=== PATIENT | female | born 1960 | race Caucasian/White ===

== ENCOUNTER 2022-09-14 10:24 | Outpatient (REF) | payer MEDICARE, SELFPAY ==
[2022-09-17 16:24] LABS: Acetylcholine Recept. Blocking <15 (<15)
[2022-09-18 18:18] LABS: Acetylcholine Receptor Binding <0.30 nmol/L
[2022-09-30 15:08] LABS: Acetylcholine Recep Modulating 15
== END 2022-09-14 10:25 | disposition home or self-care (01) ==
LOC: HO.LAB 10:24
PROVIDERS: Visit Provider Psychiatry & Neurology Neurology
DX: H02.409 Unspecified ptosis of unspecified eyelid (principal)
CPT/HCPCS: 36415; 83519

== ENCOUNTER 2022-10-15 11:57 | Outpatient (REF) | payer MEDICARE, SELFPAY ==
[2022-10-15 14:40] LABS: C Reactive Protein 0.25 mg/dL (< or = 0.50)
[2022-10-15 14:43] LABS: Erythrocyte Sedimentation Rate 5 MM/HR (0-20)
[2022-10-17 04:28] LABS: Lyme Abs Screen <0.90 index
== END 2022-10-15 11:58 | disposition home or self-care (01) ==
LOC: HO.LAB 11:57
PROVIDERS: Visit Provider Psychiatry & Neurology Neurology
DX: R51.9 Headache, unspecified (principal)
CPT/HCPCS: 36415; 85652; 86140; 86617; 86618

== ENCOUNTER 2022-12-09 10:04 | Outpatient (REF) | payer MEDICARE, SELFPAY ==
--- NOTE | ~2022-12-09 | XR_ITS ---
EXAMINATION: XR LUMBOSACRAL SPINE CLINICAL INFORMATION: Pain COMPARISON: None available. TECHNIQUE: 4 views of the lumbar spine inclusive of AP, lateral, flexion and extension views FINDINGS: Degenerative changes in the imaged lower thoracic spine. Slight rotatory dextroscoliosis of the lumbar spine. Facet arthritis from the mid to lower lumbar spine. Moderate multilevel lumbar spondylosis with multilevel loss of disc space height and hypertrophic change. Grade 1 anterolisthesis of L3 on L4 with flexion and extension. XR/XR lumbar spine 4V min IMPRESSION: Moderate multilevel degenerative changes in the lumbar spine with grade 1 anterolisthesis of L3 on L4.
== END 2022-12-09 10:05 | disposition home or self-care (01) ==
LOC: HO.HOSX 10:04
PROVIDERS: PCP Internal Medicine; Visit Provider Neurological Surgery
DX: M54.14 Radiculopathy, thoracic region (principal); M43.16 Spondylolisthesis, lumbar region
CPT/HCPCS: 72110; 99212

== ENCOUNTER 2022-12-09 10:04 | Outpatient (AMB) | payer MEDICARE, SELFPAY ==
--- NOTE | 2022-12-09 10:22 | HO.SPINEOV ---
Intake Intake Visit Reasons: Low back pain Intake Note: Mrs. Stapleton is here today c/o low back pain radiating upward into thoracic. MRI done @ [place]/brought disc. [employer] Required: No Assessment & Plan Assessment & Plan (1) Thoracic radiculopathy: Code(s): M54.14 - Radiculopathy, thoracic region (2) Spondylolisthesis, lumbar region: Code(s): M43.16 - Spondylolisthesis, lumbar region Plan Dear colleague Thank you for referring Claudette Stapleton to the office today with a chief complaint of severe low back pain and thoracic radiculopathy. HPI: This 62-year-old female developed low back pain after a fall 6 years ago . The pain is located in the lumbar region and radiates to the front of her thighs after 15 minutes of standing. Slight flexion at the point improves her symptoms. Changing positions from sitting to standing and vice versa are also painful. She states that she is unsteady on her legs due to polyneuropathy which gives her numbness under her feet. A 2nd complaint his a band like pain around the chest that prevents her from wearing bras. The following conservative treatment options were tried without success antiinflammatories, tylenol, physical therapy and cortisone shots PMH: Controlled diabetes, last A1c 7, hypertension, gastric sleeve Allergies: Ibuprofen Social history: . Nonsmoker Physical Exam: Pleasant female in obvious agony. This pain on palpation of the lower spine. Flexion-extension is limited and painful. Neurological exam reviews hyperesthesia bilateral involving the T10-T11 area. Normal reflexes. No motor deficits. Sensory exam is disturbed with reduced sensation on the bottom of her feet. With reduced sensation in the bottom of her feet Radiological Studies: MRI done at [facility] shows a grade 1-2 L3-4 spondylolisthesis. Dynamic x-rays of the lumbar spine review instability with flexion-extension. Impression/Plan: This 62-year-old female suffering from severe low back pain not responding to conservative treatments and a bilateral thoracic radiculopathy in a T10-T11 distribution. We briefly discussed minimally invasive correction of the L3-4 spondylolisthesis through an oblique lumbar interbody fusion but before we take that route, I would like to order an MRI of the thoracic spine to further investigate the reason for her thoracic radiculopathy. She will return to my office after the MRI of the thoracic spine is done. Thank you for allowing me to participate in your patients care. total time spent was 50 minutes in counseling ,coordination of plan, personal review of imaging, surgical decision making and subsequent plan Chris Cat MD, PhD Spine Fellowship Trained Neurosurgeon Director, [facility] Orders: Orders XR lumbar spine 4V min Today M43.16 - Spondylolisthesis, lumbar region MR thoracic spine wo con Today M54.14 - Radiculopathy, thoracic region Coding Level of Care Code Est Pt Level 4 (32478) Diagnoses Thoracic radiculopathy M54.14 Spondylolisthesis, lumbar region M43.16
== END 2022-12-09 11:30 | disposition home or self-care (01) ==
PROVIDERS: PCP Internal Medicine; Visit Provider Neurological Surgery
DX: M54.14 Radiculopathy, thoracic region (principal); M43.16 Spondylolisthesis, lumbar region
CPT/HCPCS: 99214

== ENCOUNTER 2023-02-18 10:26 | Outpatient (REF) | payer MEDICARE, SELFPAY ==
--- NOTE | ~2023-02-18 | MR_ITS ---
EXAMINATION: MR THORACIC SPINE WITHOUT CONTRAST CLINICAL INFORMATION: Radiculopathy, thoracic region. COMPARISON: None available. TECHNIQUE: MRI of the thoracic spine was obtained using routine sequences without contrast. FINDINGS: The thoracic vertebral bodies demonstrate normal heights and alignment. The disc heights are fairly well preserved. A few small Schmorl's nodes are noted. There is no bone marrow edema. The thoracic cord signal appears normal. There is a small central protrusion at T4-T5 and T5-T6. There is no significant narrowing of the spinal canal or neural foramina. The thoracic soft tissues are within normal limits allowing for fatty atrophy of the posterior paraspinal musculature. MR/MR thoracic spine wo con IMPRESSION: No significant narrowing of the spinal canal or neural foramina. Small central protrusion seen at T4-T5 and T5-T6.
== END 2023-02-18 10:27 | disposition home or self-care (01) ==
LOC: HO.MRI 10:26
PROVIDERS: PCP Internal Medicine; Visit Provider Neurological Surgery
DX: M54.14 Radiculopathy, thoracic region (principal)
CPT/HCPCS: 72146

== ENCOUNTER 2023-02-24 11:49 | Outpatient (AMB) | payer MEDICARE, SELFPAY ==
--- NOTE | 2023-02-24 11:56 | MHC.OFFVIS ---
Intake Intake Visit Reasons: MRI follow up [employer] Required: No Assessment & Plan Assessment & Plan (1) Spondylolisthesis, lumbar region: Code(s): M43.16 - Spondylolisthesis, lumbar region Plan Dear colleague, On 02/24/2023 I saw for follow-up Adelina Stapleton after obtaining an MRI of the thoracic spine. As you know, she suffering from back pain and neurogenic claudication due to a grade 2 L3-4 spondylolisthesis and associated spinal stenosis. In addition, she has thoracic radiculopathy but the MRI showed no abnormalities. She would like to go ahead and have her symptoms of neurogenic claudication treated. We discussed an oblique lumbar interbody fusion to minimally invasive correct her spondylolisthesis and indirectly decompress her nervous structures. She will need to stop her Eliquis and aspirin, which she is taken for a pulmonary embolism. She will obtain clearance from her primary care physician. This surgery scheduled is scheduled for 05/10/2023. I spent 25 minutes in his consult to discuss the MRI results and further plan of care, including surgery. Chris Cat MD, PhD Spine Fellowship Trained Neurosurgeon Director, [facility] Coding Level of Care Code Est Pt Level 3 (31485) Diagnoses Spondylolisthesis, lumbar region M43.16
== END 2023-02-24 12:19 | disposition home or self-care (01) ==
PROVIDERS: PCP Internal Medicine; Visit Provider Neurological Surgery
DX: M43.16 Spondylolisthesis, lumbar region (principal)
CPT/HCPCS: 99213

== ENCOUNTER → 2023-02-24 11:49 | Outpatient (BNVA) | payer MEDICARE, SELFPAY | PROVIDERS: PCP Internal Medicine; Visit Provider Neurological Surgery | DX: M43.16 Spondylolisthesis, lumbar region (principal) | CPT/HCPCS: 99212 ==

== ENCOUNTER → 2023-04-29 13:43 | Outpatient (BNV) | payer MEDICARE, SELFPAY | PROVIDERS: Admitting Provider Neurological Surgery; PCP Internal Medicine; Visit Provider Internal Medicine | DX: Z01.818 Encounter for other preprocedural examination (principal) | CPT/HCPCS: 93010 ==

== ENCOUNTER 2023-05-31 08:49 | Inpatient (IN) | payer OTHER, SELFPAY ==
--- NOTE | 2023-04-29 | ECG_ITS ---
Test Reason : pre op Blood Pressure : / mmHG Vent. Rate : 072 BPM Atrial Rate : 072 BPM P-R Int : 136 ms QRS Dur : 086 ms QT Int : 408 ms P-R-T Axes : 009 -15 013 degrees QTc Int : 446 ms Normal sinus rhythm Normal ECG No previous ECGs available Referred By: Lissette Roper Electronically Signed By:GEOFF ALVAREZ
[2023-04-29 12:41] VITALS: BP 136/63; PULSE 77; RESP 20; O2SAT 98; BMI 36.2
--- NOTE | 2023-04-29 12:52 | HO.ANESPROP2 ---
HPI - Anesthesia Eval Consult details Narrative: Resched d/t +COVID 62yo F for L3-4 Oblique Lumbar Interbody Fusion, 05/10/23 No recent illness. Right side CP pt relates to drinking water too fast and s/p gastric bypass RYAN. Does not jazlyn CPAP d/t claustrophobia Hx PE. No longer on Eliquis. Stopped by PCP 03/2023 DM. FBS ~ 100. Ozempic on GERD. Well controlled on ppi Asthma. Symbicort. Albuterol ~ 1 x weekly Bilat foot neuropathy. Anesthesia Pre-Procedure Meds Is the patient on any of the following meds?: Semaglutide (Ozempic) (Last dose planned 04/29/23) If Yes to any meds - educate patient: Pt education - increased risk of aspiration and Pt education - possibility of cancelled proc at provider's discretion PMFSH Active Problems Active Problems: All Active Problems (Updated 04/29/23 @ 12:31 by Armida Juarez RN) Thoracic radiculopathy (Acute) Spondylolisthesis, lumbar region (Acute) Past Medical History Medical History (Updated 04/29/23 @ 12:31 by Armida Juarez RN) Arthritis GERD (gastroesophageal reflux disease) Depression Polysubstance abuse Osteoarthritis Sleep apnea Elevated cholesterol Bipolar 1 disorder RLS (restless legs syndrome) Asthma HTN (hypertension) Pulmonary embolism Peripheral neuropathy Diabetes Family History Family history of problems with anesthesia: No Surgical History Surgical History (Updated 04/29/23 @ 12:33 by Armida Juarez RN) H/O colonoscopy History of total right knee replacement Hx of tonsillectomy Hx of tubal ligation Hx of hysterectomy History of sleeve gastrectomy History of Problems with Anesthesia: No Social History Social History Are you a primary healthcare account manager to a significant other at home: No Do you presently have visiting nurse or other home services: Yes ([facility]) Patient Tobacco Use Status: Never used Tobacco Use of substances other than those prescribed or required for medical reasons: Yes Substance Use Type Other:: cocaine-last used ~2003 Have you been hit, kicked, punched, or otherwise hurt by someone within the past year? If so, by whom?: No Are you DNR?: No Advance Directives Information Provided: Yes (as above noted) Advance Directives on File: No Recently lost weight without trying: No Eating poorly because of decreased appetite: No Nutrition Risks: No Nutritional Risk Poor oral hygiene: Yes (multiple missing teeth) Meds Allergies Allergy/AdvReac Type Severity Reaction Status Date / Time cephalexin [From Keflex] Allergy Intermediate Swelling Verified 04/28/23 11:05 glipizide Allergy Intermediate Rash Verified 04/28/23 11:05 metformin Allergy Intermediate Itching Verified 04/28/23 11:05 morphine Allergy Intermediate Nausea and Verified 04/29/23 12:35 Vomiting/ineffective ropinirole [From Requip] Allergy Intermediate Nausea and Verified 04/28/23 11:05 Vomiting CLARITZA Inhibitors AdvReac Intermediate Cough Verified 04/28/23 11:05 Home Medications Medication Instructions Recorded Confirmed Last Taken Type albuterol sulfate 90 mcg/actuation 2 puff inhalation Q6H PRN 04/28/23 04/29/23 Unknown History aerosol inhaler (Ventolin HFA) Shortness Of Breath aspirin 81 mg tablet,delayed 81 mg PO DAILY 04/28/23 04/28/23 Unknown History release budesonide-formoterol HFA 160 2 puff inhalation BID 04/28/23 04/29/23 Unknown History mcg-4.5 mcg/actuation aerosol inhaler (Symbicort) bupropion HCl 100 mg tablet,12 hr 100 mg PO QAM 04/28/23 04/28/23 Unknown History sustained-release yfamorbbuw-kjqmsgtsklczr-puxehxss 1 tab PO Q6H PRN pain 04/28/23 04/28/23 Unknown History 50 mg-325 mg-40 mg tablet clonazepam 1 mg tablet 1 mg PO TID 04/28/23 04/28/23 Unknown History furosemide 40 mg tablet 20 mg PO DAILY 04/28/23 04/28/23 Unknown History gabapentin 800 mg tablet 800 mg PO BID 04/28/23 04/28/23 Unknown History hydroxyzine HCl 10 mg tablet 10 mg PO TID PRN Anxiety 04/28/23 04/28/23 Unknown History insulin aspart U-100 100 unit/mL 4 - 30 unit subcut TID 04/28/23 04/28/23 Unknown History (3 mL) subcutaneous pen lorazepam 1 mg tablet 1 mg PO TID 04/28/23 04/28/23 Unknown History melatonin 10 mg-lemon balm leaf 1 tab PO BEDTIME 04/28/23 04/28/23 Unknown History extract 1 mg tablet metoprolol tartrate 25 mg tablet 25 mg PO DAILY 04/28/23 04/28/23 Unknown History potassium chloride 10 mEq 10 meq PO DAILY 04/28/23 04/28/23 Unknown History tablet,extended release pramipexole 0.25 mg tablet 0.25 mg PO DAILY 04/28/23 04/28/23 Unknown History pregabalin 150 mg capsule 150 mg PO BID 04/28/23 04/28/23 Unknown History semaglutide 0.25 mg or 0.5 mg (2 0.5 mg subcut QWEEK 04/28/23 04/28/23 Unknown History mg/3 mL) subcutaneous pen injector (Ozempic) topiramate 100 mg tablet 100 mg PO BID 04/28/23 04/28/23 Unknown History trazodone 100 mg tablet 300 mg PO BEDTIME 04/28/23 04/28/23 Unknown History vortioxetine 20 mg tablet 20 mg PO DAILY 04/28/23 04/28/23 Unknown History (Trintellix) lactulose 10 gram/15 mL oral 15 ml PO QAM 04/29/23 04/29/23 Unknown History solution pantoprazole 40 mg tablet,delayed 40 mg PO DAILY 04/29/23 04/29/23 Unknown History release polyethylene glycol 3350 17 gram 17 g PO DAILY PRN constipation 04/29/23 04/29/23 Unknown History oral powder packet sennosides 8.6 mg tablet (senna) 8.6 mg PO BEDTIME 04/29/23 04/29/23 Unknown History Exam Height,Weight and Vital Signs: Height 5 ft 4 in Weight 95.708 kg Last Vital Signs Pulse 77 04/29/23 12:41 Resp 20 04/29/23 12:41 BP 136/63 04/29/23 12:41 Pulse Ox 98 04/29/23 12:41 O2 Del Method Room Air 04/29/23 12:41 Pertinent Lab Results Pertinent Lab Results: Lab Results 04/29/23 04/29/23 Range/Units 13:20 13:22 WBC 16.1 H (4.8-10.8) X10*3/uL RBC 4.69 (4.20-5.50) X10*6/uL Hgb 14.2 (12.0-16.0) g/dl Hct 41.3 (37.0-47.0) % MCV 88.1 (80.0-98.0) fL MCH 30.3 (27.0-33.0) pg MCHC 34.4 (31.0-35.0) g/dl RDW 13.2 (11.0-16.0) % Plt Count 150 L (160-400) X10*3/uL MPV 12.4 H (9.4-12.3) fL Absolute Nucleated RBC 0.000 (0.0-0.012) X10*3/uL Nucleated RBC % (auto) 0.0 (0.0-0.2) /100WBC Sodium 140 (135-145) mmol/L Potassium 4.1 (3.3-5.1) mmol/L Chloride 105 (96-108) mmol/L Carbon Dioxide 23 (22-29) mmol/L Anion Gap 16 (12-20) BUN 16 (9-16) mg/dL Creatinine 0.94 (0.5-1.4) mg/dL Estim Creat Clear Calc 69.6 Estimated GFR > 60 Random Glucose 127 H (60-115) mg/dL Estimat Average Glucose 103 mg/dL Hemoglobin A1c % 5.2 (<6.0) % Calcium 9.3 (8.4-10.2) mg/dL Blood Type A Negative Antibody Screen NEGATIVE Narrative Narrative: EKG 04/2023 Vent. Rate : 072 BPM Atrial Rate : 072 BPM P-R Int : 136 ms QRS Dur : 086 ms QT Int : 408 ms P-R-T Axes : 009 -15 013 degrees QTc Int : 446 ms Normal sinus rhythm Normal ECG No previous ECGs available Airway Mallampati Class: III TM Dist: >3cm Neck ROM: Full Loose/Missing/Broken Teeth: Yes (All lower teeth missing, upper molars missing) Heart: RRR Lungs: CTAB Assessment and Plan Assessment Anesthesia Assessment: Anesthesia Plan Discussed and PAT Visit Final Anesthetic Review Family History of Problems with Anesthesia: No History of Problems with Anesthesia: No
[2023-04-29 13:52] LABS: Hematocrit 41.3 % (37.0-47.0); Hemoglobin 14.2 g/dl (12.0-16.0); Mean Corpuscular HGB Conc 34.4 g/dl (31.0-35.0); Mean Corpuscular Hemoglobin 30.3 pg (27.0-33.0); Mean Corpuscular Volume 88.1 fL (80.0-98.0); Mean Platelet Volume 12.4 fL (9.4-12.3); Platelet Count 150 X10*3/uL (160-400); Red Blood Count 4.69 X10*6/uL (4.20-5.50); Red Cell Distribution Width 13.2 % (11.0-16.0); White Blood Count 16.1 X10*3/uL (4.8-10.8)
[2023-04-29 14:08] LABS: Estimated Average Glucose 103 mg/dL; Hemoglobin A1c % 5.2 % (<6.0)
[2023-04-29 14:12] LABS: Anion Gap 16 (12-20); Blood Urea Nitrogen 16 mg/dL (9-16); Calcium 9.3 mg/dL (8.4-10.2); Carbon Dioxide 23 mmol/L (22-29); Chloride 105 mmol/L (96-108); Creatinine Clr Calc Pharmacy 69.6; Estimated Glomerular Filt Rate > 60; Glucose Random 127 mg/dL (60-115); Potassium 4.1 mmol/L (3.3-5.1); Sodium 140 mmol/L (135-145)
[2023-05-31] VITALS (9 sets, daily range): BP systolic 108–148; BP diastolic 58–79; PULSE 56–84; RESP 16–22; TEMP 36.4–36.8; O2SAT 93–98; BMI 34.7
--- NOTE | ~2023-05-31 | CT_ITS ---
EXAMINATION: CT ABDOMEN AND PELVIS WITHOUT CONTRAST CLINICAL INFORMATION: Abdominal pain. Concern for perforation. COMPARISON: Previous of the same day. TECHNIQUE: Multidetector volumetric imaging was performed from the superior aspect of the liver through the pubic symphysis. Sagittal and coronal reformatted images were obtained on the technologist's workstation. This CT examination was performed using dose optimization techniques as appropriate, variously including the following: *Automated exposure control *Adjustment of mA and/or kV according to patient size (this includes techniques or standardized protocols for targeted exams where dose is matched to indication/reason for exam; i.e. extremities or head) *Use of iterative reconstruction technique DLP: 1544 mGy-cm FINDINGS: LUNG BASES: There is bilateral lower lung field consolidation greater on the left associated with small bilateral pleural effusions. LIVER, GALLBLADDER, AND BILIARY TREE: The liver is normal in size, shape, and attenuation. No focal hepatic lesion or biliary ductal dilatation is present. The gallbladder is mildly distended. PANCREAS: Unremarkable. SPLEEN: Unremarkable. ADRENAL GLANDS: Unremarkable. KIDNEYS AND URETERS: The kidneys are normal in size, shape, and attenuation. No hydronephrosis, hydroureter, or calculi seen. No perinephric stranding. BLADDER: A Segovia catheter decompresses the urinary bladder. GASTROINTESTINAL TRACT: A gastric tube is noted in place. Gastric surgical clips are noted. Orally ingested contrast reaches mid small bowel loops. The appendix is not confidently seen as a separate structure. There is free intraperitoneal air which appears to be mildly increased compared to previous. There is also increasing mildly dense free fluid within the abdomen greater on the right. ABDOMINAL WALL: No significant hernia is appreciated. LYMPH NODES: Normal. VASCULAR: Unremarkable. PELVIC VISCERA: Unremarkable. OSSEOUS STRUCTURES: There is diffuse thoracolumbar disc degenerative change. CT/CT abdomen pelvis wo IV con IMPRESSION: 1. Free intraperitoneal air mildly increased compared with previous. Increasing mildly dense free fluid within the abdomen greater on the right. Gastrointestinal perforation suspected. The site of perforation is undetermined. 2. No bowel obstruction. 3. Bilateral lower lung field consolidation greater on the left with small bilateral pleural effusions. Suspect a combination of atelectasis and pneumonia. Fleischner guidelines were followed.
--- NOTE | ~2023-05-31 | XR_ITS ---
EXAMINATION: XR CHEST CLINICAL INFORMATION: Question pneumonia or pulmonary embolism. COMPARISON: None available. TECHNIQUE: Frontal view of the chest was obtained. FINDINGS: The lung volumes are low. The cardiac and mediastinal contours are normal. There are increased central bronchovascular markings and increased attenuation at the left lung base. It is uncertain whether this is artifactual due to low lung volumes and overlying soft tissues. It is difficult to exclude airways disease/a small pneumonia or mild pulmonary edema. No pleural effusion or pneumothorax. Degenerative changes of the spine. XR/XR chest 1V IMPRESSION: Low lung volumes. Increased central bronchovascular markings and increased attenuation at the left lung base. It is difficult to exclude airways disease/pneumonia or mild pulmonary edema.
--- NOTE | ~2023-05-31 | XR_ITS ---
EXAMINATION: XR CHEST CLINICAL INFORMATION: Hypoxia. COMPARISON: CT abdomen and pelvis of 06/07/2023 and 06/02/2023. Chest radiograph 06/02/2023 TECHNIQUE: Frontal view of the chest was obtained. FINDINGS: ET tube not visualized. Left IJ CVC tip projects at the cavoatrial junction. Enteric tip tube projects in the left upper quadrant of the abdomen. Stable cardiomediastinal silhouette. Low lung volumes. There is no gross pneumothorax. Increased bilateral, predominantly bibasilar zfcx-ywgbsmj-jznw-right opacities. Small left pleural effusion and trace right effusion. Diffusely prominent interstitial opacities. Previously identified pneumoperitoneum is less conspicuous. XR/XR chest 1V IMPRESSION: 1. Increased bilateral, predominantly bibasilar ltlr-jswbbca-qgmk-right opacities. Small left pleural effusion and trace right effusion. Diffusely prominent interstitial opacities. Differential considerations include infectious/inflammatory process, atelectasis and/or edema. 2. Previously identified pneumoperitoneum is less conspicuous. This study was presented today June 07, 2023 for interpretation. Stat results provided at this time as requested by referring provider.
--- NOTE | ~2023-05-31 | CT_ITS ---
EXAMINATION: CT ANGIOGRAM OF THE CHEST WITH AND WITHOUT CONTRAST (CT PULMONARY ANGIOGRAM FOR PE) CLINICAL INFORMATION: Reason for Exam Hypoxia, chest discomfort, elevated trop COMPARISON: Chest radiograph 06/07/2023 TECHNIQUE: Prior to contrast administration, noncontrast localization images were obtained. Subsequently, multidetector volumetric imaging was performed from the thoracic inlet to below the diaphragms following the administration of 80 mL Omnipaque 350 intravenous contrast. No contrast reaction reported Sagittal, coronal, and MIP oblique sagittal reformatted images were obtained on the CT workstation, uploaded to PACS, and reviewed. This CT examination was performed using dose optimization techniques as appropriate, variously including the following: *Automated exposure control *Adjustment of mA and/or kV according to patient size (this includes techniques or standardized protocols for targeted exams where dose is matched to indication/reason for exam; i.e. extremities or head) *Use of iterative reconstruction technique Total exam dose-length product 112 mGy-cm FINDINGS: QUALITY OF STUDY/CONTRAST BOLUS: Satisfactory. PULMONARY ARTERIES: No pulmonary emboli. THORACIC AORTA: No aneurysm. LUNG: Bibasilar infiltrates left greater than right could reflect pneumonia. Patchy alveolar infiltrates are seen extending into the right and left midlung and upper lungs possibly related to pneumonia. PLEURA: Moderate sized bilateral pleural effusions. MEDIASTINUM: Normal heart size. No pericardial effusion. No hilar or mediastinal lymphadenopathy. No evidence of septal bowing or right heart strain. CORONARY ARTERY CALCIFICATION: Minor CHEST WALL/AXILLA: No axillary or internal mammary lymphadenopathy. OSSEOUS STRUCTURES: No acute or suspicious osseous abnormality. UPPER ABDOMEN: Unremarkable. No reflux of contrast into the hepatic veins to suggest elevated right heart pressures. CT/CT angio chest PE protocol IMPRESSION: No evidence for acute PE. Bilateral pleural effusions and infiltrates. VTE: negative.
--- NOTE | ~2023-05-31 | XR_ITS ---
EXAMINATION: XR CHEST CLINICAL INFORMATION: Intubation and left CVC placement. COMPARISON: Chest radiograph 06/02/2023. CT abdomen/pelvis 06/02/2023. TECHNIQUE: Frontal view of the chest was obtained. FINDINGS: Endotracheal tube terminates at 3.5 cm above the pooja. Left IJ CVC tip projects at the level of the lower SVC. Enteric tube courses into the abdomen and terminates at the level of the stomach. Stable prominence of the cardiomediastinal silhouette. Low lung volumes with diffuse bronchovascular crowding. Increased asymmetric airspace opacities projecting over the retrocardiac left lower lobe. No significant pleural effusion or pneumothorax. No acute osseous findings. Redemonstration of pneumoperitoneum. XR/XR chest 1V IMPRESSION: 1. Endotracheal tube terminates at 3.5 cm above the pooja. 2. Left IJ CVC tip projects at the level of the lower SVC. 3. Increased focal airspace opacities in the retrocardiac left lower lobe, nonspecific to represent atelectasis, aspiration or infiltrates. Continued follow-up recommended. 4. Redemonstration of pneumoperitoneum.
--- NOTE | ~2023-05-31 | XR_ITS ---
EXAMINATION: XR CHEST CLINICAL INFORMATION: NG tube placement COMPARISON: Same day earlier TECHNIQUE: Frontal view of the chest was obtained. FINDINGS: Examination is limited due to low lung volume. Nasogastric tube is placed with the tip of coiled tube seen below the diaphragm most likely in the stomach. There is likely intraperitoneal free air seen below the diaphragm. Evaluation of lung taylor is limited due to low volume but there is likely left lower lobe airspace disease adjacent to the diaphragm. XR/XR chest 1V IMPRESSION: Well-positioned NG tube. Pneumoperitoneum
--- NOTE | ~2023-05-31 | FL_ITS ---
EXAMINATION: XR FLUOROSCOPY WITH IMAGES CLINICAL INFORMATION: Fluoroscopy in OR for L3-L4 interbody fusion. COMPARISON: Radiographs lumbar spine 12/09/2022. Thoracic spine 02/18/2023. TECHNIQUE: Fluoroscopy Supervised By: Dr. Cat. Fluoroscopy Time: 48.8 seconds. Cumulative Dose: 49.948 mGy. DAP: 130.688 Gycm2. Images: 1. FINDINGS: Fluoroscopic guidance was provided by the referring physician, Dr. Cat. Radiologist was not in attendance at the time of the exam. Images were later provided to the radiologists. Fluoroscopic images were obtained of intraoperative hardware. Single provided image demonstrates posterior fusion hardware with bilateral rods and screws as well as interdisc spacer at L3-L4. FL/FL guidance in OR IMPRESSION: Fluoroscopy provided for intraoperative guidance for L3-L4 interbody fusion. Please refer to operative report by the supervising physician for more detailed evaluation.
--- NOTE | ~2023-05-31 | CT_ITS ---
EXAMINATION: CT ABDOMEN AND PELVIS WITH CONTRAST CLINICAL INFORMATION: Perforated viscus, febrile, rule out abscess COMPARISON: CT abdomen and pelvis 06/02/2023 TECHNIQUE: Multidetector volumetric images were obtained from the superior aspect of the liver through the pubic symphysis following administration 85 mL of Omnipaque 350 intravenous contrast. Sagittal and coronal reformatted images were obtained on the technologist's workstation. Oral contrast: No This CT examination was performed using dose optimization techniques as appropriate, variously including the following: *Automated exposure control *Adjustment of mA and/or kV according to patient size (this includes techniques or standardized protocols for targeted exams where dose is matched to indication/reason for exam; i.e. extremities or head) *Use of iterative reconstruction technique DLP: 808 mGy-cm FINDINGS: LUNG BASES: Small bilateral pleural effusions, increased on the left compared to prior exam with bibasilar consolidation/atelectasis. LIVER, GALLBLADDER, AND BILIARY TREE: The liver is normal in size, shape, and attenuation. Focal area of hypoattenuation in the left hepatic lobe adjacent to the falciform ligament, which may be related to focal fat infiltration. Otherwise no focal hepatic lesion or biliary ductal dilatation is present. The gallbladder is unremarkable with no evidence of radiopaque gallstones, gallbladder wall thickening, or obvious pericholecystic inflammatory changes. Small amount of perihepatic ascites is noted. PANCREAS: Unremarkable. SPLEEN: Unremarkable. ADRENAL GLANDS: Unremarkable. KIDNEYS AND URETERS: Noted mild cortical thinning along the posterior upper pole of the right kidney. Subtle hypoattenuation along the posterior upper pole of the right kidney, series 5 image 67. The kidney is normal in size shape and attenuation. No hydronephrosis, hydroureter, or calculi seen. No perinephric stranding. BLADDER: The urinary bladder is decompressed with Segovia's catheter. GASTROINTESTINAL TRACT: Again noted enteric tube with its tip terminating in the body the stomach. Again noted surgical sutures along the stomach. The stomach is decompressed. No dilated small bowel loops. Again noted surgical anastomosis involving the small bowel loops in the left mid abdomen. The colon is mostly decompressed limiting evaluation. The appendix is unremarkable. Interval resolution of previously noted free intraperitoneal air. Small abdominopelvic ascites. Mild mesenteric fat stranding. No definite peripherally enhancing collections to suggest abscess. ABDOMINAL WALL: No significant hernia is appreciated. Diffuse anasarca. LYMPH NODES: No enlarged abdominopelvic lymph nodes. VASCULAR: The abdominal aorta is nonaneurysmal with mild atherosclerosis. PELVIC VISCERA: Unremarkable. OSSEOUS STRUCTURES: Stable postsurgical changes related to instrumented posterior spinal and interbody fusion at L3-L4. The surgical hardware is intact. Multilevel degenerative changes of the visualized spine. Multilevel degenerative changes of the visualized spine. CT/CT abdomen pelvis w IV con IMPRESSION: Interval resolution of previously noted free intraperitoneal air. Small abdominopelvic ascites. Mild mesenteric fat stranding. No definite peripherally enhancing collections to suggest evidence of abscess. No evidence of bowel obstruction. Diffuse anasarca. Small bilateral pleural effusions, increased on the left compared to prior exam bibasilar consolidation/atelectasis. Mild cortical thinning along the upper pole of the right kidney. Subtle hypoattenuation along the posterior upper pole of the right kidney which is incompletely evaluated may be related to cortical scarring. This can be correlated with retroperitoneal ultrasound as clinically indicated. Fleischner guidelines were followed.
--- NOTE | ~2023-05-31 | CT_ITS ---
EXAMINATION: CT ABDOMEN AND PELVIS WITHOUT CONTRAST CLINICAL INFORMATION: Concern for bowel injury. COMPARISON: None available. TECHNIQUE: Multidetector volumetric imaging was performed from the superior aspect of the liver through the pubic symphysis. Sagittal and coronal reformatted images were obtained on the technologist's workstation. This CT examination was performed using dose optimization techniques as appropriate, variously including the following: *Automated exposure control *Adjustment of mA and/or kV according to patient size (this includes techniques or standardized protocols for targeted exams where dose is matched to indication/reason for exam; i.e. extremities or head) *Use of iterative reconstruction technique DLP: 688 mGy-cm FINDINGS: LUNG BASES: Consolidation in the lower lobes may represent atelectatic change. Small hiatal hernia. LIVER, GALLBLADDER, AND BILIARY TREE: The noncontrast liver is normal in size and contour. No biliary ductal dilatation is present. The gallbladder is distended. PANCREAS: Unremarkable. SPLEEN: Unremarkable. ADRENAL GLANDS: Unremarkable. KIDNEYS AND URETERS: The kidneys are symmetric in size. No hydronephrosis. No perinephric stranding. BLADDER: Unremarkable. GASTROINTESTINAL TRACT: Status post gastric surgery. Surgical anastomosis in the left midabdomen. No focal bowel wall thickening. No small bowel obstruction. PERITONEUM: Small ascites in abdomen and pelvis. There is moderate pneumoperitoneum. LYMPH NODES: No bulky lymphadenopathy. VASCULAR: Normal caliber abdominal aorta. PELVIC VISCERA: Uterus is surgically absent. OSSEOUS STRUCTURES: Status post L3-L4 interbody fusion. CT/CT abdomen pelvis wo IV con IMPRESSION: Small ascites in the abdomen and pelvis. Moderate pneumoperitoneum. Evaluation of bowel perforation is limited by the lack of administration of enteric contrast to assess for contrast extravasation. Bilateral lower lobe consolidation. Atelectasis versus pneumonia including aspiration.
--- NOTE | ~2023-05-31 | US_ITS ---
EXAMINATION: US VENOUS ULTRASOUND WITH DOPPLER LOWER EXTREMITY, BILATERAL CLINICAL INFORMATION: Elevated d-dimer, swelling. COMPARISON: None available. TECHNIQUE: Ultrasound of the deep veins is performed from the hip to the calf with compression sonography and color and pulse Doppler assessment. Spectral analysis with color-flow imaging is performed. FINDINGS: RIGHT: There is normal venous compression and respiratory variation and augmented flow. The visualized common femoral vein, superficial femoral vein, profunda femoral vein, popliteal vein, and the trifurcation region shows no evidence of deep venous thrombosis. There is no significant popliteal fossa cyst. LEFT: There is normal venous compression and respiratory variation and augmented flow. The visualized common femoral vein, superficial femoral vein, profunda femoral vein, popliteal vein, and the trifurcation region shows no evidence of deep venous thrombosis. There is no significant popliteal fossa cyst. US/US venous duplex LE BI IMPRESSION: No DVT in the bilateral lower extremities with the caveat that the left peroneal veins were not well seen. If the patient's symptoms persist, followup ultrasound in 5 days 7 days might be of value to exclude proximal propagation from a non-visualized calf vein.
--- NOTE | 2023-05-31 07:05 | P.HPSUR_ITS ---
Pre-Procedural Eval Section A - 24 Hr Update-Section A only Date of Service: 05/31/23 The patient is an INPATIENT: No Changes since office visit: No Cold of Flu in the past 2 weeks, No New Medical Problems, No Changes in Medication and No Patient answered all questions Section B - Complete if H&P > 30 days Chief Complaint: Spondylolisthesis, lumbar region Allergies: Allergies Allergy/AdvReac Type Severity Reaction Status Date / Time cephalexin [From Keflex] Allergy Intermediate Swelling Verified 04/28/23 11:05 glipizide Allergy Intermediate Rash Verified 04/28/23 11:05 metformin Allergy Intermediate Itching Verified 04/28/23 11:05 morphine Allergy Intermediate Nausea and Verified 04/29/23 12:35 Vomiting/ineffective ropinirole [From Requip] Allergy Intermediate Nausea and Verified 04/28/23 11:05 Vomiting CLARITZA Inhibitors AdvReac Intermediate Cough Verified 04/28/23 11:05 Review of Systems Sugical H&P ROS: Negative: Constitution, Cardiovascular, Respiratory, Neurological, Psychiatric, Hem-Onc, Allergic/Immunologic, Gastrointestinal, Genitourinary, Musculoskeletal, Integumentary, Endocrine and Eyes/ Ears/Nose/Throat Exam Surgical H&P Exam: Not Evaluated: HEENT, Not Evaluated: Heart, Not Evaluated: Lungs, Not Evaluated: Extremities, Not Evaluated: Abdomen, Not Evaluated: Skin and Not Evaluated: Neurological Plan Diagnosis/Plan: Unchanged L3-4 Oblique lumbar interbody fusion Time Spent With Patient Time: Total time managing care of this patient today __5__ minutes.
--- NOTE | 2023-05-31 08:59 | HO.ANESPROP2 ---
[facility] Active Problems Active Problems: All Active Problems Thoracic radiculopathy (Acute) Spondylolisthesis, lumbar region (Acute) Past Medical History Medical History Arthritis GERD (gastroesophageal reflux disease) Depression Polysubstance abuse Osteoarthritis Sleep apnea Elevated cholesterol Bipolar 1 disorder RLS (restless legs syndrome) Asthma HTN (hypertension) Pulmonary embolism Peripheral neuropathy Diabetes Family History Family history of problems with anesthesia: No Surgical History Surgical History H/O colonoscopy History of total right knee replacement Hx of tonsillectomy Hx of tubal ligation Hx of hysterectomy History of sleeve gastrectomy History of Problems with Anesthesia: No Social History Social History Are you a primary resident care director to a significant other at home: No Do you presently have visiting nurse or other home services: Yes (VNA) Patient Tobacco Use Status: Never used Tobacco Use of substances other than those prescribed or required for medical reasons: Yes Substance Use Type Other:: cocaine-last used ~2003 Have you been hit, kicked, punched, or otherwise hurt by someone within the past year? If so, by whom?: No Are you DNR?: No Advance Directives Information Provided: Yes (as above noted) Advance Directives on File: No Recently lost weight without trying: No Eating poorly because of decreased appetite: No Nutrition Risks: No Nutritional Risk Poor oral hygiene: Yes (multiple missing teeth) Meds Allergies Allergy/AdvReac Type Severity Reaction Status Date / Time cephalexin [From Keflex] Allergy Intermediate Swelling Verified 04/28/23 11:05 glipizide Allergy Intermediate Rash Verified 04/28/23 11:05 metformin Allergy Intermediate Itching Verified 04/28/23 11:05 morphine Allergy Intermediate Nausea and Verified 04/29/23 12:35 Vomiting/ineffective ropinirole [From Requip] Allergy Intermediate Nausea and Verified 04/28/23 11:05 Vomiting doxycycline Allergy Hives Verified 05/31/23 09:14 CLARITZA Inhibitors AdvReac Intermediate Cough Verified 04/28/23 11:05 Active Medications: Current Medications Albuterol Sulfate (Albuterol Sulfate (0.083%) 2.5 Mg/3 Ml Vial.Neb) 2.5 mg INHALE ONCE PRN PRN Reason: Shortness of Breath/Wheezing Lactated Ringer's (Lr) 1,000 mls @ 100 mls/hr IVCONT .Q10H MIKE Vancomycin HCl 1,000 mg/ (Sodium Chloride) 270 mls @ 270 mls/hr IV PREOP ONE Stop: 05/31/23 09:46 Acetaminophen (Ofirmev) 1,000 mg in 100 mls @ 400 mls/hr IV PREOP ONE Stop: 05/31/23 09:01 Home Medications ?Medication ?Instructions ?Recorded ?Confirmed ?Last Taken ?Type albuterol sulfate 90 mcg/actuation 2 puff inhalation Q6H PRN 04/28/23 04/29/23 Unknown History aerosol inhaler (Ventolin HFA) Shortness Of Breath aspirin 81 mg tablet,delayed 81 mg PO DAILY 04/28/23 04/28/23 04/20/23 History release budesonide-formoterol HFA 160 2 puff inhalation BID 04/28/23 04/29/23 05/31/23 07:30 History mcg-4.5 mcg/actuation aerosol inhaler (Symbicort) bupropion HCl 100 mg tablet,12 hr 100 mg PO QAM 04/28/23 04/28/23 05/30/23 History sustained-release cgkjjzwcjy-rftxkkorksrux-hascsvur 1 tab PO Q6H PRN pain 04/28/23 04/28/23 Unknown History 50 mg-325 mg-40 mg tablet clonazepam 1 mg tablet 1 mg PO TID 04/28/23 04/28/23 05/30/23 History furosemide 40 mg tablet 20 mg PO DAILY 04/28/23 04/28/23 05/30/23 History gabapentin 800 mg tablet 800 mg PO BID 04/28/23 04/28/23 05/31/23 07:30 History hydroxyzine HCl 10 mg tablet 10 mg PO TID PRN Anxiety 04/28/23 04/28/23 Unknown History insulin aspart U-100 100 unit/mL 4 - 30 unit subcut TID 04/28/23 04/28/23 05/30/23 History (3 mL) subcutaneous pen lorazepam 1 mg tablet 1 mg PO TID 04/28/23 04/28/23 05/31/23 07:30 History melatonin 10 mg-lemon balm leaf 1 tab PO BEDTIME 04/28/23 04/28/23 Unknown History extract 1 mg tablet metoprolol tartrate 25 mg tablet 25 mg PO DAILY 04/28/23 04/28/23 05/31/23 07:30 History potassium chloride 10 mEq 10 meq PO DAILY 04/28/23 05/30/23 History tablet,extended release pramipexole 0.25 mg tablet 0.25 mg PO DAILY 04/28/23 04/28/23 05/30/23 History pregabalin 150 mg capsule 150 mg PO BID 04/28/23 04/28/23 Unknown History semaglutide 0.25 mg or 0.5 mg (2 0.5 mg subcut QWEEK 04/28/23 04/28/23 05/20/23 History mg/3 mL) subcutaneous pen injector (Ozempic) topiramate 100 mg tablet 100 mg PO BID 04/28/23 04/28/23 05/30/23 History trazodone 100 mg tablet 300 mg PO BEDTIME 04/28/23 04/28/23 05/30/23 History vortioxetine 20 mg tablet 20 mg PO DAILY 04/28/23 04/28/23 05/30/23 History (Trintellix) lactulose 10 gram/15 mL oral 15 ml PO QAM 04/29/23 04/29/23 05/30/23 History solution pantoprazole 40 mg tablet,delayed 40 mg PO DAILY 04/29/23 04/29/23 05/31/23 07:30 History release polyethylene glycol 3350 17 gram 17 g PO DAILY PRN constipation 04/29/23 04/29/23 Unknown History oral powder packet sennosides 8.6 mg tablet (senna) 8.6 mg PO BEDTIME 04/29/23 04/29/23 Unknown History Exam Height,Weight and Vital Signs: Height 5 ft 4 in Weight 91.626 kg Last Vital Signs Pulse 77 04/29/23 12:41 Resp 20 04/29/23 12:41 BP 136/63 04/29/23 12:41 Pulse Ox 98 04/29/23 12:41 O2 Del Method Room Air 04/29/23 12:41 Pertinent Lab Results Pertinent Lab Results: Laboratory Tests 04/29/23 04/29/23 13:20 13:22 WBC 16.1 H RBC 4.69 Hgb 14.2 Hct 41.3 MCV 88.1 MCH 30.3 MCHC 34.4 RDW 13.2 Plt Count 150 L MPV 12.4 H Absolute Nucleated RBC 0.000 Nucleated RBC % (auto) 0.0 Sodium 140 Potassium 4.1 Chloride 105 Carbon Dioxide 23 Anion Gap 16 BUN 16 Creatinine 0.94 Estim Creat Clear Calc 69.6 Estimated GFR > 60 Random Glucose 127 H Estimat Average Glucose 103 Hemoglobin A1c % 5.2 Calcium 9.3 Blood Type A Negative Antibody Screen NEGATIVE Airway Mallampati Class: III (globally poor dentition) TM Dist: >3cm Neck ROM: Full Loose/Missing/Broken Teeth: No Heart: RRR Lungs: CTA Assessment and Plan Assessment Anesthesia Assessment: Anesthesia Plan Discussed and Chart Reviewed Final Anesthetic Review Family History of Problems with Anesthesia: No History of Problems with Anesthesia: No NPO: Yes ASA Class: III Final Preanesthetic Review: Meds/Allgs Chart Reviewed, Consent Obtained/Reviewed and Anes Risks/Benef Reviewed Patient Risk: Intermediate Procedure Risk: Intermediate Anesthetic Plan Anesthetic Plan: GA Disposition: Standard PACU
[2023-05-31] MEDS: methocarbamoL 750 MG TABLET PO (09:23)
[2023-05-31] MEDS: vancomycin HCL 1,500 MG in 0.9 % Sodium Chloride 500 ML 333.33 MG IV (09:36)
[2023-05-31] MEDS: Lactated Ringers 1,000 ML 100 ML IVCONT (09:36)
[2023-05-31 09:43] LABS: Glucose, Whole Blood 117 mg/dL (60-115)
--- NOTE | 2023-05-31 14:18 | W.PM.OPN ---
Operative Note Operative Note Date of Service: 05/31/23 Narrative: Preop Diagnosis: 1.) L3-4 spondylolisthesis 2.) Back pain with neurogenic claudication Procedure: 1) L3-4 discectomy, arthrodesis and implantation cage through an anterolateral, retroperitoneal approach 2) L3-4 posterior instrumented fusion 3) allograft 4) injection of 10 cc of Exparel at the transverse process for a muscular erector spinae block and additional Exparel in paravertebral tissue for postop management Consent Informed Consent was obtained for this operation. I have explained the nature, purpose and benefits of the operation. I have discussed the risks and benefit of the operation including possible complications or adverse events with patient/family. Alternative(s) were discussed with the patient with their relative benefits and risks as well as the consequences of not accepting the operation were included in obtaining consent. Surgeon: JUSTICE GREENE MD, PHD Procedure Assisted By: Terrance schneider Description of Procedure This patient is suffering from back pain and neurogenic claudication. Imaging shows a L3-4 lumbar spondylolisthesis. The patient was offered an oblique lumbar interbody fusion L3-4. The procedure complications were explained. The patient was consented. The patient was brought to the operating room and endotracheally intubated. The patient was turned in a lateral position with the left side up. Prep and drape was done followed by timeout. A small incision was made in the left lower abdominal quadrant. The muscle fascia was opened after which the 3 muscle layer was split to enter the retroperitoneal space. Dilators were docked in the anterior one third of the L3-4 disc space followed by a retractor. The retractor was opened. The L3-4 disc space was exposed. An annulotomy was done after which an elevator Segundo was used to release the disc material from its endplates and to perforate the contralateral side. A partial discectomy was done. An 8 mm, 10 mm height trial implant were inserted. The discectomy was completed. The endplates were prepared. An 12 x 50 mm with 6 degree lordosis CTL Amdica cage filled with allograft was inserted into the disc space under fluoroscopic guidance. This resulted in reduction spondylolisthesis. The retractor was removed. Hemostasis was done. The incision was closed in 2 layers. Steri-Strips used to approximate incision. An OpSite with Tegaderm was used to cover the incision. This marked first part of the procedure. The patient was turned prone on the Hermes spine table. 2C arms were installed for fluoroscopy. Prep and drape was done followed by a second timeout. 2 paramedian incisions were made lateral from the L4 and L5 pedicles. The muscle fascia was opened after which the muscle layer was split bluntly to expose the posterolateral gutter. The following steps were taken. A pediguard tap was used to create a transpedicular trajectory into the vertebral body. A K wire was placed. A specially designed instrument was advanced over the K wire to decorticate the posterolateral gutter in preparation for the posterolateral fusion. A pedicle screw was advanced over the K wire and the K wire was removed. The steps were done for the bilateral L4 and L5 pedicles. A total of 4 CTL pedicle screws were placed with a diameter of 6.5 x 45 mm. Pedicle screws were connected with 45 mm edelmira bilaterally and locked down with locking caps. The extension towers were removed. The posterolateral gutter was filled with allograft to complete the posterolateral L4-5 fusion Hemostasis was done and the incision was closed in 2 layers. Steri-Strips were used to approximate the incision. An OpSite were taken and was used to cover the incision. All sponge and needle counts were correct. Patient was extubated and transferred in stable is to recovery room. Anesthesia: General Estimated Blood Loss (ml): 30 mL Duration of Surgery: 2 hours Complications: None Postoperative Plan: Admit to inpatient for observation
--- NOTE | 2023-05-31 16:21 | PHA.MEDREC ---
Pharmacy Consult ? Medication Reconciliation Pharmacy has completed the medication reconciliation. Reviewed med rec done by nursing
[2023-05-31 16:23] LABS: Glucose, Whole Blood 160 mg/dL (60-115)
[2023-05-31] MEDS: oxyCODONE HCl Immed Release 5 MG TABLET 10 MG PO ×2 (16:37→21:15)
[2023-05-31] MEDS: Insulin Lispro 100 UNIT/ML 3 ML VIAL SUBCUT (16:38)
[2023-05-31] MEDS: clonazePAM 1 MG TABLET PO ×2 (16:38→21:16)
[2023-05-31] MEDS: 0.9 % Sodium Chloride 1,000 ML 75 ML IVCONT (16:38)
[2023-05-31] MEDS: Acetaminophen 1,000 MG/100 ML PIGGYBACK 400 MG IV (17:38)
--- NOTE | 2023-05-31 18:07 | PC.NURSE ---
pt due to void by 1700, pt reports no urge to void. Bladder scanned for 318 ml. Pt up to bathroom to attempt to void with no effect. pt straight cathd at 1800 for 300ml per MD order. Next due to void 2200.
[2023-05-31] MEDS: Ketorolac Tromethamine 15 MG/ML VIAL IVPUSH (19:46)
[2023-05-31] MEDS: HYDROmorphone HCl 1 MG/ML SYRINGE IVPUSH (19:51)
[2023-05-31 20:36] LABS: Glucose, Whole Blood 146 mg/dL (60-115)
[2023-05-31] MEDS: Docusate Sodium 100 MG CAPSULE PO (21:15)
[2023-05-31] MEDS: Sennosides 8.6 MG TABLET PO (21:15)
[2023-05-31] MEDS: Pregabalin 150 MG CAPSULE PO (21:15)
[2023-05-31] MEDS: Gabapentin 400 MG CAPSULE 800 MG PO (21:16)
[2023-05-31] MEDS: traZODone HCL 100 MG TABLET 300 MG PO (21:16)
[2023-05-31] MEDS: Topiramate 100 MG TABLET PO (21:16)
[2023-05-31] MEDS: vancomycin HCL 1,000 MG in 0.9 % Sodium Chloride 250 ML 270 MG IV (23:55)
[2023-06-01] MEDS: HYDROmorphone HCl 1 MG/ML SYRINGE IVPUSH ×4 (00:01→20:53)
[2023-06-01] MEDS: Acetaminophen 1,000 MG/100 ML PIGGYBACK 400 MG IV ×4 (00:53→18:19)
[2023-06-01] MEDS: Ketorolac Tromethamine 15 MG/ML VIAL IVPUSH ×4 (02:16→20:53)
[2023-06-01 03:33] VITALS: BP 119/71; PULSE 66; RESP 16; TEMP 36.7; O2SAT 92
[2023-06-01] MEDS: oxyCODONE HCl Immed Release 5 MG TABLET 10 MG PO ×2 (04:06→17:35)
[2023-06-01] MEDS: 0.9 % Sodium Chloride 1,000 ML 75 ML IVCONT ×2 (04:10→17:35)
[2023-06-01] MEDS: Omeprazole 20 MG CAPSULE.DR PO (05:44)
[2023-06-01 06:46] VITALS: BP 109/59; PULSE 62; RESP 17; TEMP 35.5; O2SAT 94
[2023-06-01 07:01] LABS: Glucose, Whole Blood 89 mg/dL (60-115)
[2023-06-01] MEDS: Fluticasone/Vilanterol 200/25 BLST.W.DEV 1 PUFF INHALE (07:36)
[2023-06-01 07:38] VITALS: PULSE 67; RESP 16; O2SAT 98
--- NOTE | 2023-06-01 07:45 | HO.NEURO.PN ---
Neurosurgery Operative Note Date of Service: 06/01/23 Narrative: Postop day 1. L3-4 oblique lumbar interbody fusion Patient reports pain in her back and pain in her left lower quadrant near the interbody approach incision site. Denies any focal abdominal pain. Denies any nausea vomiting etc. patient denies any radiculopathy down the legs, tingling numbness etc.. She has been up to the bathroom, reports that she is voiding okay. She has eaten a little bit, but has not had a full meal yet. Afebrile, vital signs stable Physical exam patient is awake alert oriented, morbidly obese lying flat in bed, no acute distress, she is uncomfortable performing flexion of her hip secondary to pain near her incision site left lower quadrant. Otherwise she has full strength in bilateral lower extremities with normal sensation. Abdomen is obese nondistended nontender no rebound tenderness or guarding, left lower quadrant incision is clean and dry no signs of hematoma, back dressings are clean and dry no signs of hematoma. Impression: Postop day 1. L3-4 oblique lumbar interbody fusion, patient doing okay with the exception of feeling a lot of back discomfort and pain around her incision site and left lower quadrant when she is moving. Patient had been taking oxycodone prior to admission, so likely has a low pain tolerance, but high narcotic tolerance. We will continue with the Toradol, IV Tylenol, with oxycodone as needed. She tells us she has been eating, has not had a full meal yet. Seems to be holding down liquids okay. She is voiding okay. We will mobilize her with PT, see how she does later today and if she feels steady on her feet we could discharge her home. Patient seen at bedside with Dr. Cat.
[2023-06-01 08:00] VITALS: BP 109/59; PULSE 67
[2023-06-01] MEDS: Pregabalin 150 MG CAPSULE PO ×2 (08:00→20:53)
[2023-06-01] MEDS: Topiramate 100 MG TABLET PO ×2 (08:00→20:54)
[2023-06-01] MEDS: Pramipexole Di-HCL 0.25 MG TABLET PO (08:00)
[2023-06-01] MEDS: Gabapentin 400 MG CAPSULE 800 MG PO ×2 (08:00→20:53)
[2023-06-01] MEDS: Docusate Sodium 100 MG CAPSULE PO ×2 (08:00→20:54)
[2023-06-01] MEDS: Metoprolol Tartrate 25 MG TABLET PO (08:00)
[2023-06-01] MEDS: Lactulose 20 GM/30 ML SOLUTION 10 GM PO (08:00)
[2023-06-01] MEDS: Furosemide 20 MG TABLET PO (08:00)
[2023-06-01] MEDS: Vortioxetine Hydrobromide 20 MG TABLET PO (08:00)
[2023-06-01] MEDS: clonazePAM 1 MG TABLET PO ×3 (08:00→20:54)
--- NOTE | 2023-06-01 08:41 | HO.POSTANES ---
Post Anesthesia Evaluation Post Anesthesia Evaluation Date of Service: 06/01/23 Vital Signs: Vital Signs Temp Pulse Resp BP Pulse Ox O2 Del Method 06/01/23 08:00 109/59 L 06/01/23 08:00 67 109/59 L 06/01/23 07:38 67 16 06/01/23 06:46 96 F L 62 17 109/59 L 94 Room Air 06/01/23 03:33 98.1 F 66 16 119/71 92 Room Air Anesthesia: General Endotracheal-GETA Mental Status: Awake Pain Control: Satisfactory Nausea/Vomiting: None Hydration: Adequate Anesthesia-Related Issues: No Anes. Related Issues
--- NOTE | 2023-06-01 08:55 | MHC.CM.PN ---
IMM DELIVERED PT LIVES WITH [facility]. USES [facility] FOR MOBILITY. +HCP PCP DP: HOME NO SERVICES VS HOME WITH [facility]. PT FIRST CHOICE IS [facility]. [facility] WILL TRANSPORT. CM WILL CONTINUE TO FOLLOW FOR ANY CHANGE IN DC PLAN/NEEDS.
[2023-06-01 11:09] LABS: Glucose, Whole Blood 75 mg/dL (60-115)
--- NOTE | 2023-06-01 14:40 | MHC.CLN ---
CONSULT FOR WT LOSS CURRENT WT 91.6KG (05/31/23) PREVIOUS WT 95.7KG (04/29/23) PT WITH 4% NONSIGNIFICANT WT LOSS X 30 DAYS PT REMAINS OBESE FOR HT MONITOR PO INTAKE CONTINUE CURRENT CARE PLAN
[2023-06-01 15:10] VITALS: BP 123/60; PULSE 62; RESP 16; TEMP 36.3; O2SAT 93
[2023-06-01 16:31] LABS: Glucose, Whole Blood 104 mg/dL (60-115)
--- NOTE | 2023-06-01 16:36 | P.F2F_ITS ---
Service Date Service Date: 06/01/23 Encounter Date of encounter: 06/01/23 Reasons for Services Signs and symptoms assessed: Low back pain, postoperative L3-4 lumbar fusion Reason for custodial: neurological assessment, wound care and postoperative assessment and/or care Reason for physical therapy: home safety and mobility, therapeutic exercises, gait/transfer training and ADL training Homebound: Leaving the home is medically contraindicated at this time without the asist of a device and/or another person due th the listed conditions above and below. Reason homebound: unsteady gait / fall risk, pain with ambulation and pain with transfers Certification: Based on the above findings, I certify that this patient is confined to the home and needs intermittent custodial care, physical therapy and/or speech therapy, or continues to need occupational therapy. The patient is under my care, and I have initiated the establishment of the plan of care. The patient will be followed by a physician who will periodically review the plan of care. Time Spent With Patient Time: Total time managing care of this patient today __ 5 __ minutes.
[2023-06-01 20:00] VITALS: BP 144/76; PULSE 64; RESP 18; TEMP 36.6; O2SAT 95
[2023-06-01 20:39] LABS: Glucose, Whole Blood 93 mg/dL (60-115)
[2023-06-01] MEDS: traZODone HCL 100 MG TABLET 300 MG PO (20:53)
[2023-06-01] MEDS: Sennosides 8.6 MG TABLET PO (20:54)
[2023-06-02] VITALS (25 sets, daily range): BP systolic 72–132; BP diastolic 32–81; PULSE 72–102; RESP 13–84; TEMP 32–38.1; O2SAT 88–100
--- NOTE | 2023-06-02 | ECG_ITS ---
Test Reason : HYPOXIA Blood Pressure : / mmHG Vent. Rate : 081 BPM Atrial Rate : 081 BPM P-R Int : 138 ms QRS Dur : 080 ms QT Int : 368 ms P-R-T Axes : 002 -18 -04 degrees QTc Int : 427 ms Normal sinus rhythm Cannot rule out Anterior infarct , age undetermined Abnormal ECG When compared with ECG of 29-APR-2023 13:43, No significant change was found Referred By: Rachel Figueroa Electronically Signed By:TOM RYDER MD
[2023-06-02] MEDS: Acetaminophen 1,000 MG/100 ML PIGGYBACK 400 MG IV ×3 (01:56→12:56)
[2023-06-02] MEDS: Ketorolac Tromethamine 15 MG/ML VIAL IVPUSH ×3 (01:56→14:06)
[2023-06-02 05:40] LABS: Glucose, Whole Blood 143 mg/dL (60-115)
[2023-06-02] MEDS: 0.9 % Sodium Chloride 1,000 ML 75 ML IVCONT (06:03)
[2023-06-02] MEDS: Lactated Ringers 1,000 ML 999 ML IV ×2 (06:14→22:11)
[2023-06-02 07:11] LABS: Glucose, Whole Blood 136 mg/dL (60-115)
[2023-06-02] MEDS: Fluticasone/Vilanterol 200/25 BLST.W.DEV 1 PUFF INHALE (08:43)
--- NOTE | 2023-06-02 09:32 | HO.NEUROPN_ITS ---
Neurosurgery Operative Note Date of Service: 06/02/23 Narrative: POD: 2 Procedure: L3-4 oblique lumbar interbody fusion Adelina was seen this morning on [facility] sitting upright in bed. Overnight hospitalist reports she had an episode of hypotension and diaphoresis. No tachycardia or fever. Her oxygen saturation has remained around 94/95 on 2 L of oxygen. She is not on at-home oxygen or CPAP. She reports she is still experiencing quite a bit of back pain, and has difficulty articulating how she feels at this time. Her responses are somewhat restricted when answering. She had a consult from respiratory therapy this morning who administered a breathing treatment. 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 Afebrile, vital signs stable. Oxygen remains at 95% on 2L during this evaluation. No focal neurological deficits. No pronator drift on exam. Patient is A&Ox3 but does struggle to respond briskly. No calf tenderness or swelling. Some abdominal tenderness, but no bloating or distention. Back dressings have some staining without signs of hematoma. No active sanguineous drainage. Area is dry. Plan: An internal medicine consult has been placed for concern of PE / PNA, and the on-call hospitalist was notified via tiger text. I ordered 5000 units of heparin to be given stat for concern of possible PE given she has a history of pulmonary embolism in his having trouble maintaining her O2 saturation on 2 L of oxygen. CBC, troponin, BNP, and D-dimer were also ordered as part of a workup for pulmonary embolism. Thankfully she has not tachycardic, and her hypotension was resolved last night after administration of lactated Ringer's. She is also somewhat somnolent, but has no focal neurological deficits and is able to follow one-step commands, so there is low concern for TIA / Stroke. Additionally, I have ordered a chest x-ray to r/o atelectasis / PNA. This assessment and plan was discussed with the attending neurosurgeon Dr. Cat who also evaluated the patient. He recommended a CT abdomen pelvis was also ordered to rule out abdominal/vascular injury from surgery. Pravin Cat MD,PhD [facility]
[2023-06-02 09:34] LABS: D Dimer High Sensitivity 2351 NG/ML
[2023-06-02] MEDS: Heparin Sodium,Porcine 5,000 UNIT/ML VIAL 5000 UNIT SUBCUT (09:44)
[2023-06-02 09:45] LABS: Hematocrit 41.2 % (37.0-47.0); Hemoglobin 13.6 g/dl (12.0-16.0); Mean Corpuscular Hemoglobin 29.8 pg (27.0-33.0); Mean Corpuscular Volume 90.4 fL (80.0-98.0); Mean Platelet Volume 12.9 fL (9.4-12.3); Platelet Count 169 X10*3/uL (160-400); Red Blood Count 4.56 X10*6/uL (4.20-5.50); Red Cell Distribution Width 14.1 % (11.0-16.0); White Blood Count 7.6 X10*3/uL (4.8-10.8)
[2023-06-02 09:51] LABS: B Type Natriuretic Peptide 40 pg/mL (<100)
[2023-06-02 09:53] LABS: Troponin-I High Sensitivity 3.2 ng/L (<3.5-17.0)
[2023-06-02 11:03] LABS: Band Neutrophils Percent 13 % (3-5); Lymphocytes Absolute Manual 0.4 X10*3/uL (1.2-4.9); Lymphocytes Percent Manual 5 % (20-40); Metamyelocytes Absolute 0.2 X10*3/uL; Metamyelocytes Percent 2 %; Monocytes Absolute Manual 0.2 X10*3/uL (0.1-1.2); Monocytes Percent Manual 3 % (2-11); Neutrophils Absolute Manual 6.8 X10*3/uL (2.0-8.3); Neutrophils Percent Manual 77 % (45-73)
[2023-06-02] MEDS: Gabapentin 400 MG CAPSULE 800 MG PO (11:03)
[2023-06-02] MEDS: Lactulose 20 GM/30 ML SOLUTION 10 GM PO (11:04)
[2023-06-02] MEDS: Pramipexole Di-HCL 0.25 MG TABLET PO (11:04)
[2023-06-02] MEDS: Docusate Sodium 100 MG CAPSULE PO (11:04)
[2023-06-02] MEDS: clonazePAM 1 MG TABLET PO (11:04)
[2023-06-02] MEDS: Topiramate 100 MG TABLET PO (11:04)
[2023-06-02] MEDS: Pregabalin 150 MG CAPSULE PO (11:04)
[2023-06-02] MEDS: Vortioxetine Hydrobromide 20 MG TABLET PO (11:04)
[2023-06-02 11:05] LABS: Glucose, Whole Blood 148 mg/dL (60-115)
[2023-06-02 11:08] LABS: Toxic Vacuolation PRESENT
[2023-06-02 11:09] LABS: Platelet Estimate NORMAL (NORMAL); Platelet Morphology Comment NORMAL; RBC Morphology NORMAL
[2023-06-02] MEDS: 0.9 % Sodium Chloride 1,000 ML 999 ML IV ×2 (11:33→16:10)
[2023-06-02] MEDS: HYDROmorphone HCl 1 MG/ML SYRINGE IVPUSH (11:33)
--- NOTE | 2023-06-02 13:09 | MHC.CM.PN ---
EMR REVIEWED. PT IS NOT MEDICALLY CLEARED FOR DC . [facility] UPDATED AND CM WILL CONTINUE TO FOLLOW FOR ANY CHANGE IN DC PLAN/NEEDS.
[2023-06-02 14:00] LABS: Creatinine Clr Calc Pharmacy 24.8; Estimated Glomerular Filt Rate 19
[2023-06-02] MEDS: levoFLOXacin/D5W 750 MG/150 ML PIGGYBACK 100 MG IV (14:06)
--- NOTE | 2023-06-02 14:51 | PM.IMCN ---
History of Present Illness Data of Consult Service Date: 06/02/23 Primary Care Provider: Kat Nevarez MD HPI Reason for consult: Hypoxia A 62 years old lady with PMH of asthma, DMII, neuropathy among others who presented for elective L3-4 Discectomy by neurosurgery developed hypoxia this morning. The patient reports significant pain in her back. feels her breathing is altered but reported also having difficulties breathing for a long time now. denies any chest pain, palpitations, dyspnea on rest, sweating, leg pain or swelling. Noted this morning to drop her O2 requring 2 L of O2 to keep it in 90s. She had the surgery [address] abdomen showing evidence of atelactasis. D-Dimer elevated at 1999 Hospitalist team asked to evaluate. Review of Systems Review of Systems: No fever, chills but has generalized weakness No chest pain, palpitation reporting shortness of breath occasions No abdominal pain, nausea or vomiting No urinary symptoms No any rash or wounds PMFSH Medical History Arthritis GERD (gastroesophageal reflux disease) Depression Polysubstance abuse Osteoarthritis Sleep apnea Elevated cholesterol Bipolar 1 disorder RLS (restless legs syndrome) Asthma HTN (hypertension) Pulmonary embolism Peripheral neuropathy Diabetes Surgical History H/O colonoscopy History of total right knee replacement Hx of tonsillectomy Hx of tubal ligation Hx of hysterectomy History of sleeve gastrectomy Social History Household Members: Spouse Housing: House Are you a primary care services manager to a significant other at home: No Do you presently have visiting nurse or other home services: No Patient Tobacco Use Status: Never used Tobacco service: No Meds Allergies Allergy/AdvReac Type Severity Reaction Status Date / Time cephalexin [From Keflex] Allergy Intermediate Swelling Verified 04/28/23 11:05 glipizide Allergy Intermediate Rash Verified 04/28/23 11:05 metformin Allergy Intermediate Itching Verified 04/28/23 11:05 morphine Allergy Intermediate Nausea and Verified 04/29/23 12:35 Vomiting/ineffective ropinirole [From Requip] Allergy Intermediate Nausea and Verified 04/28/23 11:05 Vomiting doxycycline Allergy Hives Verified 05/31/23 09:14 CLARITZA Inhibitors AdvReac Intermediate Cough Verified 04/28/23 11:05 Active Medications: Current Medications Albuterol Sulfate (Albuterol Sulfate (0.083%) 2.5 Mg/3 Ml Vial.Neb) 2.5 mg INHALE ONCE PRN PRN Reason: Shortness of Breath/Wheezing Albuterol Sulfate (Albuterol Sulfate 90 Mcg 8 Gm Inhaler) 2 puff INHALE Q6H PRN PRN Reason: Shortness Of Breath Clonazepam (Clonazepam 1 Mg Tablet) 1 mg PO TID [facility] Last Admin: 06/02/23 14:06 Dose: Not Given Docusate Sodium (Docusate Sodium 100 Mg Capsule) 100 mg PO BID [facility] Last Admin: 06/02/23 11:04 Dose: 100 mg Fluticasone/Vilanterol (Fluticasone/Vilanterol 200/25 Blst.W.Dev) 1 puff INHALE RDAILY [facility] Last Admin: 06/02/23 08:43 Dose: 1 puff Furosemide (Furosemide 20 Mg Tablet) 20 mg PO DAILY [facility]; Protocol Last Admin: 06/02/23 11:05 Dose: Not Given Gabapentin (Gabapentin 400 Mg Capsule) 800 mg PO BID [facility] Last Admin: 06/02/23 11:03 Dose: 800 mg Glucose (Glucose Gel 15 Gm Gel..Gram.) 15 gm PO Q15M PRN; Protocol PRN Reason: per Hypoglycemia Standing Ord. Hydromorphone HCl (Hydromorphone Hcl 1 Mg/Ml Syringe) 1 mg IVPUSH Q3H PRN; Protocol PRN Reason: Pain, Severe (Pain Scale 7-10) Last Admin: 06/02/23 11:33 Dose: 1 mg Sodium Chloride (Ns) 1,000 mls @ 75 mls/hr IVCONT .[id number] [facility] Last Admin: 06/02/23 06:03 Dose: 75 mls/hr Acetaminophen (Ofirmev) 1,000 mg in 100 mls @ 400 mls/hr IV Q6H [facility] Last Infusion: 06/02/23 13:11 Dose: Infused Dextrose (D10) 250 mls @ 750 mls/hr IV Q15M PRN; Protocol PRN Reason: per Hypoglycemia Standing Ord. Levofloxacin (Levaquin) 750 mg in 150 mls @ 100 mls/hr IV Q24H [facility] Last Admin: 06/02/23 14:06 Dose: 100 mls/hr Insulin Human Lispro (Insulin Lispro 100 Unit/Ml 3 Ml Vial) 0 unit SUBCUT QIDACHS [facility]; Protocol Last Admin: 06/02/23 11:15 Dose: Not Given Ketorolac Tromethamine (Ketorolac Tromethamine 15 Mg/Ml Vial) 15 mg IVPUSH Q6H [facility] Last Admin: 06/02/23 14:06 Dose: 15 mg Lactulose (Lactulose 20 Gm/30 Ml Solution) 10 gm PO DAILY [facility] Last Admin: 06/02/23 11:04 Dose: 10 gm Metoprolol Tartrate (Metoprolol Tartrate 25 Mg Tablet) 25 mg PO DAILY [facility]; Protocol Last Admin: 06/02/23 11:05 Dose: Not Given Non-Formulary Medication (Bupropion Hcl) 100 mg PO QAM [facility] Omeprazole (Omeprazole 20 Mg Capsule.Dr) 20 mg PO DAILY@0630 [facility] Last Admin: 06/02/23 06:18 Dose: Not Given Ondansetron HCl (Ondansetron Hcl 4 Mg/2 Ml Vial) 4 mg IVPUSH Q6H PRN PRN Reason: Nausea and Vomiting Oxycodone HCl (Oxycodone Hcl Immed Release 5 Mg Tablet) 5 mg PO Q4H PRN PRN Reason: Pain, Moderate(Pain Scale 4-6) Oxycodone HCl (Oxycodone Hcl Immed Release 5 Mg Tablet) 10 mg PO Q4H PRN PRN Reason: Pain, Severe (Pain Scale 7-10) Last Admin: 06/01/23 17:35 Dose: 10 mg Pharmacy Consult (Consult Rx Vancomycin Dosing) 1 each MISCELLANE DAILY PRN PRN Reason: Consult order Polyethylene Glycol (Polyethylene Glycol 3350 17 Gm Powd.Pack) 17 gm PO DAILY PRN PRN Reason: constipation Pramipexole Dihydrochloride (Pramipexole Di-Hcl 0.25 Mg Tablet) 0.25 mg PO DAILY [facility] Last Admin: 06/02/23 11:04 Dose: 0.25 mg Pregabalin (Pregabalin 150 Mg Capsule) 150 mg PO BID [facility] Last Admin: 06/02/23 11:04 Dose: 150 mg Senna (Sennosides 8.6 Mg Tablet) 8.6 mg PO BEDTIME [facility] Last Admin: 06/01/23 20:54 Dose: 8.6 mg Topiramate (Topiramate 100 Mg Tablet) 100 mg PO BID [facility] Last Admin: 06/02/23 11:04 Dose: 100 mg Trazodone HCl (Trazodone Hcl 100 Mg Tablet) 300 mg PO BEDTIME [facility] Last Admin: 06/01/23 20:53 Dose: 300 mg Vortioxetine (Vortioxetine Hydrobromide 20 Mg Tablet) 20 mg PO DAILY [facility] Last Admin: 06/02/23 11:04 Dose: 20 mg Home Medications ?Medication ?Instructions ?Recorded ?Confirmed ?Last Taken ?Type albuterol sulfate 90 mcg/actuation 2 puff inhalation Q6H PRN 04/28/23 04/29/23 Unknown History aerosol inhaler (Ventolin HFA) Shortness Of Breath aspirin 81 mg tablet,delayed 81 mg PO DAILY 04/28/23 04/28/23 04/20/23 History release budesonide-formoterol HFA 160 2 puff inhalation BID 04/28/23 04/29/23 05/31/23 07:30 History mcg-4.5 mcg/actuation aerosol inhaler (Symbicort) bupropion HCl 100 mg tablet,12 hr 100 mg PO QAM 04/28/23 04/28/23 05/30/23 History sustained-release [id number] 1 tab PO Q6H PRN pain 04/28/23 04/28/23 Unknown History 50 mg-325 mg-40 mg tablet clonazepam 1 mg tablet 1 mg PO TID 04/28/23 04/28/23 05/30/23 History furosemide 40 mg tablet 20 mg PO DAILY 04/28/23 04/28/23 05/30/23 History gabapentin 800 mg tablet 800 mg PO BID 04/28/23 04/28/23 05/31/23 07:30 History hydroxyzine HCl 10 mg tablet 10 mg PO TID PRN Anxiety 04/28/23 04/28/23 Unknown History insulin aspart U-100 100 unit/mL 4 - 30 unit subcut TID 04/28/23 04/28/23 05/30/23 History (3 mL) subcutaneous pen lorazepam 1 mg tablet 1 mg PO TID 04/28/23 04/28/23 05/31/23 07:30 History melatonin 10 mg-lemon balm leaf 1 tab PO BEDTIME 04/28/23 04/28/23 Unknown History extract 1 mg tablet metoprolol tartrate 25 mg tablet 25 mg PO DAILY 04/28/23 04/28/23 05/31/23 07:30 History potassium chloride 10 mEq 10 meq PO DAILY 04/28/23 05/30/23 History tablet,extended release pramipexole 0.25 mg tablet 0.25 mg PO DAILY 04/28/23 04/28/23 05/30/23 History pregabalin 150 mg capsule 150 mg PO BID 04/28/23 04/28/23 Unknown History semaglutide 0.25 mg or 0.5 mg (2 0.5 mg subcut QWEEK 04/28/23 04/28/23 05/20/23 History mg/3 mL) subcutaneous pen injector (Ozempic) topiramate 100 mg tablet 100 mg PO BID 04/28/23 04/28/23 05/30/23 History trazodone 100 mg tablet 300 mg PO BEDTIME 04/28/23 04/28/23 05/30/23 History vortioxetine 20 mg tablet 20 mg PO DAILY 04/28/23 04/28/23 05/30/23 History (Trintellix) lactulose 10 gram/15 mL oral 15 ml PO QAM 04/29/23 04/29/23 05/30/23 History solution pantoprazole 40 mg tablet,delayed 40 mg PO DAILY 04/29/23 04/29/23 05/31/23 07:30 History release polyethylene glycol 3350 17 gram 17 g PO DAILY PRN constipation 04/29/23 04/29/23 Unknown History oral powder packet sennosides 8.6 mg tablet (senna) 8.6 mg PO BEDTIME 04/29/23 04/29/23 Unknown History Physical Exam Vital Signs and Narrative: Vital Signs: Last Vital Signs Temp 98 F 06/02/23 06:56 Pulse 82 06/02/23 12:42 Resp 18 06/02/23 08:47 BP 107/54 L 06/02/23 12:42 Pulse Ox 90 L 06/02/23 06:56 O2 Del Method Nasal Cannula 06/02/23 06:56 O2 Flow Rate 3 06/02/23 06:56 BMI result Body Mass Index 34.7 Const: Other: Constitutional : Awake, frail looking, not in distress Neck : Normal inspection, Supple Cardiovascular : RRR, no JVP, trace lower extremity edema Respiratory : good bilateral air entry, no crackles, expiratory wheezes Gastrointestinal: soft, lax, Normal bowel sounds, Non tender Skin : Warm, Dry Neurological : Alert & oriented x3, No focal deficit Results Labs 06/02/23 09:15 06/02/23 13:41 Labs: Laboratory Results - last 24 hr 06/01/23 06/01/23 06/02/23 16:18 20:35 05:34 MCV MCH MCHC RDW Plt Count MPV Immature Gran % (Auto) Neut % (Auto) Lymph % (Auto) [place] % (Auto) Eos % (Auto) Baso % (Auto) Lymph # (Auto) [place] # (Auto) Eos # (Auto) Baso # (Auto) Abs Immat Gran (auto) Absolute Neuts (auto) Absolute Nucleated RBC Nucleated RBC % (auto) Neutrophils % (Manual) Band Neutrophils % Lymphocytes % (Manual) Monocytes % (Manual) Metamyelocytes % Abs Neuts (Manual) Lymphocytes # (Manual) Monocytes # (Manual) Metamyelocytes # Toxic Vacuolation Platelet Estimate Plt Morphology Comment RBC Morphology D-Dimer High Sensitivty Estim Creat Clear Calc Estimated GFR POC Glucose 104 93 143 H Troponin I High Sens B-Natriuretic Peptide 06/02/23 06/02/23 06/02/23 07:00 09:15 10:54 MCV 90.4 MCH 29.8 MCHC 33.0 RDW 14.1 Plt Count 169 MPV 12.9 H Immature Gran % (Auto) Cancelled Neut % (Auto) Cancelled Lymph % (Auto) Cancelled [place] % (Auto) Cancelled Eos % (Auto) Cancelled Baso % (Auto) Cancelled Lymph # (Auto) Cancelled [place] # (Auto) Cancelled Eos # (Auto) Cancelled Baso # (Auto) Cancelled Abs Immat Gran (auto) Cancelled Absolute Neuts (auto) Cancelled Absolute Nucleated RBC 0.000 Nucleated RBC % (auto) 0.0 Neutrophils % (Manual) 77 H Band Neutrophils % 13 H Lymphocytes % (Manual) 5 L Monocytes % (Manual) 3 Metamyelocytes % 2 Abs Neuts (Manual) 6.8 Lymphocytes # (Manual) 0.4 L Monocytes # (Manual) 0.2 Metamyelocytes # 0.2 Toxic Vacuolation PRESENT Platelet Estimate NORMAL Plt Morphology Comment NORMAL RBC Morphology NORMAL D-Dimer High Sensitivty 2351 Estim Creat Clear Calc Estimated GFR POC Glucose 136 H 148 H Troponin I High Sens 3.2 B-Natriuretic Peptide 40 06/02/23 13:41 MCV MCH MCHC RDW Plt Count MPV Immature Gran % (Auto) Neut % (Auto) Lymph % (Auto) [place] % (Auto) Eos % (Auto) Baso % (Auto) Lymph # (Auto) [place] # (Auto) Eos # (Auto) Baso # (Auto) Abs Immat Gran (auto) Absolute Neuts (auto) Absolute Nucleated RBC Nucleated RBC % (auto) Neutrophils % (Manual) Band Neutrophils % Lymphocytes % (Manual) Monocytes % (Manual) Metamyelocytes % Abs Neuts (Manual) Lymphocytes # (Manual) Monocytes # (Manual) Metamyelocytes # Toxic Vacuolation Platelet Estimate Plt Morphology Comment RBC Morphology D-Dimer High Sensitivty Estim Creat Clear Calc 24.8 Estimated GFR 19 POC Glucose Troponin I High Sens B-Natriuretic Peptide Imaging Radiologist's Impressions: Impressions Chest X-Ray 06/02/23 09:30 IMPRESSION: Low lung volumes. Increased central bronchovascular markings and increased attenuation at the left lung base. It is difficult to exclude airways disease/pneumonia or mild pulmonary edema. Abdomen/Pelvis CT 06/02/23 10:28 IMPRESSION: Small ascites in the abdomen and pelvis. Moderate pneumoperitoneum. Evaluation of bowel perforation is limited by the lack of administration of enteric contrast to assess for contrast extravasation. Bilateral lower lobe consolidation. Atelectasis versus pneumonia including aspiration. Assessment and Plan (1) Hypoxia: Status: Acute (2) Hypotension: Status: Acute Plan A 62 years old lady with PMH of asthma, DMII, neuropathy among others who presented for elective L3-4 Discectomy by neurosurgery developed hypoxia this morning. Hypotension Likely 2/2 pain/HTN meds and decrease intake bolus of fluids hold BP meds monitor response Hypoxia Wells score of 1.5, less than 2% chance of PE inspite of elevated D-Dimer CT Abd showing bilateral infiltrates\atelactasis incentive spirometry chest physiotherapy cover with Levaquin wean O2 as toelrated Continue rest of home medications. hold Metoprolol and lasix for low BP Thank you for the consult, will continue to monitor with you
--- NOTE | 2023-06-02 15:30 | PC.NURSE ---
Pt BP post bolus @0700 132/64. Pt drowsy but arousable. O2 90% on 3L. Abdomen softly distended and reports abdominal pain. Speech slow and slow to respond and B/L weakness. Surgery in to see patient. Ordered troponin, D-Dimer, CXR, CT abdomen. Hospitalist consulted. Further labs and EKG ordered. Levaquin ordered. Pt more awake @ 1100 and requesting dilaudid. BP 92/51. Reported to Dr. Figueroa. 1L NS bolus ordered and given and ok'd to give dilaudid. BP post bolus 107/54. Pt becoming more difficult to arouse. Creatinine 2.57. Results of imaging and labs reported to Dr. Figueroa. Up to evauate patient. Pt no void 7-3 shift. Bladder scanned for 444cc. Straight cathed 475cc yellow urine.
--- NOTE | 2023-06-02 15:56 | ECG_ITS ---
Test Reason : cp Blood Pressure : / mmHG Vent. Rate : 087 BPM Atrial Rate : 087 BPM P-R Int : 126 ms QRS Dur : 082 ms QT Int : 360 ms P-R-T Axes : 009 -14 010 degrees QTc Int : 433 ms Normal sinus rhythm Low voltage QRS Cannot rule out Anterior infarct (cited on or before 02-JUN-2023) Abnormal ECG When compared with ECG of 02-JUN-2023 13:15, No significant change was found Referred By: Chris Cat Electronically Signed By:TOM RYDER MD
[2023-06-02 16:08] LABS: Glucose, Whole Blood 150 mg/dL (60-115)
[2023-06-02 16:17] LABS: Alanine Aminotransferase 23 U/L (0-31); Albumin Level 2.7 g/dL (3.5-5.0); Alkaline Phosphatase 46 U/L (39-117); Anion Gap 14 (12-20); Aspartate Amino Transferase 41 U/L (5-31); Blood Urea Nitrogen 19 mg/dL (9-16); Calcium 7.8 mg/dL (8.4-10.2); Carbon Dioxide 15 mmol/L (22-29); Chloride 113 mmol/L (96-108); Glucose Random 142 mg/dL (60-115); Potassium 3.6 mmol/L (3.3-5.1); Sodium 138 mmol/L (135-145); Total Protein 4.8 g/dL (6.5-8.0)
[2023-06-02] MEDS: Albumin Human 25 % 100 ML IV ×2 (16:30→18:31)
--- NOTE | 2023-06-02 16:43 | PC.NURSE ---
Found patient very weak ,tired,difficulty obtaining BP ,BP 88/58 pulse 87,sat 87% on 2l.Repositioned patient,oxygen increased to 4 liters sat up to 91%,rapid response was called,IV NS bolus infusing,Albumin administered as ordered,patient seen at present by ICU doctor
[2023-06-02 17:04] LABS: ABG Base Excess -10.7 mmol/L; ABG HCO3 14 mmol/L (22-26); ABG pCO2 28 mmHg (32-45); ABG pO2 59 mmHg (83-108)
--- NOTE | 2023-06-02 17:25 | P.CONCC_ITS ---
History of Present Illness Data of Consult Service Date: 06/02/23 Primary Care Provider: Kat Nevarez MD HPI Reason for consult: Hypotension and hypoxia History is limited as patient is sick and unable to talk. And there is no family members bedside. Claudette Stapleton is a 62-year-old lady with past medical history of hypertension, diabetes, neuropathy, history of pulmonary embolism in the past anticoagulation discontinued by PCP in March 2023, she had severe claudication of her lower extremities due to thoracic radiculopathy and spondylolisthesis of lumbar spine. She was admitted to the hospital for L3-L4 lumbar fusion which went uneventful on 05/31/2023. Patient did okay yesterday, complaining of severe abdominal pain since this morning, episodes of hypotension overnight that was treated with IV fluids. She also developed a new onset JOSE MANUEL with creatinine increasing up to 2.6, with metabolic acidosis bicarb down to 15. She was also hypoxic due to very poor respiratory efforts possibly due to severe abdominal pain. She underwent CT of the abdomen which showed pneumoperitoneum versus possibly secondary to surgery. Medical ICU is consulted for management of altered sensorium, JOSE MANUEL, metabolic acidosis, hypotension and hypoxia. Review of Systems 2 Review of Systems: Unable to obtain as patient is obtunded [facility] Past Medical History Medical History Arthritis GERD (gastroesophageal reflux disease) Depression Polysubstance abuse Osteoarthritis Sleep apnea Elevated cholesterol Bipolar 1 disorder RLS (restless legs syndrome) Asthma HTN (hypertension) Pulmonary embolism Peripheral neuropathy Diabetes Family History Pertinent family history: Unable to obtain as patient is obtunded Surgical History Surgical History H/O colonoscopy History of total right knee replacement Hx of tonsillectomy Hx of tubal ligation Hx of hysterectomy History of sleeve gastrectomy Social History Social History Household Members: Spouse Housing: House Are you a primary daycare director to a significant other at home: No Do you presently have visiting nurse or other home services: No Patient Tobacco Use Status: Never used Tobacco service: No Meds Allergies Allergy/AdvReac Type Severity Reaction Status Date / Time cephalexin [From Keflex] Allergy Intermediate Swelling Verified 04/28/23 11:05 glipizide Allergy Intermediate Rash Verified 04/28/23 11:05 metformin Allergy Intermediate Itching Verified 04/28/23 11:05 morphine Allergy Intermediate Nausea and Verified 04/29/23 12:35 Vomiting/ineffective ropinirole [From Requip] Allergy Intermediate Nausea and Verified 04/28/23 11:05 Vomiting doxycycline Allergy Hives Verified 05/31/23 09:14 CLARITZA Inhibitors AdvReac Intermediate Cough Verified 04/28/23 11:05 Active Medications: Current Medications Albuterol Sulfate (Albuterol Sulfate (0.083%) 2.5 Mg/3 Ml Vial.Neb) 2.5 mg INHALE ONCE PRN PRN Reason: Shortness of Breath/Wheezing Albuterol Sulfate (Albuterol Sulfate 90 Mcg 8 Gm Inhaler) 2 puff INHALE Q6H PRN PRN Reason: Shortness Of Breath Albuterol/Ipratropium (Albuterol/Iprat 2.5/0.5mg 3 Ml Ampul.Neb) 3 ml INHALE RQ4H WHILE AWAKE [facility] Last Admin: 06/02/23 16:11 Dose: Not Given Clonazepam (Clonazepam 1 Mg Tablet) 1 mg PO TID [facility] Last Admin: 06/02/23 14:06 Dose: Not Given Docusate Sodium (Docusate Sodium 100 Mg Capsule) 100 mg PO BID [facility] Last Admin: 06/02/23 11:04 Dose: 100 mg Fluticasone/Vilanterol (Fluticasone/Vilanterol 200/25 Blst.W.Dev) 1 puff INHALE RDAILY [facility] Last Admin: 06/02/23 08:43 Dose: 1 puff Furosemide (Furosemide 20 Mg Tablet) 20 mg PO DAILY [facility]; Protocol Last Admin: 06/02/23 11:05 Dose: Not Given Gabapentin (Gabapentin 400 Mg Capsule) 800 mg PO BID [facility] Last Admin: 06/02/23 11:03 Dose: 800 mg Glucose (Glucose Gel 15 Gm Gel..Gram.) 15 gm PO Q15M PRN; Protocol PRN Reason: per Hypoglycemia Standing Ord. Hydromorphone HCl (Hydromorphone Hcl 1 Mg/Ml Syringe) 1 mg IVPUSH Q3H PRN; Protocol PRN Reason: Pain, Severe (Pain Scale 7-10) Last Admin: 06/02/23 11:33 Dose: 1 mg Acetaminophen (Ofirmev) 1,000 mg in 100 mls @ 400 mls/hr IV Q6H [facility] Last Infusion: 06/02/23 13:11 Dose: Infused Dextrose (D10) 250 mls @ 750 mls/hr IV Q15M PRN; Protocol PRN Reason: per Hypoglycemia Standing Ord. Levofloxacin (Levaquin) 750 mg in 150 mls @ 100 mls/hr IV Q24H [facility] Last Infusion: 06/02/23 15:37 Dose: Infused Albumin Human (Kedbumin 25 %) 100 mls @ 100 mls/hr IV ONCE ONE Stop: 06/02/23 17:47 Insulin Human Lispro (Insulin Lispro 100 Unit/Ml 3 Ml Vial) 0 unit SUBCUT QIDACHS [facility]; Protocol Last Admin: 06/02/23 16:13 Dose: Not Given Lactulose (Lactulose 20 Gm/30 Ml Solution) 10 gm PO DAILY [facility] Last Admin: 06/02/23 11:04 Dose: 10 gm Metoprolol Tartrate (Metoprolol Tartrate 25 Mg Tablet) 25 mg PO DAILY [facility]; Protocol Last Admin: 06/02/23 11:05 Dose: Not Given Non-Formulary Medication (Bupropion Hcl) 100 mg PO QAM [facility] Omeprazole (Omeprazole 20 Mg Capsule.Dr) 20 mg PO DAILY@0630 [facility] Last Admin: 06/02/23 06:18 Dose: Not Given Ondansetron HCl (Ondansetron Hcl 4 Mg/2 Ml Vial) 4 mg IVPUSH Q6H PRN PRN Reason: Nausea and Vomiting Oxycodone HCl (Oxycodone Hcl Immed Release 5 Mg Tablet) 5 mg PO Q4H PRN PRN Reason: Pain, Moderate(Pain Scale 4-6) Oxycodone HCl (Oxycodone Hcl Immed Release 5 Mg Tablet) 10 mg PO Q4H PRN PRN Reason: Pain, Severe (Pain Scale 7-10) Last Admin: 06/01/23 17:35 Dose: 10 mg Pharmacy Consult (Consult Rx Vancomycin Dosing) 1 each MISCELLANE DAILY PRN PRN Reason: Consult order Polyethylene Glycol (Polyethylene Glycol 3350 17 Gm Powd.Pack) 17 gm PO DAILY PRN PRN Reason: constipation Pramipexole Dihydrochloride (Pramipexole Di-Hcl 0.25 Mg Tablet) 0.25 mg PO DAILY [facility] Last Admin: 06/02/23 11:04 Dose: 0.25 mg Pregabalin (Pregabalin 75 Mg Capsule) 75 mg PO BID [facility] Senna (Sennosides 8.6 Mg Tablet) 8.6 mg PO BEDTIME [facility] Last Admin: 06/01/23 20:54 Dose: 8.6 mg Topiramate (Topiramate 100 Mg Tablet) 100 mg PO BID [facility] Last Admin: 06/02/23 11:04 Dose: 100 mg Trazodone HCl (Trazodone Hcl 100 Mg Tablet) 100 mg PO BEDTIME [facility] Vortioxetine (Vortioxetine Hydrobromide 20 Mg Tablet) 20 mg PO DAILY [facility] Last Admin: 06/02/23 11:04 Dose: 20 mg Home Medications ?Medication ?Instructions ?Recorded ?Confirmed ?Last Taken ?Type albuterol sulfate 90 mcg/actuation 2 puff inhalation Q6H PRN 04/28/23 04/29/23 Unknown History aerosol inhaler (Ventolin HFA) Shortness Of Breath aspirin 81 mg tablet,delayed 81 mg PO DAILY 04/28/23 04/28/23 04/20/23 History release budesonide-formoterol HFA 160 2 puff inhalation BID 04/28/23 04/29/23 05/31/23 07:30 History mcg-4.5 mcg/actuation aerosol inhaler (Symbicort) bupropion HCl 100 mg tablet,12 hr 100 mg PO QAM 04/28/23 04/28/23 05/30/23 History sustained-release [id number] 1 tab PO Q6H PRN pain 04/28/23 04/28/23 Unknown History 50 mg-325 mg-40 mg tablet clonazepam 1 mg tablet 1 mg PO TID 04/28/23 04/28/23 05/30/23 History furosemide 40 mg tablet 20 mg PO DAILY 04/28/23 04/28/23 05/30/23 History gabapentin 800 mg tablet 800 mg PO BID 04/28/23 04/28/23 05/31/23 07:30 History hydroxyzine HCl 10 mg tablet 10 mg PO TID PRN Anxiety 04/28/23 04/28/23 Unknown History insulin aspart U-100 100 unit/mL 4 - 30 unit subcut TID 04/28/23 04/28/23 05/30/23 History (3 mL) subcutaneous pen lorazepam 1 mg tablet 1 mg PO TID 04/28/23 04/28/23 05/31/23 07:30 History melatonin 10 mg-lemon balm leaf 1 tab PO BEDTIME 04/28/23 04/28/23 Unknown History extract 1 mg tablet metoprolol tartrate 25 mg tablet 25 mg PO DAILY 04/28/23 04/28/23 05/31/23 07:30 History potassium chloride 10 mEq 10 meq PO DAILY 04/28/23 05/30/23 History tablet,extended release pramipexole 0.25 mg tablet 0.25 mg PO DAILY 04/28/23 04/28/23 05/30/23 History pregabalin 150 mg capsule 150 mg PO BID 04/28/23 04/28/23 Unknown History semaglutide 0.25 mg or 0.5 mg (2 0.5 mg subcut QWEEK 04/28/23 04/28/23 05/20/23 History mg/3 mL) subcutaneous pen injector (Ozempic) topiramate 100 mg tablet 100 mg PO BID 04/28/23 04/28/23 05/30/23 History trazodone 100 mg tablet 300 mg PO BEDTIME 04/28/23 04/28/23 05/30/23 History vortioxetine 20 mg tablet 20 mg PO DAILY 04/28/23 04/28/23 05/30/23 History (Trintellix) lactulose 10 gram/15 mL oral 15 ml PO QAM 04/29/23 04/29/23 05/30/23 History solution pantoprazole 40 mg tablet,delayed 40 mg PO DAILY 04/29/23 04/29/23 05/31/23 07:30 History release polyethylene glycol 3350 17 gram 17 g PO DAILY PRN constipation 04/29/23 04/29/23 Unknown History oral powder packet sennosides 8.6 mg tablet (senna) 8.6 mg PO BEDTIME 04/29/23 04/29/23 Unknown History Physical Exam 2 Vital Signs: Vital Signs: Last Vital Signs Temp 98 F 06/02/23 06:56 Pulse 86 06/02/23 17:04 Resp 28 H 06/02/23 16:11 BP 91/50 L 06/02/23 17:04 Pulse Ox 91 L 06/02/23 16:11 O2 Del Method Nasal Cannula 06/02/23 16:11 O2 Flow Rate 4 06/02/23 16:11 BMI result Body Mass Index 34.7 HEENT: Head: Yes normal to inspection and Yes normocephalic Eyes: General: appearance normal, both eyes and all related structures P eriorbital: periorbital findings normal Eyelids: Yes eyelids normal C onjunctivae: conjunctivae normal Resp: Other: Decreased breath sounds in bilateral lung bases, air entry equal on bilateral Cardio: Other: Normal S1-S2 heard, no murmur GI: Other: Abdominal distension pleasant, severe abdominal tenderness present mostly in the epigastrium but in all quadrants Skin: General skin exam: no rashes or lesions noted and turgor normal Neuro: Other: Patient is obtunded, follows some commands but not all, orientation questionable Results Labs 06/02/23 09:15 06/02/23 13:41 Labs: Short CBC 06/02/23 Range/Units 09:15 WBC 7.6 (4.8-10.8) X10*3/uL Hgb 13.6 (12.0-16.0) g/dl Hct 41.2 (37.0-47.0) % Plt Count 169 (160-400) X10*3/uL BMP 06/02/23 13:41 Sodium 138 Potassium 3.6 Chloride 113 H Carbon Dioxide 15 L BUN 19 H Creatinine 2.57 H Calcium 7.8 L D Liver Function 06/02/23 Range/Units 13:41 Total Bilirubin 1.0 (0.0-1.0) mg/dL AST 41 H (5-31) U/L ALT 23 (0-31) U/L Alkaline Phosphatase 46 (39-117) U/L Albumin 2.7 L (3.5-5.0) g/dL ECG Attestation: I personally reviewed and interpreted this ECG as follows: ECG interpretation date: 06/02/23 Assessment and Plan (1) Acute encephalopathy: Status: Acute (2) Acute kidney injury: Status: Acute (3) Shock: Status: Acute (4) Acute hypoxic respiratory failure: Status: Acute Plan Claudette Stapleton is a 62-year-old lady with past medical history of hypertension, diabetes, neuropathy, history of pulmonary embolism in the past anticoagulation discontinued by PCP in March 2023, she had severe claudication of her lower extremities due to thoracic radiculopathy and spondylolisthesis of lumbar spine. She was admitted to the hospital for L3-L4 lumbar fusion which went uneventful on 05/31/2023. Had episodes of hypotension overnight treated with IV fluids, new onset JOSE MANUEL with creatinine increasing up to 2.6, with metabolic acidosis bicarb down to 15. She was also hypoxic due to very poor respiratory efforts possibly due to severe abdominal pain. She underwent CT of the abdomen which showed pneumoperitoneum versus possibly secondary to surgery. Medical ICU is consulted for management of altered sensorium, JOSE MANUEL, metabolic acidosis, hypotension and hypoxia Neuro: Acute encephalopathy: Secondary to metabolic encephalopathy from ongoing multiorgan failure, however can not rule out gabapentin toxicity in the setting of JOSE MANUEL. Can do fentanyl pushes as needed for pain ICU delirium precautions Cardio: Shock: Multifactorial possibly from multiple pain medications, gabapentin and pregabalin in the setting of JOSE MANUEL, however can not rule out intra-abdominal source of infection Fluid boluses to keep the map above 65mmhg, if remains low we will start her on vasopressor support with Levophed Bedside echo showed normal LV function slightly dilated RV, IVC 1.8 cm noncollapsible. She may not respond for more volume resuscitation instead might become more hypoxic. If needed we will resuscitate with albumin. History of Pulmonary embolism: Has a history of pulmonary embolism, anticoagulation stopped By PCP in March 2023 Has elevated D-dimer, right heart dilation, dilated IVC. But bedside Doppler of the lower extremity did not show any occlusive clots Respiratory: Acute hypoxemic respiratory failure due to poor respiratory efforts from severe abdominal pain. Bedside ultrasound of the lungs showed barely moving base of lungs, atelectasis seen. No B-lines. We will up titrate oxygen to keep the sats above 90, high-risk for need for intubation. GI: Has pneumoperitoneum on the CT scan which can be secondary to recent surgery. But given her severe abdominal tenderness we will rule out perforation with oral contrast CT abdomen after placing an NG tube as she is high risk for aspiration. Will start on empiric Zosyn to cover for possible abdominal source of infection Acute kidney injury: Baseline creatinine around 0.8, increased to 2.6 today Possibly due to ATN as a component of multiorgan failure including multiple episodes of hypotension No indication for renal replacement therapy Closely monitor I's and O's Severe metabolic acidosis: Secondary to severe JOSE MANUEL We will start the patient on dextrose and 3 amps of sodium bicarbonate Infectious disease: We will send pancultures Empirically start Zosyn for possible intra-abdominal source of infection Endocrine: Blood sugars are under control Sliding scale insulin as needed Prophylaxis: Heparin, pantoprazole Bedside ultrasound heart: Normal LV systolic function, dilated RV, dilated IVC 1.8 cm noncollapsible Bedside ultrasound lungs: Very poor movement of the lung bases, atelectatic lung bases bilaterally. No B lines seen anteriorly Bedside Doppler of lower extremities: Did not see any occlusive venous clots in bilateral femoral and popliteal veins Total time managing care of this patient today: 60 minutes.
[2023-06-02] MEDS: Enoxaparin Sodium 100 MG/ML SYRINGE 90 MG SUBCUT (17:40)
[2023-06-02] MEDS: bisacodyL 10 MG SUPP.RECT PR (17:42)
--- NOTE | 2023-06-02 17:50 | PM.CCPN ---
Subjective Subjective Date of Service: 06/03/23 Critical Care Time (minutes): 60 Physical Exam Vital Signs: Vital Signs: Last Vital Signs Temp 98 F 06/02/23 06:56 Pulse 86 06/02/23 17:04 Resp 28 H 06/02/23 16:11 BP 91/50 L 06/02/23 17:04 Pulse Ox 91 L 06/02/23 16:11 O2 Del Method Nasal Cannula 06/02/23 16:11 O2 Flow Rate 4 06/02/23 16:11 BMI result Body Mass Index 34.7 Objective Data Labs 06/03/23 06:07 06/03/23 06:07 Labs: Laboratory Results - last 24 hr 06/01/23 06/02/23 06/02/23 20:35 05:34 07:00 WBC RBC Hgb Hct MCV MCH MCHC RDW Plt Count MPV Immature Gran % (Auto) Neut % (Auto) Lymph % (Auto) [place] % (Auto) Eos % (Auto) Baso % (Auto) Lymph # (Auto) [place] # (Auto) Eos # (Auto) Baso # (Auto) Abs Immat Gran (auto) Absolute Neuts (auto) Absolute Nucleated RBC Nucleated RBC % (auto) Neutrophils % (Manual) Band Neutrophils % Lymphocytes % (Manual) Monocytes % (Manual) Metamyelocytes % Abs Neuts (Manual) Lymphocytes # (Manual) Monocytes # (Manual) Metamyelocytes # Toxic Vacuolation Platelet Estimate Plt Morphology Comment RBC Morphology D-Dimer High Sensitivty O2 Saturation ABG pH at Pt Temp ABG pCO2 at Pt Temp ABG pO2 at Pt Temp ABG HCO3 ABG Base Excess (Actual) Sodium Potassium Chloride Carbon Dioxide Anion Gap BUN Creatinine Estim Creat Clear Calc Estimated GFR POC Glucose 93 143 H 136 H Random Glucose Calcium Total Bilirubin AST ALT Alkaline Phosphatase Troponin I High Sens B-Natriuretic Peptide Total Protein Albumin 06/02/23 06/02/23 06/02/23 09:15 10:54 13:41 WBC 7.6 RBC 4.56 Hgb 13.6 Hct 41.2 MCV 90.4 MCH 29.8 MCHC 33.0 RDW 14.1 Plt Count 169 MPV 12.9 H Immature Gran % (Auto) Cancelled Neut % (Auto) Cancelled Lymph % (Auto) Cancelled [place] % (Auto) Cancelled Eos % (Auto) Cancelled Baso % (Auto) Cancelled Lymph # (Auto) Cancelled [place] # (Auto) Cancelled Eos # (Auto) Cancelled Baso # (Auto) Cancelled Abs Immat Gran (auto) Cancelled Absolute Neuts (auto) Cancelled Absolute Nucleated RBC 0.000 Nucleated RBC % (auto) 0.0 Neutrophils % (Manual) 77 H Band Neutrophils % 13 H Lymphocytes % (Manual) 5 L Monocytes % (Manual) 3 Metamyelocytes % 2 Abs Neuts (Manual) 6.8 Lymphocytes # (Manual) 0.4 L Monocytes # (Manual) 0.2 Metamyelocytes # 0.2 Toxic Vacuolation PRESENT Platelet Estimate NORMAL Plt Morphology Comment NORMAL RBC Morphology NORMAL D-Dimer High Sensitivty 2351 O2 Saturation ABG pH at Pt Temp ABG pCO2 at Pt Temp ABG pO2 at Pt Temp ABG HCO3 ABG Base Excess (Actual) Sodium 138 Potassium 3.6 Chloride 113 H Carbon Dioxide 15 L Anion Gap 14 BUN 19 H Creatinine 2.57 H Estim Creat Clear Calc 24.8 Estimated GFR 19 POC Glucose 148 H Random Glucose 142 H Calcium 7.8 L D Total Bilirubin 1.0 AST 41 H ALT 23 Alkaline Phosphatase 46 Troponin I High Sens 3.2 B-Natriuretic Peptide 40 Total Protein 4.8 L Albumin 2.7 L 06/02/23 06/02/23 16:04 16:57 WBC RBC Hgb Hct MCV MCH MCHC RDW Plt Count MPV Immature Gran % (Auto) Neut % (Auto) Lymph % (Auto) [place] % (Auto) Eos % (Auto) Baso % (Auto) Lymph # (Auto) [place] # (Auto) Eos # (Auto) Baso # (Auto) Abs Immat Gran (auto) Absolute Neuts (auto) Absolute Nucleated RBC Nucleated RBC % (auto) Neutrophils % (Manual) Band Neutrophils % Lymphocytes % (Manual) Monocytes % (Manual) Metamyelocytes % Abs Neuts (Manual) Lymphocytes # (Manual) Monocytes # (Manual) Metamyelocytes # Toxic Vacuolation Platelet Estimate Plt Morphology Comment RBC Morphology D-Dimer High Sensitivty O2 Saturation 90.0 ABG pH at Pt Temp 7.30 L ABG pCO2 at Pt Temp 28 L ABG pO2 at Pt Temp 59 L ABG HCO3 14 L ABG Base Excess (Actual) -10.7 Sodium Potassium Chloride Carbon Dioxide Anion Gap BUN Creatinine Estim Creat Clear Calc Estimated GFR POC Glucose 150 H Random Glucose Calcium Total Bilirubin AST ALT Alkaline Phosphatase Troponin I High Sens B-Natriuretic Peptide Total Protein Albumin Quality Stroke Does the patient have a stroke diagnosis?: No VTE Prior VTE?: No VTE Risk Level:: Surgical - low VTE Device Contraindication: N/A - Device Ordered VTE Drug Contraindication: Treatment Not Indicated
--- NOTE | 2023-06-02 17:57 | PC.NURSE ---
Patient was transferred to [id number],report given to RN Marisol
[2023-06-02] MEDS: Pantoprazole Sodium 40 MG/10 ML VIAL IVPUSH (18:31)
[2023-06-02] MEDS: Piperacillin Sodium/Tazobactam 3.375 GM in 0.9 % Sodium Chloride 50 ML IV (18:31)
[2023-06-02 18:46] LABS: ABG Refer to POC result
--- NOTE | 2023-06-02 19:04 | PM.CNGS ---
History of Present Illness Consult details Consult date: 06/02/23 Narrative: 62-year-old female patient with multiple medical problems including asthma, type 2 diabetes, neuropathy status post L3-4 discectomy, arthrodesis and implantation cage through an anterolateral, retroperitoneal approach found to have hypoxia, abdominal distention and tenderness this morning. Patient reports increased difficulty breathing and subsequently underwent CT abdomen and pelvis this afternoon. This does reveal intraperitoneal air below the diaphragm. She has awaiting a CT abdomen and pelvis with oral contrast. Asked to evaluate the patient by the hospitalist team. Review of Systems Review of Systems: Yes Unobtainable due to mental condition PMFSH Past Medical History Medical History Arthritis GERD (gastroesophageal reflux disease) Depression Polysubstance abuse Osteoarthritis Sleep apnea Elevated cholesterol Bipolar 1 disorder RLS (restless legs syndrome) Asthma HTN (hypertension) Pulmonary embolism Peripheral neuropathy Diabetes Surgical History Surgical History H/O colonoscopy History of total right knee replacement Hx of tonsillectomy Hx of tubal ligation Hx of hysterectomy History of sleeve gastrectomy Social History Social History Household Members: Spouse Housing: House Are you a primary child care education coordinator to a significant other at home: No Do you presently have visiting nurse or other home services: No Patient Tobacco Use Status: Never used Tobacco service: No Meds Allergies Allergy/AdvReac Type Severity Reaction Status Date / Time cephalexin [From Keflex] Allergy Intermediate Swelling Verified 04/28/23 11:05 glipizide Allergy Intermediate Rash Verified 04/28/23 11:05 metformin Allergy Intermediate Itching Verified 04/28/23 11:05 morphine Allergy Intermediate Nausea and Verified 04/29/23 12:35 Vomiting/ineffective ropinirole [From Requip] Allergy Intermediate Nausea and Verified 04/28/23 11:05 Vomiting doxycycline Allergy Hives Verified 05/31/23 09:14 CLARITZA Inhibitors AdvReac Intermediate Cough Verified 04/28/23 11:05 Active Medications: Current Medications Albuterol Sulfate (Albuterol Sulfate (0.083%) 2.5 Mg/3 Ml Vial.Neb) 2.5 mg INHALE ONCE PRN PRN Reason: Shortness of Breath/Wheezing Albuterol Sulfate (Albuterol Sulfate 90 Mcg 8 Gm Inhaler) 2 puff INHALE Q6H PRN PRN Reason: Shortness Of Breath Albuterol/Ipratropium (Albuterol/Iprat 2.5/0.5mg 3 Ml Ampul.Neb) 3 ml INHALE RQ4H WHILE AWAKE COUNTS INCLUDE 234 BEDS AT THE [facility] Last Admin: 06/02/23 16:11 Dose: Not Given Clonazepam (Clonazepam 1 Mg Tablet) 1 mg PO TID COUNTS INCLUDE 234 BEDS AT THE [facility] Last Admin: 06/02/23 14:06 Dose: Not Given Docusate Sodium (Docusate Sodium 100 Mg Capsule) 100 mg PO BID COUNTS INCLUDE 234 BEDS AT THE [facility] Last Admin: 06/02/23 11:04 Dose: 100 mg Fluticasone/Vilanterol (Fluticasone/Vilanterol 200/25 Blst.W.Dev) 1 puff INHALE RDAILY COUNTS INCLUDE 234 BEDS AT THE [facility] Last Admin: 06/02/23 08:43 Dose: 1 puff Furosemide (Furosemide 20 Mg Tablet) 20 mg PO DAILY COUNTS INCLUDE 234 BEDS AT THE [facility]; Protocol Last Admin: 06/02/23 11:05 Dose: Not Given Gabapentin (Gabapentin 400 Mg Capsule) 800 mg PO BID COUNTS INCLUDE 234 BEDS AT THE [facility] Last Admin: 06/02/23 11:03 Dose: 800 mg Glucose (Glucose Gel 15 Gm Gel..Gram.) 15 gm PO Q15M PRN; Protocol PRN Reason: per Hypoglycemia Standing Ord. Heparin Sodium (Porcine) (Heparin Sodium,Porcine 5,000 Unit/Ml Vial) 5,000 unit SUBCUT Q8H COUNTS INCLUDE 234 BEDS AT THE [facility] Acetaminophen (Ofirmev) 1,000 mg in 100 mls @ 400 mls/hr IV Q6H COUNTS INCLUDE 234 BEDS AT THE [facility] Last Infusion: 06/02/23 13:11 Dose: Infused Dextrose (D10) 250 mls @ 750 mls/hr IV Q15M PRN; Protocol PRN Reason: per Hypoglycemia Standing Ord. Levofloxacin (Levaquin) 750 mg in 150 mls @ 100 mls/hr IV Q24H COUNTS INCLUDE 234 BEDS AT THE [facility] Last Infusion: 06/02/23 15:37 Dose: Infused Piperacillin Sod/Tazobactam (Sod 3.375 gm/ Sodium Chloride) 50 mls @ 100 mls/hr IV Q6H COUNTS INCLUDE 234 BEDS AT THE [facility] Last Admin: 06/02/23 18:31 Dose: 100 mls/hr Sodium Bicarbonate 150 meq/ (Dextrose) 1,000 mls @ 100 mls/hr IV .Q10H COUNTS INCLUDE 234 BEDS AT THE [facility] Insulin Human Lispro (Insulin Lispro 100 Unit/Ml 3 Ml Vial) 0 unit SUBCUT QIDACHS COUNTS INCLUDE 234 BEDS AT THE [facility]; Protocol Last Admin: 06/02/23 16:13 Dose: Not Given Lactulose (Lactulose 20 Gm/30 Ml Solution) 10 gm PO DAILY COUNTS INCLUDE 234 BEDS AT THE [facility] Last Admin: 06/02/23 11:04 Dose: 10 gm Non-Formulary Medication (Bupropion Hcl) 100 mg PO QAM COUNTS INCLUDE 234 BEDS AT THE [facility] Omeprazole (Omeprazole 20 Mg Capsule.Dr) 20 mg PO DAILY@0630 COUNTS INCLUDE 234 BEDS AT THE [facility] Last Admin: 06/02/23 06:18 Dose: Not Given Ondansetron HCl (Ondansetron Hcl 4 Mg/2 Ml Vial) 4 mg IVPUSH Q6H PRN PRN Reason: Nausea and Vomiting Pantoprazole Sodium (Pantoprazole Sodium 40 Mg/10 Ml Vial) 40 mg IVPUSH BID@0630,1630 COUNTS INCLUDE 234 BEDS AT THE [facility] Last Admin: 06/02/23 18:31 Dose: 40 mg Pharmacy Consult (Consult Rx Vancomycin Dosing) 1 each MISCELLANE DAILY PRN PRN Reason: Consult order Polyethylene Glycol (Polyethylene Glycol 3350 17 Gm Powd.Pack) 17 gm PO DAILY PRN PRN Reason: constipation Pramipexole Dihydrochloride (Pramipexole Di-Hcl 0.25 Mg Tablet) 0.25 mg PO DAILY COUNTS INCLUDE 234 BEDS AT THE [facility] Last Admin: 06/02/23 11:04 Dose: 0.25 mg Senna (Sennosides 8.6 Mg Tablet) 8.6 mg PO BEDTIME COUNTS INCLUDE 234 BEDS AT THE [facility] Last Admin: 06/01/23 20:54 Dose: 8.6 mg Topiramate (Topiramate 100 Mg Tablet) 100 mg PO BID COUNTS INCLUDE 234 BEDS AT THE [facility] Last Admin: 06/02/23 11:04 Dose: 100 mg Vortioxetine (Vortioxetine Hydrobromide 20 Mg Tablet) 20 mg PO DAILY COUNTS INCLUDE 234 BEDS AT THE [facility] Last Admin: 06/02/23 11:04 Dose: 20 mg Home Medications ?Medication ?Instructions ?Recorded ?Confirmed ?Last Taken ?Type albuterol sulfate 90 mcg/actuation 2 puff inhalation Q6H PRN 04/28/23 04/29/23 Unknown History aerosol inhaler (Ventolin HFA) Shortness Of Breath aspirin 81 mg tablet,delayed 81 mg PO DAILY 04/28/23 04/28/23 04/20/23 History release budesonide-formoterol HFA 160 2 puff inhalation BID 04/28/23 04/29/23 05/31/23 07:30 History mcg-4.5 mcg/actuation aerosol inhaler (Symbicort) bupropion HCl 100 mg tablet,12 hr 100 mg PO QAM 04/28/23 04/28/23 05/30/23 History sustained-release [id number] 1 tab PO Q6H PRN pain 04/28/23 04/28/23 Unknown History 50 mg-325 mg-40 mg tablet clonazepam 1 mg tablet 1 mg PO TID 04/28/23 04/28/23 05/30/23 History furosemide 40 mg tablet 20 mg PO DAILY 04/28/23 04/28/23 05/30/23 History gabapentin 800 mg tablet 800 mg PO BID 04/28/23 04/28/23 05/31/23 07:30 History hydroxyzine HCl 10 mg tablet 10 mg PO TID PRN Anxiety 04/28/23 04/28/23 Unknown History insulin aspart U-100 100 unit/mL 4 - 30 unit subcut TID 04/28/23 04/28/23 05/30/23 History (3 mL) subcutaneous pen lorazepam 1 mg tablet 1 mg PO TID 04/28/23 04/28/23 05/31/23 07:30 History melatonin 10 mg-lemon balm leaf 1 tab PO BEDTIME 04/28/23 04/28/23 Unknown History extract 1 mg tablet metoprolol tartrate 25 mg tablet 25 mg PO DAILY 04/28/23 04/28/23 05/31/23 07:30 History potassium chloride 10 mEq 10 meq PO DAILY 04/28/23 05/30/23 History tablet,extended release pramipexole 0.25 mg tablet 0.25 mg PO DAILY 04/28/23 04/28/23 05/30/23 History pregabalin 150 mg capsule 150 mg PO BID 04/28/23 04/28/23 Unknown History semaglutide 0.25 mg or 0.5 mg (2 0.5 mg subcut QWEEK 04/28/23 04/28/23 05/20/23 History mg/3 mL) subcutaneous pen injector (Ozempic) topiramate 100 mg tablet 100 mg PO BID 04/28/23 04/28/23 05/30/23 History trazodone 100 mg tablet 300 mg PO BEDTIME 04/28/23 04/28/23 05/30/23 History vortioxetine 20 mg tablet 20 mg PO DAILY 04/28/23 04/28/23 05/30/23 History (Trintellix) lactulose 10 gram/15 mL oral 15 ml PO QAM 04/29/23 04/29/23 05/30/23 History solution pantoprazole 40 mg tablet,delayed 40 mg PO DAILY 04/29/23 04/29/23 05/31/23 07:30 History release polyethylene glycol 3350 17 gram 17 g PO DAILY PRN constipation 04/29/23 04/29/23 Unknown History oral powder packet sennosides 8.6 mg tablet (senna) 8.6 mg PO BEDTIME 04/29/23 04/29/23 Unknown History Physical Exam Vital Signs: Vital Signs: Last Vital Signs Temp 97.5 F 06/02/23 16:00 Pulse 86 06/02/23 17:04 Resp 28 H 06/02/23 16:11 BP 91/50 L 06/02/23 17:04 Pulse Ox 91 L 06/02/23 16:11 O2 Del Method Nasal Cannula 06/02/23 16:11 O2 Flow Rate 4 06/02/23 16:11 BMI result Body Mass Index 34.7 Const: General: acute distress, ill appearing and lethargic Nutritional Appearance: overweight Orientation/consciousness: lethargic HEENT: Other: NG tube in place Head: Yes normocephalic and Yes atraumatic Resp: Other: Shallow respirations, tachypneic GI: Inspection: Yes distended and Yes incision (Left flank, clean and intact without subcu emphysema) Palpation (GI): Tenderness to palpation present (GI) in the LLQ, in the RLQ, in the LUQ, in the RUQ and with rebound tenderness Percussion: Yes normal to percussion Auscultation: Absent bowel sounds Rectal Exam - Female: deferred Skin: General skin exam: no rashes or lesions noted Results Labs 06/02/23 09:15 06/02/23 13:41 Labs: Abnormal lab results 06/02/23 06/02/23 06/02/23 Range/Units 05:34 07:00 09:15 MPV 12.9 H (9.4-12.3) fL Neutrophils % (Manual) 77 H (45-73) % Band Neutrophils % 13 H (3-5) % Lymphocytes % (Manual) 5 L (20-40) % Lymphocytes # (Manual) 0.4 L (1.2-4.9) X10*3/uL ABG pH at Pt Temp (7.35-7.45) ABG pCO2 at Pt Temp (32-45) mmHg ABG pO2 at Pt Temp (83-108) mmHg ABG HCO3 (22-26) mmol/L Chloride (96-108) mmol/L Carbon Dioxide (22-29) mmol/L BUN (9-16) mg/dL Creatinine (0.5-1.4) mg/dL POC Glucose 143 H 136 H (60-115) mg/dL Random Glucose (60-115) mg/dL Calcium (8.4-10.2) mg/dL AST (5-31) U/L Total Protein (6.5-8.0) g/dL Albumin (3.5-5.0) g/dL 06/02/23 06/02/23 06/02/23 Range/Units 10:54 13:41 16:04 MPV (9.4-12.3) fL Neutrophils % (Manual) (45-73) % Band Neutrophils % (3-5) % Lymphocytes % (Manual) (20-40) % Lymphocytes # (Manual) (1.2-4.9) X10*3/uL ABG pH at Pt Temp (7.35-7.45) ABG pCO2 at Pt Temp (32-45) mmHg ABG pO2 at Pt Temp (83-108) mmHg ABG HCO3 (22-26) mmol/L Chloride 113 H (96-108) mmol/L Carbon Dioxide 15 L (22-29) mmol/L BUN 19 H (9-16) mg/dL Creatinine 2.57 H (0.5-1.4) mg/dL POC Glucose 148 H 150 H (60-115) mg/dL Random Glucose 142 H (60-115) mg/dL Calcium 7.8 L D (8.4-10.2) mg/dL AST 41 H (5-31) U/L Total Protein 4.8 L (6.5-8.0) g/dL Albumin 2.7 L (3.5-5.0) g/dL 06/02/23 Range/Units 16:57 MPV (9.4-12.3) fL Neutrophils % (Manual) (45-73) % Band Neutrophils % (3-5) % Lymphocytes % (Manual) (20-40) % Lymphocytes # (Manual) (1.2-4.9) X10*3/uL ABG pH at Pt Temp 7.30 L (7.35-7.45) ABG pCO2 at Pt Temp 28 L (32-45) mmHg ABG pO2 at Pt Temp 59 L (83-108) mmHg ABG HCO3 14 L (22-26) mmol/L Chloride (96-108) mmol/L Carbon Dioxide (22-29) mmol/L BUN (9-16) mg/dL Creatinine (0.5-1.4) mg/dL POC Glucose (60-115) mg/dL Random Glucose (60-115) mg/dL Calcium (8.4-10.2) mg/dL AST (5-31) U/L Total Protein (6.5-8.0) g/dL Albumin (3.5-5.0) g/dL Short CBC 06/02/23 Range/Units 09:15 WBC 7.6 (4.8-10.8) X10*3/uL Hgb 13.6 (12.0-16.0) g/dl Hct 41.2 (37.0-47.0) % Plt Count 169 (160-400) X10*3/uL BMP 06/02/23 13:41 Sodium 138 Potassium 3.6 Chloride 113 H Carbon Dioxide 15 L BUN 19 H Creatinine 2.57 H Calcium 7.8 L D Liver Function 06/02/23 Range/Units 13:41 Total Bilirubin 1.0 (0.0-1.0) mg/dL AST 41 H (5-31) U/L ALT 23 (0-31) U/L Alkaline Phosphatase 46 (39-117) U/L Albumin 2.7 L (3.5-5.0) g/dL All other labs normal. Imaging Abdomen CT scan report/results: report reviewed and image reviewed CT scan - pelvis: report reviewed and image reviewed Assessment and Plan (1) Free intraperitoneal air: Status: Acute Plan 62-year-old female patient presenting status post L3-4 discectomy, arthrodesis and implantation cage through an anterolateral, retroperitoneal approach, presenting with increased respiratory distress, hypoxia, abdominal distention abdominal pain found on CT abdomen and pelvis to have evidence of pneumoperitoneum. Discussed with Dr. Cat who feels this is probably results of the retroperitoneal approach. He has requested a CT abdomen and pelvis with oral contrast to evaluate for extravasation. Nasogastric tube has been placed as well. Will await these results. Procedures Date of Service Date of Service: 06/02/23
[2023-06-02] MEDS: Sodium Bicarbonate 8.4% 150 MEQ in Dextrose 5 % 850 ML 100 MEQ IV (19:14)
[2023-06-02 19:47] LABS: Hematocrit 39.3 % (37.0-47.0); Hemoglobin 12.8 g/dl (12.0-16.0); Mean Corpuscular HGB Conc 32.6 g/dl (31.0-35.0); Mean Corpuscular Hemoglobin 29.9 pg (27.0-33.0); Mean Corpuscular Volume 91.8 fL (80.0-98.0); Mean Platelet Volume 12.7 fL (9.4-12.3); PLT CLUMP 1; Red Blood Count 4.28 X10*6/uL (4.20-5.50); Red Cell Distribution Width 14.5 % (11.0-16.0)
[2023-06-02 19:52] LABS: Glucose, Whole Blood 116 mg/dL (60-115)
[2023-06-02 19:58] LABS: PLT ABN DIST 1; WBC ABN SCTR FOR CBC 1
[2023-06-02] MEDS: Sodium Bicarbonate 8.4% 50 MEQ/50 ML SYRINGE IVPUSH ×2 (20:06→20:08)
[2023-06-02 20:07] LABS: Lactic Acid 3.9 mmol/L (0.5-2.0)
[2023-06-02 20:08] LABS: Alanine Aminotransferase 23 U/L (0-31); Albumin Level 3.5 g/dL (3.5-5.0); Alkaline Phosphatase 42 U/L (39-117); Anion Gap 17 (12-20); Aspartate Amino Transferase 45 U/L (5-31); Bilirubin Total 1.4 mg/dL (0.0-1.0); Blood Urea Nitrogen 23 mg/dL (9-16); C Reactive Protein 32.42 mg/dL (< or = 0.50); Calcium 7.9 mg/dL (8.4-10.2); Carbon Dioxide 13 mmol/L (22-29); Chloride 112 mmol/L (96-108); Creatinine Clr Calc Pharmacy 22.4; Estimated Glomerular Filt Rate 17; Glucose Random 132 mg/dL (60-115); Magnesium 1.4 mg/dL (1.6-2.6); Phosphorus 3.1 mg/dL (2.7-4.5); Potassium 3.7 mmol/L (3.3-5.1); Sodium 138 mmol/L (135-145); Total Protein 5.5 g/dL (6.5-8.0)
--- NOTE | 2023-06-02 20:18 | P.PNCC_ITS ---
Critical Care Event Note Summary Date of Service: 06/02/23 <DEBI Phillip - Last Filed: 06/03/23 19:54> Code activated: No <Nabil Dolan MD - Last Filed: 06/03/23 10:51> Narrative: This case had a high probability of a clinically significant, sudden, or life threatening deterioration of this patient's condition which required my full and direct attention, intervention and personal management. <DEBI Phillip - Last Filed: 06/03/23 19:54> Critical Care Time (minutes): 90 <DEBI Phillip - Last Filed: 06/03/23 19:54> Comment: Patient is postop day 2. Status post L3-for oblique lumbar interbody fusion which had been successful and without immediate postop complications.? Patient was seen by internal medicine team as well as ICU team this afternoon for she had episodes of low blood pressure treated with IV fluids, some hypoxia requiring nasal cannula oxygenation.? Patient also has had some altered mental status, all of which resulted in a evaluation of her abdomen which has been distended, tender, a CT of the abdomen pelvis without contrast was done showing pneumoperitoneum, however this could be sequela of the above-mentioned surgical procedure versus a new bowel perforation, however the only way to assess this would be to repeat a CT of the abdomen pelvis with oral contrast.? Patient has been seen by general surgeon Dr. Hernandez and patient awaiting further evaluation on the floor. Patient was seen by me at 19:05, it was clear that the patient appeared to be in significant distress, hypotensive with blood pressure of 90/40, somnolent and not oriented, able to follow some basic commands but unable to answer complex questions, pale, diaphoretic. ?Her abdomen appears to be distended, no bowel sounds, there is clear tenderness to percussion with minor guarding. ?Patient appears to be having Kussmaul respirations.? I am concerned that this patient is having a rapid decline.? I think the patient is better off being in the ICU than on the floor therefore I will arrange for a stat transfer. An NG tube had been attempted by nursing personnel but this was not in the right position and there was no aspiration of any contents, also confirmation by pushing air into the tube did not reveal any air bubbles during my evaluation therefore I replaced this obtaining small amount of food like contents upon expiration with good air bubbles noted, further confirmation will be done was the patient is in the ICU via chest x-ray or KUB. The patient will need intubation; will repeat a full set of labs including lactic acid, repeat blood gas.? I will reach out to the patient's next of kin for consent.? Patient appears to be quite acidotic and bicarb is low, will give her bicarb pushes prior to intubation, she will also likely need a central l ine.? Once all the above is performed, we then can administer all contrast via the NG tube for a final definition of the suspected bowel perforation versus postop normal sequela of her prior lumbar surgery (less likely given the acuity of her abd pain and sig pain out of proportion with guarding and rigidity). Sepsis exam 1905 pm 90/40; 100; 36;96 4 LNC The dressing on her back is clean, dry and intact, no evidence of hematoma or cellulitis noted; fingers and toes cap refill ,3 sec bilat; 2+ pulses upper and lower ext bilat. Heart Reg no m/r /g lungs CTA Abd distended, tense, tender to percussion all over, no BS Ext minor edema bilat no asymmetry no pitting. Altered mentation Patient is on Zosyn, she has received a total of 3 L of IV fluids since the morning. ?I did review her laboratories and it also seems that she has acute kidney injury likely due to ATN and hypoperfusion.? I do not hear any abnormal lung sounds, she is afebrile and does not have a white count, the chances of this being related to a pneumonia slowing my differential, I do not think the patient has a PE at this point as her oxygen saturation did improve with nasal cannula supplementation.? The patient had received 90mg of Lovenox on the floor at 1630 pm. Revised Assessment: 1. Septic Shock in the setting of suspected bowel Perforation. 2. Metabolic and toxic Encephalopathy 3. JOSE MANUEL likely ATN in the setting of Hypoperfussion 4. Suspected bowel perforation 5. Met and lactic Acidosis 6. Acute Hypomagnesemia 7. Pseudo Hypocalcemia with corrected Ca level of 8.44 Plan as above; await CT with oral contrast, cont pressors, vent support, Zosyn may need further renal adjustment. Patient already received 3 L of IVF on the floor and is at risk of Fluid overload CHF if more are given, will use Albumin instead to help support her BP Intubation and Central line placement. (see separate notes); pressor support and other standart ICU care. Felicitas suggested as she had recent hardware implantation, now intubated and has a Bilateral Pna but not needed at this time per Dr Dolan, 06/03/23 0200 Clinical update and f/up sepsis focus eval No changes on exam exept for increased abd distention Meassured Intra abdominal pressure to r/o compartment syndrome of the abdomen and it was 13 received Final reading from [place] concerning for Increase Free Air (bowel perf) final report as joanna Called and discussed case with Dr Alex, who is coming in and take the patient to the OR I made him aware of Lovenox administration on the floor; it has been > 8 h so will give 0.5mg of Protamine Sulfate per mg of lovenox IV x 1= 45mg; check if Type and X is good or repeat [address] Alex at bed side, talked to her and will take her to the OR ALLISON 0545am patient back from the OR, surgeon Dr. Hernandez reports that the patient must had had a gastric bypass at some point for he found the source of the pe rforation was at the anastomotic site with lots of peritoneal fluid surrounding, no complications, EBL 20 cc, full surgical note to follow. Patient otherwise remains hemodynamically stable. Labs to be obtained. Total time spent with the patient for initial re-evaluation, transfer, coordination of care, workup, discussion with family members among others is 90 minutes.This case had a high probability of a clinically significant, sudden, or life threatening deterioration of this patient's condition which required my full and direct attention, intervention and personal management. Case was discussed with Dr. Dolan who is aware and in agreement. <DEBI Phillip - Last Filed: 06/03/23 19:54>
--- NOTE | 2023-06-02 20:18 | W.PM.CCHP ---
Procedures Date of Service Date of Service: 06/02/23 Central Line Placement Left IJ: Central Line Comments: A quick time-out was made for clarification and proper patient identification, patient was positioned, landmarks were identified, US used to locate a large compressible IJ. The left neck was widely prepped and draped in a full sterile fashion. Ultrasound was used to locate again the left IJ, the vein was cannulated on the 1st pass with an 18 gauge thin needle, dark nonpulsatile blood return was obtained. The wire was threaded, a small incision was made at its base and dilator inserted. A 16 cm triple-lumen central venous catheter was advanced into the vein up to the hub without problems, wired was removed. Ports had good blood return and flushed x3. The catheter was secured with 3 sutures at 3 sites, a Biopatch and dry sterile dressing were applied. Post procedure chest x-ray showed the line to be in good position without pneumothorax. No bleeding or complications noted. known air under the diaphragm; ETT tip at 3.5 cm from pooja. NG tube in place past the stomach. Intubation Mg given: 50
[2023-06-02] MEDS: Norepinephrine Bitartrate/D5W 8 MG/250 ML PLAST..BAG 8.59 MG IV (20:20)
--- NOTE | 2023-06-02 20:21 | W.PM.CCHP ---
Procedures Date of Service Date of Service: 06/02/23 Central Line Placement Left IJ: Consent for Procedure: Elective - informed consent obtained (from pt's Geovanny ) Time out performed: Yes Sterile Technique Used: Yes Patient placed on monitor/pulse ox: Yes prep: mask, gown, gloves and other Central line prep: Chlorhexidine scrub and sterile drapes applied Ultrasound used for placement: Yes Central line lumen inserted: triple Post procedure: sutured in place, good blood return, all ports aspirated, flushed, capped and sterile dressing applied Post procedure x-ray: tip of catheter in good position, no pneumothorax seen and other (known air under the diaphragm; ETT tip at 3.5 cm from the pooja post pulling back 3 cm as tip was initially at the entrance of R main bronchus ) Patient tolerated procedure: well and no complications Complications: none
[2023-06-02 20:24] LABS: White Blood Count 5.7 X10*3/uL (4.8-10.8)
[2023-06-02 20:38] LABS: ABG Base Excess 2.6 mmol/L; ABG HCO3 26 mmol/L (22-26); ABG pCO2 37 mmHg (32-45); ABG pH 7.45 (7.35-7.45); ABG pO2 61 mmHg (83-108)
[2023-06-02 20:39] LABS: Band Neutrophils Percent 32 % (3-5); Lymphocytes Absolute Manual 0.3 X10*3/uL (1.2-4.9); Lymphocytes Percent Manual 6 % (20-40); Metamyelocytes Absolute 0.6 X10*3/uL; Metamyelocytes Percent 10 %; Monocytes Absolute Manual 0.2 X10*3/uL (0.1-1.2); Monocytes Percent Manual 3 % (2-11); Myelocytes Absolute 0.2 X10*/uL; Myelocytes Percent 3 %; Neutrophils Absolute Manual 4.4 X10*3/uL (2.0-8.3); Neutrophils Percent Manual 46 % (45-73)
[2023-06-02 20:42] LABS: Burr Cells 1+ (0-2) /OIF; Ovalocytes 1+ (5-14) /OIF; Platelet Estimate NORMAL (NORMAL); Platelet Morphology Comment NORMAL; Polychromasia 1+ (0-2) /OIF; RBC Morphology NOTED
[2023-06-02] MEDS: propofoL 200 MG/20 ML VIAL 50 MG IVPUSH (20:42)
[2023-06-02 20:43] LABS: Dohle Bodies PRESENT; Toxic Granulation PRESENT
[2023-06-02] MEDS: Rocuronium Bromide 50 MG/5 ML VIAL 30 MG IVPUSH (20:43)
[2023-06-02] MEDS: propofoL 1,000 MG/100 ML VIAL 16.49 MG IVCONT (20:45)
--- NOTE | 2023-06-02 21:18 | HO.HCP_ITS ---
Health Care Proxy Invocation Health Care Proxy Declaration: I, Eris Hamilton PAC , on the date cited below, have determined that, Claudette Stapleton, lacks the capacity to make or communicate, informed health care decision. This determination is made in accordance with accepted standards of medical judgment and pursuant to [place] 201[place], the [place] Health Care Proxy Law. The cause, nature, extent and probable duration of the patient's inapacity are described below: Cause: Metabolic Encephalopathy Nature: Current illness Extent: unable to answer complex questions or make rational desicions Probable Duration of Patient's Incapacity: Undetermined but may improved once she recovers clinically Health Care Proxy Directions: I reached out to her Geovanny via phone to inform of her rapid decline and need of Intubation, central line placement need; he was informed about the procedures, risk vs benefits and He agreed and gave his consent, also related his decision with the pt's RN Hodan.
[2023-06-02 21:31] LABS: Platelet Count 137 X10*3/uL (160-400)
[2023-06-02 21:41] LABS: Reflex Lactate? Lactic Acid Added
[2023-06-02] MEDS: Sodium Bicarbonate 8.4% 50 MEQ/50 ML VIAL 100 MEQ IVPUSH (21:56)
[2023-06-02] MEDS: Magnesium Sulfate/H2O 2 GM/50 ML PIGGYBACK IV (22:11)
[2023-06-02 22:16] LABS: ~Lactic Acid-LAB USE ONLY 3.2 mmol/L (0.5-2.0)
[2023-06-02 22:42] LABS: Erythrocyte Sedimentation Rate 12 MM/HR (0-20)
[2023-06-02 23:30] LABS: Appearance Urine Turbid; Color Urine Dark Yellow; Glucose Urine UA Negative (Negative); Leukocyte Esterase Urine Negative (Negative); Nitrite Urine Negative (Negative); Specific Gravity - Urine 1.025 (1.005-1.025); UMIC TRIGGER UA YES; Urine Blood Moderate (2+) (Negative); Urine Ketones Negative (Negative); Urine Protein 30 (1+) mg/dL (Neg-Trace)
[2023-06-02 23:43] LABS: Bacteria Urine Trace (None Seen); Granular Casts Urine Present; RBC Urine 0-2 /HPF (0-2); WBC Urine 0-5 /HPF (0-5)
[2023-06-02] MEDS: Diatrizoate Meglumine, Sodium 30 ML SOLUTION 20 ML PO (23:46)
[2023-06-02 23:54] LABS: ABG Refer to POC result
[2023-06-02 23:55] LABS: Reflex Lactate? 2 Y
[2023-06-03] VITALS (39 sets, daily range): BP systolic 88–129; BP diastolic 50–70; PULSE 71–109; RESP 12–27; TEMP 34.9–38.4; O2SAT 91–98; BMI 35.9
[2023-06-03] MEDS: propofoL 1,000 MG/100 ML VIAL 21.99 MG IVCONT ×6 (00:32→23:02)
[2023-06-03 00:49] LABS: Alanine Aminotransferase 25 U/L (0-31); Albumin Level 3.2 g/dL (3.5-5.0); Alkaline Phosphatase 43 U/L (39-117); Anion Gap 17 (12-20); Aspartate Amino Transferase 56 U/L (5-31); Bilirubin Total 1.5 mg/dL (0.0-1.0); Blood Urea Nitrogen 27 mg/dL (9-16); Calcium 7.8 mg/dL (8.4-10.2); Carbon Dioxide 20 mmol/L (22-29); Chloride 107 mmol/L (96-108); Creatinine Clr Calc Pharmacy 22.4; Estimated Glomerular Filt Rate 17; Glucose Random 164 mg/dL (60-115); Potassium 3.4 mmol/L (3.3-5.1); Sodium 141 mmol/L (135-145)
[2023-06-03] MEDS: fentaNYL citrate/NS 1,000 MCG/100 ML PLAST..BAG 2.5 MCG IVCONT (00:55)
[2023-06-03] MEDS: Acetaminophen 1,000 MG/100 ML PIGGYBACK 400 MG IV ×4 (01:08→17:31)
[2023-06-03] MEDS: Piperacillin Sodium/Tazobactam 3.375 GM in 0.9 % Sodium Chloride 50 ML IV ×5 (01:42→23:12)
[2023-06-03] MEDS: Albumin Human 25 % 100 ML IV ×3 (01:58→03:37)
--- NOTE | 2023-06-03 02:17 | PC.NURSE ---
Intraabdominal pressure was done at approximatelly 0130, pressure was 12-13.
[2023-06-03] MEDS: Protamine Sulfate 50 MG/5 ML VIAL 45 MG IV (02:45)
--- NOTE | 2023-06-03 04:31 | P.CONAN_ITS ---
[facility] Active Problems Active Problems: All Active Problems Free intraperitoneal air (Acute) Acute hypoxic respiratory failure (Acute) Shock (Acute) Acute kidney injury (Acute) Acute encephalopathy (Acute) Hypotension (Acute) Hypoxia (Acute) Thoracic radiculopathy (Acute) Spondylolisthesis, lumbar region (Acute) Past Medical History Medical History Arthritis GERD (gastroesophageal reflux disease) Depression Polysubstance abuse Osteoarthritis Sleep apnea Elevated cholesterol Bipolar 1 disorder RLS (restless legs syndrome) Asthma HTN (hypertension) Pulmonary embolism Peripheral neuropathy Diabetes Family History Family history of problems with anesthesia: No Surgical History Surgical History H/O colonoscopy History of total right knee replacement Hx of tonsillectomy Hx of tubal ligation Hx of hysterectomy History of sleeve gastrectomy History of Problems with Anesthesia: No Social History Social History Household Members: Spouse Housing: House Are you a primary caregiver services home to a significant other at home: No Do you presently have visiting nurse or other home services: No Patient Tobacco Use Status: Never used Tobacco service: No Meds Allergies Allergy/AdvReac Type Severity Reaction Status Date / Time cephalexin [From Keflex] Allergy Intermediate Swelling Verified 04/28/23 11:05 glipizide Allergy Intermediate Rash Verified 04/28/23 11:05 metformin Allergy Intermediate Itching Verified 04/28/23 11:05 morphine Allergy Intermediate Nausea and Verified 04/29/23 12:35 Vomiting/ineffective ropinirole [From Requip] Allergy Intermediate Nausea and Verified 04/28/23 11:05 Vomiting doxycycline Allergy Hives Verified 05/31/23 09:14 CLARITZA Inhibitors AdvReac Intermediate Cough Verified 04/28/23 11:05 Active Medications: Current Medications Albuterol Sulfate (Albuterol Sulfate (0.083%) 2.5 Mg/3 Ml Vial.Neb) 2.5 mg INHALE ONCE PRN PRN Reason: Shortness of Breath/Wheezing Albuterol Sulfate (Albuterol Sulfate 90 Mcg 8 Gm Inhaler) 2 puff INHALE Q6H PRN PRN Reason: Shortness Of Breath Albuterol/Ipratropium (Albuterol/Iprat 2.5/0.5mg 3 Ml Ampul.Neb) 3 ml INHALE RQ4H WHILE AWAKE [facility] Last Admin: 06/02/23 21:04 Dose: Not Given Clonazepam (Clonazepam 1 Mg Tablet) 1 mg PO TID [facility] Last Admin: 06/02/23 14:06 Dose: Not Given Fluticasone/Vilanterol (Fluticasone/Vilanterol 200/25 Blst.W.Dev) 1 puff INHALE RDAILY [facility] Last Admin: 06/02/23 08:43 Dose: 1 puff Furosemide (Furosemide 20 Mg Tablet) 20 mg PO DAILY [facility]; Protocol Last Admin: 06/02/23 11:05 Dose: Not Given Gabapentin (Gabapentin 400 Mg Capsule) 800 mg PO BID [facility] Last Admin: 06/02/23 11:03 Dose: 800 mg Glucose (Glucose Gel 15 Gm Gel..Gram.) 15 gm PO Q15M PRN; Protocol PRN Reason: per Hypoglycemia Standing Ord. Acetaminophen (Ofirmev) 1,000 mg in 100 mls @ 400 mls/hr IV Q6H [facility] Last Infusion: 06/03/23 01:30 Dose: Infused Dextrose (D10) 250 mls @ 750 mls/hr IV Q15M PRN; Protocol PRN Reason: per Hypoglycemia Standing Ord. Piperacillin Sod/Tazobactam (Sod 3.375 gm/ Sodium Chloride) 50 mls @ 100 mls/hr IV Q6H [facility] Last Infusion: 06/03/23 02:19 Dose: Infused Sodium Bicarbonate 150 meq/ (Dextrose) 1,000 mls @ 100 mls/hr IV .Q10H [facility] Last Admin: 06/03/23 03:53 Dose: Not Given Propofol (Diprivan) 1,000 mg in 100 mls @ 0 mls/hr IVCONT .Q0M [facility]; Protocol Last Titration: 06/03/23 02:21 Dose: 40 mcg/kg/min, 21.99 mls/hr Norepinephrine Bitartrate (Levophed) 8 mg in 250 mls @ 0 mls/hr IV .Q0M [facility]; Protocol Last Titration: 06/03/23 02:20 Dose: 0.22 mcg/kg/min, 37.8 mls/hr Fentanyl (Sublimaze/Ns) 1,000 mcg in 100 mls @ 0 mls/hr IVCONT .Q0M [facility]; Protocol Last Titration: 06/03/23 01:10 Dose: 100 mcg/hr, 10 mls/hr Insulin Human Lispro (Insulin Lispro 100 Unit/Ml 3 Ml Vial) 0 unit SUBCUT QIDACHS [facility]; Protocol Last Admin: 06/02/23 21:58 Dose: Not Given Lactulose (Lactulose 20 Gm/30 Ml Solution) 10 gm PO DAILY [facility] Last Admin: 06/02/23 11:04 Dose: 10 gm Naloxone HCl (Naloxone Hcl 0.4 Mg/Ml Vial) 0.2 mg IVPUSH Q2M PRN PRN Reason: Excessive sedation or RR < 8 Non-Formulary Medication (Bupropion Hcl) 100 mg PO QAM [facility] Omeprazole (Omeprazole 20 Mg Capsule.Dr) 20 mg PO DAILY@0630 [facility] Last Admin: 06/02/23 06:18 Dose: Not Given Ondansetron HCl (Ondansetron Hcl 4 Mg/2 Ml Vial) 4 mg IVPUSH Q6H PRN PRN Reason: Nausea and Vomiting Pantoprazole Sodium (Pantoprazole Sodium 40 Mg/10 Ml Vial) 40 mg IVPUSH BID@0630,1630 [facility] Last Admin: 06/02/23 18:31 Dose: 40 mg Pharmacy Consult (Consult Rx Vancomycin Dosing) 1 each MISCELLANE DAILY PRN PRN Reason: Consult order Polyethylene Glycol (Polyethylene Glycol 3350 17 Gm Powd.Pack) 17 gm PO DAILY PRN PRN Reason: constipation Pramipexole Dihydrochloride (Pramipexole Di-Hcl 0.25 Mg Tablet) 0.25 mg PO DAILY [facility] Last Admin: 06/02/23 11:04 Dose: 0.25 mg Senna (Sennosides 8.6 Mg Tablet) 8.6 mg PO BEDTIME [facility] Last Admin: 06/02/23 22:20 Dose: Not Given Topiramate (Topiramate 100 Mg Tablet) 100 mg PO BID [facility] Last Admin: 06/02/23 22:20 Dose: Not Given Vortioxetine (Vortioxetine Hydrobromide 20 Mg Tablet) 20 mg PO DAILY [facility] Last Admin: 06/02/23 11:04 Dose: 20 mg Home Medications ?Medication ?Instructions ?Recorded ?Confirmed ?Last Taken ?Type albuterol sulfate 90 mcg/actuation 2 puff inhalation Q6H PRN 04/28/23 04/29/23 Unknown History aerosol inhaler (Ventolin HFA) Shortness Of Breath aspirin 81 mg tablet,delayed 81 mg PO DAILY 04/28/23 04/28/23 04/20/23 History release budesonide-formoterol HFA 160 2 puff inhalation BID 04/28/23 04/29/23 05/31/23 07:30 History mcg-4.5 mcg/actuation aerosol inhaler (Symbicort) bupropion HCl 100 mg tablet,12 hr 100 mg PO QAM 04/28/23 04/28/23 05/30/23 History sustained-release mouypvvlpu-bejnvlspawnvi-srcamwye 1 tab PO Q6H PRN pain 04/28/23 04/28/23 Unk nown History 50 mg-325 mg-40 mg tablet clonazepam 1 mg tablet 1 mg PO TID 04/28/23 04/28/23 05/30/23 History furosemide 40 mg tablet 20 mg PO DAILY 04/28/23 04/28/23 05/30/23 History gabapentin 800 mg tablet 800 mg PO BID 04/28/23 04/28/23 05/31/23 07:30 History hydroxyzine HCl 10 mg tablet 10 mg PO TID PRN Anxiety 04/28/23 04/28/23 Unknown History insulin aspart U-100 100 unit/mL 4 - 30 unit subcut TID 04/28/23 04/28/23 05/30/23 History (3 mL) subcutaneous pen lorazepam 1 mg tablet 1 mg PO TID 04/28/23 04/28/23 05/31/23 07:30 History melatonin 10 mg-lemon balm leaf 1 tab PO BEDTIME 04/28/23 04/28/23 Unknown History extract 1 mg tablet metoprolol tartrate 25 mg tablet 25 mg PO DAILY 04/28/23 04/28/23 05/31/23 07:30 History potassium chloride 10 mEq 10 meq PO DAILY 04/28/23 05/30/23 History tablet,extended release pramipexole 0.25 mg tablet 0.25 mg PO DAILY 04/28/23 04/28/23 05/30/23 History pregabalin 150 mg capsule 150 mg PO BID 04/28/23 04/28/23 Unknown History semaglutide 0.25 mg or 0.5 mg (2 0.5 mg subcut QWEEK 04/28/23 04/28/23 05/20/23 History mg/3 mL) subcutaneous pen injector (Ozempic) topiramate 100 mg tablet 100 mg PO BID 04/28/23 04/28/23 05/30/23 History trazodone 100 mg tablet 300 mg PO BEDTIME 04/28/23 04/28/23 05/30/23 History vortioxetine 20 mg tablet 20 mg PO DAILY 04/28/23 04/28/23 05/30/23 History (Trintellix) lactulose 10 gram/15 mL oral 15 ml PO QAM 04/29/23 04/29/23 05/30/23 History solution pantoprazole 40 mg tablet,delayed 40 mg PO DAILY 04/29/23 04/29/23 05/31/23 07:3 0 History release polyethylene glycol 3350 17 gram 17 g PO DAILY PRN constipation 04/29/23 04/29/23 Unknown History oral powder packet sennosides 8.6 mg tablet (senna) 8.6 mg PO BEDTIME 04/29/23 04/29/23 Unknown History Exam Height,Weight and Vital Signs: Height 5 ft 4 in Weight 91.626 kg Last Vital Signs Temp 100.8 F H 06/03/23 03:00 Pulse 101 H 06/03/23 03:00 Resp 23 H 06/03/23 03:00 BP 106/67 06/03/23 03:00 Pulse Ox 93 06/03/23 03:00 O2 Del Method Mechanical Ventilation 06/03/23 03:00 O2 Flow Rate 5 06/02/23 19:58 FiO2 25 06/03/23 03:00 Pertinent Lab Results Pertinent Lab Results: Laboratory Tests 04/29/23 04/29/23 05/31/23 13:20 13:22 09:13 WBC 16.1 H RBC 4.69 Hgb 14.2 Hct 41.3 MCV 88.1 MCH 30.3 MCHC 34.4 RDW 13.2 Plt Count 150 L MPV 12.4 H Immature Gran % (Auto) Neut % (Auto) Lymph % (Auto) [place] % (Auto) Eos % (Auto) Baso % (Auto) Lymph # (Auto) [place] # (Auto) Eos # (Auto) Baso # (Auto) Abs Immat Gran (auto) Absolute Neuts (auto) Absolute Nucleated RBC 0.000 Nucleated RBC % (auto) 0.0 Neutrophils % (Manual) Band Neutrophils % Lymphocytes % (Manual) Monocytes % (Manual) Metamyelocytes % Myelocytes % Abs Neuts (Manual) Lymphocytes # (Manual) Monocytes # (Manual) Metamyelocytes # Myelocytes # Toxic Granulation Toxic Vacuolation Dohle Bodies Platelet Estimate Plt Morphology Comment RBC Morphology Polychromasia Ovalocytes [place] Cells ESR D-Dimer High Sensitivty O2 Saturation ABG pH at Pt Temp ABG pCO2 at Pt Temp ABG pO2 at Pt Temp ABG HCO3 ABG Base Excess (Actual) Sodium 140 Potassium 4.1 Chloride 105 Carbon Dioxide 23 Anion Gap 16 BUN 16 Creatinine 0.94 Estim Creat Clear Calc 69.6 Estimated GFR > 60 POC Glucose Random Glucose 127 H Estimat Average Glucose 103 Hemoglobin A1c % 5.2 Lactic Acid Lactic Acid F/U @ 2Hr Lactic Acid F/U @ 4Hr Calcium 9.3 Phosphorus Magnesium Total Bilirubin AST ALT Alkaline Phosphatase Troponin I High Sens C-Reactive Protein B-Natriuretic Peptide Total Protein Albumin Urine Color Urine Appearance Urine pH Ur Specific [place] Urine Protein Urine Glucose (UA) Urine Ketones Urine Blood Urine Nitrite Ur Leukocyte Esterase Urine RBC Urine WBC Ur Squamous Epith Cells Urine Bacteria Hyaline Casts Granular Casts Blood Type A Negative A Negative Antibody Screen NEGATIVE NEGATIVE 05/31/23 05/31/23 05/31/23 09:40 16:16 20:22 WBC RBC Hgb Hct MCV MCH MCHC RDW Plt Count MPV Immature Gran % (Auto) Neut % (Auto) Lymph % (Auto) [place] % (Auto) Eos % (Auto) Baso % (Auto) Lymph # (Auto) [place] # (Auto) Eos # (Auto) Baso # (Auto) Abs Immat Gran (auto) Absolute Neuts (auto) Absolute Nucleated RBC Nucleated RBC % (auto) Neutrophils % (Manual) Band Neutrophils % Lymphocytes % (Manual) Monocytes % (Manual) Metamyelocytes % Myelocytes % Abs Neuts (Manual) Lymphocytes # (Manual) Monocytes # (Manual) Metamyelocytes # Myelocytes # Toxic Granulation Toxic Vacuolation Dohle Bodies Platelet Estimate Plt Morphology Comment RBC Morphology Polychromasia Ovalocytes [place] Cells ESR D-Dimer High Sensitivty O2 Saturation ABG pH at Pt Temp ABG pCO2 at Pt Temp ABG pO2 at Pt Temp ABG HCO3 ABG Base Excess (Actual) Sodium Potassium Chloride Carbon Dioxide Anion Gap BUN Creatinine Estim Creat Clear Calc Estimated GFR POC Glucose 117 H 160 H 146 H Random Glucose Estimat Average Glucose Hemoglobin A1c % Lactic Acid Lactic Acid F/U @ 2Hr Lactic Acid F/U @ 4Hr Calcium Phosphorus Magnesium Total Bilirubin AST ALT Alkaline Phosphatase Troponin I High Sens C-Reactive Protein B-Natriuretic Peptide Total Protein Albumin Urine Color Urine Appearance Urine pH Ur Specific [place] Urine Protein Urine Glucose (UA) Urine Ketones Urine Blood Urine Nitrite Ur Leukocyte Esterase Urine RBC Urine WBC Ur Squamous Epith Cells Urine Bacteria Hyaline Casts Granular Casts Blood Type Antibody Screen 06/01/23 06/01/23 06/01/23 06:45 11:02 16:18 WBC RBC Hgb Hct MCV MCH MCHC RDW Plt Count MPV Immature Gran % (Auto) Neut % (Auto) Lymph % (Auto) [place] % (Auto) Eos % (Auto) Baso % (Auto) Lymph # (Auto) [place] # (Auto) Eos # (Auto) Baso # (Auto) Abs Immat Gran (auto) Absolute Neuts (auto) Absolute Nucleated RBC Nucleated RBC % (auto) Neutrophils % (Manual) Band Neutrophils % Lymphocytes % (Manual) Monocytes % (Manual) Metamyelocytes % Myelocytes % Abs Neuts (Manual) Lymphocytes # (Manual) Monocytes # (Manual) Metamyelocytes # Myelocytes # Toxic Granulation Toxic Vacuolation Dohle Bodies Platelet Estimate Plt Morphology Comment RBC Morphology Polychromasia Ovalocytes [place] Cells ESR D-Dimer High Sensitivty O2 Saturation ABG pH at Pt Temp ABG pCO2 at Pt Temp ABG pO2 at Pt Temp ABG HCO3 ABG Base Excess (Actual) Sodium Potassium Chloride Carbon Dioxide Anion Gap BUN Creatinine Estim Creat Clear Calc Estimated GFR POC Glucose 89 75 104 Random Glucose Estimat Average Glucose Hemoglobin A1c % Lactic Acid Lactic Acid F/U @ 2Hr Lactic Acid F/U @ 4Hr Calcium Phosphorus Magnesium Total Bilirubin AST ALT Alkaline Phosphatase Troponin I High Sens C-Reactive Protein B-Natriuretic Peptide Total Protein Albumin Urine Color Urine Appearance Urine pH Ur Specific [place] Urine Protein Urine Glucose (UA) Urine Ketones Urine Blood Urine Nitrite Ur Leukocyte Esterase Urine RBC Urine WBC Ur Squamous Epith Cells Urine Bacteria Hyaline Casts Granular Casts Blood Type Antibody Screen 06/01/23 06/02/23 06/02/23 20:35 05:34 07:00 WBC RBC Hgb Hct MCV MCH MCHC RDW Plt Count MPV Immature Gran % (Auto) Neut % (Auto) Lymph % (Auto) [place] % (Auto) Eos % (Auto) Baso % (Auto) Lymph # (Auto) [place] # (Auto) Eos # (Auto) Baso # (Auto) Abs Immat Gran (auto) Absolute Neuts (auto) Absolute Nucleated RBC Nucleated RBC % (auto) Neutrophils % (Manual) Band Neutrophils % Lymphocytes % (Manual) Monocytes % (Manual) Metamyelocytes % Myelocytes % Abs Neuts (Manual) Lymphocytes # (Manual) Monocytes # (Manual) Metamyelocytes # Myelocytes # Toxic Granulation Toxic Vacuolation Dohle Bodies Platelet Estimate Plt Morphology Comment RBC Morphology Polychromasia Ovalocytes [place] Cells ESR D-Dimer High Sensitivty O2 Saturation ABG pH at Pt Temp ABG pCO2 at Pt Temp ABG pO2 at Pt Temp ABG HCO3 ABG Base Excess (Actual) Sodium Potassium Chloride Carbon Dioxide Anion Gap BUN Creatinine Estim Creat Clear Calc Estimated GFR POC Glucose 93 143 H 136 H Random Glucose Estimat Average Glucose Hemoglobin A1c % Lactic Acid Lactic Acid F/U @ 2Hr Lactic Acid F/U @ 4Hr Calcium Phosphorus Magnesium Total Bilirubin AST ALT Alkaline Phosphatase Troponin I High Sens C-Reactive Protein B-Natriuretic Peptide Total Protein Albumin Urine Color Urine Appearance Urine pH Ur Specific [place] Urine Protein Urine Glucose (UA) Urine Ketones Urine Blood Urine Nitrite Ur Leukocyte Esterase Urine RBC Urine WBC Ur Squamous Epith Cells Urine Bacteria Hyaline Casts Granular Casts Blood Type Antibody Screen 06/02/23 06/02/23 06/02/23 09:15 10:54 13:41 WBC 7.6 RBC 4.56 Hgb 13.6 Hct 41.2 MCV 90.4 MCH 29.8 MCHC 33.0 RDW 14.1 Plt Count 169 MPV 12.9 H Immature Gran % (Auto) Cancelled Neut % (Auto) Cancelled Lymph % (Auto) Cancelled [place] % (Auto) Cancelled Eos % (Auto) Cancelled Baso % (Auto) Cancelled Lymph # (Auto) Cancelled [place] # (Auto) Cancelled Eos # (Auto) Cancelled Baso # (Auto) Cancelled Abs Immat Gran (auto) Cancelled Absolute Neuts (auto) Cancelled Absolute Nucleated RBC 0.000 Nucleated RBC % (auto) 0.0 Neutrophils % (Manual) 77 H Band Neutrophils % 13 H Lymphocytes % (Manual) 5 L Monocytes % (Manual) 3 Metamyelocytes % 2 Myelocytes % Abs Neuts (Manual) 6.8 Lymphocytes # (Manual) 0.4 L Monocytes # (Manual) 0.2 Metamyelocytes # 0.2 Myelocytes # Toxic Granulation Toxic Vacuolation PRESENT Dohle Bodies Platelet Estimate NORMAL Plt Morphology Comment NORMAL RBC Morphology NORMAL Polychromasia Ovalocytes [place] Cells ESR D-Dimer High Sensitivty 2351 O2 Saturation ABG pH at Pt Temp ABG pCO2 at Pt Temp ABG pO2 at Pt Temp ABG HCO3 ABG Base Excess (Actual) Sodium 138 Potassium 3.6 Chloride 113 H Carbon Dioxide 15 L Anion Gap 14 BUN 19 H Creatinine 2.57 H Estim Creat Clear Calc 24.8 Estimated GFR 19 POC Glucose 148 H Random Glucose 142 H Estimat Average Glucose Hemoglobin A1c % Lactic Acid Lactic Acid F/U @ 2Hr Lactic Acid F/U @ 4Hr Calcium 7.8 L D Phosphorus Magnesium Total Bilirubin 1.0 AST 41 H ALT 23 Alkaline Phosphatase 46 Troponin I High Sens 3.2 C-Reactive Protein B-Natriuretic Peptide 40 Total Protein 4.8 L Albumin 2.7 L Urine Color Urine Appearance Urine pH Ur Specific [place] Urine Protein Urine Glucose (UA) Urine Ketones Urine Blood Urine Nitrite Ur Leukocyte Esterase Urine RBC Urine WBC Ur Squamous Epith Cells Urine Bacteria Hyaline Casts Granular Casts Blood Type Antibody Screen 06/02/23 06/02/23 06/02/23 16:04 16:57 19:33 WBC RBC Hgb Hct MCV MCH MCHC RDW Plt Count MPV Immature Gran % (Auto) Neut % (Auto) Lymph % (Auto) [place] % (Auto) Eos % (Auto) Baso % (Auto) Lymph # (Auto) [place] # (Auto) Eos # (Auto) Baso # (Auto) Abs Immat Gran (auto) Absolute Neuts (auto) Absolute Nucleated RBC Nucleated RBC % (auto) Neutrophils % (Manual) Band Neutrophils % Lymphocytes % (Manual) Monocytes % (Manual) Metamyelocytes % Myelocytes % Abs Neuts (Manual) Lymphocytes # (Manual) Monocytes # (Manual) Metamyelocytes # Myelocytes # Toxic Granulation Toxic Vacuolation Dohle Bodies Platelet Estimate Plt Morphology Comment RBC Morphology Polychromasia Ovalocytes [place] Cells ESR D-Dimer High Sensitivty O2 Saturation 90.0 ABG pH at Pt Temp 7.30 L ABG pCO2 at Pt Temp 28 L ABG pO2 at Pt Temp 59 L ABG HCO3 14 L ABG Base Excess (Actual) -10.7 Sodium Potassium Chloride Carbon Dioxide Anion Gap BUN Creatinine Estim Creat Clear Calc Estimated GFR POC Glucose 150 H Random Glucose Estimat Average Glucose Hemoglobin A1c % Lactic Acid 3.9 H* Lactic Acid F/U @ 2Hr Lactic Acid F/U @ 4Hr Calcium Phosphorus Magnesium Total Bilirubin AST ALT Alkaline Phosphatase Troponin I High Sens C-Reactive Protein B-Natriuretic Peptide Total Protein Albumin Urine Color Urine Appearance Urine pH Ur Specific [place] Urine Protein Urine Glucose (UA) Urine Ketones Urine Blood Urine Nitrite Ur Leukocyte Esterase Urine RBC Urine WBC Ur Squamous Epith Cells Urine Bacteria Hyaline Casts Granular Casts Blood Type Antibody Screen 06/02/23 06/02/23 06/02/23 19:34 19:49 20:31 WBC 5.7 RBC 4.28 Hgb 12.8 Hct 39.3 MCV 91.8 MCH 29.9 MCHC 32.6 RDW 14.5 Plt Count 137 L MPV 12.7 H Immature Gran % (Auto) Cancelled Neut % (Auto) Cancelled Lymph % (Auto) Cancelled [place] % (Auto) Cancelled Eos % (Auto) Cancelled Baso % (Auto) Cancelled Lymph # (Auto) Cancelled [place] # (Auto) Cancelled Eos # (Auto) Cancelled Baso # (Auto) Cancelled Abs Immat Gran (auto) Cancelled Absolute Neuts (auto) Cancelled Absolute Nucleated RBC 0.000 Nucleated RBC % (auto) 0.0 Neutrophils % (Manual) 46 Band Neutrophils % 32 H Lymphocytes % (Manual) 6 L Monocytes % (Manual) 3 Metamyelocytes % 10 Myelocytes % 3 Abs Neuts (Manual) 4.4 Lymphocytes # (Manual) 0.3 L Monocytes # (Manual) 0.2 Metamyelocytes # 0.6 Myelocytes # 0.2 Toxic Granulation PRESENT Toxic Vacuolation Dohle Bodies PRESENT Platelet Estimate NORMAL Plt Morphology Comment NORMAL RBC Morphology NOTED Polychromasia 1+ (0-2) Ovalocytes 1+ (5-14) [place] Cells 1+ (0-2) ESR D-Dimer High Sensitivty O2 Saturation 94.0 ABG pH at Pt Temp 7.45 ABG pCO2 at Pt Temp 37 ABG pO2 at Pt Temp 61 L ABG HCO3 26 ABG Base Excess (Actual) 2.6 Sodium 138 Potassium 3.7 Chloride 112 H Carbon Dioxide 13 L Anion Gap 17 BUN 23 H Creatinine 2.84 H Estim Creat Clear Calc 22.4 Estimated GFR 17 POC Glucose 116 H Random Glucose 132 H Estimat Average Glucose Hemoglobin A1c % Lactic Acid Lactic Acid F/U @ 2Hr Lactic Acid F/U @ 4Hr Calcium 7.9 L Phosphorus 3.1 Magnesium 1.4 L* Total Bilirubin 1.4 H AST 45 H ALT 23 Alkaline Phosphatase 42 Troponin I High Sens C-Reactive Protein 32.42 H B-Natriuretic Peptide Total Protein 5.5 L Albumin 3.5 Urine Color Urine Appearance Urine pH Ur Specific [place] Urine Protein Urine Glucose (UA) Urine Ketones Urine Blood Urine Nitrite Ur Leukocyte Esterase Urine RBC Urine WBC Ur Squamous Epith Cells Urine Bacteria Hyaline Casts Granular Casts Blood Type Antibody Screen 06/02/23 06/02/23 06/03/23 21:52 23:22 00:21 WBC RBC Hgb Hct MCV MCH MCHC RDW Plt Count MPV Immature Gran % (Auto) Neut % (Auto) Lymph % (Auto) [place] % (Auto) Eos % (Auto) Baso % (Auto) Lymph # (Auto) [place] # (Auto) Eos # (Auto) Baso # (Auto) Abs Immat Gran (auto) Absolute Neuts (auto) Absolute Nucleated RBC Nucleated RBC % (auto) Neutrophils % (Manual) Band Neutrophils % Lymphocytes % (Manual) Monocytes % (Manual) Metamyelocytes % Myelocytes % Abs Neuts (Manual) Lymphocytes # (Manual) Monocytes # (Manual) Metamyelocytes # Myelocytes # Toxic Granulation Toxic Vacuolation Dohle Bodies Platelet Estimate Plt Morphology Comment RBC Morphology Polychromasia Ovalocytes [place] Cells ESR 12 D-Dimer High Sensitivty O2 Saturation ABG pH at Pt Temp ABG pCO2 at Pt Temp ABG pO2 at Pt Temp ABG HCO3 ABG Base Excess (Actual) Sodium 141 Potassium 3.4 Chloride 107 Carbon Dioxide 20 L Anion Gap 17 BUN 27 H Creatinine 2.85 H Estim Creat Clear Calc 22.4 Estimated GFR 17 POC Glucose Random Glucose 164 H Estimat Average Glucose Hemoglobin A1c % Lactic Acid Lactic Acid F/U @ 2Hr 3.2 H* Lactic Acid F/U @ 4Hr 4.0 H* Calcium 7.8 L Phosphorus Magnesium Total Bilirubin 1.5 H AST 56 H ALT 25 Alkaline Phosphatase 43 Troponin I High Sens C-Reactive Protein B-Natriuretic Peptide Total Protein 5.0 L Albumin 3.2 L Urine Color Dark Yellow Urine Appearance Turbid Urine pH 5.0 Ur Specific [place] 1.025 Urine Protein 30 (1+) H Urine Glucose (UA) Negative Urine Ketones Negative Urine Blood Moderate (2+) H Urine Nitrite Negative Ur Leukocyte Esterase Negative Urine RBC 0-2 Urine WBC 0-5 Ur Squamous Epith Cells 3-5 Urine Bacteria Trace Hyaline Casts 11-20 Granular Casts Present Blood Type Antibody Screen Airway Other: Pt is intubated in ICU, on Norepinephrine for pressure suppo Assessment and Plan Assessment Anesthesia Assessment: Anesthesia Plan Discussed and Chart Reviewed Final Anesthetic Review Family History of Problems with Anesthesia: No History of Problems with Anesthesia: No NPO: Yes ASA Class: IV and Emergency Final Preanesthetic Review: No Changes in Pt Med Stat, Meds/Allgs Chart Reviewed, Consent Obtained/Reviewed and Anes Risks/Benef Reviewed Patient Risk: High Procedure Risk: High Anesthetic Plan Anesthetic Plan: GA Disposition: Inp. Admit - ICU
--- NOTE | 2023-06-03 05:28 | W.PM.OPN ---
Operative Note Operative Note Date of Service: 06/03/23 Narrative: Preoperative diagnosis: Perforated viscus Postoperative diagnosis: Perforated ulcer at Pamela-en-Y anastomosis Procedure: Exploratory laparotomy, plication of ulcer at Pamela-en-Y anastomosis. 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 Repeat CT with contrast did not demonstrate a leak however increased intraperitoneal air and fluid was identified suggestive of perforated viscus of unknown site. Operative findings: Exploratory laparotomy revealed a large amount of intraperitoneal succus entericus. Examination of the sigmoid colon and descending colon revealed no evidence of perforation. Further exploration however did reveal perforation in the left upper quadrant and an apparent Pamela Y limb anastomosis possibly a perforated ulcer with copious amount of leaking fluid. No other site of perforation could be identified. No gastric ulcer was identified. Specimen: Wound culture of peritoneal fluid Estimated blood loss: 20 mL Complications: None Procedure details: Patient was brought to the OR and placed in a supine position. After administering general anesthesia the patient's abdomen was prepped with ChloraPrep and draped in a sterile fashion. A surgical time-out was called the consent confirmed. Patient received preoperative antibiotics prior to entering the OR. Venodyne boots were in place as well. Local anesthesia was then infiltrated in the midline incision. A midline incision was then created with a scalpel. This was carried out through linea alba into the abdominal cavity. A large amount of gas and fluid was evacuated. A Bookwalter retractor was then placed. Dense adhesions were noted to the anterior abdominal wall in the lower abdomen. These were taken down using electrocautery. Complete exploration revealed a perforation at an apparent Pamela limb anastomosis in the jejunum. There was evidence of a Tycron suture at the area of the perforation. The ulceration margins appeared clean with no evidence of necrosis. No mass was appreciated the wall. The ulcer was plicated using interrupted Lembert 3-0 Surgilon sutures. Omentum was also secured over the anastomosis. The abdomen was then thoroughly irrigated and explored. No evidence of colon perforation was identified. No other source of leakage could be identified. The abdomen was also irrigated using IrriSept followed by another L of saline solution. Fascia was then closed in the midline using a running 0 PDS looped suture. Two sutures were used from the top and bottom and tied in the center. Subcutaneous tissue was then reapproximated as well as dermis using 3-0 Polysorb suture. Skin was closed using skin enio. Sterile dressings were then applied. The patient remains in critical condition. The patient was transferred back to ICU. Sponge, instrument, and needle counts reported as correct.
[2023-06-03] MEDS: Norepinephrine Bitartrate/D5W 8 MG/250 ML PLAST..BAG 34.36 MG IV (05:54)
[2023-06-03] MEDS: Pantoprazole Sodium 40 MG/10 ML VIAL IVPUSH ×2 (06:04→15:39)
[2023-06-03 06:15] LABS: VBG HCO3 21 mmol/L (22-26); VBG pCO2 43 mmHg; VBG pH 7.29 (7.32-7.43); VBG pO2 56 mmHg
[2023-06-03 06:17] LABS: Venous Blood Gas Refer to POC result
[2023-06-03] MEDS: Fluconazole in NaCl,Iso-Osm 200 MG/100 ML PIGGYBACK 100 MG IV (06:25)
[2023-06-03 06:40] LABS: Hematocrit 34.8 % (37.0-47.0); Hemoglobin 11.5 g/dl (12.0-16.0); Mean Corpuscular Hemoglobin 29.6 pg (27.0-33.0); Mean Corpuscular Volume 89.7 fL (80.0-98.0); Mean Platelet Volume 13.2 fL (9.4-12.3); Platelet Count 113 X10*3/uL (160-400); Red Blood Count 3.88 X10*6/uL (4.20-5.50); Red Cell Distribution Width 14.5 % (11.0-16.0); White Blood Count 3.8 X10*3/uL (4.8-10.8)
[2023-06-03 06:52] LABS: Alanine Aminotransferase 20 U/L (0-31); Albumin Level 3.4 g/dL (3.5-5.0); Alkaline Phosphatase 35 U/L (39-117); Anion Gap 16 (12-20); Aspartate Amino Transferase 46 U/L (5-31); Bilirubin Total 1.5 mg/dL (0.0-1.0); Blood Urea Nitrogen 29 mg/dL (9-16); Calcium 7.4 mg/dL (8.4-10.2); Carbon Dioxide 22 mmol/L (22-29); Chloride 106 mmol/L (96-108); Creatinine Clr Calc Pharmacy 21.2; Estimated Glomerular Filt Rate 15; Glucose Fasting 155 mg/dL (60-99); Magnesium 1.5 mg/dL (1.6-2.6); Phosphorus 3.7 mg/dL (2.7-4.5); Potassium 3.3 mmol/L (3.3-5.1); Sodium 141 mmol/L (135-145); Total Protein 4.9 g/dL (6.5-8.0)
[2023-06-03 07:45] LABS: Glucose, Whole Blood 155 mg/dL (60-115)
[2023-06-03] MEDS: Insulin Lispro 100 UNIT/ML 3 ML VIAL SUBCUT ×3 (07:45→17:19)
--- NOTE | 2023-06-03 08:28 | PM.PNGS ---
Subjective Subjective Date of Service: 06/03/23 <Osiris Koroma PA-C - Last Filed: 06/03/23 08:33> 06/03/23 <Bon Hanks MD - Last Filed: 06/03/23 08:52> Interval history: Had exploratory laparotomy, plication of ulcer at Pamela-en-Y anastomosis early this morning. Remains on intuabted, on pressors in ICU. <Osiris Koroma PA-C - Last Filed: 06/03/23 08:33> Physical Exam Vital Signs: Vital Signs: Last Vital Signs Temp 99.7 F 06/03/23 08:00 Pulse 102 H 06/03/23 08:16 Resp 21 H 06/03/23 08:00 BP 105/63 06/03/23 08:16 Pulse Ox 94 06/03/23 08:00 O2 Del Method Mechanical Ventil ation 06/03/23 08:00 O2 Flow Rate 5 06/02/23 19:58 FiO2 40 06/03/23 08:00 BMI result Body Mass Index 35.9 <Osiris Koroma PA-C - Last Filed: 06/03/23 08:33> Resp: Other: on vent <Osiris Koroma PA-C - Last Filed: 06/03/23 08:33> GI: Inspection: No distended and Yes incision (dressing c/d/i) <Osiris Koroma PA-C - Last Filed: 06/03/23 08:33> Palpation (GI): Soft to palpation <Osiris Koroma PA-C - Last Filed: 06/03/23 08:33> Percussion: Yes normal to percussion <Osiris Koroma PA-C - Last Filed: 06/03/23 08:33> Skin: General skin exam: no rashes or lesions noted <JAIME Griffin Last Filed: 06/03/23 08:33> Objective Data Active Medications Albuterol Sulfate (Albuterol Sulfate (0.083%) 2.5 Mg/3 Ml Vial.Neb) 2.5 mg INHALE ONCE PRN PRN Reason: Shortness of Breath/Wheezing Albuterol Sulfate (Albuterol Sulfate 90 Mcg 8 Gm Inhaler) 2 puff INHALE Q6H PRN PRN Reason: Shortness Of Breath Albuterol/Ipratropium (Albuterol/Iprat 2.5/0.5mg 3 Ml Ampul.Neb) 3 ml INHALE RQ4H WHILE AWAKE FORMERLY [facility], 1928[facility]1983 Last Admin: 06/02/23 21:04 Dose: Not Given Documented By: BISI Non-Admin Reason: See Note Clonazepam (Clonazepam 1 Mg Tablet) 1 mg PO TID [facility], [facility]1983 Last Admin: 06/02/23 14:06 Dose: Not Given Documented By: RAVEN Non-Admin Reason: pt lethargic Fluticasone/Vilanterol (Fluticasone/Vilanterol 200/25 Blst.W.Dev) 1 puff INHALE RDAILY [facility], [facility]–1983 Last Admin: 06/02/23 08:43 Dose: 1 puff Documented By: DONNA Furosemide (Furosemide 20 Mg Tablet) 20 mg PO DAILY [facility], [facility]; Protocol Last Admin: 06/02/23 11:05 Dose: Not Given Documented By: RAVEN Non-Admin Reason: Decreased Blood Pressure Gabapentin (Gabapentin 400 Mg Capsule) 800 mg PO BID [facility], [facility]1983 Last Admin: 06/02/23 11:03 Dose: 800 mg Documented By: RAVEN Glucose (Glucose Gel 15 Gm Gel..Gram.) 15 gm PO Q15M PRN; Protocol PRN Reason: per Hypoglycemia Standing Ord. Acetaminophen (Ofirmev) 1,000 mg in 100 mls @ 400 mls/hr IV Q6H [facility], [facility]1983 Last Infusion: 06/03/23 07:51 Dose: Infused Documented By: ELIJAH Dextrose (D10) 250 mls @ 750 mls/hr IV Q15M PRN; Protocol PRN Reason: per Hypoglycemia Standing Ord. Piperacillin Sod/Tazobactam (Sod 3.375 gm/ Sodium Chloride) 50 mls @ 100 mls/hr IV Q6H [facility], [facility] Last Infusion: 06/03/23 06:31 Dose: Infused Documented By: SAMUEL Sodium Bicarbonate 150 meq/ (Dextrose) 1,000 mls @ 100 mls/hr IV .Q10H [facility], [facility]–1983 Last Admin: 06/03/23 03:53 Dose: Not Given Documented By: KERMIT Non-Admin Reason: IV paused/pt to OR Propofol (Diprivan) 1,000 mg in 100 mls @ 0 mls/hr IVCONT .Q0M [facility], [facility]; Protocol Last Titration: 06/03/23 08:15 Dose: 30 mcg/kg/min, 16.49 mls/hr Documented By: ELIJAH Norepinephrine Bitartrate (Levophed) 8 mg in 250 mls @ 0 mls/hr IV .Q0M [facility], [facility]; Protocol Last Titration: 06/03/23 08:16 Dose: 0.18 mcg/kg/min, 30.92 mls/hr Documented By: ELIJAH Fentanyl (Sublimaze/Ns) 1,000 mcg in 100 mls @ 0 mls/hr IVCONT .Q0M [facility], [facility]–1983; Protocol Last Titration: 06/03/23 05:45 Dose: 50 mcg/hr, 5 mls/hr Documented By: SAMUEL Insulin Human Lispro (Insulin Lispro 100 Unit/Ml 3 Ml Vial) 0 unit SUBCUT QIDACHS [facility], [facility]; Protocol Last Admin: 06/03/23 07:45 Dose: 2 unit Documented By: ELIJAH Lactulose (Lactulose 20 Gm/30 Ml Solution) 10 gm PO DAILY [facility], [facility]1983 Last Admin: 06/02/23 11:04 Dose: 10 gm Documented By: RAVEN Naloxone HCl (Naloxone Hcl 0.4 Mg/Ml Vial) 0.2 mg IVPUSH Q2M PRN PRN Reason: Excessive sedation or RR < 8 Non-Formulary Medication (Bupropion Hcl) 100 mg PO QAM [facility], [facility] Ondansetron HCl (Ondansetron Hcl 4 Mg/2 Ml Vial) 4 mg IVPUSH Q6H PRN PRN Reason: Nausea and Vomiting Pantoprazole Sodium (Pantoprazole Sodium 40 Mg/10 Ml Vial) 40 mg IVPUSH BID@0630,1630 [facility], [facility] Last Admin: 06/03/23 06:04 Dose: 40 mg Documented By: SAMUEL Pantoprazole Sodium (Pantoprazole Sodium 40 Mg/10 Ml Vial) 40 mg IVPUSH DAILY@0630 [facility], [facility]1983 Pharmacy Consult (Consult Rx Vancomycin Dosing) 1 each MISCELLANE DAILY PRN PRN Reason: Consult order Polyethylene Glycol (Polyethylene Glycol 3350 17 Gm Powd.Pack) 17 gm PO DAILY PRN PRN Reason: constipation Pramipexole Dihydrochloride (Pramipexole Di-Hcl 0.25 Mg Tablet) 0.25 mg PO DAILY [facility] Last Admin: 06/02/23 11:04 Dose: 0.25 mg Documented By: RAVEN Senna (Sennosides 8.6 Mg Tablet) 8.6 mg PO BEDTIME [facility], [facility] Last Admin: 06/02/23 22:20 Dose: Not Given Documented By: CHESTER Non-Admin Reason: NPO Topiramate (Topiramate 100 Mg Tablet) 100 mg PO BID [facility] Last Admin: 06/02/23 22:20 Dose: Not Given Documented By: CHESTER Non-Admin Reason: NPO Vortioxetine (Vortioxetine Hydrobromide 20 Mg Tablet) 20 mg PO DAILY [facility] Last Admin: 06/02/23 11:04 Dose: 20 mg Documented By: RAVEN <Osiris Koroma PA-C - Last Filed: 06/03/23 08:33> Labs CBC & Chem 7: 06/03/23 06:07 06/03/23 06:07 <Osiris Koroma PA-C - Last Filed: 06/03/23 08:33> Labs: Laboratory Results - last 24 hr 06/02/23 06/02/23 06/02/23 09:15 10:54 13:41 MCV 90.4 MCH 29.8 MCHC 33.0 RDW 14.1 Plt Count 169 MPV 12.9 H Immature Gran % (Auto) Cancelled Neut % (Auto) Cancelled Lymph % (Auto) Cancelled [place] % (Auto) Cancelled Eos % (Auto) Cancelled Baso % (Auto) Cancelled Lymph # (Auto) Cancelled [place] # (Auto) Cancelled Eos # (Auto) Cancelled Baso # (Auto) Cancelled Abs Immat Gran (auto) Cancelled Absolute Neuts (auto) Cancelled Absolute Nucleated RBC 0.000 Nucleated RBC % (auto) 0.0 Neutrophils % (Manual) 77 H Band Neutrophils % 13 H Lymphocytes % (Manual) 5 L Monocytes % (Manual) 3 Metamyelocytes % 2 Myelocytes % Abs Neuts (Manual) 6.8 Lymphocytes # (Manual) 0.4 L Monocytes # (Manual) 0.2 Metamyelocytes # 0.2 Myelocytes # Toxic Granulation Toxic Vacuolation PRESENT Dohle Bodies Platelet Estimate NORMAL Plt Morphology Comment NORMAL RBC Morphology NORMAL Polychromasia Ovalocytes [place] Cells ESR D-Dimer High Sensitivty 2351 O2 Saturation ABG pH at Pt Temp ABG pCO2 at Pt Temp ABG pO2 at Pt Temp ABG HCO3 ABG Base Excess (Actual) VBG pH VBG pCO2 VBG pO2 VBG HCO3 VBG O2 Saturation VBG Base Excess Anion Gap 14 Estim Creat Clear Calc 24.8 Estimated GFR 19 POC Glucose 148 H Random Glucose 142 H Fasting Glucose Lactic Acid Lactic Acid F/U @ 2Hr Lactic Acid F/U @ 4Hr Calcium 7.8 L D Phosphorus Magnesium Total Bilirubin 1.0 AST 41 H ALT 23 Alkaline Phosphatase 46 Troponin I High Sens 3.2 C-Reactive Protein B-Natriuretic Peptide 40 Total Protein 4.8 L Albumin 2.7 L Urine Color Urine Appearance Urine pH Ur Specific Downs Urine Protein Urine Glucose (UA) Urine Ketones Urine Blood Urine Nitrite Ur Leukocyte Esterase Urine RBC Urine WBC Ur Squamous Epith Cells Urine Bacteria Hyaline Casts Granular Casts 06/02/23 06/02/23 06/02/23 16:04 16:57 19:33 MCV MCH MCHC RDW Plt Count MPV Immature Gran % (Auto) Neut % (Auto) Lymph % (Auto) [place] % (Auto) Eos % (Auto) Baso % (Auto) Lymph # (Auto) [place] # (Auto) Eos # (Auto) Baso # (Auto) Abs Immat Gran (auto) Absolute Neuts (auto) Absolute Nucleated RBC Nucleated RBC % (auto) Neutrophils % (Manual) Band Neutrophils % Lymphocytes % (Manual) Monocytes % (Manual) Metamyelocytes % Myelocytes % Abs Neuts (Manual) Lymphocytes # (Manual) Monocytes # (Manual) Metamyelocytes # Myelocytes # Toxic Granulation Toxic Vacuolation Dohle Bodies Platelet Estimate Plt Morphology Comment RBC Morphology Polychromasia Ovalocytes [place] Cells ESR D-Dimer High Sensitivty O2 Saturation 90.0 ABG pH at Pt Temp 7.30 L ABG pCO2 at Pt Temp 28 L ABG pO2 at Pt Temp 59 L ABG HCO3 14 L ABG Base Excess (Actual) -10.7 VBG pH VBG pCO2 VBG pO2 VBG HCO3 VBG O2 Saturation VBG Base Excess Anion Gap Estim Creat Clear Calc Estimated GFR POC Glucose 150 H Random Glucose Fasting Glucose Lactic Acid 3.9 H* Lactic Acid F/U @ 2Hr Lactic Acid F/U @ 4Hr Calcium Phosphorus Magnesium Total Bilirubin AST ALT Alkaline Phosphatase Troponin I High Sens C-Reactive Protein B-Natriuretic Peptide Total Protein Albumin Urine Color Urine Appearance Urine pH Ur Specific Downs Urine Protein Urine Glucose (UA) Urine Ketones Urine Blood Urine Nitrite Ur Leukocyte Esterase Urine RBC Urine WBC Ur Squamous Epith Cells Urine Bacteria Hyaline Casts Granular Casts 06/02/23 06/02/23 06/02/23 19:34 19:49 20:31 MCV 91.8 MCH 29.9 MCHC 32.6 RDW 14.5 Plt Count 137 L MPV 12.7 H Immature Gran % (Auto) Cancelled Neut % (Auto) Cancelled Lymph % (Auto) Cancelled [place] % (Auto) Cancelled Eos % (Auto) Cancelled Baso % (Auto) Cancelled Lymph # (Auto) Cancelled [place] # (Auto) Cancelled Eos # (Auto) Cancelled Baso # (Auto) Cancelled Abs Immat Gran (auto) Cancelled Absolute Neuts (auto) Cancelled Absolute Nucleated RBC 0.000 Nucleated RBC % (auto) 0.0 Neutrophils % (Manual) 46 Band Neutrophils % 32 H Lymphocytes % (Manual) 6 L Monocytes % (Manual) 3 Metamyelocytes % 10 Myelocytes % 3 Abs Neuts (Manual) 4.4 Lymphocytes # (Manual) 0.3 L Monocytes # (Manual) 0.2 Metamyelocytes # 0.6 Myelocytes # 0.2 Toxic Granulation PRESENT Toxic Vacuolation Dohle Bodies PRESENT Platelet Estimate NORMAL Plt Morphology Comment NORMAL RBC Morphology NOTED Polychromasia 1+ (0-2) Ovalocytes 1+ (5-14) [place] Cells 1+ (0-2) ESR D-Dimer High Sensitivty O2 Saturation 94.0 ABG pH at Pt Temp 7.45 ABG pCO2 at Pt Temp 37 ABG pO2 at Pt Temp 61 L ABG HCO3 26 ABG Base Excess (Actual) 2.6 VBG pH VBG pCO2 VBG pO2 VBG HCO3 VBG O2 Saturation VBG Base Excess Anion Gap 17 Estim Creat Clear Calc 22.4 Estimated GFR 17 POC Glucose 116 H Random Glucose 132 H Fasting Glucose Lactic Acid Lactic Acid F/U @ 2Hr Lactic Acid F/U @ 4Hr Calcium 7.9 L Phosphorus 3.1 Magnesium 1.4 L* Total Bilirubin 1.4 H AST 45 H ALT 23 Alkaline Phosphatase 42 Troponin I High Sens C-Reactive Protein 32.42 H B-Natriuretic Peptide Total Protein 5.5 L Albumin 3.5 Urine Color Urine Appearance Urine pH Ur Specific Downs Urine Protein Urine Glucose (UA) Urine Ketones Urine Blood Urine Nitrite Ur Leukocyte Esterase Urine RBC Urine WBC Ur Squamous Epith Cells Urine Bacteria Hyaline Casts Granular Casts 06/02/23 06/02/23 06/03/23 21:52 23:22 00:21 MCV MCH MCHC RDW Plt Count MPV Immature Gran % (Auto) Neut % (Auto) Lymph % (Auto) [place] % (Auto) Eos % (Auto) Baso % (Auto) Lymph # (Auto) [place] # (Auto) Eos # (Auto) Baso # (Auto) Abs Immat Gran (auto) Absolute Neuts (auto) Absolute Nucleated RBC Nucleated RBC % (auto) Neutrophils % (Manual) Band Neutrophils % Lymphocytes % (Manual) Monocytes % (Manual) Metamyelocytes % Myelocytes % Abs Neuts (Manual) Lymphocytes # (Manual) Monocytes # (Manual) Metamyelocytes # Myelocytes # Toxic Granulation Toxic Vacuolation Dohle Bodies Platelet Estimate Plt Morphology Comment RBC Morphology Polychromasia Ovalocytes [place] Cells ESR 12 D-Dimer High Sensitivty O2 Saturation ABG pH at Pt Temp ABG pCO2 at Pt Temp ABG pO2 at Pt Temp ABG HCO3 ABG Base Excess (Actual) VBG pH VBG pCO2 VBG pO2 VBG HCO3 VBG O2 Saturation VBG Base Excess Anion Gap 17 Estim Creat Clear Calc 22.4 Estimated GFR 17 POC Glucose Random Glucose 164 H Fasting Glucose Lactic Acid Lactic Acid F/U @ 2Hr 3.2 H* Lactic Acid F/U @ 4Hr 4.0 H* Calcium 7.8 L Phosphorus Magnesium Total Bilirubin 1.5 H AST 56 H ALT 25 Alkaline Phosphatase 43 Troponin I High Sens C-Reactive Protein B-Natriuretic Peptide Total Protein 5.0 L Albumin 3.2 L Urine Color Dark Yellow Urine Appearance Turbid Urine pH 5.0 Ur Specific Downs 1.025 Urine Protein 30 (1+) H Urine Glucose (UA) Negative Urine Ketones Negative Urine Blood Moderate (2+) H Urine Nitrite Negative Ur Leukocyte Esterase Negative Urine RBC 0-2 Urine WBC 0-5 Ur Squamous Epith Cells 3-5 Urine Bacteria Trace Hyaline Casts 11-20 Granular Casts Present 06/03/23 06/03/23 06/03/23 06:06 06:07 07:42 MCV 89.7 MCH 29.6 MCHC 33.0 RDW 14.5 Plt Count 113 L MPV 13.2 H Immature Gran % (Auto) Neut % (Auto) Lymph % (Auto) [place] % (Auto) Eos % (Auto) Baso % (Auto) Lymph # (Auto) [place] # (Auto) Eos # (Auto) Baso # (Auto) Abs Immat Gran (auto) Absolute Neuts (auto) Absolute Nucleated RBC 0.000 Nucleated RBC % (auto) 0.0 Neutrophils % (Manual) Band Neutrophils % Lymphocytes % (Manual) Monocytes % (Manual) Metamyelocytes % Myelocytes % Abs Neuts (Manual) Lymphocytes # (Manual) Monocytes # (Manual) Metamyelocytes # Myelocytes # Toxic Granulation Toxic Vacuolation Dohle Bodies Platelet Estimate Plt Morphology Comment RBC Morphology Polychromasia Ovalocytes [place] Cells ESR D-Dimer High Sensitivty O2 Saturation ABG pH at Pt Temp ABG pCO2 at Pt Temp ABG pO2 at Pt Temp ABG HCO3 ABG Base Excess (Actual) VBG pH 7.29 L VBG pCO2 43 VBG pO2 56 VBG HCO3 21 L VBG O2 Saturation 87.0 VBG Base Excess -5.0 Anion Gap 16 Estim Creat Clear Calc 21.2 Estimated GFR 15 POC Glucose 155 H Random Glucose Fasting Glucose 155 H Lactic Acid Lactic Acid F/U @ 2Hr Lactic Acid F/U @ 4Hr Calcium 7.4 L Phosphorus 3.7 Magnesium 1.5 L Total Bilirubin 1.5 H AST 46 H ALT 20 Alkaline Phosphatase 35 L Troponin I High Sens C-Reactive Protein B-Natriuretic Peptide Total Protein 4.9 L Albumin 3.4 L Urine Color Urine Appearance Urine pH Ur Specific Downs Urine Protein Urine Glucose (UA) Urine Ketones Urine Blood Urine Nitrite Ur Leukocyte Esterase Urine RBC Urine WBC Ur Squamous Epith Cells Urine Bacteria Hyaline Casts Granular Casts <JAIME Griffin Last Filed: 06/03/23 08:33> Microbiology Microbiology Results: Microbiology 06/03/23 04:15 Gram Stain - Final Abdominal Fluid Routine Culture - Preliminary <JAIME Griffin Last Filed: 06/03/23 08:33> Procedures Date of Service Date of Service: 06/03/23 <JAIME Griffin Last Filed: 06/03/23 08:33> 06/03/23 <Bon Hanks MD - Last Filed: 06/03/23 08:52> Progress Note: A&P Assessment and plan (1) Perforated ulcer: Status: Acute <Osiris Koroma PA-C - Last Filed: 06/03/23 08:33> Assessment and Plan: history reviewed pt remains on pressors on vent abd soft care as per ICU team for now seen and examined independently <Bon Hanks MD - Last Filed: 06/03/23 08:52> Assessment and Plan: S/p exploratory laparotomy, plication of ulcer at Pamela-en-Y anastomosis for perforated ulcer at Pamela-en-Y anastomosis this morning. Remains on vent, pressors. Cont IV PPI, IV abx. Cont restorative measures, remainder of care per ICU team. <Osiris Koroma PA-C - Last Filed: 06/03/23 08:33> Time Spent With Patient Time: Total time managing care of this patient today ____ minutes. <Osiris Koroma PA-C - Last Filed: 06/03/23 08:33> Quality Stroke Does the patient have a stroke diagnosis?: No <Osiris Koroma PA-C - Last Filed: 06/03/23 08:33> VTE Prior VTE?: No <Osiris Koroma PA-C - Last Filed: 06/03/23 08:33> VTE Risk Level:: Surgical - low <Osiris Koroma PA-C - Last Filed: 06/03/23 08:33> VTE Device Contraindication: N/A - Device Ordered <Osiris Koroma PA-C - Last Filed: 06/03/23 08:33> VTE Drug Contraindication: Treatment Not Indicated <Osiris Koroma PA-C - Last Filed: 06/03/23 08:33>
--- NOTE | 2023-06-03 08:44 | PM.CCPN ---
Subjective Subjective Date of Service: 06/03/23 Critical Care Time (minutes): 65 Comment: Had uneventful overnight stay. Patient rapidly decompensated, needing intubation, central line placement and vasopressor support CT abdomen with oral contrast showed leakage of the contrast concerning for gut perforation, while stick and for emergent laparotomy and the perforation is seen now Continues to be critically ill on ventilator support and vasopressor support Physical Exam Vital Signs: Vital Signs: Last Vital Signs Temp 99.7 F 06/03/23 08:00 Pulse 102 H 06/03/23 08:16 Resp 21 H 06/03/23 08:00 BP 105/63 06/03/23 08:16 Pulse Ox 94 06/03/23 08:00 O2 Del Method Mechanical Ventil ation 06/03/23 08:00 O2 Flow Rate 5 06/02/23 19:58 FiO2 40 06/03/23 08:32 BMI result Body Mass Index 35.9 Const: General: acute distress, confusion and intoxicated appearing Orientation/consciousness: confusion HEENT: Head: Yes normal to inspection and Yes normocephalic Resp: Other: Decreased air entry in the lung bases, bilateral air entry equal, occasional crackles heard in bilateral lung bases Cardio: Other: Normal S1-S2 heard, no murmur GI: Other: Laparotomy site looks okay, slight tenderness present, slight distention does not Inspection: Yes normal to inspection : Other: Normal on inspection, has Segovia catheter Neuro: Other: Sedated with propofol, no focal deficits General: confusion Objective Data Labs 06/03/23 06:07 06/03/23 06:07 Labs: Laboratory Results - last 24 hr 06/02/23 06/02/23 06/02/23 09:15 10:54 13:41 WBC 7.6 RBC 4.56 Hgb 13.6 Hct 41.2 MCV 90.4 MCH 29.8 MCHC 33.0 RDW 14.1 Plt Count 169 MPV 12.9 H Immature Gran % (Auto) Cancelled Neut % (Auto) Cancelled Lymph % (Auto) Cancelled [place] % (Auto) Cancelled Eos % (Auto) Cancelled Baso % (Auto) Cancelled Lymph # (Auto) Cancelled [place] # (Auto) Cancelled Eos # (Auto) Cancelled Baso # (Auto) Cancelled Abs Immat Gran (auto) Cancelled Absolute Neuts (auto) Cancelled Absolute Nucleated RBC 0.000 Nucleated RBC % (auto) 0.0 Neutrophils % (Manual) 77 H Band Neutrophils % 13 H Lymphocytes % (Manual) 5 L Monocytes % (Manual) 3 Metamyelocytes % 2 Myelocytes % Abs Neuts (Manual) 6.8 Lymphocytes # (Manual) 0.4 L Monocytes # (Manual) 0.2 Metamyelocytes # 0.2 Myelocytes # Toxic Granulation Toxic Vacuolation PRESENT Dohle Bodies Platelet Estimate NORMAL Plt Morphology Comment NORMAL RBC Morphology NORMAL Polychromasia Ovalocytes [place] Cells ESR D-Dimer High Sensitivty 2351 O2 Saturation ABG pH at Pt Temp ABG pCO2 at Pt Temp ABG pO2 at Pt Temp ABG HCO3 ABG Base Excess (Actual) VBG pH VBG pCO2 VBG pO2 VBG HCO3 VBG O2 Saturation VBG Base Excess Sodium 138 Potassium 3.6 Chloride 113 H Carbon Dioxide 15 L Anion Gap 14 BUN 19 H Creatinine 2.57 H Estim Creat Clear Calc 24.8 Estimated GFR 19 POC Glucose 148 H Random Glucose 142 H Fasting Glucose Lactic Acid Lactic Acid F/U @ 2Hr Lactic Acid F/U @ 4Hr Calcium 7.8 L D Phosphorus Magnesium Total Bilirubin 1.0 AST 41 H ALT 23 Alkaline Phosphatase 46 Troponin I High Sens 3.2 C-Reactive Protein B-Natriuretic Peptide 40 Total Protein 4.8 L Albumin 2.7 L Urine Color Urine Appearance Urine pH Ur Specific [place] Urine Protein Urine Glucose (UA) Urine Ketones Urine Blood Urine Nitrite Ur Leukocyte Esterase Urine RBC Urine WBC Ur Squamous Epith Cells Urine Bacteria Hyaline Casts Granular Casts 06/02/23 06/02/23 06/02/23 16:04 16:57 19:33 WBC RBC Hgb Hct MCV MCH MCHC RDW Plt Count MPV Immature Gran % (Auto) Neut % (Auto) Lymph % (Auto) [place] % (Auto) Eos % (Auto) Baso % (Auto) Lymph # (Auto) [place] # (Auto) Eos # (Auto) Baso # (Auto) Abs Immat Gran (auto) Absolute Neuts (auto) Absolute Nucleated RBC Nucleated RBC % (auto) Neutrophils % (Manual) Band Neutrophils % Lymphocytes % (Manual) Monocytes % (Manual) Metamyelocytes % Myelocytes % Abs Neuts (Manual) Lymphocytes # (Manual) Monocytes # (Manual) Metamyelocytes # Myelocytes # Toxic Granulation Toxic Vacuolation Dohle Bodies Platelet Estimate Plt Morphology Comment RBC Morphology Polychromasia Ovalocytes [place] Cells ESR D-Dimer High Sensitivty O2 Saturation 90.0 ABG pH at Pt Temp 7.30 L ABG pCO2 at Pt Temp 28 L ABG pO2 at Pt Temp 59 L ABG HCO3 14 L ABG Base Excess (Actual) -10.7 VBG pH VBG pCO2 VBG pO2 VBG HCO3 VBG O2 Saturation VBG Base Excess Sodium Potassium Chloride Carbon Dioxide Anion Gap BUN Creatinine Estim Creat Clear Calc Estimated GFR POC Glucose 150 H Random Glucose Fasting Glucose Lactic Acid 3.9 H* Lactic Acid F/U @ 2Hr Lactic Acid F/U @ 4Hr Calcium Phosphorus Magnesium Total Bilirubin AST ALT Alkaline Phosphatase Troponin I High Sens C-Reactive Protein B-Natriuretic Peptide Total Protein Albumin Urine Color Urine Appearance Urine pH Ur Specific [place] Urine Protein Urine Glucose (UA) Urine Ketones Urine Blood Urine Nitrite Ur Leukocyte Esterase Urine RBC Urine WBC Ur Squamous Epith Cells Urine Bacteria Hyaline Casts Granular Casts 06/02/23 06/02/23 06/02/23 19:34 19:49 20:31 WBC 5.7 RBC 4.28 Hgb 12.8 Hct 39.3 MCV 91.8 MCH 29.9 MCHC 32.6 RDW 14.5 Plt Count 137 L MPV 12.7 H Immature Gran % (Auto) Cancelled Neut % (Auto) Cancelled Lymph % (Auto) Cancelled [place] % (Auto) Cancelled Eos % (Auto) Cancelled Baso % (Auto) Cancelled Lymph # (Auto) Cancelled [place] # (Auto) Cancelled Eos # (Auto) Cancelled Baso # (Auto) Cancelled Abs Immat Gran (auto) Cancelled Absolute Neuts (auto) Cancelled Absolute Nucleated RBC 0.000 Nucleated RBC % (auto) 0.0 Neutrophils % (Manual) 46 Band Neutrophils % 32 H Lymphocytes % (Manual) 6 L Monocytes % (Manual) 3 Metamyelocytes % 10 Myelocytes % 3 Abs Neuts (Manual) 4.4 Lymphocytes # (Manual) 0.3 L Monocytes # (Manual) 0.2 Metamyelocytes # 0.6 Myelocytes # 0.2 Toxic Granulation PRESENT Toxic Vacuolation Dohle Bodies PRESENT Platelet Estimate NORMAL Plt Morphology Comment NORMAL RBC Morphology NOTED Polychromasia 1+ (0-2) Ovalocytes 1+ (5-14) [place] Cells 1+ (0-2) ESR D-Dimer High Sensitivty O2 Saturation 94.0 ABG pH at Pt Temp 7.45 ABG pCO2 at Pt Temp 37 ABG pO2 at Pt Temp 61 L ABG HCO3 26 ABG Base Excess (Actual) 2.6 VBG pH VBG pCO2 VBG pO2 VBG HCO3 VBG O2 Saturation VBG Base Excess Sodium 138 Potassium 3.7 Chloride 112 H Carbon Dioxide 13 L Anion Gap 17 BUN 23 H Creatinine 2.84 H Estim Creat Clear Calc 22.4 Estimated GFR 17 POC Glucose 116 H Random Glucose 132 H Fasting Glucose Lactic Acid Lactic Acid F/U @ 2Hr Lactic Acid F/U @ 4Hr Calcium 7.9 L Phosphorus 3.1 Magnesium 1.4 L* Total Bilirubin 1.4 H AST 45 H ALT 23 Alkaline Phosphatase 42 Troponin I High Sens C-Reactive Protein 32.42 H B-Natriuretic Peptide Total Protein 5.5 L Albumin 3.5 Urine Color Urine Appearance Urine pH Ur Specific [place] Urine Protein Urine Glucose (UA) Urine Ketones Urine Blood Urine Nitrite Ur Leukocyte Esterase Urine RBC Urine WBC Ur Squamous Epith Cells Urine Bacteria Hyaline Casts Granular Casts 06/02/23 06/02/23 06/03/23 21:52 23:22 00:21 WBC RBC Hgb Hct MCV MCH MCHC RDW Plt Count MPV Immature Gran % (Auto) Neut % (Auto) Lymph % (Auto) [place] % (Auto) Eos % (Auto) Baso % (Auto) Lymph # (Auto) [place] # (Auto) Eos # (Auto) Baso # (Auto) Abs Immat Gran (auto) Absolute Neuts (auto) Absolute Nucleated RBC Nucleated RBC % (auto) Neutrophils % (Manual) Band Neutrophils % Lymphocytes % (Manual) Monocytes % (Manual) Metamyelocytes % Myelocytes % Abs Neuts (Manual) Lymphocytes # (Manual) Monocytes # (Manual) Metamyelocytes # Myelocytes # Toxic Granulation Toxic Vacuolation Dohle Bodies Platelet Estimate Plt Morphology Comment RBC Morphology Polychromasia Ovalocytes [place] Cells ESR 12 D-Dimer High Sensitivty O2 Saturation ABG pH at Pt Temp ABG pCO2 at Pt Temp ABG pO2 at Pt Temp ABG HCO3 ABG Base Excess (Actual) VBG pH VBG pCO2 VBG pO2 VBG HCO3 VBG O2 Saturation VBG Base Excess Sodium 141 Potassium 3.4 Chloride 107 Carbon Dioxide 20 L Anion Gap 17 BUN 27 H Creatinine 2.85 H Estim Creat Clear Calc 22.4 Estimated GFR 17 POC Glucose Random Glucose 164 H Fasting Glucose Lactic Acid Lactic Acid F/U @ 2Hr 3.2 H* Lactic Acid F/U @ 4Hr 4.0 H* Calcium 7.8 L Phosphorus Magnesium Total Bilirubin 1.5 H AST 56 H ALT 25 Alkaline Phosphatase 43 Troponin I High Sens C-Reactive Protein B-Natriuretic Peptide Total Protein 5.0 L Albumin 3.2 L Urine Color Dark Yellow Urine Appearance Turbid Urine pH 5.0 Ur Specific [place] 1.025 Urine Protein 30 (1+) H Urine Glucose (UA) Negative Urine Ketones Negative Urine Blood Moderate (2+) H Urine Nitrite Negative Ur Leukocyte Esterase Negative Urine RBC 0-2 Urine WBC 0-5 Ur Squamous Epith Cells 3-5 Urine Bacteria Trace Hyaline Casts 11-20 Granular Casts Present 06/03/23 06/03/23 06/03/23 06:06 06:07 07:42 WBC 3.8 L RBC 3.88 L Hgb 11.5 L Hct 34.8 L MCV 89.7 MCH 29.6 MCHC 33.0 RDW 14.5 Plt Count 113 L MPV 13.2 H Immature Gran % (Auto) Neut % (Auto) Lymph % (Auto) [place] % (Auto) Eos % (Auto) Baso % (Auto) Lymph # (Auto) [place] # (Auto) Eos # (Auto) Baso # (Auto) Abs Immat Gran (auto) Absolute Neuts (auto) Absolute Nucleated RBC 0.000 Nucleated RBC % (auto) 0.0 Neutrophils % (Manual) Band Neutrophils % Lymphocytes % (Manual) Monocytes % (Manual) Metamyelocytes % Myelocytes % Abs Neuts (Manual) Lymphocytes # (Manual) Monocytes # (Manual) Metamyelocytes # Myelocytes # Toxic Granulation Toxic Vacuolation Dohle Bodies Platelet Estimate Plt Morphology Comment RBC Morphology Polychromasia Ovalocytes [place] Cells ESR D-Dimer High Sensitivty O2 Saturation ABG pH at Pt Temp ABG pCO2 at Pt Temp ABG pO2 at Pt Temp ABG HCO3 ABG Base Excess (Actual) VBG pH 7.29 L VBG pCO2 43 VBG pO2 56 VBG HCO3 21 L VBG O2 Saturation 87.0 VBG Base Excess -5.0 Sodium 141 Potassium 3.3 Chloride 106 Carbon Dioxide 22 Anion Gap 16 BUN 29 H Creatinine 3.08 H Estim Creat Clear Calc 21.2 Estimated GFR 15 POC Glucose 155 H Random Glucose Fasting Glucose 155 H Lactic Acid Lactic Acid F/U @ 2Hr Lactic Acid F/U @ 4Hr Calcium 7.4 L Phosphorus 3.7 Magnesium 1.5 L Total Bilirubin 1.5 H AST 46 H ALT 20 Alkaline Phosphatase 35 L Troponin I High Sens C-Reactive Protein B-Natriuretic Peptide Total Protein 4.9 L Albumin 3.4 L Urine Color Urine Appearance Urine pH Ur Specific [place] Urine Protein Urine Glucose (UA) Urine Ketones Urine Blood Urine Nitrite Ur Leukocyte Esterase Urine RBC Urine WBC Ur Squamous Epith Cells Urine Bacteria Hyaline Casts Granular Casts Microbiology Microbiology Results: Microbiology 06/03/23 04:15 Abdominal Fluid Gram Stain - Final 06/03/23 04:15 Abdominal Fluid Routine Culture - Preliminary Progress Note: A&P Assessment and plan (1) Acute hypoxic respiratory failure: Status: Acute (2) Shock: Status: Acute (3) Acute kidney injury: Status: Acute (4) Acute encephalopathy: Status: Acute (5) Bowel perforation: Status: Acute Plan Claudette Stapleton is a 62-year-old lady with past medical history of hypertension, diabetes, neuropathy, history of pulmonary embolism in the past anticoagulation discontinued by PCP in March 2023, she had severe claudication of her lower extremities due to thoracic radiculopathy and spondylolisthesis of lumbar spine. She was admitted to the hospital for L3-L4 lumbar fusion which went uneventful on 05/31/2023. Had episodes of hypotension overnight treated with IV fluids, new onset JOSE MANUEL with creatinine increasing up to 2.6, with metabolic acidosis bicarb down to 15. She was also hypoxic due to very poor respiratory efforts possibly due to severe abdominal pain. She underwent CT of the abdomen which showed pneumoperitoneum versus possibly secondary to surgery. Medical ICU is consulted for management of altered sensorium, JOSE MANUEL, metabolic acidosis, hypotension and hypoxia Neuro: Acute encephalopathy: Secondary to metabolic encephalopathy from ongoing multiorgan failure, however can not rule out gabapentin toxicity in the setting of JOSE MANUEL. Clonazepam, gabapentin, pregabalin has been discontinued. Currently on fentanyl drip for analgesia and propofol for sedation, RASS -4. ICU delirium precautions Cardio: Septic shock: From perforated bowel, currently on Levophed support titrate to keep the map of 65 mm Hg. Bedside echo showed normal LV function slightly dilated RV, IVC 1.8 cm noncollapsible. Continue LR at 150 cc/hour given her bowel perf she needs aggressive volume resuscitation History of Pulmonary embolism: Has a history of pulmonary embolism, anticoagulation stopped By PCP in March 2023 Has elevated D-dimer, right heart dilation, dilated IVC. But bedside Doppler of the lower extremity did not show any occlusive clots Respiratory: Acute hypoxemic respiratory failure due to poor respiratory efforts from severe abdominal pain. Currently intubated and on ventilator support, PRVC mode FiO2 50%, peep 5, tidal volume 330, respiratory rate 14; peak inspiratory pressures and plateau pressures under the curve. Maintaining saturations well, pCO2 normal, pH okay. We will continue her on the same ventilator mode with no plans for extubation today GI: CT with oral contrast showed extravasation of the concerning for perforation was emergently taken to the operating room overnight for laprotomy.. Apparently the perforation was around the site of previous surgery On Zosyn for antibiotic coverage, will add micafungin Acute kidney injury: Baseline creatinine around 0.8, increased to 3.08 Possibly due to ATN as a component of multiorgan failure including multiple episodes of hypotension No indication for renal replacement therapy Closely monitor I's and O's Severe metabolic acidosis: Secondary to severe JOSE MANUEL Improved with bicarbonate pushes and drip, we will start patient on LR drip at 150 cc an hour Infectious disease: pancultures pending on Zosyn for bowel perforation, we will add micafungin We will get MRSA is positive we will add MRSA coverage Endocrine: Blood sugars are under control Sliding scale insulin as needed Lines: right IJ TLC placed on 06/03/2023 Seg[place]ia catheter Prophylaxis: Heparin, pantoprazole Bedside ultrasound heart: Normal LV systolic function, dilated RV, dilated IVC 1.8 cm noncollapsible Bedside ultrasound lungs: Very poor movement of the lung bases, atelectatic lung bases bilaterally. No B lines seen anteriorly Bedside Doppler of lower extremities: Did not see any occlusive venous clots in bilateral femoral and popliteal veins Quality Stroke Does the patient have a stroke diagnosis?: No VTE Prior VTE?: No VTE Risk Level:: Surgical - low VTE Device Contraindication: N/A - Device Ordered VTE Drug Contraindication: Treatment Not Indicated
--- NOTE | 2023-06-03 09:00 | PM.CNNEP ---
History of Present Illness Reason for Consult Consult date: 06/04/23 Chief Complaint Chief complaint: d/p l3-4 oblique lumbar interbody fusion History of Present Illness Narrative: 62 years old lady with asthma, DMII, neuropathy among others who presented for elective L3-4 Discectomy by neurosurgery developed hypoxia this morning. The patient reports significant pain in her back. feels her breathing is altered but reported also having difficulties breathing for a long time now. denies any chest pain, palpitations, dyspnea on rest, sweating, leg pain or swelling. Noted this morning to drop her O2 requiring 2 L of O2 to keep it in 90s. She had the surgery [address] abdomen showing evidence of atelactasis. D-Dimer elevated at 2000 on 06/02/23 - developed acute abdomen and found to have a perforated viscus. Underwent explorative laporotomy Now in ICU requiring pressors Baseline creatinine was < 1 and now at >3 and hence the consultation Review of Systems Review of Systems Yes unobtainable due to endotracheal tube PMFSH Past Medical History Medical History Arthritis GERD (gastroesophageal reflux disease) Depression Polysubstance abuse Osteoarthritis Sleep apnea Elevated cholesterol Bipolar 1 disorder RLS (restless legs syndrome) Asthma HTN (hypertension) Pulmonary embolism Peripheral neuropathy Diabetes Surgical History Surgical History H/O colonoscopy History of total right knee replacement Hx of tonsillectomy Hx of tubal ligation Hx of hysterectomy History of sleeve gastrectomy Social History Social History Household Members: Spouse Housing: House Are you a primary animal care provider to a significant other at home: No Do you presently have visiting nurse or other home services: No Patient Tobacco Use Status: Never used Tobacco service: No Meds Allergies Allergy/AdvReac Type Severity Reaction Status Date / Time cephalexin [From Keflex] Allergy Intermediate Swelling Verified 04/28/23 11:05 glipizide Allergy Intermediate Rash Verified 04/28/23 11:05 metformin Allergy Intermediate Itching Verified 04/28/23 11:05 morphine Allergy Intermediate Nausea and Verified 04/29/23 12:35 Vomiting/ineffective ropinirole [From Requip] Allergy Intermediate Nausea and Verified 04/28/23 11:05 Vomiting doxycycline Allergy Hives Verified 05/31/23 09:14 CLARITZA Inhibitors AdvReac Intermediate Cough Verified 04/28/23 11:05 Active Medications: Current Medications Albuterol Sulfate (Albuterol Sulfate (0.083%) 2.5 Mg/3 Ml Vial.Neb) 2.5 mg INHALE ONCE PRN PRN Reason: Shortness of Breath/Wheezing Albuterol Sulfate (Albuterol Sulfate 90 Mcg 8 Gm Inhaler) 2 puff INHALE Q6H PRN PRN Reason: Shortness Of Breath Albuterol/Ipratropium (Albuterol/Iprat 2.5/0.5mg 3 Ml Ampul.Neb) 3 ml INHALE RQ4H WHILE AWAKE [facility] Last Admin: 06/02/23 21:04 Dose: Not Given Clonazepam (Clonazepam 1 Mg Tablet) 1 mg PO TID [facility] Last Admin: 06/02/23 14:06 Dose: Not Given Fluticasone/Vilanterol (Fluticasone/Vilanterol 200/25 Blst.W.Dev) 1 puff INHALE RDAILY [facility] Last Admin: 06/02/23 08:43 Dose: 1 puff Furosemide (Furosemide 20 Mg Tablet) 20 mg PO DAILY [facility]; Protocol Last Admin: 06/02/23 11:05 Dose: Not Given Gabapentin (Gabapentin 400 Mg Capsule) 800 mg PO BID [facility] Last Admin: 06/02/23 11:03 Dose: 800 mg Glucose (Glucose Gel 15 Gm Gel..Gram.) 15 gm PO Q15M PRN; Protocol PRN Reason: per Hypoglycemia Standing Ord. Acetaminophen (Ofirmev) 1,000 mg in 100 mls @ 400 mls/hr IV Q6H [facility] Last Infusion: 06/03/23 07:51 Dose: Infused Dextrose (D10) 250 mls @ 750 mls/hr IV Q15M PRN; Protocol PRN Reason: per Hypoglycemia Standing Ord. Piperacillin Sod/Tazobactam (Sod 3.375 gm/ Sodium Chloride) 50 mls @ 100 mls/hr IV Q6H [facility] Last Infusion: 06/03/23 06:31 Dose: Infused Sodium Bicarbonate 150 meq/ (Dextrose) 1,000 mls @ 100 mls/hr IV .Q10H [facility] Last Admin: 06/03/23 03:53 Dose: Not Given Propofol (Diprivan) 1,000 mg in 100 mls @ 0 mls/hr IVCONT .Q0M [facility]; Protocol Last Titration: 06/03/23 08:15 Dose: 30 mcg/kg/min, 16.49 mls/hr Norepinephrine Bitartrate (Levophed) 8 mg in 250 mls @ 0 mls/hr IV .Q0M [facility]; Protocol Last Titration: 06/03/23 08:16 Dose: 0.18 mcg/kg/min, 30.92 mls/hr Fentanyl (Sublimaze/Ns) 1,000 mcg in 100 mls @ 0 mls/hr IVCONT .Q0M [facility]; Protocol Last Titration: 06/03/23 05:45 Dose: 50 mcg/hr, 5 mls/hr Insulin Human Lispro (Insulin Lispro 100 Unit/Ml 3 Ml Vial) 0 unit SUBCUT QIDACHS [facility]; Protocol Last Admin: 06/03/23 07:45 Dose: 2 unit Lactulose (Lactulose 20 Gm/30 Ml Solution) 10 gm PO DAILY [facility] Last Admin: 06/02/23 11:04 Dose: 10 gm Naloxone HCl (Naloxone Hcl 0.4 Mg/Ml Vial) 0.2 mg IVPUSH Q2M PRN PRN Reason: Excessive sedation or RR < 8 Non-Formulary Medication (Bupropion Hcl) 100 mg PO QAM [facility] Ondansetron HCl (Ondansetron Hcl 4 Mg/2 Ml Vial) 4 mg IVPUSH Q6H PRN PRN Reason: Nausea and Vomiting Pantoprazole Sodium (Pantoprazole Sodium 40 Mg/10 Ml Vial) 40 mg IVPUSH BID@0630,1630 [facility] Last Admin: 06/03/23 06:04 Dose: 40 mg Pantoprazole Sodium (Pantoprazole Sodium 40 Mg/10 Ml Vial) 40 mg IVPUSH DAILY@0630 [facility] Pharmacy Consult (Consult Rx Vancomycin Dosing) 1 each MISCELLANE DAILY PRN PRN Reason: Consult order Polyethylene Glycol (Polyethylene Glycol 3350 17 Gm Powd.Pack) 17 gm PO DAILY PRN PRN Reason: constipation Pramipexole Dihydrochloride (Pramipexole Di-Hcl 0.25 Mg Tablet) 0.25 mg PO DAILY [facility] Last Admin: 06/02/23 11:04 Dose: 0.25 mg Senna (Sennosides 8.6 Mg Tablet) 8.6 mg PO BEDTIME [facility] Last Admin: 06/02/23 22:20 Dose: Not Given Topiramate (Topiramate 100 Mg Tablet) 100 mg PO BID [facility] Last Admin: 06/02/23 22:20 Dose: Not Given Vortioxetine (Vortioxetine Hydrobromide 20 Mg Tablet) 20 mg PO DAILY [facility] Last Admin: 06/02/23 11:04 Dose: 20 mg Home Medications ?Medication ?Instructions ?Recorded ?Confirmed ?Last Taken ?Type albuterol sulfate 90 mcg/actuation 2 puff inhalation Q6H PRN 04/28/23 04/29/23 Unknown History aerosol inhaler (Ventolin HFA) Shortness Of Breath aspirin 81 mg tablet,delayed 81 mg PO DAILY 04/28/23 04/28/23 04/20/23 History release budesonide-formoterol HFA 160 2 puff inhalation BID 04/28/23 04/29/23 05/31/23 07:30 History mcg-4.5 mcg/actuation aerosol inhaler (Symbicort) bupropion HCl 100 mg tablet,12 hr 100 mg PO QAM 04/28/23 04/28/23 05/30/23 History sustained-release [id number] 1 tab PO Q6H PRN pain 04/28/23 04/28/23 Unknown History 50 mg-325 mg-40 mg tablet clonazepam 1 mg tablet 1 mg PO TID 04/28/23 04/28/23 05/30/23 History furosemide 40 mg tablet 20 mg PO DAILY 04/28/23 04/28/23 05/30/23 History gabapentin 800 mg tablet 800 mg PO BID 04/28/23 04/28/23 05/31/23 07:30 History hydroxyzine HCl 10 mg tablet 10 mg PO TID PRN Anxiety 04/28/23 04/28/23 Unknown History insulin aspart U-100 100 unit/mL 4 - 30 unit subcut TID 04/28/23 04/28/23 05/30/23 History (3 mL) subcutaneous pen lorazepam 1 mg tablet 1 mg PO TID 04/28/23 04/28/23 05/31/23 07:30 History melatonin 10 mg-lemon balm leaf 1 tab PO BEDTIME 04/28/23 04/28/23 Unknown History extract 1 mg tablet metoprolol tartrate 25 mg tablet 25 mg PO DAILY 04/28/23 04/28/23 05/31/23 07:30 History potassium chloride 10 mEq 10 meq PO DAILY 04/28/23 05/30/23 History tablet,extended release pramipexole 0.25 mg tablet 0.25 mg PO DAILY 04/28/23 04/28/23 05/30/23 History pregabalin 150 mg capsule 150 mg PO BID 04/28/23 04/28/23 Unknown History semaglutide 0.25 mg or 0.5 mg (2 0.5 mg subcut QWEEK 04/28/23 04/28/23 05/20/23 History mg/3 mL) subcutaneous pen injector (Ozempic) topiramate 100 mg tablet 100 mg PO BID 04/28/23 04/28/23 05/30/23 History trazodone 100 mg tablet 300 mg PO BEDTIME 04/28/23 04/28/23 05/30/23 History vortioxetine 20 mg tablet 20 mg PO DAILY 04/28/23 04/28/23 05/30/23 History (Trintellix) lactulose 10 gram/15 mL oral 15 ml PO QAM 04/29/23 04/29/23 05/30/23 History solution pantoprazole 40 mg tablet,delayed 40 mg PO DAILY 04/29/23 04/29/23 05/31/23 07:30 History release polyethylene glycol 3350 17 gram 17 g PO DAILY PRN constipation 04/29/23 04/29/23 Unknown History oral powder packet sennosides 8.6 mg tablet (senna) 8.6 mg PO BEDTIME 04/29/23 04/29/23 Unknown History Physical Exam Vital Signs: Last Vital Signs Temp 99.7 F 06/03/23 08:00 Pulse 102 H 06/03/23 08:16 Resp 21 H 06/03/23 08:00 BP 105/63 06/03/23 08:16 Pulse Ox 94 06/03/23 08:00 O2 Del Method Mechanical Ventilation 06/03/23 08:00 O2 Flow Rate 5 06/02/23 19:58 FiO2 40 06/03/23 08:32 BMI result Body Mass Index 35.9 Const General: in distress and ill appearing Neck Neck: Yes supple Resp Auscultation: clear to auscultation bilaterally Cardio Palpation: no palpable S3 Heart sounds: no rubs GI Palpation (GI): Soft to palpation Auscultation: normal bowel sounds Neuro Motor exam (neuro): no asterixis Results Lab Results 06/04/23 04:48 06/04/23 04:48 Lab results: Chemistry 06/02/23 06/02/23 06/03/23 13:41 19:34 00:21 Sodium 138 138 141 Potassium 3.6 3.7 3.4 Carbon Dioxide 15 L 13 L 20 L BUN 19 H 23 H 27 H Creatinine 2.57 H 2.84 H 2.85 H Calcium 7.8 L D 7.9 L 7.8 L Phosphorus 3.1 06/03/23 06:07 Sodium 141 Potassium 3.3 Carbon Dioxide 22 BUN 29 H Creatinine 3.08 H Calcium 7.4 L Phosphorus 3.7 Hematology 06/02/23 06/02/23 06/03/23 09:15 19:34 06:07 WBC 7.6 5.7 3.8 L Hgb 13.6 12.8 11.5 L Plt Count 169 137 L 113 L Urinalysis 06/02/23 23:22 Urine Color Dark Yellow Urine Appearance Turbid Urine pH 5.0 Ur Specific [place] 1.025 Urine Protein 30 (1+) H Urine Glucose (UA) Negative Urine Ketones Negative Urine Blood Moderate (2+) H Urine Nitrite Negative Ur Leukocyte Esterase Negative Urine RBC 0-2 Urine WBC 0-5 Ur Squamous Epith Cells 3-5 Hyaline Casts 11-20 Assessment and Plan (1) Acute kidney injury: Status: Acute Plan 62 yr old woman with JOSE MANUEL JOSE MANUEL most likely from ischemic ATN No evidence of obstructive uropathy AGN/AIN seem unlikely Recommend: Optimize BP and maintain hemodynamic stability;Avoid hypotension Keep I > O Watch urine output Watch creatinine NO absolute indication for dialysis today Watch Potassium and tCO2 Concur with current management Procedures Date of Service Date of Service: 06/04/23
[2023-06-03] MEDS: Albuterol/Iprat 2.5/0.5MG 3 ML AMPUL.NEB INHALE ×4 (09:08→19:57)
[2023-06-03] MEDS: Pramipexole Di-HCL 0.25 MG TABLET PO (09:14)
[2023-06-03] MEDS: Topiramate 100 MG TABLET PO ×2 (09:14→20:26)
[2023-06-03] MEDS: Vortioxetine Hydrobromide 20 MG TABLET PO (09:14)
[2023-06-03] MEDS: Lactated Ringers 1,000 ML 150 ML IVCONT ×3 (10:24→23:15)
[2023-06-03] MEDS: Potassium Phosphate/NS 15 MMOL/250 ML PLAST..BAG 62.5 MMOL IV (10:31)
[2023-06-03] MEDS: fentaNYL citrate/NS 1,000 MCG/100 ML PLAST..BAG 5 MCG IVCONT (10:31)
[2023-06-03 11:22] LABS: Glucose, Whole Blood 174 mg/dL (60-115)
[2023-06-03] MEDS: Caspofungin Acetate 70 MG in 0.9 % Sodium Chloride 250 ML 250 MG IV (11:25)
--- NOTE | 2023-06-03 12:57 | HO.NEURO.PN ---
Neurosurgery Operative Note Date of Service: 06/03/23 Narrative: Post op day 3, L3-4 Oblique Lumbar Interbody Fusion Pt taken to OR overnight for abdominal exploration, found to have perforation/ulceration at the area of previous Pamela en Y gastric bypass. Area repaired, but apparently abd cavity contained food contents and liquids. She remains intubated, on abx and pressors, hopefully to extubate soon when appropriate. Dr Cat and I came by to see patient. She is intubated and sedated at this time, no exam possible. Pt too unstable to try to roll to look at back wounds. Can try tommorrow if appropriate. Dr Cat spoke with ICU team regadring patient status. Situation is guarded but optimistic she can recover. Neurosurgery will cont to follow.
[2023-06-03 13:07] LABS: MRSA Nasal PCR NEGATIVE (Negative); SA Nasal PCR NEGATIVE (Negative)
--- NOTE | 2023-06-03 13:19 | MHC.CM.PN ---
Pt remains in ICU on vent support without plans to extubate today. CM to follow for changes in d/c planning: pt initially from home w/spouse: may require services or STR placement.
[2023-06-03] MEDS: Norepinephrine Bitartrate/D5W 8 MG/250 ML PLAST..BAG 30.92 MG IV ×2 (13:32→21:21)
--- NOTE | 2023-06-03 16:22 | PM.EVENT ---
Event Note Date of Service: 06/04/23 Event Note: seen on afternoon rounds remains on vent on low dose pressors UO adequate abd soft continue current ICU care keep NGT to low intermittent suction Time Spent With Patient Time: Total time managing care of this patient today ____ minutes.
[2023-06-03 17:22] LABS: Glucose, Whole Blood 189 mg/dL (60-115)
[2023-06-03] MEDS: Sennosides 8.6 MG TABLET PO (20:26)
[2023-06-04] VITALS (41 sets, daily range): BP systolic 98–144; BP diastolic 52–79; PULSE 73–101; RESP 11–18; TEMP 34.3–38.4; O2SAT 92–98; BMI 39.7
[2023-06-04 00:10] LABS: Glucose, Whole Blood 190 mg/dL (60-115)
[2023-06-04] MEDS: Insulin Lispro 100 UNIT/ML 3 ML VIAL SUBCUT ×2 (00:20→06:06)
[2023-06-04] MEDS: propofoL 1,000 MG/100 ML VIAL 21.99 MG IVCONT ×2 (03:07→07:34)
[2023-06-04 05:06] LABS: VBG HCO3 20 mmol/L (22-26); VBG pCO2 33 mmHg; VBG pH 7.38 (7.32-7.43); VBG pO2 87 mmHg
[2023-06-04 05:08] LABS: Mean Platelet Volume 13.4 fL (9.4-12.3); Red Cell Distribution Width 14.3 % (11.0-16.0)
[2023-06-04 05:09] LABS: Hematocrit 31.1 % (37.0-47.0); Hemoglobin 10.3 g/dl (12.0-16.0); Mean Corpuscular HGB Conc 33.1 g/dl (31.0-35.0); Mean Corpuscular Hemoglobin 29.6 pg (27.0-33.0); Mean Corpuscular Volume 89.4 fL (80.0-98.0); Red Blood Count 3.48 X10*6/uL (4.20-5.50)
[2023-06-04 05:19] LABS: PLT ABN DIST 1; Platelet Count 82 X10*3/uL (160-400); WBC ABN SCTR FOR CBC 1; White Blood Count 7.4 X10*3/uL (4.8-10.8)
[2023-06-04 05:23] LABS: Alanine Aminotransferase 21 U/L (0-31); Albumin Level 2.8 g/dL (3.5-5.0); Alkaline Phosphatase 53 U/L (39-117); Anion Gap 18 (12-20); Aspartate Amino Transferase 37 U/L (5-31); Bilirubin Total 1.4 mg/dL (0.0-1.0); Blood Urea Nitrogen 35 mg/dL (9-16); Calcium 7.9 mg/dL (8.4-10.2); Carbon Dioxide 21 mmol/L (22-29); Chloride 107 mmol/L (96-108); Creatinine Clr Calc Pharmacy 24.7; Estimated Glomerular Filt Rate 18; Glucose Random 162 mg/dL (60-115); Magnesium 1.6 mg/dL (1.6-2.6); Phosphorus 4.5 mg/dL (2.7-4.5); Potassium 3.6 mmol/L (3.3-5.1); Sodium 142 mmol/L (135-145); Total Protein 4.6 g/dL (6.5-8.0)
[2023-06-04] MEDS: Norepinephrine Bitartrate/D5W 8 MG/250 ML PLAST..BAG 30.92 MG IV (05:34)
[2023-06-04] MEDS: Sodium Bicarbonate 8.4% 50 MEQ/50 ML VIAL 100 MEQ IVPUSH (05:37)
[2023-06-04] MEDS: Pantoprazole Sodium 40 MG/10 ML VIAL IVPUSH ×2 (05:38→16:29)
[2023-06-04 05:41] LABS: Venous Blood Gas Refer to POC result
[2023-06-04] MEDS: Metoprolol Tartrate 5 MG/5 ML VIAL IVPUSH (05:51)
[2023-06-04 05:52] LABS: Band Neutrophils Percent 34 % (3-5); Lymphocytes Absolute Manual 0.7 X10*3/uL (1.2-4.9); Lymphocytes Percent Manual 9 % (20-40); Metamyelocytes Absolute 0.1 X10*3/uL; Metamyelocytes Percent 1 %; Monocytes Absolute Manual 0.4 X10*3/uL (0.1-1.2); Monocytes Percent Manual 5 % (2-11); Neutrophils Absolute Manual 6.3 X10*3/uL (2.0-8.3); Neutrophils Percent Manual 51 % (45-73)
[2023-06-04] MEDS: Piperacillin Sodium/Tazobactam 3.375 GM in 0.9 % Sodium Chloride 50 ML IV ×4 (05:52→23:56)
[2023-06-04] MEDS: Lactated Ringers 1,000 ML 150 ML IVCONT ×3 (05:53→18:36)
[2023-06-04 05:54] LABS: Basophilic Stippling 1+ (0-2) /OIF; Burr Cells 2+ (3-5) /OIF; Dohle Bodies PRESENT; Large Platelet PRESENT; Ovalocytes 1+ (5-14) /OIF; Platelet Estimate DECREASED (NORMAL); Platelet Morphology Comment NOTED; RBC Morphology NOTED; Toxic Granulation PRESENT; Toxic Vacuolation PRESENT
[2023-06-04 05:55] LABS: Polychromasia 1+ (0-2) /OIF
--- NOTE | 2023-06-04 07:29 | PC.NURSE ---
0540 patient with heart rate in the 140-150s. DEBI Kennedy notified. Lopressor 5 mg ordered and administered with good effect.
[2023-06-04] MEDS: Albuterol/Iprat 2.5/0.5MG 3 ML AMPUL.NEB INHALE ×4 (07:31→19:09)
--- NOTE | 2023-06-04 07:37 | PM.PNGS ---
Subjective Subjective Date of Service: 06/04/23 Interval history: SVT overnight. Remains on intubated, on pressors. NGT with scanty bilious output. good UOP. Physical Exam Vital Signs: Vital Signs: Last Vital Signs Temp 100.2 F 06/04/23 07:00 Pulse 80 06/04/23 07:31 Resp 14 06/04/23 07:31 BP 99/60 06/04/23 07:00 Pulse Ox 98 06/04/23 07:00 O2 Del Method Mechanical Ventil ation 06/04/23 07:00 O2 Flow Rate 40 06/03/23 11:00 FiO2 40 06/04/23 07:00 BMI result Body Mass Index 39.7 Resp: Other: on vent GI: Inspection: No distended and Yes incision (clean ) Palpation (GI): Soft to palpation and no guarding Percussion: Yes normal to percussion Skin: General skin exam: no rashes or lesions noted Objective Data Active Medications Albuterol Sulfate (Albuterol Sulfate (0.083%) 2.5 Mg/3 Ml Vial.Neb) 2.5 mg INHALE ONCE PRN PRN Reason: Shortness of Breath/Wheezing Albuterol Sulfate (Albuterol Sulfate 90 Mcg 8 Gm Inhaler) 2 puff INHALE Q6H PRN PRN Reason: Shortness Of Breath Albuterol/Ipratropium (Albuterol/Iprat 2.5/0.5mg 3 Ml Ampul.Neb) 3 ml INHALE RQ4H WHILE AWAKE [facility] Last Admin: 06/04/23 07:31 Dose: 3 ml Documented By: DONNA Clonazepam (Clonazepam 1 Mg Tablet) 1 mg PO TID [facility] Last Admin: 06/02/23 14:06 Dose: Not Given Documented By: RAVEN Non-Admin Reason: pt lethargic Fluticasone/Vilanterol (Fluticasone/Vilanterol 200/25 Blst.W.Dev) 1 puff INHALE RDAILY [facility] Last Admin: 06/02/23 08:43 Dose: 1 puff Documented By: DONNA Furosemide (Furosemide 20 Mg Tablet) 20 mg PO DAILY [facility]; Protocol Last Admin: 06/02/23 11:05 Dose: Not Given Documented By: RAVEN Non-Admin Reason: Decreased Blood Pressure Gabapentin (Gabapentin 400 Mg Capsule) 800 mg PO BID [facility] Last Admin: 06/02/23 11:03 Dose: 800 mg Documented By: RAVEN Glucose (Glucose Gel 15 Gm Gel..Gram.) 15 gm PO Q15M PRN; Protocol PRN Reason: per Hypoglycemia Standing Ord. Dextrose (D10) 250 mls @ 750 mls/hr IV Q15M PRN; Protocol PRN Reason: per Hypoglycemia Standing Ord. Piperacillin Sod/Tazobactam (Sod 3.375 gm/ Sodium Chloride) 50 mls @ 100 mls/hr IV Q6H [facility] Last Infusion: 06/04/23 06:24 Dose: Infused Documented By: KERMIT Propofol (Diprivan) 1,000 mg in 100 mls @ 0 mls/hr IVCONT .Q0M [facility]; Protocol Last Admin: 06/04/23 07:34 Dose: 40 mcg/kg/min, 21.99 mls/hr Documented By: REYNALDO Norepinephrine Bitartrate (Levophed) 8 mg in 250 mls @ 0 mls/hr IV .Q0M [facility]; Protocol Last Admin: 06/04/23 05:34 Dose: 0.18 mcg/kg/min, 30.92 mls/hr Documented By: KERMIT Fentanyl (Sublimaze/Ns) 1,000 mcg in 100 mls @ 0 mls/hr IVCONT .Q0M [facility]; Protocol Last Titration: 06/04/23 06:02 Dose: 0 mcg/hr, 0 mls/hr Documented By: KERMIT Lactated Ringer's (Lr) 1,000 mls @ 150 mls/hr IVCONT .Q6H40M [facility] Last Admin: 06/04/23 05:53 Dose: 150 mls/hr Documented By: KERMIT Caspofungin 50 mg/ Sodium (Chloride) 250 mls @ 250 mls/hr IV Q24H [facility] Magnesium Sulfate (Magnesium Sulfate/H2o) 2 gm in 50 mls @ 25 mls/hr IV ONCE ONE Stop: 06/04/23 09:59 Insulin Human Lispro (Insulin Lispro 100 Unit/Ml 3 Ml Vial) 0 unit SUBCUT Q6H [facility]; Protocol Last Admin: 06/04/23 06:06 Dose: 2 unit Documented By: KERMIT Lactulose (Lactulose 20 Gm/30 Ml Solution) 10 gm PO DAILY [facility] Last Admin: 06/02/23 11:04 Dose: 10 gm Documented By: RAVEN Naloxone HCl (Naloxone Hcl 0.4 Mg/Ml Vial) 0.2 mg IVPUSH Q2M PRN PRN Reason: Excessive sedation or RR < 8 Non-Formulary Medication (Bupropion Hcl) 100 mg PO QAM [facility] Ondansetron HCl (Ondansetron Hcl 4 Mg/2 Ml Vial) 4 mg IVPUSH Q6H PRN PRN Reason: Nausea and Vomiting Pantoprazole Sodium (Pantoprazole Sodium 40 Mg/10 Ml Vial) 40 mg IVPUSH BID@0630,1630 [facility] Last Admin: 06/04/23 05:38 Dose: 40 mg Documented By: KERMIT Pantoprazole Sodium (Pantoprazole Sodium 40 Mg/10 Ml Vial) 40 mg IVPUSH DAILY@0630 [facility] Last Admin: 06/04/23 06:01 Dose: Not Given Documented By: KERMIT Non-Admin Reason: Duplicate Order Pharmacy Consult (Consult Rx Vancomycin Dosing) 1 each MISCELLANE DAILY PRN PRN Reason: Consult order Polyethylene Glycol (Polyethylene Glycol 3350 17 Gm Powd.Pack) 17 gm PO DAILY PRN PRN Reason: constipation Pramipexole Dihydrochloride (Pramipexole Di-Hcl 0.25 Mg Tablet) 0.25 mg PO DAILY [facility] Last Admin: 06/03/23 09:14 Dose: 0.25 mg Documented By: ELIJAH Senna (Sennosides 8.6 Mg Tablet) 8.6 mg PO BEDTIME [facility] Last Admin: 06/03/23 20:26 Dose: 8.6 mg Documented By: KERMIT Topiramate (Topiramate 100 Mg Tablet) 100 mg PO BID [facility] Last Admin: 06/03/23 20:26 Dose: 100 mg Documented By: KERMIT Vortioxetine (Vortioxetine Hydrobromide 20 Mg Tablet) 20 mg PO DAILY [facility] Last Admin: 06/03/23 09:14 Dose: 20 mg Documented By: ELIJAH Labs 06/04/23 04:48 06/04/23 04:48 Labs: Laboratory Results - last 24 hr 06/03/23 06/03/2324 07:42 10:20 11:18 MCV MCH MCHC RDW Plt Count MPV Immature Gran % (Auto) Neut % (Auto) Lymph % (Auto) [place] % (Auto) Eos % (Auto) Baso % (Auto) Lymph # (Auto) [place] # (Auto) Eos # (Auto) Baso # (Auto) Abs Immat Gran (auto) Absolute Neuts (auto) Absolute Nucleated RBC Nucleated RBC % (auto) Neutrophils % (Manual) Band Neutrophils % Lymphocytes % (Manual) Monocytes % (Manual) Metamyelocytes % Abs Neuts (Manual) Lymphocytes # (Manual) Monocytes # (Manual) Metamyelocytes # Toxic Granulation Toxic Vacuolation Dohle Bodies Platelet Estimate Large Platelets Plt Morphology Comment RBC Morphology Polychromasia Basophilic Stippling Ovalocytes [place] Cells VBG pH VBG pCO2 VBG pO2 VBG HCO3 VBG O2 Saturation VBG Base Excess Anion Gap Estim Creat Clear Calc Estimated GFR POC Glucose 155 H 174 H Random Glucose Calcium Phosphorus Magnesium Total Bilirubin AST ALT Alkaline Phosphatase Total Protein Albumin Nasal Screen MRSA (PCR) NEGATIVE Nasal S. aureus Screen NEGATIVE Nasal MRSA/S.aureus Interp SEE NOTE 06/03/23 06/04/23 06/04/23 17:17 00:02 04:48 MCV 89.4 MCH 29.6 MCHC 33.1 RDW 14.3 Plt Count 82 L D MPV 13.4 H Immature Gran % (Auto) Cancelled Neut % (Auto) Cancelled Lymph % (Auto) Cancelled [place] % (Auto) Cancelled Eos % (Auto) Cancelled Baso % (Auto) Cancelled Lymph # (Auto) Cancelled [place] # (Auto) Cancelled Eos # (Auto) Cancelled Baso # (Auto) Cancelled Abs Immat Gran (auto) Cancelled Absolute Neuts (auto) Cancelled Absolute Nucleated RBC 0.000 Nucleated RBC % (auto) 0.0 Neutrophils % (Manual) 51 Band Neutrophils % 34 H Lymphocytes % (Manual) 9 L Monocytes % (Manual) 5 Metamyelocytes % 1 Abs Neuts (Manual) 6.3 Lymphocytes # (Manual) 0.7 L Monocytes # (Manual) 0.4 Metamyelocytes # 0.1 Toxic Granulation PRESENT Toxic Vacuolation PRESENT Dohle Bodies PRESENT Platelet Estimate DECREASED Large Platelets PRESENT Plt Morphology Comment NOTED RBC Morphology NOTED Polychromasia 1+ (0-2) Basophilic Stippling 1+ (0-2) Ovalocytes 1+ (5-14) [place] Cells 2+ (3-5) VBG pH VBG pCO2 VBG pO2 VBG HCO3 VBG O2 Saturation VBG Base Excess Anion Gap 18 Estim Creat Clear Calc 24.7 Estimated GFR 18 POC Glucose 189 H 190 H Random Glucose 162 H Calcium 7.9 L D Phosphorus 4.5 Magnesium 1.6 Total Bilirubin 1.4 H AST 37 H ALT 21 Alkaline Phosphatase 53 Total Protein 4.6 L Albumin 2.8 L Nasal Screen MRSA (PCR) Nasal S. aureus Screen Nasal MRSA/S.aureus Interp 06/04/23 04:57 MCV MCH MCHC RDW Plt Count MPV Immature Gran % (Auto) Neut % (Auto) Lymph % (Auto) [place] % (Auto) Eos % (Auto) Baso % (Auto) Lymph # (Auto) [place] # (Auto) Eos # (Auto) Baso # (Auto) Abs Immat Gran (auto) Absolute Neuts (auto) Absolute Nucleated RBC Nucleated RBC % (auto) Neutrophils % (Manual) Band Neutrophils % Lymphocytes % (Manual) Monocytes % (Manual) Metamyelocytes % Abs Neuts (Manual) Lymphocytes # (Manual) Monocytes # (Manual) Metamyelocytes # Toxic Granulation Toxic Vacuolation Dohle Bodies Platelet Estimate Large Platelets Plt Morphology Comment RBC Morphology Polychromasia Basophilic Stippling Ovalocytes [place] Cells VBG pH 7.38 VBG pCO2 33 VBG pO2 87 VBG HCO3 20 L VBG O2 Saturation 98.0 VBG Base Excess -4.0 Anion Gap Estim Creat Clear Calc Estimated GFR POC Glucose Random Glucose Calcium Phosphorus Magnesium Total Bilirubin AST ALT Alkaline Phosphatase Total Protein Albumin Nasal Screen MRSA (PCR) Nasal S. aureus Screen Nasal MRSA/S.aureus Interp Microbiology Microbiology Results: Microbiology 06/02/23 19:33 Blood Culture - Preliminary Blood - Venous No growth after 24 hours. 06/02/23 19:33 Blood Culture - Preliminary Blood - Venous No growth after 24 hours. 06/03/23 04:15 Gram Stain - Final Abdominal Fluid Routine Culture - Preliminary Procedures Date of Service Date of Service: 06/04/23 Progress Note: A&P Assessment and plan (1) Perforated ulcer: Status: Acute (2) Bowel perforation: Status: Acute Plan POD #1 s/p exploratory laparotomy, plication of ulcer at Pamela-en-Y anastomosis for perforated ulcer at Pamela-en-Y anastomosis. Remains on vent, pressors. NGT output scant. Incision clean, abd soft. Good UOP. Cont IV PPI, IV abx and antifungal. Keep NGT in place to low intermittent suction. Cont restorative measures, remainder of care per ICU team. Time Spent With Patient Time: Total time managing care of this patient today ____ minutes. Quality Stroke Does the patient have a stroke diagnosis?: No VTE Prior VTE?: No VTE Risk Level:: Surgical - low VTE Device Contraindication: N/A - Device Ordered VTE Drug Contraindication: Treatment Not Indicated
[2023-06-04] MEDS: Magnesium Sulfate/H2O 2 GM/50 ML PIGGYBACK IV (07:41)
--- NOTE | 2023-06-04 08:47 | P.PNCC_ITS ---
Subjective Subjective Date of Service: 06/04/23 Interval History: Remained stable on the ventilator support Sedated with propofol fentanyl Remains on Levophed for vasopressor support, decreasing doses Renal functions improving Abdomen soft Critical Care Time (minutes): 50 Physical Exam 2 Vital Signs: Vital Signs: Last Vital Signs Temp 100.4 F 06/04/23 08:00 Pulse 82 06/04/23 08:00 Resp 15 06/04/23 08:00 BP 119/70 06/04/23 08:00 Pulse Ox 97 06/04/23 08:00 O2 Del Method Mechanical Ventil ation 06/04/23 08:00 O2 Flow Rate 40 06/03/23 11:00 FiO2 40 06/04/23 08:00 BMI result Body Mass Index 39.7 Const: General: in distress, ill appearing, intoxicated appearing, lethargic, patient obtunded and tired appearing Orientation/consciousness: patient obtunded and lethargic HEENT: Head: Yes No palpable skull fracture present, Yes normocephalic and Yes atraumatic Eyes: General: appearance normal, both eyes and all related structures A lignment and Position: alignment normal and position normal Resp: Other: Bilateral air entry coarse, crackles heard in lung bases bilaterally Cardio: Other: Normal S1-S2 heard no murmur GI: Other: Soft, mild tenderness, abdominal incision sites look okay Skin: Other: No skin breakdown Neuro: Other: No focal deficit, sedated with propofol General: patient obtunded Objective Data Labs 06/04/23 04:48 06/04/23 04:48 Labs: Laboratory Results - last 24 hr 06/03/23 06/03/23 06/03/23 10:20 11:18 17:17 WBC RBC Hgb Hct MCV MCH MCHC RDW Plt Count MPV Immature Gran % (Auto) Neut % (Auto) Lymph % (Auto) [place] % (Auto) Eos % (Auto) Baso % (Auto) Lymph # (Auto) [place] # (Auto) Eos # (Auto) Baso # (Auto) Abs Immat Gran (auto) Absolute Neuts (auto) Absolute Nucleated RBC Nucleated RBC % (auto) Neutrophils % (Manual) Band Neutrophils % Lymphocytes % (Manual) Monocytes % (Manual) Metamyelocytes % Abs Neuts (Manual) Lymphocytes # (Manual) Monocytes # (Manual) Metamyelocytes # Toxic Granulation Toxic Vacuolation Dohle Bodies Platelet Estimate Large Platelets Plt Morphology Comment RBC Morphology Polychromasia Basophilic Stippling Ovalocytes [place] Cells VBG pH VBG pCO2 VBG pO2 VBG HCO3 VBG O2 Saturation VBG Base Excess Sodium Potassium Chloride Carbon Dioxide Anion Gap BUN Creatinine Estim Creat Clear Calc Estimated GFR POC Glucose 174 H 189 H Random Glucose Calcium Phosphorus Magnesium Total Bilirubin AST ALT Alkaline Phosphatase Total Protein Albumin Nasal Screen MRSA (PCR) NEGATIVE Nasal S. aureus Screen NEGATIVE Nasal MRSA/S.aureus Interp SEE NOTE 06/04/23 06/04/23 06/04/23 00:02 04:48 04:57 WBC 7.4 RBC 3.48 L Hgb 10.3 L Hct 31.1 L MCV 89.4 MCH 29.6 MCHC 33.1 RDW 14.3 Plt Count 82 L D MPV 13.4 H Immature Gran % (Auto) Cancelled Neut % (Auto) Cancelled Lymph % (Auto) Cancelled [place] % (Auto) Cancelled Eos % (Auto) Cancelled Baso % (Auto) Cancelled Lymph # (Auto) Cancelled [place] # (Auto) Cancelled Eos # (Auto) Cancelled Baso # (Auto) Cancelled Abs Immat Gran (auto) Cancelled Absolute Neuts (auto) Cancelled Absolute Nucleated RBC 0.000 Nucleated RBC % (auto) 0.0 Neutrophils % (Manual) 51 Band Neutrophils % 34 H Lymphocytes % (Manual) 9 L Monocytes % (Manual) 5 Metamyelocytes % 1 Abs Neuts (Manual) 6.3 Lymphocytes # (Manual) 0.7 L Monocytes # (Manual) 0.4 Metamyelocytes # 0.1 Toxic Granulation PRESENT Toxic Vacuolation PRESENT Dohle Bodies PRESENT Platelet Estimate DECREASED Large Platelets PRESENT Plt Morphology Comment NOTED RBC Morphology NOTED Polychromasia 1+ (0-2) Basophilic Stippling 1+ (0-2) Ovalocytes 1+ (5-14) [place] Cells 2+ (3-5) VBG pH 7.38 VBG pCO2 33 VBG pO2 87 VBG HCO3 20 L VBG O2 Saturation 98.0 VBG Base Excess -4.0 Sodium 142 Potassium 3.6 Chloride 107 Carbon Dioxide 21 L Anion Gap 18 BUN 35 H Creatinine 2.64 H Estim Creat Clear Calc 24.7 Estimated GFR 18 POC Glucose 190 H Random Glucose 162 H Calcium 7.9 L D Phosphorus 4.5 Magnesium 1.6 Total Bilirubin 1.4 H AST 37 H ALT 21 Alkaline Phosphatase 53 Total Protein 4.6 L Albumin 2.8 L Nasal Screen MRSA (PCR) Nasal S. aureus Screen Nasal MRSA/S.aureus Interp Microbiology Microbiology Results: Microbiology 06/02/23 19:33 Blood - Venous Blood Culture - Preliminary No growth after 24 hours. 06/02/23 19:33 Blood - Venous Blood Culture - Preliminary No growth after 24 hours. 06/03/23 04:15 Abdominal Fluid Gram Stain - Final 06/03/23 04:15 Abdominal Fluid Routine Culture - Preliminary Progress Note: A&P Assessment and plan (1) Bowel perforation: Status: Acute (2) Perforated ulcer: Status: Acute (3) Acute hypoxic respiratory failure: Status: Acute (4) Shock: Status: Acute (5) Acute kidney injury: Status: Acute (6) Acute encephalopathy: Status: Acute Plan Claudette Stapleton is a 62-year-old lady with past medical history of hypertension, diabetes, neuropathy, history of pulmonary embolism in the past anticoagulation discontinued by PCP in March 2023, she had severe claudication of her lower extremities due to thoracic radiculopathy and spondylolisthesis of lumbar spine. She was admitted to the hospital for L3-L4 lumbar fusion which went uneventful on 05/31/2023. Patient remained stable hospital stay on 06/01/2023, on 06/02/2023 the patient developed hypotension, JOSE MANUEL and encephalopathy. CT of the abdomen shortness positive for colonic perforation, emergently taken to the room for a laparotomy and perforation was closed. Remains critically ill on ventilator support and vasopressor support Neuro: Acute encephalopathy: Secondary to metabolic encephalopathy from ongoing multiorgan failure, however can not rule out gabapentin toxicity in the setting of JOSE MANUEL. Clonazepam, gabapentin, pregabalin has been discontinued. Currently on fentanyl drip for analgesia and propofol for sedation. We will decrease the dose of propofol to target for a RASS of -1 ICU delirium precautions Cardio: Septic shock: From perforated bowel, currently on Levophed support titrate to keep the map of 65 mm Hg, doses of Levophed decreasing. Bedside echo showed normal LV function slightly dilated RV, IVC 1.8 cm noncollapsible. Continue LR at 150 cc/hour given her bowel perf she needs aggressive volume resuscitation History of Pulmonary embolism: Has a history of pulmonary embolism, anticoagulation stopped By PCP in March 2023 Has elevated D-dimer, right heart dilation, dilated IVC. But bedside Doppler of the lower extremity did not show any occlusive clots Respiratory: Acute hypoxemic respiratory failure due to poor respiratory efforts from severe abdominal pain. Currently intubated and on ventilator support, PRVC mode FiO2 50%, peep 5, tidal volume 330, respiratory rate 14; peak inspiratory pressures and plateau pressures under the curve. Maintaining saturations well, pCO2 normal, pH okay. We will continue her on the same ventilator mode, we will taper sedation and if she does well we will give her some time on pressor support. GI: CT with oral contrast showed extravasation of the concerning for perforation was emergently taken to the operating room overnight for laprotomy.. Apparently the perforation was around the site of previous gastric bypass surgery On Zosyn for antibiotic coverage, capsular 100 for antifungal coverage Acute kidney injury: Baseline creatinine around 0.8, increased to 3.08 yesterday but trending down today to 2.64 Possibly due to ATN as a component of multiorgan failure including multiple episodes of hypotension. Improving with improvement in disease process No indication for renal replacement therapy Closely monitor I's and O's Severe metabolic acidosis: Secondary to severe JOSE MANUEL Continue LR drip at 150 cc an hour Infectious disease: pancultures pending on Zosyn for bowel perforation, capsofungin for antifungal coverage Endocrine: Blood sugars are under control Sliding scale insulin as needed Lines: right IJ TLC placed on 06/03/2023 [place] catheter Prophylaxis: Heparin, pantoprazole Quality Stroke Does the patient have a stroke diagnosis?: No VTE Prior VTE?: No VTE Risk Level:: Surgical - low VTE Device Contraindication: N/A - Device Ordered VTE Drug Contraindication: Treatment Not Indicated
--- NOTE | 2023-06-04 10:15 | MHC.CLN ---
F/U PT IS INTUBATED AND SEDATED DISCUSSED AT ROUNDS WITH MD PLAN TO POSSIBLY START TRICKLE FEED TODAY IF TRICKLE FEED TO START; RECOMMEND PROMOTE AT 10ML/HR CONTINUOUS IF FULL STRENGTH TF NEEDED; RECOMMEND PROMOTE AT MAX GOAL RATE 45ML/HR CONTINUOUS WITH 240ML FREE WATER FLUSHES Q 6 HRS TO PROVIDE 1080KCALS (1515KCALS WITH SEDATION; 23KCALS/KG BASED ON CMW), 67.5G PROTEIN (1.0G/KG), 1866ML TOTAL FREE WATER FROM FORMULA AND FLUSHES (28ML/KG) MONITOR TOLERANCE, RESIDUALS AND LYTES FOLLOWING WITH TEAM
[2023-06-04] MEDS: Caspofungin Acetate 50 MG in 0.9 % Sodium Chloride 250 ML 250 MG IV (10:17)
[2023-06-04] MEDS: fentaNYL citrate/NS 1,000 MCG/100 ML PLAST..BAG 2.5 MCG IVCONT (11:10)
[2023-06-04 11:23] LABS: Glucose, Whole Blood 131 mg/dL (60-115)
--- NOTE | 2023-06-04 11:52 | P.PNNP_ITS ---
Subjective Subjective Date of Service: 06/04/23 Interval history: Events noted Still on pressors UO has increased! Physical Exam 2 Vital Signs: Vital Signs: Last Vital Signs Temp 100.2 F 06/04/23 11:00 Pulse 83 06/04/23 11:24 Resp 15 06/04/23 11:24 BP 107/60 06/04/23 11:00 Pulse Ox 96 06/04/23 11:00 O2 Del Method Mechanical Ventil ation 06/04/23 11:00 O2 Flow Rate 40 06/03/23 11:00 FiO2 21 06/04/23 11:25 BMI result Body Mass Index 39.7 Const: General: in distress and ill appearing Neck: Neck: Yes supple Resp: Auscultation: clear to auscultation bilaterally Cardio: Palpation: no palpable S3 Heart sounds: no rubs GI: Palpation (GI): Soft to palpation Auscultation: normal bowel sounds Neuro: Motor exam (neuro): no asterixis Objective Data Labs 06/04/23 04:48 06/04/23 04:48 Labs: Laboratory Results - last 24 hr 06/03/23 06/03/23 06/04/23 10:20 17:17 00:02 WBC RBC Hgb Hct MCV MCH MCHC RDW Plt Count MPV Immature Gran % (Auto) Neut % (Auto) Lymph % (Auto) [place] % (Auto) Eos % (Auto) Baso % (Auto) Lymph # (Auto) [place] # (Auto) Eos # (Auto) Baso # (Auto) Abs Immat Gran (auto) Absolute Neuts (auto) Absolute Nucleated RBC Nucleated RBC % (auto) Neutrophils % (Manual) Band Neutrophils % Lymphocytes % (Manual) Monocytes % (Manual) Metamyelocytes % Abs Neuts (Manual) Lymphocytes # (Manual) Monocytes # (Manual) Metamyelocytes # Toxic Granulation Toxic Vacuolation Dohle Bodies Platelet Estimate Large Platelets Plt Morphology Comment RBC Morphology Polychromasia Basophilic Stippling Ovalocytes [place] Cells VBG pH VBG pCO2 VBG pO2 VBG HCO3 VBG O2 Saturation VBG Base Excess Sodium Potassium Chloride Carbon Dioxide Anion Gap BUN Creatinine Estim Creat Clear Calc Estimated GFR POC Glucose 189 H 190 H Random Glucose Calcium Phosphorus Magnesium Total Bilirubin AST ALT Alkaline Phosphatase Total Protein Albumin Nasal Screen MRSA (PCR) NEGATIVE Nasal S. aureus Screen NEGATIVE Nasal MRSA/S.aureus Interp SEE NOTE 06/04/23 06/04/23 06/04/23 04:48 04:57 11:19 WBC 7.4 RBC 3.48 L Hgb 10.3 L Hct 31.1 L MCV 89.4 MCH 29.6 MCHC 33.1 RDW 14.3 Plt Count 82 L D MPV 13.4 H Immature Gran % (Auto) Cancelled Neut % (Auto) Cancelled Lymph % (Auto) Cancelled [place] % (Auto) Cancelled Eos % (Auto) Cancelled Baso % (Auto) Cancelled Lymph # (Auto) Cancelled [place] # (Auto) Cancelled Eos # (Auto) Cancelled Baso # (Auto) Cancelled Abs Immat Gran (auto) Cancelled Absolute Neuts (auto) Cancelled Absolute Nucleated RBC 0.000 Nucleated RBC % (auto) 0.0 Neutrophils % (Manual) 51 Band Neutrophils % 34 H Lymphocytes % (Manual) 9 L Monocytes % (Manual) 5 Metamyelocytes % 1 Abs Neuts (Manual) 6.3 Lymphocytes # (Manual) 0.7 L Monocytes # (Manual) 0.4 Metamyelocytes # 0.1 Toxic Granulation PRESENT Toxic Vacuolation PRESENT Dohle Bodies PRESENT Platelet Estimate DECREASED Large Platelets PRESENT Plt Morphology Comment NOTED RBC Morphology NOTED Polychromasia 1+ (0-2) Basophilic Stippling 1+ (0-2) Ovalocytes 1+ (5-14) [place] Cells 2+ (3-5) VBG pH 7.38 VBG pCO2 33 VBG pO2 87 VBG HCO3 20 L VBG O2 Saturation 98.0 VBG Base Excess -4.0 Sodium 142 Potassium 3.6 Chloride 107 Carbon Dioxide 21 L Anion Gap 18 BUN 35 H Creatinine 2.64 H Estim Creat Clear Calc 24.7 Estimated GFR 18 POC Glucose 131 H Random Glucose 162 H Calcium 7.9 L D Phosphorus 4.5 Magnesium 1.6 Total Bilirubin 1.4 H AST 37 H ALT 21 Alkaline Phosphatase 53 Total Protein 4.6 L Albumin 2.8 L Nasal Screen MRSA (PCR) Nasal S. aureus Screen Nasal MRSA/S.aureus Interp Microbiology Microbiology Results: Microbiology 06/03/23 04:15 Abdominal Fluid Gram Stain - Final 06/03/23 04:15 Abdominal Fluid Routine Culture - Preliminary Culture in progress. 06/03/23 04:15 Abdominal Fluid Anaerobic Culture - Preliminary Culture in progress. 06/02/23 19:33 Blood - Venous Blood Culture - Preliminary No growth after 24 hours. 06/02/23 19:33 Blood - Venous Blood Culture - Preliminary No growth after 24 hours. Procedures Date of Service Date of Service: 06/04/23 Assessment & Plan Assessment and plan (1) Acute kidney injury: Status: Acute Plan 62 yr old woman with JOSE MANUEL JOSE MANUEL most likely from ischemic ATN No evidence of obstructive uropathy AGN/AIN seem unlikely Creatinine is trending down K is ok Recommend: Optimize BP and maintain hemodynamic stability;Avoid hypotension Keep I > O Watch urine output Watch creatinine NO absolute indication for dialysis today Watch Potassium and tCO2 Concur with current management Time Spent With Patient Time: Total time managing care of this patient today ____ minutes. Progress Note: Quality Stroke Does the patient have a stroke diagnosis?: No
--- NOTE | 2023-06-04 12:09 | HO.NEUROPN_ITS ---
Neurosurgery Operative Note Date of Service: 06/04/23 Narrative: Procedure: L3-4 Oblique Lumbar Interbody Fusion POD: 4 The patient was seen this morning in the ICU. She remains intubated, sedated, and on vasopressors and Zosyn. We discussed her current case with the flight crew scheduler Kelsi who reports she seems to be doing well and had no acute overnight events. Due to her current status an exam was not feasible. The ICU nurse taking care of her during day shift was able to send us a picture of her incision site when rolling the patient. It appears her wounds are closed, and well healing with minimal serosanguineous staining. No gross edema or erythema noted. The attending neurosurgeon Dr. Cat was updated on her current status. We are hopeful she will make a full recovery. I will be in late tomorrow afternoon to round on the patient and evaluate for any updates. Pravin Cat MD,PhD [facility]
[2023-06-04] MEDS: Norepinephrine Bitartrate/D5W 8 MG/250 ML PLAST..BAG 27.49 MG IV (14:13)
--- NOTE | 2023-06-04 15:09 | MHC.CM.PN ---
Pt remains in ICU on ventilatory support following a return to the OR for repair of a bowel perforation after lumbar interbody fusion surgery. Plans are to reduce pressors and sedation to assess for return of neuro function necessary for vent wean. CM to follow for finalization of d/c needs
[2023-06-04 17:48] LABS: Glucose, Whole Blood 129 mg/dL (60-115)
[2023-06-04] MEDS: Chlorhexidine Gluc Oral Rinse 15 ML MOUTHWASH BUCCAL (21:36)
[2023-06-04 23:45] LABS: Glucose, Whole Blood 123 mg/dL (60-115)
[2023-06-05] VITALS (38 sets, daily range): BP systolic 104–141; BP diastolic 52–74; PULSE 70–95; RESP 11–24; TEMP 34.6–38.5; O2SAT 90–98; BMI 41.4
[2023-06-05] MEDS: Lactated Ringers 1,000 ML 150 ML IVCONT ×2 (01:13→07:28)
[2023-06-05] MEDS: Norepinephrine Bitartrate/D5W 8 MG/250 ML PLAST..BAG 17.18 MG IV (01:17)
[2023-06-05 04:54] LABS: VBG HCO3 27 mmol/L (22-26); VBG pCO2 39 mmHg; VBG pH 7.45 (7.32-7.43); VBG pO2 55 mmHg
[2023-06-05 04:56] LABS: Red Cell Distribution Width 14.3 % (11.0-16.0)
[2023-06-05 04:58] LABS: Hematocrit 27.8 % (37.0-47.0); Hemoglobin 9.3 g/dl (12.0-16.0); Mean Corpuscular HGB Conc 33.5 g/dl (31.0-35.0); Mean Corpuscular Hemoglobin 29.4 pg (27.0-33.0); Red Blood Count 3.16 X10*6/uL (4.20-5.50)
[2023-06-05 05:02] LABS: Venous Blood Gas Refer to POC result
[2023-06-05 05:04] LABS: PLT ABN DIST 1; WBC ABN SCTR FOR CBC 1; White Blood Count 9.4 X10*3/uL (4.8-10.8)
[2023-06-05 05:15] LABS: Alanine Aminotransferase 21 U/L (0-31); Albumin Level 2.5 g/dL (3.5-5.0); Alkaline Phosphatase 77 U/L (39-117); Anion Gap 13 (12-20); Aspartate Amino Transferase 30 U/L (5-31); Bilirubin Total 1.4 mg/dL (0.0-1.0); Blood Urea Nitrogen 31 mg/dL (9-16); Calcium 8.2 mg/dL (8.4-10.2); Carbon Dioxide 26 mmol/L (22-29); Chloride 108 mmol/L (96-108); Creatinine Clr Calc Pharmacy 37.6; Estimated Glomerular Filt Rate 28; Glucose Random 142 mg/dL (60-115); Potassium 3.4 mmol/L (3.3-5.1); Sodium 144 mmol/L (135-145); Total Protein 4.5 g/dL (6.5-8.0)
[2023-06-05 05:16] LABS: Band Neutrophils Percent 8 % (3-5); Eosinophils Absolute Manual 0.1 X10*3/uL (0.0-0.4); Eosinophils Percent Manual 1 % (0-4); Lymphocytes Absolute Manual 0.6 X10*3/uL (1.2-4.9); Lymphocytes Percent Manual 6 % (20-40); Monocytes Absolute Manual 0.1 X10*3/uL (0.1-1.2); Monocytes Percent Manual 1 % (2-11); Neutrophils Absolute Manual 8.6 X10*3/uL (2.0-8.3); Neutrophils Percent Manual 84 % (45-73)
[2023-06-05 05:18] LABS: Large Platelet PRESENT; Ovalocytes 1+ (5-14) /OIF; Platelet Estimate DECREASED (NORMAL); Platelet Morphology Comment NOTED; RBC Morphology NOTED
[2023-06-05 05:20] LABS: Dohle Bodies PRESENT; Toxic Granulation PRESENT; Toxic Vacuolation PRESENT
[2023-06-05 05:22] LABS: Mean Platelet Volume 13.3 fL (9.4-12.3); Platelet Count 58 X10*3/uL (160-400)
[2023-06-05] MEDS: Piperacillin Sodium/Tazobactam 3.375 GM in 0.9 % Sodium Chloride 50 ML IV ×4 (05:46→23:24)
[2023-06-05] MEDS: Pantoprazole Sodium 40 MG/10 ML VIAL IVPUSH ×2 (05:46→15:28)
[2023-06-05] MEDS: Albumin Human 25 % 100 ML IV ×4 (07:31→20:22)
[2023-06-05] MEDS: Chlorhexidine Gluc Oral Rinse 15 ML MOUTHWASH BUCCAL ×3 (07:33→20:23)
[2023-06-05] MEDS: Albuterol/Iprat 2.5/0.5MG 3 ML AMPUL.NEB INHALE ×4 (07:40→18:48)
--- NOTE | 2023-06-05 09:15 | P.PNGS_ITS ---
Subjective Subjective Date of Service: 06/05/23 Interval history: Patient remains intubated and sedated. Weaning down from levo. No BM noted. Physical Exam 2 Vital Signs: Vital Signs: Last Vital Signs Temp 100.4 F 06/05/23 08:53 Pulse 83 06/05/23 09:12 Resp 13 06/05/23 08:53 BP 128/65 06/05/23 09:12 Pulse Ox 93 06/05/23 08:53 O2 Del Method Mechanical Ventil ation 06/05/23 08:53 O2 Flow Rate 40 06/03/23 11:00 FiO2 30 06/05/23 08:53 BMI result Body Mass Index 41.4 Const: Other: Does not respond to voice Resp: Other: Intubated GI: Other: Softly distended, non tympanitic, midline incision clean, dry, without erythema. Skin: Other: Warm and dry Objective Data Active Medications Albuterol Sulfate (Albuterol Sulfate (0.083%) 2.5 Mg/3 Ml Vial.Neb) 2.5 mg INHALE ONCE PRN PRN Reason: Shortness of Breath/Wheezing Albuterol Sulfate (Albuterol Sulfate 90 Mcg 8 Gm Inhaler) 2 puff INHALE Q6H PRN PRN Reason: Shortness Of Breath Albuterol/Ipratropium (Albuterol/Iprat 2.5/0.5mg 3 Ml Ampul.Neb) 3 ml INHALE RQ4H WHILE AWAKE [facility] Last Admin: 06/05/23 07:40 Dose: 3 ml Documented By: CHELO Chlorhexidine Gluconate (Chlorhexidine Gluc Oral Rinse 15 Ml Mouthwash) 15 ml BUCCAL TID [facility] Last Admin: 06/05/23 07:33 Dose: 15 ml Documented By: REYNALDO Clonazepam (Clonazepam 1 Mg Tablet) 1 mg PO TID [facility] Last Admin: 06/02/23 14:06 Dose: Not Given Documented By: RAVEN Non-Admin Reason: pt lethargic Fluticasone/Vilanterol (Fluticasone/Vilanterol 200/25 Blst.W.Dev) 1 puff INHALE RDAILY [facility] Last Admin: 06/02/23 08:43 Dose: 1 puff Documented By: DONNA Furosemide (Furosemide 20 Mg Tablet) 20 mg PO DAILY [facility]; Protocol Last Admin: 06/02/23 11:05 Dose: Not Given Documented By: RAVEN Non-Admin Reason: Decreased Blood Pressure Gabapentin (Gabapentin 400 Mg Capsule) 800 mg PO BID [facility] Last Admin: 06/02/23 11:03 Dose: 800 mg Documented By: RAVEN Glucose (Glucose Gel 15 Gm Gel..Gram.) 15 gm PO Q15M PRN; Protocol PRN Reason: per Hypoglycemia Standing Ord. Dextrose (D10) 250 mls @ 750 mls/hr IV Q15M PRN; Protocol PRN Reason: per Hypoglycemia Standing Ord. Piperacillin Sod/Tazobactam (Sod 3.375 gm/ Sodium Chloride) 50 mls @ 100 mls/hr IV Q6H [facility] Last Infusion: 06/05/23 06:17 Dose: Infused Documented By: DIANNE Propofol (Diprivan) 1,000 mg in 100 mls @ 0 mls/hr IVCONT .Q0M MIKE; Protocol Last Titration: 06/04/23 12:20 Dose: Infused Documented By: REYNALDO Norepinephrine Bitartrate (Levophed) 8 mg in 250 mls @ 0 mls/hr IV .Q0M MIKE; Protocol Last Titration: 06/05/23 09:12 Dose: 0 mcg/kg/min, 0 mls/hr Documented By: REYNALDO Fentanyl (Sublimaze/Ns) 1,000 mcg in 100 mls @ 0 mls/hr IVCONT .Q0M MIKE; Protocol Last Admin: 06/04/23 11:10 Dose: 25 mcg/hr, 2.5 mls/hr Documented By: REYNALDO Lactated Ringer's (Lr) 1,000 mls @ 150 mls/hr IVCONT .Q6H40M MIKE Last Admin: 06/05/23 07:28 Dose: 150 mls/hr Documented By: REYNALDO Caspofungin 50 mg/ Sodium (Chloride) 250 mls @ 250 mls/hr IV Q24H [facility] Last Infusion: 06/04/23 11:38 Dose: Infused Documented By: REYNALDO Albumin Human (Kedbumin 25 %) 100 mls @ 100 mls/hr IV Q4H [facility] Stop: 06/05/23 20:59 Last Infusion: 06/05/23 08:32 Dose: Infused Documented By: REYNALDO Insulin Human Lispro (Insulin Lispro 100 Unit/Ml 3 Ml Vial) 0 unit SUBCUT Q6H [facility]; Protocol Last Admin: 06/05/23 05:20 Dose: Not Given Documented By: DIANNE Non-Admin Reason: No Insulin Coverage Lactulose (Lactulose 20 Gm/30 Ml Solution) 10 gm PO DAILY [facility] Last Admin: 06/02/23 11:04 Dose: 10 gm Documented By: RAVEN Naloxone HCl (Naloxone Hcl 0.4 Mg/Ml Vial) 0.2 mg IVPUSH Q2M PRN PRN Reason: Excessive sedation or RR < 8 Non-Formulary Medication (Bupropion Hcl) 100 mg PO QAM [facility] Ondansetron HCl (Ondansetron Hcl 4 Mg/2 Ml Vial) 4 mg IVPUSH Q6H PRN PRN Reason: Nausea and Vomiting Pantoprazole Sodium (Pantoprazole Sodium 40 Mg/10 Ml Vial) 40 mg IVPUSH BID@0630,1630 [facility] Last Admin: 06/05/23 05:46 Dose: 40 mg Documented By: DIANNE Pantoprazole Sodium (Pantoprazole Sodium 40 Mg/10 Ml Vial) 40 mg IVPUSH DAILY@0630 [facility] Last Admin: 06/05/23 05:00 Dose: Not Given Documented By: DIANNE Non-Admin Reason: Duplicate Order Pharmacy Consult (Consult Rx Vancomycin Dosing) 1 each MISCELLANE DAILY PRN PRN Reason: Consult order Polyethylene Glycol (Polyethylene Glycol 3350 17 Gm Powd.Pack) 17 gm PO DAILY PRN PRN Reason: constipation Pramipexole Dihydrochloride (Pramipexole Di-Hcl 0.25 Mg Tablet) 0.25 mg PO DAILY [facility] Last Admin: 06/04/23 11:38 Dose: Not Given Documented By: REYNALDO Non-Admin Reason: NPO Senna (Sennosides 8.6 Mg Tablet) 8.6 mg PO BEDTIME [facility] Last Admin: 06/04/23 20:50 Dose: Not Given Documented By: DIANNE Non-Admin Reason: Held per PA Topiramate (Topiramate 100 Mg Tablet) 100 mg PO BID [facility] Last Admin: 06/04/23 20:50 Dose: Not Given Documented By: DIANNE Non-Admin Reason: Held per PA Vortioxetine (Vortioxetine Hydrobromide 20 Mg Tablet) 20 mg PO DAILY MIKE Last Admin: 06/04/23 11:42 Dose: Not Given Documented By: REYNALDO Non-Admin Reason: NPO Labs 06/05/23 04:42 06/05/23 04:42 Labs: Laboratory Results - last 24 hr 06/04/23 06/04/23 06/04/23 11:19 17:41 23:38 MCV MCH MCHC RDW Plt Count MPV Immature Gran % (Auto) Neut % (Auto) Lymph % (Auto) [place] % (Auto) Eos % (Auto) Baso % (Auto) Lymph # (Auto) [place] # (Auto) Eos # (Auto) Baso # (Auto) Abs Immat Gran (auto) Absolute Neuts (auto) Absolute Nucleated RBC Nucleated RBC % (auto) Neutrophils % (Manual) Band Neutrophils % Lymphocytes % (Manual) Monocytes % (Manual) Eosinophils % (Manual) Abs Neuts (Manual) Lymphocytes # (Manual) Monocytes # (Manual) Eosinophils # (Manual) Toxic Granulation Toxic Vacuolation Dohle Bodies Platelet Estimate Large Platelets Plt Morphology Comment RBC Morphology Ovalocytes VBG pH VBG pCO2 VBG pO2 VBG HCO3 VBG O2 Saturation VBG Base Excess Anion Gap Estim Creat Clear Calc Estimated GFR POC Glucose 131 H 129 H 123 H Random Glucose Calcium Phosphorus Magnesium Total Bilirubin AST ALT Alkaline Phosphatase Total Protein Albumin 06/05/23 06/05/23 04:42 04:47 MCV 88.0 MCH 29.4 MCHC 33.5 RDW 14.3 Plt Count 58 L D MPV 13.3 H Immature Gran % (Auto) Cancelled Neut % (Auto) Cancelled Lymph % (Auto) Cancelled [place] % (Auto) Cancelled Eos % (Auto) Cancelled Baso % (Auto) Cancelled Lymph # (Auto) Cancelled [place] # (Auto) Cancelled Eos # (Auto) Cancelled Baso # (Auto) Cancelled Abs Immat Gran (auto) Cancelled Absolute Neuts (auto) Cancelled Absolute Nucleated RBC 0.000 Nucleated RBC % (auto) 0.0 Neutrophils % (Manual) 84 H Band Neutrophils % 8 H Lymphocytes % (Manual) 6 L Monocytes % (Manual) 1 L Eosinophils % (Manual) 1 Abs Neuts (Manual) 8.6 H Lymphocytes # (Manual) 0.6 L Monocytes # (Manual) 0.1 Eosinophils # (Manual) 0.1 Toxic Granulation PRESENT Toxic Vacuolation PRESENT Dohle Bodies PRESENT Platelet Estimate DECREASED Large Platelets PRESENT Plt Morphology Comment NOTED RBC Morphology NOTED Ovalocytes 1+ (5-14) VBG pH 7.45 H VBG pCO2 39 VBG pO2 55 VBG HCO3 27 H VBG O2 Saturation 88.0 VBG Base Excess 4.0 Anion Gap 13 Estim Creat Clear Calc 37.6 Estimated GFR 28 POC Glucose Random Glucose 142 H Calcium 8.2 L Phosphorus 3.0 Magnesium 2.0 Total Bilirubin 1.4 H AST 30 ALT 21 Alkaline Phosphatase 77 Total Protein 4.5 L Albumin 2.5 L Microbiology Microbiology Results: Microbiology 06/02/23 19:33 Blood Culture - Preliminary Blood - Venous No growth after 48 hours. 06/02/23 19:33 Blood Culture - Preliminary Blood - Venous No growth after 48 hours. 06/02/23 23:22 Urine Culture - Final Urine Catheterized - [place] Catheter No growth. 06/03/23 04:15 Gram Stain - Final Abdominal Fluid Routine Culture - Preliminary Culture in progress. Anaerobic Culture - Preliminary Culture in progress. Procedures Date of Service Date of Service: 06/05/23 Progress Note: A&P Assessment and plan (1) Perforated ulcer: Status: Acute (2) Bowel perforation: Status: Acute Plan POD #2 s/p exploratory laparotomy, plication of ulcer at Pamela-en-Y anastomosis for perforated ulcer at Pamela-en-Y anastomosis. Remains on vent, pressors. NGT output scant. Incision clean, abd soft. Good UOP. Cont IV PPI, IV abx and antifungal. Awaiting return of bowel function. Keep NGT in place to low intermittent suction. Cont restorative measures, remainder of care per ICU team. Time Spent With Patient Time: Total time managing care of this patient today ____ minutes. Quality Stroke Does the patient have a stroke diagnosis?: No VTE Prior VTE?: No VTE Risk Level:: Surgical - low VTE Device Contraindication: N/A - Device Ordered VTE Drug Contraindication: Treatment Not Indicated
[2023-06-05] MEDS: Caspofungin Acetate 50 MG in 0.9 % Sodium Chloride 250 ML 250 MG IV (10:18)
--- NOTE | 2023-06-05 10:27 | P.PNCC_ITS ---
Subjective Subjective Date of Service: 06/05/23 Interval History: Remains on ventilator support this morning Off propofol since yesterday, mental status improving following some commands this morning. Still remains on fentanyl drip for pain control On Levophed for vasopressor support Renal function improving, creatinine down to 1.8 urine output about 1.9litres Critical Care Time (minutes): 50 Physical Exam 2 Vital Signs: Vital Signs: Last Vital Signs Temp 100.4 F 06/05/23 10:00 Pulse 79 06/05/23 10:00 Resp 20 06/05/23 10:00 BP 115/61 06/05/23 10:00 Pulse Ox 90 L 06/05/23 10:00 O2 Del Method Mechanical Ventil ation 06/05/23 10:00 O2 Flow Rate 40 06/03/23 11:00 FiO2 30 06/05/23 10:00 BMI result Body Mass Index 41.4 Const: General: in distress, lethargic and patient obtunded O rientation/consciousness: patient obtunded and lethargic Eyes: General: appearance normal, both eyes and all related structures A lignment and Position: alignment normal Chest: Other: Bilateral air entry equal, crackles heard in bilateral lung bases Resp: Other: ET tube in place Cardio: Other: Normal S1-S2 heard, no murmur GI: Other: Soft, nontender, no organomegaly. Incision site looks okay Skin: Other: No rashes, no skin lesions Neuro: Other: On propofol for sedation, no focal deficits General: patient obtunded Objective Data Labs 06/05/23 04:42 06/05/23 04:42 Labs: Laboratory Results - last 24 hr 06/04/23 06/04/23 06/04/23 11:19 17:41 23:38 WBC RBC Hgb Hct MCV MCH MCHC RDW Plt Count MPV Immature Gran % (Auto) Neut % (Auto) Lymph % (Auto) [place] % (Auto) Eos % (Auto) Baso % (Auto) Lymph # (Auto) [place] # (Auto) Eos # (Auto) Baso # (Auto) Abs Immat Gran (auto) Absolute Neuts (auto) Absolute Nucleated RBC Nucleated RBC % (auto) Neutrophils % (Manual) Band Neutrophils % Lymphocytes % (Manual) Monocytes % (Manual) Eosinophils % (Manual) Abs Neuts (Manual) Lymphocytes # (Manual) Monocytes # (Manual) Eosinophils # (Manual) Toxic Granulation Toxic Vacuolation Dohle Bodies Platelet Estimate Large Platelets Plt Morphology Comment RBC Morphology Ovalocytes VBG pH VBG pCO2 VBG pO2 VBG HCO3 VBG O2 Saturation VBG Base Excess Sodium Potassium Chloride Carbon Dioxide Anion Gap BUN Creatinine Estim Creat Clear Calc Estimated GFR POC Glucose 131 H 129 H 123 H Random Glucose Calcium Phosphorus Magnesium Total Bilirubin AST ALT Alkaline Phosphatase Total Protein Albumin 06/05/23 06/05/23 04:42 04:47 WBC 9.4 RBC 3.16 L Hgb 9.3 L Hct 27.8 L MCV 88.0 MCH 29.4 MCHC 33.5 RDW 14.3 Plt Count 58 L D MPV 13.3 H Immature Gran % (Auto) Cancelled Neut % (Auto) Cancelled Lymph % (Auto) Cancelled [place] % (Auto) Cancelled Eos % (Auto) Cancelled Baso % (Auto) Cancelled Lymph # (Auto) Cancelled [place] # (Auto) Cancelled Eos # (Auto) Cancelled Baso # (Auto) Cancelled Abs Immat Gran (auto) Cancelled Absolute Neuts (auto) Cancelled Absolute Nucleated RBC 0.000 Nucleated RBC % (auto) 0.0 Neutrophils % (Manual) 84 H Band Neutrophils % 8 H Lymphocytes % (Manual) 6 L Monocytes % (Manual) 1 L Eosinophils % (Manual) 1 Abs Neuts (Manual) 8.6 H Lymphocytes # (Manual) 0.6 L Monocytes # (Manual) 0.1 Eosinophils # (Manual) 0.1 Toxic Granulation PRESENT Toxic Vacuolation PRESENT Dohle Bodies PRESENT Platelet Estimate DECREASED Large Platelets PRESENT Plt Morphology Comment NOTED RBC Morphology NOTED Ovalocytes 1+ (5-14) VBG pH 7.45 H VBG pCO2 39 VBG pO2 55 VBG HCO3 27 H VBG O2 Saturation 88.0 VBG Base Excess 4.0 Sodium 144 Potassium 3.4 Chloride 108 Carbon Dioxide 26 Anion Gap 13 BUN 31 H Creatinine 1.83 H Estim Creat Clear Calc 37.6 Estimated GFR 28 POC Glucose Random Glucose 142 H Calcium 8.2 L Phosphorus 3.0 Magnesium 2.0 Total Bilirubin 1.4 H AST 30 ALT 21 Alkaline Phosphatase 77 Total Protein 4.5 L Albumin 2.5 L Microbiology Microbiology Results: Microbiology 06/02/23 19:33 Blood - Venous Blood Culture - Preliminary No growth after 48 hours. 06/02/23 19:33 Blood - Venous Blood Culture - Preliminary No growth after 48 hours. 06/02/23 23:22 Urine Catheterized - [place] Catheter Urine Culture - Final No growth. 06/03/23 04:15 Abdominal Fluid Gram Stain - Final 06/03/23 04:15 Abdominal Fluid Routine Culture - Preliminary Culture in progress. 06/03/23 04:15 Abdominal Fluid Anaerobic Culture - Preliminary Culture in progress. Progress Note: A&P Assessment and plan (1) Bowel perforation: Status: Acute (2) Acute hypoxic respiratory failure: Status: Acute (3) Acute kidney injury: Status: Acute (4) Acute encephalopathy: Status: Acute (5) Septic shock: Status: Acute (6) Thrombocytopenia: Status: Acute Plan Claudette Stapleton is a 62-year-old lady with past medical history of hypertension, diabetes, neuropathy, history of pulmonary embolism in the past anticoagulation discontinued by PCP in March 2023, she had severe claudication of her lower extremities due to thoracic radiculopathy and spondylolisthesis of lumbar spine. She was admitted to the hospital for L3-L4 lumbar fusion which went uneventful on 05/31/2023. Patient remained stable hospital stay on 06/01/2023, on 06/02/2023 the patient developed hypotension, JOSE MANUEL and encephalopathy. CT of the abdomen shortness positive for bowel perforation, emergently taken to the room for a laparotomy and perforation was closed. Remains critically ill on ventilator support and vasopressor support has multiorgan failure. Neuro: Acute encephalopathy: Secondary to metabolic encephalopathy from ongoing multiorgan failure, however can not rule out gabapentin toxicity in the setting of JOSE MANUEL. Clonazepam, gabapentin, pregabalin has been discontinued. Currently on fentanyl drip for analgesia. Propofol stopped yesterday, we will discontinue fentanyl drip and we will change to as-needed fentanyl pushes. ICU delirium precautions Cardio: Septic shock: From perforated bowel, currently on Levophed support titrate to keep the map of 65 mm Hg, doses of Levophed decreasing. Bedside echo showed normal LV function slightly dilated RV, IVC 1.8 cm noncollapsible. Continue LR at 150 cc/hour given her bowel perf she needs aggressive volume resuscitation History of Pulmonary embolism: Has a history of pulmonary embolism, anticoagulation stopped By PCP in March 2023 Has elevated D-dimer, right heart dilation, dilated IVC. But bedside Doppler of the lower extremity did not show any occlusive clots Respiratory: Acute hypoxemic respiratory failure due to poor respiratory efforts from severe abdominal pain. Currently intubated and on ventilator support, PRVC mode FiO2 50%, peep 5, tidal volume 330, respiratory rate 14; peak inspiratory pressures and plateau pressures under the curve. We will try the patient on pressure support trials today and if she does very well we will extubate the patient Maintaining saturations well, pCO2 normal, pH okay. GI: CT with oral contrast showed extravasation of the concerning for perforation was emergently taken to the operating room overnight for laprotomy.. Apparently the perforation was around the site of previous gastric bypass surgery On Zosyn for antibiotic coverage, capsofungin for antifungal coverage Acute kidney injury: Baseline creatinine around 0.8, increased to peak of 3.08, currently is trending down, down to 1.83 this morning. Good urine output about 1900 cc. Possibly due to ATN as a component of multiorgan failure including multiple episodes of hypotension. Improving with improvement in disease process No indication for renal replacement therapy Closely monitor I's and O's Severe metabolic acidosis: Secondary to severe JOSE MANUEL Continue LR drip at 150 cc an hour Infectious disease: pancultures negative so far; on Zosyn for bowel perforation, capsofungin for antifungal coverage Thrombocytopenia: Possibly secondary to septic shock and medications We will continue to closely monitor If the platelet count drops below 50,000 tomorrow we will withhold the prophylactic heparin. Endocrine: Blood sugars are under control Sliding scale insulin as needed Lines: right IJ TLC placed on 06/03/2023 [place] catheter Prophylaxis: Heparin, pantoprazole Quality Stroke Does the patient have a stroke diagnosis?: No VTE Prior VTE?: No VTE Risk Level:: Surgical - low VTE Device Contraindication: N/A - Device Ordered VTE Drug Contraindication: Treatment Not Indicated
[2023-06-05 11:56] LABS: Glucose, Whole Blood 116 mg/dL (60-115)
--- NOTE | 2023-06-05 17:23 | HO.NEURO.PN ---
Neurosurgery Operative Note Date of Service: 06/05/23 Narrative: Procedure: L3-4 Oblique Lumbar Interbody Fusion POD: 5 Mrs. Stapleton was seen this morning in 255 in the ICU. She remains intubated and on vasopressors Zosyn, and caspofungin. Peep @ 5.4. Her propofol has been discontinued, and her fentanyl was discontinued a few hours ago. She is still relatively sedated. She does seem to be doing better, and is opening her eyes, localizing stimuli, and following some one-step commands (such as hand supervisor opening and picking and wiggling her toes). GCS 9 (on vent, no verbal response testable). I spoke with the attending [employer] who reports she is likely going to be extubated tomorrow if her condition continues to improve. When they rolled her earlier today the incision sites appeared clean, dry, without erythema or signs of infection. She is afebrile, and the rest of her vitals appear stable. Her creatinine has decreased to 1.8, which is reassuring for kidney function & resolution of her JOSE MANUEL. A full neurological exam was not possible due to her current condition, but she appears to be markedly improving. We will continue to follow her for updates and will provide recs as needed. Pravin Cat MD,PhD [facility]
[2023-06-05 17:42] LABS: Glucose, Whole Blood 113 mg/dL (60-115)
[2023-06-05] MEDS: fentaNYL citrate/PF 100 MCG/2 ML VIAL 25 MCG IVPUSH (20:20)
[2023-06-05] MEDS: Acetaminophen 1,000 MG/100 ML PIGGYBACK 400 MG IV (23:22)
[2023-06-05 23:48] LABS: Glucose, Whole Blood 103 mg/dL (60-115)
[2023-06-06] VITALS (30 sets, daily range): BP systolic 114–155; BP diastolic 56–88; PULSE 74–115; RESP 17–37; TEMP 34.6–38.8; O2SAT 89–97; BMI 40.6
[2023-06-06] MEDS: fentaNYL citrate/PF 100 MCG/2 ML VIAL 25 MCG IVPUSH ×3 (02:07→16:42)
[2023-06-06 04:58] LABS: VBG Base Excess 4.9 mmol/L; VBG HCO3 27 mmol/L (22-26); VBG pCO2 33 mmHg; VBG pH 7.52 (7.32-7.43); VBG pO2 66 mmHg
[2023-06-06 05:00] LABS: Eosinophils Absolute Auto 0.2 X10*3/uL (0.0-0.4); Imm Gran Abs Auto 0.11 X10*3/uL (0.00-0.03); Lymphocytes Percent Auto 6.5 % (20-40); Mean Corpuscular Volume 88.5 fL (80.0-98.0); Mean Platelet Volume 13.4 fL (9.4-12.3); PLT ABN DIST 1; SCAN SMEAR FLAG 1
[2023-06-06 05:00] LABS: Venous Blood Gas Refer to POC result
[2023-06-06 05:02] LABS: Basophils Percent Auto 0.4 % (0-2); Eosinophils Percent Auto 2.5 % (0-4); Hematocrit 25.3 % (37.0-47.0); Hemoglobin 8.4 g/dl (12.0-16.0); Imm Gran Pct Auto 1.4 % (0.0-0.4); Lymphocytes Absolute Auto 0.5 X10*3/uL (1.2-4.9); Mean Corpuscular HGB Conc 33.2 g/dl (31.0-35.0); Mean Corpuscular Hemoglobin 29.4 pg (27.0-33.0); Monocytes Absolute Auto 0.4 X10*3/uL (0.1-1.2); Monocytes Percent Auto 4.8 % (2-11); NRBC Pct Auto 0.3 /100WBC (0.0-0.2); Neutrophils Absolute Auto 6.7 x10*3/uL (2.0-8.3); Neutrophils Percent Auto 84.4 % (45-73); Platelet Count 40 X10*3/uL (160-400); Red Blood Count 2.86 X10*6/uL (4.20-5.50); Red Cell Distribution Width 14.5 % (11.0-16.0); White Blood Count 7.9 X10*3/uL (4.8-10.8)
[2023-06-06 05:03] LABS: MANUAL DIFF FLAG NO
[2023-06-06] MEDS: Piperacillin Sodium/Tazobactam 3.375 GM in 0.9 % Sodium Chloride 50 ML IV ×3 (05:08→17:18)
[2023-06-06] MEDS: Pantoprazole Sodium 40 MG/10 ML VIAL IVPUSH (05:10)
[2023-06-06 05:16] LABS: Alanine Aminotransferase 20 U/L (0-31); Albumin Level 3.1 g/dL (3.5-5.0); Alkaline Phosphatase 87 U/L (39-117); Anion Gap 14 (12-20); Aspartate Amino Transferase 23 U/L (5-31); Bilirubin Total 2.1 mg/dL (0.0-1.0); Blood Urea Nitrogen 28 mg/dL (9-16); Calcium 8.4 mg/dL (8.4-10.2); Carbon Dioxide 24 mmol/L (22-29); Chloride 111 mmol/L (96-108); Creatinine Clr Calc Pharmacy 52.8; Estimated Glomerular Filt Rate 41; Glucose Random 100 mg/dL (60-115); Sodium 146 mmol/L (135-145); Total Protein 4.9 g/dL (6.5-8.0)
[2023-06-06] MEDS: Potassium Chloride/H20 40 MEQ/100 ML PIGGYBACK 50 MEQ IV (05:59)
[2023-06-06] MEDS: Chlorhexidine Gluc Oral Rinse 15 ML MOUTHWASH BUCCAL ×3 (07:37→21:50)
[2023-06-06] MEDS: Albuterol/Iprat 2.5/0.5MG 3 ML AMPUL.NEB INHALE ×4 (07:40→19:20)
--- NOTE | 2023-06-06 08:38 | PM.PNGS ---
Subjective Subjective Date of Service: 06/06/23 Interval history: Patient remains intubated, off sedation. She seems to be responding more today. Physical Exam Vital Signs: Vital Signs: Last Vital Signs Temp 101.7 F H 06/06/23 08:00 Pulse 95 06/06/23 08:00 Resp 22 H 06/06/23 08:00 BP 139/67 06/06/23 08:00 Pulse Ox 91 L 06/06/23 08:00 O2 Del Method Mechanical Ventil ation 06/06/23 08:00 O2 Flow Rate 40 06/03/23 11:00 FiO2 30 06/06/23 08:00 BMI result Body Mass Index 40.6 Const: Other: Responding to voice General: ill appearing Nutritional Appearance: obese Resp: Other: Intubated GI: Other: Softly distended, non tympanitic, midline incision clean, dry, without erythema. Skin: Other: Warm and dry Objective Data Active Medications Albuterol Sulfate (Albuterol Sulfate (0.083%) 2.5 Mg/3 Ml Vial.Neb) 2.5 mg INHALE ONCE PRN PRN Reason: Shortness of Breath/Wheezing Albuterol Sulfate (Albuterol Sulfate 90 Mcg 8 Gm Inhaler) 2 puff INHALE Q6H PRN PRN Reason: Shortness Of Breath Albuterol/Ipratropium (Albuterol/Iprat 2.5/0.5mg 3 Ml Ampul.Neb) 3 ml INHALE RQ4H WHILE AWAKE [facility] Last Admin: 06/06/23 07:40 Dose: 3 ml Documented By: CHELO Chlorhexidine Gluconate (Chlorhexidine Gluc Oral Rinse 15 Ml Mouthwash) 15 ml BUCCAL TID [facility] Last Admin: 06/06/23 07:37 Dose: 15 ml Documented By: MOSHE Clonazepam (Clonazepam 1 Mg Tablet) 1 mg PO TID [facility] Last Admin: 06/02/23 14:06 Dose: Not Given Documented By: RAVEN Non-Admin Reason: pt lethargic Fentanyl (Fentanyl Citrate/Pf 100 Mcg/2 Ml Vial) 25 mcg IVPUSH Q2H PRN; Protocol PRN Reason: Pain, Moderate(Pain Scale 4-6) Last Admin: 06/06/23 07:36 Dose: 25 mcg Documented By: MOSHE Fluticasone/Vilanterol (Fluticasone/Vilanterol 200/25 Blst.W.Dev) 1 puff INHALE RDAILY [facility] Last Admin: 06/02/23 08:43 Dose: 1 puff Documented By: DONNA Furosemide (Furosemide 20 Mg Tablet) 20 mg PO DAILY [facility]; Protocol Last Admin: 06/02/23 11:05 Dose: Not Given Documented By: RAVEN Non-Admin Reason: Decreased Blood Pressure Gabapentin (Gabapentin 400 Mg Capsule) 800 mg PO BID [facility] Last Admin: 06/02/23 11:03 Dose: 800 mg Documented By: RAVEN Glucose (Glucose Gel 15 Gm Gel..Gram.) 15 gm PO Q15M PRN; Protocol PRN Reason: per Hypoglycemia Standing Ord. Dextrose (D10) 250 mls @ 750 mls/hr IV Q15M PRN; Protocol PRN Reason: per Hypoglycemia Standing Ord. Piperacillin Sod/Tazobactam (Sod 3.375 gm/ Sodium Chloride) 50 mls @ 100 mls/hr IV Q6H [facility] Last Infusion: 06/06/23 05:45 Dose: Infused Documented By: DIANNE Propofol (Diprivan) 1,000 mg in 100 mls @ 0 mls/hr IVCONT .Q0M MIKE; Protocol Last Titration: 06/04/23 12:20 Dose: Infused Documented By: REYNALDO Norepinephrine Bitartrate (Levophed) 8 mg in 250 mls @ 0 mls/hr IV .Q0M MIKE; Protocol Last Titration: 06/05/23 14:02 Dose: Infused Documented By: REYNALDO Fentanyl (Sublimaze/Ns) 1,000 mcg in 100 mls @ 0 mls/hr IVCONT .Q0M MIKE; Protocol Last Titration: 06/05/23 14:02 Dose: Infused Documented By: REYNALDO Caspofungin 50 mg/ Sodium (Chloride) 250 mls @ 250 mls/hr IV Q24H [facility] Last Infusion: 06/05/23 11:26 Dose: Infused Documented By: REYNALDO Insulin Human Lispro (Insulin Lispro 100 Unit/Ml 3 Ml Vial) 0 unit SUBCUT Q6H [facility]; Protocol Last Admin: 06/06/23 05:30 Dose: Not Given Documented By: DIANNE Non-Admin Reason: No Insulin Coverage Lactulose (Lactulose 20 Gm/30 Ml Solution) 10 gm PO DAILY [facility] Last Admin: 06/02/23 11:04 Dose: 10 gm Documented By: RAVEN Naloxone HCl (Naloxone Hcl 0.4 Mg/Ml Vial) 0.2 mg IVPUSH Q2M PRN PRN Reason: Excessive sedation or RR < 8 Non-Formulary Medication (Bupropion Hcl) 100 mg PO QAM [facility] Ondansetron HCl (Ondansetron Hcl 4 Mg/2 Ml Vial) 4 mg IVPUSH Q6H PRN PRN Reason: Nausea and Vomiting Pantoprazole Sodium (Pantoprazole Sodium 40 Mg/10 Ml Vial) 40 mg IVPUSH DAILY@0630 [facility] Last Admin: 06/06/23 05:10 Dose: 40 mg Documented By: DIANNE Pharmacy Consult (Consult Rx Vancomycin Dosing) 1 each MISCELLANE DAILY PRN PRN Reason: Consult order Polyethylene Glycol (Polyethylene Glycol 3350 17 Gm Powd.Pack) 17 gm PO DAILY PRN PRN Reason: constipation Pramipexole Dihydrochloride (Pramipexole Di-Hcl 0.25 Mg Tablet) 0.25 mg PO DAILY [facility] Last Admin: 06/06/23 08:15 Dose: Not Given Documented By: MOSHE Non-Admin Reason: NPO Senna (Sennosides 8.6 Mg Tablet) 8.6 mg PO BEDTIME [facility] Last Admin: 06/05/23 20:51 Dose: Not Given Documented By: DIANNE Non-Admin Reason: Held per PA Topiramate (Topiramate 100 Mg Tablet) 100 mg PO BID [facility] Last Admin: 06/06/23 08:15 Dose: Not Given Documented By: MOSHE Non-Admin Reason: NPO Vortioxetine (Vortioxetine Hydrobromide 20 Mg Tablet) 20 mg PO DAILY [facility] Last Admin: 06/06/23 08:15 Dose: Not Given Documented By: MOSHE Non-Admin Reason: NPO Labs 06/06/23 04:53 06/06/23 04:53 Labs: Laboratory Results - last 24 hr 06/05/23 06/05/23 06/05/23 11:53 17:39 23:40 MCV MCH MCHC RDW Plt Count MPV Immature Gran % (Auto) Neut % (Auto) Lymph % (Auto) [place] % (Auto) Eos % (Auto) Baso % (Auto) Lymph # (Auto) [place] # (Auto) Eos # (Auto) Baso # (Auto) Abs Immat Gran (auto) Absolute Neuts (auto) Absolute Nucleated RBC Nucleated RBC % (auto) VBG pH VBG pCO2 VBG pO2 VBG HCO3 VBG O2 Saturation VBG Base Excess Anion Gap Estim Creat Clear Calc Estimated GFR POC Glucose 116 H 113 103 Random Glucose Calcium Total Bilirubin AST ALT Alkaline Phosphatase Total Protein Albumin 06/06/23 06/06/23 04:49 04:53 MCV 88.5 MCH 29.4 MCHC 33.2 RDW 14.5 Plt Count 40 L D MPV 13.4 H Immature Gran % (Auto) 1.4 H Neut % (Auto) 84.4 H Lymph % (Auto) 6.5 L [place] % (Auto) 4.8 Eos % (Auto) 2.5 Baso % (Auto) 0.4 Lymph # (Auto) 0.5 L [place] # (Auto) 0.4 Eos # (Auto) 0.2 Baso # (Auto) 0.0 Abs Immat Gran (auto) 0.11 H Absolute Neuts (auto) 6.7 Absolute Nucleated RBC 0.020 H Nucleated RBC % (auto) 0.3 H VBG pH 7.52 H VBG pCO2 33 VBG pO2 66 VBG HCO3 27 H VBG O2 Saturation 95.0 VBG Base Excess 4.9 Anion Gap 14 Estim Creat Clear Calc 52.8 Estimated GFR 41 POC Glucose Random Glucose 100 Calcium 8.4 Total Bilirubin 2.1 H AST 23 ALT 20 Alkaline Phosphatase 87 Total Protein 4.9 L Albumin 3.1 L Microbiology Microbiology Results: Microbiology 06/03/23 04:15 Gram Stain - Final Abdominal Fluid Routine Culture - Final Anaerobic Culture - Preliminary Culture in progress. Procedures Date of Service Date of Service: 06/06/23 Progress Note: A&P Assessment and plan (1) Bowel perforation: Status: Acute (2) Perforated ulcer: Status: Acute Plan 62-year-old female patient status post recent back surgery now with perforated ulcer at Pamela-en-Y anastomosis. Patient status post exploratory laparotomy with plication of ulcer. Patient febrile this morning but does seem more awake now off sedation. Appreciate ICU management. Continue IV antibiotic and antifungal management. Time Spent With Patient Time: Total time managing care of this patient today ____ minutes. Quality Stroke Does the patient have a stroke diagnosis?: No VTE Prior VTE?: No VTE Risk Level:: Surgical - low VTE Device Contraindication: N/A - Device Ordered VTE Drug Contraindication: Treatment Not Indicated
[2023-06-06] MEDS: Caspofungin Acetate 50 MG in 0.9 % Sodium Chloride 250 ML 250 MG IV (11:11)
[2023-06-06 11:23] LABS: Glucose, Whole Blood 107 mg/dL (60-115)
--- NOTE | 2023-06-06 13:18 | PM.CCPN ---
Subjective Subjective Date of Service: 06/06/23 Interval History: Continues to be on ventilator support this morning. Unstable doses of vasopressor support Off sedation Labs improving Critical Care Time (minutes): 50 Physical Exam Vital Signs: Vital Signs: Last Vital Signs Temp 101.5 F H 06/06/23 12:00 Pulse 85 06/06/23 13:00 Resp 27 H 06/06/23 13:00 BP 128/66 06/06/23 13:00 Pulse Ox 92 06/06/23 13:00 O2 Del Method Mechanical Ventil ation 06/06/23 13:00 O2 Flow Rate 40 06/03/23 11:00 FiO2 40 06/06/23 13:00 BMI result Body Mass Index 40.6 Const: General: awake, acute distress and tired appearing HEENT: Head: Yes normal to inspection, Yes No palpable skull fracture present and Yes normocephalic Chest: Other: Bilateral air entry equal, crackles heard in lung bases Cardio: Other: S1-S2 normal, no murmur heard GI: Other: Incision site looks okay, soft, distended : General: Yes bladder normal to inspection and Yes bladder normal to palpation Bimanual exam- vagina & uterus: bladder normal to palpation Neuro: Other: No focal deficits, drowsy, following some commands Objective Data Labs 06/06/23 04:53 06/06/23 04:53 Labs: Laboratory Results - last 24 hr 06/05/23 06/05/23 06/06/23 17:39 23:40 04:49 WBC RBC Hgb Hct MCV MCH MCHC RDW Plt Count MPV Immature Gran % (Auto) Neut % (Auto) Lymph % (Auto) [place] % (Auto) Eos % (Auto) Baso % (Auto) Lymph # (Auto) [place] # (Auto) Eos # (Auto) Baso # (Auto) Abs Immat Gran (auto) Absolute Neuts (auto) Absolute Nucleated RBC Nucleated RBC % (auto) VBG pH 7.52 H VBG pCO2 33 VBG pO2 66 VBG HCO3 27 H VBG O2 Saturation 95.0 VBG Base Excess 4.9 Sodium Potassium Chloride Carbon Dioxide Anion Gap BUN Creatinine Estim Creat Clear Calc Estimated GFR POC Glucose 113 103 Random Glucose Calcium Total Bilirubin AST ALT Alkaline Phosphatase Total Protein Albumin 06/06/23 06/06/23 04:53 11:16 WBC 7.9 RBC 2.86 L Hgb 8.4 L Hct 25.3 L MCV 88.5 MCH 29.4 MCHC 33.2 RDW 14.5 Plt Count 40 L D MPV 13.4 H Immature Gran % (Auto) 1.4 H Neut % (Auto) 84.4 H Lymph % (Auto) 6.5 L [place] % (Auto) 4.8 Eos % (Auto) 2.5 Baso % (Auto) 0.4 Lymph # (Auto) 0.5 L [place] # (Auto) 0.4 Eos # (Auto) 0.2 Baso # (Auto) 0.0 Abs Immat Gran (auto) 0.11 H Absolute Neuts (auto) 6.7 Absolute Nucleated RBC 0.020 H Nucleated RBC % (auto) 0.3 H VBG pH VBG pCO2 VBG pO2 VBG HCO3 VBG O2 Saturation VBG Base Excess Sodium 146 H Potassium 3.0 L Chloride 111 H Carbon Dioxide 24 Anion Gap 14 BUN 28 H Creatinine 1.32 Estim Creat Clear Calc 52.8 Estimated GFR 41 POC Glucose 107 Random Glucose 100 Calcium 8.4 Total Bilirubin 2.1 H AST 23 ALT 20 Alkaline Phosphatase 87 Total Protein 4.9 L Albumin 3.1 L Microbiology Microbiology Results: Microbiology 06/03/23 04:15 Abdominal Fluid Gram Stain - Final 06/03/23 04:15 Abdominal Fluid Routine Culture - Final 06/03/23 04:15 Abdominal Fluid Anaerobic Culture - Preliminary Culture in progress. 06/02/23 19:33 Blood - Venous Blood Culture - Preliminary No growth after 48 hours. 06/02/23 19:33 Blood - Venous Blood Culture - Preliminary No growth after 48 hours. 06/02/23 23:22 Urine Catheterized - [place] Catheter Urine Culture - Final No growth. Progress Note: A&P Assessment and plan (1) Acute hypoxic respiratory failure: Status: Acute (2) Septic shock: Status: Acute (3) Bowel perforation: Status: Acute (4) Perforated ulcer: Status: Acute (5) Acute kidney injury: Status: Acute Assessment and Plan: Claudette Stapleton is a 62-year-old lady with past medical history of hypertension, diabetes, neuropathy, history of pulmonary embolism in the past anticoagulation discontinued by PCP in March 2023, she had severe claudication of her lower extremities due to thoracic radiculopathy and spondylolisthesis of lumbar spine. She was admitted to the hospital for L3-L4 lumbar fusion which went uneventful on 05/31/2023. Patient remained stable hospital stay on 06/01/2023, on 06/02/2023 the patient developed hypotension, JOSE MANUEL and encephalopathy. CT of the abdomen shortness positive for bowel perforation, emergently taken to the room for a laparotomy and perforation was closed. Remains critically ill on ventilator support and vasopressor support has multiorgan failure including acute respiratory failure on ventilator, JOSE MANUEL that is improving, septic shock on stable doses of vasopressor support. Neuro: Acute encephalopathy: Secondary to metabolic encephalopathy from ongoing multiorgan failure, however can not rule out gabapentin toxicity in the setting of JOSE MANUEL. Clonazepam, gabapentin, pregabalin has been discontinued. Currently on as needed pushes of fentanyl for analgesia ICU delirium precautions Cardio: Septic shock: From perforated bowel, currently on Levophed support titrate to keep the map of 65 mm Hg, doses of Levophed decreasing. Bedside echo showed normal LV function slightly dilated RV, IVC 1.8 cm noncollapsible. LR at 150 cc/hour given her bowel perf she needs aggressive volume resuscitation, has good urine output, we will decrease the fluids to 75 cc/hour History of Pulmonary embolism: Has a history of pulmonary embolism, anticoagulation stopped By PCP in March 2023 Has elevated D-dimer, right heart dilation, dilated IVC. But bedside Doppler of the lower extremity did not show any occlusive clots Respiratory: Acute hypoxemic respiratory failure due to poor respiratory efforts from severe abdominal pain. On pressor support since yesterday, doing well pulling volumes around 300-400 rates and 20s. Possibly we will extubate the patient today. Maintaining saturations well, pCO2 normal, pH okay. GI: CT with oral contrast showed extravasation of the concerning for perforation was emergently taken to the operating room overnight for laprotomy.. Apparently the perforation was around the site of previous gastric bypass surgery. On Zosyn for antibiotic coverage, capsofungin for antifungal coverage Acute kidney injury: Improving Baseline creatinine around 0.8, increased to peak of 3.08, currently is trending down, down to 1.32. Good urine output about 1900 cc. Possibly due to ATN as a component of multiorgan failure and episodes of hypotension No indication for renal replacement therapy Closely monitor I's and O's Severe metabolic acidosis: Resolved Infectious disease: pancultures negative so far; on Zosyn for bowel perforation, capsofungin for antifungal coverage Thrombocytopenia: Possibly secondary to septic shock and medications We will continue to closely monitor Concerning for worsening sepsis, patient is already on Zosyn and caspofungin. MRSA nares negative Endocrine: Blood sugars are under control Sliding scale insulin as needed Lines: right IJ TLC placed on 06/03/2023 [place] catheter Prophylaxis: We will stop heparin due to thrombocytopenia SCD, pantoprazole Quality Stroke Does the patient have a stroke diagnosis?: No VTE Prior VTE?: No VTE Risk Level:: Surgical - low VTE Device Contraindication: N/A - Device Ordered VTE Drug Contraindication: Treatment Not Indicated
[2023-06-06 17:26] LABS: Glucose, Whole Blood 112 mg/dL (60-115)
[2023-06-06] MEDS: Albuterol Sulfate (0.083%) 2.5 MG/3 ML VIAL.NEB INHALE (23:50)
[2023-06-07] VITALS (37 sets, daily range): BP systolic 108–182; BP diastolic 60–111; PULSE 73–118; RESP 21–44; TEMP 37.8–38.7; O2SAT 85–99; BMI 41.0
--- NOTE | 2023-06-07 | ECG_ITS ---
Test Reason : chest pain Blood Pressure : / mmHG Vent. Rate : 120 BPM Atrial Rate : 120 BPM P-R Int : 118 ms QRS Dur : 086 ms QT Int : 296 ms P-R-T Axes : 022 -04 017 degrees QTc Int : 418 ms Artifact in tracing Sinus tachycardia Cannot rule out Anterior infarct , age undetermined Abnormal ECG No previous ECGs available Referred By: Margarita Brown Electronically Signed By:GEOFF ALVAREZ
[2023-06-07 00:01] LABS: VBG Base Excess -2.5 mmol/L; VBG HCO3 22 mmol/L (22-26); VBG pCO2 39 mmHg; VBG pH 7.36 (7.32-7.43); VBG pO2 55 mmHg
[2023-06-07 00:17] LABS: Glucose, Whole Blood 126 mg/dL (60-115)
[2023-06-07 00:23] LABS: Alanine Aminotransferase 25 U/L (0-31); Albumin Level 3.5 g/dL (3.5-5.0); Alkaline Phosphatase 123 U/L (39-117); Anion Gap 18 (12-20); Aspartate Amino Transferase 24 U/L (5-31); Bilirubin Total 1.8 mg/dL (0.0-1.0); Blood Urea Nitrogen 28 mg/dL (9-16); Carbon Dioxide 21 mmol/L (22-29); Chloride 112 mmol/L (96-108); Creatinine Clr Calc Pharmacy 62.2; Estimated Glomerular Filt Rate 49; Glucose Random 128 mg/dL (60-115); Potassium 3.3 mmol/L (3.3-5.1); Sodium 148 mmol/L (135-145)
[2023-06-07 00:33] LABS: Venous Blood Gas Refer to POC result
[2023-06-07] MEDS: Piperacillin Sodium/Tazobactam 3.375 GM in 0.9 % Sodium Chloride 50 ML IV ×4 (00:37→17:39)
[2023-06-07] MEDS: Acetaminophen Oral Liquid 650 MG/20.3 ML SOLUTION PO (00:42)
[2023-06-07] MEDS: fentaNYL citrate/PF 100 MCG/2 ML VIAL 25 MCG IVPUSH (01:26)
[2023-06-07 05:17] LABS: VBG Base Excess -2.2 mmol/L; VBG HCO3 20 mmol/L (22-26); VBG pCO2 26 mmHg; VBG pH 7.48 (7.32-7.43); VBG pO2 65 mmHg
[2023-06-07 05:18] LABS: Venous Blood Gas Refer to POC result
[2023-06-07 05:50] LABS: Basophils Absolute Auto 0.1 X10*3/uL (0.0-0.2); Basophils Percent Auto 0.6 % (0-2); Hemoglobin 9.1 g/dl (12.0-16.0); Mean Corpuscular Volume 90.3 fL (80.0-98.0); PLT ABN DIST 1; SCAN SMEAR FLAG 1
[2023-06-07 05:53] LABS: Eosinophils Percent Auto 0.1 % (0-4); Hematocrit 27.9 % (37.0-47.0); Imm Gran Abs Auto 0.23 X10*3/uL (0.00-0.03); Imm Gran Pct Auto 2.2 % (0.0-0.4); Lymphocytes Absolute Auto 0.6 X10*3/uL (1.2-4.9); Lymphocytes Percent Auto 5.7 % (20-40); MANUAL DIFF FLAG NO; Mean Corpuscular HGB Conc 32.6 g/dl (31.0-35.0); Mean Corpuscular Hemoglobin 29.4 pg (27.0-33.0); Monocytes Absolute Auto 0.9 X10*3/uL (0.1-1.2); Monocytes Percent Auto 8.2 % (2-11); Neutrophils Absolute Auto 8.8 x10*3/uL (2.0-8.3); Neutrophils Percent Auto 83.2 % (45-73); Platelet Count 63 X10*3/uL (160-400); Red Blood Count 3.09 X10*6/uL (4.20-5.50); Red Cell Distribution Width 14.7 % (11.0-16.0); White Blood Count 10.6 X10*3/uL (4.8-10.8)
[2023-06-07] MEDS: Pantoprazole Sodium 40 MG/10 ML VIAL IVPUSH (05:58)
[2023-06-07 06:06] LABS: Alanine Aminotransferase 22 U/L (0-31); Alkaline Phosphatase 102 U/L (39-117); Anion Gap 17 (12-20); Aspartate Amino Transferase 19 U/L (5-31); Bilirubin Total 1.5 mg/dL (0.0-1.0); Blood Urea Nitrogen 29 mg/dL (9-16); Calcium 8.7 mg/dL (8.4-10.2); Carbon Dioxide 21 mmol/L (22-29); Chloride 114 mmol/L (96-108); Creatinine Clr Calc Pharmacy 72.3; Estimated Glomerular Filt Rate 58; Glucose Random 166 mg/dL (60-115); Magnesium 1.9 mg/dL (1.6-2.6); Phosphorus 2.5 mg/dL (2.7-4.5); Potassium 3.1 mmol/L (3.3-5.1); Sodium 149 mmol/L (135-145); Total Protein 5.4 g/dL (6.5-8.0)
--- NOTE | 2023-06-07 06:44 | PC.NURSE ---
Assumed care of patient at 23:15. Pt is A&Ox3. Forgetful and anxious, frequently calling out of room with many different requests without using call liu despite frequent education and redirecting. Pt febrile, tachycardic 110's, desatting with activity. 1x liquid tylenol ordered and given for fever which pt tolerated without issue. Sepsis workup discussed though deferred by PA. Nursing bedside swallow attempted per PA though pt failed (see nursing bedside swallow task for full details); discussed with PA Eris Hamilton and RN requested ST eval. NPO maintained. On q6h POCs with ISS held while NPO. Pt had increasing WOB early this morning and was placed on bipap by respiratory therapy and given prn fentanyl per PA request/orders. +Effect with improvements in RR and WOB; Bipap settings able to be adjusted this morning by respiratory and pt has been tolerating without issues. Breathing has been even and unlabored without distress. NGT remains to LWS in left nare with scant brown output noted in tubing/none in canister. Surgical incisions are c/d/i without redness or drainage. Initially sinus tach 110's when febrile, improved to NSR 80's. Denies chest pain. [place] patent of odorless cyu in adequate amounts. Minnie-care provided per protocol. Please see shift assessments, vitals, tasks, and EMAR for full details. Handoff report given to oncoming RN at 06:50.
[2023-06-07] MEDS: Albuterol/Iprat 2.5/0.5MG 3 ML AMPUL.NEB INHALE ×4 (07:23→18:52)
[2023-06-07] MEDS: Potassium Phosphate/NS 15 MMOL/250 ML PLAST..BAG 62.5 MMOL IV ×2 (08:39→12:29)
--- NOTE | 2023-06-07 08:43 | PC.NURSE ---
Addendum entered by Ritesh Amaro RN 06/08/23 08:13: NGT d/c'ed per OR PA. Addendum entered by Ritesh Amaro RN 06/07/23 18:10: pt RR increased, c/o chest pressure and began to desat despite increasing hi-flow O2. RT and MD informed. ECG obtained. meds administered as ordered. pt's at bedside and pt placed back on bipap. Addendum entered by Ritesh Amaro RN 06/07/23 16:23: pt is now strict npo d/t having an episode of coughing after having ice chips Addendum entered by Ritesh Amaro RN 06/07/23 16:17: per ok to perform bedside swallow eval and give pt ice chips . pt passed bedside swallow eval Addendum entered by Ritesh Amaro RN 06/07/23 15:46: pt repositioning herself in bed. refused to be repo'ed by staff at times. mouth care provided throughout the shift. speech therapy to evaluate pt tomorrow d/t pt being on biapap today Original Note: pt tachypneic RR 40, tachy HR 130s and SBP 160-180s while on oxymask. MD informed. per md place pt back on bipap. RT informed.
--- NOTE | 2023-06-07 08:46 | P.PNGS_ITS ---
Subjective Subjective Date of Service: 06/07/23 Interval history: Extubated, was on bipap this morning now on oxymask. Asking for water. Physical Exam 2 Vital Signs: Vital Signs: Last Vital Signs Temp 100.9 F H 06/07/23 08:00 Pulse 112 H 06/07/23 08:00 Resp 40 H 06/07/23 08:00 BP 182/107 H 06/07/23 08:00 Pulse Ox 90 L 06/07/23 08:00 O2 Del Method Oxymask 06/07/23 08:00 O2 Flow Rate 10 06/07/23 08:00 FiO2 24 06/07/23 07:00 BMI result Body Mass Index 41.0 Const: General: alert Resp: Effort & Inspection: tachypneic GI: Inspection: Yes distended (mildly ) and Yes incision (clean) Palpation (GI): Soft to palpation, Tenderness to palpation present (GI) and no guarding : Other: cordero in place Skin: General skin exam: no rashes or lesions noted Objective Data Active Medications Albuterol Sulfate (Albuterol Sulfate (0.083%) 2.5 Mg/3 Ml Vial.Neb) 2.5 mg INHALE ONCE PRN PRN Reason: Shortness of Breath/Wheezing Last Admin: 06/06/23 23:50 Dose: 2.5 mg Documented By: ISMAEL Albuterol Sulfate (Albuterol Sulfate 90 Mcg 8 Gm Inhaler) 2 puff INHALE Q6H PRN PRN Reason: Shortness Of Breath Albuterol/Ipratropium (Albuterol/Iprat 2.5/0.5mg 3 Ml Ampul.Neb) 3 ml INHALE RQ4H WHILE AWAKE [facility] Last Admin: 06/07/23 07:23 Dose: 3 ml Documented By: DONNA Chlorhexidine Gluconate (Chlorhexidine Gluc Oral Rinse 15 Ml Mouthwash) 15 ml BUCCAL TID [facility] Last Admin: 06/07/23 07:43 Dose: Not Given Documented By: LAMAR Non-Admin Reason: pt on bipap Clonazepam (Clonazepam 1 Mg Tablet) 1 mg PO TID [facility] Last Admin: 06/02/23 14:06 Dose: Not Given Documented By: RAVEN Non-Admin Reason: pt lethargic Fentanyl (Fentanyl Citrate/Pf 100 Mcg/2 Ml Vial) 25 mcg IVPUSH Q2H PRN; Protocol PRN Reason: pain and distress Last Admin: 06/07/23 01:26 Dose: 25 mcg Documented By: DELFIN Fluticasone/Vilanterol (Fluticasone/Vilanterol 200/25 Blst.W.Dev) 1 puff INHALE RDAILY [facility] Last Admin: 06/02/23 08:43 Dose: 1 puff Documented By: DONNA Furosemide (Furosemide 20 Mg Tablet) 20 mg PO DAILY [facility]; Protocol Last Admin: 06/02/23 11:05 Dose: Not Given Documented By: RAVEN Non-Admin Reason: Decreased Blood Pressure Gabapentin (Gabapentin 400 Mg Capsule) 800 mg PO BID [facility] Last Admin: 06/02/23 11:03 Dose: 800 mg Documented By: RAVEN Glucose (Glucose Gel 15 Gm Gel..Gram.) 15 gm PO Q15M PRN; Protocol PRN Reason: per Hypoglycemia Standing Ord. Dextrose (D10) 250 mls @ 750 mls/hr IV Q15M PRN; Protocol PRN Reason: per Hypoglycemia Standing Ord. Piperacillin Sod/Tazobactam (Sod 3.375 gm/ Sodium Chloride) 50 mls @ 100 mls/hr IV Q6H [facility] Last Infusion: 06/07/23 06:29 Dose: Infused Documented By: DELFIN Propofol (Diprivan) 1,000 mg in 100 mls @ 0 mls/hr IVCONT .Q0M MIKE; Protocol Last Titration: 06/04/23 12:20 Dose: Infused Documented By: REYNALDO Norepinephrine Bitartrate (Levophed) 8 mg in 250 mls @ 0 mls/hr IV .Q0M MIKE; Protocol Last Titration: 06/05/23 14:02 Dose: Infused Documented By: REYNALDO Fentanyl (Sublimaze/Ns) 1,000 mcg in 100 mls @ 0 mls/hr IVCONT .Q0M MIKE; Protocol Last Titration: 06/05/23 14:02 Dose: Infused Documented By: REYNALDO Caspofungin 50 mg/ Sodium (Chloride) 250 mls @ 250 mls/hr IV Q24H [facility] Last Infusion: 06/06/23 12:16 Dose: Infused Documented By: MOSHE Potassium Phosphate (Kphos) 15 mmol in 250 mls @ 62.5 mls/hr IV Q4H [facility] Stop: 06/07/23 15:59 Last Admin: 06/07/23 08:39 Dose: 62.5 mls/hr Documented By: LAMAR Insulin Human Lispro (Insulin Lispro 100 Unit/Ml 3 Ml Vial) 0 unit SUBCUT Q6H [facility]; Protocol Last Admin: 06/07/23 06:22 Dose: Not Given Documented By: DELFIN Non-Admin Reason: NPO Comments: not on IV fluids or nutrition Lactulose (Lactulose 20 Gm/30 Ml Solution) 10 gm PO DAILY [facility] Last Admin: 06/02/23 11:04 Dose: 10 gm Documented By: RAVEN Naloxone HCl (Naloxone Hcl 0.4 Mg/Ml Vial) 0.2 mg IVPUSH Q2M PRN PRN Reason: Excessive sedation or RR < 8 Non-Formulary Medication (Bupropion Hcl) 100 mg PO QAM [facility] Ondansetron HCl (Ondansetron Hcl 4 Mg/2 Ml Vial) 4 mg IVPUSH Q6H PRN PRN Reason: Nausea and Vomiting Pharmacy Consult (Consult Rx Vancomycin Dosing) 1 each MISCELLANE DAILY PRN PRN Reason: Consult order Polyethylene Glycol (Polyethylene Glycol 3350 17 Gm Powd.Pack) 17 gm PO DAILY PRN PRN Reason: constipation Pramipexole Dihydrochloride (Pramipexole Di-Hcl 0.25 Mg Tablet) 0.25 mg PO DAILY [facility] Last Admin: 06/07/23 07:43 Dose: Not Given Documented By: LAMAR Non-Admin Reason: NPO Senna (Sennosides 8.6 Mg Tablet) 8.6 mg PO BEDTIME [facility] Last Admin: 06/06/23 21:18 Dose: Not Given Documented By: SAMUEL Non-Admin Reason: NPO Topiramate (Topiramate 100 Mg Tablet) 100 mg PO BID [facility] Last Admin: 06/07/23 07:44 Dose: Not Given Documented By: LAMAR Non-Admin Reason: NPO Vortioxetine (Vortioxetine Hydrobromide 20 Mg Tablet) 20 mg PO DAILY [facility] Last Admin: 06/07/23 07:44 Dose: Not Given Documented By: LAMAR Non-Admin Reason: NPO Labs 06/07/23 05:13 06/07/23 05:13 Labs: Laboratory Results - last 24 hr 06/06/23 06/06/23 06/06/23 11:16 17:19 23:39 MCV MCH MCHC RDW Plt Count MPV Immature Gran % (Auto) Neut % (Auto) Lymph % (Auto) [place] % (Auto) Eos % (Auto) Baso % (Auto) Lymph # (Auto) [place] # (Auto) Eos # (Auto) Baso # (Auto) Abs Immat Gran (auto) Absolute Neuts (auto) Absolute Nucleated RBC Nucleated RBC % (auto) VBG pH VBG pCO2 VBG pO2 VBG HCO3 VBG O2 Saturation VBG Base Excess Anion Gap 18 Estim Creat Clear Calc 62.2 Estimated GFR 49 POC Glucose 107 112 Random Glucose 128 H Calcium 9.0 D Phosphorus Magnesium Total Bilirubin 1.8 H AST 24 ALT 25 Alkaline Phosphatase 123 H Total Protein 6.0 L Albumin 3.5 06/06/23 06/07/23 06/07/23 23:53 00:07 05:09 MCV MCH MCHC RDW Plt Count MPV Immature Gran % (Auto) Neut % (Auto) Lymph % (Auto) [place] % (Auto) Eos % (Auto) Baso % (Auto) Lymph # (Auto) [place] # (Auto) Eos # (Auto) Baso # (Auto) Abs Immat Gran (auto) Absolute Neuts (auto) Absolute Nucleated RBC Nucleated RBC % (auto) VBG pH 7.36 7.48 H VBG pCO2 39 26 VBG pO2 55 65 VBG HCO3 22 20 L VBG O2 Saturation 83.0 94.0 VBG Base Excess -2.5 -2.2 Anion Gap Estim Creat Clear Calc Estimated GFR POC Glucose 126 H Random Glucose Calcium Phosphorus Magnesium Total Bilirubin AST ALT Alkaline Phosphatase Total Protein Albumin 06/07/23 05:13 MCV 90.3 MCH 29.4 MCHC 32.6 RDW 14.7 Plt Count 63 L D MPV 14.0 H Immature Gran % (Auto) 2.2 H Neut % (Auto) 83.2 H Lymph % (Auto) 5.7 L [place] % (Auto) 8.2 Eos % (Auto) 0.1 Baso % (Auto) 0.6 Lymph # (Auto) 0.6 L [place] # (Auto) 0.9 Eos # (Auto) 0.0 Baso # (Auto) 0.1 Abs Immat Gran (auto) 0.23 H Absolute Neuts (auto) 8.8 H Absolute Nucleated RBC 0.000 Nucleated RBC % (auto) 0.0 VBG pH VBG pCO2 VBG pO2 VBG HCO3 VBG O2 Saturation VBG Base Excess Anion Gap 17 Estim Creat Clear Calc 72.3 Estimated GFR 58 POC Glucose Random Glucose 166 H Calcium 8.7 Phosphorus 2.5 L Magnesium 1.9 Total Bilirubin 1.5 H AST 19 ALT 22 Alkaline Phosphatase 102 Total Protein 5.4 L Albumin 3.0 L Microbiology Microbiology Results: Microbiology 06/03/23 04:15 Gram Stain - Final Abdominal Fluid Routine Culture - Final Anaerobic Culture - Preliminary Culture in progress. Procedures Date of Service Date of Service: 06/07/23 Progress Note: A&P Assessment and plan (1) Perforated ulcer: Status: Acute (2) Bowel perforation: Status: Acute (3) Septic shock: Status: Acute Plan Extubated, was doing fairly well on BiPap now tachycardic, tachypneic and O2 sat low 90s on oxymask. Remains febrile on IV zosyn, capsofungin. WBC trending up. Will order CT scan abd/pelvis given persistent fevers to eval for abscess. If she is able to tolerate being off bipap, can begin sips if CT scan ok, passes swallow eval. Time Spent With Patient Time: Total time managing care of this patient today ____ minutes. Quality Stroke Does the patient have a stroke diagnosis?: No VTE Prior VTE?: No VTE Risk Level:: Surgical - low VTE Device Contraindication: N/A - Device Ordered VTE Drug Contraindication: Treatment Not Indicated
--- NOTE | 2023-06-07 08:50 | PM.CCPN ---
Subjective Subjective Date of Service: 06/07/23 Critical Care Time (minutes): 90 Physical Exam Vital Signs: Vital Signs: Last Vital Signs Temp 100.9 F H 06/07/23 08:00 Pulse 112 H 06/07/23 08:00 Resp 40 H 06/07/23 08:00 BP 182/107 H 06/07/23 08:00 Pulse Ox 90 L 06/07/23 08:00 O2 Del Method Oxymask 06/07/23 08:00 O2 Flow Rate 10 06/07/23 08:00 FiO2 24 06/07/23 07:00 BMI result Body Mass Index 41.0 Const: General: healthy appearing, comfortable, no acute distress, well developed, alert, awake and Physically active Orientation/consciousness: patient oriented x3 HEENT: Head: Yes normal to inspection, Yes normocephalic and Yes atraumatic Eyes: General: appearance normal, both eyes and all related structures Neck: Neck: Yes normal visual inspection, Yes full ROM, Yes no meningeal signs and Yes supple Chest: Chest palpation & inspection: normal inspection of the chest Resp: Other: no appreciable rales, rhonchi, wheezing Cardio: Rate: regular rate Rhythm: regular rhythm GI: Other: appreciable midline incision, clean, dry, intact Inspection: No Abdominal wall edema and No distended Palpation (GI): Soft to palpation, not firm, nontender, no guarding and not rigid Skin: General skin exam: no rashes or lesions noted Neuro: General: patient oriented x3, tone normal, moves all extremities, no meningeal signs and no focal motor deficits Extrem: Other: 1+ pitting edema to bialteral knees General: Yes normal to inspection, Yes full ROM and Yes capillary refill normal Psych: Appearance: grossly normal Objective Data Labs 06/07/23 05:13 06/07/23 05:13 Labs: Laboratory Results - last 24 hr 06/06/23 06/06/23 06/06/23 11:16 17:19 23:39 WBC RBC Hgb Hct MCV MCH MCHC RDW Plt Count MPV Immature Gran % (Auto) Neut % (Auto) Lymph % (Auto) [place] % (Auto) Eos % (Auto) Baso % (Auto) Lymph # (Auto) [place] # (Auto) Eos # (Auto) Baso # (Auto) Abs Immat Gran (auto) Absolute Neuts (auto) Absolute Nucleated RBC Nucleated RBC % (auto) VBG pH VBG pCO2 VBG pO2 VBG HCO3 VBG O2 Saturation VBG Base Excess Sodium 148 H Potassium 3.3 Chloride 112 H Carbon Dioxide 21 L Anion Gap 18 BUN 28 H Creatinine 1.12 Estim Creat Clear Calc 62.2 Estimated GFR 49 POC Glucose 107 112 Random Glucose 128 H Calcium 9.0 D Phosphorus Magnesium Total Bilirubin 1.8 H AST 24 ALT 25 Alkaline Phosphatase 123 H Total Protein 6.0 L Albumin 3.5 06/06/23 06/07/23 06/07/23 23:53 00:07 05:09 WBC RBC Hgb Hct MCV MCH MCHC RDW Plt Count MPV Immature Gran % (Auto) Neut % (Auto) Lymph % (Auto) [place] % (Auto) Eos % (Auto) Baso % (Auto) Lymph # (Auto) [place] # (Auto) Eos # (Auto) Baso # (Auto) Abs Immat Gran (auto) Absolute Neuts (auto) Absolute Nucleated RBC Nucleated RBC % (auto) VBG pH 7.36 7.48 H VBG pCO2 39 26 VBG pO2 55 65 VBG HCO3 22 20 L VBG O2 Saturation 83.0 94.0 VBG Base Excess -2.5 -2.2 Sodium Potassium Chloride Carbon Dioxide Anion Gap BUN Creatinine Estim Creat Clear Calc Estimated GFR POC Glucose 126 H Random Glucose Calcium Phosphorus Magnesium Total Bilirubin AST ALT Alkaline Phosphatase Total Protein Albumin 06/07/23 05:13 WBC 10.6 RBC 3.09 L Hgb 9.1 L Hct 27.9 L MCV 90.3 MCH 29.4 MCHC 32.6 RDW 14.7 Plt Count 63 L D MPV 14.0 H Immature Gran % (Auto) 2.2 H Neut % (Auto) 83.2 H Lymph % (Auto) 5.7 L [place] % (Auto) 8.2 Eos % (Auto) 0.1 Baso % (Auto) 0.6 Lymph # (Auto) 0.6 L [place] # (Auto) 0.9 Eos # (Auto) 0.0 Baso # (Auto) 0.1 Abs Immat Gran (auto) 0.23 H Absolute Neuts (auto) 8.8 H Absolute Nucleated RBC 0.000 Nucleated RBC % (auto) 0.0 VBG pH VBG pCO2 VBG pO2 VBG HCO3 VBG O2 Saturation VBG Base Excess Sodium 149 H Potassium 3.1 L Chloride 114 H Carbon Dioxide 21 L Anion Gap 17 BUN 29 H Creatinine 0.97 Estim Creat Clear Calc 72.3 Estimated GFR 58 POC Glucose Random Glucose 166 H Calcium 8.7 Phosphorus 2.5 L Magnesium 1.9 Total Bilirubin 1.5 H AST 19 ALT 22 Alkaline Phosphatase 102 Total Protein 5.4 L Albumin 3.0 L Microbiology Microbiology Results: Microbiology 06/03/23 04:15 Abdominal Fluid Gram Stain - Final 06/03/23 04:15 Abdominal Fluid Routine Culture - Final 06/03/23 04:15 Abdominal Fluid Anaerobic Culture - Preliminary Culture in progress. 06/02/23 19:33 Blood - Venous Blood Culture - Preliminary No growth after 48 hours. 06/02/23 19:33 Blood - Venous Blood Culture - Preliminary No growth after 48 hours. 06/02/23 23:22 Urine Catheterized - [place] Catheter Urine Culture - Final No growth. Progress Note: A&P Assessment and plan (1) Acute hypoxic respiratory failure: Status: Acute (2) Perforated ulcer: Status: Acute (3) Spondylolisthesis, lumbar region: Status: Acute Plan Patient is a 62 Y F with metabolic syndrome, prior pulmonary embolism, prior gastric bypass, initially presented for L3-L4 fusion on 05/30; hospital course c/b perforated gastric ulcer, s/p exploratory laparotomy, c/b septic shock and multi-system organ failure N: no acute issues CV: septic shock, improved R: acute hypoxic respiratory failure, on/off BiPAP, wean BiPAP as tolerated GI: perforated gastric ulcer, empiric zosyn, caspofungin; NPO, TPN, okay for sips per surgery; PPI : acute renal insufficiency, improving H: prior pulmonary embolism; thrombocytopenia; to continue to avoid chemical DVT prophylaxis ID: bowel perforation, empiric zosyn, caspofungin MSK: s/p L3-L4 fusion E: no acute issues P: no acute issues Quality Stroke Does the patient have a stroke diagnosis?: No VTE Prior VTE?: No VTE Risk Level:: Surgical - low VTE Device Contraindication: N/A - Device Ordered VTE Drug Contraindication: Treatment Not Tolerated
[2023-06-07] MEDS: iohexoL 350 MG/ML 75 ML INFUS..BTL 85 ML IV (10:01)
[2023-06-07 10:19] LABS: Venous Blood Gas Refer to POC result
[2023-06-07 10:19] LABS: VBG Base Excess -2.8 mmol/L; VBG HCO3 17 mmol/L (22-26); VBG pCO2 17 mmHg; VBG pH 7.59 (7.32-7.43); VBG pO2 210 mmHg
--- NOTE | 2023-06-07 10:21 | MHC.CLN ---
F/U PT EXTUBATED ON BIPAP DAY 6 NPO DISCUSSED WITH MD AT ROUNDS POSSIBLE SPEECH EVAL TODAY TO DETERMINE APPROPRIATE DIET CONSISTENCY IF DIET TO ADVANCE RECOMMEND 1800DM ALONG WITH IN SERVICE EDUCATION TEACHER RECOMMENDATION IF PT TO CONTINUE NPO; CONSULT RD FOR PPN
[2023-06-07] MEDS: Furosemide 20 MG/2 ML VIAL IVPUSH ×2 (10:41→17:39)
[2023-06-07] MEDS: Caspofungin Acetate 50 MG in 0.9 % Sodium Chloride 250 ML 250 MG IV (11:49)
[2023-06-07 12:05] LABS: Glucose, Whole Blood 186 mg/dL (60-115)
[2023-06-07] MEDS: Insulin Lispro 100 UNIT/ML 3 ML VIAL SUBCUT ×2 (12:28→18:14)
--- NOTE | 2023-06-07 14:29 | MHC.CM.PN ---
Pt continues on BiPAP following surgical intervention for post op interbody fusion complications: no pressors given since 06/04: diet advanced to allow sips of water. Pt from home w/spouse - new referral for HVNA placed however, pt may require STR for continued medical support. CM to follow.
--- NOTE | 2023-06-07 15:19 | MHC.SLORD ---
Speech Language Pathology Order Status: Patient is s/p extubation, on BiPAP. SWIMMING POOL INSTALLER AND SERVICER attempted to see patient for bedside swallow exam this morning and again later this afternoon. Per RN, patient is not appropriate for PO trials, eval to be deferred for tomorrow a.m.
[2023-06-07] MEDS: Acetaminophen 1,000 MG/100 ML PIGGYBACK 400 MG IV (18:00)
[2023-06-07] MEDS: Metoprolol Tartrate 5 MG/5 ML VIAL IVPUSH (18:01)
[2023-06-07 18:14] LABS: Glucose, Whole Blood 182 mg/dL (60-115)
[2023-06-07 19:59] LABS: Troponin-I High Sensitivity 543.6 ng/L (<3.5-17.0)
[2023-06-08] VITALS (32 sets, daily range): BP systolic 114–169; BP diastolic 58–101; PULSE 70–88; RESP 18–34; TEMP 36.2–38; O2SAT 93–100; BMI 40.3
[2023-06-08 00:16] LABS: Glucose, Whole Blood 179 mg/dL (60-115)
[2023-06-08] MEDS: Piperacillin Sodium/Tazobactam 3.375 GM in 0.9 % Sodium Chloride 50 ML IV ×4 (00:22→18:10)
[2023-06-08] MEDS: Insulin Lispro 100 UNIT/ML 3 ML VIAL SUBCUT ×5 (00:22→21:19)
--- NOTE | 2023-06-08 01:00 | ECG_ITS ---
Test Reason : elevated trop Blood Pressure : / mmHG Vent. Rate : 085 BPM Atrial Rate : 085 BPM P-R Int : 136 ms QRS Dur : 090 ms QT Int : 436 ms P-R-T Axes : 007 -01 -09 degrees QTc Int : 518 ms Normal sinus rhythm Cannot rule out Anterior infarct (cited on or before 02-JUN-2023) Abnormal ECG When compared with ECG of 02-JUN-2023 15:56, Nonspecific T wave abnormality, worse in Anterolateral leads QT has lengthened Referred By: Margarita Brown Electronically Signed By:GEOFF ALVAREZ
[2023-06-08 01:20] LABS: VBG Base Excess 0.7 mmol/L; VBG HCO3 23 mmol/L (22-26); VBG pCO2 32 mmHg; VBG pH 7.47 (7.32-7.43); VBG pO2 66 mmHg
[2023-06-08 01:22] LABS: Venous Blood Gas Refer to POC result
[2023-06-08 01:36] LABS: Troponin-I High Sensitivity 521.6 ng/L (<3.5-17.0)
[2023-06-08 05:30] LABS: VBG Base Excess -0.1 mmol/L; VBG HCO3 22 mmol/L (22-26); VBG pCO2 30 mmHg; VBG pH 7.47 (7.32-7.43); VBG pO2 33 mmHg
[2023-06-08 06:09] LABS: MANUAL DIFF FLAG NO
[2023-06-08 06:30] LABS: Basophils Absolute Auto 0.1 X10*3/uL (0.0-0.2); Basophils Percent Auto 0.4 % (0-2); Eosinophils Percent Auto 0.1 % (0-4); Hematocrit 29.8 % (37.0-47.0); Hemoglobin 10.3 g/dl (12.0-16.0); Imm Gran Abs Auto 0.39 X10*3/uL (0.00-0.03); Imm Gran Pct Auto 2.4 % (0.0-0.4); Lymphocytes Absolute Auto 0.8 X10*3/uL (1.2-4.9); Lymphocytes Percent Auto 5.1 % (20-40); Mean Corpuscular HGB Conc 34.6 g/dl (31.0-35.0); Mean Corpuscular Hemoglobin 30.5 pg (27.0-33.0); Mean Corpuscular Volume 88.2 fL (80.0-98.0); Mean Platelet Volume 13.7 fL (9.4-12.3); Monocytes Absolute Auto 1.3 X10*3/uL (0.1-1.2); Monocytes Percent Auto 7.8 % (2-11); NRBC Pct Auto 0.1 /100WBC (0.0-0.2); Neutrophils Absolute Auto 13.6 x10*3/uL (2.0-8.3); Neutrophils Percent Auto 84.2 % (45-73); Platelet Count 105 X10*3/uL (160-400); Red Blood Count 3.38 X10*6/uL (4.20-5.50); Red Cell Distribution Width 14.8 % (11.0-16.0); White Blood Count 16.1 X10*3/uL (4.8-10.8)
[2023-06-08 06:32] LABS: B Type Natriuretic Peptide 3728 pg/mL (<100)
[2023-06-08 06:34] LABS: Albumin Level 3.2 g/dL (3.5-5.0); Anion Gap 20 (12-20); Blood Urea Nitrogen 29 mg/dL (9-16); Carbon Dioxide 20 mmol/L (22-29); Chloride 114 mmol/L (96-108); Creatinine Clr Calc Pharmacy 80.6; Estimated Glomerular Filt Rate > 60; Glucose Random 216 mg/dL (60-115); Magnesium 1.8 mg/dL (1.6-2.6); Phosphorus 3.1 mg/dL (2.7-4.5); Potassium 3.1 mmol/L (3.3-5.1); Sodium 151 mmol/L (135-145)
[2023-06-08 06:39] LABS: Glucose, Whole Blood 195 mg/dL (60-115)
[2023-06-08] MEDS: Pantoprazole Sodium 40 MG/10 ML VIAL IVPUSH (06:45)
--- NOTE | 2023-06-08 07:38 | PM.PNGS ---
Subjective Subjective Date of Service: 06/08/23 <Osiris Koroma PA-C - Last Filed: 06/08/23 08:18> 06/08/23 <Danny Hernandez MD - Last Filed: 06/08/23 07:49> Interval history: On bipap, asking for water as she is thirsty. Denies abd pain. Passing flatus. <Osiris Koroma PA-C - Last Filed: 06/08/23 08:18> Physical Exam Vital Signs: Vital Signs: Last Vital Signs Temp 99.3 F 06/08/23 07:00 Pulse 78 06/08/23 07:00 Resp 26 H 06/08/23 07:00 BP 154/80 H 06/08/23 07:00 Pulse Ox 93 06/08/23 07:00 O2 Del Method BiPAP 06/08/23 07:00 O2 Flow Rate 55 06/07/23 17:00 FiO2 60 06/08/23 07:00 BMI result Body Mass Index 40.3 <Osiris Koroma PA-C - Last Filed: 06/08/23 08:18> Const: General: comfortable, no acute distress and alert <Osiris Koroma PA-C - Last Filed: 06/08/23 08:18> Resp: Effort & Inspection: normal respiratory effort <Osiris Koroma PA-C - Last Filed: 06/08/23 08:18> GI: Inspection: Yes distended (softly) and Yes incision (clean) <Osiris Koroma PA-C - Last Filed: 06/08/23 08:18> Palpation (GI): Soft to palpation, nontender and no guarding <Osiris Koroma PA-C - Last Filed: 06/08/23 08:18> Extrem: Other: anasarca <JAIME Griffin Last Filed: 06/08/23 08:18> Objective Data Active Medications Albuterol Sulfate (Albuterol Sulfate 90 Mcg 8 Gm Inhaler) 2 puff INHALE Q6H PRN PRN Reason: Shortness Of Breath Albuterol/Ipratropium (Albuterol/Iprat 2.5/0.5mg 3 Ml Ampul.Neb) 3 ml INHALE RQ4H WHILE AWAKE [facility] Last Admin: 06/07/23 18:52 Dose: 3 ml Documented By: ISMAEL Chlorhexidine Gluconate (Chlorhexidine Gluc Oral Rinse 15 Ml Mouthwash) 15 ml BUCCAL TID [facility] Last Admin: 06/08/23 07:06 Dose: Not Given Documented By: LAMAR Non-Admin Reason: NPO Clonazepam (Clonazepam 1 Mg Tablet) 1 mg PO TID [facility] Last Admin: 06/02/23 14:06 Dose: Not Given Documented By: RAVEN Non-Admin Reason: pt lethargic Fentanyl (Fentanyl Citrate/Pf 100 Mcg/2 Ml Vial) 25 mcg IVPUSH Q2H PRN; Protocol PRN Reason: pain and distress Last Admin: 06/07/23 01:26 Dose: 25 mcg Documented By: DELFIN Fluticasone/Vilanterol (Fluticasone/Vilanterol 200/25 Blst.W.Dev) 1 puff INHALE RDAILY [facility] Last Admin: 06/02/23 08:43 Dose: 1 puff Documented By: DONNA Furosemide (Furosemide 20 Mg/2 Ml Vial) 20 mg IVPUSH BID@0900,1800 [facility]; Protocol Last Admin: 06/07/23 17:39 Dose: 20 mg Documented By: LAMAR Gabapentin (Gabapentin 400 Mg Capsule) 800 mg PO BID [facility] Last Admin: 06/02/23 11:03 Dose: 800 mg Documented By: RAVEN Glucose (Glucose Gel 15 Gm Gel..Gram.) 15 gm PO Q15M PRN; Protocol PRN Reason: per Hypoglycemia Standing Ord. Dextrose (D10) 250 mls @ 750 mls/hr IV Q15M PRN; Protocol PRN Reason: per Hypoglycemia Standing Ord. Piperacillin Sod/Tazobactam (Sod 3.375 gm/ Sodium Chloride) 50 mls @ 100 mls/hr IV Q6H [facility] Last Infusion: 06/08/23 07:18 Dose: Infused Documented By: LAMAR Caspofungin 50 mg/ Sodium (Chloride) 250 mls @ 250 mls/hr IV Q24H [facility] Last Infusion: 06/07/23 13:27 Dose: Infused Documented By: LAMAR Acetaminophen (Ofirmev) 1,000 mg in 100 mls @ 400 mls/hr IV Q6H PRN PRN Reason: Fever >100.4 Last Infusion: 06/07/23 19:00 Dose: Infused Documented By: LAMAR Insulin Human Lispro (Insulin Lispro 100 Unit/Ml 3 Ml Vial) 0 unit SUBCUT Q6H [facility]; Protocol Last Admin: 06/08/23 06:45 Dose: 2 unit Documented By: YAMIL Lactulose (Lactulose 20 Gm/30 Ml Solution) 10 gm PO DAILY [facility] Last Admin: 06/02/23 11:04 Dose: 10 gm Documented By: RAVEN Naloxone HCl (Naloxone Hcl 0.4 Mg/Ml Vial) 0.2 mg IVPUSH Q2M PRN PRN Reason: Excessive sedation or RR < 8 Ondansetron HCl (Ondansetron Hcl 4 Mg/2 Ml Vial) 4 mg IVPUSH Q6H PRN PRN Reason: Nausea and Vomiting Pantoprazole Sodium (Pantoprazole Sodium 40 Mg/10 Ml Vial) 40 mg IVPUSH DAILY@0630 [facility] Last Admin: 06/08/23 06:45 Dose: 40 mg Documented By: YAMIL Polyethylene Glycol (Polyethylene Glycol 3350 17 Gm Powd.Pack) 17 gm PO DAILY PRN PRN Reason: constipation Pramipexole Dihydrochloride (Pramipexole Di-Hcl 0.25 Mg Tablet) 0.25 mg PO DAILY [facility] Last Admin: 06/07/23 07:43 Dose: Not Given Documented By: LAMAR Non-Admin Reason: NPO Senna (Sennosides 8.6 Mg Tablet) 8.6 mg PO BEDTIME [facility] Last Admin: 06/06/23 21:18 Dose: Not Given Documented By: SAMUEL Non-Admin Reason: NPO Topiramate (Topiramate 100 Mg Tablet) 100 mg PO BID [facility] Last Admin: 06/07/23 07:44 Dose: Not Given Documented By: LAMAR Non-Admin Reason: NPO Vortioxetine (Vortioxetine Hydrobromide 20 Mg Tablet) 20 mg PO DAILY [facility] Last Admin: 06/07/23 07:44 Dose: Not Given Documented By: LAMAR Non-Admin Reason: NPO Kaitlin Koroma PA-C - Last Filed: 06/08/23 08:18> Labs CBC & Chem 7: 06/08/23 05:17 06/08/23 05:17 <Osiris Koroma PA-C - Last Filed: 06/08/23 08:18> Labs: Laboratory Results - last 24 hr 06/07/23 06/07/23 06/07/23 10:05 12:02 18:06 MCV MCH MCHC RDW Plt Count MPV Immature Gran % (Auto) Neut % (Auto) Lymph % (Auto) [place] % (Auto) Eos % (Auto) Baso % (Auto) Lymph # (Auto) [place] # (Auto) Eos # (Auto) Baso # (Auto) Abs Immat Gran (auto) Absolute Neuts (auto) Absolute Nucleated RBC Nucleated RBC % (auto) VBG pH 7.59 H VBG pCO2 17 VBG pO2 210 VBG HCO3 17 L VBG O2 Saturation 99.0 VBG Base Excess -2.8 Anion Gap Estim Creat Clear Calc Estimated GFR POC Glucose 186 H 182 H Random Glucose Calcium Phosphorus Magnesium Troponin I High Sens B-Natriuretic Peptide Albumin 06/07/23 06/08/23 06/08/23 19:14 00:12 01:07 MCV MCH MCHC RDW Plt Count MPV Immature Gran % (Auto) Neut % (Auto) Lymph % (Auto) [place] % (Auto) Eos % (Auto) Baso % (Auto) Lymph # (Auto) [place] # (Auto) Eos # (Auto) Baso # (Auto) Abs Immat Gran (auto) Absolute Neuts (auto) Absolute Nucleated RBC Nucleated RBC % (auto) VBG pH VBG pCO2 VBG pO2 VBG HCO3 VBG O2 Saturation VBG Base Excess Anion Gap Estim Creat Clear Calc Estimated GFR POC Glucose 179 H Random Glucose Calcium Phosphorus Magnesium Troponin I High Sens 543.6 H* D 521.6 H* B-Natriuretic Peptide Albumin 06/08/23 06/08/23 06/08/23 01:08 05:17 05:22 MCV 88.2 MCH 30.5 MCHC 34.6 RDW 14.8 Plt Count 105 L D MPV 13.7 H Immature Gran % (Auto) 2.4 H Neut % (Auto) 84.2 H Lymph % (Auto) 5.1 L [place] % (Auto) 7.8 Eos % (Auto) 0.1 Baso % (Auto) 0.4 Lymph # (Auto) 0.8 L [place] # (Auto) 1.3 H Eos # (Auto) 0.0 Baso # (Auto) 0.1 Abs Immat Gran (auto) 0.39 H Absolute Neuts (auto) 13.6 H Absolute Nucleated RBC 0.020 H Nucleated RBC % (auto) 0.1 VBG pH 7.47 H 7.47 H VBG pCO2 32 30 VBG pO2 66 33 VBG HCO3 23 22 VBG O2 Saturation 94.0 52.0 VBG Base Excess 0.7 -0.1 Anion Gap 20 Estim Creat Clear Calc 80.6 Estimated GFR > 60 POC Glucose Random Glucose 216 H Calcium 9.0 Phosphorus 3.1 Magnesium 1.8 Troponin I High Sens B-Natriuretic Peptide 3728 H Albumin 3.2 L 06/08/23 06:36 MCV MCH MCHC RDW Plt Count MPV Immature Gran % (Auto) Neut % (Auto) Lymph % (Auto) [place] % (Auto) Eos % (Auto) Baso % (Auto) Lymph # (Auto) [place] # (Auto) Eos # (Auto) Baso # (Auto) Abs Immat Gran (auto) Absolute Neuts (auto) Absolute Nucleated RBC Nucleated RBC % (auto) VBG pH VBG pCO2 VBG pO2 VBG HCO3 VBG O2 Saturation VBG Base Excess Anion Gap Estim Creat Clear Calc Estimated GFR POC Glucose 195 H Random Glucose Calcium Phosphorus Magnesium Troponin I High Sens B-Natriuretic Peptide Albumin <Osiris Koroma PA-C - Last Filed: 06/08/23 08:18> Microbiology Microbiology Results: Microbiology 06/02/23 19:33 Blood Culture - Final Blood - Venous No growth after 5 days. 06/02/23 19:33 Blood Culture - Final Blood - Venous No growth after 5 days. 06/03/23 04:15 Gram Stain - Final Abdominal Fluid Routine Culture - Final Anaerobic Culture - Final Veillonella species <Osiris Koroma PA-C - Last Filed: 06/08/23 08:18> Procedures Date of Service Date of Service: 06/08/23 <Osiris Koroma PA-C - Last Filed: 06/08/23 08:18> 06/08/23 <Danny Hernandez MD - Last Filed: 06/08/23 07:49> Progress Note: A&P Assessment and plan (1) Bowel perforation: Status: Acute <Osiris Koroma PA-C - Last Filed: 06/08/23 08:18> (2) Perforated ulcer: Status: Acute <Osiris Koroma PA-C - Last Filed: 06/08/23 08:18> (3) Free intraperitoneal air: Status: Acute <Osiris Koroma PA-C - Last Filed: 06/08/23 08:18> Assessment and Plan: Remains extubated on BiPAP. CT scan yesterday showed diffuse anasarca however no fluid collections suggestive of abscess but WBC continues to trend up. Incision clean and abd very benign. ?CTA for PE today. Cont IV zosyn, capsofungin. Can dc NGT at this point as output is minimal. If she is able to tolerate being off bipap, can begin sips if passes swallow eval. <Osiris Koroma PA-C - Last Filed: 06/08/23 08:18> Time Spent With Patient Time: Total time managing care of this patient today ____ minutes. <Osiris Koroma PA-C - Last Filed: 06/08/23 08:18> Quality Stroke Does the patient have a stroke diagnosis?: No <Osiris Koroma PA-C - Last Filed: 06/08/23 08:18> VTE Prior VTE?: No <Osiris Koorma PA-C - Last Filed: 06/08/23 08:18> VTE Risk Level:: Surgical - low <Osiris Koroma PA-C - Last Filed: 06/08/23 08:18> VTE Device Contraindication: N/A - Device Ordered <Osiris Koroma PA-C - Last Filed: 06/08/23 08:18> VTE Drug Contraindication: Treatment Not Tolerated <Osiris Koroma PA-C - Last Filed: 06/08/23 08:18>
[2023-06-08] MEDS: Albuterol/Iprat 2.5/0.5MG 3 ML AMPUL.NEB INHALE ×4 (07:49→19:51)
[2023-06-08] MEDS: Furosemide 20 MG/2 ML VIAL IVPUSH (08:04)
--- NOTE | 2023-06-08 08:52 | PM.CCPN ---
Subjective Subjective Date of Service: 06/08/23 Interval History: no significant overnight events Critical Care Time (minutes): 90 Physical Exam Vital Signs: Vital Signs: Last Vital Signs Temp 99.3 F 06/08/23 08:00 Pulse 75 06/08/23 08:00 Resp 26 H 06/08/23 08:00 BP 157/73 H 06/08/23 08:00 Pulse Ox 94 06/08/23 08:00 O2 Del Method BiPAP 06/08/23 08:00 O2 Flow Rate 55 06/07/23 17:00 FiO2 30 06/08/23 08:00 BMI result Body Mass Index 40.3 Const: General: cooperative, healthy appearing, comfortable, no acute distress, well developed, alert, awake and Physically active Orientation/consciousness: patient oriented x3 HEENT: Head: Yes normal to inspection, Yes normocephalic and Yes atraumatic Eyes: General: appearance normal, both eyes and all related structures Neck: Neck: Yes normal visual inspection, Yes full ROM, Yes no meningeal signs and Yes supple Chest: Chest palpation & inspection: normal inspection of the chest Resp: Other: diminished breath sounds throughout; no overt rales, rhonchi, wheezing Effort & Inspection: able to speak in complete sentences Cardio: Rate: regular rate Rhythm: regular rhythm GI: Inspection: Yes normal to inspection, No Abdominal wall edema and No distended Palpation (GI): Soft to palpation, not firm, nontender, no guarding and not rigid Skin: General skin exam: no rashes or lesions noted Neuro: General: patient oriented x3, tone normal, moves all extremities, no meningeal signs and no focal motor deficits Extrem: Other: appreciable anasarca General: Yes normal to inspection, Yes full ROM and Yes capillary refill normal Psych: Appearance: grossly normal Objective Data Labs 06/08/23 05:17 06/08/23 05:17 Labs: Laboratory Results - last 24 hr 06/07/23 06/07/23 06/07/23 10:05 12:02 18:06 WBC RBC Hgb Hct MCV MCH MCHC RDW Plt Count MPV Immature Gran % (Auto) Neut % (Auto) Lymph % (Auto) [place] % (Auto) Eos % (Auto) Baso % (Auto) Lymph # (Auto) [place] # (Auto) Eos # (Auto) Baso # (Auto) Abs Immat Gran (auto) Absolute Neuts (auto) Absolute Nucleated RBC Nucleated RBC % (auto) VBG pH 7.59 H VBG pCO2 17 VBG pO2 210 VBG HCO3 17 L VBG O2 Saturation 99.0 VBG Base Excess -2.8 Sodium Potassium Chloride Carbon Dioxide Anion Gap BUN Creatinine Estim Creat Clear Calc Estimated GFR POC Glucose 186 H 182 H Random Glucose Calcium Phosphorus Magnesium Troponin I High Sens B-Natriuretic Peptide Albumin 06/07/23 06/08/23 06/08/23 19:14 00:12 01:07 WBC RBC Hgb Hct MCV MCH MCHC RDW Plt Count MPV Immature Gran % (Auto) Neut % (Auto) Lymph % (Auto) [place] % (Auto) Eos % (Auto) Baso % (Auto) Lymph # (Auto) [place] # (Auto) Eos # (Auto) Baso # (Auto) Abs Immat Gran (auto) Absolute Neuts (auto) Absolute Nucleated RBC Nucleated RBC % (auto) VBG pH VBG pCO2 VBG pO2 VBG HCO3 VBG O2 Saturation VBG Base Excess Sodium Potassium Chloride Carbon Dioxide Anion Gap BUN Creatinine Estim Creat Clear Calc Estimated GFR POC Glucose 179 H Random Glucose Calcium Phosphorus Magnesium Troponin I High Sens 543.6 H* D 521.6 H* B-Natriuretic Peptide Albumin 06/08/23 06/08/23 06/08/23 01:08 05:17 05:22 WBC 16.1 H RBC 3.38 L Hgb 10.3 L Hct 29.8 L MCV 88.2 MCH 30.5 MCHC 34.6 RDW 14.8 Plt Count 105 L D MPV 13.7 H Immature Gran % (Auto) 2.4 H Neut % (Auto) 84.2 H Lymph % (Auto) 5.1 L [place] % (Auto) 7.8 Eos % (Auto) 0.1 Baso % (Auto) 0.4 Lymph # (Auto) 0.8 L [place] # (Auto) 1.3 H Eos # (Auto) 0.0 Baso # (Auto) 0.1 Abs Immat Gran (auto) 0.39 H Absolute Neuts (auto) 13.6 H Absolute Nucleated RBC 0.020 H Nucleated RBC % (auto) 0.1 VBG pH 7.47 H 7.47 H VBG pCO2 32 30 VBG pO2 66 33 VBG HCO3 23 22 VBG O2 Saturation 94.0 52.0 VBG Base Excess 0.7 -0.1 Sodium 151 H Potassium 3.1 L Chloride 114 H Carbon Dioxide 20 L Anion Gap 20 BUN 29 H Creatinine 0.87 Estim Creat Clear Calc 80.6 Estimated GFR > 60 POC Glucose Random Glucose 216 H Calcium 9.0 Phosphorus 3.1 Magnesium 1.8 Troponin I High Sens B-Natriuretic Peptide 3728 H Albumin 3.2 L 06/08/23 06:36 WBC RBC Hgb Hct MCV MCH MCHC RDW Plt Count MPV Immature Gran % (Auto) Neut % (Auto) Lymph % (Auto) [place] % (Auto) Eos % (Auto) Baso % (Auto) Lymph # (Auto) [place] # (Auto) Eos # (Auto) Baso # (Auto) Abs Immat Gran (auto) Absolute Neuts (auto) Absolute Nucleated RBC Nucleated RBC % (auto) VBG pH VBG pCO2 VBG pO2 VBG HCO3 VBG O2 Saturation VBG Base Excess Sodium Potassium Chloride Carbon Dioxide Anion Gap BUN Creatinine Estim Creat Clear Calc Estimated GFR POC Glucose 195 H Random Glucose Calcium Phosphorus Magnesium Troponin I High Sens B-Natriuretic Peptide Albumin Microbiology Microbiology Results: Microbiology 06/02/23 19:33 Blood - Venous Blood Culture - Final No growth after 5 days. 06/02/23 19:33 Blood - Venous Blood Culture - Final No growth after 5 days. 06/03/23 04:15 Abdominal Fluid Gram Stain - Final 06/03/23 04:15 Abdominal Fluid Routine Culture - Final 06/03/23 04:15 Abdominal Fluid Anaerobic Culture - Final Veillonella species 06/02/23 23:22 Urine Catheterized - [place] Catheter Urine Culture - Final No growth. Progress Note: A&P Assessment and plan (1) Acute hypoxic respiratory failure: Status: Acute (2) Perforated ulcer: Status: Acute Plan Patient is a 62 Y F with metabolic syndrome, prior pulmonary embolism, prior gastric bypass, initially presented for L3-L4 fusion on 05/30; hospital course c/b perforated gastric ulcer, s/p exploratory laparotomy, c/b septic shock and multi-system organ failure N: no acute issues CV: septic shock, improved R: acute hypoxic respiratory failure, on/off BiPAP, wean BiPAP as tolerated GI: perforated gastric ulcer, empiric zosyn, caspofungin; NPO, TPN, okay for sips per surgery; PPI : acute renal insufficiency, improving; volume overload, to continue furosemide 20 mg BID H: prior pulmonary embolism; thrombocytopenia; to continue to avoid chemical DVT prophylaxis ID: bowel perforation, empiric zosyn, caspofungin MSK: s/p L3-L4 fusion; OOB as tolerated E: no acute issues P: no acute issues Quality Stroke Does the patient have a stroke diagnosis?: No VTE Prior VTE?: Yes VTE Risk Level:: Surgical - low VTE Device Contraindication: N/A - Device Ordered VTE Drug Contraindication: Treatment Not Tolerated
[2023-06-08] MEDS: iohexoL 350 MG/ML 100 ML INFUS..BTL IV (09:40)
[2023-06-08] MEDS: Potassium Chloride/H20 40 MEQ/100 ML PIGGYBACK 100 MEQ IV (10:02)
[2023-06-08] MEDS: Caspofungin Acetate 50 MG in 0.9 % Sodium Chloride 250 ML 250 MG IV (10:06)
[2023-06-08 11:54] LABS: Glucose, Whole Blood 204 mg/dL (60-115)
--- NOTE | 2023-06-08 14:23 | HO.WOUND ---
Wound Consult: Initial 62yr old F? admitted to [facility] on 05/31/23 08:49 - See progress notes and H&P for detailed history.? Wound consult placed for Bridge of nose by Respiratory Therapist.? Patient agreeable to assessment and photo documentation.? Patient currently on high flow Nasal Cannula - no pressure on bridge of nose at this time. Mepilex lite in place - peel back and skin assessed slight pink noted - intact and remains blanchable throughout. No pressure injury noted at this time. Should pressure need to be reapplied to bridge of nose continue with Mepilex Lite foam dressing to aid in off loading pressure and protection from friction. Recommendations: 1. Bridge of nose - Should respiratory device be used that applys pressure to bridge of nose be sure to apply mepilex lite foam dressing, peel back and assess Q shift and change every 3 days and PRN. Re-consult wound care Nurse for wound deterioration or wound changes.
--- NOTE | 2023-06-08 14:38 | P.PNNP_ITS ---
Subjective Subjective Date of Service: 06/08/23 Interval history: Events noted. More awake Nonoliguric Physical Exam 2 Vital Signs: Vital Signs: Last Vital Signs Temp 97.7 F 06/08/23 11:00 Pulse 75 06/08/23 14:00 Resp 22 H 06/08/23 14:00 BP 124/70 06/08/23 14:00 Pulse Ox 98 06/08/23 14:00 O2 Del Method High Flow Nasal C annula 06/08/23 14:00 O2 Flow Rate 35 06/08/23 14:00 FiO2 30 06/08/23 14:00 BMI result Body Mass Index 40.3 Awake. Comfortable. Neck is supple. Mucosa moist. Lungs bilateral scattered rhonchi. Heart S1-S2 heard no gallop. Abdomen soft. Extremities with edema. No involuntary movements. No myoclonus. Objective Data Labs 06/08/23 05:17 06/08/23 05:17 Labs: Laboratory Results - last 24 hr 06/07/23 06/07/23 06/08/23 18:06 19:14 00:12 WBC RBC Hgb Hct MCV MCH MCHC RDW Plt Count MPV Immature Gran % (Auto) Neut % (Auto) Lymph % (Auto) [place] % (Auto) Eos % (Auto) Baso % (Auto) Lymph # (Auto) [place] # (Auto) Eos # (Auto) Baso # (Auto) Abs Immat Gran (auto) Absolute Neuts (auto) Absolute Nucleated RBC Nucleated RBC % (auto) VBG pH VBG pCO2 VBG pO2 VBG HCO3 VBG O2 Saturation VBG Base Excess Sodium Potassium Chloride Carbon Dioxide Anion Gap BUN Creatinine Estim Creat Clear Calc Estimated GFR POC Glucose 182 H 179 H Random Glucose Calcium Phosphorus Magnesium Troponin I High Sens 543.6 H* D B-Natriuretic Peptide Albumin 06/08/23 06/08/23 06/08/23 01:07 01:08 05:17 WBC 16.1 H RBC 3.38 L Hgb 10.3 L Hct 29.8 L MCV 88.2 MCH 30.5 MCHC 34.6 RDW 14.8 Plt Count 105 L D MPV 13.7 H Immature Gran % (Auto) 2.4 H Neut % (Auto) 84.2 H Lymph % (Auto) 5.1 L [place] % (Auto) 7.8 Eos % (Auto) 0.1 Baso % (Auto) 0.4 Lymph # (Auto) 0.8 L [place] # (Auto) 1.3 H Eos # (Auto) 0.0 Baso # (Auto) 0.1 Abs Immat Gran (auto) 0.39 H Absolute Neuts (auto) 13.6 H Absolute Nucleated RBC 0.020 H Nucleated RBC % (auto) 0.1 VBG pH 7.47 H VBG pCO2 32 VBG pO2 66 VBG HCO3 23 VBG O2 Saturation 94.0 VBG Base Excess 0.7 Sodium 151 H Potassium 3.1 L Chloride 114 H Carbon Dioxide 20 L Anion Gap 20 BUN 29 H Creatinine 0.87 Estim Creat Clear Calc 80.6 Estimated GFR > 60 POC Glucose Random Glucose 216 H Calcium 9.0 Phosphorus 3.1 Magnesium 1.8 Troponin I High Sens 521.6 H* B-Natriuretic Peptide 3728 H Albumin 3.2 L 06/08/23 06/08/23 06/08/23 05:22 06:36 11:36 WBC RBC Hgb Hct MCV MCH MCHC RDW Plt Count MPV Immature Gran % (Auto) Neut % (Auto) Lymph % (Auto) [place] % (Auto) Eos % (Auto) Baso % (Auto) Lymph # (Auto) [place] # (Auto) Eos # (Auto) Baso # (Auto) Abs Immat Gran (auto) Absolute Neuts (auto) Absolute Nucleated RBC Nucleated RBC % (auto) VBG pH 7.47 H VBG pCO2 30 VBG pO2 33 VBG HCO3 22 VBG O2 Saturation 52.0 VBG Base Excess -0.1 Sodium Potassium Chloride Carbon Dioxide Anion Gap BUN Creatinine Estim Creat Clear Calc Estimated GFR POC Glucose 195 H 204 H Random Glucose Calcium Phosphorus Magnesium Troponin I High Sens B-Natriuretic Peptide Albumin Microbiology Microbiology Results: Microbiology 06/02/23 19:33 Blood - Venous Blood Culture - Final No growth after 5 days. 06/02/23 19:33 Blood - Venous Blood Culture - Final No growth after 5 days. 06/03/23 04:15 Abdominal Fluid Gram Stain - Final 06/03/23 04:15 Abdominal Fluid Routine Culture - Final 06/03/23 04:15 Abdominal Fluid Anaerobic Culture - Final Veillonella species 06/02/23 23:22 Urine Catheterized - [place] Catheter Urine Culture - Final No growth. Procedures Date of Service Date of Service: 06/08/23 Assessment & Plan Assessment and plan (1) Acute kidney injury: Status: Acute Plan 62 yr old woman with JOSE MANUEL JOSE MANUEL most likely from ischemic ATN No evidence of obstructive uropathy AGN/AIN seem unlikely Creatinine is back to baseline Mild hypernatremia Can switch loop diuretic to a thiazide like Diuril and keep O > I Time Spent With Patient Time: Total time managing care of this patient today ____ minutes. Progress Note: Quality Stroke Does the patient have a stroke diagnosis?: No
--- NOTE | 2023-06-08 16:15 | HO.PICC ---
[facility] Diagnosis: PERFORTATED ULCER/ACUTE RESP FAILURE Indication: ANTIBX AND QUESTION OF TPN Pertinent Labs: REVIEWED Technique: Following informed consent including risks, benefits and alternatives and using sterile technique including cap and mask, sterile gown, glove and drape, the LEFT arm was prepped and draped in the usual sterile fashion of full barrier technique with CHG. Following completion of [place] Protocol the skin and soft tissues were anesthetized with 1% Lidocaine plain. Using ultrasound guidance, LEFT BRACHIAL vein access was obtained. Over an 0.018 wire through peel-away sheath, a 5FR DOUBLE PASV POWERPICC line was positioned. Catheter length is 39CM internal length, 0CM external length, for a total trimmed length of 39CM. The procedure was performed in RM 255. Tip verification was performed by Olivia Ely with Sherlock 3CG. Tip located in SVC. Ultrasound was used to document vein patency and for needle entry. A formal ultrasound picture and cardiac rhythm strip was recorded. Vascular Watch And Clock Repair Clerk has released the line for use and it is currently dressed with a StatLock, Tegaderm, and CHG disc. Verification has been performed for blood return and line patency. Arm Circumference: 37.5CM Equipment: POWERPICC SOLO CATHETER WITH SHERLOCK 3CG Catheter Type: 5FR DOUBLE PASV POWERPICC line Lot #: [id number]
[2023-06-08 17:47] LABS: Glucose, Whole Blood 226 mg/dL (60-115)
[2023-06-08] MEDS: Heparin Sodium,Porcine Flush 50 UNITS, 0.9 % Sodium Chloride Flush 5 ML IVFLUSH ×2 (18:09→21:26)
[2023-06-08 21:05] LABS: Glucose, Whole Blood 161 mg/dL (60-115)
[2023-06-08] MEDS: fentaNYL citrate/PF 100 MCG/2 ML VIAL 25 MCG IVPUSH (21:18)
[2023-06-09] VITALS (31 sets, daily range): BP systolic 116–152; BP diastolic 60–75; PULSE 65–96; RESP 15–30; TEMP 36.2–36.9; O2SAT 94–100; BMI 39.0
[2023-06-09] MEDS: Piperacillin Sodium/Tazobactam 3.375 GM in 0.9 % Sodium Chloride 50 ML IV ×5 (00:02→23:34)
[2023-06-09 05:59] LABS: VBG Base Excess 3.2 mmol/L; VBG HCO3 24 mmol/L (22-26); VBG pCO2 28 mmHg; VBG pH 7.55 (7.32-7.43); VBG pO2 48 mmHg
[2023-06-09 06:33] LABS: Monocytes Percent Auto 4.1 % (2-11); Red Cell Distribution Width 14.6 % (11.0-16.0)
[2023-06-09 06:35] LABS: Basophils Absolute Auto 0.1 X10*3/uL (0.0-0.2); Basophils Percent Auto 0.4 % (0-2); Eosinophils Absolute Auto 0.1 X10*3/uL (0.0-0.4); Eosinophils Percent Auto 0.6 % (0-4); Hematocrit 30.2 % (37.0-47.0); Hemoglobin 10.3 g/dl (12.0-16.0); Imm Gran Abs Auto 0.53 X10*3/uL (0.00-0.03); Imm Gran Pct Auto 2.5 % (0.0-0.4); Lymphocytes Absolute Auto 0.9 X10*3/uL (1.2-4.9); Lymphocytes Percent Auto 4.1 % (20-40); Mean Corpuscular HGB Conc 34.1 g/dl (31.0-35.0); Mean Corpuscular Hemoglobin 29.7 pg (27.0-33.0); Monocytes Absolute Auto 0.9 X10*3/uL (0.1-1.2); Neutrophils Absolute Auto 19.1 x10*3/uL (2.0-8.3); Neutrophils Percent Auto 88.3 % (45-73); Red Blood Count 3.47 X10*6/uL (4.20-5.50)
[2023-06-09 06:40] LABS: Platelet Count 142 X10*3/uL (160-400); White Blood Count 21.6 X10*3/uL (4.8-10.8)
[2023-06-09 06:41] LABS: Anion Gap 14 (12-20); Blood Urea Nitrogen 23 mg/dL (9-16); Calcium 8.1 mg/dL (8.4-10.2); Carbon Dioxide 24 mmol/L (22-29); Chloride 109 mmol/L (96-108); Creatinine Clr Calc Pharmacy 102.1; Estimated Glomerular Filt Rate > 60; Glucose Random 180 mg/dL (60-115); Magnesium 1.4 mg/dL (1.6-2.6); Phosphorus 2.2 mg/dL (2.7-4.5); Potassium 2.5 mmol/L (3.3-5.1); Sodium 144 mmol/L (135-145)
[2023-06-09] MEDS: Pantoprazole Sodium 40 MG/10 ML VIAL IVPUSH (06:51)
--- NOTE | 2023-06-09 06:55 | PC.NURSE ---
Assumed care of patient at 19:15 (06/07). Pt has double lumen PICC to LUE on assuming care. Both lumens flush though no blood able to be aspirated on intial assessment, nor with further attempts. Nursing supervisor fireworks assembly also attempted and was unable to aspirate blood from either lumen. Covering METHODOLOGIST Francheska Nuñez made aware. As such, labs were drawn peripherally by phlebotomy. Patient with critical potassium and magnesium levels this morning; METHODOLOGIST notified and repletions ordered though meds not yet verified by pharmacy prior to shift change. Oncoming RN made aware during handoff report this morning. Please see shift assessments, tasks, and MAR for full details.
[2023-06-09] MEDS: Albuterol/Iprat 2.5/0.5MG 3 ML AMPUL.NEB INHALE ×3 (07:31→15:14)
[2023-06-09] MEDS: Magnesium Sulfate/H2O 2 GM/50 ML PIGGYBACK IV (07:45)
[2023-06-09] MEDS: Potassium Chloride Packet 20 MEQ PACKET 40 MEQ PO (07:46)
[2023-06-09 07:47] LABS: Glucose, Whole Blood 182 mg/dL (60-115)
[2023-06-09] MEDS: Potassium Chloride/H20 10 MEQ/100 ML PIGGYBACK 100 MEQ IV ×5 (07:49→23:33)
[2023-06-09] MEDS: Potassium Phosphate/NS 15 MMOL/250 ML PLAST..BAG 62.5 MMOL IV ×2 (07:52→12:04)
--- NOTE | 2023-06-09 08:16 | P.PNGS_ITS ---
Subjective Subjective Date of Service: 06/09/23 Interval history: Feels better. Denies abd pain. Had BM this morning. Tolerated liquids yesterday. Has solid breakfast at bedside. Physical Exam 2 Vital Signs: Vital Signs: Last Vital Signs Temp 97.1 F 06/09/23 02:00 Pulse 70 06/09/23 07:31 Resp 27 H 06/09/23 07:31 BP 148/73 H 06/09/23 07:00 Pulse Ox 97 06/09/23 07:00 O2 Del Method High Flow Nasal C annula 06/09/23 07:00 O2 Flow Rate 35 06/09/23 07:00 FiO2 30 06/09/23 07:00 BMI result Body Mass Index 39.0 Const: General: comfortable, no acute distress and alert Resp: Other: on high flow NC Effort & Inspection: able to speak in complete sentences and no respiratory distress GI: Inspection: No distended and Yes incision (clean) Palpation (GI): Soft to palpation, nontender and no guarding Neuro: General: moves all extremities Objective Data Active Medications Albuterol Sulfate (Albuterol Sulfate 90 Mcg 8 Gm Inhaler) 2 puff INHALE Q6H PRN PRN Reason: Shortness Of Breath Albuterol/Ipratropium (Albuterol/Iprat 2.5/0.5mg 3 Ml Ampul.Neb) 3 ml INHALE RQ4H WHILE AWAKE [facility] Last Admin: 06/09/23 07:31 Dose: 3 ml Documented By: DONNA Chlorothiazide Sodium (Chlorothiazide Sodium 500 Mg Vial) 500 mg IVPUSH DAILY [facility]; Protocol Clonazepam (Clonazepam 1 Mg Tablet) 1 mg PO TID [facility] Last Admin: 06/02/23 14:06 Dose: Not Given Documented By: RAVEN Non-Admin Reason: pt lethargic Heparin Sodium (Porcine) 50 (units/ Sodium Chloride 5 ml) 0 units IVFLUSH TID [facility] Last Admin: 06/08/23 21:26 Dose: 50 unit Documented By: DELFIN Fentanyl (Fentanyl Citrate/Pf 100 Mcg/2 Ml Vial) 25 mcg IVPUSH Q2H PRN; Protocol PRN Reason: pain and distress Last Admin: 06/08/23 21:18 Dose: 25 mcg Documented By: DELFIN Fluticasone/Vilanterol (Fluticasone/Vilanterol 200/25 Blst.W.Dev) 1 puff INHALE RDAILY [facility] Last Admin: 06/02/23 08:43 Dose: 1 puff Documented By: DONNA Gabapentin (Gabapentin 400 Mg Capsule) 800 mg PO BID [facility] Last Admin: 06/02/23 11:03 Dose: 800 mg Documented By: RAVEN Glucose (Glucose Gel 15 Gm Gel..Gram.) 15 gm PO Q15M PRN; Protocol PRN Reason: per Hypoglycemia Standing Ord. Dextrose (D10) 250 mls @ 750 mls/hr IV Q15M PRN; Protocol PRN Reason: per Hypoglycemia Standing Ord. Piperacillin Sod/Tazobactam (Sod 3.375 gm/ Sodium Chloride) 50 mls @ 100 mls/hr IV Q6H [facility] Last Infusion: 06/09/23 07:25 Dose: Infused Documented By: IMER Caspofungin 50 mg/ Sodium (Chloride) 250 mls @ 250 mls/hr IV Q24H [facility] Last Infusion: 06/08/23 11:06 Dose: Infused Documented By: LAMAR Acetaminophen (Ofirmev) 1,000 mg in 100 mls @ 400 mls/hr IV Q6H PRN PRN Reason: Fever >100.4 Last Infusion: 06/07/23 19:00 Dose: Infused Documented By: LAMAR Potassium Chloride (Potassium Chloride/H20) 10 meq in 100 mls @ 100 mls/hr IV Q1H [facility] Stop: 06/09/23 08:44 Last Admin: 06/09/23 07:49 Dose: 100 mls/hr Documented By: IMER Magnesium Sulfate (Magnesium Sulfate/H2o) 2 gm in 50 mls @ 25 mls/hr IV ONCE ONE Stop: 06/09/23 08:42 Last Admin: 06/09/23 07:45 Dose: 25 mls/hr Documented By: IMER Potassium Phosphate (Kphos) 15 mmol in 250 mls @ 62.5 mls/hr IV Q4H [facility] Stop: 06/09/23 14:44 Last Admin: 06/09/23 07:52 Dose: 62.5 mls/hr Documented By: IMER Insulin Human Lispro (Insulin Lispro 100 Unit/Ml 3 Ml Vial) 0 unit SUBCUT QIDACHS [facility]; Protocol Last Admin: 06/08/23 21:19 Dose: 2 unit Documented By: DELFIN Lactulose (Lactulose 20 Gm/30 Ml Solution) 10 gm PO DAILY [facility] Last Admin: 06/02/23 11:04 Dose: 10 gm Documented By: RAVEN Naloxone HCl (Naloxone Hcl 0.4 Mg/Ml Vial) 0.2 mg IVPUSH Q2M PRN PRN Reason: Excessive sedation or RR < 8 Ondansetron HCl (Ondansetron Hcl 4 Mg/2 Ml Vial) 4 mg IVPUSH Q6H PRN PRN Reason: Nausea and Vomiting Pantoprazole Sodium (Pantoprazole Sodium 40 Mg/10 Ml Vial) 40 mg IVPUSH DAILY@0630 [facility] Last Admin: 06/09/23 06:51 Dose: 40 mg Documented By: DELFIN Polyethylene Glycol (Polyethylene Glycol 3350 17 Gm Powd.Pack) 17 gm PO DAILY PRN PRN Reason: constipation Pramipexole Dihydrochloride (Pramipexole Di-Hcl 0.25 Mg Tablet) 0.25 mg PO DAILY [facility] Last Admin: 06/07/23 07:43 Dose: Not Given Documented By: LAMAR Non-Admin Reason: NPO Senna (Sennosides 8.6 Mg Tablet) 8.6 mg PO BEDTIME [facility] Last Admin: 06/06/23 21:18 Dose: Not Given Documented By: SAMUEL Non-Admin Reason: NPO Topiramate (Topiramate 100 Mg Tablet) 100 mg PO BID [facility] Last Admin: 06/07/23 07:44 Dose: Not Given Documented By: LAMAR Non-Admin Reason: NPO Vortioxetine (Vortioxetine Hydrobromide 20 Mg Tablet) 20 mg PO DAILY [facility] Last Admin: 06/07/23 07:44 Dose: Not Given Documented By: LAMAR Non-Ebony Reason: NPO Labs 06/09/23 05:52 06/09/23 05:52 Labs: Laboratory Results - last 24 hr 06/08/23 06/08/23 06/08/23 11:36 17:43 20:59 MCV MCH MCHC RDW Plt Count MPV Immature Gran % (Auto) Neut % (Auto) Lymph % (Auto) [place] % (Auto) Eos % (Auto) Baso % (Auto) Lymph # (Auto) [place] # (Auto) Eos # (Auto) Baso # (Auto) Abs Immat Gran (auto) Absolute Neuts (auto) Absolute Nucleated RBC Nucleated RBC % (auto) VBG pH VBG pCO2 VBG pO2 VBG HCO3 VBG O2 Saturation VBG Base Excess Anion Gap Estim Creat Clear Calc Estimated GFR POC Glucose 204 H 226 H 161 H Random Glucose Calcium Phosphorus Magnesium 06/09/23 06/09/23 06/09/23 05:50 05:52 07:42 MCV 87.0 MCH 29.7 MCHC 34.1 RDW 14.6 Plt Count 142 L D MPV Not Reportable Immature Gran % (Auto) 2.5 H Neut % (Auto) 88.3 H Lymph % (Auto) 4.1 L [place] % (Auto) 4.1 Eos % (Auto) 0.6 Baso % (Auto) 0.4 Lymph # (Auto) 0.9 L [place] # (Auto) 0.9 Eos # (Auto) 0.1 Baso # (Auto) 0.1 Abs Immat Gran (auto) 0.53 H Absolute Neuts (auto) 19.1 H Absolute Nucleated RBC 0.000 Nucleated RBC % (auto) 0.0 VBG pH 7.55 H VBG pCO2 28 VBG pO2 48 VBG HCO3 24 VBG O2 Saturation 83.0 VBG Base Excess 3.2 Anion Gap 14 Estim Creat Clear Calc 102.1 Estimated GFR > 60 POC Glucose 182 H Random Glucose 180 H Calcium 8.1 L D Phosphorus 2.2 L Magnesium 1.4 L* Procedures Date of Service Date of Service: 06/09/23 Progress Note: A&P Assessment and plan (1) Perforated ulcer: Status: Acute Plan On high flow NC this morning, more alert and conversing. Mechanical diet as tolerated. Incision clean and abd very benign. WBC however continues to trend up, no intraabdominal abscess on CT scan 06/06, no PE on chest CTA 06/07. Cont IV zosyn, capsofungin. Encourage OOB as tolerated, incentive spirometer use. Eventual PT consult. Time Spent With Patient Time: Total time managing care of this patient today ____ minutes. Quality Stroke Does the patient have a stroke diagnosis?: No VTE Prior VTE?: Yes VTE Risk Level:: Surgical - low VTE Device Contraindication: N/A - Device Ordered VTE Drug Contraindication: Treatment Not Tolerated
[2023-06-09] MEDS: Insulin Lispro 100 UNIT/ML 3 ML VIAL SUBCUT ×4 (08:21→20:48)
--- NOTE | 2023-06-09 09:45 | MHC.CLN ---
F/U PO INTAKE 25% X 1 MEAL DIET ADVANCED TO [facility] DISCUSSED WITH MD AT ROUNDS PT WITH INCREASED NUTRITION RISK R/T PROLONGED NPO STATUS (NOTED HX GASTRIC BYPASS SX) RECOMMEND ADDING ENSURE MAX BID TO INCREASE PO PROTEIN SUPPLEMENT TO PROVIDE 300KCALS, 60G PROTEIN MONITOR PO INTAKE CLOSELY AND ENCOURAGE SUPPLEMENT
--- NOTE | 2023-06-09 10:42 | P.PNCC_ITS ---
Subjective Subjective Date of Service: 06/09/23 Interval History: no significant overnight events Critical Care Time (minutes): 60 Physical Exam 2 Vital Signs: Vital Signs: Last Vital Signs Temp 97.4 F 06/09/23 08:00 Pulse 74 06/09/23 10:00 Resp 28 H 06/09/23 10:00 BP 123/66 06/09/23 10:00 Pulse Ox 98 06/09/23 10:00 O2 Del Method High Flow Nasal C annula 06/09/23 10:00 O2 Flow Rate 35 06/09/23 10:00 FiO2 30 06/09/23 10:00 BMI result Body Mass Index 39.0 Const: General: cooperative, healthy appearing, comfortable, no acute distress, well developed, alert, awake and Physically active O rientation/consciousness: patient oriented x3 HEENT: Head: Yes normal to inspection, Yes normocephalic and Yes atraumatic Eyes: General: appearance normal, both eyes and all related structures Neck: Neck: Yes normal visual inspection, Yes full ROM and Yes supple Chest: Chest palpation & inspection: normal inspection of the chest Resp: Other: some appreciable rales L anterior lung taylor; no appreciable rhonchi, wheezing Effort & Inspection: normal respiratory effort Cardio: Rate: regular rate Rhythm: regular rhythm GI: Other: appreciable midline incision, clean, dry, intact Inspection: Yes normal to inspection, No Abdominal wall edema and No distended Palpation (GI): Soft to palpation, not firm, nontender, no guarding and not rigid Skin: General skin exam: no rashes or lesions noted Neuro: General: patient oriented x3, tone normal, moves all extremities and no focal motor deficits Extrem: Other: appreciable anasarca General: Yes normal to inspection and Yes capillary refill normal Psych: Appearance: grossly normal Objective Data Labs 06/09/23 05:52 06/09/23 05:52 Labs: Laboratory Results - last 24 hr 06/08/23 06/08/23 06/08/23 11:36 17:43 20:59 WBC RBC Hgb Hct MCV MCH MCHC RDW Plt Count MPV Immature Gran % (Auto) Neut % (Auto) Lymph % (Auto) [place] % (Auto) Eos % (Auto) Baso % (Auto) Lymph # (Auto) [place] # (Auto) Eos # (Auto) Baso # (Auto) Abs Immat Gran (auto) Absolute Neuts (auto) Absolute Nucleated RBC Nucleated RBC % (auto) VBG pH VBG pCO2 VBG pO2 VBG HCO3 VBG O2 Saturation VBG Base Excess Sodium Potassium Chloride Carbon Dioxide Anion Gap BUN Creatinine Estim Creat Clear Calc Estimated GFR POC Glucose 204 H 226 H 161 H Random Glucose Calcium Phosphorus Magnesium 06/09/23 06/09/23 06/09/23 05:50 05:52 07:42 WBC 21.6 H RBC 3.47 L Hgb 10.3 L Hct 30.2 L MCV 87.0 MCH 29.7 MCHC 34.1 RDW 14.6 Plt Count 142 L D MPV Not Reportable Immature Gran % (Auto) 2.5 H Neut % (Auto) 88.3 H Lymph % (Auto) 4.1 L [place] % (Auto) 4.1 Eos % (Auto) 0.6 Baso % (Auto) 0.4 Lymph # (Auto) 0.9 L [place] # (Auto) 0.9 Eos # (Auto) 0.1 Baso # (Auto) 0.1 Abs Immat Gran (auto) 0.53 H Absolute Neuts (auto) 19.1 H Absolute Nucleated RBC 0.000 Nucleated RBC % (auto) 0.0 VBG pH 7.55 H VBG pCO2 28 VBG pO2 48 VBG HCO3 24 VBG O2 Saturation 83.0 VBG Base Excess 3.2 Sodium 144 Potassium 2.5 L* Chloride 109 H Carbon Dioxide 24 Anion Gap 14 BUN 23 H Creatinine 0.68 Estim Creat Clear Calc 102.1 Estimated GFR > 60 POC Glucose 182 H Random Glucose 180 H Calcium 8.1 L D Phosphorus 2.2 L Magnesium 1.4 L* Microbiology Microbiology Results: Microbiology 06/02/23 19:33 Blood - Venous Blood Culture - Final No growth after 5 days. 06/02/23 19:33 Blood - Venous Blood Culture - Final No growth after 5 days. 06/03/23 04:15 Abdominal Fluid Gram Stain - Final 06/03/23 04:15 Abdominal Fluid Routine Culture - Final 06/03/23 04:15 Abdominal Fluid Anaerobic Culture - Final Veillonella species 06/02/23 23:22 Urine Catheterized - [place] Catheter Urine Culture - Final No growth. Progress Note: A&P Assessment and plan (1) Acute hypoxic respiratory failure: Status: Acute (2) Perforated ulcer: Status: Acute (3) Spondylolisthesis, lumbar region: Status: Acute Plan Patient is a 62 Y F with metabolic syndrome, prior pulmonary embolism, prior gastric bypass, initially presented for L3-L4 fusion on 05/30; hospital course c/b perforated gastric ulcer, s/p exploratory laparotomy, c/b septic shock and multi-system organ failure N: no acute issues CV: septic shock, resolved R: acute hypoxic respiratory failure, improving; on HFNC, wean as tolerated GI: perforated gastric ulcer, empiric zosyn, caspofungin; PPI; PO : acute renal insufficiency, improving; volume overload, to continue hydrochlorothiazide; close monitoring of electrolytes H: chemical DVT prophylaxis w/ enoxaparin; prior pulmonary embolism ID: bowel perforation, empiric zosyn, caspofungin MSK: s/p L3-L4 fusion; OOB as tolerated E: no acute issues P: no acute issues Quality Stroke Does the patient have a stroke diagnosis?: No VTE Prior VTE?: Yes VTE Risk Level:: Surgical - low VTE Device Contraindication: N/A - Device Ordered VTE Drug Contraindication: Treatment Not Tolerated
[2023-06-09] MEDS: Caspofungin Acetate 50 MG in 0.9 % Sodium Chloride 250 ML 250 MG IV (10:58)
[2023-06-09] MEDS: Enoxaparin Sodium 40 MG/0.4 ML SYRINGE SUBCUT (10:58)
--- NOTE | 2023-06-09 13:10 | HO.NEUROPN_ITS ---
Neurosurgery Operative Note Date of Service: 06/09/23 Narrative: Procedure: L3-4 Oblique Lumbar Interbody Fusion POD: 9 Mrs. Stapleton was seen this morning in 255 in the ICU. She has been extubated. She is off intubation on HFNC. She is on empiric zosyn & caspofungin for infection ppx and lovenox for DVT ppx. Creatinine is down to 0.68 today, and BUN at 23. Her white count has elevated but to 21, but we spoke with general surgery today who expected this to trend upward after her exploratory laparotomy surgery. She is doing much better, is conversant, alert, awake and oriented. We discussed her complicated postoperative course with her, which primarily was a result of her gastric ulcer perforation. She states that overall she is feeling well, and was inquiring about when she will be able to leave the hospital. She reports no low back pain and no lower extremity / radicular symptoms. Patient was A&OX4 on exam. GCS 15, CN II-XII grossly intact. No focal neurological deficits. She follows multi step commands without issue. She is full strength of her bilateral lower extremities. She was able to roll over on her own and shows her posterior incision sites. There was still a dressing over these, but it was dry and showed no signs of staining. No surrounding erythema or edema. Overall, we are very happy to see that Claudette is doing so well. We anticipate she will be cleared to discharge home soon. She will need to call the office upon discharge and schedule her first post-operative appointment. We can / will manage her lumbar fusion related pain control if needed when she discharges home. She was seen and evaluated alongside the attending neurosurgeon Dr. Payton el. Pravin Cat MD,PhD [facility]
--- NOTE | 2023-06-09 14:08 | MHC.SL.SWA ---
Risk of Aspiration Due to: Medically Fragile Hx of Recent Extubation Dysphasia Diet Status: Recommend patient continue with GROUND/MECH ALTERED solids (NDD2), THIN liquids, and pills WHOLE w/ PUREE. Patient requests 1-1 ASSIST d/t HFNC and difficulty finding mouth. FROG CATCHER to continue to follow. Liquid Consistency and Strategies for Safe Swallow: Liquid Intake Recommendation: Thin Liquid Intake Strategies: Small Sips Solid Food Consistency: Dietary Recommendations: Grnd/Mech Altered (NDD2) Oral Medication Intake: Whole with Puree Please contact the pharmacy regarding appropriate crushable or liquid drug formulations that are available whenever modified delivery is recommended. Compensatory Strategies and Precautions to be Taken for Safe Swallow: Sitting Upright (90 deg) Liquids from Straw Alternate Liquids/Solids Rate of Ingestion Change Avoid Specific Foods Supervision While Eating and Drinking for Safe Swallow: Total Assistance (1:1) Foods to Avoid: Mixed consistencies. Swallowing Recommended Treatments: Compens. Strategy Educat. Recommendation for Speech: Inpatient Speech Therapy Rfp Writer Clinican/Clinical Fellow: No Supervisory Statement: I have reviewed and agree with the student/clinical fellow's documentation: N/A Speech Language Pathologist: Maggie Galdamez M.A., CCC-FROG CATCHER
[2023-06-09] MEDS: Chlorothiazide Sodium 500 MG VIAL 250 MG IVPUSH (15:39)
--- NOTE | 2023-06-09 15:57 | MHC.CM.PN ---
PT REMAINS IN ICU ON HF02. CM WILL CONTINUE TO FOLLOW FOR DC PLAN/NEEDS.
[2023-06-09] MEDS: Heparin Sodium,Porcine Flush 50 UNITS, 0.9 % Sodium Chloride Flush 5 ML IVFLUSH ×2 (16:14→20:49)
[2023-06-09 16:39] LABS: Glucose, Whole Blood 196 mg/dL (60-115)
[2023-06-09 20:19] LABS: VBG Base Excess 2.9 mmol/L; VBG HCO3 25 mmol/L (22-26); VBG pCO2 30 mmHg; VBG pH 7.52 (7.32-7.43); VBG pO2 41 mmHg
[2023-06-09 20:45] LABS: Venous Blood Gas Refer to POC result
[2023-06-09 20:45] LABS: Glucose, Whole Blood 209 mg/dL (60-115)
[2023-06-09] MEDS: Topiramate 100 MG TABLET PO (20:48)
[2023-06-09 20:51] LABS: Anion Gap 14 (12-20); Blood Urea Nitrogen 20 mg/dL (9-16); Calcium 7.5 mg/dL (8.4-10.2); Carbon Dioxide 22 mmol/L (22-29); Chloride 107 mmol/L (96-108); Creatinine Clr Calc Pharmacy 82.2; Estimated Glomerular Filt Rate > 60; Glucose Random 229 mg/dL (60-115); Magnesium 1.6 mg/dL (1.6-2.6); Phosphorus 2.7 mg/dL (2.7-4.5); Potassium 2.6 mmol/L (3.3-5.1); Sodium 140 mmol/L (135-145)
[2023-06-09] MEDS: Potassium Chloride ER 20 MEQ TAB.ER.PRT 40 MEQ PO (21:28)
[2023-06-10] VITALS (13 sets, daily range): BP systolic 126–176; BP diastolic 56–80; PULSE 71–82; RESP 18–32; TEMP 36.5–37; O2SAT 91–98
[2023-06-10] MEDS: Potassium Chloride/H20 10 MEQ/100 ML PIGGYBACK 100 MEQ IV ×3 (00:35→09:20)
--- NOTE | 2023-06-10 00:46 | PM.EVENT ---
Documented by User: Francheska Nuñez NP 06/10/23 01:03 Event Note Date of Service: 06/10/23 Event Note: 62 Y F with metabolic syndrome, prior pulmonary embolism, prior gastric bypass, s/p L3-L4 fusion on 05/30; hospital course c/b perforated gastric ulcer, s/p exploratory laparotomy, c/b septic shock and multi-system organ failure requiring transfer to ICU. Septic shock now resolved. Acute hypoxic respiratory failure, improving; on HFNC. Perforated gastric ulcer treated with empiric zosyn, caspofungin, PPI. Now taking full PO diet. Acute renal insufficiency, improving. Diuretics for volume overload, electrolytes repleted PRN. Pt no longer requires ICU level of care. Transfer to [facility] floor. Pt signed out to hospitalist.? Time Spent With Patient Time: Total time managing care of this patient today ____ minutes. Documented by User: Margarita Brown MD 06/10/23 08:00 Event Note Date of Service: 06/10/23
[2023-06-10 00:53] LABS: Venous Blood Gas Refer to POC result
--- NOTE | 2023-06-10 04:02 | PC.NURSE ---
Patient downgraded from ICU to S4 this morning, arrived to med-tele s4 at approximately 01:45. Patient was transferred on an oxymask instead of HFNC and on arrival pt refused to further wear HFNC that had been in place prior to transfer; continues on 3L oxymask since arrival with spo2 maintaining >90% per oxygen protocol. Mild LOFTON noted when assisted OOB to bedside commode, otherwise no sob. Breathing is even and unlabored without distress. Pt denies chest pain. SR 70's on tele. Continues with edema to hands and BLE. +pp/cms. Continues on 1:1 feed ground mechanical diet with thin liquids and pills in puree per ST consult recommendations on 06/08. Aspiration precautions in place. BM this morning, mushy brown. Denies n/v. Denies pain. Surgical incisions to abdomen and back with ABDs changed earlier his evening remain c/d/i. DL PICC to LUE remains patent to flushing though still neither lumen aspirates blood return. High falls measures and in-room camera in place. Plan of care continues.
[2023-06-10] MEDS: Piperacillin Sodium/Tazobactam 3.375 GM in 0.9 % Sodium Chloride 50 ML IV ×4 (06:20→23:48)
[2023-06-10] MEDS: Pantoprazole Sodium 40 MG/10 ML VIAL IVPUSH (06:21)
[2023-06-10 07:00] LABS: Basophils Absolute Auto 0.1 X10*3/uL (0.0-0.2); Basophils Percent Auto 0.4 % (0-2); Eosinophils Absolute Auto 0.2 X10*3/uL (0.0-0.4); Eosinophils Percent Auto 0.8 % (0-4); Hematocrit 29.9 % (37.0-47.0); Hemoglobin 10.2 g/dl (12.0-16.0); Imm Gran Abs Auto 0.41 X10*3/uL (0.00-0.03); Imm Gran Pct Auto 1.8 % (0.0-0.4); Lymphocytes Percent Auto 4.1 % (20-40); MANUAL DIFF FLAG SCAN; Mean Corpuscular HGB Conc 34.1 g/dl (31.0-35.0); Mean Corpuscular Hemoglobin 29.8 pg (27.0-33.0); Mean Corpuscular Volume 87.4 fL (80.0-98.0); Monocytes Absolute Auto 0.8 X10*3/uL (0.1-1.2); Monocytes Percent Auto 3.4 % (2-11); Neutrophils Absolute Auto 20.9 x10*3/uL (2.0-8.3); Neutrophils Percent Auto 89.5 % (45-73); PLT CLUMP 1; Red Blood Count 3.42 X10*6/uL (4.20-5.50); Red Cell Distribution Width 14.7 % (11.0-16.0); SCAN SMEAR FLAG 1
[2023-06-10 07:29] LABS: Anion Gap 14 (12-20); Blood Urea Nitrogen 17 mg/dL (9-16); Carbon Dioxide 19 mmol/L (22-29); Chloride 108 mmol/L (96-108); Creatinine Clr Calc Pharmacy 92.1; Estimated Glomerular Filt Rate > 60; Glucose Random 182 mg/dL (60-115); Magnesium 1.7 mg/dL (1.6-2.6); Phosphorus 2.6 mg/dL (2.7-4.5); Sodium 138 mmol/L (135-145)
[2023-06-10 07:33] LABS: Potassium 2.8 mmol/L (3.3-5.1)
[2023-06-10 07:35] LABS: Glucose, Whole Blood 178 mg/dL (60-115)
[2023-06-10 07:37] LABS: Platelet Count 155 X10*3/uL (160-400); White Blood Count 23.3 X10*3/uL (4.8-10.8)
[2023-06-10] MEDS: Potassium Chloride Packet 20 MEQ PACKET 40 MEQ PO ×2 (08:09→16:10)
[2023-06-10] MEDS: Insulin Lispro 100 UNIT/ML 3 ML VIAL SUBCUT ×4 (08:10→20:28)
[2023-06-10 08:30] LABS: SLIDE REVIEW VERIFIED
[2023-06-10] MEDS: Heparin Sodium,Porcine Flush 50 UNITS, 0.9 % Sodium Chloride Flush 5 ML IVFLUSH ×3 (09:20→20:28)
[2023-06-10] MEDS: Chlorothiazide Sodium 500 MG VIAL 250 MG IVPUSH (09:21)
[2023-06-10] MEDS: Vortioxetine Hydrobromide 20 MG TABLET PO (09:21)
[2023-06-10] MEDS: Topiramate 100 MG TABLET PO ×2 (09:21→20:28)
[2023-06-10] MEDS: Furosemide 20 MG/2 ML VIAL IVPUSH (09:21)
[2023-06-10 11:11] LABS: Glucose, Whole Blood 177 mg/dL (60-115)
[2023-06-10] MEDS: Enoxaparin Sodium 40 MG/0.4 ML SYRINGE SUBCUT (11:31)
--- NOTE | 2023-06-10 11:42 | P.PNIM_ITS ---
Subjective Subjective Date of Service: 06/10/23 Interval History: Seen and evaluated this morning Alert and interactvie tolerating diet having bowel movements Kumar on O2 supplement no reported overnight events Review of Systems Review of Systems: Yes all other systems are reviewed and are negative Physical Exam 2 Vital Signs: Vital Signs: Last Vital Signs Temp 97.9 F 06/10/23 11:12 Pulse 80 06/10/23 11:23 Resp 18 06/10/23 11:12 BP 138/65 06/10/23 11:12 Pulse Ox 92 06/10/23 11:23 O2 Del Method Oxymask 06/10/23 11:12 O2 Flow Rate 3 06/10/23 11:12 FiO2 30 06/10/23 01:00 BMI result Body Mass Index 39.0 Const: Other: Constitutional : Awake, frail looking, not in distress Neck : Normal inspection, Supple Cardiovascular : RRR, no JVP, trace lower extremity edema Respiratory : good bilateral air entry, no crackles, expiratory wheezes, On O2 supplement Gastrointestinal: soft, lax, Normal bowel sounds, Non tender Skin : Warm, Dry Neurological : Alert & oriented x3, No focal deficit Objective Data Active Medications Albuterol Sulfate (Albuterol Sulfate 90 Mcg 8 Gm Inhaler) 2 puff INHALE Q6H PRN PRN Reason: Shortness Of Breath Chlorothiazide Sodium (Chlorothiazide Sodium 500 Mg Vial) 250 mg IVPUSH DAILY [facility]; Protocol Last Admin: 06/10/23 09:21 Dose: 250 mg Documented By: ELIJAH Clonazepam (Clonazepam 1 Mg Tablet) 1 mg PO TID [facility] Last Admin: 06/02/23 14:06 Dose: Not Given Documented By: RAVEN Non-Admin Reason: pt lethargic Heparin Sodium (Porcine) 50 (units/ Sodium Chloride 5 ml) 0 units IVFLUSH TID [facility] Last Admin: 06/10/23 09:20 Dose: 50 unit Documented By: ELIJAH Enoxaparin Sodium (Enoxaparin Sodium 40 Mg/0.4 Ml Syringe) 40 mg SUBCUT Q24H [facility] Last Admin: 06/10/23 11:31 Dose: 40 mg Documented By: CHESTER Fluticasone/Vilanterol (Fluticasone/Vilanterol 200/25 Blst.W.Dev) 1 puff INHALE RDAILY [facility] Last Admin: 06/02/23 08:43 Dose: 1 puff Documented By: DONNA Furosemide (Furosemide 20 Mg/2 Ml Vial) 20 mg IVPUSH DAILY [facility]; Protocol Last Admin: 06/10/23 09:21 Dose: 20 mg Documented By: ELIJAH Gabapentin (Gabapentin 400 Mg Capsule) 800 mg PO BID [facility] Last Admin: 06/02/23 11:03 Dose: 800 mg Documented By: RAVEN Glucose (Glucose Gel 15 Gm Gel..Gram.) 15 gm PO Q15M PRN; Protocol PRN Reason: per Hypoglycemia Standing Ord. Hydroxyzine HCl (Hydroxyzine Hcl 10 Mg Tablet) 10 mg PO Q8H PRN PRN Reason: Anxiety Dextrose (D10) 250 mls @ 750 mls/hr IV Q15M PRN; Protocol PRN Reason: per Hypoglycemia Standing Ord. Piperacillin Sod/Tazobactam (Sod 3.375 gm/ Sodium Chloride) 50 mls @ 100 mls/hr IV Q6H [facility] Last Admin: 06/10/23 11:31 Dose: 100 mls/hr Documented By: CHESTER Caspofungin 50 mg/ Sodium (Chloride) 250 mls @ 250 mls/hr IV Q24H [facility] Last Infusion: 06/09/23 12:01 Dose: Infused Documented By: IMER Insulin Human Lispro (Insulin Lispro 100 Unit/Ml 3 Ml Vial) 0 unit SUBCUT QIDACHS [facility]; Protocol Last Admin: 06/10/23 11:29 Dose: 2 unit Documented By: CHESTER Lactulose (Lactulose 20 Gm/30 Ml Solution) 10 gm PO DAILY [facility] Last Admin: 06/02/23 11:04 Dose: 10 gm Documented By: RAVEN Naloxone HCl (Naloxone Hcl 0.4 Mg/Ml Vial) 0.2 mg IVPUSH Q2M PRN PRN Reason: Excessive sedation or RR < 8 Ondansetron HCl (Ondansetron Hcl 4 Mg/2 Ml Vial) 4 mg IVPUSH Q6H PRN PRN Reason: Nausea and Vomiting Pantoprazole Sodium (Pantoprazole Sodium 40 Mg/10 Ml Vial) 40 mg IVPUSH DAILY@0630 [facility] Last Admin: 06/10/23 06:21 Dose: 40 mg Documented By: DELFIN Polyethylene Glycol (Polyethylene Glycol 3350 17 Gm Powd.Pack) 17 gm PO DAILY PRN PRN Reason: constipation Pramipexole Dihydrochloride (Pramipexole Di-Hcl 0.25 Mg Tablet) 0.25 mg PO DAILY [facility] Last Admin: 06/07/23 07:43 Dose: Not Given Documented By: LAMAR Non-Admin Reason: NPO Senna (Sennosides 8.6 Mg Tablet) 8.6 mg PO BEDTIME [facility] Last Admin: 06/06/23 21:18 Dose: Not Given Documented By: SAMUEL Non-Admin Reason: NPO Topiramate (Topiramate 100 Mg Tablet) 100 mg PO BID [facility] Last Admin: 06/10/23 09:21 Dose: 100 mg Documented By: ELIJAH Vortioxetine (Vortioxetine Hydrobromide 20 Mg Tablet) 20 mg PO DAILY [facility] Last Admin: 06/10/23 09:21 Dose: 20 mg Documented By: ELIJAH Labs 06/10/23 06:31 06/10/23 06:31 Labs: Laboratory Results - last 24 hr 06/09/23 06/09/23 06/09/23 16:36 19:53 19:58 MCV MCH MCHC RDW Plt Count MPV Immature Gran % (Auto) Neut % (Auto) Lymph % (Auto) [place] % (Auto) Eos % (Auto) Baso % (Auto) Lymph # (Auto) [place] # (Auto) Eos # (Auto) Baso # (Auto) Abs Immat Gran (auto) Absolute Neuts (auto) Absolute Nucleated RBC Nucleated RBC % (auto) Smear Tech's Comments VBG pH 7.52 H VBG pCO2 30 VBG pO2 41 VBG HCO3 25 VBG O2 Saturation 74.0 VBG Base Excess 2.9 Anion Gap 14 Estim Creat Clear Calc 82.2 Estimated GFR > 60 POC Glucose 196 H Random Glucose 229 H Calcium 7.5 L D Phosphorus 2.7 Magnesium 1.6 06/09/23 06/10/23 06/10/23 20:42 06:31 07:27 MCV 87.4 MCH 29.8 MCHC 34.1 RDW 14.7 Plt Count 155 L MPV Not Reportable Immature Gran % (Auto) 1.8 H Neut % (Auto) 89.5 H Lymph % (Auto) 4.1 L [place] % (Auto) 3.4 Eos % (Auto) 0.8 Baso % (Auto) 0.4 Lymph # (Auto) 1.0 L [place] # (Auto) 0.8 Eos # (Auto) 0.2 Baso # (Auto) 0.1 Abs Immat Gran (auto) 0.41 H Absolute Neuts (auto) 20.9 H Absolute Nucleated RBC 0.000 Nucleated RBC % (auto) 0.0 Smear Tech's Comments VERIFIED VBG pH VBG pCO2 VBG pO2 VBG HCO3 VBG O2 Saturation VBG Base Excess Anion Gap 14 Estim Creat Clear Calc 92.1 Estimated GFR > 60 POC Glucose 209 H 178 H Random Glucose 182 H Calcium 8.0 L D Phosphorus 2.6 L Magnesium 1.7 06/10/23 11:05 MCV MCH MCHC RDW Plt Count MPV Immature Gran % (Auto) Neut % (Auto) Lymph % (Auto) [place] % (Auto) Eos % (Auto) Baso % (Auto) Lymph # (Auto) [place] # (Auto) Eos # (Auto) Baso # (Auto) Abs Immat Gran (auto) Absolute Neuts (auto) Absolute Nucleated RBC Nucleated RBC % (auto) Smear Tech's Comments VBG pH VBG pCO2 VBG pO2 VBG HCO3 VBG O2 Saturation VBG Base Excess Anion Gap Estim Creat Clear Calc Estimated GFR POC Glucose 177 H Random Glucose Calcium Phosphorus Magnesium Assessment and Plan (1) Septic shock: Status: Acute (2) Bowel perforation: Status: Acute (3) Perforated ulcer: Status: Acute (4) Acute hypoxic respiratory failure: Status: Acute (5) Acute kidney injury: Status: Acute Plan A 62 years old lady with PMH of asthma, DMII, neuropathy among others who presented for elective L3-4 Discectomy by neurosurgery developed hypoxia this morning. Perforated gastric ulcer s\p lapratomy surgery following advance diet as tolerated IV Pantoprazole Septic shock 2/2 intraabdominal infx resolved continue Zosyn and Caspofungin Cx negative Acute hypoxic resp failure 2/[address] showed bilateral effusion and infiltrates wean down O2 on Abx JOSE MANUEL resolved Acute hypokalemia K 2.8, give PO and IV replacement follow BMP The patient will need overnight stay for treatment of above pending clinical improvement and safe discharge plan Quality Stroke Does the patient have a stroke diagnosis?: No VTE Prior VTE?: Yes VTE Risk Level:: Surgical - low VTE Device Contraindication: N/A - Device Ordered VTE Drug Contraindication: Treatment Not Tolerated
--- NOTE | 2023-06-10 12:16 | MHC.CM.PN ---
PT is recommending STR; CM will follow.
[2023-06-10] MEDS: Caspofungin Acetate 50 MG in 0.9 % Sodium Chloride 250 ML 250 MG IV (12:21)
--- NOTE | 2023-06-10 12:30 | MHC.CM.PN ---
CM met with Patient to discuss PT's recommendation for STR; Patient states she wants to go home. Patient has a SNF bed offer @ [facility] if she changes her mind.
--- NOTE | 2023-06-10 13:09 | MHC.SL.SWA ---
Risk of Aspiration Due to: Medically Fragile Hx of Recent Extubation Dysphasia Diet Status: Recommend patient continue with GROUND/MECH ALTERED solids (NDD2), THIN liquids, and pills WHOLE w/ PUREE. Patient may need assistance with tray set up. Encourage self-feed. Liquid Consistency and Strategies for Safe Swallow: Liquid Intake Recommendation: Thin Liquid Intake Strategies: Small Sips Solid Food Consistency: Dietary Recommendations: Grnd/Mech Altered (NDD2) Oral Medication Intake: Whole with Puree Please contact the pharmacy regarding appropriate crushable or liquid drug formulations that are available whenever modified delivery is recommended. Compensatory Strategies and Precautions to be Taken for Safe Swallow: Sitting Upright (90 deg) Liquids from Straw Alternate Liquids/Solids Rate of Ingestion Change Avoid Specific Foods Supervision While Eating and Drinking for Safe Swallow: Total Assistance (1:1) Foods to Avoid: Mixed consistencies. Swallowing Recommended Treatments: Compens. Strategy Educat. Recommendation for Speech: Inpatient Speech Therapy Cabin Equipment Supervisor Clinican/Clinical Fellow: No Supervisory Statement: I have reviewed and agree with the student/clinical fellow's documentation: N/A Speech Language Pathologist: Maggie Galdamez M.A., CCC-ANIMAL MAINTENANCE SUPERVISOR
--- NOTE | 2023-06-10 13:16 | MHC.CLN ---
RE: CONSULT PT PREFERS TO NOT EAT MEAT OF ANY KIND PT REPORTS SHE IS NOT VEGETARIAN JUST DOES NOT LIKE MEAT PT USES ENSURE MAX MAIN PROTEIN SOURCE NOTED HX GASTRIC BYPASS WILL INCREASE ENSURE MAX TO TID
--- NOTE | 2023-06-10 13:18 | P.PNNP_ITS ---
Subjective Subjective Date of Service: 06/10/23 Interval history: events noted Physical Exam 2 Vital Signs: Vital Signs: Last Vital Signs Temp 97.9 F 06/10/23 11:12 Pulse 80 06/10/23 11:23 Resp 18 06/10/23 11:12 BP 138/65 06/10/23 11:12 Pulse Ox 92 06/10/23 11:23 O2 Del Method Oxymask 06/10/23 11:12 O2 Flow Rate 3 06/10/23 11:12 FiO2 30 06/10/23 01:00 BMI result Body Mass Index 39.0 Neck: Neck: Yes supple Resp: Auscultation: clear to auscultation bilaterally Cardio: Palpation: no palpable S3 Heart sounds: no rubs GI: Palpation (GI): Soft to palpation Auscultation: normal bowel sounds Neuro: Motor exam (neuro): no asterixis Objective Data Labs 06/10/23 06:31 06/10/23 06:31 Labs: Laboratory Results - last 24 hr 06/09/23 06/09/23 06/09/23 16:36 19:53 19:58 WBC RBC Hgb Hct MCV MCH MCHC RDW Plt Count MPV Immature Gran % (Auto) Neut % (Auto) Lymph % (Auto) [place] % (Auto) Eos % (Auto) Baso % (Auto) Lymph # (Auto) [place] # (Auto) Eos # (Auto) Baso # (Auto) Abs Immat Gran (auto) Absolute Neuts (auto) Absolute Nucleated RBC Nucleated RBC % (auto) Smear Tech's Comments VBG pH 7.52 H VBG pCO2 30 VBG pO2 41 VBG HCO3 25 VBG O2 Saturation 74.0 VBG Base Excess 2.9 Sodium 140 Potassium 2.6 L* Chloride 107 Carbon Dioxide 22 Anion Gap 14 BUN 20 H Creatinine 0.83 Estim Creat Clear Calc 82.2 Estimated GFR > 60 POC Glucose 196 H Random Glucose 229 H Calcium 7.5 L D Phosphorus 2.7 Magnesium 1.6 06/09/23 06/10/23 06/10/23 20:42 06:31 07:27 WBC 23.3 H RBC 3.42 L Hgb 10.2 L Hct 29.9 L MCV 87.4 MCH 29.8 MCHC 34.1 RDW 14.7 Plt Count 155 L MPV Not Reportable Immature Gran % (Auto) 1.8 H Neut % (Auto) 89.5 H Lymph % (Auto) 4.1 L [place] % (Auto) 3.4 Eos % (Auto) 0.8 Baso % (Auto) 0.4 Lymph # (Auto) 1.0 L [place] # (Auto) 0.8 Eos # (Auto) 0.2 Baso # (Auto) 0.1 Abs Immat Gran (auto) 0.41 H Absolute Neuts (auto) 20.9 H Absolute Nucleated RBC 0.000 Nucleated RBC % (auto) 0.0 Smear Tech's Comments VERIFIED VBG pH VBG pCO2 VBG pO2 VBG HCO3 VBG O2 Saturation VBG Base Excess Sodium 138 Potassium 2.8 L* Chloride 108 Carbon Dioxide 19 L Anion Gap 14 BUN 17 H Creatinine 0.74 Estim Creat Clear Calc 92.1 Estimated GFR > 60 POC Glucose 209 H 178 H Random Glucose 182 H Calcium 8.0 L D Phosphorus 2.6 L Magnesium 1.7 06/10/23 11:05 WBC RBC Hgb Hct MCV MCH MCHC RDW Plt Count MPV Immature Gran % (Auto) Neut % (Auto) Lymph % (Auto) [place] % (Auto) Eos % (Auto) Baso % (Auto) Lymph # (Auto) [place] # (Auto) Eos # (Auto) Baso # (Auto) Abs Immat Gran (auto) Absolute Neuts (auto) Absolute Nucleated RBC Nucleated RBC % (auto) Smear Tech's Comments VBG pH VBG pCO2 VBG pO2 VBG HCO3 VBG O2 Saturation VBG Base Excess Sodium Potassium Chloride Carbon Dioxide Anion Gap BUN Creatinine Estim Creat Clear Calc Estimated GFR POC Glucose 177 H Random Glucose Calcium Phosphorus Magnesium Microbiology Microbiology Results: Microbiology 06/02/23 19:33 Blood - Venous Blood Culture - Final No growth after 5 days. 06/02/23 19:33 Blood - Venous Blood Culture - Final No growth after 5 days. 06/03/23 04:15 Abdominal Fluid Gram Stain - Final 06/03/23 04:15 Abdominal Fluid Routine Culture - Final 06/03/23 04:15 Abdominal Fluid Anaerobic Culture - Final Veillonella species 06/02/23 23:22 Urine Catheterized - [place] Catheter Urine Culture - Final No growth. Procedures Date of Service Date of Service: 06/10/23 Assessment & Plan Assessment and plan (1) Acute kidney injury: Status: Acute Plan 62 yr old woman with JOSE MANUEL JOSE MANUEL most likely from ischemic ATN No evidence of obstructive uropathy AGN/AIN seem unlikely Hypokalemia Creatinine is back to baseline Mild hypernatremia Avoid loop diuretic Can use thiazides PRN to keep O > I Replace K Time Spent With Patient Time: Total time managing care of this patient today ____ minutes. Progress Note: Quality Stroke Does the patient have a stroke diagnosis?: No
--- NOTE | 2023-06-10 16:24 | PM.PNGS ---
Subjective Subjective Date of Service: 06/10/23 Patient reports: no new complaints and tolerating a regular diet Physical Exam Vital Signs: Vital Signs: Last Vital Signs Temp 97.8 F 06/10/23 15:22 Pulse 71 06/10/23 15:22 Resp 18 06/10/23 15:22 BP 138/67 06/10/23 15:22 Pulse Ox 96 06/10/23 15:22 O2 Del Method Nasal Cannula 06/10/23 15:22 O2 Flow Rate 3 06/10/23 15:22 FiO2 30 06/10/23 01:00 BMI result Body Mass Index 39.0 Const: General: no acute distress Nutritional Appearance: well nourished Resp: Effort & Inspection: no audible wheezes and no cough GI: Other: Incision clean and intact Palpation (GI): Soft to palpation, nontender, no guarding and not rigid Objective Data Active Medications Albuterol Sulfate (Albuterol Sulfate 90 Mcg 8 Gm Inhaler) 2 puff INHALE Q6H PRN PRN Reason: Shortness Of Breath Chlorothiazide Sodium (Chlorothiazide Sodium 500 Mg Vial) 250 mg IVPUSH DAILY [facility]; Protocol Last Admin: 06/10/23 09:21 Dose: 250 mg Documented By: ELIJAH Clonazepam (Clonazepam 1 Mg Tablet) 1 mg PO TID [facility] Last Admin: 06/02/23 14:06 Dose: Not Given Documented By: RAVEN Non-Admin Reason: pt lethargic Heparin Sodium (Porcine) 50 (units/ Sodium Chloride 5 ml) 0 units IVFLUSH TID [facility] Last Admin: 06/10/23 16:08 Dose: 50 unit Documented By: CHESTER Enoxaparin Sodium (Enoxaparin Sodium 40 Mg/0.4 Ml Syringe) 40 mg SUBCUT Q24H [facility] Last Admin: 06/10/23 11:31 Dose: 40 mg Documented By: CHESTER Fluticasone/Vilanterol (Fluticasone/Vilanterol 200/25 Blst.W.Dev) 1 puff INHALE RDAILY [facility] Last Admin: 06/02/23 08:43 Dose: 1 puff Documented By: DONNA Furosemide (Furosemide 20 Mg/2 Ml Vial) 20 mg IVPUSH DAILY [facility]; Protocol Last Admin: 06/10/23 09:21 Dose: 20 mg Documented By: ELIJAH Gabapentin (Gabapentin 400 Mg Capsule) 800 mg PO BID [facility] Last Admin: 06/02/23 11:03 Dose: 800 mg Documented By: RAVEN Glucose (Glucose Gel 15 Gm Gel..Gram.) 15 gm PO Q15M PRN; Protocol PRN Reason: per Hypoglycemia Standing Ord. Hydroxyzine HCl (Hydroxyzine Hcl 10 Mg Tablet) 10 mg PO Q8H PRN PRN Reason: Anxiety Dextrose (D10) 250 mls @ 750 mls/hr IV Q15M PRN; Protocol PRN Reason: per Hypoglycemia Standing Ord. Piperacillin Sod/Tazobactam (Sod 3.375 gm/ Sodium Chloride) 50 mls @ 100 mls/hr IV Q6H [facility] Last Infusion: 06/10/23 12:39 Dose: Infused Documented By: CHESTER Caspofungin 50 mg/ Sodium (Chloride) 250 mls @ 250 mls/hr IV Q24H [facility] Last Infusion: 06/10/23 14:55 Dose: Infused Documented By: CHESTER Insulin Human Lispro (Insulin Lispro 100 Unit/Ml 3 Ml Vial) 0 unit SUBCUT QIDACHS [facility]; Protocol Last Admin: 06/10/23 11:29 Dose: 2 unit Documented By: CHESTER Lactulose (Lactulose 20 Gm/30 Ml Solution) 10 gm PO DAILY [facility] Last Admin: 06/02/23 11:04 Dose: 10 gm Documented By: RAVEN Naloxone HCl (Naloxone Hcl 0.4 Mg/Ml Vial) 0.2 mg IVPUSH Q2M PRN PRN Reason: Excessive sedation or RR < 8 Ondansetron HCl (Ondansetron Hcl 4 Mg/2 Ml Vial) 4 mg IVPUSH Q6H PRN PRN Reason: Nausea and Vomiting Pantoprazole Sodium (Pantoprazole Sodium 40 Mg/10 Ml Vial) 40 mg IVPUSH DAILY@0630 [facility] Last Admin: 06/10/23 06:21 Dose: 40 mg Documented By: DELFIN Polyethylene Glycol (Polyethylene Glycol 3350 17 Gm Powd.Pack) 17 gm PO DAILY PRN PRN Reason: constipation Pramipexole Dihydrochloride (Pramipexole Di-Hcl 0.25 Mg Tablet) 0.25 mg PO DAILY [facility] Last Admin: 06/07/23 07:43 Dose: Not Given Documented By: LAMAR Non-Admin Reason: NPO Senna (Sennosides 8.6 Mg Tablet) 8.6 mg PO BEDTIME [facility] Last Admin: 06/06/23 21:18 Dose: Not Given Documented By: SAMUEL Non-Admin Reason: NPO Topiramate (Topiramate 100 Mg Tablet) 100 mg PO BID [facility] Last Admin: 06/10/23 09:21 Dose: 100 mg Documented By: ELIJAH Vortioxetine (Vortioxetine Hydrobromide 20 Mg Tablet) 20 mg PO DAILY [facility] Last Admin: 06/10/23 09:21 Dose: 20 mg Documented By: ELIJAH Labs 06/10/23 06:31 06/10/23 06:31 Labs: Laboratory Results - last 24 hr 06/09/23 06/09/23 06/09/23 16:36 19:53 19:58 MCV MCH MCHC RDW Plt Count MPV Immature Gran % (Auto) Neut % (Auto) Lymph % (Auto) [place] % (Auto) Eos % (Auto) Baso % (Auto) Lymph # (Auto) [place] # (Auto) Eos # (Auto) Baso # (Auto) Abs Immat Gran (auto) Absolute Neuts (auto) Absolute Nucleated RBC Nucleated RBC % (auto) Smear Tech's Comments VBG pH 7.52 H VBG pCO2 30 VBG pO2 41 VBG HCO3 25 VBG O2 Saturation 74.0 VBG Base Excess 2.9 Anion Gap 14 Estim Creat Clear Calc 82.2 Estimated GFR > 60 POC Glucose 196 H Random Glucose 229 H Calcium 7.5 L D Phosphorus 2.7 Magnesium 1.6 06/09/23 06/10/23 06/10/23 20:42 06:31 07:27 MCV 87.4 MCH 29.8 MCHC 34.1 RDW 14.7 Plt Count 155 L MPV Not Reportable Immature Gran % (Auto) 1.8 H Neut % (Auto) 89.5 H Lymph % (Auto) 4.1 L [place] % (Auto) 3.4 Eos % (Auto) 0.8 Baso % (Auto) 0.4 Lymph # (Auto) 1.0 L [place] # (Auto) 0.8 Eos # (Auto) 0.2 Baso # (Auto) 0.1 Abs Immat Gran (auto) 0.41 H Absolute Neuts (auto) 20.9 H Absolute Nucleated RBC 0.000 Nucleated RBC % (auto) 0.0 Smear Tech's Comments VERIFIED VBG pH VBG pCO2 VBG pO2 VBG HCO3 VBG O2 Saturation VBG Base Excess Anion Gap 14 Estim Creat Clear Calc 92.1 Estimated GFR > 60 POC Glucose 209 H 178 H Random Glucose 182 H Calcium 8.0 L D Phosphorus 2.6 L Magnesium 1.7 06/10/23 11:05 MCV MCH MCHC RDW Plt Count MPV Immature Gran % (Auto) Neut % (Auto) Lymph % (Auto) [place] % (Auto) Eos % (Auto) Baso % (Auto) Lymph # (Auto) [place] # (Auto) Eos # (Auto) Baso # (Auto) Abs Immat Gran (auto) Absolute Neuts (auto) Absolute Nucleated RBC Nucleated RBC % (auto) Smear Tech's Comments VBG pH VBG pCO2 VBG pO2 VBG HCO3 VBG O2 Saturation VBG Base Excess Anion Gap Estim Creat Clear Calc Estimated GFR POC Glucose 177 H Random Glucose Calcium Phosphorus Magnesium Procedures Date of Service Date of Service: 06/10/23 Progress Note: A&P Assessment and plan (1) Bowel perforation: Status: Acute (2) Perforated ulcer: Status: Acute Plan Pod 7 following exploratory laparotomy and repair of perforated ulcer at Pamela-en-Y anastomosis. Patient is much improved tolerating diet and passing bowels. WBC remains elevated. Patient now in [employer]. Time Spent With Patient Time: Total time managing care of this patient today ____ minutes. Quality Stroke Does the patient have a stroke diagnosis?: No VTE Prior VTE?: Yes VTE Risk Level:: Surgical - low VTE Device Contraindication: N/A - Device Ordered VTE Drug Contraindication: Treatment Not Tolerated
[2023-06-10 16:56] LABS: Glucose, Whole Blood 157 mg/dL (60-115)
[2023-06-10 20:20] LABS: Glucose, Whole Blood 161 mg/dL (60-115)
[2023-06-11 03:20] VITALS: BP 141/63; PULSE 80; RESP 18; TEMP 36.8; O2SAT 96
[2023-06-11] MEDS: Piperacillin Sodium/Tazobactam 3.375 GM in 0.9 % Sodium Chloride 50 ML IV (05:21)
[2023-06-11] MEDS: Pantoprazole Sodium 40 MG/10 ML VIAL IVPUSH (05:21)
[2023-06-11 07:24] LABS: Glucose, Whole Blood 138 mg/dL (60-115)
--- NOTE | 2023-06-11 07:47 | P.PNGS_ITS ---
Subjective Subjective Date of Service: 06/11/23 Interval history: Patient awake and alert, now on 3 L nasal cannula. Reports mild abdominal pain, tolerating p.o. without nausea. Physical Exam 2 Vital Signs: Vital Signs: Last Vital Signs Temp 98.3 F 06/11/23 03:20 Pulse 80 06/11/23 03:20 Resp 18 06/11/23 03:20 BP 141/63 H 06/11/23 03:20 Pulse Ox 96 06/11/23 03:20 O2 Del Method Nasal Cannula 06/11/23 03:20 O2 Flow Rate 3 06/11/23 03:20 FiO2 30 06/10/23 01:00 BMI result Body Mass Index 39.0 Const: General: comfortable Nutritional Appearance: obese Resp: Effort & Inspection: normal respiratory effort and no audible wheezes GI: Other: Softly distended, midline incision with some bloody discharge. No guarding, rebound. Skin: Other: Warm and dry, Extrem: Other: No edema Objective Data Active Medications Albuterol Sulfate (Albuterol Sulfate 90 Mcg 8 Gm Inhaler) 2 puff INHALE Q6H PRN PRN Reason: Shortness Of Breath Chlorothiazide Sodium (Chlorothiazide Sodium 500 Mg Vial) 250 mg IVPUSH DAILY [facility]; Protocol Last Admin: 06/10/23 09:21 Dose: 250 mg Documented By: ELIJAH Clonazepam (Clonazepam 1 Mg Tablet) 1 mg PO TID [facility] Last Admin: 06/02/23 14:06 Dose: Not Given Documented By: RAVEN Non-Admin Reason: pt lethargic Heparin Sodium (Porcine) 50 (units/ Sodium Chloride 5 ml) 0 units IVFLUSH TID [facility] Last Admin: 06/10/23 20:28 Dose: 50 unit Documented By: ALYSSA Enoxaparin Sodium (Enoxaparin Sodium 40 Mg/0.4 Ml Syringe) 40 mg SUBCUT Q24H [facility] Last Admin: 06/10/23 11:31 Dose: 40 mg Documented By: CHESTER Fluticasone/Vilanterol (Fluticasone/Vilanterol 200/25 Blst.W.Dev) 1 puff INHALE RDAILY [facility] Last Admin: 06/02/23 08:43 Dose: 1 puff Documented By: DONNA Furosemide (Furosemide 20 Mg/2 Ml Vial) 20 mg IVPUSH DAILY [facility]; Protocol Last Admin: 06/10/23 09:21 Dose: 20 mg Documented By: ELIJAH Gabapentin (Gabapentin 400 Mg Capsule) 800 mg PO BID [facility] Last Admin: 06/02/23 11:03 Dose: 800 mg Documented By: RAVEN Glucose (Glucose Gel 15 Gm Gel..Gram.) 15 gm PO Q15M PRN; Protocol PRN Reason: per Hypoglycemia Standing Ord. Hydroxyzine HCl (Hydroxyzine Hcl 10 Mg Tablet) 10 mg PO Q8H PRN PRN Reason: Anxiety Dextrose (D10) 250 mls @ 750 mls/hr IV Q15M PRN; Protocol PRN Reason: per Hypoglycemia Standing Ord. Piperacillin Sod/Tazobactam (Sod 3.375 gm/ Sodium Chloride) 50 mls @ 100 mls/hr IV Q6H [facility] Last Infusion: 06/11/23 06:04 Dose: Infused Documented By: ALYSSA Caspofungin 50 mg/ Sodium (Chloride) 250 mls @ 250 mls/hr IV Q24H [facility] Last Infusion: 06/10/23 14:55 Dose: Infused Documented By: CHESTER Insulin Human Lispro (Insulin Lispro 100 Unit/Ml 3 Ml Vial) 0 unit SUBCUT QIDACHS [facility]; Protocol Last Admin: 06/11/23 07:33 Dose: Not Given Documented By: DANNY Non-Admin Reason: No Insulin Coverage Lactulose (Lactulose 20 Gm/30 Ml Solution) 10 gm PO DAILY [facility] Last Admin: 06/02/23 11:04 Dose: 10 gm Documented By: RAVEN Naloxone HCl (Naloxone Hcl 0.4 Mg/Ml Vial) 0.2 mg IVPUSH Q2M PRN PRN Reason: Excessive sedation or RR < 8 Ondansetron HCl (Ondansetron Hcl 4 Mg/2 Ml Vial) 4 mg IVPUSH Q6H PRN PRN Reason: Nausea and Vomiting Pantoprazole Sodium (Pantoprazole Sodium 40 Mg/10 Ml Vial) 40 mg IVPUSH DAILY@0630 [facility] Last Admin: 06/11/23 05:21 Dose: 40 mg Documented By: ALYSSA Polyethylene Glycol (Polyethylene Glycol 3350 17 Gm Powd.Pack) 17 gm PO DAILY PRN PRN Reason: constipation Pramipexole Dihydrochloride (Pramipexole Di-Hcl 0.25 Mg Tablet) 0.25 mg PO DAILY [facility] Last Admin: 06/07/23 07:43 Dose: Not Given Documented By: LAMAR Non-Admin Reason: NPO Senna (Sennosides 8.6 Mg Tablet) 8.6 mg PO BEDTIME [facility] Last Admin: 06/06/23 21:18 Dose: Not Given Documented By: SAMUEL Non-Admin Reason: NPO Topiramate (Topiramate 100 Mg Tablet) 100 mg PO BID [facility] Last Admin: 06/10/23 20:28 Dose: 100 mg Documented By: BELANGDebra Vortioxetine (Vortioxetine Hydrobromide 20 Mg Tablet) 20 mg PO DAILY [facility] Last Admin: 06/10/23 09:21 Dose: 20 mg Documented By: KRISAA Labs 06/10/23 06:31 06/10/23 06:31 Labs: Laboratory Results - last 24 hr 06/10/23 06/10/23 06/10/23 06:31 11:05 16:43 Smear Tech's Comments VERIFIED POC Glucose 177 H 157 H 06/10/23 06/11/23 20:17 07:17 Smear Tech's Comments POC Glucose 161 H 138 H Procedures Date of Service Date of Service: 06/11/23 Progress Note: A&P Assessment and plan (1) Bowel perforation: Status: Acute (2) Perforated ulcer: Status: Acute Plan Patient continues to make improvement, decreased 3rd spacing. Tolerating p.o. and moving bowels. Further management per hospitalist team. Time Spent With Patient Time: Total time managing care of this patient today ____ minutes. Quality Stroke Does the patient have a stroke diagnosis?: No VTE Prior VTE?: Yes VTE Risk Level:: Surgical - low VTE Device Contraindication: N/A - Device Ordered VTE Drug Contraindication: Treatment Not Tolerated
[2023-06-11 08:00] VITALS: BP 136/79; PULSE 75; RESP 24; TEMP 36.1; O2SAT 93
[2023-06-11 08:57] VITALS: BP 136/79
[2023-06-11] MEDS: Vortioxetine Hydrobromide 20 MG TABLET PO (08:57)
[2023-06-11] MEDS: Topiramate 100 MG TABLET PO (08:57)
[2023-06-11] MEDS: Chlorothiazide Sodium 500 MG VIAL 250 MG IVPUSH (08:57)
[2023-06-11] MEDS: Furosemide 20 MG/2 ML VIAL IVPUSH (08:57)
[2023-06-11] MEDS: Heparin Sodium,Porcine Flush 50 UNITS, 0.9 % Sodium Chloride Flush 5 ML IVFLUSH (08:58)
--- NOTE | 2023-06-11 10:31 | MHC.SL.SWA ---
Speech Pathologist Impression: Risk of aspiration, mild oral phase dysphagia Risk of Aspiration Due to: Medically Fragile Hx of Recent Extubation Dysphasia Diet Status: Recommend patient continue with GROUND/MECH ALTERED solids (NDD2), THIN liquids, and pills WHOLE w/ PUREE. Patient may need assistance with tray set up. Encourage self-feed. Liquid Consistency and Strategies for Safe Swallow: Liquid Intake Recommendation: Thin Liquid Intake Strategies: Small Sips Solid Food Consistency: Dietary Recommendations: Grnd/Mech Altered (NDD2) Oral Medication Intake: Whole with Puree Please contact the pharmacy regarding appropriate crushable or liquid drug formulations that are available whenever modified delivery is recommended. Compensatory Strategies and Precautions to be Taken for Safe Swallow: Sitting Upright (90 deg) Small Bites and Sips Alternate Liquids/Solids Rate of Ingestion Change Avoid Specific Foods Supervision While Eating and Drinking for Safe Swallow: Total Supervision (1:1) Foods to Avoid: Mixed consistencies. Swallowing Recommended Treatments: Compens. Strategy Educat. Recommendation for Speech: Inpatient Speech Therapy Date Range for Service Req: Timeline to reassess: PRN Senior Peoplesoft Developer Clinican/Clinical Fellow: Yes: Dominique Owens Supervisory Statement: I have reviewed and agree with the student/clinical fellow's documentation: Yes Speech Language Pathologist: Lucía Bravo M.A., CCC-VAMP CREASER
--- NOTE | 2023-06-11 11:25 | MHC.CLN ---
F/U PO INTAKE 25-50% DIET RX: GRD M/S-APPROPRIATE PT PREFERS TO NOT EAT MEAT OF ANY KIND PT REPORTS SHE IS NOT VEGETARIAN JUST DOES NOT LIKE MEAT PT USES ENSURE MAX MAIN PROTEIN SOURCE; NOTED HX GASTRIC BYPASS ENSURE MAX TID PROVIDES 450KCALS, 90G PROTEIN CONTINUE TO MONITOR PO INTAKE AND ENCOURAGE SUPPLEMENTS
[2023-06-11 11:42] LABS: Glucose, Whole Blood 167 mg/dL (60-115)
[2023-06-11 11:58] VITALS: BP 147/65; PULSE 76; RESP 20; TEMP 36.2; O2SAT 94
--- NOTE | 2023-06-11 12:21 | MHC.CM.PN ---
Patient has been medically cleared for dc to home today, with services. [facility] has been notified of today's dc. IMM addressed with Patient at bedside; original was given to her and a copy placed on the chart. will transport.
--- NOTE | 2023-06-11 12:25 | PM.DS ---
DS: Providers Provider Date of Service: 06/11/23 Date of admission: 05/31/23 08:49 Primary care physician: Kat Nevarez MD Consults: 06/02/23 17:08 Consult to General Surgery Routine Consulting Provider: [facility] Reason for consultation: abdominal distension and pain, r\o perforation 06/02/23 17:10 Consult to Nephrology Routine Consulting Provider: [facility] Reason for consultation: Acute kidney injury DS: Diagnosis Discharge Diagnosis (1) Bowel perforation: Status: Acute (2) Perforated ulcer: Status: Acute (3) Physical deconditioning: Status: Acute (4) Thrombocytopenia: Status: Acute (5) Septic shock: Status: Acute (6) Free intraperitoneal air: Status: Acute (7) Acute hypoxic respiratory failure: Status: Acute (8) Shock: Status: Acute (9) Acute kidney injury: Status: Acute (10) Acute encephalopathy: Status: Acute (11) Hypotension: Status: Acute (12) Hypoxia: Status: Acute DS: Summary Hospital Course Hospital Course: Medical consult note post Op A 62 years old lady with PMH of asthma, DMII, neuropathy among others who presented for elective L3-4 Discectomy by neurosurgery developed hypoxia this morning. The patient reports significant pain in her back. feels her breathing is altered but reported also having difficulties breathing for a long time now. denies any chest pain, palpitations, dyspnea on rest, sweating, leg pain or swelling. Noted this morning to drop her O2 requring 2 L of O2 to keep it in 90s. She had the surgery [address] abdomen showing evidence of atelactasis and air in abdomen. D-Dimer elevated at 2000. Hospitalist team asked to evaluate. Hospital course # Perforated gastric ulcer s\p lapratomy CT scan showed pneumoperitonium that was evaluated by surgery team who did an urgent lapratomy finding perforated ulcer that was controlled. advance diet as tolerated to regular. Placed on IV Pantoprazole and will be discharged on PO Omeprazole. To follow up with surgery as outpatient. # Septic shock secondary to intraabdominal infx resolved as the patient was admitted to ICU post lapratomy. treated with Zosyn and Caspofungin as blood cultures remained negative. To be discharged on Augmentin. # Acute hypoxic resp failure secondary to septic shock and aspiration PNA Admitted to ICU post op as CT showed bilateral effusion and infiltrates. extubated and weaned off Oxygen. was able to participate with PT who recommended STR but she prefers to go home with [facility] and home PT. To finish Augmentin therapy at home. # JOSE MANUEL and hypokalemia. Developed as a result of septic shock and perforated viscous. resolved with usage of IV fluids. Potassium replacement given. patient refused repeat labs on day of discharge. Discharge Plan Continue antibiotic as prescribed Zofran for nausea Omeprazole for stomach protection Follow with dr Hernandez as outpatient in 2 weeks Time Attestation Discharge Coordination Time (in mins): 34 Quality: Safe Use of Opioids Does Pt have an Active Cancer Diagnosis on the Problem List?: No Quality: Stroke Does the patient have a stroke diagnosis?: No Physical Exam Vital Signs: Vital Signs: Last Vital Signs Temp 97.2 F 06/11/23 11:58 Pulse 76 06/11/23 11:58 Resp 20 06/11/23 11:58 BP 147/65 H 06/11/23 11:58 Pulse Ox 94 06/11/23 11:58 O2 Del Method Room Air 06/11/23 11:58 O2 Flow Rate 3 06/11/23 08:00 FiO2 30 06/10/23 01:00 BMI result Body Mass Index 39.0 Const: Other: Constitutional : Awake, frail looking, not in distress Neck : Normal inspection, Supple Cardiovascular : RRR, no JVP, trace lower extremity edema Respiratory : good bilateral air entry, no crackles, no wheezes, Gastrointestinal: soft, lax, Normal bowel sounds, Non tender, midline surgical wound covered with dressing. Skin : Warm, Dry Neurological : Alert & oriented x3, No focal deficit DS: Data Data Completed and Pending Labs on day of discharge: Laboratory Results - last 24 hr 06/10/23 06/10/23 06/11/23 16:43 20:17 07:17 POC Glucose 157 H 161 H 138 H 06/11/23 11:34 POC Glucose [address] scan - abdomen: Radiologist's impression: ITS Impressions Guidance Fluoroscopy 05/31/23 15:10 IMPRESSION: Fluoroscopy provided for intraoperative guidance for L3-L4 interbody fusion. Please refer to operative report by the supervising physician for more detailed evaluation. Chest X-Ray 06/02/23 09:30 IMPRESSION: Low lung volumes. Increased central bronchovascular markings and increased attenuation at the left lung base. It is difficult to exclude airways disease/pneumonia or mild pulmonary edema. Abdomen/Pelvis CT 06/02/23 10:28 IMPRESSION: Small ascites in the abdomen and pelvis. Moderate pneumoperitoneum. Evaluation of bowel perforation is limited by the lack of administration of enteric contrast to assess for contrast extravasation. Bilateral lower lobe consolidation. Atelectasis versus pneumonia including aspiration. Venous Duplex 06/02/23 18:30 IMPRESSION: No DVT in the bilateral lower extremities with the caveat that the left peroneal veins were not well seen. If the patient's symptoms persist, followup ultrasound in 5 days 7 days might be of value to exclude proximal propagation from a non-visualized calf vein. Chest X-Ray 06/02/23 19:45 IMPRESSION: Well-positioned NG tube. Pneumoperitoneum Chest X-Ray 06/02/23 21:30 IMPRESSION: 1. Endotracheal tube terminates at 3.5 cm above the pooja. 2. Left IJ CVC tip projects at the level of the lower SVC. 3. Increased focal airspace opacities in the retrocardiac left lower lobe, nonspecific to represent atelectasis, aspiration or infiltrates. Continued follow-up recommended. 4. Redemonstration of pneumoperitoneum. Abdomen/Pelvis CT 06/02/23 23:50 IMPRESSION: 1. Free intraperitoneal air mildly increased compared with previous. Increasing mildly dense free fluid within the abdomen greater on the right. Gastrointestinal perforation suspected. The site of perforation is undetermined. 2. No bowel obstruction. 3. Bilateral lower lung field consolidation greater on the left with small bilateral pleural effusions. Suspect a combination of atelectasis and pneumonia. Fleischner guidelines were followed. Abdomen/Pelvis CT 06/07/23 10:02 IMPRESSION: Interval resolution of previously noted free intraperitoneal air. Small abdominopelvic ascites. Mild mesenteric fat stranding. No definite peripherally enhancing collections to suggest evidence of abscess. No evidence of bowel obstruction. Diffuse anasarca. Small bilateral pleural effusions, increased on the left compared to prior exam bibasilar consolidation/atelectasis. Mild cortical thinning along the upper pole of the right kidney. Subtle hypoattenuation along the posterior upper pole of the right kidney which is incompletely evaluated may be related to cortical scarring. This can be correlated with retroperitoneal ultrasound as clinically indicated. Fleischner guidelines were followed. Chest X-Ray 06/07/23 10:23 IMPRESSION: 1. Increased bilateral, predominantly bibasilar haxz-[id number]-[id number]-right opacities. Small left pleural effusion and trace right effusion. Diffusely prominent interstitial opacities. Differential considerations include infectious/inflammatory process, atelectasis and/or edema. 2. Previously identified pneumoperitoneum is less conspicuous. This study was presented today June 07, 2023 for interpretation. Stat results provided at this time as requested by referring provider. Chest CTA 06/08/23 09:38 IMPRESSION: No evidence for acute PE. Bilateral pleural effusions and infiltrates. VTE: negative. Discharge Plan Discharge Anticipated Discharge Date/Time: 06/11/23 11:03 Patient Disposition: Home Health Service Discharge Diagnosis: Perforate ulcer Respiratory failure Kidney injury Referrals: [facility] [Outside] - 1 Week Kat Nevarez MD [Primary Care Provider] - 1 Week Danny Hernandez MD [Physician] - 1 Week Discharge Medications: New omeprazole 20 mg capsule,delayed release(DR/EC) 20 mg PO DAILY Qty: 30 0RF ondansetron 4 mg tablet,disintegrating 4 mg PO Q8H PRN (Reason: nausea and vomiting) Qty: 20 0RF amoxicillin-pot clavulanate 875-125 mg tablet 1 tab PO BID Qty: 14 0RF (DME) Ultra-Light Rollator Misc See Rx Instructions .Route Qty: 1 0RF Rx Instructions: As directed Continued furosemide 40 mg tablet 20 mg PO DAILY clonazepam 1 mg tablet 1 mg PO TID potassium chloride 10 mEq tablet extended release 10 meq PO DAILY aspirin 81 mg tablet,delayed release (DR/EC) 81 mg PO DAILY bupropion HCl 100 mg tablet sustained-release 12 hr 100 mg PO QAM qpkbdfwjcd-ncjqdhkzhpzbh-dmnh 50-325-40 mg tablet 1 tab PO Q6H PRN (Reason: pain) gabapentin 800 mg tablet 800 mg PO BID trazodone 100 mg tablet 300 mg PO BEDTIME pramipexole 0.25 mg tablet 0.25 mg PO DAILY lorazepam 1 mg tablet 1 mg PO TID albuterol sulfate [Ventolin HFA] 90 mcg/actuation Hfa Aerosol Inhaler 2 puff INHALATION Q6H PRN (Reason: Shortness Of Breath) hydroxyzine HCl 10 mg tablet 10 mg PO TID PRN (Reason: Anxiety) topiramate 100 mg tablet 100 mg PO BID metoprolol tartrate 25 mg Tablet 25 mg PO DAILY pregabalin 150 mg capsule 150 mg PO BID budesonide-formoterol [Symbicort] 160-4.5 mcg/actuation HFA aerosol inhaler 2 puff inhalation BID Trintellix 20 mg tablet 20 mg PO DAILY melatonin-lemon balm leaf extr 10-1 mg tablet 1 tab PO BEDTIME Ozempic 0.25 mg or 0.5 mg (2 mg/3 mL) Pen Injector 0.5 mg SUBCUT QWEEK insulin aspart U-100 100 unit/mL (3 mL) Insulin Pen 4 - 30 unit SUBCUT TID sennosides [senna] 8.6 mg tablet 8.6 mg PO BEDTIME polyethylene glycol 3350 17 gram powder in packet 17 g PO DAILY PRN (Reason: constipation) lactulose 10 gram/15 mL solution 15 ml PO QAM pantoprazole 40 mg tablet,delayed release (DR/EC) 40 mg PO DAILY Discharge Orders: Discharge Order (Routine); Ordered 06/11/23 Ordered By: Rachel Figueroa Diet: Advance to usual diet Activity on Discharge: As tolerated Stand Alone Forms: Patient Portal Discharge page Print Language: Spanish Care Plan Goals: Read below Health Concerns: Read below Plan of Treatment: Read below Assessment: You were admitted to the hospital for neurosurgical surgery complicated by perforate ulcer and respiratory failure requiring ICU admission and surgical intervention. You also developed sepsis and kidney injury which both resolved with IV fluids and antibiotics. Continue antibiotic as prescribed Zofran for nausea Omeprazole for stomach protection Follow with dr Hernandez as outpatient in 2 weeks Discharge Date/Time: 06/11/23 17:20
--- NOTE | 2023-06-11 13:02 | HO.REMOVAL ---
Removal of PICC/Midline Removal of PICC/Midline: Removal of PICC: 1. Date: 06/11/2023 2. Reason removed: order, no longer needed 3. Inserted length: 39 cm 4. Removed length: 39 cm 5. PICC line removed slowly. Pressure held for bleeding for 15 min. Hemostasis obtained. No edema or bleeding at the site. A dressing and 2 4x4 and tegaderm dressing was placed over the site upon achieving homeostasis. Assessed after 5 minutes and the dressing was D&I. Asked primary RN Nilda to assess in 5 minutes and she stated she would.
[2023-06-11 15:47] VITALS: BP 136/64; PULSE 78; RESP 17; TEMP 36; O2SAT 93
--- NOTE | 2023-07-02 10:47 | P.CDIM_ITS ---
PROVIDER RESPONSE TEXT: To clarify, the appropriate diagnosis supported by the clinical indicators: Localized infection (peritonitis) due to/related to perforated anastomotic ulcer from previous Gastri c Surgery: peritonitis due to perforated ulcer at Pamela-en Y anastomosis from prior gastric bypass surgery. Not related to pr evious spinal surgery. QUERY TEXT: PHYSICIAN'S DOCUMENTATION REQUEST Date of Query: 06/24/2023 09:05 AM EDT Patient Name: Claudette Stapleton Admit Date: 05/31/2023 Dear Danny Hernandez, RETROSPECTIVE QUERY A review of the medical record indicates additional documentation may be needed. Please review below and update the documentation accordingly. Clinical Indicators: Surgery consult note dated 06/01 abdominal pain, distention, lethargic, ill appearing, tachypneic, S/ P Discectomy on 05/31/23 PMH: Pamela-en-Y gastric surgery ICU progress note dated 06/01 - Septic shock in the setting of suspected bowel perforation. Surgery returned from OR reports that the pt must have had a gastric bypass at some point for he foun d the source of the perforation was at the anastomotic site with lots of peritoneal fluid. Op Note dated 06/02 - Perforated ulcer at Pamela-en-Y anastomosis. 62 year old female presenting with in creased abdominal pain, respiratory distress and sepsis found by CT to have intraperitoneal air. Operative findings of Exploratory laparotomy: Perforation in the left upper quad and an apparent Pamela Y limb anastomosis possibly a perforated ulcer with copious amount of leaking fluid. Plan: Discussed with Dr Cat who feels this is probably results of the retroperitoneal approach. WBC 16.1 LA 3.9 TEMP 101.1/100.6 HR 102 Zosyn, IVF, pressor support and other standard ICU care. Please clarify the following: Localized infection (peritonitis) due to/related to perforated anastomotic ulcer from previous Gastri c Surgery possible, suspected, probable Peritonitis Generalized (acute) , Septic, spontaneous bacterial, pelvis or other Localized infection (peritonitis) due to spinal surgery possible, suspected, probable, not related etc. Other (explain) Clinically unable to determine (explain) Thank you, Nery Adam, CCS, CDIS Use of terms such as suspected, likely, concern for, or probable (associated with a specific diagnosi s that is being evaluated, monitored, or treated as if it exists) are acceptable and can be coded in the inpatient se tting, when documented at the time of discharge. Please use your independent medical judgment in providing your response. THIS QUERY IS PART OF THE PERMANENT MEDICAL RECORD
== END 2023-06-11 17:20 | disposition home health service (06) | DRG 459 ==
LOC: HO.SSSA 12:08 → HO.S3 14:52 → HO.IMC 06-02 17:18 → HO.ICU 06-02 19:47 → HO.IMC 06-10 01:26
PROVIDERS: Internal Medicine Critical Care Medicine; Nurse Practitioner; Nurse Practitioner Family; Physician Assistant; Physician Assistant Medical; Surgery; Admitting Provider Neurological Surgery; PCP Internal Medicine; Visit Provider Student in an Organized Health Care Education/Training Program
PROC: 0SG00A0 Fusion of Lumbar Vertebral Joint with Interbody Fusion Device, Anterior Approach, Anterior Column, Open Approach (ICD-10-PCS; principal; 2023-05-31 11:20)
PROC: 0DQA0ZZ Repair Jejunum, Open Approach (ICD-10-PCS; CPT 49000; principal; 2023-06-03 03:00)
DX: M43.16 Spondylolisthesis, lumbar region (principal); A41.9 Sepsis, unspecified organism; G92.8 Other toxic encephalopathy; J96.01 Acute respiratory failure with hypoxia; N17.0 Acute kidney failure with tubular necrosis; K28.5 Chronic or unspecified gastrojejunal ulcer with perforation; R65.21 Severe sepsis with septic shock; K65.8 Other peritonitis; J98.11 Atelectasis; K95.89 Other complications of other bariatric procedure; E87.20 Acidosis, unspecified; E87.0 Hyperosmolality and hypernatremia; E88.810 Metabolic syndrome; D69.59 Other secondary thrombocytopenia; M48.062 Spinal stenosis, lumbar region with neurogenic claudication; E11.42 Type 2 diabetes mellitus with diabetic polyneuropathy; E66.01 Morbid (severe) obesity due to excess calories; Z68.39 Body mass index [BMI] 39.0-39.9, adult; G47.33 Obstructive sleep apnea (adult) (pediatric); Z86.711 Personal history of pulmonary embolism; Z98.84 Bariatric surgery status; Z79.82 Long term (current) use of aspirin; Z79.899 Other long term (current) drug therapy
CPT/HCPCS: 36415; 36573; 36600; 71045; 71275; 74176; 74177; 80048; 80053; 81001; 82040; 82565; 82803; 82947; 83036; 83605; 83735; 83880; 84100; 84484; 85007; 85025; 85027; 85379; 85652; 86140; 86850; 86900; 86901; 87040; 87070; 87073; 87076; 87086; 87185; 87205; 87640; 87641; 92526; 92610; 93005; 93970; 94002; 94003; 94640; 94660; 94799; 97162; C1713; C1751; C1758; C1889; C9113; C9290; J0131; J0637; J0665; J1100; J1170; J1205; J1450; J1642; J1644; J1650; J1885; J1940; J1956; J2250; J2310; J2405; J2543; J2704; J2720; J3010; J3370; J3371; J3475; J3480; J7120; L8699; P9047; Q9967

== ENCOUNTER 2023-05-31 08:49 | Outpatient (BNV) | payer OTHER, SELFPAY | END 2023-06-02 13:15 | PROVIDERS: Admitting Provider Neurological Surgery; PCP Internal Medicine; Visit Provider Internal Medicine Cardiovascular Disease | DX: R94.31 Abnormal electrocardiogram [ECG] [EKG] (principal) | CPT/HCPCS: 93010 ==

== ENCOUNTER 2023-05-31 08:49 | Outpatient (BNV) | payer OTHER, SELFPAY | END 2023-06-07 17:52 | PROVIDERS: Admitting Provider Neurological Surgery; PCP Internal Medicine; Visit Provider Internal Medicine | DX: R00.0 Tachycardia, unspecified (principal) | CPT/HCPCS: 93010 ==

== ENCOUNTER 2023-05-31 08:49 | Outpatient (BNV) | payer OTHER, SELFPAY | END 2023-06-08 01:00 | PROVIDERS: Admitting Provider Neurological Surgery; PCP Internal Medicine; Visit Provider Internal Medicine | DX: R94.31 Abnormal electrocardiogram [ECG] [EKG] (principal) | CPT/HCPCS: 93010 ==

== ENCOUNTER → 2023-05-31 08:49 | Outpatient (BNV) | payer OTHER, SELFPAY | PROVIDERS: Admitting Provider Neurological Surgery; PCP Internal Medicine; Visit Provider Internal Medicine Critical Care Medicine | DX: G93.40 Encephalopathy, unspecified (principal); N17.9 Acute kidney failure, unspecified; R57.9 Shock, unspecified; J96.01 Acute respiratory failure with hypoxia | CPT/HCPCS: 36556; 99291; 99292; 99499 ==

== ENCOUNTER → 2023-05-31 08:49 | Outpatient (BNV) | payer OTHER, SELFPAY | PROVIDERS: Admitting Provider Neurological Surgery; PCP Internal Medicine; Visit Provider Internal Medicine Hypertension Specialist | DX: N17.9 Acute kidney failure, unspecified (principal); R53.81 Other malaise; E87.6 Hypokalemia | CPT/HCPCS: 99223; 99232 ==

== ENCOUNTER → 2023-05-31 08:49 | Outpatient (BNV) | payer OTHER, SELFPAY | PROVIDERS: Admitting Provider Neurological Surgery; PCP Internal Medicine; Visit Provider Student in an Organized Health Care Education/Training Program | DX: A41.9 Sepsis, unspecified organism (principal); R65.21 Severe sepsis with septic shock; K27.5 Chronic or unspecified peptic ulcer, site unspecified, with perforation; J96.01 Acute respiratory failure with hypoxia; N17.9 Acute kidney failure, unspecified; R53.81 Other malaise; D69.6 Thrombocytopenia, unspecified; K66.8 Other specified disorders of peritoneum; G93.40 Encephalopathy, unspecified; I95.9 Hypotension, unspecified | CPT/HCPCS: 99222; 99233; 99239 ==

== ENCOUNTER → 2023-05-31 08:49 | Outpatient (BNV) | payer OTHER, SELFPAY | PROVIDERS: Admitting Provider Neurological Surgery; PCP Internal Medicine; Visit Provider Neurological Surgery | DX: Z48.89 Encounter for other specified surgical aftercare (principal) | CPT/HCPCS: 20930; 22558; 22612; 22840; 22853; 99024; G0180 ==

== ENCOUNTER → 2023-05-31 08:49 | Outpatient (BNV) | payer OTHER, SELFPAY | PROVIDERS: Admitting Provider Neurological Surgery; PCP Internal Medicine; Visit Provider Surgery | DX: K27.5 Chronic or unspecified peptic ulcer, site unspecified, with perforation (principal) | CPT/HCPCS: 43840; 99024; 99222; 99499 ==

== ENCOUNTER 2023-06-24 10:36 | Outpatient (AMB) | payer OTHER, SELFPAY ==
--- NOTE | 2023-06-24 10:43 | HO.SPINEOV ---
Intake Visit Reasons: 1st post op Intake Note: Ms. Stapleton is here today for 1st post-op appointment. Cell Lead Required: No Allergies cephalexin [From Keflex] Allergy (Intermediate, Verified 06/24/23 10:55) Swelling glipizide Allergy (Intermediate, Verified 06/24/23 10:55) Rash metformin Allergy (Intermediate, Verified 06/24/23 10:55) Itching morphine Allergy (Intermediate, Verified 06/24/23 10:55) Nausea and Vomiting/ineffective ropinirole [From Requip] Allergy (Intermediate, Verified 06/24/23 10:55) Nausea and Vomiting doxycycline Allergy (Verified 06/24/23 10:55) Hives CLARITZA Inhibitors Adverse Reaction (Intermediate, Verified 06/24/23 10:55) Cough Assessment & Plan Assessment & Plan (1) S/P lumbar fusion: Code(s): Z98.1 - Arthrodesis status Category: Surgical Plan Procedure: L3-4 OLIF Adelina comes in today for her 1st postoperative visit. To recap she had a very complicated postoperative course. After surgery, when admitted to the hospital for short-term recovery, she was found to have a perforated gastric ulcer as a likely secondary result of her previous gastric surgery. This was repaired by our general surgery team. She is admitted to the ICU for several days, and thankfully recovered well. Today she reports she is continued to heal well since her surgery. She is ambulating around her home well and completing stairs without issue. She is very little back pain and no shooting pains down her legs. We are very glad to see that she is doing so well. No new neurological deficits. Patient is able to ambulate well with the assistance of a cane, rises from a seated position without difficulty. Harshal-lateral and posterior incision sites are closed, well healing, with no signs of drainage. Of note, her exploratory laparotomy incision still has overlying enio. I reached out to the general surgery team and informed them that the patient is doing very well. She was provided with the phone number to schedule follow-up appointment to have her enio removed. We will follow-up with the patient in 6 weeks for their 2nd postoperative visit. At that time we will get x-rays to review with the patient. Pravin Cat MD,PhD [facility] Coding Level of Care Code Global (12130) Diagnoses S/P lumbar fusion Z98.1
== END 2023-06-24 11:27 | disposition home or self-care (01) ==
PROVIDERS: PCP Internal Medicine; Visit Provider Physician Assistant
DX: Z98.1 Arthrodesis status (principal)
CPT/HCPCS: 99024

== ENCOUNTER → 2023-06-24 10:36 | Outpatient (BNVA) | payer OTHER, SELFPAY | PROVIDERS: PCP Internal Medicine; Visit Provider Physician Assistant | DX: Z48.89 Encounter for other specified surgical aftercare (principal); Z98.1 Arthrodesis status | CPT/HCPCS: 99212 ==

== ENCOUNTER 2023-06-25 11:16 | Outpatient (AMB) | payer OTHER, SELFPAY ==
--- NOTE | 2023-06-25 11:17 | MHC.OFFVIS ---
Vital Signs 06/25/23 11:24 BP 131/64 Blood Pressure Location Rt brachial Position Sitting Pulse 80 Intake Visit Reasons: stitches removal Intake Note: This patient presents for a follow-up assessment for staple removal. Patient c/o; reports pain. Acoustical Engineer Required: No Accompanied by: Other Relationship Allergies cephalexin [From Keflex] Allergy (Intermediate, Verified 06/25/23 11:18) Swelling glipizide Allergy (Intermediate, Verified 06/25/23 11:18) Rash metformin Allergy (Intermediate, Verified 06/25/23 11:18) Itching morphine Allergy (Intermediate, Verified 06/25/23 11:18) Nausea and Vomiting/ineffective ropinirole [From Requip] Allergy (Intermediate, Verified 06/25/23 11:18) Nausea and Vomiting doxycycline Allergy (Verified 06/25/23 11:18) Hives CLARITZA Inhibitors Adverse Reaction (Intermediate, Verified 06/25/23 11:18) Cough Medication List - Last Reconciled 06/25/23 by Danny Hernandez MD albuterol sulfate 90 mcg/actuation (Ventolin HFA) 2 puffs inhalation Q6H PRN amoxicillin-pot clavulanate 875-125 mg 1 tab PO BID aspirin 81 mg PO DAILY budesonide-formoterol 160-4.5 mcg/actuation (Symbicort) 2 puffs inhalation BID bupropion HCl SR 100 mg PO QAM bwdqgdmybs-jtqxtzsptwhhk-wzla 50-325-40 mg 1 tab PO Q6H PRN clonazepam 1 mg PO TID furosemide 20 mg PO DAILY gabapentin 800 mg PO BID hydroxyzine HCl 10 mg PO TID PRN insulin aspart U-100 4 - 30 units subcut TID lactulose 15 mL PO QAM lorazepam 1 mg PO TID melatonin-lemon balm leaf extr 10-1 mg 1 tab PO BEDTIME metoprolol tartrate 25 mg PO DAILY omeprazole 20 mg PO DAILY ondansetron 4 mg PO Q8H PRN pantoprazole 40 mg PO DAILY polyethylene glycol 3350 17 grams PO DAILY PRN potassium chloride ER 10 mEq PO DAILY pramipexole 0.25 mg PO DAILY pregabalin 150 mg PO BID semaglutide (Ozempic) 0.5 mg subcut QWEEK sennosides (senna) 8.6 mg PO BEDTIME topiramate 100 mg PO BID trazodone 300 mg PO BEDTIME vortioxetine (Trintellix) 20 mg PO DAILY walker (Ultra-Light Rollator mis) As directed HPI Comments Details: 62-year-old female status post exploratory laparotomy with repair of ulceration at Pamela-en-Y jejunojejunostomy following gastric bypass surgery. This occurred in the postoperative. Following lumbar spine surgery. Patient reports some incisional pain but denies nausea, vomiting or problems with her bowels. She continues with the omeprazole for ulcer prophylaxis. She was seen by Neurosurgery earlier in the week and presents today for staple removal. [facility] Medical History Physical deconditioning Spondylolisthesis, lumbar region Arthritis GERD (gastroesophageal reflux disease) Depression Polysubstance abuse Osteoarthritis Sleep apnea Elevated cholesterol Bipolar 1 disorder RLS (restless legs syndrome) Asthma HTN (hypertension) Pulmonary embolism Peripheral neuropathy Diabetes Surgical History H/O colonoscopy History of total right knee replacement Hx of tonsillectomy Hx of tubal ligation Hx of hysterectomy History of sleeve gastrectomy Social History Household Members: Spouse Housing: House Are you a primary career coach to a significant other at home: No Do you presently have visiting nurse or other home services: No Patient Tobacco Use Status: Never used Tobacco service: No Physical Exam Vital Signs: Last Vital Signs Pulse 80 06/25/23 11:24 BP 131/64 06/25/23 11:24 Const General: no acute distress Limitations: ambulation with cane and wheelchair Resp Effort & Inspection: normal respiratory effort GI Other: Midline incision is clean and dry, intact, with intact lola. No hernias palpable with Valsalva maneuvers. Abdomen is otherwise soft and nondistended. Skin Other: Warm, dry, no rash Extrem Other: No edema Assessment & Plan Assessment & Plan (1) Bowel perforation: Code(s): K63.1 - Perforation of intestine (nontraumatic) Category: Medical Plan 62-year-old female patient developed a perforation at a Pamela-en-Y anastomosis suggestive of a marginal ulcer. She underwent repair and washout and returns today for wound check. Her abdomen is soft and nondistended without evidence of infection or hernia formation. Lola were removed and wounds found to be well healed. She should return in 1 month for follow-up examination. She should continue take omeprazole for ulcer prophylaxis. Coding Level of Care Code Global (05265) Diagnoses Bowel perforation K63.1
[2023-06-25 11:24] VITALS: BP 131/64; PULSE 80
== END 2023-06-25 11:43 | disposition home or self-care (01) ==
PROVIDERS: PCP Internal Medicine; Visit Provider Surgery
DX: K63.1 Perforation of intestine (nontraumatic) (principal)
CPT/HCPCS: 99024

== ENCOUNTER → 2023-06-25 11:16 | Outpatient (BNVA) | payer OTHER, SELFPAY | PROVIDERS: PCP Internal Medicine; Visit Provider Surgery | DX: K63.1 Perforation of intestine (nontraumatic) (principal) | CPT/HCPCS: 99212 ==

== ENCOUNTER 2023-07-19 13:37 | Emergency (ER) | payer OTHER, SELFPAY ==
[2023-07-19 13:43] VITALS: BP 117/60
[2023-07-19 14:38] VITALS: BP 105/63; PULSE 79; RESP 20; TEMP 36.4; O2SAT 96; BMI 30.9
--- NOTE | 2023-07-19 14:41 | ED_ITS ---
HPI - General Adult General Chief complaint: Skin/Abscess/Foreign Body Stated complaint: BLEEDING FROM BELLY BUTTOB,HERNIA SURG LAST MONTH Time Seen by Provider: 07/19/23 16:42 History of Present Illness HPI narrative: Patient is status post laparotomy for perforated ulcer at round and Pamela-en-Y anastomosis on 06/03/2023 with good healing comes here as she noticed some serous discharge and the side of the surgery no significant abdominal pain patient takes furosemide 20 mg daily for leg edema noted to have potassium 2.6 with history of same in the past Related Data Home Medications ?Medication ?Instructions ?Recorded ?Confirmed albuterol sulfate 90 mcg/actuation 2 puff inhalation Q6H PRN 04/28/23 06/25/23 aerosol inhaler (Ventolin HFA) Shortness Of Breath aspirin 81 mg tablet,delayed 81 mg PO DAILY 04/28/23 06/25/23 release budesonide-formoterol HFA 160 2 puff inhalation BID 04/28/23 06/25/23 mcg-4.5 mcg/actuation aerosol inhaler (Symbicort) bupropion HCl 100 mg tablet,12 hr 100 mg PO QAM 04/28/23 06/25/23 sustained-release bekcfokboc-uoxnmxpslnnyf-dtrgysaw 1 tab PO Q6H PRN pain 04/28/23 06/25/23 50 mg-325 mg-40 mg tablet clonazepam 1 mg tablet 1 mg PO TID 04/28/23 06/25/23 furosemide 40 mg tablet 20 mg PO DAILY 04/28/23 06/25/23 gabapentin 800 mg tablet 800 mg PO BID 04/28/23 06/25/23 hydroxyzine HCl 10 mg tablet 10 mg PO TID PRN Anxiety 04/28/23 06/25/23 insulin aspart U-100 100 unit/mL 4 - 30 unit subcut TID 04/28/23 06/25/23 (3 mL) subcutaneous pen lorazepam 1 mg tablet 1 mg PO TID 04/28/23 06/25/23 melatonin 10 mg-lemon balm leaf 1 tab PO BEDTIME 04/28/23 06/25/23 extract 1 mg tablet metoprolol tartrate 25 mg tablet 25 mg PO DAILY 04/28/23 06/25/23 potassium chloride 10 mEq 10 meq PO DAILY 04/28/23 06/25/23 tablet,extended release pramipexole 0.25 mg tablet 0.25 mg PO DAILY 04/28/23 06/25/23 pregabalin 150 mg capsule 150 mg PO BID 04/28/23 06/25/23 semaglutide 0.25 mg or 0.5 mg (2 0.5 mg subcut QWEEK 04/28/23 06/25/23 mg/3 mL) subcutaneous pen injector (Ozempic) topiramate 100 mg tablet 100 mg PO BID 04/28/23 06/25/23 trazodone 100 mg tablet 300 mg PO BEDTIME 04/28/23 06/25/23 vortioxetine 20 mg tablet 20 mg PO DAILY 04/28/23 06/25/23 (Trintellix) lactulose 10 gram/15 mL oral 15 ml PO QAM 04/29/23 06/25/23 solution pantoprazole 40 mg tablet,delayed 40 mg PO DAILY 04/29/23 06/25/23 release polyethylene glycol 3350 17 gram 17 g PO DAILY PRN constipation 04/29/23 06/25/23 oral powder packet sennosides 8.6 mg tablet (senna) 8.6 mg PO BEDTIME 04/29/23 06/25/23 Previous Rx's ?Medication ?Instructions ?Recorded amoxicillin 875 mg-potassium 1 tab PO BID #14 tabs 06/11/23 clavulanate 125 mg tablet omeprazole 20 mg capsule,delayed 20 mg PO DAILY #30 caps 06/11/23 release ondansetron 4 mg disintegrating 4 mg PO Q8H PRN nausea and 06/11/23 tablet vomiting #20 tabs walker (Ultra-Light Rollator [facility]) #1 ea 06/11/23 Allergies Allergy/AdvReac Type Severity Reaction Status Date / Time cephalexin [From Keflex] Allergy Intermediate Swelling Verified 07/19/23 14:40 glipizide Allergy Intermediate Rash Verified 07/19/23 14:40 metformin Allergy Intermediate Itching Verified 07/19/23 14:40 morphine Allergy Intermediate Nausea and Verified 07/19/23 14:40 Vomiting/ineffective ropinirole [From Requip] Allergy Intermediate Nausea and Verified 07/19/23 14:40 Vomiting doxycycline Allergy Hives Verified 07/19/23 14:40 CLARITZA Inhibitors AdvReac Intermediate Cough Verified 07/19/23 14:40 [facility] Past Medical History Medical History Physical deconditioning Spondylolisthesis, lumbar region Arthritis GERD (gastroesophageal reflux disease) Depression Polysubstance abuse Osteoarthritis Sleep apnea Elevated cholesterol Bipolar 1 disorder RLS (restless legs syndrome) Asthma HTN (hypertension) Pulmonary embolism Peripheral neuropathy Diabetes Surgical History H/O colonoscopy History of total right knee replacement Hx of tonsillectomy Hx of tubal ligation Hx of hysterectomy History of sleeve gastrectomy Social History Social History Household Members: Spouse Housing: House Are you a primary administrator health care facility to a significant other at home: No Do you presently have visiting nurse or other home services: No Patient Tobacco Use Status: Never used Tobacco service: No Physical Exam ED Vital Signs: Vital Signs - 24 hr 07/19/23 14:38 07/19/23 16:53 Temperature 97.6 F 98.4 F Pulse Rate 79 75 Respiratory Rate 20 18 Blood Pressure 105/63 118/63 Pulse Oximetry 96 97 Oxygen Delivery Method Room Air Room Air BMI result Body Mass Index 30.9 Course Course Course Narrative: RME performed by Deandra Murdock PA-C. Patient is a 62 year old assigned female at presenting to the emergency department with oozing from her belly button. Patient states she had a surgery here but is unsure what it was for or why. Patient states that her belly button has been oozing things. Detailed physical exam and review of systems are deferred to the home therapy clinician. Labs ordered. Patient placed back in the waiting room pending room availability and results. Medications Administered Discontinued Medications Generic Name Dose Route Start Last Admin Trade Name Freq PRN Reason Stop Dose Admin Potassium Chloride 10 meq in 100 mls @ 100 mls/hr 07/19/23 16:48 07/19/23 17:00 Potassium Chloride/H20 IV 07/19/23 17:47 100 mls/hr ONCE ONE Administration Potassium Bicarbonate 50 meq 07/19/23 16:43 07/19/23 17:00 Potassium Bicarbonate/Cit Ac 25 Meq Tablet.Eff PO 07/19/23 16:44 50 meq ONCE ONE Administration Medical Decision Making Lab Data 07/19/23 14:52 07/19/23 14:52 Labs: Lab Results 07/19/23 Range/Units 14:52 WBC 14.5 H (4.8-10.8) X10*3/uL RBC 3.02 L (4.20-5.50) X10*6/uL Hgb 8.4 L (12.0-16.0) g/dl Hct 26.0 L (37.0-47.0) % MCV 86.1 (80.0-98.0) fL MCH 27.8 (27.0-33.0) pg MCHC 32.3 (31.0-35.0) g/dl RDW 15.4 (11.0-16.0) % Plt Count 344 D (160-400) X10*3/uL MPV 11.8 (9.4-12.3) fL Immature Gran % (Auto) 0.5 H (0.0-0.4) % Neut % (Auto) 78.3 H (45-73) % Lymph % (Auto) 14.5 L (20-40) % [place] % (Auto) 5.5 (2-11) % Eos % (Auto) 0.6 (0-4) % Baso % (Auto) 0.6 (0-2) % Lymph # (Auto) 2.1 (1.2-4.9) X10*3/uL [place] # (Auto) 0.8 (0.1-1.2) X10*3/uL Eos # (Auto) 0.1 (0.0-0.4) X10*3/uL Baso # (Auto) 0.1 (0.0-0.2) X10*3/uL Abs Immat Gran (auto) 0.07 H (0.00-0.03) X10*3/uL Absolute Neuts (auto) 11.4 H (2.0-8.3) x10*3/uL Absolute Nucleated RBC 0.000 (0.0-0.012) X10*3/uL Nucleated RBC % (auto) 0.0 (0.0-0.2) /100WBC Sodium 139 (135-145) mmol/L Potassium 2.6 L* (3.3-5.1) mmol/L Chloride 109 H (96-108) mmol/L Carbon Dioxide 24 (22-29) mmol/L Anion Gap 9 L (12-20) BUN 8 L (9-16) mg/dL Creatinine 0.69 (0.5-1.4) mg/dL Estim Creat Clear Calc 87.4 Estimated GFR > 60 Random Glucose 151 H (60-115) mg/dL Calcium 8.0 L (8.4-10.2) mg/dL Magnesium 1.6 (1.6-2.6) mg/dL Total Bilirubin 0.6 (0.0-1.0) mg/dL AST 13 (5-31) U/L ALT 7 (0-31) U/L Alkaline Phosphatase 111 (39-117) U/L Total Protein 6.2 L (6.5-8.0) g/dL Albumin 2.5 L (3.5-5.0) g/dL Discharge Plan Discharge Clinical Impression: Abdominal wall seroma Patient Disposition: Home, Self-Care Instructions: Seroma (DC) Additional Instructions: Leakage from the postop wound is normal , is not infected Local care as advised Follow with your surgeon if any concerns Leakage will stop in next few days Prescriptions: No Action furosemide 40 mg tablet 20 mg PO DAILY clonazepam 1 mg tablet 1 mg PO TID potassium chloride 10 mEq tablet extended release 10 meq PO DAILY aspirin 81 mg tablet,delayed release (DR/EC) 81 mg PO DAILY bupropion HCl 100 mg tablet sustained-release 12 hr 100 mg PO QAM yzotjmxrmf-pasihcnlikjwd-nhwb 50-325-40 mg tablet 1 tab PO Q6H PRN (Reason: pain) gabapentin 800 mg tablet 800 mg PO BID trazodone 100 mg tablet 300 mg PO BEDTIME pramipexole 0.25 mg tablet 0.25 mg PO DAILY lorazepam 1 mg tablet 1 mg PO TID albuterol sulfate [Ventolin HFA] 90 mcg/actuation Hfa Aerosol Inhaler 2 puff INHALATION Q6H PRN (Reason: Shortness Of Breath) hydroxyzine HCl 10 mg tablet 10 mg PO TID PRN (Reason: Anxiety) topiramate 100 mg tablet 100 mg PO BID metoprolol tartrate 25 mg Tablet 25 mg PO DAILY pregabalin 150 mg capsule 150 mg PO BID budesonide-formoterol [Symbicort] 160-4.5 mcg/actuation HFA aerosol inhaler 2 puff inhalation BID Trintellix 20 mg tablet 20 mg PO DAILY melatonin-lemon balm leaf extr 10-1 mg tablet 1 tab PO BEDTIME Ozempic 0.25 mg or 0.5 mg (2 mg/3 mL) Pen Injector 0.5 mg SUBCUT QWEEK insulin aspart U-100 100 unit/mL (3 mL) Insulin Pen 4 - 30 unit SUBCUT TID sennosides [senna] 8.6 mg tablet 8.6 mg PO BEDTIME polyethylene glycol 3350 17 gram powder in packet 17 g PO DAILY PRN (Reason: constipation) lactulose 10 gram/15 mL solution 15 ml PO QAM pantoprazole 40 mg tablet,delayed release (DR/EC) 40 mg PO DAILY omeprazole 20 mg capsule,delayed release(DR/EC) 20 mg PO DAILY Qty: 30 0RF ondansetron 4 mg tablet,disintegrating 4 mg PO Q8H PRN (Reason: nausea and vomiting) Qty: 20 0RF amoxicillin-pot clavulanate 875-125 mg tablet 1 tab PO BID Qty: 14 0RF (DME) Ultra-Light Rollator Misc See Rx Instructions .Route Qty: 1 0RF Rx Instructions: As directed Print Language: Setswana
[2023-07-19 15:02] LABS: MANUAL DIFF FLAG NO
[2023-07-19 15:03] LABS: Hemoglobin 8.4 g/dl (12.0-16.0); Mean Corpuscular HGB Conc 32.3 g/dl (31.0-35.0); Mean Corpuscular Hemoglobin 27.8 pg (27.0-33.0); Mean Corpuscular Volume 86.1 fL (80.0-98.0); Monocytes Percent Auto 5.5 % (2-11); Red Blood Count 3.02 X10*6/uL (4.20-5.50)
[2023-07-19 15:14] LABS: Basophils Absolute Auto 0.1 X10*3/uL (0.0-0.2); Basophils Percent Auto 0.6 % (0-2); Eosinophils Absolute Auto 0.1 X10*3/uL (0.0-0.4); Eosinophils Percent Auto 0.6 % (0-4); Imm Gran Abs Auto 0.07 X10*3/uL (0.00-0.03); Imm Gran Pct Auto 0.5 % (0.0-0.4); Lymphocytes Absolute Auto 2.1 X10*3/uL (1.2-4.9); Lymphocytes Percent Auto 14.5 % (20-40); Mean Platelet Volume 11.8 fL (9.4-12.3); Monocytes Absolute Auto 0.8 X10*3/uL (0.1-1.2); Neutrophils Absolute Auto 11.4 x10*3/uL (2.0-8.3); Neutrophils Percent Auto 78.3 % (45-73); Platelet Count 344 X10*3/uL (160-400); Red Cell Distribution Width 15.4 % (11.0-16.0); White Blood Count 14.5 X10*3/uL (4.8-10.8)
[2023-07-19 15:34] LABS: Alanine Aminotransferase 7 U/L (0-31); Albumin Level 2.5 g/dL (3.5-5.0); Alkaline Phosphatase 111 U/L (39-117); Anion Gap 9 (12-20); Aspartate Amino Transferase 13 U/L (5-31); Bilirubin Total 0.6 mg/dL (0.0-1.0); Blood Urea Nitrogen 8 mg/dL (9-16); Carbon Dioxide 24 mmol/L (22-29); Chloride 109 mmol/L (96-108); Creatinine Clr Calc Pharmacy 87.4; Estimated Glomerular Filt Rate > 60; Glucose Random 151 mg/dL (60-115); Magnesium 1.6 mg/dL (1.6-2.6); Potassium 2.6 mmol/L (3.3-5.1); Sodium 139 mmol/L (135-145); Total Protein 6.2 g/dL (6.5-8.0)
--- NOTE | 2023-07-19 16:45 | ECG_ITS ---
Test Reason : HYPOKALEMIA Blood Pressure : / mmHG Vent. Rate : 076 BPM Atrial Rate : 076 BPM P-R Int : 120 ms QRS Dur : 088 ms QT Int : 426 ms P-R-T Axes : 005 005 031 degrees QTc Int : 479 ms Normal sinus rhythm Normal ECG When compared with ECG of 08-JUN-2023 00:22, Nonspecific T wave abnormality no longer evident in Anterolateral leads Referred By: Norris Alba Electronically Signed By:GEOFF ALVAREZ
[2023-07-19 16:53] VITALS: BP 118/63; PULSE 75; RESP 18; TEMP 36.9; O2SAT 97
[2023-07-19] MEDS: Potassium Chloride/H20 10 MEQ/100 ML PIGGYBACK 100 MEQ IV (17:00)
[2023-07-19] MEDS: Potassium Bicarbonate/Cit AC 25 MEQ TABLET.EFF 50 MEQ PO (17:00)
[2023-07-19] MEDS: Potassium Chloride ER 20 MEQ TAB.ER.PRT 40 MEQ PO (19:24)
[2023-07-19 19:49] VITALS: BP 122/65; PULSE 69; RESP 16; TEMP 36.1; O2SAT 98
== END 2023-07-19 19:50 | disposition home or self-care (01) ==
PROVIDERS: Physician Assistant Medical; Emergency Provider Internal Medicine
DX: L76.34 Postprocedural seroma of skin and subcutaneous tissue following other procedure (principal); Y83.2 Surgical operation with anastomosis, bypass or graft as the cause of abnormal reaction of the patient, or of later complication, without mention of misadventure at the time of the procedure; Y92.9 Unspecified place or not applicable; I10 Essential (primary) hypertension; E11.9 Type 2 diabetes mellitus without complications
CPT/HCPCS: 36415; 80053; 83735; 85025; 93005; 96365; 96366; 99284; 99285; J3480

== ENCOUNTER → 2023-07-19 16:45 | Outpatient (BNV) | payer OTHER, SELFPAY | PROVIDERS: Emergency Provider Internal Medicine; Visit Provider Internal Medicine | DX: E87.6 Hypokalemia (principal) | CPT/HCPCS: 93010 ==

== ENCOUNTER 2023-07-22 10:06 | Outpatient (AMB) | payer OTHER, SELFPAY ==
--- NOTE | 2023-07-22 10:10 | A.OFFVIS_ITS ---
Intake Visit Reasons: stick removal site draining Intake Note: Patient is seen in office for post op assessment post exploratory laparotomy. Pt c/o: admits to changing dressing every 4 hrs, painful to the touch, foul odor, does not have nurse coming in to help with dressing, would like to have one Manager Medicaid Required: No Accompanied by: Family/Other Allergies cephalexin [From Keflex] Allergy (Intermediate, Verified 07/22/23 10:21) Swelling glipizide Allergy (Intermediate, Verified 07/22/23 10:21) Rash metformin Allergy (Intermediate, Verified 07/22/23 10:21) Itching morphine Allergy (Intermediate, Verified 07/22/23 10:21) Nausea and Vomiting/ineffective ropinirole [From Requip] Allergy (Intermediate, Verified 07/22/23 10:21) Nausea and Vomiting doxycycline Allergy (Verified 07/22/23 10:21) Hives CLARITZA Inhibitors Adverse Reaction (Intermediate, Verified 07/22/23 10:21) Cough HPI Comments Details: Patient returns for wound check following repair of a perforated ulcer at Pamela-en-Y anastomosis performed on 06/03/2023. She returns with a persistent drainage from the umbilicus. Her is changing the dressings almost 4 times daily. She reports pain associated with the incision. She is due to see Jamshid Patel at [facility]. [facility] Medical History Physical deconditioning Spondylolisthesis, lumbar region Arthritis GERD (gastroesophageal reflux disease) Depression Polysubstance abuse Osteoarthritis Sleep apnea Elevated cholesterol Bipolar 1 disorder RLS (restless legs syndrome) Asthma HTN (hypertension) Pulmonary embolism Peripheral neuropathy Diabetes Surgical History Hx of exploratory laparotomy (06/03/23) H/O colonoscopy History of total right knee replacement Hx of tonsillectomy Hx of tubal ligation Hx of hysterectomy History of sleeve gastrectomy Social History Household Members: Spouse Housing: House Are you a primary career services representative to a significant other at home: No Do you presently have visiting nurse or other home services: No Patient Tobacco Use Status: Never used Tobacco service: No Physical Exam Const General: no acute distress Nutritional Appearance: well nourished Limitations: ambulation with cane Resp Other: Short of breath with ambulation GI Other: Open wound in midline incision around the umbilicus. Gentle probing reveals a pocket extending up into the right measuring approximately 2 cm in diameter. This was packed with quarter-inch Nu Gauze and covered with dry sterile dressings. Extrem Other: No edema Assessment & Plan Assessment & Plan (1) Bowel perforation: Code(s): K63.1 - Perforation of intestine (nontraumatic) Category: Medical Plan Patient returns for wound check with an open wound. Wound was packed with Nu Gauze and covered with dry sterile dressings. I recommended VNA for dressing changes and wound packing daily. He will return in 1-2 weeks for wound check. Coding Level of Care Code Global (82706) Diagnoses Bowel perforation K63.1
== END 2023-07-22 10:34 | disposition home or self-care (01) ==
PROVIDERS: Visit Provider Surgery
DX: K63.1 Perforation of intestine (nontraumatic) (principal)
CPT/HCPCS: 99024

== ENCOUNTER → 2023-07-22 10:06 | Outpatient (BNVA) | payer OTHER, SELFPAY | PROVIDERS: Visit Provider Surgery | DX: K63.1 Perforation of intestine (nontraumatic) (principal); Z90.3 Acquired absence of stomach [part of] | CPT/HCPCS: 99212 ==

== ENCOUNTER 2023-07-29 14:27 | Outpatient (AMB) | payer OTHER, SELFPAY ==
--- NOTE | 2023-07-29 14:28 | A.OFFVIS_ITS ---
Vital Signs 07/29/23 14:38 Height 5 ft 4 in Weight 175 lb 4 oz BMI 30.1 BP 129/62 Blood Pressure Location Lt brachial Position Sitting Pulse 92 Intake Visit Reasons: 1 wk follow up stitch removal site draining Intake Note: Patient is seen in office for one week follow up wound check/site draining, post op assessment post exploratory laparotomy. Pt c/o: area is draining through the belly button and another site, yellowish, painfuk, changing dressing 3 times a day, has VNA coming in 2/3 times a week Graduate Engineer Required: No Accompanied by: Family/Other Allergies cephalexin [From Keflex] Allergy (Intermediate, Verified 07/29/23 14:38) Swelling glipizide Allergy (Intermediate, Verified 07/29/23 14:38) Rash metformin Allergy (Intermediate, Verified 07/29/23 14:38) Itching morphine Allergy (Intermediate, Verified 07/29/23 14:38) Nausea and Vomiting/ineffective ropinirole [From Requip] Allergy (Intermediate, Verified 07/29/23 14:38) Nausea and Vomiting doxycycline Allergy (Verified 07/29/23 14:38) Hives CLARITZA Inhibitors Adverse Reaction (Intermediate, Verified 07/29/23 14:38) Cough HPI Comments Details: 62-year-old female patient returning for wound check following repair of a perforated ulcer at Pamela-en-Y anastomosis performed on 06/03/2023. She was seen last week and an opening in the umbilicus identified with tunneling below the skin a proximally 3 cm. This was packed with Nu Gauze and arrangements made for VNA for dressing changes. She continues with the daily dressing changes with the assistance of her and visiting nurses have come several times to the home. She is due to see Jamshid Patel at [facility]. [facility] Medical History Physical deconditioning Spondylolisthesis, lumbar region Arthritis GERD (gastroesophageal reflux disease) Depression Polysubstance abuse Osteoarthritis Sleep apnea Elevated cholesterol Bipolar 1 disorder RLS (restless legs syndrome) Asthma HTN (hypertension) Pulmonary embolism Peripheral neuropathy Diabetes Surgical History Hx of exploratory laparotomy (06/03/23) H/O colonoscopy History of total right knee replacement Hx of tonsillectomy Hx of tubal ligation Hx of hysterectomy History of sleeve gastrectomy Social History Household Members: Spouse Housing: House Are you a primary home care administrator to a significant other at home: No Do you presently have visiting nurse or other home services: No Patient Tobacco Use Status: Never used Tobacco service: No Physical Exam Vital Signs: Last Vital Signs Pulse 92 07/29/23 14:38 BP 129/62 07/29/23 14:38 BMI result Body Mass Index 30.1 Const General: no acute distress Nutritional Appearance: well nourished Limitations: ambulation with cane Resp Other: Short of breath with ambulation GI Other: Open wound in midline incision around the umbilicus. Gentle probing reveals a pocket extending up into the right measuring approximately 1.5 cm in diameter. This was covered with dry sterile dressings and paper tape. Extrem Other: No edema Assessment & Plan Assessment & Plan (1) Bowel perforation: Code(s): K63.1 - Perforation of intestine (nontraumatic) Category: Medical Plan Continue local wound care with dry sterile dressings to the incision. She should follow up in approximately 2 weeks for wound check. Follow-up with Gastroenterology for perforated ulcer. Continue the omeprazole. Coding Level of Care Code Global (10808) Diagnoses Bowel perforation K63.1
[2023-07-29 14:38] VITALS: BP 129/62; PULSE 92; BMI 30.1
== END 2023-07-29 14:52 | disposition home or self-care (01) ==
PROVIDERS: Visit Provider Surgery
DX: K63.1 Perforation of intestine (nontraumatic) (principal)
CPT/HCPCS: 99024

== ENCOUNTER → 2023-07-29 14:27 | Outpatient (BNVA) | payer OTHER, SELFPAY | PROVIDERS: Visit Provider Surgery | DX: Z48.01 Encounter for change or removal of surgical wound dressing (principal); K63.1 Perforation of intestine (nontraumatic) | CPT/HCPCS: 99212 ==

== ENCOUNTER 2023-08-10 09:27 | Outpatient (AMB) | payer OTHER, SELFPAY ==
[2023-08-10 09:36] VITALS: BP 120/65; PULSE 78; BMI 29.2
--- NOTE | 2023-08-10 09:36 | MHC.OFFVIS ---
Vital Signs 08/10/23 09:36 Height 5 ft 4 in Weight 170 lb BMI 29.2 BP 120/65 Blood Pressure Location Rt brachial Position Sitting Pulse 78 Intake Visit Reasons: wound check Intake Note: This patient presents for an assessment for wound check. Patient c/o; reports oozing from incision. Job Analysis Manager Required: No Accompanied by: Other Relationship Allergies cephalexin [From Keflex] Allergy (Intermediate, Verified 08/10/23 09:44) Swelling glipizide Allergy (Intermediate, Verified 08/10/23 09:44) Rash metformin Allergy (Intermediate, Verified 08/10/23 09:44) Itching morphine Allergy (Intermediate, Verified 08/10/23 09:44) Nausea and Vomiting/ineffective ropinirole [From Requip] Allergy (Intermediate, Verified 08/10/23 09:44) Nausea and Vomiting doxycycline Allergy (Verified 08/10/23 09:44) Hives CLARITZA Inhibitors Adverse Reaction (Intermediate, Verified 08/10/23 09:44) Cough Medication List - Last Reconciled 08/10/23 by Danny Hernandez MD [1/4 inch plain packing As directed] [2 inch cloth tape As directed] [4x4 sterile gauze As directed] albuterol sulfate 90 mcg/actuation (Ventolin HFA) 2 puffs inhalation Q6H PRN amoxicillin-pot clavulanate 875-125 mg 1 tab PO BID apixaban (Eliquis) 5 mg PO BID aspirin 81 mg PO DAILY atorvastatin 40 mg PO DAILY budesonide-formoterol 160-4.5 mcg/actuation (Symbicort) 2 puffs inhalation BID bupropion HCl SR 100 mg PO QAM fvzddysehb-injrspvewgcer-ygcd 50-325-40 mg 1 tab PO Q6H PRN clonazepam 1 mg PO TID furosemide 20 mg PO DAILY gabapentin 800 mg PO BID hydroxyzine HCl 10 mg PO TID PRN insulin aspart U-100 4 - 30 units subcut TID lactulose 15 mL PO QAM lorazepam 1 mg PO TID melatonin-lemon balm leaf extr 10-1 mg 1 tab PO BEDTIME metoprolol tartrate 25 mg PO DAILY non-adherent bandage (Curity Abdominal Pad) As directed omeprazole 20 mg PO DAILY ondansetron 4 mg PO Q8H PRN oxycodone-acetaminophen 5-325 mg 1 tab PO QID PRN pantoprazole 40 mg PO DAILY polyethylene glycol 3350 17 grams PO DAILY PRN potassium chloride ER 20 mEq PO DAILY potassium chloride ER 10 mEq PO DAILY pramipexole 0.25 mg PO DAILY pregabalin 150 mg PO BID semaglutide (Ozempic) 0.5 mg subcut QWEEK sennosides (senna) 8.6 mg PO BEDTIME topiramate 100 mg PO BID trazodone 300 mg PO BEDTIME vortioxetine (Trintellix) 20 mg PO DAILY walker (Ultra-Light Rollator mis) As directed HPI Comments Details: 62-year-old female patient returning for wound check following repair of a perforated ulcer at Pamela-en-Y anastomosis performed on 06/03/2023. She was seen last week and an opening in the umbilicus identified with tunneling below the skin a proximally 3 cm. This was packed with Nu Gauze and arrangements made for VNA for dressing changes. She continues with the daily dressing changes with the assistance of her and visiting nurses have come several times to the home. She continues to have a white cloudy discharge and requires dressing changes several times daily. [facility] Medical History Physical deconditioning Spondylolisthesis, lumbar region Arthritis GERD (gastroesophageal reflux disease) Depression Polysubstance abuse Osteoarthritis Sleep apnea Elevated cholesterol Bipolar 1 disorder RLS (restless legs syndrome) Asthma HTN (hypertension) Pulmonary embolism Peripheral neuropathy Diabetes Surgical History Hx of exploratory laparotomy (06/03/23) H/O colonoscopy History of total right knee replacement Hx of tonsillectomy Hx of tubal ligation Hx of hysterectomy History of sleeve gastrectomy Social History Household Members: Spouse Housing: House Are you a primary in home caregiver to a significant other at home: No Do you presently have visiting nurse or other home services: No Patient Tobacco Use Status: Never used Tobacco service: No Review of Systems Const All systems reviewed & are unremarkable except as noted in HPI and below Physical Exam Vital Signs: Last Vital Signs Pulse 78 08/10/23 09:36 BP 120/65 08/10/23 09:36 BMI result Body Mass Index 29.2 Const General: no acute distress Nutritional Appearance: well nourished Limitations: ambulation with cane Resp Other: Short of breath with ambulation GI Other: Open wound in midline incision around the umbilicus. Gentle probing reveals a pocket extending up into the right measuring approximately 1.5 cm in diameter. This was covered with dry sterile dressings and paper tape. Extrem Other: No edema Assessment & Plan Assessment & Plan (1) Bowel perforation: Code(s): K63.1 - Perforation of intestine (nontraumatic) Category: Medical Plan Continue local wound care with dry sterile dressings to the incision. I recommended abdominal wound exploration with washout and possible removal of foreign body (suture). After discussion of the procedure, risks, and alternatives, she consents to an abdominal wound exploration. Coding Level of Care Code Est Pt Level 3 (22983) Diagnoses Bowel perforation K63.1
== END 2023-08-10 09:58 | disposition home or self-care (01) ==
PROVIDERS: Visit Provider Surgery
DX: K63.1 Perforation of intestine (nontraumatic) (principal)
CPT/HCPCS: 99024

== ENCOUNTER → 2023-08-10 09:27 | Outpatient (BNVA) | payer OTHER, SELFPAY | PROVIDERS: Visit Provider Surgery | DX: K63.1 Perforation of intestine (nontraumatic) (principal) | CPT/HCPCS: 99212 ==

== ENCOUNTER → 2023-08-19 14:28 | Outpatient (BNVA) | payer OTHER, SELFPAY | PROVIDERS: PCP Internal Medicine; Visit Provider Surgery | DX: M54.14 Radiculopathy, thoracic region (principal); Z98.1 Arthrodesis status | CPT/HCPCS: 99211 ==

== ENCOUNTER 2023-08-23 11:10 | Day surgery (SDC) | payer OTHER, SELFPAY ==
[2023-08-19 13:20] VITALS: BP 111/65; PULSE 66; RESP 16; TEMP 36.7; O2SAT 98; BMI 30.6
--- NOTE | 2023-08-19 13:42 | HO.ANESPROP2 ---
Documented by User: Lissette Roper NP 08/20/23 08:47 HPI - Anesthesia Eval Consult details Narrative: 62yo F for Debridement Soft Tissue (Abdominal Wound Exploration) [facility] [place] (days post spine OLIF procedure and s/p gastric bypass 03/2023) Hospital course # Perforated gastric ulcer s\p lapratomy CT scan showed pneumoperitonium that was evaluated by surgery team who did an urgent lapratomy finding perforated ulcer that was controlled. advance diet as tolerated to regular. Placed on IV Pantoprazole and will be discharged on PO Omeprazole. To follow up with surgery as outpatient. # Septic shock secondary to intraabdominal infx resolved as the patient was admitted to ICU post lapratomy. treated with Zosyn and Caspofungin as blood cultures remained negative. To be discharged on Augmentin. # Acute hypoxic resp failure secondary to septic shock and aspiration PNA Admitted to ICU post op as CT showed bilateral effusion and infiltrates. extubated and weaned off Oxygen. was able to participate with PT who recommended STR but she prefers to go home with VNA and home PT. To finish Augmentin therapy at home. # JOSE MANUEL and hypokalemia. Developed as a result of septic shock and perforated viscous. resolved with usage of IV fluids. Potassium replacement given. patient refused repeat labs on day of discharge. PE: Eliquis on hold Asthma: Stable with symbicort BID. No albuterol needed GERD: ppi covers DM: FBS ~ 96. No rx at this. Critically low K since June 2023: Pt states that she has not been taking K supplement because rx'd by ER doc and no refills. Notifieid Gen Surg nurse Mukesh. Will await repeat labs 08/19/23. Repeat K WNL. PMFSH Active Problems Active Problems: All Active Problems S/P lumbar fusion (Acute) Thoracic radiculopathy (Acute) Past Medical History Medical History (Updated 08/23/23 @ 12:33 by Kat Mary MD) Physical deconditioning Arthritis GERD (gastroesophageal reflux disease) Depression Polysubstance abuse Osteoarthritis Sleep apnea Elevated cholesterol Bipolar 1 disorder RLS (restless legs syndrome) Asthma HTN (hypertension) Pulmonary embolism Peripheral neuropathy Diabetes Spondylolisthesis, lumbar region Family History Family history of problems with anesthesia: No Surgical History Surgical History History of spinal surgery (05/31/23) History of Pamela-en-Y gastric bypass (~03/2023) Hx of exploratory laparotomy (06/03/23) H/O colonoscopy History of total right knee replacement Hx of tonsillectomy Hx of tubal ligation Hx of hysterectomy History of sleeve gastrectomy History of Problems with Anesthesia: No Social History Social History Household Members: Spouse Housing: Apartment Are you a primary home visit field care manager to a significant other at home: No Do you presently have visiting nurse or other home services: Yes (VNA 3 x week dressing changes) Comment: aware of trip hazard Patient Tobacco Use Status: Never used Tobacco Use of substances other than those prescribed or required for medical reasons: No Have you been hit, kicked, punched, or otherwise hurt by someone within the past year? If so, by whom?: No Are you DNR?: No Advance Directives: No Advance Directives Information Provided: Yes Advance Directives on File: No Recently lost weight without trying: No Poor oral hygiene: Yes (none on bottom, a few on the top) service: No Meds Allergies Allergy/AdvReac Type Severity Reaction Status Date / Time cephalexin [From Keflex] Allergy Intermediate Swelling Verified 08/23/23 11:24 glipizide Allergy Intermediate Rash Verified 08/23/23 11:24 metformin Allergy Intermediate Itching Verified 08/23/23 11:24 morphine Allergy Intermediate Nausea and Verified 08/23/23 11:24 Vomiting/ineffective ropinirole [From Requip] Allergy Intermediate Nausea and Verified 08/23/23 11:24 Vomiting doxycycline Allergy Hives Verified 08/23/23 11:24 CLARITZA Inhibitors AdvReac Intermediate Cough Verified 08/10/23 09:44 Home Medications ?Medication ?Instructions ?Recorded ?Confirmed ?Last Taken ?Type albuterol sulfate 90 mcg/actuation 2 puff inhalation Q6H PRN 04/28/23 08/19/23 Unknown History aerosol inhaler (Ventolin HFA) Shortness Of Breath budesonide-formoterol HFA 160 2 puff inhalation BID 04/28/23 08/19/23 05/31/23 07:30 History mcg-4.5 mcg/actuation aerosol inhaler (Symbicort) bupropion HCl 100 mg tablet,12 hr 100 mg PO QAM 04/28/23 08/19/23 08/23/23 History sustained-release bctmbxbjql-rmlopvgodnbps-yfqxmbdv 1 tab PO Q6H PRN pain 04/28/23 08/19/23 Unknown History 50 mg-325 mg-40 mg tablet clonazepam 1 mg tablet 1 mg PO TID 04/28/23 08/19/23 08/23/23 History furosemide 40 mg tablet 20 mg PO DAILY 04/28/23 08/19/23 05/30/23 History gabapentin 800 mg tablet 800 mg PO BID 04/28/23 08/19/23 08/23/23 History hydroxyzine HCl 10 mg tablet 10 mg PO TID PRN Anxiety 04/28/23 08/19/23 08/23/23 History lorazepam 1 mg tablet 1 mg PO TID 04/28/23 08/19/23 08/23/23 History melatonin 10 mg-lemon balm leaf 1 tab PO BEDTIME 04/28/23 08/19/23 Unknown History extract 1 mg tablet metoprolol tartrate 25 mg tablet 25 mg PO DAILY 04/28/23 08/19/23 08/23/23 History pramipexole 0.25 mg tablet 0.25 mg PO DAILY 04/28/23 08/19/23 05/30/23 History pregabalin 150 mg capsule 150 mg PO BID 04/28/23 08/19/23 Unknown History topiramate 100 mg tablet 100 mg PO BID 04/28/23 08/19/23 05/30/23 History trazodone 100 mg tablet 300 mg PO BEDTIME 04/28/23 08/19/23 05/30/23 History vortioxetine 20 mg tablet 20 mg PO DAILY 04/28/23 08/19/23 05/30/23 History (Trintellix) lactulose 10 gram/15 mL oral 15 ml PO QAM 04/29/23 08/19/23 05/30/23 History solution pantoprazole 40 mg tablet,delayed 40 mg PO DAILY 04/29/23 08/19/23 08/23/23 History release apixaban 5 mg tablet (Eliquis) 5 mg PO BID 07/22/23 08/19/23 08/17/23 History atorvastatin 40 mg tablet 40 mg PO DAILY 07/22/23 08/19/23 Unknown History Exam Height,Weight and Vital Signs: Height 5 ft 4 in Weight 81 kg Last Vital Signs Temp 98.1 F 08/19/23 13:20 Pulse 66 08/19/23 13:20 Resp 16 08/19/23 13:20 BP 111/65 08/19/23 13:20 Pulse Ox 98 08/19/23 13:20 O2 Del Method Room Air 08/19/23 13:20 Pertinent Lab Results Pertinent Lab Results: Lab Results 08/19/23 08/19/23 Range/Units 14:07 14:22 WBC 8.9 (4.8-10.8) X10*3/uL RBC 3.59 L (4.20-5.50) X10*6/uL Hgb 10.4 L D (12.0-16.0) g/dl Hct 32.9 L D (37.0-47.0) % MCV 91.6 (80.0-98.0) fL MCH 29.0 (27.0-33.0) pg MCHC 31.6 (31.0-35.0) g/dl RDW 17.1 H (11.0-16.0) % Plt Count 255 D (160-400) X10*3/uL MPV 12.0 (9.4-12.3) fL Absolute Nucleated RBC 0.000 (0.0-0.012) X10*3/uL Nucleated RBC % (auto) 0.0 (0.0-0.2) /100WBC Sodium 144 (135-145) mmol/L Potassium 3.7 D (3.3-5.1) mmol/L Chloride 112 H (96-108) mmol/L Carbon Dioxide 26 (22-29) mmol/L Anion Gap 10 L (12-20) BUN 9 (9-16) mg/dL Creatinine 0.74 (0.5-1.4) mg/dL Estim Creat Clear Calc 81.1 Estimated GFR > 60 Random Glucose 89 (60-115) mg/dL Calcium 8.8 D (8.4-10.2) mg/dL Blood Type A Negative Antibody Screen NEGATIVE Narrative Narrative: EKG 07/2023 Vent. Rate : 076 BPM Atrial Rate : 076 BPM P-R Int : 120 ms QRS Dur : 088 ms QT Int : 426 ms P-R-T Axes : 005 005 031 degrees QTc Int : 479 ms Normal sinus rhythm Normal ECG When compared with ECG of 08-JUN-2023 00:22, Nonspecific T wave abnormality no longer evident in Anterolateral leads Assessment and Plan Assessment Anesthesia Assessment: Anesthesia Plan Discussed and PAT Visit Final Anesthetic Review Family History of Problems with Anesthesia: No History of Problems with Anesthesia: No Documented by User: Kat Mary MD 08/23/23 12:35 HPI - Anesthesia Eval Consult details Narrative: 62yo F for Debridement Soft Tissue (Abdominal Wound Exploration) [facility] [place] (days post spine OLIF procedure and s/p gastric bypass 03/2023) Hospital course # Perforated gastric ulcer s\p lapratomy CT scan showed pneumoperitonium that was evaluated by surgery team who did an urgent lapratomy finding perforated ulcer that was controlled. advance diet as tolerated to regular. Placed on IV Pantoprazole and will be discharged on PO Omeprazole. To follow up with surgery as outpatient. # Septic shock secondary to intraabdominal infx resolved as the patient was admitted to ICU post lapratomy. treated with Zosyn and Caspofungin as blood cultures remained negative. To be discharged on Augmentin. # Acute hypoxic resp failure secondary to septic shock and aspiration PNA Admitted to ICU post op as CT showed bilateral effusion and infiltrates. extubated and weaned off Oxygen. was able to participate with PT who recommended STR but she prefers to go home with VNA and home PT. To finish Augmentin therapy at home. # JOSE MANUEL and hypokalemia. Developed as a result of septic shock and perforated viscous. resolved with usage of IV fluids. Potassium replacement given. patient refused repeat labs on day of discharge. PE: Eliquis on hold Asthma: Stable with symbicort BID. No albuterol needed GERD: ppi covers DM: FBS ~ 96. No rx at this. Critically low K since June 2023: Pt states that she has not been taking K supplement because rx'd by ER doc and no refills. Notified Gen Surg nurse Mukesh. Will await repeat labs 08/19/23. Repeat K WNL. [facility] Past Medical History Medical History (Updated 08/23/23 @ 12:33 by Kat Mary MD) Physical deconditioning Arthritis GERD (gastroesophageal reflux disease) Depression Polysubstance abuse Osteoarthritis Sleep apnea Elevated cholesterol Bipolar 1 disorder RLS (restless legs syndrome) Asthma HTN (hypertension) Pulmonary embolism Peripheral neuropathy Diabetes Spondylolisthesis, lumbar region Family History Family history of problems with anesthesia: No Surgical History Surgical History History of spinal surgery (05/31/23) History of Pamela-en-Y gastric bypass (~03/2023) Hx of exploratory laparotomy (06/03/23) H/O colonoscopy History of total right knee replacement Hx of tonsillectomy Hx of tubal ligation Hx of hysterectomy History of sleeve gastrectomy History of Problems with Anesthesia: No Social History Social History Household Members: Spouse Housing: Apartment Are you a primary home visit field care manager to a significant other at home: No Do you presently have visiting nurse or other home services: Yes (VNA 3 x week dressing changes) Comment: aware of trip hazard Patient Tobacco Use Status: Never used Tobacco Use of substances other than those prescribed or required for medical reasons: No Have you been hit, kicked, punched, or otherwise hurt by someone within the past year? If so, by whom?: No Are you DNR?: No Advance Directives: No Advance Directives Information Provided: Yes Advance Directives on File: No Recently lost weight without trying: No Poor oral hygiene: Yes (none on bottom, a few on the top) service: No Meds Allergies Allergy/AdvReac Type Severity Reaction Status Date / Time cephalexin [From Keflex] Allergy Intermediate Swelling Verified 08/23/23 11:24 glipizide Allergy Intermediate Rash Verified 08/23/23 11:24 metformin Allergy Intermediate Itching Verified 08/23/23 11:24 morphine Allergy Intermediate Nausea and Verified 08/23/23 11:24 Vomiting/ineffective ropinirole [From Requip] Allergy Intermediate Nausea and Verified 08/23/23 11:24 Vomiting doxycycline Allergy Hives Verified 08/23/23 11:24 CLARITZA Inhibitors AdvReac Intermediate Cough Verified 08/10/23 09:44 Home Medications ?Medication ?Instructions ?Recorded ?Confirmed ?Last Taken ?Type albuterol sulfate 90 mcg/actuation 2 puff inhalation Q6H PRN 04/28/23 08/19/23 Unknown History aerosol inhaler (Ventolin HFA) Shortness Of Breath budesonide-formoterol HFA 160 2 puff inhalation BID 04/28/23 08/19/23 05/31/23 07:30 History mcg-4.5 mcg/actuation aerosol inhaler (Symbicort) bupropion HCl 100 mg tablet,12 hr 100 mg PO QAM 04/28/23 08/19/23 08/23/23 History sustained-release vdyrpfehah-uoxewiziultls-hiohzchg 1 tab PO Q6H PRN pain 04/28/23 08/19/23 Unknown History 50 mg-325 mg-40 mg tablet clonazepam 1 mg tablet 1 mg PO TID 04/28/23 08/19/23 08/23/23 History furosemide 40 mg tablet 20 mg PO DAILY 04/28/23 08/19/23 05/30/23 History gabapentin 800 mg tablet 800 mg PO BID 04/28/23 08/19/23 08/23/23 History hydroxyzine HCl 10 mg tablet 10 mg PO TID PRN Anxiety 04/28/23 08/19/23 08/23/23 History lorazepam 1 mg tablet 1 mg PO TID 04/28/23 08/19/23 08/23/23 History melatonin 10 mg-lemon balm leaf 1 tab PO BEDTIME 04/28/23 08/19/23 Unknown History extract 1 mg tablet metoprolol tartrate 25 mg tablet 25 mg PO DAILY 04/28/23 08/19/23 08/23/23 History pramipexole 0.25 mg tablet 0.25 mg PO DAILY 04/28/23 08/19/23 05/30/23 History pregabalin 150 mg capsule 150 mg PO BID 04/28/23 08/19/23 Unknown History topiramate 100 mg tablet 100 mg PO BID 04/28/23 08/19/23 05/30/23 History trazodone 100 mg tablet 300 mg PO BEDTIME 04/28/23 08/19/23 05/30/23 History vortioxetine 20 mg tablet 20 mg PO DAILY 04/28/23 08/19/23 05/30/23 History (Trintellix) lactulose 10 gram/15 mL oral 15 ml PO QAM 04/29/23 08/19/23 05/30/23 History solution pantoprazole 40 mg tablet,delayed 40 mg PO DAILY 04/29/23 08/19/23 08/23/23 History release apixaban 5 mg tablet (Eliquis) 5 mg PO BID 07/22/23 08/19/23 08/17/23 History atorvastatin 40 mg tablet 40 mg PO DAILY 07/22/23 08/19/23 Unknown History Exam Height,Weight and Vital Signs: Height 5 ft 4 in Weight 81 kg Last Vital Signs Temp 98.1 F 08/19/23 13:20 Pulse 66 08/19/23 13:20 Resp 16 08/19/23 13:20 BP 111/65 08/19/23 13:20 Pulse Ox 98 08/19/23 13:20 O2 Del Method Room Air 08/19/23 13:20 Lab Results 08/19/23 08/19/23 08/23/23 Range/Units 14:07 14:22 12:02 WBC 8.9 (4.8-10.8) X10*3/uL RBC 3.59 L (4.20-5.50) X10*6/uL Hgb 10.4 L D (12.0-16.0) g/dl Hct 32.9 L D (37.0-47.0) % MCV 91.6 (80.0-98.0) fL MCH 29.0 (27.0-33.0) pg MCHC 31.6 (31.0-35.0) g/dl RDW 17.1 H (11.0-16.0) % Plt Count 255 D (160-400) X10*3/uL MPV 12.0 (9.4-12.3) fL Absolute Nucleated RBC 0.000 (0.0-0.012) X10*3/uL Nucleated RBC % (auto) 0.0 (0.0-0.2) /100WBC Sodium 144 (135-145) mmol/L Potassium 3.7 D (3.3-5.1) mmol/L Chloride 112 H (96-108) mmol/L Carbon Dioxide 26 (22-29) mmol/L Anion Gap 10 L (12-20) BUN 9 (9-16) mg/dL Creatinine 0.74 (0.5-1.4) mg/dL Estim Creat Clear Calc 81.1 Estimated GFR > 60 POC Glucose 85 (60-115) mg/dL Random Glucose 89 (60-115) mg/dL Calcium 8.8 D (8.4-10.2) mg/dL Blood Type A Negative Antibody Screen NEGATIVE Airway Mallampati Class: III TM Dist: >3cm Neck ROM: Full Loose/Missing/Broken Teeth: Yes (Poor dentition. Only a few teeth bottom. Denies loose) Heart: RRR Lungs: CTAB Assessment and Plan Assessment Anesthesia Assessment: Anesthesia Plan Discussed, PAT Visit and Chart Reviewed Final Anesthetic Review Family History of Problems with Anesthesia: No History of Problems with Anesthesia: No NPO: Yes ASA Class: III Final Preanesthetic Review: No Changes in Pt Med Stat, Meds/Allgs Chart Reviewed, Consent Obtained/Reviewed and Anes Risks/Benef Reviewed Patient Risk: Intermediate Procedure Risk: Low Assessment/Block/Sedation in SS: Assess/Block/Sedation-SS Anesthetic Plan Anesthetic Plan: GA Disposition: Standard PACU
[2023-08-19 15:13] LABS: Hematocrit 32.9 % (37.0-47.0); Hemoglobin 10.4 g/dl (12.0-16.0); Mean Corpuscular HGB Conc 31.6 g/dl (31.0-35.0); Mean Corpuscular Volume 91.6 fL (80.0-98.0); Platelet Count 255 X10*3/uL (160-400); Red Blood Count 3.59 X10*6/uL (4.20-5.50); Red Cell Distribution Width 17.1 % (11.0-16.0); White Blood Count 8.9 X10*3/uL (4.8-10.8)
[2023-08-19 15:40] LABS: Anion Gap 10 (12-20); Blood Urea Nitrogen 9 mg/dL (9-16); Calcium 8.8 mg/dL (8.4-10.2); Carbon Dioxide 26 mmol/L (22-29); Chloride 112 mmol/L (96-108); Creatinine Clr Calc Pharmacy 81.1; Estimated Glomerular Filt Rate > 60; Glucose Random 89 mg/dL (60-115); Potassium 3.7 mmol/L (3.3-5.1); Sodium 144 mmol/L (135-145)
[2023-08-23] VITALS (12 sets, daily range): BP systolic 114–141; BP diastolic 46–89; PULSE 67–86; RESP 14–22; TEMP 36.4–36.9; O2SAT 95–98; BMI 30.9
--- NOTE | 2023-08-23 11:44 | MHC.SHP ---
Pre-Procedural Eval Section A - 24 Hr Update-Section A only Date of Service: 08/23/23 The patient is an INPATIENT: No Changes since office visit: Yes Patient answered all questions; No Cold of Flu in the past 2 weeks, No New Medical Problems and No Changes in Medication The patient has been examined within 24 hours of the surgical procedure. The History & Physical has been completed within 30 days and I have reviewed it.: Yes Section B - Complete if H&P > 30 days Chief Complaint: Perforation of intestine (nontraumatic) Allergies: Allergies Allergy/AdvReac Type Severity Reaction Status Date / Time cephalexin [From Keflex] Allergy Intermediate Swelling Verified 08/23/23 11:24 glipizide Allergy Intermediate Rash Verified 08/23/23 11:24 metformin Allergy Intermediate Itching Verified 08/23/23 11:24 morphine Allergy Intermediate Nausea and Verified 08/23/23 11:24 Vomiting/ineffective ropinirole [From Requip] Allergy Intermediate Nausea and Verified 08/23/23 11:24 Vomiting doxycycline Allergy Hives Verified 08/23/23 11:24 CLARITZA Inhibitors AdvReac Intermediate Cough Verified 08/10/23 09:44 Plan Diagnosis/Plan: Unchanged I have reviewed the history and physical and performed a pertinent physical examination on my patient. No changes have occurred unless specified. Time Spent With Patient Time: Total time managing care of this patient today ____ minutes.
[2023-08-23] MEDS: vancomycin HCL 1,500 MG in 0.9 % Sodium Chloride 500 ML 333.33 MG IV (11:55)
[2023-08-23] MEDS: Lactated Ringers 1,000 ML 100 ML IVCONT (11:55)
[2023-08-23 12:05] LABS: Glucose, Whole Blood 85 mg/dL (60-115)
[2023-08-23] MEDS: fentaNYL citrate/PF 100 MCG/2 ML VIAL 25 MCG IVPUSH ×4 (13:55→14:10)
--- NOTE | 2023-08-23 13:56 | P.OP_ITS ---
Operative Note Operative Note Date of Service: 08/23/23 Narrative: Preoperative diagnosis:Foreign body reaction abdominal wall Postoperative diagnosis:same, abscess left upper quadrant abdomen Procedure: Wound exploration, abdominal wall, debridement of granulation tissue; incision and drainage of abdominal wall abscess, LUQ. Surgeon: Danny Hernandez MD Offset Machine Operator: Osiris Koroma PA-C Anesthesia: General LMA Indications for procedure:62 year old female with prior history of Pamela-en-Y gastric bypass with subsequent perforated ulcer at Pamela limb, s/p exploratory laparotomy and closure of ulcer, now presenting with a persistent drainage from the abdomen at the midline incision. She also was noted to have an abscess at the previous laparoscopic incision in the left upper quadrant. Operative findings:Granulation tissue involving the abdominal wall with possible stitch granuloma, foreign body reaction. Also abscess in the left lower quadrant. Specimen:abdominal wall granulation tissue, wound culture, LUQ Estimated blood loss: 5 mls Complications: none Procedure details: Patient was brought to the OR and placed in a supine position. After administering general anesthesia the patient's abdomen was prepped with Betadine and draped in a sterile fashion. A surgical time-out was called the consent confirmed. Patient received preoperative antibiotics and Venodyne boots were in place. Local anesthesia was infiltrated along the midline incision adjacent to the draining wound. A midline incision around the umbilicus was then created measuring approximately 10 cm. This was carried out through subcutaneous tissue and down to the fascia. A portion of the skin around the draining wound was excised and sent to pathology for further examination. This was done using electrocautery. Dissection was then continued below fascia were a collection of granulation tissue was identified. No purulence discharge or enteric contents could be identified. Wounds were thoroughly irrigated with saline solution as well as with Betadine solution. Additional granulation tissue was excised along with fascial edges. Several PDS suture fragments were identified within this granulation tissue suggestive of a stitch granuloma. Fascia was closed using [id number] 0 Polysorb sutures. Skin was then closed with skin enio. Attention was then directed to the left upper quadrant abscess collection. Additional local was infiltrated below this collection. Incision was then made with a 15 blade into the abscess cavity. A moderate size abscess cavity was entered and drained. Wound cultures were obtained. Wounds were then irrigated with saline solution and suctioned dry. Wounds were then packed with half-inch iodoform gauze packing. Sterile dressings consisting of 4 x 4 gauze and ABD pads were then applied. The patient tolerated the procedure well. Sponge, instrument, and needle counts reported as correct. The patient was transferred to PACU in stable condition.
[2023-08-23] MEDS: oxyCODONE HCl Immed Release 5 MG TABLET PO (14:22)
== END 2023-08-23 15:14 | disposition home or self-care (01) ==
PROVIDERS: Nurse Practitioner; PCP Internal Medicine; Visit Provider Surgery
PROC: (CPT 11043; principal; 2023-08-23 13:00)
DX: T81.42XA Infection following a procedure, deep incisional surgical site, initial encounter (principal); L92.3 Foreign body granuloma of the skin and subcutaneous tissue; L02.211 Cutaneous abscess of abdominal wall; Z98.84 Bariatric surgery status; B95.4 Other streptococcus as the cause of diseases classified elsewhere; B96.1 Klebsiella pneumoniae [K. pneumoniae] as the cause of diseases classified elsewhere
CPT/HCPCS: 11043; 10060; 36415; 80048; 82947; 85027; 86850; 86900; 86901; 87070; 87073; 87076; 87077; 87186; 87205; 88304; J1100; J2250; J2371; J2405; J2704; J3010; J3371

== ENCOUNTER → 2023-08-23 11:10 | Outpatient (BNV) | payer OTHER, SELFPAY | PROVIDERS: PCP Internal Medicine; Visit Provider Surgery | DX: T81.42XA Infection following a procedure, deep incisional surgical site, initial encounter (principal); K68.11 Postprocedural retroperitoneal abscess | CPT/HCPCS: 10060; 11043 ==

== ENCOUNTER 2023-08-29 23:23 | Inpatient (IN) | payer OTHER, SELFPAY ==
--- NOTE | ~2023-08-29 | XR_ITS ---
EXAMINATION: XR CHEST CLINICAL INFORMATION: Cough. COMPARISON: 06/07/2023 TECHNIQUE: Frontal view of the chest was obtained. FINDINGS: The cardiomediastinal silhouette is within normal limits. There is no focal lung consolidation or pleural effusions. The bony structures and soft tissues are unremarkable XR/XR chest 1V IMPRESSION: No acute cardiopulmonary process.
--- NOTE | ~2023-08-29 | CT_ITS ---
EXAMINATION: CT HEAD WITHOUT CONTRAST CLINICAL INFORMATION: Fall. Headache. COMPARISON: None available. TECHNIQUE: Contiguous axial imaging was performed from the skull base to vertex without intravenous administration of contrast. This CT examination was performed using dose optimization techniques as appropriate, variously including the following: *Automated exposure control *Adjustment of mA and/or kV according to patient size (this includes techniques or standardized protocols for targeted exams where dose is matched to indication/reason for exam; i.e. extremities or head) *Use of iterative reconstruction technique DLP: 574.50 mGy-cm FINDINGS: The lateral, third and fourth ventricles are normally outlined. The cortical sulci and basal cisterns are normally outlined as well. There is no acute territorial defect, hemorrhage or midline shift. The extra-axial spaces are unremarkable. Calvarium/scalp: Intact. Maxillofacial sinuses and mastoids: Clear as visualized. CT/CT head/brain wo IV con IMPRESSION: No acute intracranial pathology.
--- NOTE | ~2023-08-29 | XR_ITS ---
EXAMINATION: XR HAND, LEFT CLINICAL INFORMATION: Pain COMPARISON: None available. TECHNIQUE: PA, lateral, and oblique views of the left hand. FINDINGS: Visualized portion of the distal radius and ulna demonstrate no fracture. Carpal rows are maintained. There are moderate degenerative changes of the first carpal metacarpal joint. No carpal, metacarpal or phalangeal fracture. Mild to moderate degenerative changes of scattered IP joints. No localized soft tissue swelling. XR/XR hand LT min 3V IMPRESSION: Mild to moderate degenerative changes of the left hand. No fracture.
--- NOTE | ~2023-08-29 | CT_ITS ---
EXAMINATION: CT ABDOMEN AND PELVIS WITH CONTRAST CLINICAL INFORMATION: Perforated ulcer, abdominal drainage COMPARISON: CT abdomen and pelvis 08/30/2023 TECHNIQUE: Multidetector volumetric images were obtained from the superior aspect of the liver through the pubic symphysis following administration 85 mL of Omnipaque 350 intravenous contrast. Sagittal and coronal reformatted images were obtained on the technologist's workstation. Oral contrast: Yes This CT examination was performed using dose optimization techniques as appropriate, variously including the following: *Automated exposure control *Adjustment of mA and/or kV according to patient size (this includes techniques or standardized protocols for targeted exams where dose is matched to indication/reason for exam; i.e. extremities or head) *Use of iterative reconstruction technique DLP: 653 mGy-cm FINDINGS: LUNG BASES: Increased trace left knee trace right pleural effusions. Coronary artery calcification is present. ABDOMINAL AND PELVIC WALL: Midline ventral surgical scarring. Again noted is a complex rim-enhancing fluid collection with foci of gas in the region of the umbilicus measuring at least 6 cm increased from prior previously 4 cm, suspicious for abscess, with surrounding soft tissue thickening. This is contiguous with what was previously described as a bowel like structure tracking intraperitoneally along the left ventral abdominal wall which is favored to reflect a rim-enhancing thick-walled collection containing gas, feculent material and trace fluid. The collection tracks along the left lower quadrant ventral abdominal wall communicating with the skin surface and intraperitoneal component of the collection is inseparable from a loop of small bowel and sigmoid colon, with several additional smaller tracts between loops of small bowel in the collection and given the feculent material within the collection findings are suspicious for a complex enterocutaneous fistula. There is no definite enteric contrast within the collection. Moderate diffuse subcutaneous edema. LIVER AND BILIARY TREE: Focal fat along the falciform ligament. Few subcentimeter hepatic hypodensities too small to characterize. GALLBLADDER: Unremarkable. PANCREAS: Unremarkable. SPLEEN: Unremarkable. ADRENAL GLANDS: Unremarkable. KIDNEYS AND URETERS: Unremarkable. GASTROINTESTINAL TRACT: Findings regarding the enterocutaneous fistula are as detailed above. Postsurgical changes of Pamela-en-Y gastric bypass. Colonic diverticulosis without evidence of diverticulitis. Small bowel surgical anastomosis in the left hemiabdomen. No findings to suggest appendicitis. No extraluminal air. VASCULAR: Unremarkable. LYMPH NODES/PERITONEUM: No lymphadenopathy. FREE FLUID: None. BLADDER: Unremarkable. PELVIC VISCERA: Uterus is atrophic or partially surgically absent. OSSEOUS STRUCTURES: Status post L3-L4 posterior spinal fusion. CT/CT abdomen pelvis w IV con IMPRESSION: 1. Again noted is a complex rim-enhancing fluid collection with foci of gas in the region of the umbilicus measuring at least 6 cm increased from prior, suspicious for abscess, with surrounding soft tissue thickening. This is contiguous with what was previously described as a bowel like structure tracking intraperitoneally along the left ventral abdominal wall which is favored to reflect a rim-enhancing thick-walled collection containing gas, feculent material and trace fluid, suggesting an additional abscess. 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 2. Increased trace left knee trace right pleural effusions. 3. Moderate diffuse subcutaneous edema. This exam was submitted to the interpreting radiologist for interpretation on 09/04/2023 10:10 AM.
--- NOTE | ~2023-08-29 | CT_ITS ---
EXAMINATION: CT ABDOMEN AND PELVIS WITH CONTRAST CLINICAL INFORMATION: Pain and tenderness. Postop. COMPARISON: 06/07/2023 TECHNIQUE: Multidetector volumetric images were obtained from the superior aspect of the liver through the pubic symphysis following administration 85 mL of Omnipaque 350 intravenous contrast. Sagittal and coronal reformatted images were obtained on the technologist's workstation. Oral contrast: No This CT examination was performed using dose optimization techniques as appropriate, variously including the following: *Automated exposure control *Adjustment of mA and/or kV according to patient size (this includes techniques or standardized protocols for targeted exams where dose is matched to indication/reason for exam; i.e. extremities or head) *Use of iterative reconstruction technique DLP: 1249 mGy-cm FINDINGS: LUNG BASES: The visualized lung bases are unremarkable. LIVER, GALLBLADDER, AND BILIARY TREE: The liver is normal in size, shape, and attenuation. No focal hepatic lesion or biliary ductal dilatation is present. The gallbladder is unremarkable with no evidence of radiopaque gallstones, gallbladder wall thickening, or obvious pericholecystic inflammatory changes. PANCREAS: Unremarkable. SPLEEN: Unremarkable. ADRENAL GLANDS: Unremarkable. KIDNEYS AND URETERS: The kidneys are normal in size, shape, and attenuation. No hydronephrosis, hydroureter, or calculi seen. No perinephric stranding. BLADDER: Unremarkable. GASTROINTESTINAL TRACT: There is retained stool. The appendix is visualized and is within normal limits. Gastric surgical clips are noted. There is no evidence for bowel obstruction. ABDOMINAL WALL: Umbilical surgical clips are noted. There is an umbilical region collection associated with the abdominal wall musculature measuring 3.2 cm x 2.2 x 6 cm associated with some air lucencies. There is a bowel-like structure along the left mid abdominal wall at the level of the umbilicus extending towards the abdominal cavity. LYMPH NODES: Normal. VASCULAR: Unremarkable. PELVIC VISCERA: Unremarkable. OSSEOUS STRUCTURES: Unremarkable. CT/CT abdomen pelvis w IV con IMPRESSION: 1. There is an umbilical region collection associated with the abdominal wall musculature measuring 3.2 cm x 2.2 x 6 cm associated with some air lucencies. This possibly a postoperative collection. An abscess could have this appearance. Correlation is needed. 2. There is a bowel-like structure along the left mid abdominal wall at the level of the umbilicus extending towards the abdominal cavity. This may be related to an ostomy. Developing fistula is considered if there is no ostomy in this region. 3. There is L3-L4 posterior fusion. There is diffuse thoracolumbar degenerative change. Fleischner guidelines were followed.
[2023-08-29 23:29] VITALS: BP 102/66; PULSE 72; O2SAT 98; BMI 30.8
--- NOTE | 2023-08-29 23:32 | ED.GENADULT ---
HPI - General Adult General Chief complaint: Abdominal Pain Stated complaint: abd pain and fall History of Present Illness ED Provider: Jose FLORES narrative: The patient is a 62-year-old woman who comes to the hospital for abdominal pain. The patient has a history of pulmonary emboli and is on anticoagulation with apixaban. She has a history of a remote sleeve gastrectomy and hysterectomy. Patient has had a number of medical issues recently. On May 30 she had spine surgery with Dr. Cat. She had an L3-L4 diskectomy, arthrodesis and implantation cage and L3 for posterior fusion. Postoperatively she developed abdominal pain and was found to have a perforated ulcer at a Pamela-en-Y anastomosis. She went to the operating room with Dr. Hernandez. She was briefly in the intensive care unit postoperatively. She was discharged on June 10. More recently the patient was found to have an abdominal wall abscess and 6 days ago had outpatient surgery for drainage of an abdominal wall abscess. She says that she was prescribed an antibiotic that she has been taking 2 times a day since the surgery. She does not know the name of the antibiotic. Yesterday the patient felt unwell. She felt dizzy and nauseated and vomited. Last night (or possibly very early this morning) she had a syncopal episode in her kitchen and fell to the ground. Her was able to help her up and she went to bed. During the day on Wednesday she had abdominal pain that she hoped would go away but ultimately this evening she called an ambulance and was brought to the hospital. No definite fever. The patient says that she lost consciousness when she had her syncopal episode last night or early this morning. She does not know if she hit her head. She has no neck pain or pain with moving her neck. She does have a headache. Patient says she is developed some urinary discomfort over the last couple of days. Patient takes chronic narcotics. She receives 112 tablets of oxycodone/acetaminophen 5/325 (Percocet) every 28 days (4 tablets per day). Related Data Home Medications ?Medication ?Instructions ?Recorded ?Confirmed albuterol sulfate 90 mcg/actuation 2 puff inhalation Q6H PRN 04/28/23 08/19/23 aerosol inhaler (Ventolin HFA) Shortness Of Breath budesonide-formoterol HFA 160 2 puff inhalation BID 04/28/23 08/19/23 mcg-4.5 mcg/actuation aerosol inhaler (Symbicort) bupropion HCl 100 mg tablet,12 hr 100 mg PO QAM 04/28/23 08/19/23 sustained-release cbyqbfomsw-qusampqngmaro-eycigxay 1 tab PO Q6H PRN pain 04/28/23 08/19/23 50 mg-325 mg-40 mg tablet clonazepam 1 mg tablet 1 mg PO TID 04/28/23 08/19/23 furosemide 40 mg tablet 20 mg PO DAILY 04/28/23 08/19/23 gabapentin 800 mg tablet 800 mg PO BID 04/28/23 08/19/23 hydroxyzine HCl 10 mg tablet 10 mg PO TID PRN Anxiety 04/28/23 08/19/23 lorazepam 1 mg tablet 1 mg PO TID 04/28/23 08/19/23 melatonin 10 mg-lemon balm leaf 1 tab PO BEDTIME 04/28/23 08/19/23 extract 1 mg tablet metoprolol tartrate 25 mg tablet 25 mg PO DAILY 04/28/23 08/19/23 pramipexole 0.25 mg tablet 0.25 mg PO DAILY 04/28/23 08/19/23 pregabalin 150 mg capsule 150 mg PO BID 04/28/23 08/19/23 topiramate 100 mg tablet 100 mg PO BID 04/28/23 08/19/23 trazodone 100 mg tablet 300 mg PO BEDTIME 04/28/23 08/19/23 vortioxetine 20 mg tablet 20 mg PO DAILY 04/28/23 08/19/23 (Trintellix) lactulose 10 gram/15 mL oral 15 ml PO QAM 04/29/23 08/19/23 solution pantoprazole 40 mg tablet,delayed 40 mg PO DAILY 04/29/23 08/19/23 release apixaban 5 mg tablet (Eliquis) 5 mg PO BID 07/22/23 08/19/23 atorvastatin 40 mg tablet 40 mg PO DAILY 07/22/23 08/19/23 Previous Rx's ?Medication ?Instructions ?Recorded omeprazole 20 mg capsule,delayed 20 mg PO DAILY #30 caps 06/11/23 release walker (Ultra-Light Rollator misc) #1 ea 06/11/23 1/4 inch plain packing #1 ea 07/23/23 2 inch cloth tape #1 07/23/23 4x4 sterile gauze #1 07/23/23 non-adherent bandage 5 X 9 #30 07/23/23 (Curity Abdominal Pad) cane #1 08/19/23 levofloxacin 500 mg tablet 500 mg PO DAILY 10 days #10 tabs 08/23/23 oxycodone 5 mg tablet 5 mg PO Q6H PRN pain (scale score 08/23/23 7-10) #15 tabs Allergies Allergy/AdvReac Type Severity Reaction Status Date / Time cephalexin [From Keflex] Allergy Intermediate Swelling Verified 08/29/23 23:35 doxycycline Allergy Intermediate Hives Verified 08/29/23 23:35 glipizide Allergy Intermediate Rash Verified 08/29/23 23:35 metformin Allergy Intermediate Itching Verified 08/29/23 23:35 morphine Allergy Intermediate Nausea and Verified 08/29/23 23:35 Vomiting/ineffective ropinirole [From Requip] Allergy Intermediate Nausea and Verified 08/29/23 23:35 Vomiting CLARITZA Inhibitors AdvReac Intermediate Cough Verified 08/29/23 23:35 Review of Systems Review of Systems: Yes all other systems are reviewed and are negative [facility] Past Medical History Medical History (Updated 08/30/23 @ 02:21 by Jonathan Garcia MD) Physical deconditioning Arthritis GERD (gastroesophageal reflux disease) Depression Polysubstance abuse Osteoarthritis Sleep apnea Elevated cholesterol Bipolar 1 disorder RLS (restless legs syndrome) Asthma HTN (hypertension) Pulmonary embolism Peripheral neuropathy Diabetes Spondylolisthesis, lumbar region Surgical History History of spinal surgery (05/31/23) History of Pamela-en-Y gastric bypass (~03/2023) Hx of exploratory laparotomy (06/03/23) H/O colonoscopy History of total right knee replacement Hx of tonsillectomy Hx of tubal ligation Hx of hysterectomy History of sleeve gastrectomy Social History Social History Household Members: Spouse Housing: Apartment Are you a primary career development coordinator/teacher to a significant other at home: No Do you presently have visiting nurse or other home services: Yes ([facility] 3 x week dressing changes) Comment: aware of trip hazard Patient Tobacco Use Status: Never used Tobacco Advance Directives: No Advance Directives Information Provided: Yes Patient : No service: No Physical Exam ED Vital Signs: Vital Signs - 24 hr 08/29/23 23:37 Temperature 98.1 F Pulse Rate 69 Respiratory Rate 16 Blood Pressure 106/58 L Pulse Oximetry 97 Oxygen Delivery Method Room Air BMI result Body Mass Index 30.8 Const Other: The patient is a chronically ill-appearing 62-year-old. She is awake and alert with a normal mental status. She looks mildly ill. HENMT Other: Face is symmetrical. Mucous membranes are moist. Eyes Other: Pupils are round equal, extraocular movements are intact, no scleral icterus Neck Other: No JVD, neck is supple. No posterior midline C-spine tenderness. No pain with range of motion of the neck. The neck is clinically clear. Resp Effort & Inspection: normal respiratory effort Auscultation: clear to auscultation bilaterally Cardio Rate: regular rate Rhythm: regular rhythm Heart sounds: S1 normal heart sound present and S2 normal heart sound present GI Other: The patient had a large dressing on her midabdomen. This was taken down. She has a midline surgical scar closed with enio. In the center of the scar near the umbilicus there was some slight dehiscence with purulent drainage. The patient's abdomen is quite diffusely tender. Skin Other: Skin is dry and unremarkable. Neuro Other: The patient is awake, alert, oriented, appropriate. Cranial nerves 2-12 are grossly intact. She moves her extremities symmetrically. She seems generally deconditioned but has no focal finding. Extrem Other: No peripheral edema. No calf swelling or tenderness. Medications Administered Discontinued Medications Generic Name Dose Route Start Last Admin Trade Name Freq PRN Reason Stop Dose Admin Sodium Chloride 1,000 mls @ 999 mls/hr 08/29/23 23:45 08/30/23 00:10 Ns IV 08/30/23 00:45 999 mls/hr .Q1H1M MIKE Administration Magnesium Sulfate 2 gm in 50 mls @ 150 mls/hr 08/30/23 00:52 08/30/23 01:42 Magnesium Sulfate/H2o IV 08/30/23 01:11 150 mls/hr ONCE ONE Administration Iohexol 85 ml 08/30/23 01:16 08/30/23 01:16 Iohexol 350 Mg/Ml 100 Ml Infus..Btl IV 08/30/23 01:17 85 ml ONCE ONE Administration Morphine Sulfate 4 mg 08/29/23 23:58 08/30/23 00:10 Morphine Sulfate 4 Mg/Ml Cartridge IVPUSH 08/29/23 23:59 4 mg ONCE ONE Administration Protocol Morphine Sulfate 4 mg 08/30/23 01:05 08/30/23 01:42 Morphine Sulfate 4 Mg/Ml Cartridge IVPUSH 08/30/23 01:06 4 mg ONCE ONE Administration Protocol Medical Decision Making Medical Decision Making [facility] Narrative: The patient is a 62-year-old female who was on anticoagulation who has had recent spine surgery followed by emergency abdominal surgery for a perforated ulcer. One week ago she had another surgery as an outpatient because of an abdominal wall abscess that was apparent a couple of months after her emergency surgery. She believes she has been on an antibiotic for the last week since her most recent surgery. She has been feeling worse than usual over the last 2 days. She has had more pain in the region of her abdominal wound. She has also developed some urinary discomfort. Here her rectal temperature is normal, her white count is normal, CRP not markedly abnormal. There is some minimal dehiscence in the center of her midline abdominal wound. There is some purulent drainage. A CT scan has been done an reading is pending. The patient also has some white cells in her urine and she reports some urinary discomfort that developed over the last couple of days. At the end of my shift I am signing out the patient to the oncoming emergency physician pending the results of the CT scan. I have reviewed the image and suspect there is probably still some residual degree of abdominal wound fluid collection which may be an abscess. However the patient does not seem septic. She is not febrile. She does not have an elevated white count and her CRP is only minimally elevated. Lab Data 08/30/23 00:02 08/30/23 00:02 Labs: Lab Results 08/30/23 08/30/23 08/30/23 Range/Units 00:00 00:02 00:20 WBC 6.2 (4.8-10.8) X10*3/uL RBC 3.28 L (4.20-5.50) X10*6/uL Hgb 9.5 L (12.0-16.0) g/dl Hct 29.7 L (37.0-47.0) % MCV 90.5 (80.0-98.0) fL MCH 29.0 (27.0-33.0) pg MCHC 32.0 (31.0-35.0) g/dl RDW 17.0 H (11.0-16.0) % Plt Count 210 (160-400) X10*3/uL MPV 12.0 (9.4-12.3) fL Immature Gran % (Auto) 0.3 (0.0-0.4) % Neut % (Auto) 57.2 (45-73) % Lymph % (Auto) 31.4 (20-40) % [place] % (Auto) 6.6 (2-11) % Eos % (Auto) 4.2 H (0-4) % Baso % (Auto) 0.3 (0-2) % Lymph # (Auto) 2.0 (1.2-4.9) X10*3/uL [place] # (Auto) 0.4 (0.1-1.2) X10*3/uL Eos # (Auto) 0.3 (0.0-0.4) X10*3/uL Baso # (Auto) 0.0 (0.0-0.2) X10*3/uL Abs Immat Gran (auto) 0.02 (0.00-0.03) X10*3/uL Absolute Neuts (auto) 3.6 (2.0-8.3) x10*3/uL Absolute Nucleated RBC 0.000 (0.0-0.012) X10*3/uL Nucleated RBC % (auto) 0.0 (0.0-0.2) /100WBC Hold Blue Top SEE NOTE Sodium 149 H (135-145) mmol/L Potassium 3.1 L (3.3-5.1) mmol/L Chloride 115 H (96-108) mmol/L Carbon Dioxide 22 (22-29) mmol/L Anion Gap 15 (12-20) BUN 7 L (9-16) mg/dL Creatinine 0.84 (0.5-1.4) mg/dL Estim Creat Clear Calc 74.2 Estimated GFR > 60 Random Glucose 138 H (60-115) mg/dL Lactic Acid 1.2 (0.5-2.0) mmol/L Calcium 8.0 L D (8.4-10.2) mg/dL Magnesium 1.4 L* (1.6-2.6) mg/dL Total Bilirubin 0.3 (0.0-1.0) mg/dL Direct Bilirubin 0.1 (0.0-0.5) mg/dL AST 9 (5-31) U/L ALT 7 (0-31) U/L Alkaline Phosphatase 52 (39-117) U/L Troponin I High Sens < 2.7 D (<3.5-17.0) ng/L C-Reactive Protein 0.91 H (< or = 0.50) mg/dL B-Natriuretic Peptide 79 (<100) pg/mL Total Protein 5.2 L (6.5-8.0) g/dL Albumin 2.8 L (3.5-5.0) g/dL Lipase 15 (8-78) U/L Urine Color Urine Appearance Urine pH (5.0-9.0) Ur Specific [place] (1.005-1.025) Urine Protein (Neg-Trace) mg/dL Urine Glucose (UA) (Negative) mg/dL Urine Ketones (Negative) mg/dL Urine Blood (Negative) Urine Nitrite (Negative) Ur Leukocyte Esterase (Negative) Urine RBC (0-2) /HPF Urine WBC (0-5) /HPF Ur Squamous Epith Cells (0-2) /HPF Urine Bacteria (None Seen) Hyaline Casts (0-2) /LPF Influenza Type A (PCR) NEGATIVE (Negative) Influenza Type B (PCR) NEGATIVE (Negative) RSV RNA Qual (PCR) NEGATIVE (Negative) SARS-CoV-2 RNA (RT-PCR) NEGATIVE (Negative) 08/30/23 Range/Units 01:40 WBC (4.8-10.8) X10*3/uL RBC (4.20-5.50) X10*6/uL Hgb (12.0-16.0) g/dl Hct (37.0-47.0) % MCV (80.0-98.0) fL MCH (27.0-33.0) pg MCHC (31.0-35.0) g/dl RDW (11.0-16.0) % Plt Count (160-400) X10*3/uL MPV (9.4-12.3) fL Immature Gran % (Auto) (0.0-0.4) % Neut % (Auto) (45-73) % Lymph % (Auto) (20-40) % [place] % (Auto) (2-11) % Eos % (Auto) (0-4) % Baso % (Auto) (0-2) % Lymph # (Auto) (1.2-4.9) X10*3/uL [place] # (Auto) (0.1-1.2) X10*3/uL Eos # (Auto) (0.0-0.4) X10*3/uL Baso # (Auto) (0.0-0.2) X10*3/uL Abs Immat Gran (auto) (0.00-0.03) X10*3/uL Absolute Neuts (auto) (2.0-8.3) x10*3/uL Absolute Nucleated RBC (0.0-0.012) X10*3/uL Nucleated RBC % (auto) (0.0-0.2) /100WBC Hold Blue Top Sodium (135-145) mmol/L Potassium (3.3-5.1) mmol/L Chloride (96-108) mmol/L Carbon Dioxide (22-29) mmol/L Anion Gap (12-20) BUN (9-16) mg/dL Creatinine (0.5-1.4) mg/dL Estim Creat Clear Calc Estimated GFR Random Glucose (60-115) mg/dL Lactic Acid (0.5-2.0) mmol/L Calcium (8.4-10.2) mg/dL Magnesium (1.6-2.6) mg/dL Total Bilirubin (0.0-1.0) mg/dL Direct Bilirubin (0.0-0.5) mg/dL AST (5-31) U/L ALT (0-31) U/L Alkaline Phosphatase (39-117) U/L Troponin I High Sens (<3.5-17.0) ng/L C-Reactive Protein (< or = 0.50) mg/dL B-Natriuretic Peptide (<100) pg/mL Total Protein (6.5-8.0) g/dL Albumin (3.5-5.0) g/dL Lipase (8-78) U/L Urine Color Yellow Urine Appearance Clear Urine pH 5.5 (5.0-9.0) Ur Specific [place] 1.025 (1.005-1.025) Urine Protein Negative (Neg-Trace) mg/dL Urine Glucose (UA) Negative (Negative) mg/dL Urine Ketones Negative (Negative) mg/dL Urine Blood Negative (Negative) Urine Nitrite Negative (Negative) Ur Leukocyte Esterase Moderate (2+) H (Negative) Urine RBC 0-2 (0-2) /HPF Urine WBC 21-50 H (0-5) /HPF Ur Squamous Epith Cells 0-2 (0-2) /HPF Urine Bacteria None Seen (None Seen) Hyaline Casts 0-2 (0-2) /LPF Influenza Type A (PCR) (Negative) Influenza Type B (PCR) (Negative) RSV RNA Qual (PCR) (Negative) SARS-CoV-2 RNA (RT-PCR) (Negative) Independent Interpretation I performed an independent interpretation of an: EKG Interpretation: EKG at 02/08/1999 shows normal sinus rhythm at 64 beats per minute. No definite acute ischemic changes. Discharge Plan Discharge Clinical Impression: Abdominal pain Patient Disposition: Still a Patient Prescriptions: No Action (DME) 1/4 inch plain packing 1 bottle See Rx Instructions .Route .MEDSUPPLY Qty: 1 0RF Rx Instructions: As directed (DME) 4x4 sterile gauze 1 sleeve See Rx Instructions .Route .MEDSUPPLY Qty: 1 0RF Rx Instructions: As directed (DME) Curity Abdominal Pad 5 X 9 bandage See Rx Instructions .ROUTE .MEDSUPPLY Qty: 30 0RF Rx Instructions: As directed (DME) 2 inch cloth tape 1 roll See Rx Instructions .Route .MEDSUPPLY Qty: 1 0RF Rx Instructions: As directed furosemide 40 mg tablet 20 mg PO DAILY clonazepam 1 mg tablet 1 mg PO TID bupropion HCl 100 mg tablet sustained-release 12 hr 100 mg PO QAM tctzneqzyx-sycpjubwxoqkf-imbx 50-325-40 mg tablet 1 tab PO Q6H PRN (Reason: pain) gabapentin 800 mg tablet 800 mg PO BID trazodone 100 mg tablet 300 mg PO BEDTIME pramipexole 0.25 mg tablet 0.25 mg PO DAILY lorazepam 1 mg tablet 1 mg PO TID albuterol sulfate [Ventolin HFA] 90 mcg/actuation Hfa Aerosol Inhaler 2 puff INHALATION Q6H PRN (Reason: Shortness Of Breath) hydroxyzine HCl 10 mg tablet 10 mg PO TID PRN (Reason: Anxiety) topiramate 100 mg tablet 100 mg PO BID metoprolol tartrate 25 mg Tablet 25 mg PO DAILY pregabalin 150 mg capsule 150 mg PO BID budesonide-formoterol [Symbicort] 160-4.5 mcg/actuation HFA aerosol inhaler 2 puff inhalation BID Trintellix 20 mg tablet 20 mg PO DAILY melatonin-lemon balm leaf extr 10-1 mg tablet 1 tab PO BEDTIME lactulose 10 gram/15 mL solution 15 ml PO QAM pantoprazole 40 mg tablet,delayed release (DR/EC) 40 mg PO DAILY omeprazole 20 mg capsule,delayed release(DR/EC) 20 mg PO DAILY Qty: 30 0RF (DME) Ultra-Light Rollator Misc See Rx Instructions .Route Qty: 1 0RF Rx Instructions: As directed oxycodone 5 mg tablet 5 mg PO Q6H PRN (Reason: pain (scale score 7-10)) Qty: 15 0RF Rx Instructions: Partial Fill upon patient request. levofloxacin 500 mg tablet 500 mg PO DAILY 10 Days Qty: 10 0RF atorvastatin 40 mg tablet 40 mg PO DAILY Eliquis 5 mg tablet 5 mg PO BID (DME) cane to fit See Rx Instructions .Route .MEDSUPPLY Qty: 1 0RF Rx Instructions: As directed Print Language: Japanese
[2023-08-29 23:37] VITALS: BP 106/58; PULSE 69; RESP 16; TEMP 36.7; O2SAT 97
--- NOTE | 2023-08-29 23:45 | ECG_ITS ---
Test Reason : ABD PAIN Blood Pressure : / mmHG Vent. Rate : 064 BPM Atrial Rate : 064 BPM P-R Int : 134 ms QRS Dur : 080 ms QT Int : 460 ms P-R-T Axes : 051 -08 020 degrees QTc Int : 474 ms Normal sinus rhythm Cannot rule out Anterior infarct , age undetermined Abnormal ECG When compared with ECG of 19-JUL-2023 16:50, No significant change was found Referred By: Jonathan Garcia Electronically Signed By:GEOFF ALVAREZ
[2023-08-30] VITALS (10 sets, daily range): BP systolic 99–126; BP diastolic 54–76; PULSE 52–62; RESP 14–18; TEMP 36–36.7; O2SAT 96–99; BMI 31.3
[2023-08-30] MEDS: Morphine Sulfate 4 MG/ML CARTRIDGE IVPUSH ×4 (00:10→03:53)
[2023-08-30] MEDS: 0.9 % Sodium Chloride 1,000 ML 999 ML IV (00:10)
[2023-08-30 00:19] LABS: MANUAL DIFF FLAG NO
[2023-08-30 00:22] LABS: Basophils Percent Auto 0.3 % (0-2); Eosinophils Absolute Auto 0.3 X10*3/uL (0.0-0.4); Eosinophils Percent Auto 4.2 % (0-4); Hematocrit 29.7 % (37.0-47.0); Hemoglobin 9.5 g/dl (12.0-16.0); Imm Gran Abs Auto 0.02 X10*3/uL (0.00-0.03); Imm Gran Pct Auto 0.3 % (0.0-0.4); Lymphocytes Percent Auto 31.4 % (20-40); Mean Corpuscular Volume 90.5 fL (80.0-98.0); Monocytes Absolute Auto 0.4 X10*3/uL (0.1-1.2); Monocytes Percent Auto 6.6 % (2-11); Neutrophils Absolute Auto 3.6 x10*3/uL (2.0-8.3); Neutrophils Percent Auto 57.2 % (45-73); Platelet Count 210 X10*3/uL (160-400); Red Blood Count 3.28 X10*6/uL (4.20-5.50); White Blood Count 6.2 X10*3/uL (4.8-10.8)
[2023-08-30 00:30] LABS: Lactic Acid 1.2 mmol/L (0.5-2.0)
[2023-08-30 00:39] LABS: Alanine Aminotransferase 7 U/L (0-31); Albumin Level 2.8 g/dL (3.5-5.0); Alkaline Phosphatase 52 U/L (39-117); Anion Gap 15 (12-20); Aspartate Amino Transferase 9 U/L (5-31); Bilirubin Direct 0.1 mg/dL (0.0-0.5); Bilirubin Total 0.3 mg/dL (0.0-1.0); Blood Urea Nitrogen 7 mg/dL (9-16); C Reactive Protein 0.91 mg/dL (< or = 0.50); Carbon Dioxide 22 mmol/L (22-29); Chloride 115 mmol/L (96-108); Creatinine Clr Calc Pharmacy 74.2; Estimated Glomerular Filt Rate > 60; Glucose Random 138 mg/dL (60-115); Lipase 15 U/L (8-78); Magnesium 1.4 mg/dL (1.6-2.6); Potassium 3.1 mmol/L (3.3-5.1); Sodium 149 mmol/L (135-145); Total Protein 5.2 g/dL (6.5-8.0)
[2023-08-30 00:44] LABS: B Type Natriuretic Peptide 79 pg/mL (<100)
[2023-08-30 00:45] LABS: Troponin-I High Sensitivity < 2.7 ng/L (<3.5-17.0)
[2023-08-30 01:04] LABS: Influenza A PCR NEGATIVE (Negative); Influenza B PCR NEGATIVE (Negative); Resp Syncy Virus RNA Qual PCR NEGATIVE (Negative); SARS COV2 PCR INHOUSE NEGATIVE (Negative)
[2023-08-30] MEDS: iohexoL 350 MG/ML 100 ML INFUS..BTL 85 ML IV (01:16)
[2023-08-30] MEDS: Magnesium Sulfate/H2O 2 GM/50 ML PIGGYBACK IV (01:42)
[2023-08-30 01:47] LABS: Appearance Urine Clear; Color Urine Yellow; Glucose Urine UA Negative (Negative); Leukocyte Esterase Urine Moderate (2+) (Negative); Nitrite Urine Negative (Negative); PH 5.5 (5.0-9.0); Specific Gravity - Urine 1.025 (1.005-1.025); UMIC TRIGGER UACC YES; Urine Blood Negative (Negative); Urine Ketones Negative (Negative); Urine Protein Negative (Neg-Trace)
[2023-08-30 01:49] LABS: Bacteria Urine None Seen (None Seen); Hyaline Casts Urine 0-2 /LPF (0-2); RBC Urine 0-2 /HPF (0-2); Squamous Epithelial Cell Urine 0-2 /HPF (0-2); UACC Culture Trigger YES; WBC Urine 21-50 /HPF (0-5)
[2023-08-30] MEDS: Potassium Chloride/H20 10 MEQ/100 ML PIGGYBACK 100 MEQ IV ×2 (02:38→08:34)
[2023-08-30] MEDS: levoFLOXacin/D5W 500 MG/100 ML PIGGYBACK 100 MG IV (03:55)
[2023-08-30] MEDS: HYDROmorphone HCl 0.5 MG/0.5 ML SYRINGE IVPUSH ×5 (04:52→20:11)
[2023-08-30] MEDS: vancomycin/NS 2,000 MG/500 ML PLAST..BAG 250 MG IV (04:52)
[2023-08-30 05:16] LABS: Alanine Aminotransferase 7 U/L (0-31); Albumin Level 2.5 g/dL (3.5-5.0); Alkaline Phosphatase 48 U/L (39-117); Anion Gap 11 (12-20); Aspartate Amino Transferase 10 U/L (5-31); Bilirubin Total 0.3 mg/dL (0.0-1.0); Blood Urea Nitrogen 6 mg/dL (9-16); Calcium 7.9 mg/dL (8.4-10.2); Carbon Dioxide 23 mmol/L (22-29); Chloride 116 mmol/L (96-108); Creatinine Clr Calc Pharmacy 85.4; Estimated Glomerular Filt Rate > 60; Glucose Random 107 mg/dL (60-115); Potassium 3.3 mmol/L (3.3-5.1); Sodium 147 mmol/L (135-145); Total Protein 4.8 g/dL (6.5-8.0)
--- NOTE | 2023-08-30 08:56 | P.HPGS_ITS ---
History of Present Illness History of Present Illness Date of Service: 08/30/23 <Osiris Koroma PA-C - Last Filed: 08/30/23 10:58> 08/30/23 <Danny Hernandez MD - Last Filed: 08/30/23 12:27> Chief complaint: Abdominal wall infection <Osiris Koroma PA-C - Last Filed: 08/30/23 10:58> Narrative: Claudette Stapleton is a 62 year old female with PMH significant for pulmonary emboli on apixaban, hx of lumbar fusion, hx of perforated marginal ulcer s/p ansley patch who presented to the ED for evaluation of severe abdominal pain. Following the exploratory laparotomy, ansley patch she has had a nonhealing wound of the abdominal wall secondary to foreign body reaction and underwent wound exploration, abdominal wall, debridement of granulation tissue and incision and drainage of abdominal wall abscess in the LUQ 5 days ago. She was prescribed post operative antibiotics which she has been taking. She reports on Wednesday, she felt unwell, dizzy and developed nausea with one episode of vomiting. She then had a syncopal episode in her kitchen and fell to the ground and hit her hip. Unclear if she hit her head. Later in the day Wednesday, she developed severe abdominal pain at the incision site and her abdomen felt tight and felt like something was wrong. She denied further nausea or vomiting. She therefore presented to the ED for evaluation. Work up included CBC, BMP, LFTs and was significant for no leukocytosis and hypokalemia/hypomagnesemia of 3.1 and 1.4. Normal lactic acid. CT abd/pelvis was obtained which showed an abdominal wall collection at the umbilicus with some air lucencies and bowel-like structure along the left mid abdominal wall extending towards the abdominal cavity, concerning for developing fistula. This morning, her pain is slightly improved. She reports normal PO intake following the surgery. She reports diarrhea. She denies fever, chills, dysuria, sick contacts. She has been passing flatus. <Osiris Koroma PA-C - Last Filed: 08/30/23 10:58> Review of Systems Constitutional: Constitutional: Denies chills and Denies fever(s) <Osiris Koroma PA-C - Last Filed: 08/30/23 10:58> Cardiovascular: Cardiovascular: Denies chest pain and Denies dyspnea <Osiris Koroma PA-C - Last Filed: 08/30/23 10:58> Respiratory: Respiratory: Denies dyspnea <Osiris Koroma PA-C - Last Filed: 08/30/23 10:58> Gastrointestinal: Gastrointestinal: Reports as per HPI, Denies hematochezia, Denies nausea and Denies hematemesis <Osiris Koroma PA-C - Last Filed: 08/30/23 10:58> [facility] Past Medical History Medical History: Medical History (Updated 08/30/23 @ 03:13 by Kristel Chu DO) Physical deconditioning Arthritis GERD (gastroesophageal reflux disease) Depression Polysubstance abuse Osteoarthritis Sleep apnea Elevated cholesterol Bipolar 1 disorder RLS (restless legs syndrome) Asthma HTN (hypertension) Pulmonary embolism Peripheral neuropathy Diabetes Spondylolisthesis, lumbar region <Osiris Koroma PA-C - Last Filed: 08/30/23 10:58> Surgical History Surgical History: Surgical History History of spinal surgery (05/31/23) History of Pamela-en-Y gastric bypass (~03/2023) Hx of exploratory laparotomy (06/03/23) H/O colonoscopy History of total right knee replacement Hx of tonsillectomy Hx of tubal ligation Hx of hysterectomy History of sleeve gastrectomy <JAIME Griffin Last Filed: 08/30/23 10:58> Social History Social History: Social History Household Members: Spouse Housing: Apartment Are you a primary child care education coordinator to a significant other at home: No Do you presently have visiting nurse or other home services: Yes Comment: aware of trip hazard Patient Tobacco Use Status: Never used Tobacco Smoked in Last 30 Days: No Patient Interested in Nicotine Replacement: No Patient Given Instructions on How to Stop Smoking: No Second Hand Smoke Exposure: No Use of substances other than those prescribed or required for medical reasons: No Currently Displaying Signs/Symptoms of Drug Intoxication Withdrawal: No Any prior treatment program specific to substance use: No Have you been hit, kicked, punched, or otherwise hurt by someone within the past year? If so, by whom?: No Do you feel safe in your current relationship?: Yes Is there a partner from a previous relationship who is making you feel unsafe now?: No Are you made to feel afraid or neglected: No Advance Directives: No Advance Directives Information Provided: Yes Advance Directives on File: No Do you have a plan to hurt others: No Plan Recently lost weight without trying: No Eating poorly because of decreased appetite: No Patient : No : No Poor oral hygiene: No service: No <Osiris Koroma PA-C - Last Filed: 08/30/23 10:58> Meds Allergies/Adverse reactions: Allergies Allergy/AdvReac Type Severity Reaction Status Date / Time cephalexin [From Keflex] Allergy Intermediate Swelling Verified 08/29/23 23:35 doxycycline Allergy Intermediate Hives Verified 08/29/23 23:35 glipizide Allergy Intermediate Rash Verified 08/29/23 23:35 metformin Allergy Intermediate Itching Verified 08/29/23 23:35 morphine Allergy Intermediate Nausea and Verified 08/29/23 23:35 Vomiting/ineffective ropinirole [From Requip] Allergy Intermediate Nausea and Verified 08/29/23 23:35 Vomiting CLARITZA Inhibitors AdvReac Intermediate Cough Verified 08/29/23 23:35 <Osiris Koroma PA-C - Last Filed: 08/30/23 10:58> Active Medications: Current Medications Acetaminophen (Acetaminophen 325 Mg Tablet) 650 mg PO Q6H PRN PRN Reason: Pain, Mild (Pain Scale 1-3), fever or headache Calcium Carbonate (Calcium Carbonate 750 Mg Tab.Chew) 750 mg PO Q4H PRN PRN Reason: Heartburn Hydromorphone HCl (Hydromorphone Hcl 0.5 Mg/0.5 Ml Syringe) 0.5 mg IVPUSH Q4H PRN; Protocol PRN Reason: Pain, Severe (Pain Scale 7-10) Last Admin: 08/30/23 08:11 Dose: 0.5 mg Levofloxacin (Levaquin) 500 mg in 100 mls @ 100 mls/hr IV Q24H MIKE Lactated Ringer's (Lr) 1,000 mls @ 100 mls/hr IVCONT .Q10H MIKE Potassium Chloride (Potassium Chloride/H20) 10 meq in 100 mls @ 100 mls/hr IV Q1H [facility] Stop: 08/30/23 09:29 Last Admin: 08/30/23 08:34 Dose: 100 mls/hr Magnesium Hydroxide (Milk Of Magnesia 30 Ml Oral.Susp) 30 ml PO DAILY PRN PRN Reason: Constipation Melatonin (Melatonin 3 Mg Tablet) 6 mg PO BEDTIME PRN PRN Reason: Insomnia Ondansetron HCl (Ondansetron Hcl 4 Mg/2 Ml Vial) 4 mg IVPUSH QID PRN PRN Reason: Nausea Oxycodone HCl (Oxycodone Hcl Immed Release 5 Mg Tablet) 5 mg PO Q6H PRN PRN Reason: Pain, Moderate(Pain Scale 4-6) Sodium Chloride (0.9 % Sodium Chloride Flush 3 Ml Syringe) 3 ml IVFLUSH QSHIFT [facility] <Osiris Koroma PA-C - Last Filed: 08/30/23 10:58> Home medications: Home Medications ?Medication ?Instructions ?Recorded ?Confirmed ?Last Taken ?Type albuterol sulfate 90 mcg/actuation 2 puff inhalation Q6H PRN 04/28/23 08/30/23 Unknown History aerosol inhaler (Ventolin HFA) Shortness Of Breath budesonide-formoterol HFA 160 2 puff inhalation BID 04/28/23 08/30/23 08/29/23 History mcg-4.5 mcg/actuation aerosol inhaler (Symbicort) bupropion HCl 100 mg tablet,12 hr 100 mg PO QAM 04/28/23 08/30/23 08/29/23 History sustained-release wsynnyieeg-ckqdhutzecsey-kirbjbrz 1 tab PO Q6H PRN pain 04/28/23 08/30/23 Unknown History 50 mg-325 mg-40 mg tablet clonazepam 1 mg tablet 1 mg PO DAILY 04/28/23 08/30/23 08/29/23 History furosemide 40 mg tablet 20 mg PO DAILY 04/28/23 08/30/23 08/29/23 History gabapentin 800 mg tablet 800 mg PO BID 04/28/23 08/30/23 08/29/23 History hydroxyzine HCl 10 mg tablet 10 mg PO DAILY PRN Anxiety 04/28/23 08/30/23 08/23/23 History lorazepam 1 mg tablet 1 mg PO BID 04/28/23 08/30/23 08/29/23 History metoprolol tartrate 25 mg tablet 25 mg PO DAILY 04/28/23 08/30/23 08/29/23 History pramipexole 0.25 mg tablet 0.25 mg PO DAILY 04/28/23 08/30/23 08/29/23 History trazodone 100 mg tablet 300 mg PO BEDTIME 04/28/23 08/30/23 08/29/23 History vortioxetine 20 mg tablet 20 mg PO DAILY 04/28/23 08/30/23 08/29/23 History (Trintellix) apixaban 5 mg tablet (Eliquis) 5 mg PO BID 07/22/23 08/30/23 08/29/23 History atorvastatin 40 mg tablet 40 mg PO DAILY 07/22/23 08/30/23 08/29/23 History amlodipine 5 mg tablet 5 mg PO DAILY 08/30/23 08/30/23 08/29/23 History cholecalciferol (vitamin D3) 50 50 mcg PO DAILY 08/30/23 08/30/23 08/29/23 History mcg (2,000 unit) capsule clonazepam 1 mg tablet 2 mg PO DAILY@1800 08/30/23 08/30/23 08/29/23 History lurasidone 120 mg tablet 120 mg PO DAILY 08/30/23 08/30/23 08/29/23 History melatonin 10 mg tablet 20 mg PO BEDTIME 08/30/23 08/30/23 08/29/23 History oxycodone-acetaminophen 5 mg-325 1 tab PO QID 08/30/23 08/30/23 08/29/23 History mg tablet pregabalin 200 mg capsule 200 mg PO BID 08/30/23 08/30/23 08/29/23 History <Osiris Koroma PA-C - Last Filed: 08/30/23 10:58> Physical Exam Vital Signs: Vital Signs: Last Vital Signs Temp 98.1 F 08/30/23 08:38 Pulse 54 08/30/23 08:38 Resp 14 08/30/23 08:38 BP 111/62 08/30/23 08:38 Pulse Ox 99 08/30/23 08:38 O2 Del Method Room Air 08/30/23 08:38 BMI result Body Mass Index 30.8 <JAIME Griffin Last Filed: 08/30/23 10:58> Const: General: comfortable, no acute distress and alert <JAIME Griffin Last Filed: 08/30/23 10:58> Orientation/consciousness: patient oriented x3 <JAIME Griffin Last Filed: 08/30/23 10:58> Resp: Effort & Inspection: normal respiratory effort <JAIME Griffin Last Filed: 08/30/23 10:58> Cardio: Rate: regular rate <JAIME Griffin Last Filed: 08/30/23 10:58> GI: Other: midline incision with intact enio, some serous drainage, no surrounding erythema, mild tenderness LUQ I&D site with some scant purulent drainage, no surrounding erythema or edema <Osiris Koroma JAIME Mccullough Last Filed: 08/30/23 10:58> Inspection: No distended <JAIME Griffin Last Filed: 08/30/23 10:58> Palpation (GI): Soft to palpation, Tenderness to palpation present (GI) and no guarding <JAIME Griffin Last Filed: 08/30/23 10:58> Percussion: Yes normal to percussion <Osiris Koroma JAIME Mccullough Last Filed: 08/30/23 10:58> Skin: General skin exam: no rashes or lesions noted <Osiris Koroma JAIME Mccullough Last Filed: 08/30/23 10:58> Neuro: General: patient oriented x3 and moves all extremities <Osiris Koroma JAIME Mccullough Last Filed: 08/30/23 10:58> Results Results Labs: Short CBC 08/30/23 Range/Units 00:02 WBC 6.2 (4.8-10.8) X10*3/uL Hgb 9.5 L (12.0-16.0) g/dl Hct 29.7 L (37.0-47.0) % Plt Count 210 (160-400) X10*3/uL BMP 08/30/23 08/30/23 00:02 04:34 Sodium 149 H 147 H Potassium 3.1 L 3.3 Chloride 115 H 116 H Carbon Dioxide 22 23 BUN 7 L 6 L Creatinine 0.84 0.73 Calcium 8.0 L D 7.9 L Liver Function 08/30/23 08/30/23 Range/Units 00:02 04:34 Total Bilirubin 0.3 0.3 (0.0-1.0) mg/dL Direct Bilirubin 0.1 (0.0-0.5) mg/dL AST 9 10 (5-31) U/L ALT 7 7 (0-31) U/L Alkaline Phosphatase 52 48 (39-117) U/L Albumin 2.8 L 2.5 L (3.5-5.0) g/dL Urine 08/30/23 Range/Units 01:40 Urine Color Yellow Urine Appearance Clear Urine pH 5.5 (5.0-9.0) Ur Specific [place] 1.025 (1.005-1.025) Urine Protein Negative (Neg-Trace) mg/dL Urine Glucose (UA) Negative (Negative) mg/dL <Osiris Koroma PA-C - Last Filed: 08/30/23 10:58> Abdomen CT scan report/results: report reviewed and image reviewed <Osiris Koroma PA-C - Last Filed: 08/30/23 10:58> Assessment and Plan (1) Abdominal pain: Qualifiers: Abdominal location: lower abdomen, unspecified Qualified Code(s): R10.30 - Lower abdominal pain, unspecified <Osiris Koroma PA-C - Last Filed: 08/30/23 10:58> Status: Acute <Osiris Koroma PA-C - Last Filed: 08/30/23 10:58> Claudette Stapleton is a 62 year old female with multiple medical comorbidities who is 5 days s/p wound exploration, abdominal wall, debridement of granulation tissue and incision and drainage of abdominal wall abscess in the LUQ for foreign body reaction of the abdominal wall following hx of perforated marginal ulcer s/p ansley patch now presenting with severe abdominal pain, syncopal episode. The patient was admitted to the surgical service for further treatment. The patient is overall clinically appearing well and the sharp abdominal pain may be related to the fall itself. CT scan reviewed- ?of developing fistula however I feel this coordinates with the LUQ I&D site which has nonenteric output. Will continue to monitor. Wound culture growing Streptococcus viridans, Klebsiella pneumoniae, Bacteroi caccae and she has been started on IV levaquin. The midline incision is clean appearing and has no overlying skin changes with mild drainage. Hospitalists service has been consulted for the syncopal episode. She has been started on IVF as her BP has been soft since arrival. ?Orthostatic hypotension. She reports normal PO intake but has had some diarrhea. Will therefore obtain C diff PCR. GI consult has also been requested for her hx of perforated ulcer as she has never had outpatient follow up. <Osiris Koroma PA-C - Last Filed: 08/30/23 10:58> Quality Stroke Does the patient have a stroke diagnosis?: No <Osiris Koroma PA-C - Last Filed: 08/30/23 10:58> VTE Prior VTE?: No <Osiris Koroma PA-C - Last Filed: 08/30/23 10:58> VTE Risk Level:: Surgical - moderate <Osiris Koroma PA-C - Last Filed: 08/30/23 10:58> VTE Device Contraindication: N/A - Device Ordered <Osiris Koroma PA-C - Last Filed: 08/30/23 10:58> VTE Drug Contraindication: N/A - Med Ordered <Osiris Koroma PA-C - Last Filed: 08/30/23 10:58> Procedures Date of Service Date of Service: 08/30/23 <Osiris Koroma PA-C - Last Filed: 08/30/23 10:58> 08/30/23 <Danny Hernandez MD - Last Filed: 08/30/23 12:27>
--- NOTE | 2023-08-30 09:15 | PHA.MEDREC ---
Pharmacy Consult ? Medication Reconciliation Pharmacy has completed the medication reconciliation. Spoke to patient and confirmed medication list. Confirmed with patient multiple times that she is still taking bupropion 100 mg daily, hydroxyzine 10 mg qam prn, metoprolol 25 mg daily and Trintellix 20 mg daily. She said she takes clonazepam 1 mg qam and 2 mg qpm AND lorazepam 1 mg bid, and melatonin 20 mg at bedtime. Patient said she has trouble sleeping (sometimes doesn't sleep for days) so she takes a lot of sleep medications. Patient said she does not take Ozempic, topiramate, pantoprazole nor lactulose. She still has 2 days left of levofloxacin to take.
[2023-08-30] MEDS: Lactated Ringers 1,000 ML 100 ML IVCONT ×2 (09:32→17:39)
--- NOTE | 2023-08-30 09:51 | MHC.CM.PN ---
IMM delivered. Patient lives in a home w/ spouse. Ambulates w/ a cane. Has grab bars, toilet riser, shower chair. Active w/ [facility] for SN. Return referral sent. PCP Kat Nevarez MD HCP on file and verified. DP: Goal is home resume services. Spouse to transport. CM will continue to follow.
--- NOTE | 2023-08-30 10:16 | MHC.CLN ---
NUTRITION PATIENT WITH HX OF GASTRIC SLEEVE AND GASTRIC BYPASS SURGERIES. ADDING ENSURE MAX PROTEIN TID. PROVIDES 450 KCALS, 90 G PROTEIN.
--- NOTE | 2023-08-30 11:34 | P.CONHOSP_ITS ---
History of Present Illness Data of Consult Service Date: 08/30/23 Requesting physician: Osiris Koroma Primary Care Provider: Kat Nevarez MD HPI Reason for consult: syncope 62-year-old female with history of moderate persistent asthma, hypertension, history of pulmonary embolism on Eliquis, [id number] type 2 diabetes, rubs/leg syndrome, bipolar disorder, peripheral neuropathy, lumbar spondylolisthesis, GERD, history of polysubstance abuse in remission admitted to general surgery for evaluation abdominal pain in a patient who is 5 days s/p wound exploration with abdominal wall debridement of granulation tissue and incision and drainage of the abdominal wall abscess in the left upper quadrant for foreign body reaction of the abdominal wall following history of perforated marginal ulcer s/p Ruben patch. Consult was placed to hospitalist service due to syncopal episode which patient reports occurred 2 days ago. The patient reports that she continues experiencing lightheadedness with ambulation. She states she was standing at her counter on Wednesday, felt lightheaded, and syncopized for an unclear period of time. The fall was unwitnessed and she is on blood thinners. Unclear if there was head strike. Denies any palpitations, visual changes, headache, shortness of breath, chest pain. Reviewing chart, patient is on multiple sedating medications including gabapentin 800 mg twice daily, Lyrica 200 mg twice daily, clonazepam 1 mg every morning and 2 mg in the evening along with lorazepam 1 mg twice daily. She is taking oxycodone 5mg QID. She is also taking 300 mg of trazodone at bedtime in addition to Latuda. Has had multiple falls recently but denies any syncopal episodes prior to Wednesday. She has had soft blood pressures since arrival, but no hypotension and antihypertensives are on hold. Orthostatic VS are negative. Review of Systems 2 Review of Systems: Yes all other systems are reviewed and are negative [facility] Medical History Physical deconditioning Arthritis GERD (gastroesophageal reflux disease) Depression Polysubstance abuse Osteoarthritis Sleep apnea Elevated cholesterol Bipolar 1 disorder RLS (restless legs syndrome) Asthma HTN (hypertension) Pulmonary embolism Peripheral neuropathy Diabetes Spondylolisthesis, lumbar region Surgical History History of spinal surgery (05/31/23) History of Pamela-en-Y gastric bypass (~03/2023) Hx of exploratory laparotomy (06/03/23) H/O colonoscopy History of total right knee replacement Hx of tonsillectomy Hx of tubal ligation Hx of hysterectomy History of sleeve gastrectomy Social History Household Members: Spouse Housing: Apartment Are you a primary companion caregiver to a significant other at home: No Do you presently have visiting nurse or other home services: Yes Comment: aware of trip hazard Patient Tobacco Use Status: Never used Tobacco Smoked in Last 30 Days: No Patient Interested in Nicotine Replacement: No Patient Given Instructions on How to Stop Smoking: No Second Hand Smoke Exposure: No Use of substances other than those prescribed or required for medical reasons: No Currently Displaying Signs/Symptoms of Drug Intoxication Withdrawal: No Any prior treatment program specific to substance use: No Have you been hit, kicked, punched, or otherwise hurt by someone within the past year? If so, by whom?: No Do you feel safe in your current relationship?: Yes Is there a partner from a previous relationship who is making you feel unsafe now?: No Are you made to feel afraid or neglected: No Advance Directives: No Advance Directives Information Provided: Yes Advance Directives on File: No Do you have a plan to hurt others: No Plan Recently lost weight without trying: No Eating poorly because of decreased appetite: No Patient : No : No Poor oral hygiene: No service: No Meds Allergies Allergy/AdvReac Type Severity Reaction Status Date / Time cephalexin [From Keflex] Allergy Intermediate Swelling Verified 08/29/23 23:35 doxycycline Allergy Intermediate Hives Verified 08/29/23 23:35 glipizide Allergy Intermediate Rash Verified 08/29/23 23:35 metformin Allergy Intermediate Itching Verified 08/29/23 23:35 morphine Allergy Intermediate Nausea and Verified 08/29/23 23:35 Vomiting/ineffective ropinirole [From Requip] Allergy Intermediate Nausea and Verified 08/29/23 23:35 Vomiting CLARITZA Inhibitors AdvReac Intermediate Cough Verified 08/29/23 23:35 Active Medications: Current Medications Acetaminophen (Acetaminophen 325 Mg Tablet) 650 mg PO Q6H PRN PRN Reason: Pain, Mild (Pain Scale 1-3), fever or headache Calcium Carbonate (Calcium Carbonate 750 Mg Tab.Chew) 750 mg PO Q4H PRN PRN Reason: Heartburn Fluconazole (Fluconazole 100 Mg Tablet) 100 mg PO DAILY [facility] Hydromorphone HCl (Hydromorphone Hcl 0.5 Mg/0.5 Ml Syringe) 0.5 mg IVPUSH Q4H PRN; Protocol PRN Reason: Pain, Severe (Pain Scale 7-10) Last Admin: 08/30/23 08:11 Dose: 0.5 mg Levofloxacin (Levaquin) 500 mg in 100 mls @ 100 mls/hr IV Q24H MIKE Lactated Ringer's (Lr) 1,000 mls @ 100 mls/hr IVCONT .Q10H [facility] Last Admin: 08/30/23 09:32 Dose: 100 mls/hr Magnesium Hydroxide (Milk Of Magnesia 30 Ml Oral.Susp) 30 ml PO DAILY PRN PRN Reason: Constipation Melatonin (Melatonin 3 Mg Tablet) 6 mg PO BEDTIME PRN PRN Reason: Insomnia Ondansetron HCl (Ondansetron Hcl 4 Mg/2 Ml Vial) 4 mg IVPUSH QID PRN PRN Reason: Nausea Oxycodone HCl (Oxycodone Hcl Immed Release 5 Mg Tablet) 5 mg PO Q6H PRN PRN Reason: Pain, Moderate(Pain Scale 4-6) Sodium Chloride (0.9 % Sodium Chloride Flush 3 Ml Syringe) 3 ml IVFLUSH QSHIFT [facility] Last Admin: 08/30/23 09:02 Dose: Not Given Home Medications ?Medication ?Instructions ?Recorded ?Confirmed ?Last Taken ?Type albuterol sulfate 90 mcg/actuation 2 puff inhalation Q6H PRN 04/28/23 08/30/23 Unknown History aerosol inhaler (Ventolin HFA) Shortness Of Breath budesonide-formoterol HFA 160 2 puff inhalation BID 04/28/23 08/30/23 08/29/23 History mcg-4.5 mcg/actuation aerosol inhaler (Symbicort) bupropion HCl 100 mg tablet,12 hr 100 mg PO QAM 04/28/23 08/30/23 08/29/23 History sustained-release acwwzkknpr-ahulyizgpgkhf-qdvtgsvw 1 tab PO Q6H PRN pain 04/28/23 08/30/23 Unknown History 50 mg-325 mg-40 mg tablet clonazepam 1 mg tablet 1 mg PO DAILY 04/28/23 08/30/23 08/29/23 History furosemide 40 mg tablet 20 mg PO DAILY 04/28/23 08/30/23 08/29/23 History gabapentin 800 mg tablet 800 mg PO BID 04/28/23 08/30/23 08/29/23 History hydroxyzine HCl 10 mg tablet 10 mg PO DAILY PRN Anxiety 04/28/23 08/30/23 08/23/23 History lorazepam 1 mg tablet 1 mg PO BID 04/28/23 08/30/23 08/29/23 History metoprolol tartrate 25 mg tablet 25 mg PO DAILY 04/28/23 08/30/23 08/29/23 History pramipexole 0.25 mg tablet 0.25 mg PO DAILY 04/28/23 08/30/23 08/29/23 History trazodone 100 mg tablet 300 mg PO BEDTIME 04/28/23 08/30/23 08/29/23 History vortioxetine 20 mg tablet 20 mg PO DAILY 04/28/23 08/30/23 08/29/23 History (Trintellix) apixaban 5 mg tablet (Eliquis) 5 mg PO BID 07/22/23 08/30/23 08/29/23 History atorvastatin 40 mg tablet 40 mg PO DAILY 07/22/23 08/30/23 08/29/23 History amlodipine 5 mg tablet 5 mg PO DAILY 08/30/23 08/30/23 08/29/23 History cholecalciferol (vitamin D3) 50 50 mcg PO DAILY 08/30/23 08/30/23 08/29/23 History mcg (2,000 unit) capsule clonazepam 1 mg tablet 2 mg PO DAILY@1800 08/30/23 08/30/23 08/29/23 History lurasidone 120 mg tablet 120 mg PO DAILY 08/30/23 08/30/23 08/29/23 History melatonin 10 mg tablet 20 mg PO BEDTIME 08/30/23 08/30/23 08/29/23 History oxycodone-acetaminophen 5 mg-325 1 tab PO QID 08/30/23 08/30/23 08/29/23 History mg tablet pregabalin 200 mg capsule 200 mg PO BID 08/30/23 08/30/23 08/29/23 History Physical Exam 2 Vital Signs and Narrative: Vital Signs: Last Vital Signs Temp 96.8 F 08/30/23 09:25 Pulse 54 08/30/23 09:25 Resp 16 08/30/23 09:25 BP 110/64 08/30/23 09:25 Pulse Ox 98 08/30/23 09:25 O2 Del Method Room Air 08/30/23 09:25 BMI result Body Mass Index 31.3 Constitutional - Awake and Alert, No apparent distress Eyes - PERRLA, EOMI Cardiovascular - S1S2, RRR, III/ systolic murmur, No edema Respiratory - Normal lung expansion, Normal respiratory effort, No respiratory distress, CTA bilaterally Extremities - no calf tenderness bilaterally, no swelling Skin - Warm/Dry Neurological - Alert & oriented x3, CN II-XII in tact, 5/5 strength BUE and BLE Psychological - Appropriate affect Results Labs 08/30/23 00:02 08/30/23 04:34 Labs: Laboratory Results - last 24 hr 08/30/23 08/30/23 08/30/23 00:00 00:02 00:20 MCV 90.5 MCH 29.0 MCHC 32.0 RDW 17.0 H Plt Count 210 MPV 12.0 Immature Gran % (Auto) 0.3 Neut % (Auto) 57.2 Lymph % (Auto) 31.4 [place] % (Auto) 6.6 Eos % (Auto) 4.2 H Baso % (Auto) 0.3 Lymph # (Auto) 2.0 [place] # (Auto) 0.4 Eos # (Auto) 0.3 Baso # (Auto) 0.0 Abs Immat Gran (auto) 0.02 Absolute Neuts (auto) 3.6 Absolute Nucleated RBC 0.000 Nucleated RBC % (auto) 0.0 Hold Blue Top SEE NOTE Anion Gap 15 Estim Creat Clear Calc 74.2 Estimated GFR > 60 Random Glucose 138 H Lactic Acid 1.2 Calcium 8.0 L D Magnesium 1.4 L* Total Bilirubin 0.3 Direct Bilirubin 0.1 AST 9 ALT 7 Alkaline Phosphatase 52 Troponin I High Sens < 2.7 D C-Reactive Protein 0.91 H B-Natriuretic Peptide 79 Total Protein 5.2 L Albumin 2.8 L Lipase 15 Urine Color Urine Appearance Urine pH Ur Specific [place] Urine Protein Urine Glucose (UA) Urine Ketones Urine Blood Urine Nitrite Ur Leukocyte Esterase Urine RBC Urine WBC Ur Squamous Epith Cells Urine Bacteria Hyaline Casts Influenza Type A (PCR) NEGATIVE Influenza Type B (PCR) NEGATIVE RSV RNA Qual (PCR) NEGATIVE SARS-CoV-2 RNA (RT-PCR) NEGATIVE 08/30/23 08/30/23 01:40 04:34 MCV MCH MCHC RDW Plt Count MPV Immature Gran % (Auto) Neut % (Auto) Lymph % (Auto) [place] % (Auto) Eos % (Auto) Baso % (Auto) Lymph # (Auto) [place] # (Auto) Eos # (Auto) Baso # (Auto) Abs Immat Gran (auto) Absolute Neuts (auto) Absolute Nucleated RBC Nucleated RBC % (auto) Hold Blue Top Anion Gap 11 L Estim Creat Clear Calc 85.4 Estimated GFR > 60 Random Glucose 107 Lactic Acid Calcium 7.9 L Magnesium Total Bilirubin 0.3 Direct Bilirubin AST 10 ALT 7 Alkaline Phosphatase 48 Troponin I High Sens C-Reactive Protein B-Natriuretic Peptide Total Protein 4.8 L Albumin 2.5 L Lipase Urine Color Yellow Urine Appearance Clear Urine pH 5.5 Ur Specific [place] 1.025 Urine Protein Negative Urine Glucose (UA) Negative Urine Ketones Negative Urine Blood Negative Urine Nitrite Negative Ur Leukocyte Esterase Moderate (2+) H Urine RBC 0-2 Urine WBC 21-50 H Ur Squamous Epith Cells 0-2 Urine Bacteria None Seen Hyaline Casts 0-2 Influenza Type A (PCR) Influenza Type B (PCR) RSV RNA Qual (PCR) SARS-CoV-2 RNA (RT-PCR) Imaging Radiologist's Impressions: Impressions Chest X-Ray 08/30/23 00:25 IMPRESSION: No acute cardiopulmonary process. Abdomen/Pelvis CT 08/30/23 00:55 IMPRESSION: 1. There is an umbilical region collection associated with the abdominal wall musculature measuring 3.2 cm x 2.2 x 6 cm associated with some air lucencies. This possibly a postoperative collection. An abscess could have this appearance. Correlation is needed. 2. There is a bowel-like structure along the left mid abdominal wall at the level of the umbilicus extending towards the abdominal cavity. This may be related to an ostomy. Developing fistula is considered if there is no ostomy in this region. 3. There is L3-L4 posterior fusion. There is diffuse thoracolumbar degenerative change. Fleischner guidelines were followed. Head CT 08/30/23 00:55 IMPRESSION: No acute intracranial pathology. Assessment and Plan (1) Abdominal wall fluid collections: Status: Acute (2) Polypharmacy: Status: Acute Plan 62-year-old female with history of moderate persistent asthma, hypertension, history of pulmonary embolism on Eliquis, [id number] type 2 diabetes, rubs/leg syndrome, bipolar disorder, peripheral neuropathy, lumbar spondylolisthesis, GERD, history of polysubstance abuse in remission admitted to general surgery for evaluation abdominal pain in a patient who is 5 days s/p wound exploration with abdominal wall debridement of granulation tissue and incision and drainage of the abdominal wall abscess in the left upper quadrant for foreign body reaction of the abdominal wall following history of perforated marginal ulcer s/p Ruben patch. Consult was placed to hospitalist service due to syncopal episode which patient reports occurred 2 days ago #Syncope -suspect due to polypharmacy: multiple sedating medications including gabapentin 800 mg twice daily, Lyrica 200 mg twice daily, clonazepam 1 mg every morning and 2 mg in the evening along with lorazepam 1 mg twice daily. She is taking oxycodone 5mg QID. She is also taking 300 mg of trazodone at bedtime in addition to Latuda. -call placed to patient's pcp to confirm if she should be taking gabapenting or lyrica- both noted to have been picked up on 08/08 and 08/09 on [employer], gabpentin most recently prescribed -for now hold lyrica. Decrease gabapentin to 300mg TID -Stop lorazepam. Continue clonazepam 1mg daily and decrease evening dose to 1mg -pain management per general surgery. Change oxycodone to prn, not scheduled -Pt does have slight systolic murmur, will check echo but less suspicious of severe valvular abnormality to be causing symptoms -Head Ct negative for acute intracranial abnormality. No focal neuro deficits -orthostatic vital signs negative -monitor on tele # hypertension -blood pressure is soft. Continue holding amlodipine, Lasix, metoprolol. Resume as blood pressure improves as appropriate # type 2 diabetes-diet controlled -change to diabetic diet -POC glucose, Admelog sliding scale # bipolar disorder -continue Latuda, trazodone. Continue/hold medications as above # GERD -PPI Thank you for this consult. We will continue following
[2023-08-30] MEDS: Fluconazole 100 MG TABLET PO (12:05)
[2023-08-30] MEDS: oxyCODONE HCl Immed Release 5 MG TABLET PO ×2 (13:51→18:56)
--- NOTE | 2023-08-30 15:50 | PC.NURSE ---
Pt medicated for pain with dilaudid 0.5mg and oxycodone with little effect. Dr Alex made aware. Iv tylenol ordered
[2023-08-30] MEDS: Acetaminophen 1,000 MG/100 ML PIGGYBACK 400 MG IV ×2 (16:08→21:13)
[2023-08-30] MEDS: 0.9 % Sodium Chloride Flush 3 ML SYRINGE IVFLUSH (16:11)
[2023-08-30 16:14] LABS: Glucose, Whole Blood 84 mg/dL (60-115)
[2023-08-30 19:47] LABS: Glucose, Whole Blood 93 mg/dL (60-115)
[2023-08-30] MEDS: Melatonin 3 MG TABLET 18 MG PO (21:07)
[2023-08-30] MEDS: traZODone HCL 100 MG TABLET 300 MG PO (21:10)
[2023-08-30] MEDS: Gabapentin 300 MG CAPSULE PO (21:10)
[2023-08-30] MEDS: clonazePAM 1 MG TABLET PO (21:11)
[2023-08-31] MEDS: Lactated Ringers 1,000 ML 100 ML IVCONT (03:18)
[2023-08-31 03:19] VITALS: BP 135/63; PULSE 58; RESP 14; TEMP 36.5; O2SAT 96
[2023-08-31] MEDS: Acetaminophen 1,000 MG/100 ML PIGGYBACK 400 MG IV ×4 (03:19→21:10)
[2023-08-31] MEDS: HYDROmorphone HCl 0.5 MG/0.5 ML SYRINGE IVPUSH ×5 (03:20→21:11)
[2023-08-31] MEDS: levoFLOXacin/D5W 500 MG/100 ML PIGGYBACK 100 MG IV (06:29)
--- NOTE | 2023-08-31 07:00 | CA_ITS ---
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 The calculated ejection fraction is 59% by biplane method. - No obvious valvular pathology seen on this study. Findings Procedure Information Contrast agent, definity, is being given per protocol without apparent complications. Left Ventricle Normal left ventricular cavity size. There is normal left ventricular wall thickness. The left ventricular systolic function is normal. The calculated ejection fraction is 59% by biplane method. There is no evidence of regional wall motion abnormalities. Diastolic function is normal for age. Right Ventricle Normal right ventricular cavity size and systolic function. Atria Both atria are normal in size. Aortic Valve There is a normal trileaflet aortic valve. There is no aortic valve stenosis. There is no aortic valve regurgitation. Mitral Valve The mitral valve appears normal. There is no mitral valve regurgitation. There is no mitral valve stenosis. Pulmonic Valve The pulmonic valve is likely normal. Tricuspid Valve Normal tricuspid valve structure. There is mild tricuspid valve regurgitation. There is no evidence of pulmonary hypertension. Great Vessels The aortic annulus, sinuses of valsalva, and asc aorta are normal in size. Venous The inferior vena cava is normal in size and collapses greater than 50% with inspiration. Pericardium/Pleural There is no evidence of pericardial effusion. Prior Study Comparison No prior study available for comparison. Recommendations, Care & Conclusions No obvious valvular pathology seen on this study. Measurements 2D Linear Measurements IVSd: 0.96 0.6-0.9/0.6-1.0 cm LVIDd: 5.15 3.9-5.3/4.2-5.9 cm LVIDd Index: 2.68 2.4-3.2/2.2-3.1 cm/m2 LVIDs: 2.85 2.0-3.6 cm LVPWd: 0.96 0.7-1.1 cm LA Diam: 3.70 2.7-3.8/3.0-4.0 cm LAIDs Index: 1.93 1.5-2.3 cm/m2 LV Mass: 226.25 67-162/88-224 g LV Mass Index: 117.84 43-95/49-115 g/m2 LVOT Diam: 2.00 3.0+(-)1.3 cm 2D Systolic Function EF 4C: 61.60 >55% EF 2C: 58.60 >55% EF BiP: 58.50 >55% Mitral Valve MV Pk E: 1.13 MV PK A: 0.48 MV Decel Time: 219.00 E/A: 2.30 E'Lateral: 9.68 E'Medial: 9.14 E/E' Med: 12.40 E/E' Lat: 11.70 PHT: 64.00 MVA PHT: 3.44 Decel [place]: 5.18 Aortic Valve AoV Pk [place]: 1.57 AoV Pk Grad: 10.00 JOHNNY: 2.51 LVOT LVOT Pk [place]: 1.25 LVOT Mn [place]: 0.89 LVOT VTI: 0.31 LVOT Pk Grad: 6.00 LVOT Mn Grad: 4.00 LVOT Diam: 2.00 LVOT Area: 3.14 Diastolic Function MV Pk E: 1.13 MV Pk A: 0.48 E/A: 2.30 E'Medial: 9.14 E/E' Med: 12.40 E' Laterial: 9.68 E/E' Lat: 11.70 Right Ventricle TAPSE (mm): 26.90 TVS' [place]: 14.90 Tricuspid Valve TR Pk [place]: 2.84 TR Pk Grad: 32.00 RA Press: 3.00 RVSP: 35.00 Great Vessels Aorta Sinus of Valsalva: 2.90 2.0-3.5 cm Ao Asc: 2.80 2.1-3.4 cm Pulmonary Veins Pulm Vein S/D 1.30 Pulmonary Valve PV Pk [place]: 1.06 Peak PV Grad: 4.00 Updated in Other Vendor System with Status of Final Kirk Good MD electronically signed on 08/31/2023 11:44:06 AM with status of Final
--- NOTE | 2023-08-31 07:41 | P.PNGS_ITS ---
Subjective Subjective Date of Service: 08/31/23 <Osiris Koroma PA-C - Last Filed: 08/31/23 07:46> 09/03/23 <Danny Hernandez MD - Last Filed: 09/03/23 08:49> Interval history: Still c/o pain, points to incision when asked where it is the worst. Continues to c/o dizziness with ambulation. Passing flatus. No further diarrhea. <Osiris Koroma PA-C - Last Filed: 08/31/23 07:46> Physical Exam 2 Vital Signs: Vital Signs: Last Vital Signs Temp 97.7 F 08/31/23 03:19 Pulse 58 08/31/23 03:19 Resp 14 08/31/23 03:19 BP 135/63 08/31/23 03:19 Pulse Ox 96 08/31/23 03:19 O2 Del Method Room Air 08/31/23 03:19 BMI result Body Mass Index 31.3 <Osiris Koroma PA-C - Last Filed: 08/31/23 07:46> Const: General: comfortable, no acute distress and alert <Osiris Koroma PA-C - Last Filed: 08/31/23 07:46> Orientation/consciousness: patient oriented x3 <JAIME Griffin Last Filed: 08/31/23 07:46> Resp: Effort & Inspection: normal respiratory effort <Osiris Koroma PA-C - Last Filed: 08/31/23 07:46> GI: Other: midline incision clean appearing, incision probed centrally with qtip with evacuation of large amount of serous fluid LUQ incision with scant purulent drainage, probed with qtip without drainage, no surrounding erythema <Osiris Koroma PA-C - Last Filed: 08/31/23 07:46> Inspection: No distended <JAIME Griffin Last Filed: 08/31/23 07:46> Palpation (GI): Soft to palpation, Tenderness to palpation present (GI) (mild incisional) and no guarding <JAIME Griffin Last Filed: 08/31/23 07:46> Skin: General skin exam: no rashes or lesions noted <Osiris Koroma PA-C - Last Filed: 08/31/23 07:46> Neuro: General: patient oriented x3 and moves all extremities <Osiris Koroma PA-C - Last Filed: 08/31/23 07:46> Objective Data Active Medications Acetaminophen/Butalbital/Caffeine (Butalb/Acetamin/Caff 50/325/40 Tablet) 1 tab PO Q6H PRN PRN Reason: Migraine Headache Albuterol Sulfate (Albuterol Sulfate 90 Mcg 8 Gm Inhaler) 2 puff INHALE Q6H PRN PRN Reason: Shortness Of Breath Calcium Carbonate (Calcium Carbonate 750 Mg Tab.Chew) 750 mg PO Q4H PRN PRN Reason: Heartburn Clonazepam (Clonazepam 1 Mg Tablet) 1 mg PO DAILY [facility] Clonazepam (Clonazepam 1 Mg Tablet) 1 mg PO DAILY@2200 [facility] Last Admin: 08/30/23 21:11 Dose: 1 mg Documented By: JUANY Fluconazole (Fluconazole 100 Mg Tablet) 100 mg PO DAILY [facility] Last Admin: 08/30/23 12:05 Dose: 100 mg Documented By: LUIS FERNANDO Fluticasone/Vilanterol (Fluticasone/Vilanterol 200/25 Blst.W.Dev) 1 puff INHALE RDAILY [facility] Gabapentin (Gabapentin 300 Mg Capsule) 300 mg PO TID [facility] Last Admin: 08/30/23 21:10 Dose: 300 mg Documented By: JUANY Glucose (Glucose Gel 15 Gm Gel..Gram.) 15 gm PO Q15M PRN; Protocol PRN Reason: per Hypoglycemia Standing Ord. Hydromorphone HCl (Hydromorphone Hcl 0.5 Mg/0.5 Ml Syringe) 0.5 mg IVPUSH Q4H PRN; Protocol PRN Reason: Pain, Severe (Pain Scale 7-10) Last Admin: 08/31/23 07:29 Dose: 0.5 mg Documented By: RUPERTO Levofloxacin (Levaquin) 500 mg in 100 mls @ 100 mls/hr IV Q24H [facility] Last Admin: 08/31/23 06:29 Dose: 100 mls/hr Documented By: JUANY Lactated Ringer's (Lr) 1,000 mls @ 100 mls/hr IVCONT .Q10H [facility] Last Admin: 08/31/23 03:18 Dose: 100 mls/hr Documented By: JUANY Acetaminophen (Ofirmev) 1,000 mg in 100 mls @ 400 mls/hr IV Q6H [facility] Last Infusion: 08/31/23 03:35 Dose: Infused Documented By: JUANY Dextrose (D10) 250 mls @ 750 mls/hr IV Q15M PRN; Protocol PRN Reason: per Hypoglycemia Standing Ord. Insulin Human Lispro (Insulin Lispro 100 Unit/Ml 3 Ml Vial) 0 unit SUBCUT QIDACHS [facility]; Protocol Last Admin: 08/30/23 21:31 Dose: Not Given Documented By: JUANY Non-Admin Reason: No Insulin Coverage Lurasidone HCl (Lurasidone Hcl 40 Mg Tablet) 120 mg PO DAILY [facility] Magnesium Hydroxide (Milk Of Magnesia 30 Ml Oral.Susp) 30 ml PO DAILY PRN PRN Reason: Constipation Melatonin (Melatonin 3 Mg Tablet) 6 mg PO BEDTIME PRN PRN Reason: Insomnia Melatonin (Melatonin 3 Mg Tablet) 18 mg PO BEDTIME [facility] Last Admin: 08/30/23 21:07 Dose: 18 mg Documented By: JUANY Non-Formulary Medication (Bupropion Hcl) 100 mg PO DAILY [facility] Omeprazole (Omeprazole 20 Mg Capsule.Dr) 20 mg PO DAILY [facility] Ondansetron HCl (Ondansetron Hcl 4 Mg/2 Ml Vial) 4 mg IVPUSH QID PRN PRN Reason: Nausea Oxycodone HCl (Oxycodone Hcl Immed Release 5 Mg Tablet) 5 mg PO Q6H PRN PRN Reason: Pain, Moderate(Pain Scale 4-6) Last Admin: 08/30/23 18:56 Dose: 5 mg Documented By: GERALD Pramipexole Dihydrochloride (Pramipexole Di-Hcl 0.25 Mg Tablet) 0.25 mg PO DAILY [facility] Sodium Chloride (0.9 % Sodium Chloride Flush 3 Ml Syringe) 3 ml IVFLUSH QSHIFT [facility] Last Admin: 08/31/23 06:57 Dose: Not Given Documented By: RUPERTO Non-Admin Reason: IV Running Trazodone HCl (Trazodone Hcl 100 Mg Tablet) 300 mg PO BEDTIME [facility] Last Admin: 08/30/23 21:10 Dose: 300 mg Documented By: JUANY Vitamin D (Cholecalciferol (Vitamin D3) 25 Mcg Tablet) 50 mcg PO DAILY [facility] Vortioxetine (Vortioxetine Hydrobromide 20 Mg Tablet) 20 mg PO DAILY [facility] <Osiris Koroma PA-C - Last Filed: 08/31/23 07:46> Labs CBC & Chem 7: 08/30/23 00:02 09/03/23 05:50 <Osiris Koroma PA-C - Last Filed: 08/31/23 07:46> Labs: Laboratory Results - last 24 hr 08/30/23 08/30/23 16:07 19:43 POC Glucose 84 93 <Osiris Koroma PA-C - Last Filed: 08/31/23 07:46> Microbiology Microbiology Results: Microbiology 08/30/23 00:21 Blood Culture - Preliminary Blood - Venous No growth after 24 hours. 08/30/23 00:21 Blood Culture - Preliminary Blood - Venous No growth after 24 hours. <Osiris Koroma PA-C - Last Filed: 08/31/23 07:46> Procedures Date of Service Date of Service: 08/31/23 <Osirsi Koroma PA-C - Last Filed: 08/31/23 07:46> 09/03/23 <Danny Hernandez MD - Last Filed: 09/03/23 08:49> Progress Note: A&P Assessment and plan (1) Abdominal pain: Status: Acute <Osiris Koroma PA-C - Last Filed: 08/31/23 07:46> (2) Abdominal wall fluid collections: Status: Acute <Osiris Koroma PA-C - Last Filed: 08/31/23 07:46> (3) Polypharmacy: Status: Acute <Osiris Koroma PA-C - Last Filed: 08/31/23 07:46> Assessment and Plan: Evacuation of midline seroma this morning, although doubt causing her pain. Likely post operative pain exacerbated by fall. She is clinically appearing well and abdomen is overall very benign. Hospitalists following for syncopal episode. Diet as tolerated. GI consult pending. Cont levaquin. < Osiris Koroma PA-C - Last Filed: 08/31/23 07:46> Evacuation of midline seroma this morning, although doubt causing her pain. Likely post operative pain exacerbated by fall. She is clinically appearing well and abdomen is overall very benign. Hospitalists following for syncopal episode. Diet as tolerated. GI consult pending. Cont levaquin. Overall patient feels much improved. Discussed with Dr. Mosqueda. Will stop vancomycin. Abdominal wound packed with quarter-inch Nu Gauze. Patient tolerated well . Await final reading on CT abdomen and pelvis <Danny Hernandez MD - Last Filed: 09/03/23 08:49> Time Spent With Patient Time: Total time managing care of this patient today ____ minutes. <Osiris Koroma PA-C - Last Filed: 08/31/23 07:46> Quality Stroke Does the patient have a stroke diagnosis?: No <Osiris Koroma PA-C - Last Filed: 08/31/23 07:46> VTE Prior VTE?: No <Osiris Koroma PA-C - Last Filed: 08/31/23 07:46> VTE Risk Level:: Surgical - moderate <Osiris Koroma PA-C - Last Filed: 08/31/23 07:46> VTE Device Contraindication: N/A - Device Ordered <Osiris Koroma PA-C - Last Filed: 08/31/23 07:46> VTE Drug Contraindication: N/A - Med Ordered <Osiris Koroma PA-C - Last Filed: 08/31/23 07:46>
[2023-08-31 07:46] VITALS: BP 114/56; PULSE 51; RESP 18; TEMP 36.3; O2SAT 96
[2023-08-31 07:52] LABS: Glucose, Whole Blood 86 mg/dL (60-115)
[2023-08-31] MEDS: Lurasidone HCl 40 MG TABLET 120 MG PO (08:02)
[2023-08-31] MEDS: Cholecalciferol (Vitamin D3) 25 MCG TABLET 50 MCG PO (08:02)
[2023-08-31] MEDS: Gabapentin 300 MG CAPSULE PO ×3 (08:02→21:12)
[2023-08-31] MEDS: Pramipexole Di-HCL 0.25 MG TABLET PO (08:03)
[2023-08-31] MEDS: Omeprazole 20 MG CAPSULE.DR PO (08:03)
[2023-08-31] MEDS: clonazePAM 1 MG TABLET PO ×2 (08:03→21:13)
[2023-08-31] MEDS: Fluconazole 100 MG TABLET PO (08:03)
[2023-08-31] MEDS: Vortioxetine Hydrobromide 20 MG TABLET PO (08:03)
--- NOTE | 2023-08-31 08:52 | PHA.PROG ---
Admission Date/Time: August 30, 2023 03:14 Indication: Skin Weight in k.2 kg Adjusted body weight in K.28 kg Serum Creatinine - Last 168 Hours 08/30/23 08/30/23 00:02 04:34 Creatinine 0.84 0.73 Estimated CrCl and GFR - Last 168 Hours 08/30/23 08/30/23 00:02 04:34 Estim Creat Clear Calc 74.2 85.4 Estimated GFR > 60 > 60 Vancomycin Loading Dose: 2,000 mg Current Vancomycin Dosing Regimen: 1,000 m q 12h Vancomycin Monitoring using AUC goal of 400 - 600 range with trough as surrogate marker: 480, predicted trough 15.2mg/L Date and Time for next Vancomycin Level to be drawn: 08/31 @ 1500 Pharmacist Comments on Vancomycin Plan: Vancomycin dosing will take advantage of [employer] as a clinical decision support tool that uses Bayesian modeling to calculate individual patient's pharmacokinetic parameters and forecast the patient's drug concentration time course with the target goal AUC 24 range of 400 - 600 mg/L/hr.
[2023-08-31] MEDS: KCl 20 mEq in 0.45% Sod 20 MEQ/1,000 ML IV.SOLN 100 MEQ IVCONT ×2 (09:02→19:19)
[2023-08-31 09:34] LABS: Creatinine Clr Calc Pharmacy 92.4; Estimated Glomerular Filt Rate > 60
--- NOTE | 2023-08-31 10:36 | CONS_ITS ---
DATE OF SERVICE: 08/30/2023 REFERRING PHYSICIAN: Osiris Koroma PA-C REASON FOR CONSULTATION: History of ulcer. HISTORY OF PRESENT ILLNESS: The patient is a pleasant 62-year-old woman, who was admitted to the hospital after presenting to the emergency room yesterday with complaints of abdominal pain. She has a history of undergoing a surgical repair with a Ruben patch of a perforated marginal ulcer earlier in the year. This was complicated by a foreign body reaction to the abdominal wall that required wound exploration, debridement and incision and drainage of an abdominal wall abscess in the left upper quadrant on August 22. She was readmitted today after presenting to the emergency room with recurrent abdominal pain. CT imaging at that time was consistent with surgical changes after she had a syncopal episode at home, there was a question of a possible fistula, which has not been clinically apparent. The patient has not undergone previous endoscopy. She has had laparoscopic Pamela-en-Y gastric bypass surgery and does recall undergoing colonoscopy at least 10 years ago. She has no lower GI symptoms. There has been no hematemesis or melena. PAST MEDICAL HISTORY: 1. Gastric bypass surgery as above. 2. Asthma. 3. Hypertension. 4. Pulmonary embolism, on Eliquis. 5. Diabetes mellitus type 2. 6. Bipolar disorder. 7. Peripheral neuropathy. 8. Lumbar spondylolisthesis. 9. Gastroesophageal reflux disease. 10. History of substance abuse. 11. Sleep apnea. 12. Restless legs syndrome. CURRENT MEDICATIONS: List is reviewed in the chart. ALLERGIES: MULTIPLE ALLERGIES ARE REVIEWED. FAMILY HISTORY: Reviewed with the patient and is negative for GI malignancy in primary relatives regarding the upper GI tract. SOCIAL HISTORY: There is no current tobacco, alcohol, or substance abuse. REVIEW OF SYSTEMS: SKIN: No pruritus. HEENT: Negative. CARDIOPULMONARY: No shortness of breath or chest pain. GASTROINTESTINAL: As above. GENITOURINARY: Negative NEUROPSYCHIATRIC: Negative. PHYSICAL EXAMINATION: GENERAL: Shows a pleasant female, sitting comfortably in bed. VITAL SIGNS: Reviewed in electronic medical record and are stable. SKIN: Anicteric. HEENT: Shows no scleral icterus. NECK: Without lymphadenopathy or thyromegaly. LUNGS: Clear. HEART: Shows a regular rate and rhythm. S1, S2. No murmur. ABDOMEN: Soft without focal masses. There are dressings in place over her previous incisions. These are not take down. Bowel sounds are present. No organomegaly is noted. EXTREMITIES: Without edema. LABORATORY DATA AND IMAGING STUDIES: Reviewed. IMPRESSION: Anastomotic ulcer. She currently appears stable with respect to her anastomotic ulcer and perforation that required surgery earlier this year. At this time, I agree with treating her for her abdominal pain and monitoring her clinically. She will be due for followup colonoscopy as an outpatient and should undergo upper endoscopy at that time for reassessment of her ulcer and revaluation of the gastrojejunal anastomosis, I discussed this with her. In the interim, she is being treated with omeprazole, which I would recommend continuing until the time of her eventual evaluation endoscopically. Thanks for asking me to see her. I will follow her in the hospital with you. MD YU Ovalle/BRIA / [id number]
[2023-08-31 11:16] LABS: Glucose, Whole Blood 97 mg/dL (60-115)
--- NOTE | 2023-08-31 14:19 | HO.PM.IMPN ---
Subjective Subjective Date of Service: 08/31/23 Interval History: syncope Review of Systems Denies any new symptoms of lightheadedness or dizziness no fevers Physical Exam Vital Signs: Vital Signs: Last Vital Signs Temp 97.3 F 08/31/23 07:46 Pulse 51 08/31/23 07:46 Resp 18 08/31/23 07:46 BP 114/56 L 08/31/23 07:46 Pulse Ox 96 08/31/23 07:46 O2 Del Method Room Air 08/31/23 07:46 BMI result Body Mass Index 31.3 Appearance: Alert.? Oriented X3.?. cvs: rrr, [id number] , no murmur res: clear to auscultation ,no rhonchii or wheezing abd: has some abd pain ,has midline incision(? incision probed as per surgery note- centrally with qtip with evacuation of large amount of serous fluid ),LUq incision( some drainage), nd .please see surgery note for details. ext pulses present , no cyanosis . neuro: axo3 , nonfocal. Objective Data Active Medications Acetaminophen/Butalbital/Caffeine (Butalb/Acetamin/Caff 50/325/40 Tablet) 1 tab PO Q6H PRN PRN Reason: Migraine Headache Albuterol Sulfate (Albuterol Sulfate 90 Mcg 8 Gm Inhaler) 2 puff INHALE Q6H PRN PRN Reason: Shortness Of Breath Calcium Carbonate (Calcium Carbonate 750 Mg Tab.Chew) 750 mg PO Q4H PRN PRN Reason: Heartburn Clonazepam (Clonazepam 1 Mg Tablet) 1 mg PO DAILY [facility] Last Admin: 08/31/23 08:03 Dose: 1 mg Documented By: RUPERTO Clonazepam (Clonazepam 1 Mg Tablet) 1 mg PO DAILY@2200 [facility] Last Admin: 08/30/23 21:11 Dose: 1 mg Documented By: JUANY Fluconazole (Fluconazole 100 Mg Tablet) 100 mg PO DAILY [facility] Last Admin: 08/31/23 08:03 Dose: 100 mg Documented By: RUPERTO Fluticasone/Vilanterol (Fluticasone/Vilanterol 200/25 Blst.W.Dev) 1 puff INHALE RDAILY [facility] Last Admin: 08/31/23 08:30 Dose: Not Given Documented By: KAHLIL Non-Admin Reason: Patient Refused Gabapentin (Gabapentin 300 Mg Capsule) 300 mg PO TID [facility] Last Admin: 08/31/23 08:02 Dose: 300 mg Documented By: RUPERTO Glucose (Glucose Gel 15 Gm Gel..Gram.) 15 gm PO Q15M PRN; Protocol PRN Reason: per Hypoglycemia Standing Ord. Hydromorphone HCl (Hydromorphone Hcl 0.5 Mg/0.5 Ml Syringe) 0.5 mg IVPUSH Q4H PRN; Protocol PRN Reason: Pain, Severe (Pain Scale 7-10) Last Admin: 08/31/23 12:28 Dose: 0.5 mg Documented By: RUPERTO Levofloxacin (Levaquin) 500 mg in 100 mls @ 100 mls/hr IV Q24H [facility] Last Infusion: 08/31/23 07:49 Dose: Infused Documented By: RUPERTO Acetaminophen (Ofirmev) 1,000 mg in 100 mls @ 400 mls/hr IV Q6H [facility] Last Infusion: 08/31/23 09:15 Dose: Infused Documented By: RUPERTO Dextrose (D10) 250 mls @ 750 mls/hr IV Q15M PRN; Protocol PRN Reason: per Hypoglycemia Standing Ord. Potassium Chloride/Sodium Chloride (Kcl 20 Meq In 0.45% Sod) 20 meq in 1,000 mls @ 100 mls/hr IVCONT .Q10H [facility] Last Admin: 08/31/23 09:02 Dose: 100 mls/hr Documented By: RUPERTO Vancomycin HCl 1,000 mg/ (Sodium Chloride) 270 mls @ 270 mls/hr IV Q12H [facility] Insulin Human Lispro (Insulin Lispro 100 Unit/Ml 3 Ml Vial) 0 unit SUBCUT QIDACHS [facility]; Protocol Last Admin: 08/31/23 11:38 Dose: Not Given Documented By: RUPERTO Non-Admin Reason: No Insulin Coverage Lurasidone HCl (Lurasidone Hcl 40 Mg Tablet) 120 mg PO DAILY [facility] Last Admin: 08/31/23 08:02 Dose: 120 mg Documented By: RUPERTO Magnesium Hydroxide (Milk Of Magnesia 30 Ml Oral.Susp) 30 ml PO DAILY PRN PRN Reason: Constipation Melatonin (Melatonin 3 Mg Tablet) 6 mg PO BEDTIME PRN PRN Reason: Insomnia Melatonin (Melatonin 3 Mg Tablet) 18 mg PO BEDTIME [facility] Last Admin: 08/30/23 21:07 Dose: 18 mg Documented By: JUANY Non-Formulary Medication (Bupropion Hcl) 100 mg PO DAILY [facility] Omeprazole (Omeprazole 20 Mg Capsule.Dr) 20 mg PO DAILY [facility] Last Admin: 08/31/23 08:03 Dose: 20 mg Documented By: RUPERTO Ondansetron HCl (Ondansetron Hcl 4 Mg/2 Ml Vial) 4 mg IVPUSH QID PRN PRN Reason: Nausea Oxycodone HCl (Oxycodone Hcl Immed Release 5 Mg Tablet) 5 mg PO Q6H PRN PRN Reason: Pain, Moderate(Pain Scale 4-6) Last Admin: 08/30/23 18:56 Dose: 5 mg Documented By: GERALD Pharmacy Consult (Consult Rx Vancomycin Dosing) 1 each MISCELLANE DAILY PRN PRN Reason: Consult order Pramipexole Dihydrochloride (Pramipexole Di-Hcl 0.25 Mg Tablet) 0.25 mg PO DAILY [facility] Last Admin: 08/31/23 08:03 Dose: 0.25 mg Documented By: RUPERTO Sodium Chloride (0.9 % Sodium Chloride Flush 3 Ml Syringe) [address] [facility] Last Admin: 08/31/23 06:57 Dose: Not Given Documented By: RUPERTO Non-Admin Reason: IV Running Trazodone HCl (Trazodone Hcl 100 Mg Tablet) 300 mg PO BEDTIME [facility] Last Admin: 08/30/23 21:10 Dose: 300 mg Documented By: JUANY Vitamin D (Cholecalciferol (Vitamin D3) 25 Mcg Tablet) 50 mcg PO DAILY [facility] Last Admin: 08/31/23 08:02 Dose: 50 mcg Documented By: RUPERTO Vortioxetine (Vortioxetine Hydrobromide 20 Mg Tablet) 20 mg PO DAILY [facility] Last Admin: 08/31/23 08:03 Dose: 20 mg Documented By: RUPERTO Labs 08/30/23 00:02 08/31/23 08:50 Labs: Laboratory Results - last 24 hr 08/30/23 08/30/23 08/31/23 16:07 19:43 07:49 Estim Creat Clear Calc Estimated GFR POC Glucose 84 93 86 08/31/23 08/31/23 08:50 11:10 Estim Creat Clear Calc 92.4 Estimated GFR > 60 POC Glucose 97 Microbiology Microbiology Results: Microbiology 08/30/23 00:23 Gram Stain - Final Abdomen - Abdominal Routine Culture - Preliminary No growth to date. 08/30/23 Unknown Urine Culture - Final Urine clean catch - Clean Catch Midstream No growth. 08/30/23 00:21 Blood Culture - Preliminary Blood - Venous No growth after 24 hours. 08/30/23 00:21 Blood Culture - Preliminary Blood - Venous No growth after 24 hours. Assessment and Plan (1) Abdominal wall fluid collections: Status: Acute (2) Polypharmacy: Status: Acute Plan 62-year-old female with history of moderate persistent asthma, hypertension, history of pulmonary embolism on Eliquis, [id number] type 2 diabetes, rubs/leg syndrome, bipolar disorder, peripheral neuropathy, lumbar spondylolisthesis, GERD, history of polysubstance abuse in remission admitted to general surgery for evaluation abdominal pain in a patient who is 5 days s/p wound exploration with abdominal wall debridement of granulation tissue and incision and drainage of the abdominal wall abscess in the left upper quadrant for foreign body reaction of the abdominal wall following history of perforated marginal ulcer s/p Ruben patch. Consult was placed to hospitalist service due to syncopal episode which patient reports occurred 2 days ago Syncope -suspect due to polypharmacy: multiple sedating medications including gabapentin 800 mg twice daily, Lyrica 200 mg twice daily, clonazepam 1 mg every morning and 2 mg in the evening along with lorazepam 1 mg twice daily. She is taking oxycodone 5mg QID. She is also taking 300 mg of trazodone at bedtime in addition to Latuda. -call placed to patient's pcp to confirm if she should be taking gabapenting or lyrica- both noted to have been picked up on 08/08 and 08/09 on [employer], gabpentin most recently prescribed -for now hold lyrica. Decrease gabapentin to 300mg TID -Stop lorazepam. Continue clonazepam 1mg daily and decrease evening dose to 1mg -pain management per general surgery. Change oxycodone to prn, not scheduled -Pt does have slight systolic murmur, will check echo but less suspicious of severe valvular abnormality to be causing symptoms -Head Ct negative for acute intracranial abnormality. No focal neuro deficits -orthostatic vital signs negative, tele seems fine echo pending hypomagnesemia : given iv mag yesterday will add po magnesium abd wall collections : on levaquin surgery following hypertension -blood pressure is soft. Continue holding amlodipine, Lasix, metoprolol. Resume as blood pressure improves as appropriate type 2 diabetes-diet controlled -change to diabetic diet -POC glucose, Admelog sliding scale bipolar disorder -continue Latuda, trazodone. Continue/hold medications as above GERD-PPI Quality Stroke Does the patient have a stroke diagnosis?: No VTE Prior VTE?: No VTE Risk Level:: Surgical - moderate VTE Device Contraindication: N/A - Device Ordered VTE Drug Contraindication: N/A - Med Ordered
[2023-08-31] MEDS: 0.9 % Sodium Chloride Flush 3 ML SYRINGE IVFLUSH ×2 (15:15→19:30)
[2023-08-31 15:18] VITALS: BP 112/65; PULSE 54; RESP 16; TEMP 36.1; O2SAT 98
[2023-08-31 16:13] LABS: Glucose, Whole Blood 77 mg/dL (60-115)
[2023-08-31] MEDS: Magnesium Oxide 400 MG TABLET PO (16:50)
[2023-08-31] MEDS: vancomycin HCL 1,000 MG in 0.9 % Sodium Chloride 250 ML 270 MG IV (16:50)
[2023-08-31 19:47] VITALS: BP 111/56; PULSE 66; RESP 16; TEMP 36.7; O2SAT 98
[2023-08-31 20:07] LABS: Glucose, Whole Blood 148 mg/dL (60-115)
[2023-08-31] MEDS: Melatonin 3 MG TABLET 18 MG PO (21:13)
[2023-08-31] MEDS: traZODone HCL 100 MG TABLET 300 MG PO (21:13)
[2023-09-01] MEDS: HYDROmorphone HCl 0.5 MG/0.5 ML SYRINGE IVPUSH ×3 (00:46→08:55)
[2023-09-01] MEDS: KCl 20 mEq in 0.45% Sod 20 MEQ/1,000 ML IV.SOLN 100 MEQ IVCONT (03:28)
[2023-09-01 04:00] VITALS: BP 120/67; PULSE 60; RESP 16; TEMP 36.3; O2SAT 97
[2023-09-01] MEDS: Acetaminophen 1,000 MG/100 ML PIGGYBACK 400 MG IV ×4 (04:39→21:07)
[2023-09-01] MEDS: vancomycin HCL 1,000 MG in 0.9 % Sodium Chloride 250 ML 270 MG IV (04:57)
[2023-09-01] MEDS: levoFLOXacin/D5W 500 MG/100 ML PIGGYBACK 100 MG IV (06:03)
[2023-09-01 06:30] LABS: Creatinine Clr Calc Pharmacy 92.4; Estimated Glomerular Filt Rate > 60
[2023-09-01 07:05] VITALS: BP 164/70; PULSE 61; RESP 22; TEMP 36.3; O2SAT 99
[2023-09-01 07:30] LABS: Glucose, Whole Blood 81 mg/dL (60-115)
[2023-09-01] MEDS: Omeprazole 20 MG CAPSULE.DR PO (07:50)
[2023-09-01] MEDS: Lurasidone HCl 40 MG TABLET 120 MG PO (07:51)
[2023-09-01] MEDS: Gabapentin 300 MG CAPSULE PO ×3 (07:51→21:05)
[2023-09-01] MEDS: Furosemide 20 MG TABLET PO (07:51)
[2023-09-01] MEDS: Cholecalciferol (Vitamin D3) 25 MCG TABLET 50 MCG PO (07:51)
[2023-09-01] MEDS: Vortioxetine Hydrobromide 20 MG TABLET PO (07:51)
[2023-09-01] MEDS: clonazePAM 1 MG TABLET PO ×2 (07:51→21:06)
[2023-09-01] MEDS: Fluconazole 100 MG TABLET PO (07:51)
[2023-09-01] MEDS: Magnesium Oxide 400 MG TABLET PO ×2 (07:51→16:26)
[2023-09-01] MEDS: Pramipexole Di-HCL 0.25 MG TABLET PO (07:51)
[2023-09-01] MEDS: Fluticasone/Vilanterol 200/25 BLST.W.DEV 1 PUFF INHALE (07:53)
[2023-09-01 07:55] VITALS: PULSE 59; RESP 16; O2SAT 94
--- NOTE | 2023-09-01 09:24 | P.PNGS_ITS ---
Subjective Subjective Date of Service: 09/01/23 Interval history: Still c/o abdominal pain necessitating IV analgesics. Physical Exam 2 Vital Signs: Vital Signs: Last Vital Signs Temp 97.3 F 09/01/23 07:05 Pulse 59 09/01/23 07:55 Resp 16 09/01/23 07:55 BP 164/70 H 09/01/23 07:05 Pulse Ox 99 09/01/23 07:05 O2 Del Method Room Air 09/01/23 07:05 BMI result Body Mass Index 31.3 Const: General: comfortable and no acute distress Resp: Effort & Inspection: normal respiratory effort GI: Other: midline abd dressing dry and intact Palpation (GI): Soft to palpation and no guarding Skin: General skin exam: no rashes or lesions noted Objective Data Active Medications Acetaminophen/Butalbital/Caffeine (Butalb/Acetamin/Caff 50/325/40 Tablet) 1 tab PO Q6H PRN PRN Reason: Migraine Headache Albuterol Sulfate (Albuterol Sulfate 90 Mcg 8 Gm Inhaler) 2 puff INHALE Q6H PRN PRN Reason: Shortness Of Breath Calcium Carbonate (Calcium Carbonate 750 Mg Tab.Chew) 750 mg PO Q4H PRN PRN Reason: Heartburn Clonazepam (Clonazepam 1 Mg Tablet) 1 mg PO DAILY [facility] Last Admin: 09/01/23 07:51 Dose: 1 mg Documented By: RUPERTO Clonazepam (Clonazepam 1 Mg Tablet) 1 mg PO DAILY@2200 [facility] Last Admin: 08/31/23 21:13 Dose: 1 mg Documented By: JUANY Fluconazole (Fluconazole 100 Mg Tablet) 100 mg PO DAILY [facility] Last Admin: 09/01/23 07:51 Dose: 100 mg Documented By: RUPERTO Fluticasone/Vilanterol (Fluticasone/Vilanterol 200/25 Blst.W.Dev) 1 puff INHALE RDAILY [facility] Last Admin: 09/01/23 07:53 Dose: 1 puff Documented By: DYLLAN Furosemide (Furosemide 20 Mg Tablet) 20 mg PO DAILY [facility]; Protocol Last Admin: 09/01/23 07:51 Dose: 20 mg Documented By: RUPERTO Gabapentin (Gabapentin 300 Mg Capsule) 300 mg PO TID [facility] Last Admin: 09/01/23 07:51 Dose: 300 mg Documented By: RUPERTO Glucose (Glucose Gel 15 Gm Gel..Gram.) 15 gm PO Q15M PRN; Protocol PRN Reason: per Hypoglycemia Standing Ord. Hydromorphone HCl (Hydromorphone Hcl 0.5 Mg/0.5 Ml Syringe) 0.5 mg IVPUSH Q4H PRN; Protocol PRN Reason: Pain, Severe (Pain Scale 7-10) Last Admin: 09/01/23 08:55 Dose: 0.5 mg Documented By: RUPERTO Levofloxacin (Levaquin) 500 mg in 100 mls @ 100 mls/hr IV Q24H [facility] Last Infusion: 09/01/23 07:28 Dose: Infused Documented By: RUPERTO Acetaminophen (Ofirmev) 1,000 mg in 100 mls @ 400 mls/hr IV Q6H [facility] Last Infusion: 09/01/23 04:57 Dose: Infused Documented By: JUANY Dextrose (D10) 250 mls @ 750 mls/hr IV Q15M PRN; Protocol PRN Reason: per Hypoglycemia Standing Ord. Vancomycin HCl 1,000 mg/ (Sodium Chloride) 270 mls @ 270 mls/hr IV Q12H [facility] Last Infusion: 09/01/23 06:03 Dose: Infused Documented By: JUANY Insulin Human Lispro (Insulin Lispro 100 Unit/Ml 3 Ml Vial) 0 unit SUBCUT QIDACHS [facility]; Protocol Last Admin: 09/01/23 07:29 Dose: Not Given Documented By: RUPERTO Non-Admin Reason: No Insulin Coverage Lurasidone HCl (Lurasidone Hcl 40 Mg Tablet) 120 mg PO DAILY [facility] Last Admin: 09/01/23 07:51 Dose: 120 mg Documented By: RUEPRTO Magnesium Hydroxide (Milk Of Magnesia 30 Ml Oral.Susp) 30 ml PO DAILY PRN PRN Reason: Constipation Magnesium Oxide (Magnesium Oxide 400 Mg Tablet) 400 mg PO BIDPC [facility] Last Admin: 09/01/23 07:51 Dose: 400 mg Documented By: RUPERTO Melatonin (Melatonin 3 Mg Tablet) 6 mg PO BEDTIME PRN PRN Reason: Insomnia Melatonin (Melatonin 3 Mg Tablet) 18 mg PO BEDTIME [facility] Last Admin: 08/31/23 21:13 Dose: 18 mg Documented By: JUANY Non-Formulary Medication (Bupropion Hcl) 100 mg PO DAILY [facility] Omeprazole (Omeprazole 20 Mg Capsule.Dr) 20 mg PO DAILY [facility] Last Admin: 09/01/23 07:50 Dose: 20 mg Documented By: RUPERTO Ondansetron HCl (Ondansetron Hcl 4 Mg/2 Ml Vial) 4 mg IVPUSH QID PRN PRN Reason: Nausea Oxycodone HCl (Oxycodone Hcl Immed Release 5 Mg Tablet) 5 mg PO Q6H PRN PRN Reason: Pain, Moderate(Pain Scale 4-6) Last Admin: 08/30/23 18:56 Dose: 5 mg Documented By: GERALD Pharmacy Consult (Consult Rx Vancomycin Dosing) 1 each MISCELLANE DAILY PRN PRN Reason: Consult order Pramipexole Dihydrochloride (Pramipexole Di-Hcl 0.25 Mg Tablet) 0.25 mg PO DAILY [facility] Last Admin: 09/01/23 07:51 Dose: 0.25 mg Documented By: RUPERTO Sodium Chloride (0.9 % Sodium Chloride Flush 3 Ml Syringe) 3 ml IVFLUSH QSHIFT [facility] Last Admin: 09/01/23 06:29 Dose: Not Given Documented By: RUPERTO Non-Admin Reason: IV Running Trazodone HCl (Trazodone Hcl 100 Mg Tablet) 300 mg PO BEDTIME [facility] Last Admin: 08/31/23 21:13 Dose: 300 mg Documented By: JUANY Vitamin D (Cholecalciferol (Vitamin D3) 25 Mcg Tablet) 50 mcg PO DAILY [facility] Last Admin: 09/01/23 07:51 Dose: 50 mcg Documented By: RUPERTO Vortioxetine (Vortioxetine Hydrobromide 20 Mg Tablet) 20 mg PO DAILY [facility] Last Admin: 09/01/23 07:51 Dose: 20 mg Documented By: RUPERTO Labs 08/30/23 00:02 09/01/23 05:24 Labs: Laboratory Results - last 24 hr 08/31/23 08/31/23 08/31/23 08:50 11:10 16:10 Estim Creat Clear Calc 92.4 Estimated GFR > 60 POC Glucose 97 77 08/31/23 09/01/23 09/01/23 20:03 05:24 07:13 Estim Creat Clear Calc 92.4 Estimated GFR > 60 POC Glucose 148 H 81 Microbiology Microbiology Results: Microbiology 08/30/23 00:23 Gram Stain - Final Abdomen - Abdominal Routine Culture - Preliminary Culture in progress. 08/30/23 00:21 Blood Culture - Preliminary Blood - Venous No growth after 48 hours. 08/30/23 00:21 Blood Culture - Preliminary Blood - Venous No growth after 48 hours. 08/30/23 Unknown Urine Culture - Final Urine clean catch - Clean Catch Midstream No growth. Procedures Date of Service Date of Service: 09/01/23 Progress Note: A&P Assessment and plan (1) Abdominal wall fluid collections: Status: Acute (2) Abdominal pain: Status: Acute Plan Found to have midline seroma s/p wound exploration, abdominal wall, debridement of granulation tissue and incision. She remains clinically appearing well with a benign abd exam. Lola removed, silver alginate placed to midline wound. Cont daily wound care. Cont levaquin. Encouraged oral analgesics today. Hospitalists following for syncopal episode. Diet as tolerated. Home when pain controlled on oral analgesics, stable medically. Time Spent With Patient Time: Total time managing care of this patient today ____ minutes. Quality Stroke Does the patient have a stroke diagnosis?: No VTE Prior VTE?: No VTE Risk Level:: Surgical - moderate VTE Device Contraindication: N/A - Device Ordered VTE Drug Contraindication: N/A - Med Ordered
--- NOTE | 2023-09-01 10:56 | MHC.CM.PN ---
Per MD patient not medically cleared for dc, requiring IV pain meds. CM will continue to follow.
[2023-09-01 11:26] LABS: Glucose, Whole Blood 89 mg/dL (60-115)
[2023-09-01] MEDS: oxyCODONE HCl Immed Release 5 MG TABLET PO ×2 (12:38→19:56)
[2023-09-01] MEDS: Milk of Magnesia 30 ML ORAL.SUSP PO (12:38)
[2023-09-01] MEDS: 0.9 % Sodium Chloride Flush 3 ML SYRINGE IVFLUSH (15:26)
[2023-09-01 15:49] VITALS: BP 135/59; PULSE 53; RESP 18; TEMP 36.3; O2SAT 96
[2023-09-01 15:59] LABS: Glucose, Whole Blood 75 mg/dL (60-115)
[2023-09-01 16:01] LABS: Vancomycin Random 15.4 mcg/mL (15-20)
--- NOTE | 2023-09-01 16:11 | HE.PHANOTE ---
VANCO Trough came back at 15.4, lowered dose down to 750 Q12H to avoid high trough tomorrow. Predicted AUC 442, predicted trough 14.5. Renal function stable and improving, next trough to be drawn 09/01 @1500.
[2023-09-01] MEDS: vancomycin HCL 750 MG in 0.9 % Sodium Chloride 250 ML 265 MG IV (16:26)
--- NOTE | 2023-09-01 17:09 | HO.PM.IMPN ---
Subjective Subjective Date of Service: 09/01/23 Interval History: syncope Review of Systems Denies any new symptoms of lightheadedness or dizziness abd pain improving no fevers Physical Exam Vital Signs: Vital Signs: Last Vital Signs Temp 97.4 F 09/01/23 15:49 Pulse 53 09/01/23 15:49 Resp 18 09/01/23 15:49 BP 135/59 L 09/01/23 15:49 Pulse Ox 96 09/01/23 15:49 O2 Del Method Room Air 09/01/23 15:49 BMI result Body Mass Index 31.3 Appearance: Alert.? Oriented X3.?. cvs: rrr, [id number] , no murmur res: clear to auscultation ,no rhonchii or wheezing abd: has some abd pain ,has midline incision(? incision probed as per surgery note- centrally with qtip with evacuation of large amount of serous fluid ),LUq incision( some drainage), nd .please see surgery note for details. ext pulses present , no cyanosis . neuro: axo3 , nonfocal. Objective Data Active Medications Acetaminophen/Butalbital/Caffeine (Butalb/Acetamin/Caff 50/325/40 Tablet) 1 tab PO Q6H PRN PRN Reason: Migraine Headache Albuterol Sulfate (Albuterol Sulfate 90 Mcg 8 Gm Inhaler) 2 puff INHALE Q6H PRN PRN Reason: Shortness Of Breath Apixaban (Apixaban 5 Mg Tablet) 5 mg PO BID [facility] Calcium Carbonate (Calcium Carbonate 750 Mg Tab.Chew) 750 mg PO Q4H PRN PRN Reason: Heartburn Clonazepam (Clonazepam 1 Mg Tablet) 1 mg PO DAILY [facility] Last Admin: 09/01/23 07:51 Dose: 1 mg Documented By: RUPERTO Clonazepam (Clonazepam 1 Mg Tablet) 1 mg PO DAILY@2200 [facility] Last Admin: 08/31/23 21:13 Dose: 1 mg Documented By: JUANY Docusate Sodium (Docusate Sodium 100 Mg Capsule) 100 mg PO BID [facility] Fluconazole (Fluconazole 100 Mg Tablet) 100 mg PO DAILY [facility] Last Admin: 09/01/23 07:51 Dose: 100 mg Documented By: RUPERTO Fluticasone/Vilanterol (Fluticasone/Vilanterol 200/25 Blst.W.Dev) 1 puff INHALE RDAILY [facility] Last Admin: 09/01/23 07:53 Dose: 1 puff Documented By: DYLLAN Furosemide (Furosemide 20 Mg Tablet) 20 mg PO DAILY [facility]; Protocol Last Admin: 09/01/23 07:51 Dose: 20 mg Documented By: RUPERTO Gabapentin (Gabapentin 300 Mg Capsule) 300 mg PO TID [facility] Last Admin: 09/01/23 15:24 Dose: 300 mg Documented By: RUPERTO Glucose (Glucose Gel 15 Gm Gel..Gram.) 15 gm PO Q15M PRN; Protocol PRN Reason: per Hypoglycemia Standing Ord. Hydromorphone HCl (Hydromorphone Hcl 0.5 Mg/0.5 Ml Syringe) 0.5 mg IVPUSH Q4H PRN; Protocol PRN Reason: Pain, Severe (Pain Scale 7-10) Last Admin: 09/01/23 08:55 Dose: 0.5 mg Documented By: RUPERTO Levofloxacin (Levaquin) 500 mg in 100 mls @ 100 mls/hr IV Q24H [facility] Last Infusion: 09/01/23 07:28 Dose: Infused Documented By: RUPERTO Acetaminophen (Ofirmev) 1,000 mg in 100 mls @ 400 mls/hr IV Q6H [facility] Last Infusion: 09/01/23 15:42 Dose: Infused Documented By: RUPERTO Dextrose (D10) 250 mls @ 750 mls/hr IV Q15M PRN; Protocol PRN Reason: per Hypoglycemia Standing Ord. Vancomycin HCl 750 mg/ Sodium (Chloride) 265 mls @ 265 mls/hr IV Q12H [facility] Last Admin: 09/01/23 16:26 Dose: 265 mls/hr Documented By: RUPERTO Insulin Human Lispro (Insulin Lispro 100 Unit/Ml 3 Ml Vial) 0 unit SUBCUT QIDACHS [facility]; Protocol Last Admin: 09/01/23 16:07 Dose: Not Given Documented By: RUPERTO Non-Admin Reason: No Insulin Coverage Lurasidone HCl (Lurasidone Hcl 40 Mg Tablet) 120 mg PO DAILY [facility] Last Admin: 09/01/23 07:51 Dose: 120 mg Documented By: RUPERTO Magnesium Hydroxide (Milk Of Magnesia 30 Ml Oral.Susp) 30 ml PO DAILY PRN PRN Reason: Constipation Last Admin: 09/01/23 12:38 Dose: 30 ml Documented By: RUPERTO Magnesium Oxide (Magnesium Oxide 400 Mg Tablet) 400 mg PO BIDPC [facility] Last Admin: 09/01/23 16:26 Dose: 400 mg Documented By: RUPERTO Melatonin (Melatonin 3 Mg Tablet) 6 mg PO BEDTIME PRN PRN Reason: Insomnia Melatonin (Melatonin 3 Mg Tablet) 18 mg PO BEDTIME [facility] Last Admin: 08/31/23 21:13 Dose: 18 mg Documented By: JUANY Non-Formulary Medication (Bupropion Hcl) 100 mg PO DAILY [facility] Omeprazole (Omeprazole 20 Mg Capsule.Dr) 20 mg PO DAILY [facility] Last Admin: 09/01/23 07:50 Dose: 20 mg Documented By: RUPERTO Ondansetron HCl (Ondansetron Hcl 4 Mg/2 Ml Vial) 4 mg IVPUSH QID PRN PRN Reason: Nausea Oxycodone HCl (Oxycodone Hcl Immed Release 5 Mg Tablet) 5 mg PO Q6H PRN PRN Reason: Pain, Moderate(Pain Scale 4-6) Last Admin: 09/01/23 12:38 Dose: 5 mg Documented By: RUPERTO Pharmacy Consult (Consult Rx Vancomycin Dosing) 1 each MISCELLANE DAILY PRN PRN Reason: Consult order Pramipexole Dihydrochloride (Pramipexole Di-Hcl 0.25 Mg Tablet) 0.25 mg PO DAILY [facility] Last Admin: 09/01/23 07:51 Dose: 0.25 mg Documented By: RUPERTO Sodium Chloride (0.9 % Sodium Chloride Flush 3 Ml Syringe) 3 ml IVFLUSH QSHIFT [facility] Last Admin: 09/01/23 15:26 Dose: 3 ml Documented By: RUPERTO Trazodone HCl (Trazodone Hcl 100 Mg Tablet) 300 mg PO BEDTIME [facility] Last Admin: 08/31/23 21:13 Dose: 300 mg Documented By: JUANY Vitamin D (Cholecalciferol (Vitamin D3) 25 Mcg Tablet) 50 mcg PO DAILY [facility] Last Admin: 09/01/23 07:51 Dose: 50 mcg Documented By: RUPERTO Vortioxetine (Vortioxetine Hydrobromide 20 Mg Tablet) 20 mg PO DAILY [facility] Last Admin: 09/01/23 07:51 Dose: 20 mg Documented By: RUPERTO Labs 08/30/23 00:02 09/01/23 05:24 Labs: Laboratory Results - last 24 hr 08/31/23 09/01/23 09/01/23 20:03 05:24 07:13 Estim Creat Clear Calc 92.4 Estimated GFR > 60 POC Glucose 148 H 81 Random Vancomycin 09/01/23 09/01/23 09/01/23 11:22 15:23 15:55 Estim Creat Clear Calc Estimated GFR POC Glucose 89 75 Random Vancomycin 15.4 Microbiology Microbiology Results: Microbiology 08/30/23 00:23 Gram Stain - Final Abdomen - Abdominal Routine Culture - Preliminary Culture in progress. 08/30/23 00:21 Blood Culture - Preliminary Blood - Venous No growth after 48 hours. 08/30/23 00:21 Blood Culture - Preliminary Blood - Venous No growth after 48 hours. Assessment and Plan (1) Abdominal wall fluid collections: Status: Acute Assessment and Plan: 62-year-old female with history of moderate persistent asthma, hypertension, history of pulmonary embolism on Eliquis, [id number] type 2 diabetes, rubs/leg syndrome, bipolar disorder, peripheral neuropathy, lumbar spondylolisthesis, GERD, history of polysubstance abuse in remission admitted to general surgery for evaluation abdominal pain in a patient who is 5 days s/p wound exploration with abdominal wall debridement of granulation tissue and incision and drainage of the abdominal wall abscess in the left upper quadrant for foreign body reaction of the abdominal wall following history of perforated marginal ulcer s/p Ruben patch. Consult was placed to hospitalist service due to syncopal episode which patient reports occurred 2 days ago Syncope -suspect due to polypharmacy: multiple sedating medications including gabapentin 800 mg twice daily, Lyrica 200 mg twice daily, clonazepam 1 mg every morning and 2 mg in the evening along with lorazepam 1 mg twice daily. She is taking oxycodone 5mg QID. She is also taking 300 mg of trazodone at bedtime in addition to Latuda. -call placed to patient's pcp to confirm if she should be taking gabapenting or lyrica- both noted to have been picked up on 08/08 and 08/09 on [employer], gabpentin most recently prescribed -for now hold lyrica. Decrease gabapentin to 300mg TID -Stop lorazepam. Continue clonazepam 1mg daily and decrease evening dose to 1mg -pain management per general surgery. Change oxycodone to prn, not scheduled -Pt does have slight systolic murmur, will check echo but less suspicious of severe valvular abnormality to be causing symptoms -Head Ct negative for acute intracranial abnormality. No focal neuro deficits -orthostatic vital signs negative, tele seems fine echo:The left ventricular systolic function is normal. The calculated ejection fraction is 59% by biplane method. - No obvious valvular pathology seen on this study. hypomagnesemia : given iv mag intially continue po magnesium abd wall collections : on levaquin surgery following hypertension -blood pressure is soft. Continue holding amlodipine, Lasix, metoprolol. Resume as blood pressure improves as appropriate type 2 diabetes-diet controlled -change to diabetic diet -POC glucose, Admelog sliding scale bipolar disorder -continue Latuda, trazodone. Continue/hold medications as above. hx of pulm embolism : continue apixiban. GERD-PPI Quality Stroke Does the patient have a stroke diagnosis?: No VTE Prior VTE?: No VTE Risk Level:: Surgical - moderate VTE Device Contraindication: N/A - Device Ordered VTE Drug Contraindication: N/A - Med Ordered
[2023-09-01] MEDS: polyethylene glycoL 3350 17 GM POWD.PACK PO (17:19)
[2023-09-01] MEDS: Docusate Sodium 100 MG CAPSULE PO (17:19)
[2023-09-01 19:55] LABS: Glucose, Whole Blood 97 mg/dL (60-115)
[2023-09-01 20:00] VITALS: BP 119/64; PULSE 67; RESP 18; TEMP 36.3; O2SAT 98
[2023-09-01] MEDS: Apixaban 5 MG TABLET PO (21:05)
[2023-09-01] MEDS: traZODone HCL 100 MG TABLET 300 MG PO (21:06)
[2023-09-01] MEDS: Melatonin 3 MG TABLET 18 MG PO (21:06)
[2023-09-02] MEDS: 0.9 % Sodium Chloride Flush 3 ML SYRINGE IVFLUSH ×4 (01:00→23:57)
[2023-09-02] MEDS: oxyCODONE HCl Immed Release 5 MG TABLET PO ×4 (03:22→22:19)
[2023-09-02 03:40] VITALS: BP 141/64; PULSE 59; RESP 18; TEMP 36.2; O2SAT 97
[2023-09-02] MEDS: Acetaminophen 1,000 MG/100 ML PIGGYBACK 400 MG IV ×4 (03:44→22:20)
[2023-09-02] MEDS: vancomycin HCL 750 MG in 0.9 % Sodium Chloride 250 ML 265 MG IV (04:34)
[2023-09-02] MEDS: levoFLOXacin/D5W 500 MG/100 ML PIGGYBACK 100 MG IV (05:40)
[2023-09-02 06:33] LABS: Creatinine Clr Calc Pharmacy 89.8; Estimated Glomerular Filt Rate > 60
[2023-09-02 07:16] VITALS: BP 149/70; PULSE 59; RESP 18; TEMP 36.7; O2SAT 98
[2023-09-02 07:27] LABS: Glucose, Whole Blood 75 mg/dL (60-115)
[2023-09-02] MEDS: Pramipexole Di-HCL 0.25 MG TABLET PO (07:57)
[2023-09-02] MEDS: Gabapentin 300 MG CAPSULE PO ×3 (07:57→20:48)
[2023-09-02] MEDS: Apixaban 5 MG TABLET PO ×2 (07:58→20:47)
[2023-09-02] MEDS: clonazePAM 1 MG TABLET PO ×2 (07:58→21:41)
[2023-09-02] MEDS: Omeprazole 20 MG CAPSULE.DR PO (07:58)
[2023-09-02] MEDS: Cholecalciferol (Vitamin D3) 25 MCG TABLET 50 MCG PO (07:58)
[2023-09-02] MEDS: Furosemide 20 MG TABLET PO (07:58)
[2023-09-02] MEDS: Lurasidone HCl 40 MG TABLET 120 MG PO (07:58)
[2023-09-02] MEDS: Docusate Sodium 100 MG CAPSULE PO ×2 (07:58→20:48)
[2023-09-02] MEDS: Fluconazole 100 MG TABLET PO (07:58)
[2023-09-02] MEDS: Magnesium Oxide 400 MG TABLET PO ×2 (07:58→18:41)
[2023-09-02] MEDS: Vortioxetine Hydrobromide 20 MG TABLET PO (07:58)
[2023-09-02] MEDS: Fluticasone/Vilanterol 200/25 BLST.W.DEV 1 PUFF INHALE (08:30)
[2023-09-02 08:31] VITALS: PULSE 59; RESP 18; O2SAT 98
[2023-09-02] MEDS: amLODIPine Besylate 2.5 MG TABLET PO (09:30)
[2023-09-02 11:18] LABS: Glucose, Whole Blood 70 mg/dL (60-115)
--- NOTE | 2023-09-02 13:46 | PM.PNGS ---
Subjective Subjective Date of Service: 09/02/23 Interval history: Claudette feels overall improved this morning. Her abdominal pain is less. Her midline dressing had to be changed early this morning due to saturation but was dry later in the morning during dressing change with Dr. Hernandez. She is tolerating her diet and now able to ambulate without dizziness. She is requesting her upper endoscopy and colonoscopy be performed while she is inpatient instead of as an outpatient. Physical Exam Vital Signs: Vital Signs: Last Vital Signs Temp 98.1 F 09/02/23 07:16 Pulse 59 09/02/23 08:31 Resp 18 09/02/23 08:31 BP 149/70 H 09/02/23 07:16 Pulse Ox 98 09/02/23 07:16 O2 Del Method Room Air 09/02/23 07:16 BMI result Body Mass Index 31.3 Const: General: comfortable, no acute distress and alert Orientation/consciousness: patient oriented x3 Resp: Effort & Inspection: normal respiratory effort GI: Other: abdominal dressing dry and intact Inspection: No distended Palpation (GI): Soft to palpation, nontender and no guarding Skin: General skin exam: no rashes or lesions noted Neuro: General: patient oriented x3 and moves all extremities Objective Data Active Medications Acetaminophen/Butalbital/Caffeine (Butalb/Acetamin/Caff 50/325/40 Tablet) 1 tab PO Q6H PRN PRN Reason: Migraine Headache Albuterol Sulfate (Albuterol Sulfate 90 Mcg 8 Gm Inhaler) 2 puff INHALE Q6H PRN PRN Reason: Shortness Of Breath Amlodipine Besylate (Amlodipine Besylate 2.5 Mg Tablet) 2.5 mg PO DAILY [facility]; Protocol Last Admin: 09/02/23 09:30 Dose: 2.5 mg Documented By: RUPERTO Apixaban (Apixaban 5 Mg Tablet) 5 mg PO BID [facility] Last Admin: 09/02/23 07:58 Dose: 5 mg Documented By: RUPERTO Calcium Carbonate (Calcium Carbonate 750 Mg Tab.Chew) 750 mg PO Q4H PRN PRN Reason: Heartburn Clonazepam (Clonazepam 1 Mg Tablet) 1 mg PO DAILY [facility] Last Admin: 09/02/23 07:58 Dose: 1 mg Documented By: RUPERTO Clonazepam (Clonazepam 1 Mg Tablet) 1 mg PO DAILY@2200 [facility] Last Admin: 09/01/23 21:06 Dose: 1 mg Documented By: MARCELO Docusate Sodium (Docusate Sodium 100 Mg Capsule) 100 mg PO BID [facility] Last Admin: 09/02/23 07:58 Dose: 100 mg Documented By: RUPERTO Fluconazole (Fluconazole 100 Mg Tablet) 100 mg PO DAILY [facility] Last Admin: 09/02/23 07:58 Dose: 100 mg Documented By: RUPERTO Fluticasone/Vilanterol (Fluticasone/Vilanterol 200/25 Blst.W.Dev) 1 puff INHALE RDAILY [facility] Last Admin: 09/02/23 08:30 Dose: 1 puff Documented By: KAICARJaret Furosemide (Furosemide 20 Mg Tablet) 20 mg PO DAILY [facility]; Protocol Last Admin: 09/02/23 07:58 Dose: 20 mg Documented By: URPERTO Gabapentin (Gabapentin 300 Mg Capsule) 300 mg PO TID [facility] Last Admin: 09/02/23 07:57 Dose: 300 mg Documented By: RUPERTO Glucose (Glucose Gel 15 Gm Gel..Gram.) 15 gm PO Q15M PRN; Protocol PRN Reason: per Hypoglycemia Standing Ord. Hydromorphone HCl (Hydromorphone Hcl 0.5 Mg/0.5 Ml Syringe) 0.5 mg IVPUSH Q4H PRN; Protocol PRN Reason: Pain, Severe (Pain Scale 7-10) Last Admin: 09/01/23 08:55 Dose: 0.5 mg Documented By: RUPERTO Acetaminophen (Ofirmev) 1,000 mg in 100 mls @ 400 mls/hr IV Q6H [facility] Last Infusion: 09/02/23 09:45 Dose: Infused Documented By: RUPERTO Dextrose (D10) 250 mls @ 750 mls/hr IV Q15M PRN; Protocol PRN Reason: per Hypoglycemia Standing Ord. Vancomycin HCl 750 mg/ Sodium (Chloride) 265 mls @ 265 mls/hr IV Q12H [facility] Last Infusion: 09/02/23 05:37 Dose: Infused Documented By: MARCELO Insulin Human Lispro (Insulin Lispro 100 Unit/Ml 3 Ml Vial) 0 unit SUBCUT QIDACHS [facility]; Protocol Last Admin: 09/02/23 11:34 Dose: Not Given Documented By: RUPERTO Non-Admin Reason: No Insulin Coverage Levofloxacin (Levofloxacin 500 Mg Tablet) 500 mg PO Q24H [facility] Lurasidone HCl (Lurasidone Hcl 40 Mg Tablet) 120 mg PO DAILY [facility] Last Admin: 09/02/23 07:58 Dose: 120 mg Documented By: RUPERTO Magnesium Hydroxide (Milk Of Magnesia 30 Ml Oral.Susp) 30 ml PO DAILY PRN PRN Reason: Constipation Last Admin: 09/01/23 12:38 Dose: 30 ml Documented By: RUPERTO Magnesium Oxide (Magnesium Oxide 400 Mg Tablet) 400 mg PO BIDPC [facility] Last Admin: 09/02/23 07:58 Dose: 400 mg Documented By: RUPERTO Melatonin (Melatonin 3 Mg Tablet) 6 mg PO BEDTIME PRN PRN Reason: Insomnia Melatonin (Melatonin 3 Mg Tablet) 18 mg PO BEDTIME [facility] Last Admin: 09/01/23 21:06 Dose: 18 mg Documented By: TUMASY Non-Formulary Medication (Bupropion Hcl) 100 mg PO DAILY [facility] Omeprazole (Omeprazole 20 Mg Capsule.Dr) 20 mg PO DAILY [facility] Last Admin: 09/02/23 07:58 Dose: 20 mg Documented By: RUPERTO Ondansetron HCl (Ondansetron Hcl 4 Mg/2 Ml Vial) 4 mg IVPUSH QID PRN PRN Reason: Nausea Oxycodone HCl (Oxycodone Hcl Immed Release 5 Mg Tablet) 5 mg PO Q6H PRN PRN Reason: Pain, Moderate(Pain Scale 4-6) Last Admin: 09/02/23 09:29 Dose: 5 mg Documented By: RUPERTO Pharmacy Consult (Consult Rx Vancomycin Dosing) 1 each MISCELLANE DAILY PRN PRN Reason: Consult order Pramipexole Dihydrochloride (Pramipexole Di-Hcl 0.25 Mg Tablet) 0.25 mg PO DAILY [facility] Last Admin: 09/02/23 07:57 Dose: 0.25 mg Documented By: RUPERTO Sodium Chloride (0.9 % Sodium Chloride Flush 3 Ml Syringe) 3 ml IVFLUSH QSHIFT [facility] Last Admin: 09/02/23 07:58 Dose: 3 ml Documented By: RUPERTO Trazodone HCl (Trazodone Hcl 100 Mg Tablet) 300 mg PO BEDTIME [facility] Last Admin: 09/01/23 21:06 Dose: 300 mg Documented By: MARCELO Vitamin D (Cholecalciferol (Vitamin D3) 25 Mcg Tablet) 50 mcg PO DAILY [facility] Last Admin: 09/02/23 07:58 Dose: 50 mcg Documented By: RUPERTO Vortioxetine (Vortioxetine Hydrobromide 20 Mg Tablet) 20 mg PO DAILY [facility] Last Admin: 09/02/23 07:58 Dose: 20 mg Documented By: RUPERTO Labs 08/30/23 00:02 09/02/23 05:25 Labs: Laboratory Results - last 24 hr 09/01/23 09/01/23 09/01/23 15:23 15:55 19:49 Estim Creat Clear Calc Estimated GFR POC Glucose 75 97 Random Vancomycin 15.4 09/02/23 09/02/23 09/02/23 05:25 07:12 11:14 Estim Creat Clear Calc 89.8 Estimated GFR > 60 POC Glucose 75 70 Random Vancomycin Microbiology Microbiology Results: Microbiology 08/30/23 00:23 Gram Stain - Final Abdomen - Abdominal Routine Culture - Preliminary Streptococcus species Procedures Date of Service Date of Service: 09/02/23 Progress Note: A&P Assessment and plan (1) Abdominal wall fluid collections: Status: Acute (2) Polypharmacy: Status: Acute Plan She is improved and appears more alert this morning. Her abd exam remains benign. Cont daily wound care with silver alginate, fluffs, abd dressing. Transition to PO levaquin. Hospitalists following for syncopal episode who feel this was secondary to polypharmacy and multiple sedating medications. Per hospitalists, medically cleared for discharge. Possible to dc home tomorrow if unable to arrange inpatient scopes. Time Spent With Patient Time: Total time managing care of this patient today ____ minutes. Quality Stroke Does the patient have a stroke diagnosis?: No VTE Prior VTE?: No VTE Risk Level:: Surgical - moderate VTE Device Contraindication: N/A - Device Ordered VTE Drug Contraindication: N/A - Med Ordered
--- NOTE | 2023-09-02 14:39 | HO.PM.IMPN ---
Subjective Subjective Date of Service: 09/02/23 Interval History: syncope Review of Systems no new symptoms no fever or chills abd pain improving Physical Exam Vital Signs: Vital Signs: Last Vital Signs Temp 98.1 F 09/02/23 07:16 Pulse 59 09/02/23 08:31 Resp 18 09/02/23 08:31 BP 149/70 H 09/02/23 07:16 Pulse Ox 98 09/02/23 07:16 O2 Del Method Room Air 09/02/23 07:16 BMI result Body Mass Index 31.3 Appearance: Alert.? Oriented X3.?. cvs: rrr, [id number] , no murmur res: clear to auscultation ,no rhonchii or wheezing abd: has some abd pain ,Soft to palpation, nontender and no guarding ext pulses present , no cyanosis . neuro: axo3 , nonfoca Objective Data Active Medications Acetaminophen/Butalbital/Caffeine (Butalb/Acetamin/Caff 50/325/40 Tablet) 1 tab PO Q6H PRN PRN Reason: Migraine Headache Albuterol Sulfate (Albuterol Sulfate 90 Mcg 8 Gm Inhaler) 2 puff INHALE Q6H PRN PRN Reason: Shortness Of Breath Amlodipine Besylate (Amlodipine Besylate 2.5 Mg Tablet) 2.5 mg PO DAILY [facility]; Protocol Last Admin: 09/02/23 09:30 Dose: 2.5 mg Documented By: RUPERTO Apixaban (Apixaban 5 Mg Tablet) 5 mg PO BID [facility] Last Admin: 09/02/23 07:58 Dose: 5 mg Documented By: RUPERTO Calcium Carbonate (Calcium Carbonate 750 Mg Tab.Chew) 750 mg PO Q4H PRN PRN Reason: Heartburn Clonazepam (Clonazepam 1 Mg Tablet) 1 mg PO DAILY [facility] Last Admin: 09/02/23 07:58 Dose: 1 mg Documented By: RUPERTO Clonazepam (Clonazepam 1 Mg Tablet) 1 mg PO DAILY@2200 [facility] Last Admin: 09/01/23 21:06 Dose: 1 mg Documented By: MARCELO Docusate Sodium (Docusate Sodium 100 Mg Capsule) 100 mg PO BID [facility] Last Admin: 09/02/23 07:58 Dose: 100 mg Documented By: RUPERTO Fluconazole (Fluconazole 100 Mg Tablet) 100 mg PO DAILY [facility] Last Admin: 09/02/23 07:58 Dose: 100 mg Documented By: RUPERTO Fluticasone/Vilanterol (Fluticasone/Vilanterol 200/25 Blst.W.Dev) 1 puff INHALE RDAILY [facility] Last Admin: 09/02/23 08:30 Dose: 1 puff Documented By: KAICARJaret Furosemide (Furosemide 20 Mg Tablet) 20 mg PO DAILY [facility]; Protocol Last Admin: 09/02/23 07:58 Dose: 20 mg Documented By: RUPERTO Gabapentin (Gabapentin 300 Mg Capsule) 300 mg PO TID [facility] Last Admin: 09/02/23 07:57 Dose: 300 mg Documented By: RUPERTO Glucose (Glucose Gel 15 Gm Gel..Gram.) 15 gm PO Q15M PRN; Protocol PRN Reason: per Hypoglycemia Standing Ord. Hydromorphone HCl (Hydromorphone Hcl 0.5 Mg/0.5 Ml Syringe) 0.5 mg IVPUSH Q4H PRN; Protocol PRN Reason: Pain, Severe (Pain Scale 7-10) Last Admin: 09/01/23 08:55 Dose: 0.5 mg Documented By: RUPERTO Acetaminophen (Ofirmev) 1,000 mg in 100 mls @ 400 mls/hr IV Q6H [facility] Last Infusion: 09/02/23 09:45 Dose: Infused Documented By: RUPERTO Dextrose (D10) 250 mls @ 750 mls/hr IV Q15M PRN; Protocol PRN Reason: per Hypoglycemia Standing Ord. Vancomycin HCl 750 mg/ Sodium (Chloride) 265 mls @ 265 mls/hr IV Q12H [facility] Last Infusion: 09/02/23 05:37 Dose: Infused Documented By: TUMASY Insulin Human Lispro (Insulin Lispro 100 Unit/Ml 3 Ml Vial) 0 unit SUBCUT QIDACHS [facility]; Protocol Last Admin: 09/02/23 11:34 Dose: Not Given Documented By: RUPERTO Non-Admin Reason: No Insulin Coverage Levofloxacin (Levofloxacin 500 Mg Tablet) 500 mg PO Q24H [facility] Lurasidone HCl (Lurasidone Hcl 40 Mg Tablet) 120 mg PO DAILY [facility] Last Admin: 09/02/23 07:58 Dose: 120 mg Documented By: RUPERTO Magnesium Hydroxide (Milk Of Magnesia 30 Ml Oral.Susp) 30 ml PO DAILY PRN PRN Reason: Constipation Last Admin: 09/01/23 12:38 Dose: 30 ml Documented By: RUPERTO Magnesium Oxide (Magnesium Oxide 400 Mg Tablet) 400 mg PO BIDPC [facility] Last Admin: 09/02/23 07:58 Dose: 400 mg Documented By: RUPERTO Melatonin (Melatonin 3 Mg Tablet) 6 mg PO BEDTIME PRN PRN Reason: Insomnia Melatonin (Melatonin 3 Mg Tablet) 18 mg PO BEDTIME [facility] Last Admin: 09/01/23 21:06 Dose: 18 mg Documented By: MARCELO Non-Formulary Medication (Bupropion Hcl) 100 mg PO DAILY [facility] Omeprazole (Omeprazole 20 Mg Capsule.Dr) 20 mg PO DAILY [facility] Last Admin: 09/02/23 07:58 Dose: 20 mg Documented By: RUPERTO Ondansetron HCl (Ondansetron Hcl 4 Mg/2 Ml Vial) 4 mg IVPUSH QID PRN PRN Reason: Nausea Oxycodone HCl (Oxycodone Hcl Immed Release 5 Mg Tablet) 5 mg PO Q6H PRN PRN Reason: Pain, Moderate(Pain Scale 4-6) Last Admin: 09/02/23 09:29 Dose: 5 mg Documented By: RUPERTO Pharmacy Consult (Consult Rx Vancomycin Dosing) 1 each MISCELLANE DAILY PRN PRN Reason: Consult order Pramipexole Dihydrochloride (Pramipexole Di-Hcl 0.25 Mg Tablet) 0.25 mg PO DAILY [facility] Last Admin: 09/02/23 07:57 Dose: 0.25 mg Documented By: RUPERTO Sodium Chloride (0.9 % Sodium Chloride Flush 3 Ml Syringe) [facility] Last Admin: 09/02/23 07:58 Dose: 3 ml Documented By: RUPERTO Trazodone HCl (Trazodone Hcl 100 Mg Tablet) 300 mg PO BEDTIME [facility] Last Admin: 09/01/23 21:06 Dose: 300 mg Documented By: MARCELO Vitamin D (Cholecalciferol (Vitamin D3) 25 Mcg Tablet) 50 mcg PO DAILY [facility] Last Admin: 09/02/23 07:58 Dose: 50 mcg Documented By: RUPERTO Vortioxetine (Vortioxetine Hydrobromide 20 Mg Tablet) 20 mg PO DAILY [facility] Last Admin: 09/02/23 07:58 Dose: 20 mg Documented By: RUPERTO Labs 08/30/23 00:02 09/02/23 05:25 Labs: Laboratory Results - last 24 hr 09/01/23 09/01/23 09/01/23 15:23 15:55 19:49 Estim Creat Clear Calc Estimated GFR POC Glucose 75 97 Random Vancomycin 15.4 09/02/23 09/02/23 09/02/23 05:25 07:12 11:14 Estim Creat Clear Calc 89.8 Estimated GFR > 60 POC Glucose 75 70 Random Vancomycin Microbiology Microbiology Results: Microbiology 08/30/23 00:23 Gram Stain - Final Abdomen - Abdominal Routine Culture - Preliminary Streptococcus species Assessment and Plan (1) Abdominal wall fluid collections: Status: Acute Assessment and Plan: 62-year-old female with history of moderate persistent asthma, hypertension, history of pulmonary embolism on Eliquis, [id number] type 2 diabetes, rubs/leg syndrome, bipolar disorder, peripheral neuropathy, lumbar spondylolisthesis, GERD, history of polysubstance abuse in remission admitted to general surgery for evaluation abdominal pain in a patient who is 5 days s/p wound exploration with abdominal wall debridement of granulation tissue and incision and drainage of the abdominal wall abscess in the left upper quadrant for foreign body reaction of the abdominal wall following history of perforated marginal ulcer s/p Ruben patch. Consult was placed to hospitalist service due to syncopal episode which patient reports occurred 2 days ago Syncope: workup tele seems fine, orthostatic negative, echo:The left ventricular systolic function is normal. The calculated ejection fraction is 59% by biplane method. No obvious valvular pathology seen on this study. Head Ct negative for acute intracranial abnormality. No focal neuro deficits possible polypharmacy contributing: multiple sedating medications including gabapentin 800 mg twice daily, Lyrica 200 mg twice daily, clonazepam 1 mg every morning and 2 mg in the evening along with lorazepam 1 mg twice daily. She is taking oxycodone 5mg QID. She is also taking 300 mg of trazodone at bedtime in addition to Latuda. hold lyrica,adjusted gabapentin to 300mg TID,Stop lorazepam. Continue clonazepam 1mg daily and adjusted evening dose to 1mg. pain management per general surgery. Change oxycodone to prn, not scheduled hypomagnesemia : repleted continue po magnesium abd wall collections : on levaquin/vanco as per primary team. vanco trough 15 surgery following hypertension-blood pressure is soft. starting small dose amlodipine, Lasix, metoprolol. Resume as blood pressure improves as appropriate type 2 diabetes-diet controlled -change to diabetic diet -POC glucose, Admelog sliding scale bipolar disorder continue Latuda, trazodone. her home psych meds were adjusted as above will add psych eval for psych medication adjustments. hx of pulm embolism : continue apixiban. GERD-PPI Quality Stroke Does the patient have a stroke diagnosis?: No VTE Prior VTE?: No VTE Risk Level:: Surgical - moderate VTE Device Contraindication: N/A - Device Ordered VTE Drug Contraindication: N/A - Med Ordered
[2023-09-02 15:20] VITALS: BP 142/65; PULSE 54; RESP 18; TEMP 36.6; O2SAT 99
[2023-09-02 15:42] LABS: Vancomycin Random 16.2 mcg/mL (15-20)
--- NOTE | 2023-09-02 16:03 | HE.PHANOTE ---
RE: VANCO DOSING Random came back as 16.2 (predicted to be 18.5). Based to renal function and indication, dose is reduced to 1000 mg q24h, next random is scheduled for 09/03/23 @1500.
[2023-09-02 16:07] LABS: Glucose, Whole Blood 86 mg/dL (60-115)
[2023-09-02] MEDS: Diatrizoate Meglumine, Sodium 30 ML SOLUTION PO (16:32)
[2023-09-02] MEDS: iohexoL 350 MG/ML 100 ML INFUS..BTL 85 ML IV (18:39)
[2023-09-02] MEDS: vancomycin HCL 1,000 MG in 0.9 % Sodium Chloride 250 ML 270 MG IV (18:41)
[2023-09-02 19:07] VITALS: BP 146/72; PULSE 80; RESP 18; TEMP 36.5; O2SAT 97
[2023-09-02 20:11] LABS: Glucose, Whole Blood 125 mg/dL (60-115)
[2023-09-02] MEDS: Melatonin 3 MG TABLET 18 MG PO (20:47)
[2023-09-02] MEDS: traZODone HCL 100 MG TABLET 300 MG PO (20:48)
[2023-09-03] VITALS (7 sets, daily range): BP systolic 123–147; BP diastolic 58–72; PULSE 52–68; RESP 16–18; TEMP 36.3–36.6; O2SAT 95–99
[2023-09-03] MEDS: levoFLOXacin 500 MG TABLET PO (05:00)
[2023-09-03] MEDS: oxyCODONE HCl Immed Release 5 MG TABLET PO ×3 (05:03→19:43)
[2023-09-03 06:43] LABS: Creatinine Clr Calc Pharmacy 87.4; Estimated Glomerular Filt Rate > 60
[2023-09-03 07:21] LABS: Glucose, Whole Blood 81 mg/dL (60-115)
[2023-09-03] MEDS: Fluticasone/Vilanterol 200/25 BLST.W.DEV 1 PUFF INHALE (08:13)
[2023-09-03] MEDS: Pramipexole Di-HCL 0.25 MG TABLET PO (09:04)
[2023-09-03] MEDS: Furosemide 20 MG TABLET PO (09:04)
[2023-09-03] MEDS: Apixaban 5 MG TABLET PO ×2 (09:04→21:26)
[2023-09-03] MEDS: Vortioxetine Hydrobromide 20 MG TABLET PO (09:04)
[2023-09-03] MEDS: Fluconazole 100 MG TABLET PO (09:04)
[2023-09-03] MEDS: Docusate Sodium 100 MG CAPSULE PO ×2 (09:04→21:25)
[2023-09-03] MEDS: Magnesium Oxide 400 MG TABLET PO ×2 (09:04→16:38)
[2023-09-03] MEDS: amLODIPine Besylate 2.5 MG TABLET PO (09:04)
[2023-09-03] MEDS: Omeprazole 20 MG CAPSULE.DR PO (09:04)
[2023-09-03] MEDS: Lurasidone HCl 40 MG TABLET 120 MG PO (09:04)
[2023-09-03] MEDS: clonazePAM 1 MG TABLET PO ×2 (09:05→21:25)
[2023-09-03] MEDS: Gabapentin 300 MG CAPSULE PO ×3 (09:05→21:26)
[2023-09-03] MEDS: 0.9 % Sodium Chloride Flush 3 ML SYRINGE IVFLUSH ×3 (09:05→21:30)
[2023-09-03] MEDS: Cholecalciferol (Vitamin D3) 25 MCG TABLET 50 MCG PO (09:05)
[2023-09-03] MEDS: Milk of Magnesia 30 ML ORAL.SUSP PO (11:12)
--- NOTE | 2023-09-03 11:21 | MHC.CM.PN ---
Per MD rounds patient not medically cleared for dc. DCP remains home w/ [facility]. Sent update via [employer]. CM will continue to follow.
[2023-09-03 11:28] LABS: Glucose, Whole Blood 82 mg/dL (60-115)
[2023-09-03] MEDS: metroNIDAZOLE/NS 500 MG/100 ML PIGGYBACK 100 MG IV ×2 (12:06→19:34)
--- NOTE | 2023-09-03 16:05 | HO.PM.IMPN ---
Subjective Subjective Date of Service: 09/03/23 Interval History: abd pain Review of Systems no new symptoms no fever or chills abd pain improving Physical Exam Vital Signs: Vital Signs: Last Vital Signs Temp 97.7 F 09/03/23 15:38 Pulse 52 09/03/23 15:38 Resp 18 09/03/23 15:38 BP 143/64 H 09/03/23 15:38 Pulse Ox 97 09/03/23 15:38 O2 Del Method Room Air 09/03/23 15:38 BMI result Body Mass Index 31.3 Appearance: Alert.? Oriented X3.?. cvs: rrr, [id number] , no murmur res: clear to auscultation ,no rhonchii or wheezing abd: has some abd pain ,Soft to palpation, nontender and no guarding ext pulses present , no cyanosis . neuro: axo3 , nonfocal Objective Data Active Medications Acetaminophen/Butalbital/Caffeine (Butalb/Acetamin/Caff 50/325/40 Tablet) 1 tab PO Q6H PRN PRN Reason: Migraine Headache Albuterol Sulfate (Albuterol Sulfate 90 Mcg 8 Gm Inhaler) 2 puff INHALE Q6H PRN PRN Reason: Shortness Of Breath Amlodipine Besylate (Amlodipine Besylate 2.5 Mg Tablet) 2.5 mg PO DAILY [facility]; Protocol Last Admin: 09/03/23 09:04 Dose: 2.5 mg Documented By: MUNIRA Apixaban (Apixaban 5 Mg Tablet) 5 mg PO BID [facility] Last Admin: 09/03/23 09:04 Dose: 5 mg Documented By: MUNIRA Calcium Carbonate (Calcium Carbonate 750 Mg Tab.Chew) 750 mg PO Q4H PRN PRN Reason: Heartburn Clonazepam (Clonazepam 1 Mg Tablet) 1 mg PO DAILY [facility] Last Admin: 09/03/23 09:05 Dose: 1 mg Documented By: MUNIRA Clonazepam (Clonazepam 1 Mg Tablet) 1 mg PO DAILY@2200 [facility] Last Admin: 09/02/23 21:41 Dose: 1 mg Documented By: LEDY Docusate Sodium (Docusate Sodium 100 Mg Capsule) 100 mg PO BID [facility] Last Admin: 09/03/23 09:04 Dose: 100 mg Documented By: MUNIRA Fluconazole (Fluconazole 100 Mg Tablet) 100 mg PO DAILY [facility] Last Admin: 09/03/23 09:04 Dose: 100 mg Documented By: MUNIRA Fluticasone/Vilanterol (Fluticasone/Vilanterol 200/25 Blst.W.Dev) 1 puff INHALE RDAILY [facility] Last Admin: 09/03/23 08:13 Dose: 1 puff Documented By: KAHLIL Furosemide (Furosemide 20 Mg Tablet) 20 mg PO DAILY [facility]; Protocol Last Admin: 09/03/23 09:04 Dose: 20 mg Documented By: MUNIRA Gabapentin (Gabapentin 300 Mg Capsule) 300 mg PO TID [facility] Last Admin: 09/03/23 14:38 Dose: 300 mg Documented By: MUNIRA Glucose (Glucose Gel 15 Gm Gel..Gram.) 15 gm PO Q15M PRN; Protocol PRN Reason: per Hypoglycemia Standing Ord. Hydromorphone HCl (Hydromorphone Hcl 0.5 Mg/0.5 Ml Syringe) 0.5 mg IVPUSH Q4H PRN; Protocol PRN Reason: Pain, Severe (Pain Scale 7-10) Last Admin: 09/01/23 08:55 Dose: 0.5 mg Documented By: RUPERTO Acetaminophen (Ofirmev) 1,000 mg in 100 mls @ 400 mls/hr IV Q6H [facility] Last Admin: 09/03/23 09:09 Dose: Not Given Documented By: MUNIRA Non-Admin Reason: Patient Refused Dextrose (D10) 250 mls @ 750 mls/hr IV Q15M PRN; Protocol PRN Reason: per Hypoglycemia Standing Ord. Metronidazole (Flagyl) 500 mg in 100 mls @ 100 mls/hr IV Q8H [facility] Last Infusion: 09/03/23 13:11 Dose: Infused Documented By: MUNIRA Insulin Human Lispro (Insulin Lispro 100 Unit/Ml 3 Ml Vial) 0 unit SUBCUT QIDACHS [facility]; Protocol Last Admin: 09/03/23 11:47 Dose: Not Given Documented By: MUNIRA Non-Admin Reason: No Insulin Coverage Levofloxacin (Levofloxacin 500 Mg Tablet) 500 mg PO Q24H [facility] Last Admin: 09/03/23 05:00 Dose: 500 mg Documented By: BLAYNE Lurasidone HCl (Lurasidone Hcl 40 Mg Tablet) 120 mg PO DAILY [facility] Last Admin: 09/03/23 09:04 Dose: 120 mg Documented By: MUNIRA Magnesium Hydroxide (Milk Of Magnesia 30 Ml Oral.Susp) 30 ml PO DAILY PRN PRN Reason: Constipation Last Admin: 09/03/23 11:12 Dose: 30 ml Documented By: MUNIRA Magnesium Oxide (Magnesium Oxide 400 Mg Tablet) 400 mg PO BIDPC [facility] Last Admin: 09/03/23 09:04 Dose: 400 mg Documented By: MUNIRA Melatonin (Melatonin 3 Mg Tablet) 6 mg PO BEDTIME PRN PRN Reason: Insomnia Melatonin (Melatonin 3 Mg Tablet) 18 mg PO BEDTIME [facility] Last Admin: 09/02/23 20:47 Dose: 18 mg Documented By: LEDY Non-Formulary Medication (Bupropion Hcl) 100 mg PO DAILY [facility] Omeprazole (Omeprazole 20 Mg Capsule.Dr) 20 mg PO DAILY [facility] Last Admin: 09/03/23 09:04 Dose: 20 mg Documented By: MUNIRA Ondansetron HCl (Ondansetron Hcl 4 Mg/2 Ml Vial) 4 mg IVPUSH QID PRN PRN Reason: Nausea Oxycodone HCl (Oxycodone Hcl Immed Release 5 Mg Tablet) 5 mg PO Q6H PRN PRN Reason: Pain, Moderate(Pain Scale 4-6) Last Admin: 09/03/23 11:12 Dose: 5 mg Documented By: MUNIRA Pramipexole Dihydrochloride (Pramipexole Di-Hcl 0.25 Mg Tablet) 0.25 mg PO DAILY [facility] Last Admin: 09/03/23 09:04 Dose: 0.25 mg Documented By: MUNIRA Sodium Chloride (0.9 % Sodium Chloride Flush 3 Ml Syringe) [facility] Last Admin: 09/03/23 09:05 Dose: 3 ml Documented By: MUNIRA Trazodone HCl (Trazodone Hcl 100 Mg Tablet) 300 mg PO BEDTIME [facility] Last Admin: 09/02/23 20:48 Dose: 300 mg Documented By: LEDY Vitamin D (Cholecalciferol (Vitamin D3) 25 Mcg Tablet) 50 mcg PO DAILY [facility] Last Admin: 09/03/23 09:05 Dose: 50 mcg Documented By: MUNIRA Vortioxetine (Vortioxetine Hydrobromide 20 Mg Tablet) 20 mg PO DAILY [facility] Last Admin: 09/03/23 09:04 Dose: 20 mg Documented By: MUNIRA Labs 08/30/23 00:02 09/03/23 05:50 Labs: Laboratory Results - last 24 hr 09/02/23 09/02/23 09/03/23 16:04 20:03 05:50 Hold Purple Top SEE NOTE Estim Creat Clear Calc 87.4 Estimated GFR > 60 POC Glucose 86 125 H 09/03/23 09/03/23 07:17 11:25 Hold Purple Top Estim Creat Clear Calc Estimated GFR POC Glucose 81 82 Microbiology Microbiology Results: Microbiology 08/30/23 00:23 Gram Stain - Final Abdomen - Abdominal Routine Culture - Final Streptococcus anginosus Assessment and Plan (1) Abdominal wall fluid collections: Status: Acute Assessment and Plan: 62-year-old female with history of moderate persistent asthma, hypertension, history of pulmonary embolism on Eliquis, [id number] type 2 diabetes, rubs/leg syndrome, bipolar disorder, peripheral neuropathy, lumbar spondylolisthesis, GERD, history of polysubstance abuse in remission admitted to general surgery for evaluation abdominal pain in a patient who is 5 days s/p wound exploration with abdominal wall debridement of granulation tissue and incision and drainage of the abdominal wall abscess in the left upper quadrant for foreign body reaction of the abdominal wall following history of perforated marginal ulcer s/p Ruben patch. Consult was placed to hospitalist service due to syncopal episode which patient reports occurred 2 days ago Syncope: workup tele seems fine, orthostatic negative, echo:The left ventricular systolic function is normal. The calculated ejection fraction is 59% by biplane method. No obvious valvular pathology seen on this study. Head Ct negative for acute intracranial abnormality. No focal neuro deficits possible polypharmacy contributing: multiple sedating medications including gabapentin 800 mg twice daily, Lyrica 200 mg twice daily, clonazepam 1 mg every morning and 2 mg in the evening along with lorazepam 1 mg twice daily. She is taking oxycodone 5mg QID. She is also taking 300 mg of trazodone at bedtime in addition to Latuda. hold lyrica,adjusted gabapentin to 300mg TID,Stop lorazepam. Continue clonazepam 1mg daily and adjusted evening dose to 1mg. pain management per general surgery. Change oxycodone to prn, not scheduled hypomagnesemia : repleted continue po magnesium abd wall collections : vanco trough 15-16.2 previous abd cultures (08/22)-klebsella-senstive to levaquin abd cultures (08/29) -strep anginosus pansenstive d/w surgery and ID-on levaquin/flagyl, vanco stopped . hypertension-blood pressure is soft. starting small dose amlodipine, Lasix, metoprolol. Resume as blood pressure improves as appropriate type 2 diabetes-diet controlled -change to diabetic diet -POC glucose, Admelog sliding scale bipolar disorder continue Latuda, trazodone. her home psych meds were adjusted as above will add psych eval for psych medication adjustments. hx of pulm embolism : continue apixiban. GERD-PPI Quality Stroke Does the patient have a stroke diagnosis?: No VTE Prior VTE?: No VTE Risk Level:: Surgical - moderate VTE Device Contraindication: N/A - Device Ordered VTE Drug Contraindication: N/A - Med Ordered
[2023-09-03 16:26] LABS: Glucose, Whole Blood 101 mg/dL (60-115)
[2023-09-03 20:03] LABS: Glucose, Whole Blood 123 mg/dL (60-115)
[2023-09-03] MEDS: traZODone HCL 100 MG TABLET 300 MG PO (21:25)
[2023-09-03] MEDS: Melatonin 3 MG TABLET 18 MG PO (21:26)
[2023-09-04] VITALS (11 sets, daily range): BP systolic 111–134; BP diastolic 60–73; PULSE 63–74; RESP 16–18; TEMP 36–36.6; O2SAT 92–97
[2023-09-04] MEDS: metroNIDAZOLE/NS 500 MG/100 ML PIGGYBACK 100 MG IV ×2 (04:12→11:58)
[2023-09-04] MEDS: levoFLOXacin 500 MG TABLET PO (06:08)
[2023-09-04 07:28] LABS: Glucose, Whole Blood 87 mg/dL (60-115)
[2023-09-04] MEDS: Docusate Sodium 100 MG CAPSULE PO ×2 (08:21→21:17)
[2023-09-04] MEDS: Pramipexole Di-HCL 0.25 MG TABLET PO (08:21)
[2023-09-04] MEDS: Fluconazole 100 MG TABLET PO (08:21)
[2023-09-04] MEDS: Apixaban 5 MG TABLET PO ×2 (08:21→21:17)
[2023-09-04] MEDS: amLODIPine Besylate 2.5 MG TABLET PO (08:21)
[2023-09-04] MEDS: Vortioxetine Hydrobromide 20 MG TABLET PO (08:22)
[2023-09-04] MEDS: 0.9 % Sodium Chloride Flush 3 ML SYRINGE IVFLUSH ×3 (08:22→21:22)
[2023-09-04] MEDS: Omeprazole 20 MG CAPSULE.DR PO (08:22)
[2023-09-04] MEDS: Magnesium Oxide 400 MG TABLET PO ×2 (08:22→16:59)
[2023-09-04] MEDS: Cholecalciferol (Vitamin D3) 25 MCG TABLET 50 MCG PO (08:22)
[2023-09-04] MEDS: Gabapentin 300 MG CAPSULE PO ×2 (08:22→21:17)
[2023-09-04] MEDS: clonazePAM 1 MG TABLET PO ×2 (08:22→21:17)
[2023-09-04] MEDS: Fluticasone/Vilanterol 200/25 BLST.W.DEV 1 PUFF INHALE (08:22)
[2023-09-04] MEDS: Furosemide 20 MG TABLET PO (08:22)
[2023-09-04] MEDS: oxyCODONE HCl Immed Release 5 MG TABLET PO ×2 (08:28→21:30)
[2023-09-04] MEDS: Lurasidone HCl 40 MG TABLET 120 MG PO (08:51)
[2023-09-04 11:51] LABS: Glucose, Whole Blood 101 mg/dL (60-115)
--- NOTE | 2023-09-04 12:08 | P.PNIM_ITS ---
Subjective Subjective Date of Service: 09/04/23 Interval History: abd pain left hand pain Review of Systems has left hand pain(patient says she has it has from fall at home). abd pain improving Physical Exam 2 Vital Signs: Vital Signs: Last Vital Signs Temp 97.4 F 09/04/23 03:38 Pulse 74 09/04/23 08:24 Resp 17 09/04/23 08:24 BP 131/70 09/04/23 08:22 Pulse Ox 93 09/04/23 06:59 O2 Del Method Room Air 09/04/23 06:59 BMI result Body Mass Index 31.3 Appearance: Alert.? Oriented X3.?. cvs: rrr, [id number] , no murmur res: clear to auscultation ,no rhonchii or wheezing abd: has some abd pain ,Soft to palpation, nontender and no guarding left hand pain ext pulses present , no cyanosis . neuro: axo3 , nonfocal Objective Data Active Medications Acetaminophen/Butalbital/Caffeine (Butalb/Acetamin/Caff 50/325/40 Tablet) 1 tab PO Q6H PRN PRN Reason: Migraine Headache Albuterol Sulfate (Albuterol Sulfate 90 Mcg 8 Gm Inhaler) 2 puff INHALE Q6H PRN PRN Reason: Shortness Of Breath Amlodipine Besylate (Amlodipine Besylate 2.5 Mg Tablet) 2.5 mg PO DAILY [facility]; Protocol Last Admin: 09/04/23 08:21 Dose: 2.5 mg Documented By: CAROL Apixaban (Apixaban 5 Mg Tablet) 5 mg PO BID [facility] Last Admin: 09/04/23 08:21 Dose: 5 mg Documented By: CAROL Calcium Carbonate (Calcium Carbonate 750 Mg Tab.Chew) 750 mg PO Q4H PRN PRN Reason: Heartburn Clonazepam (Clonazepam 1 Mg Tablet) 1 mg PO DAILY [facility] Last Admin: 09/04/23 08:22 Dose: 1 mg Documented By: CAROL Clonazepam (Clonazepam 1 Mg Tablet) 1 mg PO DAILY@2200 [facility] Last Admin: 09/03/23 21:25 Dose: 1 mg Documented By: LEDY Docusate Sodium (Docusate Sodium 100 Mg Capsule) 100 mg PO BID [facility] Last Admin: 07/27/24 08:21 Dose: 100 mg Documented By: CAROL Fluconazole (Fluconazole 100 Mg Tablet) 100 mg PO DAILY [facility] Last Admin: 09/04/23 08:21 Dose: 100 mg Documented By: CAROL Fluticasone/Vilanterol (Fluticasone/Vilanterol 200/25 Blst.W.Dev) 1 puff INHALE RDAILY [facility] Last Admin: 09/04/23 08:22 Dose: 1 puff Documented By: BROOKS Furosemide (Furosemide 20 Mg Tablet) 20 mg PO DAILY [facility]; Protocol Last Admin: 09/04/23 08:22 Dose: 20 mg Documented By: CAROL Gabapentin (Gabapentin 300 Mg Capsule) 300 mg PO TID [facility] Last Admin: 09/04/23 08:22 Dose: 300 mg Documented By: CAROL Glucose (Glucose Gel 15 Gm Gel..Gram.) 15 gm PO Q15M PRN; Protocol PRN Reason: per Hypoglycemia Standing Ord. Hydromorphone HCl (Hydromorphone Hcl 0.5 Mg/0.5 Ml Syringe) 0.5 mg IVPUSH Q4H PRN; Protocol PRN Reason: Pain, Severe (Pain Scale 7-10) Last Admin: 09/01/23 08:55 Dose: 0.5 mg Documented By: RUPERTO Acetaminophen (Ofirmev) 1,000 mg in 100 mls @ 400 mls/hr IV Q6H [facility] Last Admin: 09/04/23 09:18 Dose: Not Given Documented By: CAROL Non-Admin Reason: Patient Refused Dextrose (D10) 250 mls @ 750 mls/hr IV Q15M PRN; Protocol PRN Reason: per Hypoglycemia Standing Ord. Metronidazole (Flagyl) 500 mg in 100 mls @ 100 mls/hr IV Q8H [facility] Last Admin: 09/04/23 11:58 Dose: 100 mls/hr Documented By: CAROL Insulin Human Lispro (Insulin Lispro 100 Unit/Ml 3 Ml Vial) 0 unit SUBCUT QIDACHS [facility]; Protocol Last Admin: 09/04/23 11:52 Dose: Not Given Documented By: CAROL Non-Admin Reason: No Insulin Coverage Levofloxacin (Levofloxacin 500 Mg Tablet) 500 mg PO Q24H [facility] Last Admin: 09/04/23 06:08 Dose: 500 mg Documented By: LEDY Lurasidone HCl (Lurasidone Hcl 40 Mg Tablet) 120 mg PO DAILY [facility] Last Admin: 09/04/23 08:51 Dose: 120 mg Documented By: CAROL Magnesium Hydroxide (Milk Of Magnesia 30 Ml Oral.Susp) 30 ml PO DAILY PRN PRN Reason: Constipation Last Admin: 09/03/23 11:12 Dose: 30 ml Documented By: MUNIRA Magnesium Oxide (Magnesium Oxide 400 Mg Tablet) 400 mg PO BIDPC [facility] Last Admin: 09/04/23 08:22 Dose: 400 mg Documented By: CAROL Melatonin (Melatonin 3 Mg Tablet) 6 mg PO BEDTIME PRN PRN Reason: Insomnia Melatonin (Melatonin 3 Mg Tablet) 18 mg PO BEDTIME [facility] Last Admin: 09/03/23 21:26 Dose: 18 mg Documented By: LEDY Non-Formulary Medication (Bupropion Hcl) 100 mg PO DAILY [facility] Omeprazole (Omeprazole 20 Mg Capsule.Dr) 20 mg PO DAILY [facility] Last Admin: 09/04/23 08:22 Dose: 20 mg Documented By: CAROL Ondansetron HCl (Ondansetron Hcl 4 Mg/2 Ml Vial) 4 mg IVPUSH QID PRN PRN Reason: Nausea Oxycodone HCl (Oxycodone Hcl Immed Release 5 Mg Tablet) 5 mg PO Q6H PRN PRN Reason: Pain, Moderate(Pain Scale 4-6) Last Admin: 09/04/23 08:28 Dose: 5 mg Documented By: CAROL Pramipexole Dihydrochloride (Pramipexole Di-Hcl 0.25 Mg Tablet) 0.25 mg PO DAILY [facility] Last Admin: 09/04/23 08:21 Dose: 0.25 mg Documented By: CAROL Sodium Chloride (0.9 % Sodium Chloride Flush 3 Ml Syringe) [facility] Last Admin: 09/04/23 08:22 Dose: 3 ml Documented By: CAROL Trazodone HCl (Trazodone Hcl 100 Mg Tablet) 300 mg PO BEDTIME [facility] Last Admin: 09/03/23 21:25 Dose: 300 mg Documented By: LEDY Vitamin D (Cholecalciferol (Vitamin D3) 25 Mcg Tablet) 50 mcg PO DAILY [facility] Last Admin: 09/04/23 08:22 Dose: 50 mcg Documented By: CAROL Vortioxetine (Vortioxetine Hydrobromide 20 Mg Tablet) 20 mg PO DAILY [facility] Last Admin: 09/04/23 08:22 Dose: 20 mg Documented By: CAROL Labs 08/30/23 00:02 09/03/23 05:50 Labs: Laboratory Results - last 24 hr 09/03/23 09/03/23 09/04/23 16:01 19:59 06:58 POC Glucose 101 123 H 87 09/04/23 11:37 POC Glucose 101 Microbiology Microbiology Results: Microbiology 08/30/23 00:21 Blood Culture - Final Blood - Venous No growth after 5 days. 08/30/23 00:21 Blood Culture - Final Blood - Venous No growth after 5 days. 08/30/23 00:23 Gram Stain - Final Abdomen - Abdominal Routine Culture - Final Streptococcus anginosus Assessment and Plan (1) Abdominal wall fluid collections: Status: Acute Assessment and Plan: 62-year-old female with history of moderate persistent asthma, hypertension, history of pulmonary embolism on Eliquis, haz-[id number] type 2 diabetes, rubs/leg syndrome, bipolar disorder, peripheral neuropathy, lumbar spondylolisthesis, GERD, history of polysubstance abuse in remission admitted to general surgery for evaluation abdominal pain in a patient who is 5 days s/p wound exploration with abdominal wall debridement of granulation tissue and incision and drainage of the abdominal wall abscess in the left upper quadrant for foreign body reaction of the abdominal wall following history of perforated marginal ulcer s/p Ruben patch. Consult was placed to hospitalist service due to syncopal episode which patient reports occurred 2 days ago Syncope: workup tele seems fine, orthostatic negative, echo:The left ventricular systolic function is normal. The calculated ejection fraction is 59% by biplane method. No obvious valvular pathology seen on this study. Head Ct negative for acute intracranial abnormality. No focal neuro deficits possible polypharmacy contributing: multiple sedating medications including gabapentin 800 mg twice daily, Lyrica 200 mg twice daily, clonazepam 1 mg every morning and 2 mg in the evening along with lorazepam 1 mg twice daily. She is taking oxycodone 5mg QID. She is also taking 300 mg of trazodone at bedtime in addition to Latuda. hold lyrica,adjusted gabapentin to 300mg TID,Stop lorazepam. Continue clonazepam 1mg daily and adjusted evening dose to 1mg. pain management per general surgery. Change oxycodone to prn, not scheduled hand pain left sided : xray shows Mild to moderate degenerative changes of the left hand. No fracture. pain management and encouarge rom. hypomagnesemia : repleted continue po magnesium abd wall collections : vanco trough 15-16.2 previous abd cultures (08/22)-klebsella-senstive to levaquin abd cultures (08/29) -strep anginosus pansenstive d/w surgery and ID-on levaquin/flagyl, vanco stopped . hypertension-blood pressure is soft. starting small dose amlodipine, Lasix, metoprolol. Resume as blood pressure improves as appropriate type 2 diabetes-diet controlled -change to diabetic diet -POC glucose, Admelog sliding scale bipolar disorder continue Latuda, trazodone. her home psych meds were adjusted as above will add psych eval for psych medication adjustments. hx of pulm embolism : continue apixiban. GERD-PPI Quality Stroke Does the patient have a stroke diagnosis?: No VTE Prior VTE?: No VTE Risk Level:: Surgical - moderate VTE Device Contraindication: N/A - Device Ordered VTE Drug Contraindication: N/A - Med Ordered
[2023-09-04] MEDS: ondansetron HCL 4 MG/2 ML VIAL IVPUSH (12:29)
--- NOTE | 2023-09-04 13:25 | PC.NURSE ---
Pt vomited 100ml of undigested food at 12:20, PRN zofran given with good effect.
--- NOTE | 2023-09-04 14:51 | P.PNGS_ITS ---
Subjective Subjective Date of Service: 09/04/23 Interval history: Patient complained of nausea earlier this morning. Has since resolved. Tolerating her diet. Has had flatus but claims not to have had a bowel movement since last week. Physical Exam 2 Vital Signs: Vital Signs: Last Vital Signs Temp 97.3 F 09/04/23 13:44 Pulse 68 09/04/23 13:44 Resp 18 09/04/23 13:44 BP 116/60 09/04/23 13:44 Pulse Ox 92 09/04/23 13:44 O2 Del Method Room Air 09/04/23 13:44 BMI result Body Mass Index 31.3 GI: Other: Abdomen is soft. Packing and dressing changed. Objective Data Active Medications Acetaminophen/Butalbital/Caffeine (Butalb/Acetamin/Caff 50/325/40 Tablet) 1 tab PO Q6H PRN PRN Reason: Migraine Headache Albuterol Sulfate (Albuterol Sulfate 90 Mcg 8 Gm Inhaler) 2 puff INHALE Q6H PRN PRN Reason: Shortness Of Breath Amlodipine Besylate (Amlodipine Besylate 2.5 Mg Tablet) 2.5 mg PO DAILY [facility]; Protocol Last Admin: 09/04/23 08:21 Dose: 2.5 mg Documented By: CAROL Apixaban (Apixaban 5 Mg Tablet) 5 mg PO BID [facility] Last Admin: 09/04/23 08:21 Dose: 5 mg Documented By: CAROL Calcium Carbonate (Calcium Carbonate 750 Mg Tab.Chew) 750 mg PO Q4H PRN PRN Reason: Heartburn Clonazepam (Clonazepam 1 Mg Tablet) 1 mg PO DAILY [facility] Last Admin: 09/04/23 08:22 Dose: 1 mg Documented By: CAROL Clonazepam (Clonazepam 1 Mg Tablet) 1 mg PO DAILY@2200 [facility] Last Admin: 09/03/23 21:25 Dose: 1 mg Documented By: LEDY Docusate Sodium (Docusate Sodium 100 Mg Capsule) 100 mg PO BID [facility] Last Admin: 09/04/23 08:21 Dose: 100 mg Documented By: CAROL Fluconazole (Fluconazole 100 Mg Tablet) 100 mg PO DAILY [facility] Last Admin: 09/04/23 08:21 Dose: 100 mg Documented By: CAROL Fluticasone/Vilanterol (Fluticasone/Vilanterol 200/25 Blst.W.Dev) 1 puff INHALE RDAILY [facility] Last Admin: 09/04/23 08:22 Dose: 1 puff Documented By: BROOKS Furosemide (Furosemide 20 Mg Tablet) 20 mg PO DAILY [facility]; Protocol Last Admin: 09/04/23 08:22 Dose: 20 mg Documented By: CAROL Gabapentin (Gabapentin 300 Mg Capsule) 300 mg PO TID [facility] Last Admin: 09/04/23 08:22 Dose: 300 mg Documented By: CAROL Glucose (Glucose Gel 15 Gm Gel..Gram.) 15 gm PO Q15M PRN; Protocol PRN Reason: per Hypoglycemia Standing Ord. Hydromorphone HCl (Hydromorphone Hcl 0.5 Mg/0.5 Ml Syringe) 0.5 mg IVPUSH Q4H PRN; Protocol PRN Reason: Pain, Severe (Pain Scale 7-10) Last Admin: 09/01/23 08:55 Dose: 0.5 mg Documented By: RUPERTO Acetaminophen (Ofirmev) 1,000 mg in 100 mls @ 400 mls/hr IV Q6H [facility] Last Admin: 09/04/23 09:18 Dose: Not Given Documented By: CAROL Non-Admin Reason: Patient Refused Dextrose (D10) 250 mls @ 750 mls/hr IV Q15M PRN; Protocol PRN Reason: per Hypoglycemia Standing Ord. Metronidazole (Flagyl) 500 mg in 100 mls @ 100 mls/hr IV Q8H [facility] Last Infusion: 09/04/23 12:58 Dose: Infused Documented By: CAROL Insulin Human Lispro (Insulin Lispro 100 Unit/Ml 3 Ml Vial) 0 unit SUBCUT QIDACHS [facility]; Protocol Last Admin: 09/04/23 11:52 Dose: Not Given Documented By: CAROL Non-Admin Reason: No Insulin Coverage Levofloxacin (Levofloxacin 500 Mg Tablet) 500 mg PO Q24H [facility] Last Admin: 09/04/23 06:08 Dose: 500 mg Documented By: LEDY Lurasidone HCl (Lurasidone Hcl 40 Mg Tablet) 120 mg PO DAILY [facility] Last Admin: 09/04/23 08:51 Dose: 120 mg Documented By: CAROL Magnesium Hydroxide (Milk Of Magnesia 30 Ml Oral.Susp) 30 ml PO DAILY PRN PRN Reason: Constipation Last Admin: 09/03/23 11:12 Dose: 30 ml Documented By: MUNIRA Magnesium Oxide (Magnesium Oxide 400 Mg Tablet) 400 mg PO BIDPC [facility] Last Admin: 09/04/23 08:22 Dose: 400 mg Documented By: CAROL Melatonin (Melatonin 3 Mg Tablet) 6 mg PO BEDTIME PRN PRN Reason: Insomnia Melatonin (Melatonin 3 Mg Tablet) 18 mg PO BEDTIME [facility] Last Admin: 09/03/23 21:26 Dose: 18 mg Documented By: LEDY Metronidazole (Metronidazole 500 Mg Tablet) 500 mg PO Q12H [facility] Last Admin: 09/04/23 12:17 Dose: Not Given Documented By: CAROL Non-Admin Reason: IV Flagyl infusing Non-Formulary Medication (Bupropion Hcl) 100 mg PO DAILY [facility] Omeprazole (Omeprazole 20 Mg Capsule.Dr) 20 mg PO DAILY [facility] Last Admin: 09/04/23 08:22 Dose: 20 mg Documented By: CAROL Ondansetron HCl (Ondansetron Hcl 4 Mg/2 Ml Vial) 4 mg IVPUSH QID PRN PRN Reason: Nausea Last Admin: 09/04/23 12:29 Dose: 4 mg Documented By: CAROL Oxycodone HCl (Oxycodone Hcl Immed Release 5 Mg Tablet) 5 mg PO Q6H PRN PRN Reason: Pain, Moderate(Pain Scale 4-6) Last Admin: 09/04/23 08:28 Dose: 5 mg Documented By: CAROL Pramipexole Dihydrochloride (Pramipexole Di-Hcl 0.25 Mg Tablet) 0.25 mg PO DAILY [facility] Last Admin: 09/04/23 08:21 Dose: 0.25 mg Documented By: CAROL Sodium Chloride (0.9 % Sodium Chloride Flush 3 Ml Syringe) 3 ml IVFLUSH QSHIFT [facility] Last Admin: 09/04/23 08:22 Dose: 3 ml Documented By: CAROL Trazodone HCl (Trazodone Hcl 100 Mg Tablet) 300 mg PO BEDTIME [facility] Last Admin: 09/03/23 21:25 Dose: 300 mg Documented By: LEDY Vitamin D (Cholecalciferol (Vitamin D3) 25 Mcg Tablet) 50 mcg PO DAILY [facility] Last Admin: 09/04/23 08:22 Dose: 50 mcg Documented By: CAROL Vortioxetine (Vortioxetine Hydrobromide 20 Mg Tablet) 20 mg PO DAILY [facility] Last Admin: 09/04/23 08:22 Dose: 20 mg Documented By: CAROL Labs 08/30/23 00:02 09/03/23 05:50 Labs: Laboratory Results - last 24 hr 09/03/23 09/03/23 09/04/23 16:01 19:59 06:58 POC Glucose 101 123 H 87 09/04/23 11:37 POC Glucose 101 Microbiology Microbiology Results: Microbiology 08/30/23 00:21 Blood Culture - Final Blood - Venous No growth after 5 days. 08/30/23 00:21 Blood Culture - Final Blood - Venous No growth after 5 days. Procedures Date of Service Date of Service: 09/04/23 Progress Note: A&P Assessment and plan (1) Abdominal wall fluid collections: Status: Acute Plan Continue current plan; packing changes , IV antibiotics, diet as tolerated, out of bed Time Spent With Patient Time: Total time managing care of this patient today ____ minutes. Quality Stroke Does the patient have a stroke diagnosis?: No VTE Prior VTE?: No VTE Risk Level:: Surgical - moderate VTE Device Contraindication: N/A - Device Ordered VTE Drug Contraindication: N/A - Med Ordered
[2023-09-04 16:07] LABS: Glucose, Whole Blood 82 mg/dL (60-115)
[2023-09-04 20:32] LABS: Glucose, Whole Blood 103 mg/dL (60-115)
[2023-09-04] MEDS: traZODone HCL 100 MG TABLET 300 MG PO (21:17)
[2023-09-04] MEDS: Melatonin 3 MG TABLET 18 MG PO (21:18)
[2023-09-05] VITALS (9 sets, daily range): BP systolic 108–143; BP diastolic 53–78; PULSE 60–76; RESP 16–20; TEMP 36.1–36.8; O2SAT 91–96
[2023-09-05] MEDS: metroNIDAZOLE 500 MG TABLET PO ×3 (01:01→23:49)
[2023-09-05] MEDS: oxyCODONE HCl Immed Release 5 MG TABLET PO ×3 (05:36→22:07)
[2023-09-05] MEDS: levoFLOXacin 500 MG TABLET PO (05:36)
[2023-09-05 07:43] LABS: Glucose, Whole Blood 77 mg/dL (60-115)
[2023-09-05] MEDS: Omeprazole 20 MG CAPSULE.DR PO (07:53)
[2023-09-05] MEDS: Gabapentin 300 MG CAPSULE PO ×3 (07:53→21:43)
[2023-09-05] MEDS: Apixaban 5 MG TABLET PO ×2 (07:53→21:44)
[2023-09-05] MEDS: clonazePAM 1 MG TABLET PO ×2 (07:53→21:43)
[2023-09-05] MEDS: Magnesium Oxide 400 MG TABLET PO ×2 (07:53→17:09)
[2023-09-05] MEDS: Cholecalciferol (Vitamin D3) 25 MCG TABLET 50 MCG PO (07:53)
[2023-09-05] MEDS: Vortioxetine Hydrobromide 20 MG TABLET PO (07:53)
[2023-09-05] MEDS: Furosemide 20 MG TABLET PO (07:53)
[2023-09-05] MEDS: Lurasidone HCl 40 MG TABLET 120 MG PO (07:53)
[2023-09-05] MEDS: amLODIPine Besylate 2.5 MG TABLET PO (07:54)
[2023-09-05] MEDS: Fluconazole 100 MG TABLET PO (07:54)
[2023-09-05] MEDS: Pramipexole Di-HCL 0.25 MG TABLET PO (07:54)
[2023-09-05] MEDS: Docusate Sodium 100 MG CAPSULE PO ×2 (07:54→21:44)
[2023-09-05] MEDS: 0.9 % Sodium Chloride Flush 3 ML SYRINGE IVFLUSH ×3 (08:00→22:08)
[2023-09-05] MEDS: polyethylene glycoL 3350 17 GM POWD.PACK PO (08:17)
[2023-09-05] MEDS: Fluticasone/Vilanterol 200/25 BLST.W.DEV 1 PUFF INHALE (08:26)
--- NOTE | 2023-09-05 11:23 | PC.NURSE ---
Abd dressing saturated through, moderate amount of [place]/serous fluid noted on old dressing. General surg MD Parish made aware, dressing taken down by this RN, packing remains in place, new fluff gauze placed over packing then abd pad applied. Pt tolerated well.
[2023-09-05 11:37] LABS: Glucose, Whole Blood 93 mg/dL (60-115)
--- NOTE | 2023-09-05 11:40 | HO.PM.IMPN ---
Subjective Subjective Date of Service: 09/05/23 Interval History: follow up Review of Systems abd pain seems better no fevers Physical Exam Vital Signs: Vital Signs: Last Vital Signs Temp 97.3 F 09/05/23 07:07 Pulse 60 09/05/23 08:27 Resp 20 09/05/23 08:27 BP 117/56 L 09/05/23 07:07 Pulse Ox 94 09/05/23 07:07 O2 Del Method Room Air 09/05/23 07:07 BMI result Body Mass Index 31.3 Appearance: Alert.? Oriented X3.?. cvs: rrr, [id number] , no murmur res: clear to auscultation ,no rhonchii or wheezing abd: has some abd pain ,Soft to palpation, nontender and no guarding left hand pain ext pulses present , no cyanosis . neuro: axo3 , nonfocal Objective Data Active Medications Acetaminophen/Butalbital/Caffeine (Butalb/Acetamin/Caff 50/325/40 Tablet) 1 tab PO Q6H PRN PRN Reason: Migraine Headache Albuterol Sulfate (Albuterol Sulfate 90 Mcg 8 Gm Inhaler) 2 puff INHALE Q6H PRN PRN Reason: Shortness Of Breath Amlodipine Besylate (Amlodipine Besylate 2.5 Mg Tablet) 2.5 mg PO DAILY [facility]; Protocol Last Admin: 09/05/23 07:54 Dose: 2.5 mg Documented By: CAROL Apixaban (Apixaban 5 Mg Tablet) 5 mg PO BID [facility] Last Admin: 09/05/23 07:53 Dose: 5 mg Documented By: CAROL Calcium Carbonate (Calcium Carbonate 750 Mg Tab.Chew) 750 mg PO Q4H PRN PRN Reason: Heartburn Clonazepam (Clonazepam 1 Mg Tablet) 1 mg PO DAILY [facility] Last Admin: 09/05/23 07:53 Dose: 1 mg Documented By: CAROL Clonazepam (Clonazepam 1 Mg Tablet) 1 mg PO DAILY@2200 [facility] Last Admin: 09/04/23 21:17 Dose: 1 mg Documented By: LEDY Docusate Sodium (Docusate Sodium 100 Mg Capsule) 100 mg PO BID [facility] Last Admin: 09/05/23 07:54 Dose: 100 mg Documented By: CAROL Fluconazole (Fluconazole 100 Mg Tablet) 100 mg PO DAILY [facility] Last Admin: 09/05/23 07:54 Dose: 100 mg Documented By: CAROL Fluticasone/Vilanterol (Fluticasone/Vilanterol 200/25 Blst.W.Dev) 1 puff INHALE RDAILY [facility] Last Admin: 09/05/23 08:26 Dose: 1 puff Documented By: BROOKS Furosemide (Furosemide 20 Mg Tablet) 20 mg PO DAILY [facility]; Protocol Last Admin: 09/05/23 07:53 Dose: 20 mg Documented By: CAROL Gabapentin (Gabapentin 300 Mg Capsule) 300 mg PO TID [facility] Last Admin: 09/05/23 07:53 Dose: 300 mg Documented By: CAROL Glucose (Glucose Gel 15 Gm Gel..Gram.) 15 gm PO Q15M PRN; Protocol PRN Reason: per Hypoglycemia Standing Ord. Hydromorphone HCl (Hydromorphone Hcl 0.5 Mg/0.5 Ml Syringe) 0.5 mg IVPUSH Q4H PRN; Protocol PRN Reason: Pain, Severe (Pain Scale 7-10) Last Admin: 09/01/23 08:55 Dose: 0.5 mg Documented By: RUPERTO Acetaminophen (Ofirmev) 1,000 mg in 100 mls @ 400 mls/hr IV Q6H [facility] Last Admin: 09/05/23 08:18 Dose: Not Given Documented By: CAROL Non-Admin Reason: Patient Refused Dextrose (D10) 250 mls @ 750 mls/hr IV Q15M PRN; Protocol PRN Reason: per Hypoglycemia Standing Ord. Insulin Human Lispro (Insulin Lispro 100 Unit/Ml 3 Ml Vial) 0 unit SUBCUT QIDACHS [facility]; Protocol Last Admin: 09/05/23 07:46 Dose: Not Given Documented By: CAROL Non-Admin Reason: No Insulin Coverage Levofloxacin (Levofloxacin 500 Mg Tablet) 500 mg PO Q24H [facility] Last Admin: 09/05/23 05:36 Dose: 500 mg Documented By: LEDY Lurasidone HCl (Lurasidone Hcl 40 Mg Tablet) 120 mg PO DAILY [facility] Last Admin: 09/05/23 07:53 Dose: 120 mg Documented By: CAROL Magnesium Hydroxide (Milk Of Magnesia 30 Ml Oral.Susp) 30 ml PO DAILY PRN PRN Reason: Constipation Last Admin: 09/03/23 11:12 Dose: 30 ml Documented By: MUNIRA Magnesium Oxide (Magnesium Oxide 400 Mg Tablet) 400 mg PO BIDPC [facility] Last Admin: 09/05/23 07:53 Dose: 400 mg Documented By: CAROL Melatonin (Melatonin 3 Mg Tablet) 6 mg PO BEDTIME PRN PRN Reason: Insomnia Melatonin (Melatonin 3 Mg Tablet) 18 mg PO BEDTIME [facility] Last Admin: 09/04/23 21:18 Dose: 18 mg Documented By: LEDY Metronidazole (Metronidazole 500 Mg Tablet) 500 mg PO Q12H [facility] Last Admin: 09/05/23 01:01 Dose: 500 mg Documented By: LEDY Non-Formulary Medication (Bupropion Hcl) 100 mg PO DAILY [facility] Omeprazole (Omeprazole 20 Mg Capsule.Dr) 20 mg PO DAILY [facility] Last Admin: 09/05/23 07:53 Dose: 20 mg Documented By: CAROL Ondansetron HCl (Ondansetron Hcl 4 Mg/2 Ml Vial) 4 mg IVPUSH QID PRN PRN Reason: Nausea Last Admin: 09/04/23 12:29 Dose: 4 mg Documented By: CAROL Oxycodone HCl (Oxycodone Hcl Immed Release 5 Mg Tablet) 5 mg PO Q6H PRN PRN Reason: Pain, Moderate(Pain Scale 4-6) Last Admin: 09/05/23 05:36 Dose: 5 mg Documented By: LEDY Polyethylene Glycol (Polyethylene Glycol 3350 17 Gm Powd.Pack) 17 gm PO BID [facility] Last Admin: 09/05/23 08:17 Dose: 17 gm Documented By: CAROL Pramipexole Dihydrochloride (Pramipexole Di-Hcl 0.25 Mg Tablet) 0.25 mg PO DAILY [facility] Last Admin: 09/05/23 07:54 Dose: 0.25 mg Documented By: CAROL Sodium Biphosphate/Sodium Phosphate (Sodium Phosphate,[place]-Dibasic 133 Ml Enema) 133 ml [place] ONCE PRN PRN Reason: Constipation Sodium Chloride (0.9 % Sodium Chloride Flush 3 Ml Syringe) 3 ml IVFLUSH QSHIFT [facility] Last Admin: 09/05/23 08:00 Dose: 3 ml Documented By: CAROL Trazodone HCl (Trazodone Hcl 100 Mg Tablet) 300 mg PO BEDTIME [facility] Last Admin: 09/04/23 21:17 Dose: 300 mg Documented By: LEDY Vitamin D (Cholecalciferol (Vitamin D3) 25 Mcg Tablet) 50 mcg PO DAILY [facility] Last Admin: 09/05/23 07:53 Dose: 50 mcg Documented By: CAROL Vortioxetine (Vortioxetine Hydrobromide 20 Mg Tablet) 20 mg PO DAILY [facility] Last Admin: 09/05/23 07:53 Dose: 20 mg Documented By: CAROL Labs 08/30/23 00:02 09/03/23 05:50 Labs: Laboratory Results - last 24 hr 09/04/23 09/04/23 09/04/23 11:37 16:04 20:26 POC Glucose 101 82 103 09/05/23 09/05/23 07:11 11:33 POC Glucose 77 93 Assessment and Plan (1) Abdominal wall fluid collections: Status: Acute Assessment and Plan: 62-year-old female with history of moderate persistent asthma, hypertension, history of pulmonary embolism on Eliquis, [id number] type 2 diabetes, rubs/leg syndrome, bipolar disorder, peripheral neuropathy, lumbar spondylolisthesis, GERD, history of polysubstance abuse in remission admitted to general surgery for evaluation abdominal pain in a patient who is 5 days s/p wound exploration with abdominal wall debridement of granulation tissue and incision and drainage of the abdominal wall abscess in the left upper quadrant for foreign body reaction of the abdominal wall following history of perforated marginal ulcer s/p Ruben patch. Consult was placed to hospitalist service due to syncopal episode which patient reports occurred 2 days ago Syncope: workup tele seems fine, orthostatic negative, echo:The left ventricular systolic function is normal. The calculated ejection fraction is 59% by biplane method. No obvious valvular pathology seen on this study. Head Ct negative for acute intracranial abnormality. No focal neuro deficits possible polypharmacy contributing: multiple sedating medications including gabapentin 800 mg twice daily, Lyrica 200 mg twice daily, clonazepam 1 mg every morning and 2 mg in the evening along with lorazepam 1 mg twice daily. She is taking oxycodone 5mg QID. She is also taking 300 mg of trazodone at bedtime in addition to Latuda. hold lyrica,adjusted gabapentin to 300mg TID,Stop lorazepam. Continue clonazepam 1mg daily and adjusted evening dose to 1mg. pain management per general surgery. Change oxycodone to prn, not scheduled hand pain left sided : xray shows Mild to moderate degenerative changes of the left hand. No fracture. pain management and encouarge rom. hypomagnesemia : repleted continue po magnesium abd wall collections : vanco trough 15-16.2 previous abd cultures (08/22)-klebsella-senstive to levaquin abd cultures (08/29) -strep anginosus pansenstive d/w surgery and ID-on levaquin/flagyl, vanco stopped . hypertension-blood pressure is soft. starting small dose amlodipine, Lasix, metoprolol. Resume as blood pressure improves as appropriate type 2 diabetes-diet controlled -change to diabetic diet -POC glucose, Admelog sliding scale bipolar disorder continue Latuda, trazodone. her home psych meds were adjusted as above will add psych eval for psych medication adjustments. hx of pulm embolism : continue apixiban. GERD-PPI dispo:as per primary team Quality Stroke Does the patient have a stroke diagnosis?: No VTE Prior VTE?: No VTE Risk Level:: Surgical - moderate VTE Device Contraindication: N/A - Device Ordered VTE Drug Contraindication: N/A - Med Ordered
[2023-09-05] MEDS: ondansetron HCL 4 MG/2 ML VIAL IVPUSH (13:46)
--- NOTE | 2023-09-05 14:24 | P.PNGS_ITS ---
Subjective Subjective Date of Service: 09/05/23 Interval history: Patient had episode of vomiting early this morning. She feels slightly better now. Physical Exam 2 Vital Signs: Vital Signs: Last Vital Signs Temp 97.7 F 09/05/23 12:00 Pulse 76 09/05/23 12:00 Resp 20 09/05/23 12:00 BP 111/53 L 09/05/23 12:00 Pulse Ox 96 09/05/23 12:00 O2 Del Method Room Air 09/05/23 12:00 BMI result Body Mass Index 31.3 GI: Other: Abdomen is soft. Packing and dressing changed and replaced. Well tolerated. Minimal purulence retrieved. Objective Data Active Medications Acetaminophen/Butalbital/Caffeine (Butalb/Acetamin/Caff 50/325/40 Tablet) 1 tab PO Q6H PRN PRN Reason: Migraine Headache Albuterol Sulfate (Albuterol Sulfate 90 Mcg 8 Gm Inhaler) 2 puff INHALE Q6H PRN PRN Reason: Shortness Of Breath Amlodipine Besylate (Amlodipine Besylate 2.5 Mg Tablet) 2.5 mg PO DAILY [facility]; Protocol Last Admin: 09/05/23 07:54 Dose: 2.5 mg Documented By: CAROL Apixaban (Apixaban 5 Mg Tablet) 5 mg PO BID [facility] Last Admin: 09/05/23 07:53 Dose: 5 mg Documented By: CAROL Calcium Carbonate (Calcium Carbonate 750 Mg Tab.Chew) 750 mg PO Q4H PRN PRN Reason: Heartburn Clonazepam (Clonazepam 1 Mg Tablet) 1 mg PO DAILY [facility] Last Admin: 09/05/23 07:53 Dose: 1 mg Documented By: CAROL Clonazepam (Clonazepam 1 Mg Tablet) 1 mg PO DAILY@2200 [facility] Last Admin: 09/04/23 21:17 Dose: 1 mg Documented By: LEDY Docusate Sodium (Docusate Sodium 100 Mg Capsule) 100 mg PO BID [facility] Last Admin: 09/05/23 07:54 Dose: 100 mg Documented By: CAROL Fluconazole (Fluconazole 100 Mg Tablet) 100 mg PO DAILY [facility] Last Admin: 09/05/23 07:54 Dose: 100 mg Documented By: CAROL Fluticasone/Vilanterol (Fluticasone/Vilanterol 200/25 Blst.W.Dev) 1 puff INHALE RDAILY [facility] Last Admin: 09/05/23 08:26 Dose: 1 puff Documented By: BROOKS Furosemide (Furosemide 20 Mg Tablet) 20 mg PO DAILY [facility]; Protocol Last Admin: 09/05/23 07:53 Dose: 20 mg Documented By: CAROL Gabapentin (Gabapentin 300 Mg Capsule) 300 mg PO TID [facility] Last Admin: 09/05/23 07:53 Dose: 300 mg Documented By: CAROL Glucose (Glucose Gel 15 Gm Gel..Gram.) 15 gm PO Q15M PRN; Protocol PRN Reason: per Hypoglycemia Standing Ord. Hydromorphone HCl (Hydromorphone Hcl 0.5 Mg/0.5 Ml Syringe) 0.5 mg IVPUSH Q4H PRN; Protocol PRN Reason: Pain, Severe (Pain Scale 7-10) Last Admin: 09/01/23 08:55 Dose: 0.5 mg Documented By: RUPERTO Acetaminophen (Ofirmev) 1,000 mg in 100 mls @ 400 mls/hr IV Q6H [facility] Last Admin: 09/05/23 08:18 Dose: Not Given Documented By: CAROL Non-Admin Reason: Patient Refused Dextrose (D10) 250 mls @ 750 mls/hr IV Q15M PRN; Protocol PRN Reason: per Hypoglycemia Standing Ord. Insulin Human Lispro (Insulin Lispro 100 Unit/Ml 3 Ml Vial) 0 unit SUBCUT QIDACHS [facility]; Protocol Last Admin: 09/05/23 12:54 Dose: Not Given Documented By: CAROL Non-Admin Reason: No Insulin Coverage Levofloxacin (Levofloxacin 500 Mg Tablet) 500 mg PO Q24H [facility] Last Admin: 09/05/23 05:36 Dose: 500 mg Documented By: LEDY Lurasidone HCl (Lurasidone Hcl 40 Mg Tablet) 120 mg PO DAILY [facility] Last Admin: 09/05/23 07:53 Dose: 120 mg Documented By: CAROL Magnesium Hydroxide (Milk Of Magnesia 30 Ml Oral.Susp) 30 ml PO DAILY PRN PRN Reason: Constipation Last Admin: 09/03/23 11:12 Dose: 30 ml Documented By: MUNIRA Magnesium Oxide (Magnesium Oxide 400 Mg Tablet) 400 mg PO BIDPC [facility] Last Admin: 09/05/23 07:53 Dose: 400 mg Documented By: CAROL Melatonin (Melatonin 3 Mg Tablet) 6 mg PO BEDTIME PRN PRN Reason: Insomnia Melatonin (Melatonin 3 Mg Tablet) 18 mg PO BEDTIME [facility] Last Admin: 09/04/23 21:18 Dose: 18 mg Documented By: LEDY Metronidazole (Metronidazole 500 Mg Tablet) 500 mg PO Q12H [facility] Last Admin: 09/05/23 12:55 Dose: 500 mg Documented By: CAROL Non-Formulary Medication (Bupropion Hcl) 100 mg PO DAILY [facility] Omeprazole (Omeprazole 20 Mg Capsule.Dr) 20 mg PO DAILY [facility] Last Admin: 09/05/23 07:53 Dose: 20 mg Documented By: CAROL Ondansetron HCl (Ondansetron Hcl 4 Mg/2 Ml Vial) 4 mg IVPUSH QID PRN PRN Reason: Nausea Last Admin: 09/05/23 13:46 Dose: 4 mg Documented By: CAROL Oxycodone HCl (Oxycodone Hcl Immed Release 5 Mg Tablet) 5 mg PO Q6H PRN PRN Reason: Pain, Moderate(Pain Scale 4-6) Last Admin: 09/05/23 12:57 Dose: 5 mg Documented By: CAROL Polyethylene Glycol (Polyethylene Glycol 3350 17 Gm Powd.Pack) 17 gm PO BID [facility] Last Admin: 09/05/23 08:17 Dose: 17 gm Documented By: CAROL Pramipexole Dihydrochloride (Pramipexole Di-Hcl 0.25 Mg Tablet) 0.25 mg PO DAILY [facility] Last Admin: 09/05/23 07:54 Dose: 0.25 mg Documented By: CAROL Sodium Biphosphate/Sodium Phosphate (Sodium Phosphate,[place]-Dibasic 133 Ml Enema) 133 ml [place] ONCE PRN PRN Reason: Constipation Sodium Chloride (0.9 % Sodium Chloride Flush 3 Ml Syringe) 3 ml IVFLUSH QSHIFT [facility] Last Admin: 09/05/23 08:00 Dose: 3 ml Documented By: CAROL Trazodone HCl (Trazodone Hcl 100 Mg Tablet) 300 mg PO BEDTIME [facility] Last Admin: 07/27/24 21:17 Dose: 300 mg Documented By: LEDY Vitamin D (Cholecalciferol (Vitamin D3) 25 Mcg Tablet) 50 mcg PO DAILY [facility] Last Admin: 09/05/23 07:53 Dose: 50 mcg Documented By: CAROL Vortioxetine (Vortioxetine Hydrobromide 20 Mg Tablet) 20 mg PO DAILY [facility] Last Admin: 09/05/23 07:53 Dose: 20 mg Documented By: CAROL Labs 08/30/23 00:02 09/03/23 05:50 Labs: Laboratory Results - last 24 hr 09/04/23 09/04/23 09/05/23 16:04 20:26 07:11 POC Glucose 82 103 77 09/05/23 11:33 POC Glucose 93 Procedures Date of Service Date of Service: 09/05/23 Progress Note: A&P Assessment and plan (1) Abdominal wall fluid collections: Status: Acute Plan Slowly advance diet, out of bed, incentive spirometry, local wound care, IV antibiotics. May eventually need wound exploration Time Spent With Patient Time: Total time managing care of this patient today ____ minutes. Quality Stroke Does the patient have a stroke diagnosis?: No VTE Prior VTE?: No VTE Risk Level:: Surgical - moderate VTE Device Contraindication: N/A - Device Ordered VTE Drug Contraindication: N/A - Med Ordered
--- NOTE | 2023-09-05 14:54 | PC.NURSE ---
MD made aware pt vomiting, zofran given at 13:46 with good effect.
[2023-09-05 16:14] LABS: Glucose, Whole Blood 101 mg/dL (60-115)
[2023-09-05 20:35] LABS: Glucose, Whole Blood 96 mg/dL (60-115)
[2023-09-05] MEDS: traZODone HCL 100 MG TABLET 300 MG PO (21:44)
[2023-09-05] MEDS: Melatonin 3 MG TABLET 18 MG PO (21:44)
[2023-09-06] VITALS (7 sets, daily range): BP systolic 116–168; BP diastolic 61–93; PULSE 67–77; RESP 16–20; TEMP 36.2–36.8; O2SAT 93–96
--- NOTE | 2023-09-06 02:50 | PC.NURSE ---
Patient ambulates to bathroom with supervision due to at home fall, and is using walker. Pt only has cane at home and would like walker for safety.
[2023-09-06] MEDS: oxyCODONE HCl Immed Release 5 MG TABLET PO ×2 (04:31→08:35)
[2023-09-06] MEDS: levoFLOXacin 500 MG TABLET PO (06:44)
[2023-09-06 07:23] LABS: Glucose, Whole Blood 80 mg/dL (60-115)
[2023-09-06] MEDS: Lurasidone HCl 40 MG TABLET 120 MG PO (08:35)
[2023-09-06] MEDS: Gabapentin 300 MG CAPSULE PO ×3 (08:35→21:27)
[2023-09-06] MEDS: Vortioxetine Hydrobromide 20 MG TABLET PO (08:35)
[2023-09-06] MEDS: Magnesium Oxide 400 MG TABLET PO ×2 (08:35→16:58)
[2023-09-06] MEDS: Omeprazole 20 MG CAPSULE.DR PO (08:35)
[2023-09-06] MEDS: Apixaban 5 MG TABLET PO ×2 (08:35→21:28)
[2023-09-06] MEDS: amLODIPine Besylate 2.5 MG TABLET PO (08:35)
[2023-09-06] MEDS: Cholecalciferol (Vitamin D3) 25 MCG TABLET 50 MCG PO (08:36)
[2023-09-06] MEDS: Furosemide 20 MG TABLET PO (08:36)
[2023-09-06] MEDS: polyethylene glycoL 3350 17 GM POWD.PACK PO (08:36)
[2023-09-06] MEDS: Docusate Sodium 100 MG CAPSULE PO ×2 (08:36→21:28)
[2023-09-06] MEDS: 0.9 % Sodium Chloride Flush 3 ML SYRINGE IVFLUSH ×2 (08:36→14:47)
[2023-09-06] MEDS: clonazePAM 1 MG TABLET PO ×2 (08:36→21:27)
[2023-09-06] MEDS: Pramipexole Di-HCL 0.25 MG TABLET PO (08:36)
[2023-09-06] MEDS: Fluconazole 100 MG TABLET PO (08:36)
[2023-09-06] MEDS: oxyCODONE HCl Immed Release 5 MG TABLET 10 MG PO ×3 (09:03→21:32)
--- NOTE | 2023-09-06 11:08 | MHC.CM.PN ---
PATIENT NOT MEDICALLY CLEARED FOR DC AT THIS TIME. NO CHANGE TO DC PLAN. CM WILL CONTINUE TO FOLLOW.
[2023-09-06 11:26] LABS: Glucose, Whole Blood 78 mg/dL (60-115)
[2023-09-06] MEDS: metroNIDAZOLE 500 MG TABLET PO (12:08)
--- NOTE | 2023-09-06 12:49 | P.PNIM_ITS ---
Subjective Subjective Date of Service: 09/07/23 Interval History: follow up Review of Systems abd pain seems better. Physical Exam 2 Vital Signs: Vital Signs: Last Vital Signs Temp 97.1 F 09/06/23 12:00 Pulse 69 09/06/23 12:00 Resp 18 09/06/23 12:00 BP 144/72 H 09/06/23 12:00 Pulse Ox 95 09/06/23 12:00 O2 Del Method Room Air 09/06/23 12:00 BMI result Body Mass Index 31.3 Appearance: Alert.? Oriented X3.?. cvs: rrr, [id number] , no murmur res: clear to auscultation ,no rhonchii or wheezing abd: has some abd pain ,Soft to palpation, nontender and no guarding left hand pain ext pulses present , no cyanosis . neuro: axo3 , nonfocal Objective Data Active Medications Acetaminophen/Butalbital/Caffeine (Butalb/Acetamin/Caff 50/325/40 Tablet) 1 tab PO Q6H PRN PRN Reason: Migraine Headache Albuterol Sulfate (Albuterol Sulfate 90 Mcg 8 Gm Inhaler) 2 puff INHALE Q6H PRN PRN Reason: Shortness Of Breath Amlodipine Besylate (Amlodipine Besylate 2.5 Mg Tablet) 2.5 mg PO DAILY [facility]; Protocol Last Admin: 09/06/23 08:35 Dose: 2.5 mg Documented By: GERALD Apixaban (Apixaban 5 Mg Tablet) 5 mg PO BID [facility] Last Admin: 09/06/23 08:35 Dose: 5 mg Documented By: GERALD Calcium Carbonate (Calcium Carbonate 750 Mg Tab.Chew) 750 mg PO Q4H PRN PRN Reason: Heartburn Clonazepam (Clonazepam 1 Mg Tablet) 1 mg PO DAILY [facility] Last Admin: 09/06/23 08:36 Dose: 1 mg Documented By: GERALD Clonazepam (Clonazepam 1 Mg Tablet) 1 mg PO DAILY@2200 [facility] Last Admin: 09/05/23 21:43 Dose: 1 mg Documented By: LEDY Docusate Sodium (Docusate Sodium 100 Mg Capsule) 100 mg PO BID [facility] Last Admin: 09/06/23 08:36 Dose: 100 mg Documented By: GERALD Fluconazole (Fluconazole 100 Mg Tablet) 100 mg PO DAILY [facility] Last Admin: 09/06/23 08:36 Dose: 100 mg Documented By: GERALD Fluticasone/Vilanterol (Fluticasone/Vilanterol 200/25 Blst.W.Dev) 1 puff INHALE RDAILY [facility] Last Admin: 09/06/23 07:55 Dose: Not Given Documented By: VALDO Non-Admin Reason: Patient Refused Furosemide (Furosemide 20 Mg Tablet) 20 mg PO DAILY [facility]; Protocol Last Admin: 09/06/23 08:36 Dose: 20 mg Documented By: GERALD Gabapentin (Gabapentin 300 Mg Capsule) 300 mg PO TID [facility] Last Admin: 09/06/23 08:35 Dose: 300 mg Documented By: GERALD Glucose (Glucose Gel 15 Gm Gel..Gram.) 15 gm PO Q15M PRN; Protocol PRN Reason: per Hypoglycemia Standing Ord. Hydromorphone HCl (Hydromorphone Hcl 0.5 Mg/0.5 Ml Syringe) 0.5 mg IVPUSH Q4H PRN; Protocol PRN Reason: Pain, Severe (Pain Scale 7-10) Last Admin: 09/01/23 08:55 Dose: 0.5 mg Documented By: RUPERTO Acetaminophen (Ofirmev) 1,000 mg in 100 mls @ 400 mls/hr IV Q6H [facility] Last Admin: 09/06/23 08:13 Dose: Not Given Documented By: GERALD Non-Admin Reason: Patient Refused Dextrose (D10) 250 mls @ 750 mls/hr IV Q15M PRN; Protocol PRN Reason: per Hypoglycemia Standing Ord. Insulin Human Lispro (Insulin Lispro 100 Unit/Ml 3 Ml Vial) 0 unit SUBCUT QIDACHS [facility]; Protocol Last Admin: 09/06/23 11:31 Dose: Not Given Documented By: GERALD Non-Admin Reason: No Insulin Coverage Levofloxacin (Levofloxacin 500 Mg Tablet) 500 mg PO Q24H [facility] Last Admin: 09/06/23 06:44 Dose: 500 mg Documented By: BLAYNE Lurasidone HCl (Lurasidone Hcl 40 Mg Tablet) 120 mg PO DAILY [facility] Last Admin: 09/06/23 08:35 Dose: 120 mg Documented By: GERALD Magnesium Hydroxide (Milk Of Magnesia 30 Ml Oral.Susp) 30 ml PO DAILY PRN PRN Reason: Constipation Last Admin: 09/03/23 11:12 Dose: 30 ml Documented By: MUNIRA Magnesium Oxide (Magnesium Oxide 400 Mg Tablet) 400 mg PO BIDPC [facility] Last Admin: 09/06/23 08:35 Dose: 400 mg Documented By: GERALD Melatonin (Melatonin 3 Mg Tablet) 6 mg PO BEDTIME PRN PRN Reason: Insomnia Melatonin (Melatonin 3 Mg Tablet) 18 mg PO BEDTIME [facility] Last Admin: 09/05/23 21:44 Dose: 18 mg Documented By: LEDY Metronidazole (Metronidazole 500 Mg Tablet) 500 mg PO Q12H [facility] Last Admin: 09/06/23 12:08 Dose: 500 mg Documented By: GERALD Non-Formulary Medication (Bupropion Hcl) 100 mg PO DAILY [facility] Omeprazole (Omeprazole 20 Mg Capsule.Dr) 20 mg PO DAILY [facility] Last Admin: 09/06/23 08:35 Dose: 20 mg Documented By: GERALD Ondansetron HCl (Ondansetron Hcl 4 Mg/2 Ml Vial) 4 mg IVPUSH QID PRN PRN Reason: Nausea Last Admin: 09/05/23 13:46 Dose: 4 mg Documented By: CAROL Oxycodone HCl (Oxycodone Hcl Immed Release 5 Mg Tablet) 10 mg PO Q6H PRN PRN Reason: Pain, Moderate(Pain Scale 4-6) Last Admin: 09/06/23 09:03 Dose: 10 mg Documented By: GERALD Polyethylene Glycol (Polyethylene Glycol 3350 17 Gm Powd.Pack) 17 gm PO BID [facility] Last Admin: 09/06/23 08:36 Dose: 17 gm Documented By: GERALD Pramipexole Dihydrochloride (Pramipexole Di-Hcl 0.25 Mg Tablet) 0.25 mg PO DAILY [facility] Last Admin: 09/06/23 08:36 Dose: 0.25 mg Documented By: GERALD Sodium Biphosphate/Sodium Phosphate (Sodium Phosphate,Mineral-Dibasic 133 Ml Enema) 133 ml [place] ONCE PRN PRN Reason: Constipation Sodium Chloride (0.9 % Sodium Chloride Flush 3 Ml Syringe) 3 ml IVFLUSH QSHIFT [facility] Last Admin: 09/06/23 08:36 Dose: 3 ml Documented By: GERALD Trazodone HCl (Trazodone Hcl 100 Mg Tablet) 300 mg PO BEDTIME [facility] Last Admin: 09/05/23 21:44 Dose: 300 mg Documented By: LEDY Vitamin D (Cholecalciferol (Vitamin D3) 25 Mcg Tablet) 50 mcg PO DAILY [facility] Last Admin: 09/06/23 08:36 Dose: 50 mcg Documented By: GERALD Vortioxetine (Vortioxetine Hydrobromide 20 Mg Tablet) 20 mg PO DAILY [facility] Last Admin: 09/06/23 08:35 Dose: 20 mg Documented By: GERALD Labs 08/30/23 00:02 09/03/23 05:50 Labs: Laboratory Results - last 24 hr 09/05/23 09/05/23 09/06/23 16:10 20:31 07:17 POC Glucose 101 96 80 09/06/23 11:22 POC Glucose 78 Assessment and Plan (1) Abdominal wall fluid collections: Status: Acute Assessment and Plan: 62-year-old female with history of moderate persistent asthma, hypertension, history of pulmonary embolism on Eliquis, [id number] type 2 diabetes, rubs/leg syndrome, bipolar disorder, peripheral neuropathy, lumbar spondylolisthesis, GERD, history of polysubstance abuse in remission admitted to general surgery for evaluation abdominal pain in a patient who is 5 days s/p wound exploration with abdominal wall debridement of granulation tissue and incision and drainage of the abdominal wall abscess in the left upper quadrant for foreign body reaction of the abdominal wall following history of perforated marginal ulcer s/p Ruben patch. Consult was placed to hospitalist service due to syncopal episode which patient reports occurred 2 days ago Syncope: workup tele seems fine, orthostatic negative, echo:The left ventricular systolic function is normal. The calculated ejection fraction is 59% by biplane method. No obvious valvular pathology seen on this study. Head Ct negative for acute intracranial abnormality. No focal neuro deficits possible polypharmacy contributing: multiple sedating medications including gabapentin 800 mg twice daily, Lyrica 200 mg twice daily, clonazepam 1 mg every morning and 2 mg in the evening along with lorazepam 1 mg twice daily. She is taking oxycodone 5mg QID. She is also taking 300 mg of trazodone at bedtime in addition to Latuda. hold lyrica,adjusted gabapentin to 300mg TID,Stop lorazepam. Continue clonazepam 1mg daily and adjusted evening dose to 1mg. pain management per general surgery. Change oxycodone to prn, not scheduled hand pain left sided : xray shows Mild to moderate degenerative changes of the left hand. No fracture. pain management and encouarge rom. hypomagnesemia : repleted continue po magnesium abd wall collections : vanco trough 15-16.2 previous abd cultures (08/22)-klebsella-senstive to levaquin abd cultures (08/29) -strep anginosus pansenstive d/w surgery and ID-on levaquin/flagyl, vanco stopped . id eval hypertension-blood pressure is soft. starting small dose amlodipine, Lasix, metoprolol. Resume as blood pressure improves as appropriate type 2 diabetes-diet controlled -change to diabetic diet -POC glucose, Admelog sliding scale bipolar disorder continue Latuda, trazodone. her home psych meds were adjusted as above will add psych eval for psych medication adjustments. hx of pulm embolism : continue apixiban. GERD-PPI dispo:as per primary team Quality Stroke Does the patient have a stroke diagnosis?: No VTE Prior VTE?: No VTE Risk Level:: Surgical - moderate VTE Device Contraindication: N/A - Device Ordered VTE Drug Contraindication: N/A - Med Ordered
--- NOTE | 2023-09-06 14:29 | PM.PNGS ---
Subjective Subjective Date of Service: 09/06/23 Interval history: Patient with no new complaints. Reports nausea and vomiting over the weekend but denies any nausea currently. Has some abdominal pain still with the packing. Physical Exam Vital Signs: Vital Signs: Last Vital Signs Temp 97.1 F 09/06/23 12:00 Pulse 69 09/06/23 12:00 Resp 18 09/06/23 12:00 BP 144/72 H 09/06/23 12:00 Pulse Ox 95 09/06/23 12:00 O2 Del Method Room Air 09/06/23 12:00 BMI result Body Mass Index 31.3 Const: General: no acute distress Nutritional Appearance: well nourished Orientation/consciousness: patient oriented x3 Limitations: no limitations Resp: Effort & Inspection: normal respiratory effort, no audible wheezes, no cough and no respiratory distress GI: Other: Less erythema noted on the abdominal wall. Packing was changed and wound repacked. Depth of the wound is now a proximally 3 cm and appears to have narrowed significantly. Dry sterile dressings applied. Skin: Other: Warm, dry, no rash Neuro: General: patient oriented x3 Extrem: Other: No edema Objective Data Active Medications Acetaminophen/Butalbital/Caffeine (Butalb/Acetamin/Caff 50/325/40 Tablet) 1 tab PO Q6H PRN PRN Reason: Migraine Headache Albuterol Sulfate (Albuterol Sulfate 90 Mcg 8 Gm Inhaler) 2 puff INHALE Q6H PRN PRN Reason: Shortness Of Breath Amlodipine Besylate (Amlodipine Besylate 2.5 Mg Tablet) 2.5 mg PO DAILY [facility]; Protocol Last Admin: 09/06/23 08:35 Dose: 2.5 mg Documented By: GERALD Apixaban (Apixaban 5 Mg Tablet) 5 mg PO BID [facility] Last Admin: 09/06/23 08:35 Dose: 5 mg Documented By: GERALD Calcium Carbonate (Calcium Carbonate 750 Mg Tab.Chew) 750 mg PO Q4H PRN PRN Reason: Heartburn Clonazepam (Clonazepam 1 Mg Tablet) 1 mg PO DAILY [facility] Last Admin: 09/06/23 08:36 Dose: 1 mg Documented By: GERALD Clonazepam (Clonazepam 1 Mg Tablet) 1 mg PO DAILY@2200 [facility] Last Admin: 09/05/23 21:43 Dose: 1 mg Documented By: LEDY Docusate Sodium (Docusate Sodium 100 Mg Capsule) 100 mg PO BID [facility] Last Admin: 09/06/23 08:36 Dose: 100 mg Documented By: GERALD Fluconazole (Fluconazole 100 Mg Tablet) 100 mg PO DAILY [facility] Last Admin: 09/06/23 08:36 Dose: 100 mg Documented By: GERALD Fluticasone/Vilanterol (Fluticasone/Vilanterol 200/25 Blst.W.Dev) 1 puff INHALE RDAILY [facility] Last Admin: 09/06/23 07:55 Dose: Not Given Documented By: VALDO Non-Admin Reason: Patient Refused Furosemide (Furosemide 20 Mg Tablet) 20 mg PO DAILY [facility]; Protocol Last Admin: 09/06/23 08:36 Dose: 20 mg Documented By: GERALD Gabapentin (Gabapentin 300 Mg Capsule) 300 mg PO TID [facility] Last Admin: 09/06/23 08:35 Dose: 300 mg Documented By: GERALD Glucose (Glucose Gel 15 Gm Gel..Gram.) 15 gm PO Q15M PRN; Protocol PRN Reason: per Hypoglycemia Standing Ord. Hydromorphone HCl (Hydromorphone Hcl 0.5 Mg/0.5 Ml Syringe) 0.5 mg IVPUSH Q4H PRN; Protocol PRN Reason: Pain, Severe (Pain Scale 7-10) Last Admin: 09/01/23 08:55 Dose: 0.5 mg Documented By: RUPERTO Acetaminophen (Ofirmev) 1,000 mg in 100 mls @ 400 mls/hr IV Q6H [facility] Last Admin: 09/06/23 08:13 Dose: Not Given Documented By: GERALD Non-Admin Reason: Patient Refused Dextrose (D10) 250 mls @ 750 mls/hr IV Q15M PRN; Protocol PRN Reason: per Hypoglycemia Standing Ord. Insulin Human Lispro (Insulin Lispro 100 Unit/Ml 3 Ml Vial) 0 unit SUBCUT QIDACHS [facility]; Protocol Last Admin: 09/06/23 11:31 Dose: Not Given Documented By: GERALD Non-Admin Reason: No Insulin Coverage Levofloxacin (Levofloxacin 500 Mg Tablet) 500 mg PO Q24H [facility] Last Admin: 09/06/23 06:44 Dose: 500 mg Documented By: BLAYNE Lurasidone HCl (Lurasidone Hcl 40 Mg Tablet) 120 mg PO DAILY [facility] Last Admin: 09/06/23 08:35 Dose: 120 mg Documented By: GERALD Magnesium Hydroxide (Milk Of Magnesia 30 Ml Oral.Susp) 30 ml PO DAILY PRN PRN Reason: Constipation Last Admin: 09/03/23 11:12 Dose: 30 ml Documented By: MUNIRA Magnesium Oxide (Magnesium Oxide 400 Mg Tablet) 400 mg PO BIDPC [facility] Last Admin: 09/06/23 08:35 Dose: 400 mg Documented By: GERALD Melatonin (Melatonin 3 Mg Tablet) 6 mg PO BEDTIME PRN PRN Reason: Insomnia Melatonin (Melatonin 3 Mg Tablet) 18 mg PO BEDTIME [facility] Last Admin: 09/05/23 21:44 Dose: 18 mg Documented By: LEDY Metronidazole (Metronidazole 500 Mg Tablet) 500 mg PO Q12H [facility] Last Admin: 09/06/23 12:08 Dose: 500 mg Documented By: GERALD Non-Formulary Medication (Bupropion Hcl) 100 mg PO DAILY [facility] Omeprazole (Omeprazole 20 Mg Capsule.Dr) 20 mg PO DAILY [facility] Last Admin: 09/06/23 08:35 Dose: 20 mg Documented By: GERALD Ondansetron HCl (Ondansetron Hcl 4 Mg/2 Ml Vial) 4 mg IVPUSH QID PRN PRN Reason: Nausea Last Admin: 09/05/23 13:46 Dose: 4 mg Documented By: CAROL Oxycodone HCl (Oxycodone Hcl Immed Release 5 Mg Tablet) 10 mg PO Q6H PRN PRN Reason: Pain, Moderate(Pain Scale 4-6) Last Admin: 09/06/23 09:03 Dose: 10 mg Documented By: GERALD Polyethylene Glycol (Polyethylene Glycol 3350 17 Gm Powd.Pack) 17 gm PO BID [facility] Last Admin: 09/06/23 08:36 Dose: 17 gm Documented By: GERALD Pramipexole Dihydrochloride (Pramipexole Di-Hcl 0.25 Mg Tablet) 0.25 mg PO DAILY [facility] Last Admin: 09/06/23 08:36 Dose: 0.25 mg Documented By: GERALD Sodium Biphosphate/Sodium Phosphate (Sodium Phosphate,[place]-Dibasic 133 Ml Enema) 133 ml [place] ONCE PRN PRN Reason: Constipation Sodium Chloride (0.9 % Sodium Chloride Flush 3 Ml Syringe) 3 ml IVFLUSH QSHIFT [facility] Last Admin: 09/06/23 08:36 Dose: 3 ml Documented By: GERALD Trazodone HCl (Trazodone Hcl 100 Mg Tablet) 300 mg PO BEDTIME [facility] Last Admin: 09/05/23 21:44 Dose: 300 mg Documented By: LEDY Vitamin D (Cholecalciferol (Vitamin D3) 25 Mcg Tablet) 50 mcg PO DAILY [facility] Last Admin: 09/06/23 08:36 Dose: 50 mcg Documented By: GERALD Vortioxetine (Vortioxetine Hydrobromide 20 Mg Tablet) 20 mg PO DAILY [facility] Last Admin: 09/06/23 08:35 Dose: 20 mg Documented By: GERALD Labs 08/30/23 00:02 09/03/23 05:50 Labs: Laboratory Results - last 24 hr 09/05/23 09/05/23 09/06/23 16:10 20:31 07:17 POC Glucose 101 96 80 09/06/23 11:22 POC Glucose 78 Procedures Date of Service Date of Service: 09/06/23 Progress Note: A&P Assessment and plan (1) Abdominal wall fluid collections: Status: Acute Plan Abdominal wound continues to drain. Positive blood culture in 1 bottle noted. Patient remains on Levaquin. Main issue is nausea and vomiting over the weekend. Patient reports no bowel movement for several days. Was given MiraLax and milk of magnesia yesterday. We will continue to monitor. Wounds repacked today and overall seems smaller. Continue antibiotics and local wound care. Time Spent With Patient Time: Total time managing care of this patient today ____ minutes. Quality Stroke Does the patient have a stroke diagnosis?: No VTE Prior VTE?: No VTE Risk Level:: Surgical - moderate VTE Device Contraindication: N/A - Device Ordered VTE Drug Contraindication: N/A - Med Ordered
--- NOTE | 2023-09-06 16:05 | W.PM.IDCN ---
History of Present Illness Data of Consult Service Date: 09/06/23 Requesting physician: Danny Hernandez Primary Care Provider: Kat Nevarez MD [facility] Reason for consult: abdominal abscess She presents with abdominal discomfort 08/17 . She has abdominal abscess and surgery five days ago. Abscess still 6 cm She has strep anginosis on 08/29 and strep viridans and bacteroides on 08/22. She was placed on Flagyl and Levaquin. Review of Systems Review of Systems: Yes all other systems are reviewed and are negative [facility] Past Medical History Medical History Physical deconditioning Arthritis GERD (gastroesophageal reflux disease) Depression Polysubstance abuse Osteoarthritis Sleep apnea Elevated cholesterol Bipolar 1 disorder RLS (restless legs syndrome) Asthma HTN (hypertension) Pulmonary embolism Peripheral neuropathy Diabetes Spondylolisthesis, lumbar region Surgical History Surgical History History of spinal surgery (05/31/23) History of Pamela-en-Y gastric bypass (~03/2023) Hx of exploratory laparotomy (06/03/23) H/O colonoscopy History of total right knee replacement Hx of tonsillectomy Hx of tubal ligation Hx of hysterectomy History of sleeve gastrectomy Social History Social History Household Members: Spouse Housing: Apartment Are you a primary managed care nurse to a significant other at home: No Do you presently have visiting nurse or other home services: Yes Comment: aware of trip hazard Patient Tobacco Use Status: Never used Tobacco Smoked in Last 30 Days: No Patient Interested in Nicotine Replacement: No Patient Given Instructions on How to Stop Smoking: No Second Hand Smoke Exposure: No Use of substances other than those prescribed or required for medical reasons: No Currently Displaying Signs/Symptoms of Drug Intoxication Withdrawal: No Any prior treatment program specific to substance use: No Have you been hit, kicked, punched, or otherwise hurt by someone within the past year? If so, by whom?: No Do you feel safe in your current relationship?: Yes Is there a partner from a previous relationship who is making you feel unsafe now?: No Are you made to feel afraid or neglected: No Advance Directives: No Advance Directives Information Provided: Yes Advance Directives on File: No Do you have a plan to hurt others: No Plan Recently lost weight without trying: No Eating poorly because of decreased appetite: No Patient : No : No Poor oral hygiene: No service: No Meds Allergies Allergy/AdvReac Type Severity Reaction Status Date / Time cephalexin [From Keflex] Allergy Intermediate Swelling Verified 08/29/23 23:35 doxycycline Allergy Intermediate Hives Verified 08/29/23 23:35 glipizide Allergy Intermediate Rash Verified 08/29/23 23:35 metformin Allergy Intermediate Itching Verified 08/29/23 23:35 morphine Allergy Intermediate Nausea and Verified 08/29/23 23:35 Vomiting/ineffective ropinirole [From Requip] Allergy Intermediate Nausea and Verified 08/29/23 23:35 Vomiting CLARITZA Inhibitors AdvReac Intermediate Cough Verified 08/29/23 23:35 Active Medications: Current Medications Acetaminophen/Butalbital/Caffeine (Butalb/Acetamin/Caff 50/325/40 Tablet) 1 tab PO Q6H PRN PRN Reason: Migraine Headache Albuterol Sulfate (Albuterol Sulfate 90 Mcg 8 Gm Inhaler) 2 puff INHALE Q6H PRN PRN Reason: Shortness Of Breath Amlodipine Besylate (Amlodipine Besylate 2.5 Mg Tablet) 2.5 mg PO DAILY [facility]; Protocol Last Admin: 09/06/23 08:35 Dose: 2.5 mg Apixaban (Apixaban 5 Mg Tablet) 5 mg PO BID [facility] Last Admin: 09/06/23 08:35 Dose: 5 mg Calcium Carbonate (Calcium Carbonate 750 Mg Tab.Chew) 750 mg PO Q4H PRN PRN Reason: Heartburn Clonazepam (Clonazepam 1 Mg Tablet) 1 mg PO DAILY [facility] Last Admin: 09/06/23 08:36 Dose: 1 mg Clonazepam (Clonazepam 1 Mg Tablet) 1 mg PO DAILY@2200 [facility] Last Admin: 09/05/23 21:43 Dose: 1 mg Docusate Sodium (Docusate Sodium 100 Mg Capsule) 100 mg PO BID [facility] Last Admin: 09/06/23 08:36 Dose: 100 mg Fluconazole (Fluconazole 100 Mg Tablet) 100 mg PO DAILY [facility] Last Admin: 09/06/23 08:36 Dose: 100 mg Fluticasone/Vilanterol (Fluticasone/Vilanterol 200/25 Blst.W.Dev) 1 puff INHALE RDAILY [facility] Last Admin: 09/06/23 07:55 Dose: Not Given Furosemide (Furosemide 20 Mg Tablet) 20 mg PO DAILY [facility]; Protocol Last Admin: 09/06/23 08:36 Dose: 20 mg Gabapentin (Gabapentin 300 Mg Capsule) 300 mg PO TID [facility] Last Admin: 09/06/23 14:45 Dose: 300 mg Glucose (Glucose Gel 15 Gm Gel..Gram.) 15 gm PO Q15M PRN; Protocol PRN Reason: per Hypoglycemia Standing Ord. Hydromorphone HCl (Hydromorphone Hcl 0.5 Mg/0.5 Ml Syringe) 0.5 mg IVPUSH Q4H PRN; Protocol PRN Reason: Pain, Severe (Pain Scale 7-10) Last Admin: 09/01/23 08:55 Dose: 0.5 mg Acetaminophen (Ofirmev) 1,000 mg in 100 mls @ 400 mls/hr IV Q6H [facility] Last Admin: 09/06/23 16:05 Dose: Not Given Dextrose (D10) 250 mls @ 750 mls/hr IV Q15M PRN; Protocol PRN Reason: per Hypoglycemia Standing Ord. Insulin Human Lispro (Insulin Lispro 100 Unit/Ml 3 Ml Vial) 0 unit SUBCUT QIDACHS [facility]; Protocol Last Admin: 09/06/23 11:31 Dose: Not Given Levofloxacin (Levofloxacin 500 Mg Tablet) 500 mg PO Q24H [facility] Last Admin: 09/06/23 06:44 Dose: 500 mg Lurasidone HCl (Lurasidone Hcl 40 Mg Tablet) 120 mg PO DAILY [facility] Last Admin: 09/06/23 08:35 Dose: 120 mg Magnesium Hydroxide (Milk Of Magnesia 30 Ml Oral.Susp) 30 ml PO DAILY PRN PRN Reason: Constipation Last Admin: 09/03/23 11:12 Dose: 30 ml Magnesium Oxide (Magnesium Oxide 400 Mg Tablet) 400 mg PO BIDPC [facility] Last Admin: 09/06/23 08:35 Dose: 400 mg Melatonin (Melatonin 3 Mg Tablet) 6 mg PO BEDTIME PRN PRN Reason: Insomnia Melatonin (Melatonin 3 Mg Tablet) 18 mg PO BEDTIME [facility] Last Admin: 09/05/23 21:44 Dose: 18 mg Metronidazole (Metronidazole 500 Mg Tablet) 500 mg PO Q12H [facility] Last Admin: 09/06/23 12:08 Dose: 500 mg Non-Formulary Medication (Bupropion Hcl) 100 mg PO DAILY [facility] Omeprazole (Omeprazole 20 Mg Capsule.Dr) 20 mg PO DAILY [facility] Last Admin: 09/06/23 08:35 Dose: 20 mg Ondansetron HCl (Ondansetron Hcl 4 Mg/2 Ml Vial) 4 mg IVPUSH QID PRN PRN Reason: Nausea Last Admin: 09/05/23 13:46 Dose: 4 mg Oxycodone HCl (Oxycodone Hcl Immed Release 5 Mg Tablet) 10 mg PO Q6H PRN PRN Reason: Pain, Moderate(Pain Scale 4-6) Last Admin: 09/06/23 14:45 Dose: 10 mg Polyethylene Glycol (Polyethylene Glycol 3350 17 Gm Powd.Pack) 17 gm PO BID [facility] Last Admin: 09/06/23 08:36 Dose: 17 gm Pramipexole Dihydrochloride (Pramipexole Di-Hcl 0.25 Mg Tablet) 0.25 mg PO DAILY [facility] Last Admin: 09/06/23 08:36 Dose: 0.25 mg Sodium Biphosphate/Sodium Phosphate (Sodium Phosphate,[place]-Dibasic 133 Ml Enema) 133 ml [place] ONCE PRN PRN Reason: Constipation Sodium Chloride (0.9 % Sodium Chloride Flush 3 Ml Syringe) 3 ml IVFLUSH QSHIFT [facility] Last Admin: 09/06/23 14:47 Dose: 3 ml Trazodone HCl (Trazodone Hcl 100 Mg Tablet) 300 mg PO BEDTIME [facility] Last Admin: 09/05/23 21:44 Dose: 300 mg Vitamin D (Cholecalciferol (Vitamin D3) 25 Mcg Tablet) 50 mcg PO DAILY [facility] Last Admin: 09/06/23 08:36 Dose: 50 mcg Vortioxetine (Vortioxetine Hydrobromide 20 Mg Tablet) 20 mg PO DAILY [facility] Last Admin: 09/06/23 08:35 Dose: 20 mg Home Medications ?Medication ?Instructions ?Recorded ?Confirmed ?Last Taken ?Type albuterol sulfate 90 mcg/actuation 2 puff inhalation Q6H PRN 04/28/23 08/30/23 Unknown History aerosol inhaler (Ventolin HFA) Shortness Of Breath budesonide-formoterol HFA 160 2 puff inhalation BID 03/08/30/23 08/29/23 History mcg-4.5 mcg/actuation aerosol inhaler (Symbicort) bupropion HCl 100 mg tablet,12 hr 100 mg PO QAM 04/28/23 08/30/23 08/29/23 History sustained-release nplwnkmrbi-wocadgwuvecni-juxtnmop 1 tab PO Q6H PRN pain 04/28/23 08/30/23 Unknown History 50 mg-325 mg-40 mg tablet clonazepam 1 mg tablet 1 mg PO DAILY 04/28/23 08/30/23 08/29/23 History furosemide 40 mg tablet 20 mg PO DAILY 04/28/23 08/30/23 08/29/23 History gabapentin 800 mg tablet 800 mg PO BID 04/28/23 08/30/23 08/29/23 History hydroxyzine HCl 10 mg tablet 10 mg PO DAILY PRN Anxiety 04/28/23 08/30/23 08/23/23 History lorazepam 1 mg tablet 1 mg PO BID 04/28/23 08/30/23 08/29/23 History metoprolol tartrate 25 mg tablet 25 mg PO DAILY 04/28/23 08/30/23 08/29/23 History pramipexole 0.25 mg tablet 0.25 mg PO DAILY 04/28/23 08/30/23 08/29/23 History trazodone 100 mg tablet 300 mg PO BEDTIME 04/28/23 08/30/23 08/29/23 History vortioxetine 20 mg tablet 20 mg PO DAILY 04/28/23 08/30/23 08/29/23 History (Trintellix) apixaban 5 mg tablet (Eliquis) 5 mg PO BID 07/22/23 08/30/23 08/29/23 History atorvastatin 40 mg tablet 40 mg PO DAILY 07/22/23 08/30/23 08/29/23 History amlodipine 5 mg tablet 5 mg PO DAILY 08/30/23 08/30/23 08/29/23 History cholecalciferol (vitamin D3) 50 50 mcg PO DAILY 08/30/23 08/30/23 08/29/23 History mcg (2,000 unit) capsule clonazepam 1 mg tablet 2 mg PO DAILY@1800 08/30/23 08/30/23 08/29/23 History lurasidone 120 mg tablet 120 mg PO DAILY 08/30/23 08/30/23 08/29/23 History melatonin 10 mg tablet 20 mg PO BEDTIME 08/30/23 08/30/23 08/29/23 History oxycodone-acetaminophen 5 mg-325 1 tab PO QID 08/30/23 08/30/23 08/29/23 History mg tablet pregabalin 200 mg capsule 200 mg PO BID 08/30/23 08/30/23 08/29/23 History Physical Exam Vital Signs: Vital Signs: Last Vital Signs Temp 97.9 F 09/06/23 15:42 Pulse 72 09/06/23 15:42 Resp 20 09/06/23 15:42 BP 157/93 H 09/06/23 15:42 Pulse Ox 96 09/06/23 15:42 O2 Del Method Room Air 09/06/23 15:42 BMI result Body Mass Index 31.3 Const: General: cooperative HEENT: Head: Yes normal to inspection Face and sinus: Yes normal facial exam Mouth: Normal oral and palatal mucosa present Teeth and gingiva: dentition normal Eyes: General: appearance normal, both eyes and all related structures Pupils: Equal, round and reactive pupils present Resp: Effort & Inspection: normal respiratory effort Cardio: Rate: regular rate Rhythm: regular rhythm GI: Palpation (GI): Soft to palpation and nontender : General: Yes no CVA tenderness Back/Spine/Pelvis: Back: no CVA tenderness Skin: General skin exam: no rashes or lesions noted Neuro: General: moves all extremities Cranial nerves: Yes Equal, round and reactive pupils present Extrem: General: Yes normal to inspection Psych: Appearance: grossly normal Results Labs 08/30/23 00:02 09/03/23 05:50 Microbiology Microbiology Results: Microbiology 08/30/23 00:21 Blood - Venous Blood Culture - Final No growth after 5 days. 08/30/23 00:21 Blood - Venous Blood Culture - Final No growth after 5 days. 08/30/23 00:23 Abdomen - Abdominal Gram Stain - Final 08/30/23 00:23 Abdomen - Abdominal Routine Culture - Final Streptococcus anginosus 08/30/23 Unknown Urine clean catch - Clean Catch Midstream Urine Culture - Final No growth. Assessment and Plan (1) Polypharmacy: Status: Acute (2) Abdominal wall fluid collections: Status: Acute Plan There are multiple organisms She has some allergies She has been on flagyl and levaquin po and diflucan Likely if 6 cm abscess may need redrain if continues to grow. Would continue current antibiotics 14 days possibly Can stop Diflucan
[2023-09-06 16:21] LABS: Glucose, Whole Blood 83 mg/dL (60-115)
[2023-09-06] MEDS: HYDROmorphone HCl 0.5 MG/0.5 ML SYRINGE IVPUSH (19:05)
[2023-09-06] MEDS: Milk of Magnesia 30 ML ORAL.SUSP PO (19:10)
[2023-09-06 20:34] LABS: Glucose, Whole Blood 109 mg/dL (60-115)
[2023-09-06] MEDS: traZODone HCL 100 MG TABLET 300 MG PO (21:28)
[2023-09-06] MEDS: Melatonin 3 MG TABLET 18 MG PO (21:28)
[2023-09-07] VITALS (7 sets, daily range): BP systolic 113–136; BP diastolic 60–83; PULSE 62–72; RESP 16–20; TEMP 36.2–36.9; O2SAT 90–95
[2023-09-07] MEDS: metroNIDAZOLE 500 MG TABLET PO ×3 (00:58→23:15)
[2023-09-07] MEDS: 0.9 % Sodium Chloride Flush 3 ML SYRINGE IVFLUSH ×4 (00:58→21:33)
[2023-09-07] MEDS: HYDROmorphone HCl 0.5 MG/0.5 ML SYRINGE IVPUSH ×2 (00:59→13:39)
[2023-09-07] MEDS: oxyCODONE HCl Immed Release 5 MG TABLET 10 MG PO ×3 (04:14→21:36)
[2023-09-07] MEDS: levoFLOXacin 500 MG TABLET PO (06:19)
[2023-09-07 07:26] LABS: Glucose, Whole Blood 90 mg/dL (60-115)
--- NOTE | 2023-09-07 07:45 | P.PNGS_ITS ---
Subjective Subjective Date of Service: 09/07/23 Interval history: Still reports constipation. Abdominal pain is somewhat improved today. Physical Exam 2 Vital Signs: Vital Signs: Last Vital Signs Temp 97.5 F 09/07/23 07:18 Pulse 69 09/07/23 07:18 Resp 16 09/07/23 07:18 BP 136/66 09/07/23 07:18 Pulse Ox 90 L 09/07/23 07:18 O2 Del Method Room Air 09/07/23 07:18 BMI result Body Mass Index 31.3 Const: General: no acute distress Nutritional Appearance: well nourished Orientation/consciousness: patient oriented x3 Resp: Effort & Inspection: normal respiratory effort GI: Other: Dressings changed abdominal wound. Depth of wound now 2.5 cm compared to 3 cm yesterday. Wounds repacked with quarter-inch Nu Gauze. Clean sterile dressings applied. Neuro: General: patient oriented x3 Objective Data Active Medications Acetaminophen/Butalbital/Caffeine (Butalb/Acetamin/Caff 50/325/40 Tablet) 1 tab PO Q6H PRN PRN Reason: Migraine Headache Albuterol Sulfate (Albuterol Sulfate 90 Mcg 8 Gm Inhaler) 2 puff INHALE Q6H PRN PRN Reason: Shortness Of Breath Amlodipine Besylate (Amlodipine Besylate 2.5 Mg Tablet) 2.5 mg PO DAILY [facility]; Protocol Last Admin: 09/06/23 08:35 Dose: 2.5 mg Documented By: GERALD Apixaban (Apixaban 5 Mg Tablet) 5 mg PO BID [facility] Last Admin: 09/06/23 21:28 Dose: 5 mg Documented By: KATHIE Calcium Carbonate (Calcium Carbonate 750 Mg Tab.Chew) 750 mg PO Q4H PRN PRN Reason: Heartburn Clonazepam (Clonazepam 1 Mg Tablet) 1 mg PO DAILY [facility] Last Admin: 09/06/23 08:36 Dose: 1 mg Documented By: GERALD Clonazepam (Clonazepam 1 Mg Tablet) 1 mg PO DAILY@2200 [facility] Last Admin: 09/06/23 21:27 Dose: 1 mg Documented By: KATHIE Docusate Sodium (Docusate Sodium 100 Mg Capsule) 100 mg PO BID [facility] Last Admin: 09/06/23 21:28 Dose: 100 mg Documented By: KATHIE Fluconazole (Fluconazole 100 Mg Tablet) 100 mg PO DAILY [facility] Last Admin: 09/06/23 08:36 Dose: 100 mg Documented By: GERALD Fluticasone/Vilanterol (Fluticasone/Vilanterol 200/25 Blst.W.Dev) 1 puff INHALE RDAILY [facility] Last Admin: 09/06/23 07:55 Dose: Not Given Documented By: VALDO Non-Admin Reason: Patient Refused Furosemide (Furosemide 20 Mg Tablet) 20 mg PO DAILY [facility]; Protocol Last Admin: 09/06/23 08:36 Dose: 20 mg Documented By: GERALD Gabapentin (Gabapentin 300 Mg Capsule) 300 mg PO TID [facility] Last Admin: 09/06/23 21:27 Dose: 300 mg Documented By: KATHIE Glucose (Glucose Gel 15 Gm Gel..Gram.) 15 gm PO Q15M PRN; Protocol PRN Reason: per Hypoglycemia Standing Ord. Hydromorphone HCl (Hydromorphone Hcl 0.5 Mg/0.5 Ml Syringe) 0.5 mg IVPUSH Q4H PRN; Protocol PRN Reason: Pain, Severe (Pain Scale 7-10) Last Admin: 09/07/23 00:59 Dose: 0.5 mg Documented By: NATHANAEL Dextrose (D10) 250 mls @ 750 mls/hr IV Q15M PRN; Protocol PRN Reason: per Hypoglycemia Standing Ord. Insulin Human Lispro (Insulin Lispro 100 Unit/Ml 3 Ml Vial) 0 unit SUBCUT QIDACHS [facility]; Protocol Last Admin: 09/07/23 07:28 Dose: Not Given Documented By: RUPERTO Non-Admin Reason: No Insulin Coverage Levofloxacin (Levofloxacin 500 Mg Tablet) 500 mg PO Q24H [facility] Last Admin: 09/07/23 06:19 Dose: 500 mg Documented By: NATHANAEL Lurasidone HCl (Lurasidone Hcl 40 Mg Tablet) 120 mg PO DAILY [facility] Last Admin: 09/06/23 08:35 Dose: 120 mg Documented By: GERALD Magnesium Hydroxide (Milk Of Magnesia 30 Ml Oral.Susp) 30 ml PO DAILY PRN PRN Reason: Constipation Last Admin: 09/06/23 19:10 Dose: 30 ml Documented By: KATHIE Magnesium Oxide (Magnesium Oxide 400 Mg Tablet) 400 mg PO BIDPC [facility] Last Admin: 09/06/23 16:58 Dose: 400 mg Documented By: AMA Melatonin (Melatonin 3 Mg Tablet) 6 mg PO BEDTIME PRN PRN Reason: Insomnia Melatonin (Melatonin 3 Mg Tablet) 18 mg PO BEDTIME [facility] Last Admin: 09/06/23 21:28 Dose: 18 mg Documented By: KATHIE Metronidazole (Metronidazole 500 Mg Tablet) 500 mg PO Q12H [facility] Last Admin: 09/07/23 00:58 Dose: 500 mg Documented By: NATHANAEL Non-Formulary Medication (Bupropion Hcl) 100 mg PO DAILY [facility] Omeprazole (Omeprazole 20 Mg Capsule.Dr) 20 mg PO DAILY [facility] Last Admin: 09/06/23 08:35 Dose: 20 mg Documented By: GERALD Ondansetron HCl (Ondansetron Hcl 4 Mg/2 Ml Vial) 4 mg IVPUSH QID PRN PRN Reason: Nausea Last Admin: 09/05/23 13:46 Dose: 4 mg Documented By: CAROL Oxycodone HCl (Oxycodone Hcl Immed Release 5 Mg Tablet) 10 mg PO Q6H PRN PRN Reason: Pain, Moderate(Pain Scale 4-6) Last Admin: 09/07/23 04:14 Dose: 10 mg Documented By: NATHANAEL Polyethylene Glycol (Polyethylene Glycol 3350 17 Gm Powd.Pack) 17 gm PO BID [facility] Last Admin: 09/06/23 21:34 Dose: Not Given Documented By: KATHIE Non-Admin Reason: Patient Refused Pramipexole Dihydrochloride (Pramipexole Di-Hcl 0.25 Mg Tablet) 0.25 mg PO DAILY [facility] Last Admin: 09/06/23 08:36 Dose: 0.25 mg Documented By: GERALD Sodium Biphosphate/Sodium Phosphate (Sodium Phosphate,[place]-Dibasic 133 Ml Enema) 133 ml [place] ONCE PRN PRN Reason: Constipation Sodium Chloride (0.9 % Sodium Chloride Flush 3 Ml Syringe) 3 ml IVFLUSH QSHIFT [facility] Last Admin: 09/07/23 07:26 Dose: 3 ml Documented By: RUPERTO Trazodone HCl (Trazodone Hcl 100 Mg Tablet) 300 mg PO BEDTIME [facility] Last Admin: 09/06/23 21:28 Dose: 300 mg Documented By: KATIHE Vitamin D (Cholecalciferol (Vitamin D3) 25 Mcg Tablet) 50 mcg PO DAILY [facility] Last Admin: 09/06/23 08:36 Dose: 50 mcg Documented By: GERALD Vortioxetine (Vortioxetine Hydrobromide 20 Mg Tablet) 20 mg PO DAILY [facility] Last Admin: 09/06/23 08:35 Dose: 20 mg Documented By: GERALD Labs 08/30/23 00:02 09/03/23 05:50 Labs: Laboratory Results - last 24 hr 09/06/23 09/06/23 09/06/23 11:22 16:17 20:25 POC Glucose 78 83 109 09/07/23 07:23 POC Glucose 90 Procedures Date of Service Date of Service: 09/07/23 Progress Note: A&P Assessment and plan (1) Abdominal wall fluid collections: Status: Acute Plan Persistent muco purulence discharge from abdominal wound, no feculent material identified. Overall the cavity is closing appropriately. We will continue with local wound care and packing daily. Recheck labs in a.m.. Appreciate hospitalist's input. Time Spent With Patient Time: Total time managing care of this patient today ____ minutes. Quality Stroke Does the patient have a stroke diagnosis?: No VTE Prior VTE?: No VTE Risk Level:: Surgical - moderate VTE Device Contraindication: N/A - Device Ordered VTE Drug Contraindication: N/A - Med Ordered
[2023-09-07] MEDS: Apixaban 5 MG TABLET PO ×2 (07:55→21:29)
[2023-09-07] MEDS: Furosemide 20 MG TABLET PO (07:55)
[2023-09-07] MEDS: Fluticasone/Vilanterol 200/25 BLST.W.DEV 1 PUFF INHALE (07:55)
[2023-09-07] MEDS: Magnesium Oxide 400 MG TABLET PO ×2 (07:55→16:44)
[2023-09-07] MEDS: amLODIPine Besylate 2.5 MG TABLET PO (07:55)
[2023-09-07] MEDS: polyethylene glycoL 3350 17 GM POWD.PACK PO (07:55)
[2023-09-07] MEDS: Fluconazole 100 MG TABLET PO (07:56)
[2023-09-07] MEDS: Omeprazole 20 MG CAPSULE.DR PO (07:56)
[2023-09-07] MEDS: Cholecalciferol (Vitamin D3) 25 MCG TABLET 50 MCG PO (07:56)
[2023-09-07] MEDS: Lurasidone HCl 40 MG TABLET 120 MG PO (07:56)
[2023-09-07] MEDS: Pramipexole Di-HCL 0.25 MG TABLET PO (07:56)
[2023-09-07] MEDS: Gabapentin 300 MG CAPSULE PO ×3 (07:56→21:29)
[2023-09-07] MEDS: Docusate Sodium 100 MG CAPSULE PO ×2 (07:56→21:29)
[2023-09-07] MEDS: Vortioxetine Hydrobromide 20 MG TABLET PO (07:56)
[2023-09-07] MEDS: clonazePAM 1 MG TABLET PO ×2 (07:56→21:30)
[2023-09-07] MEDS: Sodium Phosphate,Mono-Dibasic 133 ML ENEMA PR (09:01)
[2023-09-07 11:38] LABS: Glucose, Whole Blood 82 mg/dL (60-115)
--- NOTE | 2023-09-07 13:21 | P.PNIM_ITS ---
Subjective Subjective Date of Service: 09/08/23 Interval History: seen in f/u for med consult, overall improving no new issues Physical Exam 2 Vital Signs: Vital Signs: Last Vital Signs Temp 97.2 F 09/07/23 11:38 Pulse 63 09/07/23 11:38 Resp 18 09/07/23 11:38 BP 133/64 09/07/23 11:38 Pulse Ox 95 09/07/23 11:38 O2 Del Method Room Air 09/07/23 11:38 BMI result Body Mass Index 31.3 Objective Data Active Medications Acetaminophen/Butalbital/Caffeine (Butalb/Acetamin/Caff 50/325/40 Tablet) 1 tab PO Q6H PRN PRN Reason: Migraine Headache Albuterol Sulfate (Albuterol Sulfate 90 Mcg 8 Gm Inhaler) 2 puff INHALE Q6H PRN PRN Reason: Shortness Of Breath Amlodipine Besylate (Amlodipine Besylate 2.5 Mg Tablet) 2.5 mg PO DAILY [facility]; Protocol Last Admin: 09/07/23 07:55 Dose: 2.5 mg Documented By: RUPERTO Apixaban (Apixaban 5 Mg Tablet) 5 mg PO BID [facility] Last Admin: 09/07/23 07:55 Dose: 5 mg Documented By: RUPERTO Calcium Carbonate (Calcium Carbonate 750 Mg Tab.Chew) 750 mg PO Q4H PRN PRN Reason: Heartburn Clonazepam (Clonazepam 1 Mg Tablet) 1 mg PO DAILY [facility] Last Admin: 09/07/23 07:56 Dose: 1 mg Documented By: RUPERTO Clonazepam (Clonazepam 1 Mg Tablet) 1 mg PO DAILY@2200 [facility] Last Admin: 09/06/23 21:27 Dose: 1 mg Documented By: KATHIE Docusate Sodium (Docusate Sodium 100 Mg Capsule) 100 mg PO BID [facility] Last Admin: 09/07/23 07:56 Dose: 100 mg Documented By: RUPERTO Fluconazole (Fluconazole 100 Mg Tablet) 100 mg PO DAILY [facility] Last Admin: 09/07/23 07:56 Dose: 100 mg Documented By: RUPERTO Fluticasone/Vilanterol (Fluticasone/Vilanterol 200/25 Blst.W.Dev) 1 puff INHALE RDAILY [facility] Last Admin: 09/07/23 07:55 Dose: 1 puff Documented By: CHELO Furosemide (Furosemide 20 Mg Tablet) 20 mg PO DAILY [facility]; Protocol Last Admin: 09/07/23 07:55 Dose: 20 mg Documented By: RUPERTO Gabapentin (Gabapentin 300 Mg Capsule) 300 mg PO TID [facility] Last Admin: 09/07/23 07:56 Dose: 300 mg Documented By: RUPERTO Glucose (Glucose Gel 15 Gm Gel..Gram.) 15 gm PO Q15M PRN; Protocol PRN Reason: per Hypoglycemia Standing Ord. Hydromorphone HCl (Hydromorphone Hcl 0.5 Mg/0.5 Ml Syringe) 0.5 mg IVPUSH Q4H PRN; Protocol PRN Reason: Pain, Severe (Pain Scale 7-10) Last Admin: 09/07/23 00:59 Dose: 0.5 mg Documented By: NATHANAEL Dextrose (D10) 250 mls @ 750 mls/hr IV Q15M PRN; Protocol PRN Reason: per Hypoglycemia Standing Ord. Insulin Human Lispro (Insulin Lispro 100 Unit/Ml 3 Ml Vial) 0 unit SUBCUT QIDACHS [facility]; Protocol Last Admin: 09/07/23 11:44 Dose: Not Given Documented By: RUPERTO Non-Admin Reason: No Insulin Coverage Levofloxacin (Levofloxacin 500 Mg Tablet) 500 mg PO Q24H [facility] Last Admin: 09/07/23 06:19 Dose: 500 mg Documented By: NATHANAEL Lurasidone HCl (Lurasidone Hcl 40 Mg Tablet) 120 mg PO DAILY [facility] Last Admin: 09/07/23 07:56 Dose: 120 mg Documented By: RUPERTO Magnesium Hydroxide (Milk Of Magnesia 30 Ml Oral.Susp) 30 ml PO DAILY PRN PRN Reason: Constipation Last Admin: 09/06/23 19:10 Dose: 30 ml Documented By: KATHIE Magnesium Oxide (Magnesium Oxide 400 Mg Tablet) 400 mg PO BIDPC [facility] Last Admin: 09/07/23 07:55 Dose: 400 mg Documented By: RUPERTO Melatonin (Melatonin 3 Mg Tablet) 6 mg PO BEDTIME PRN PRN Reason: Insomnia Melatonin (Melatonin 3 Mg Tablet) 18 mg PO BEDTIME [facility] Last Admin: 09/06/23 21:28 Dose: 18 mg Documented By: KATHIE Metronidazole (Metronidazole 500 Mg Tablet) 500 mg PO Q12H [facility] Last Admin: 09/07/23 11:46 Dose: 500 mg Documented By: RUPERTO Non-Formulary Medication (Bupropion Hcl) 100 mg PO DAILY [facility] Omeprazole (Omeprazole 20 Mg Capsule.Dr) 20 mg PO DAILY [facility] Last Admin: 09/07/23 07:56 Dose: 20 mg Documented By: RUPERTO Ondansetron HCl (Ondansetron Hcl 4 Mg/2 Ml Vial) 4 mg IVPUSH QID PRN PRN Reason: Nausea Last Admin: 09/05/23 13:46 Dose: 4 mg Documented By: CAROL Oxycodone HCl (Oxycodone Hcl Immed Release 5 Mg Tablet) 10 mg PO Q6H PRN PRN Reason: Pain, Moderate(Pain Scale 4-6) Last Admin: 09/07/23 11:47 Dose: 10 mg Documented By: RUPERTO Polyethylene Glycol (Polyethylene Glycol 3350 17 Gm Powd.Pack) 17 gm PO BID [facility] Last Admin: 09/07/23 07:55 Dose: 17 gm Documented By: RUPERTO Pramipexole Dihydrochloride (Pramipexole Di-Hcl 0.25 Mg Tablet) 0.25 mg PO DAILY [facility] Last Admin: 09/07/23 07:56 Dose: 0.25 mg Documented By: RUPERTO Sodium Biphosphate/Sodium Phosphate (Sodium Phosphate,[place]-Dibasic 133 Ml Enema) 133 ml [place] ONCE PRN PRN Reason: Constipation Last Admin: 09/07/23 09:01 Dose: 133 ml Documented By: RUPERTO Sodium Chloride (0.9 % Sodium Chloride Flush 3 Ml Syringe) 3 ml IVFLUSH QSHIFT [facility] Last Admin: 09/07/23 07:26 Dose: 3 ml Documented By: RUPERTO Trazodone HCl (Trazodone Hcl 100 Mg Tablet) 300 mg PO BEDTIME [facility] Last Admin: 09/06/23 21:28 Dose: 300 mg Documented By: KATHIE Vitamin D (Cholecalciferol (Vitamin D3) 25 Mcg Tablet) 50 mcg PO DAILY [facility] Last Admin: 09/07/23 07:56 Dose: 50 mcg Documented By: RUPERTO Vortioxetine (Vortioxetine Hydrobromide 20 Mg Tablet) 20 mg PO DAILY [facility] Last Admin: 09/07/23 07:56 Dose: 20 mg Documented By: RUPERTO Labs 09/08/23 05:43 09/08/23 05:43 Labs: Laboratory Results - last 24 hr 09/06/23 09/06/23 09/07/23 16:17 20:25 07:23 POC Glucose 83 109 90 09/07/23 11:33 POC Glucose 82 Assessment and Plan (1) Abdominal wall fluid collections: Status: Acute Assessment and Plan: 62-year-old female with history of moderate persistent asthma, hypertension, history of pulmonary embolism on Eliquis, [id number] type 2 diabetes, rubs/leg syndrome, bipolar disorder, peripheral neuropathy, lumbar spondylolisthesis, GERD, history of polysubstance abuse in remission admitted to general surgery for evaluation abdominal pain in a patient who is 5 days s/p wound exploration with abdominal wall debridement of granulation tissue and incision and drainage of the abdominal wall abscess in the left upper quadrant for foreign body reaction of the abdominal wall following history of perforated marginal ulcer s/p Ruben patch. Consult was placed to hospitalist service due to syncopal episode which patient reports occurred 2 days ago Syncope: workup tele seems fine, orthostatic negative, echo:The left ventricular systolic function is normal. The calculated ejection fraction is 59% by biplane method. No obvious valvular pathology seen on this study. Head Ct negative for acute intracranial abnormality. No focal neuro deficits possible polypharmacy contributing: multiple sedating medications including gabapentin 800 mg twice daily, Lyrica 200 mg twice daily, clonazepam 1 mg every morning and 2 mg in the evening along with lorazepam 1 mg twice daily. She is taking oxycodone 5mg QID. She is also taking 300 mg of trazodone at bedtime in addition to Latuda. hold lyrica,adjusted gabapentin to 300mg TID,Stop lorazepam. Continue clonazepam 1mg daily and adjusted evening dose to 1mg. pain management per general surgery. Change oxycodone to prn, not scheduled hand pain left sided : xray shows Mild to moderate degenerative changes of the left hand. No fracture. pain management and encouarge rom. hypomagnesemia : repleted continue po magnesium abd wall collections : vanco trough 15-16.2 previous abd cultures (08/22)-klebsella-senstive to levaquin abd cultures (08/29) -strep anginosus pansenstive d/w surgery and ID-on levaquin/flagyl, vanco stopped, consider stopping diflucan HTN BP ok, continue amlodipine, Lasix, metoprolol. Resume as blood pressure improves as appropriate type 2 diabetes-diet controlled -change to diabetic diet -POC glucose, Admelog sliding scale bipolar disorder continue Latuda, trazodone. her home psych meds were adjusted as above hx of pulm embolism : continue apixiban. GERD-PPI dispo:as per primary team Quality Stroke Does the patient have a stroke diagnosis?: No VTE Prior VTE?: No VTE Risk Level:: Surgical - moderate VTE Device Contraindication: N/A - Device Ordered VTE Drug Contraindication: N/A - Med Ordered
[2023-09-07 16:19] LABS: Glucose, Whole Blood 100 mg/dL (60-115)
[2023-09-07 20:12] LABS: Glucose, Whole Blood 99 mg/dL (60-115)
[2023-09-07] MEDS: traZODone HCL 100 MG TABLET 300 MG PO (21:29)
[2023-09-07] MEDS: Melatonin 3 MG TABLET 18 MG PO (21:30)
[2023-09-08] VITALS (9 sets, daily range): BP systolic 117–140; BP diastolic 55–76; PULSE 60–73; RESP 18; TEMP 36.4–36.9; O2SAT 92–97
[2023-09-08] MEDS: oxyCODONE HCl Immed Release 5 MG TABLET 10 MG PO ×3 (03:37→22:00)
[2023-09-08] MEDS: levoFLOXacin 500 MG TABLET PO (05:44)
[2023-09-08 06:46] LABS: MANUAL DIFF FLAG NO
[2023-09-08 06:50] LABS: Basophils Absolute Auto 0.1 X10*3/uL (0.0-0.2); Basophils Percent Auto 0.8 % (0-2); Eosinophils Absolute Auto 0.4 X10*3/uL (0.0-0.4); Eosinophils Percent Auto 6.5 % (0-4); Hemoglobin 10.2 g/dl (12.0-16.0); Imm Gran Abs Auto 0.02 X10*3/uL (0.00-0.03); Imm Gran Pct Auto 0.3 % (0.0-0.4); Lymphocytes Absolute Auto 1.8 X10*3/uL (1.2-4.9); Lymphocytes Percent Auto 27.2 % (20-40); Mean Corpuscular HGB Conc 31.9 g/dl (31.0-35.0); Mean Corpuscular Hemoglobin 29.9 pg (27.0-33.0); Mean Corpuscular Volume 93.8 fL (80.0-98.0); Mean Platelet Volume 11.7 fL (9.4-12.3); Monocytes Absolute Auto 0.6 X10*3/uL (0.1-1.2); Monocytes Percent Auto 9.3 % (2-11); Neutrophils Absolute Auto 3.6 x10*3/uL (2.0-8.3); Neutrophils Percent Auto 55.9 % (45-73); Platelet Count 156 X10*3/uL (160-400); Red Blood Count 3.41 X10*6/uL (4.20-5.50); Red Cell Distribution Width 16.5 % (11.0-16.0); White Blood Count 6.5 X10*3/uL (4.8-10.8)
[2023-09-08 07:06] LABS: Anion Gap 10 (12-20); Blood Urea Nitrogen 4 mg/dL (9-16); Calcium 9.3 mg/dL (8.4-10.2); Carbon Dioxide 33 mmol/L (22-29); Chloride 103 mmol/L (96-108); Creatinine Clr Calc Pharmacy 74.7; Estimated Glomerular Filt Rate > 60; Glucose Random 92 mg/dL (60-115); Sodium 142 mmol/L (135-145)
[2023-09-08 07:41] LABS: Glucose, Whole Blood 84 mg/dL (60-115)
[2023-09-08] MEDS: HYDROmorphone HCl 0.5 MG/0.5 ML SYRINGE IVPUSH ×2 (07:47→18:03)
[2023-09-08] MEDS: Lurasidone HCl 40 MG TABLET 120 MG PO (07:48)
[2023-09-08] MEDS: Pramipexole Di-HCL 0.25 MG TABLET PO (07:48)
[2023-09-08] MEDS: Magnesium Oxide 400 MG TABLET PO ×2 (07:48→17:14)
[2023-09-08] MEDS: Docusate Sodium 100 MG CAPSULE PO ×2 (07:48→21:47)
[2023-09-08] MEDS: Fluconazole 100 MG TABLET PO (07:48)
[2023-09-08] MEDS: Omeprazole 20 MG CAPSULE.DR PO (07:49)
[2023-09-08] MEDS: amLODIPine Besylate 2.5 MG TABLET PO (07:49)
[2023-09-08] MEDS: clonazePAM 1 MG TABLET PO ×2 (07:49→21:48)
[2023-09-08] MEDS: Gabapentin 300 MG CAPSULE PO ×3 (07:49→21:47)
[2023-09-08] MEDS: Vortioxetine Hydrobromide 20 MG TABLET PO (07:49)
[2023-09-08] MEDS: Cholecalciferol (Vitamin D3) 25 MCG TABLET 50 MCG PO (07:49)
[2023-09-08] MEDS: Furosemide 20 MG TABLET PO (07:50)
[2023-09-08] MEDS: 0.9 % Sodium Chloride Flush 3 ML SYRINGE IVFLUSH ×3 (07:50→21:51)
[2023-09-08] MEDS: Apixaban 5 MG TABLET PO (07:50)
[2023-09-08] MEDS: polyethylene glycoL 3350 17 GM POWD.PACK PO (07:50)
--- NOTE | 2023-09-08 08:08 | P.PNGS_ITS ---
Subjective Subjective Date of Service: 09/08/23 Interval history: Reports some abdominal pain mainly in the left upper quadrant. She is tolerating regular diet and had a large bowel movement yesterday. Physical Exam 2 Vital Signs: Vital Signs: Last Vital Signs Temp 98.2 F 09/08/23 07:36 Pulse 65 09/08/23 07:36 Resp 18 09/08/23 07:36 BP 125/59 L 09/08/23 07:50 Pulse Ox 94 09/08/23 07:36 O2 Del Method Room Air 09/08/23 07:36 BMI result Body Mass Index 31.3 Const: General: no acute distress Nutritional Appearance: well nourished Orientation/consciousness: patient oriented x3 Resp: Effort & Inspection: normal respiratory effort GI: Other: Dressings changed abdominal wound. Depth of wound remains at 2.5 cm but the diameter seems to be decreasing significantly. Wounds repacked with quarter- inch Nu Gauze. Left upper quadrant trocar incision (from prior gastric bypass surgery) also opened with a Q-tip swab and packed with quarter-inch Nu Gauze. A small amount of purulence discharge was noted from this incision. Clean sterile dressings applied. Neuro: General: patient oriented x3 Objective Data Active Medications Acetaminophen/Butalbital/Caffeine (Butalb/Acetamin/Caff 50/325/40 Tablet) 1 tab PO Q6H PRN PRN Reason: Migraine Headache Albuterol Sulfate (Albuterol Sulfate 90 Mcg 8 Gm Inhaler) 2 puff INHALE Q6H PRN PRN Reason: Shortness Of Breath Amlodipine Besylate (Amlodipine Besylate 2.5 Mg Tablet) 2.5 mg PO DAILY [facility]; Protocol Last Admin: 09/08/23 07:49 Dose: 2.5 mg Documented By: JASPAL Apixaban (Apixaban 5 Mg Tablet) 5 mg PO BID [facility] Last Admin: 09/08/23 07:50 Dose: 5 mg Documented By: JASPAL Calcium Carbonate (Calcium Carbonate 750 Mg Tab.Chew) 750 mg PO Q4H PRN PRN Reason: Heartburn Clonazepam (Clonazepam 1 Mg Tablet) 1 mg PO DAILY [facility] Last Admin: 09/08/23 07:49 Dose: 1 mg Documented By: JASPAL Clonazepam (Clonazepam 1 Mg Tablet) 1 mg PO DAILY@2200 [facility] Last Admin: 09/07/23 21:30 Dose: 1 mg Documented By: LUCY Docusate Sodium (Docusate Sodium 100 Mg Capsule) 100 mg PO BID [facility] Last Admin: 09/08/23 07:48 Dose: 100 mg Documented By: JASPAL Fluconazole (Fluconazole 100 Mg Tablet) 100 mg PO DAILY [facility] Last Admin: 09/08/23 07:48 Dose: 100 mg Documented By: JASPAL Fluticasone/Vilanterol (Fluticasone/Vilanterol 200/25 Blst.W.Dev) 1 puff INHALE RDAILY [facility] Last Admin: 09/07/23 07:55 Dose: 1 puff Documented By: CHELO Furosemide (Furosemide 20 Mg Tablet) 20 mg PO DAILY [facility]; Protocol Last Admin: 09/08/23 07:50 Dose: 20 mg Documented By: JASPAL Gabapentin (Gabapentin 300 Mg Capsule) 300 mg PO TID [facility] Last Admin: 09/08/23 07:49 Dose: 300 mg Documented By: JASPAL Glucose (Glucose Gel 15 Gm Gel..Gram.) 15 gm PO Q15M PRN; Protocol PRN Reason: per Hypoglycemia Standing Ord. Hydromorphone HCl (Hydromorphone Hcl 0.5 Mg/0.5 Ml Syringe) 0.5 mg IVPUSH Q4H PRN; Protocol PRN Reason: Pain, Severe (Pain Scale 7-10) Last Admin: 09/08/23 07:47 Dose: 0.5 mg Documented By: JASPAL Dextrose (D10) 250 mls @ 750 mls/hr IV Q15M PRN; Protocol PRN Reason: per Hypoglycemia Standing Ord. Insulin Human Lispro (Insulin Lispro 100 Unit/Ml 3 Ml Vial) 0 unit SUBCUT QIDACHS [facility]; Protocol Last Admin: 09/08/23 07:46 Dose: Not Given Documented By: JASPAL Non-Admin Reason: No Insulin Coverage Levofloxacin (Levofloxacin 500 Mg Tablet) 500 mg PO Q24H [facility] Last Admin: 09/08/23 05:44 Dose: 500 mg Documented By: LUCY Lurasidone HCl (Lurasidone Hcl 40 Mg Tablet) 120 mg PO DAILY [facility] Last Admin: 09/08/23 07:48 Dose: 120 mg Documented By: JASPAL Magnesium Hydroxide (Milk Of Magnesia 30 Ml Oral.Susp) 30 ml PO DAILY PRN PRN Reason: Constipation Last Admin: 09/06/23 19:10 Dose: 30 ml Documented By: KATHIE Magnesium Oxide (Magnesium Oxide 400 Mg Tablet) 400 mg PO BIDPC [facility] Last Admin: 09/08/23 07:48 Dose: 400 mg Documented By: JAPSAL Melatonin (Melatonin 3 Mg Tablet) 6 mg PO BEDTIME PRN PRN Reason: Insomnia Melatonin (Melatonin 3 Mg Tablet) 18 mg PO BEDTIME [facility] Last Admin: 09/07/23 21:30 Dose: 18 mg Documented By: LUCY Metronidazole (Metronidazole 500 Mg Tablet) 500 mg PO Q12H [facility] Last Admin: 09/07/23 23:15 Dose: 500 mg Documented By: LUCY Non-Formulary Medication (Bupropion Hcl) 100 mg PO DAILY [facility] Omeprazole (Omeprazole 20 Mg Capsule.) 20 mg PO DAILY [facility] Last Admin: 09/08/23 07:49 Dose: 20 mg Documented By: JASPAL Ondansetron HCl (Ondansetron Hcl 4 Mg/2 Ml Vial) 4 mg IVPUSH QID PRN PRN Reason: Nausea Last Admin: 09/05/23 13:46 Dose: 4 mg Documented By: CAROL Oxycodone HCl (Oxycodone Hcl Immed Release 5 Mg Tablet) 10 mg PO Q6H PRN PRN Reason: Pain, Moderate(Pain Scale 4-6) Last Admin: 09/08/23 03:37 Dose: 10 mg Documented By: LUCY Polyethylene Glycol (Polyethylene Glycol 3350 17 Gm Powd.Pack) 17 gm PO BID [facility] Last Admin: 09/08/23 07:50 Dose: 17 gm Documented By: JASPAL Pramipexole Dihydrochloride (Pramipexole Di-Hcl 0.25 Mg Tablet) 0.25 mg PO DAILY [facility] Last Admin: 09/08/23 07:48 Dose: 0.25 mg Documented By: JASPAL Sodium Biphosphate/Sodium Phosphate (Sodium Phosphate,[place]-Dibasic 133 Ml Enema) 133 ml [place] ONCE PRN PRN Reason: Constipation Last Admin: 09/07/23 09:01 Dose: 133 ml Documented By: RUPERTO Sodium Chloride (0.9 % Sodium Chloride Flush 3 Ml Syringe) 3 ml IVFLUSH QSHIFT [facility] Last Admin: 09/08/23 07:50 Dose: 3 ml Documented By: JASPAL Trazodone HCl (Trazodone Hcl 100 Mg Tablet) 300 mg PO BEDTIME [facility] Last Admin: 09/07/23 21:29 Dose: 300 mg Documented By: LUCY Vitamin D (Cholecalciferol (Vitamin D3) 25 Mcg Tablet) 50 mcg PO DAILY [facility] Last Admin: 09/08/23 07:49 Dose: 50 mcg Documented By: JASPAL Vortioxetine (Vortioxetine Hydrobromide 20 Mg Tablet) 20 mg PO DAILY [facility] Last Admin: 09/08/23 07:49 Dose: 20 mg Documented By: JASPAL Labs 09/08/23 05:43 09/08/23 05:43 Labs: Laboratory Results - last 24 hr 09/07/23 09/07/23 09/07/23 11:33 16:15 20:06 MCV MCH MCHC RDW Plt Count MPV Immature Gran % (Auto) Neut % (Auto) Lymph % (Auto) [place] % (Auto) Eos % (Auto) Baso % (Auto) Lymph # (Auto) [place] # (Auto) Eos # (Auto) Baso # (Auto) Abs Immat Gran (auto) Absolute Neuts (auto) Absolute Nucleated RBC Nucleated RBC % (auto) Anion Gap Estim Creat Clear Calc Estimated GFR POC Glucose 82 100 99 Random Glucose Calcium 09/08/23 09/08/23 05:43 07:34 MCV 93.8 MCH 29.9 MCHC 31.9 RDW 16.5 H Plt Count 156 L D MPV 11.7 Immature Gran % (Auto) 0.3 Neut % (Auto) 55.9 Lymph % (Auto) 27.2 [place] % (Auto) 9.3 Eos % (Auto) 6.5 H Baso % (Auto) 0.8 Lymph # (Auto) 1.8 [place] # (Auto) 0.6 Eos # (Auto) 0.4 Baso # (Auto) 0.1 Abs Immat Gran (auto) 0.02 Absolute Neuts (auto) 3.6 Absolute Nucleated RBC 0.000 Nucleated RBC % (auto) 0.0 Anion Gap 10 L Estim Creat Clear Calc 74.7 Estimated GFR > 60 POC Glucose 84 Random Glucose 92 Calcium 9.3 D Procedures Date of Service Date of Service: 09/08/23 Progress Note: A&P Assessment and plan (1) Abdominal wall fluid collections: Status: Acute Plan Abdominal wounds are much improved with markedly decreased discharge, mainly serous output. Pocket is closing nicely. The left upper quadrant trocar site was packed with Nu Gauze as well. No evidence of enterocutaneous fistula at this time. Continue local wound care We will stop antibiotics Anticipate discharge in the next 1-2 days if afebrile Time Spent With Patient Time: Total time managing care of this patient today ____ minutes. Quality Stroke Does the patient have a stroke diagnosis?: No VTE Prior VTE?: No VTE Risk Level:: Surgical - moderate VTE Device Contraindication: N/A - Device Ordered VTE Drug Contraindication: N/A - Med Ordered
[2023-09-08] MEDS: Fluticasone/Vilanterol 200/25 BLST.W.DEV 1 PUFF INHALE (08:29)
--- NOTE | 2023-09-08 08:47 | MHC.CM.PN ---
Patient not medically cleared for dc at this time. Per surgery note, anticipate dc in 1-2 days. [facility] updated. CM will continue to follow.
[2023-09-08 11:26] LABS: Glucose, Whole Blood 110 mg/dL (60-115)
--- NOTE | 2023-09-08 13:01 | P.PNGI_ITS ---
Subjective Subjective Date of Service: 09/08/23 Interval History: less drainage some epigastric discomfort Critical Care Time (minutes): 0 Physical Exam 2 Vital Signs: Vital Signs: Last Vital Signs Temp 97.8 F 09/08/23 11:17 Pulse 60 09/08/23 11:17 Resp 18 09/08/23 11:17 BP 117/55 L 09/08/23 11:17 Pulse Ox 94 09/08/23 11:17 O2 Del Method Room Air 09/08/23 11:17 BMI result Body Mass Index 31.3 GI: Other: abd is soft, mild epigastric discomfort Objective Data Labs 09/08/23 05:43 09/08/23 05:43 Labs: Laboratory Results - last 24 hr 09/07/23 09/07/23 09/08/23 16:15 20:06 05:43 WBC 6.5 RBC 3.41 L Hgb 10.2 L Hct 32.0 L MCV 93.8 MCH 29.9 MCHC 31.9 RDW 16.5 H Plt Count 156 L D MPV 11.7 Immature Gran % (Auto) 0.3 Neut % (Auto) 55.9 Lymph % (Auto) 27.2 [place] % (Auto) 9.3 Eos % (Auto) 6.5 H Baso % (Auto) 0.8 Lymph # (Auto) 1.8 [place] # (Auto) 0.6 Eos # (Auto) 0.4 Baso # (Auto) 0.1 Abs Immat Gran (auto) 0.02 Absolute Neuts (auto) 3.6 Absolute Nucleated RBC 0.000 Nucleated RBC % (auto) 0.0 Sodium 142 Potassium 4.0 D Chloride 103 Carbon Dioxide 33 H Anion Gap 10 L BUN 4 L Creatinine 0.83 Estim Creat Clear Calc 74.7 Estimated GFR > 60 POC Glucose 100 99 Random Glucose 92 Calcium 9.3 D 09/08/23 09/08/23 07:34 11:20 WBC RBC Hgb Hct MCV MCH MCHC RDW Plt Count MPV Immature Gran % (Auto) Neut % (Auto) Lymph % (Auto) [place] % (Auto) Eos % (Auto) Baso % (Auto) Lymph # (Auto) [place] # (Auto) Eos # (Auto) Baso # (Auto) Abs Immat Gran (auto) Absolute Neuts (auto) Absolute Nucleated RBC Nucleated RBC % (auto) Sodium Potassium Chloride Carbon Dioxide Anion Gap BUN Creatinine Estim Creat Clear Calc Estimated GFR POC Glucose 84 110 Random Glucose Calcium Microbiology Microbiology Results: Microbiology 08/30/23 00:21 Blood - Venous Blood Culture - Final No growth after 5 days. 08/30/23 00:21 Blood - Venous Blood Culture - Final No growth after 5 days. 08/30/23 00:23 Abdomen - Abdominal Gram Stain - Final 08/30/23 00:23 Abdomen - Abdominal Routine Culture - Final Streptococcus anginosus 08/30/23 Unknown Urine clean catch - Clean Catch Midstream Urine Culture - Final No growth. Procedures Date of Service Date of Service: 09/08/23 Progress Note: A&P Assessment and plan (1) Abdominal pain: Status: Acute Assessment and Plan: EGD tomorrow for further evaluation of abd pain and h/o ulcer she is aware of risks and benefits and agrees to proceed. Time Spent With Patient Time: Total time managing care of this patient today ____ minutes. Quality Stroke Does the patient have a stroke diagnosis?: No VTE Prior VTE?: No VTE Risk Level:: Surgical - moderate VTE Device Contraindication: N/A - Device Ordered VTE Drug Contraindication: N/A - Med Ordered
[2023-09-08 16:02] LABS: Glucose, Whole Blood 89 mg/dL (60-115)
--- NOTE | 2023-09-08 16:31 | P.PNIM_ITS ---
Subjective Subjective Date of Service: 09/08/23 Interval History: seen in f/u for med consult, no new issues Physical Exam 2 Vital Signs: Vital Signs: Last Vital Signs Temp 98.2 F 09/08/23 15:26 Pulse 70 09/08/23 15:26 Resp 18 09/08/23 15:26 BP 117/71 09/08/23 15:26 Pulse Ox 93 09/08/23 15:26 O2 Del Method Room Air 09/08/23 15:26 BMI result Body Mass Index 31.3 . General: AO X 3, no acute distress Resp: CTA bilateral CVS: S1,S2,RRR GI: +BS, NT, no distention, wound dressing in place Skin: No rash Neuro: motor grossly intact Psych: appropriate affect Objective Data Active Medications Acetaminophen/Butalbital/Caffeine (Butalb/Acetamin/Caff 50/325/40 Tablet) 1 tab PO Q6H PRN PRN Reason: Migraine Headache Albuterol Sulfate (Albuterol Sulfate 90 Mcg 8 Gm Inhaler) 2 puff INHALE Q6H PRN PRN Reason: Shortness Of Breath Amlodipine Besylate (Amlodipine Besylate 2.5 Mg Tablet) 2.5 mg PO DAILY [facility]; Protocol Last Admin: 09/08/23 07:49 Dose: 2.5 mg Documented By: JASPAL Apixaban (Apixaban 5 Mg Tablet) 5 mg PO BID [facility] Last Admin: 09/08/23 07:50 Dose: 5 mg Documented By: JASPAL Calcium Carbonate (Calcium Carbonate 750 Mg Tab.Chew) 750 mg PO Q4H PRN PRN Reason: Heartburn Clonazepam (Clonazepam 1 Mg Tablet) 1 mg PO DAILY [facility] Last Admin: 09/08/23 07:49 Dose: 1 mg Documented By: JASPAL Clonazepam (Clonazepam 1 Mg Tablet) 1 mg PO DAILY@2200 [facility] Last Admin: 09/07/23 21:30 Dose: 1 mg Documented By: LUCY Docusate Sodium (Docusate Sodium 100 Mg Capsule) 100 mg PO BID [facility] Last Admin: 09/08/23 07:48 Dose: 100 mg Documented By: JASPAL Fluticasone/Vilanterol (Fluticasone/Vilanterol 200/25 Blst.W.Dev) 1 puff INHALE RDAILY [facility] Last Admin: 09/08/23 08:29 Dose: 1 puff Documented By: CHELO Furosemide (Furosemide 20 Mg Tablet) 20 mg PO DAILY [facility]; Protocol Last Admin: 09/08/23 07:50 Dose: 20 mg Documented By: JASPAL Gabapentin (Gabapentin 300 Mg Capsule) 300 mg PO TID [facility] Last Admin: 09/08/23 16:02 Dose: 300 mg Documented By: JASPAL Glucose (Glucose Gel 15 Gm Gel..Gram.) 15 gm PO Q15M PRN; Protocol PRN Reason: per Hypoglycemia Standing Ord. Hydromorphone HCl (Hydromorphone Hcl 0.5 Mg/0.5 Ml Syringe) 0.5 mg IVPUSH Q4H PRN; Protocol PRN Reason: Pain, Severe (Pain Scale 7-10) Last Admin: 09/08/23 07:47 Dose: 0.5 mg Documented By: JASPAL Dextrose (D10) 250 mls @ 750 mls/hr IV Q15M PRN; Protocol PRN Reason: per Hypoglycemia Standing Ord. Insulin Human Lispro (Insulin Lispro 100 Unit/Ml 3 Ml Vial) 0 unit SUBCUT QIDACHS [facility]; Protocol Last Admin: 09/08/23 16:00 Dose: Not Given Documented By: JASPAL Non-Admin Reason: No Insulin Coverage Lurasidone HCl (Lurasidone Hcl 40 Mg Tablet) 120 mg PO DAILY [facility] Last Admin: 09/08/23 07:48 Dose: 120 mg Documented By: JASPAL Magnesium Hydroxide (Milk Of Magnesia 30 Ml Oral.Susp) 30 ml PO DAILY PRN PRN Reason: Constipation Last Admin: 09/06/23 19:10 Dose: 30 ml Documented By: KATHIE Magnesium Oxide (Magnesium Oxide 400 Mg Tablet) 400 mg PO BIDPC [facility] Last Admin: 09/08/23 07:48 Dose: 400 mg Documented By: JASPAL Melatonin (Melatonin 3 Mg Tablet) 6 mg PO BEDTIME PRN PRN Reason: Insomnia Melatonin (Melatonin 3 Mg Tablet) 18 mg PO BEDTIME [facility] Last Admin: 09/07/23 21:30 Dose: 18 mg Documented By: LUCY Non-Formulary Medication (Bupropion Hcl) 100 mg PO DAILY [facility] Omeprazole (Omeprazole 20 Mg Capsule.Dr) 20 mg PO DAILY [facility] Last Admin: 09/08/23 07:49 Dose: 20 mg Documented By: JASPAL Ondansetron HCl (Ondansetron Hcl 4 Mg/2 Ml Vial) 4 mg IVPUSH QID PRN PRN Reason: Nausea Last Admin: 09/05/23 13:46 Dose: 4 mg Documented By: CAROL Oxycodone HCl (Oxycodone Hcl Immed Release 5 Mg Tablet) 10 mg PO Q6H PRN PRN Reason: Pain, Moderate(Pain Scale 4-6) Last Admin: 09/08/23 10:40 Dose: 10 mg Documented By: GERALD Polyethylene Glycol (Polyethylene Glycol 3350 17 Gm Powd.Pack) 17 gm PO BID [facility] Last Admin: 09/08/23 07:50 Dose: 17 gm Documented By: JASPAL Pramipexole Dihydrochloride (Pramipexole Di-Hcl 0.25 Mg Tablet) 0.25 mg PO DAILY [facility] Last Admin: 09/08/23 07:48 Dose: 0.25 mg Documented By: JASPAL Sodium Biphosphate/Sodium Phosphate (Sodium Phosphate,[place]-Dibasic 133 Ml Enema) 133 ml [place] ONCE PRN PRN Reason: Constipation Last Admin: 09/07/23 09:01 Dose: 133 ml Documented By: RUPERTO Sodium Chloride (0.9 % Sodium Chloride Flush 3 Ml Syringe) 3 ml IVFLUSH QSHIFT [facility] Last Admin: 09/08/23 16:03 Dose: 3 ml Documented By: JASPAL Trazodone HCl (Trazodone Hcl 100 Mg Tablet) 300 mg PO BEDTIME [facility] Last Admin: 09/07/23 21:29 Dose: 300 mg Documented By: LUCY Vitamin D (Cholecalciferol (Vitamin D3) 25 Mcg Tablet) 50 mcg PO DAILY [facility] Last Admin: 09/08/23 07:49 Dose: 50 mcg Documented By: JASPAL Vortioxetine (Vortioxetine Hydrobromide 20 Mg Tablet) 20 mg PO DAILY [facility] Last Admin: 09/08/23 07:49 Dose: 20 mg Documented By: JASPAL Labs 09/08/23 05:43 09/08/23 05:43 Labs: Laboratory Results - last 24 hr 09/07/23 09/08/23 09/08/23 20:06 05:43 07:34 MCV 93.8 MCH 29.9 MCHC 31.9 RDW 16.5 H Plt Count 156 L D MPV 11.7 Immature Gran % (Auto) 0.3 Neut % (Auto) 55.9 Lymph % (Auto) 27.2 [place] % (Auto) 9.3 Eos % (Auto) 6.5 H Baso % (Auto) 0.8 Lymph # (Auto) 1.8 [place] # (Auto) 0.6 Eos # (Auto) 0.4 Baso # (Auto) 0.1 Abs Immat Gran (auto) 0.02 Absolute Neuts (auto) 3.6 Absolute Nucleated RBC 0.000 Nucleated RBC % (auto) 0.0 Anion Gap 10 L Estim Creat Clear Calc 74.7 Estimated GFR > 60 POC Glucose 99 84 Random Glucose 92 Calcium 9.3 D 09/08/23 09/08/23 11:20 15:58 MCV MCH MCHC RDW Plt Count MPV Immature Gran % (Auto) Neut % (Auto) Lymph % (Auto) [place] % (Auto) Eos % (Auto) Baso % (Auto) Lymph # (Auto) [place] # (Auto) Eos # (Auto) Baso # (Auto) Abs Immat Gran (auto) Absolute Neuts (auto) Absolute Nucleated RBC Nucleated RBC % (auto) Anion Gap Estim Creat Clear Calc Estimated GFR POC Glucose 110 89 Random Glucose Calcium Assessment and Plan (1) Abdominal wall fluid collections: Status: Acute Assessment and Plan: 62-year-old female with history of moderate persistent asthma, hypertension, history of pulmonary embolism on Eliquis, kug-aoghala-lsqyrgtaw type 2 diabetes, rubs/leg syndrome, bipolar disorder, peripheral neuropathy, lumbar spondylolisthesis, GERD, history of polysubstance abuse in remission admitted to general surgery for evaluation abdominal pain in a patient who is 5 days s/p wound exploration with abdominal wall debridement of granulation tissue and incision and drainage of the abdominal wall abscess in the left upper quadrant for foreign body reaction of the abdominal wall following history of perforated marginal ulcer s/p Ruben patch. Consult was placed to hospitalist service due to syncopal episode which patient reports occurred 2 days ago Syncope: workup tele seems fine, orthostatic negative, echo:The left ventricular systolic function is normal. The calculated ejection fraction is 59% by biplane method. No obvious valvular pathology seen on this study. Head Ct negative for acute intracranial abnormality. No focal neuro deficits possible polypharmacy contributing: multiple sedating medications including gabapentin 800 mg twice daily, Lyrica 200 mg twice daily, clonazepam 1 mg every morning and 2 mg in the evening along with lorazepam 1 mg twice daily. She is taking oxycodone 5mg QID. She is also taking 300 mg of trazodone at bedtime in addition to Latuda. hold lyrica,adjusted gabapentin to 300mg TID,Stop lorazepam. Continue clonazepam 1mg daily and adjusted evening dose to 1mg. pain management per general surgery. Change oxycodone to prn, not scheduled hand pain left sided : xray shows Mild to moderate degenerative changes of the left hand. No fracture. pain management and encouarge rom. hypomagnesemia : repleted continue po magnesium abd wall collections : vanco trough 15-16.2 previous abd cultures (08/22)-klebsella-senstive to levaquin abd cultures (08/29) -strep anginosus pansenstive d/w surgery and ID-on levaquin/flagyl, vanco stopped, consider stopping diflucan HTN BP ok, continue amlodipine, Lasix, metoprolol. Resume as blood pressure improves as appropriate type 2 diabetes-diet controlled -change to diabetic diet -POC glucose, Admelog sliding scale bipolar disorder continue Latuda, trazodone. her home psych meds were adjusted as above hx of pulm embolism : continue apixiban. GERD-PPI dispo:as per primary team Quality Stroke Does the patient have a stroke diagnosis?: No VTE Prior VTE?: No VTE Risk Level:: Surgical - moderate VTE Device Contraindication: N/A - Device Ordered VTE Drug Contraindication: N/A - Med Ordered
[2023-09-08 17:05] LABS: Magnesium 2.1 mg/dL (1.6-2.6)
[2023-09-08 20:28] LABS: Glucose, Whole Blood 78 mg/dL (60-115)
[2023-09-08] MEDS: traZODone HCL 100 MG TABLET 300 MG PO (21:47)
[2023-09-08] MEDS: Melatonin 3 MG TABLET 18 MG PO (21:48)
[2023-09-09] VITALS (10 sets, daily range): BP systolic 87–135; BP diastolic 50–75; PULSE 57–73; RESP 16–18; TEMP 36.6–37.2; O2SAT 92–99
[2023-09-09 06:33] LABS: INTERNATIONAL NORM RATIO 1.2 (0.9-1.1); Prothrombin Time 14.3 SEC (11.1-13.3)
[2023-09-09] MEDS: polyethylene glycoL 3350 17 GM POWD.PACK PO (07:27)
[2023-09-09] MEDS: Cholecalciferol (Vitamin D3) 25 MCG TABLET 50 MCG PO (07:28)
[2023-09-09] MEDS: Lurasidone HCl 40 MG TABLET 120 MG PO (07:28)
[2023-09-09] MEDS: oxyCODONE HCl Immed Release 5 MG TABLET 10 MG PO ×3 (07:28→22:03)
[2023-09-09] MEDS: Vortioxetine Hydrobromide 20 MG TABLET PO (07:29)
[2023-09-09] MEDS: Gabapentin 300 MG CAPSULE PO ×3 (07:29→21:37)
[2023-09-09] MEDS: Docusate Sodium 100 MG CAPSULE PO ×2 (07:29→21:37)
[2023-09-09] MEDS: amLODIPine Besylate 2.5 MG TABLET PO (07:29)
[2023-09-09] MEDS: Omeprazole 20 MG CAPSULE.DR PO (07:29)
[2023-09-09] MEDS: Magnesium Oxide 400 MG TABLET PO ×2 (07:30→17:12)
[2023-09-09] MEDS: Furosemide 20 MG TABLET PO (07:30)
[2023-09-09] MEDS: clonazePAM 1 MG TABLET PO ×2 (07:30→21:37)
[2023-09-09] MEDS: 0.9 % Sodium Chloride Flush 3 ML SYRINGE IVFLUSH ×2 (07:31→22:05)
[2023-09-09 07:49] LABS: Glucose, Whole Blood 81 mg/dL (60-115)
[2023-09-09] MEDS: Fluticasone/Vilanterol 200/25 BLST.W.DEV 1 PUFF INHALE (08:26)
--- NOTE | 2023-09-09 09:41 | HO.PM.IMPN ---
Subjective Subjective Date of Service: 09/09/23 Interval History: seen in f/u for med consult, no new issues still with abd pain Physical Exam Vital Signs: Vital Signs: Last Vital Signs Temp 98.1 F 09/09/23 07:55 Pulse 63 09/09/23 08:28 Resp 18 09/09/23 08:28 BP 135/75 09/09/23 07:55 Pulse Ox 96 09/09/23 07:55 O2 Del Method Room Air 09/09/23 07:55 BMI result Body Mass Index 31.3 . General: AO X 3, no acute distress Resp: CTA bilateral CVS: S1,S2,RRR GI: +BS, NT, no distention, wound dressing in place Skin: No rash Neuro: motor grossly intact Psych: appropriate affect Objective Data Active Medications Acetaminophen/Butalbital/Caffeine (Butalb/Acetamin/Caff 50/325/40 Tablet) 1 tab PO Q6H PRN PRN Reason: Migraine Headache Albuterol Sulfate (Albuterol Sulfate 90 Mcg 8 Gm Inhaler) 2 puff INHALE Q6H PRN PRN Reason: Shortness Of Breath Amlodipine Besylate (Amlodipine Besylate 2.5 Mg Tablet) 2.5 mg PO DAILY [facility]; Protocol Last Admin: 09/09/23 07:29 Dose: 2.5 mg Documented By: JASPAL Apixaban (Apixaban 5 Mg Tablet) 5 mg PO BID [facility] Last Admin: 09/08/23 07:50 Dose: 5 mg Documented By: JASPAL Calcium Carbonate (Calcium Carbonate 750 Mg Tab.Chew) 750 mg PO Q4H PRN PRN Reason: Heartburn Clonazepam (Clonazepam 1 Mg Tablet) 1 mg PO DAILY [facility] Last Admin: 09/09/23 07:30 Dose: 1 mg Documented By: JASPAL Clonazepam (Clonazepam 1 Mg Tablet) 1 mg PO DAILY@2200 [facility] Last Admin: 09/08/23 21:48 Dose: 1 mg Documented By: LEDY Docusate Sodium (Docusate Sodium 100 Mg Capsule) 100 mg PO BID [facility] Last Admin: 09/09/23 07:29 Dose: 100 mg Documented By: JASPAL Fluticasone/Vilanterol (Fluticasone/Vilanterol 200/25 Blst.W.Dev) 1 puff INHALE RDAILY [facility] Last Admin: 09/09/23 08:26 Dose: 1 puff Documented By: BROOKS Furosemide (Furosemide 20 Mg Tablet) 20 mg PO DAILY [facility]; Protocol Last Admin: 09/09/23 07:30 Dose: 20 mg Documented By: JASPAL Gabapentin (Gabapentin 300 Mg Capsule) 300 mg PO TID [facility] Last Admin: 09/09/23 07:29 Dose: 300 mg Documented By: JASPAL Glucose (Glucose Gel 15 Gm Gel..Gram.) 15 gm PO Q15M PRN; Protocol PRN Reason: per Hypoglycemia Standing Ord. Hydromorphone HCl (Hydromorphone Hcl 0.5 Mg/0.5 Ml Syringe) 0.5 mg IVPUSH Q4H PRN; Protocol PRN Reason: Pain, Severe (Pain Scale 7-10) Last Admin: 09/08/23 18:03 Dose: 0.5 mg Documented By: JASPAL Dextrose (D10) 250 mls @ 750 mls/hr IV Q15M PRN; Protocol PRN Reason: per Hypoglycemia Standing Ord. Insulin Human Lispro (Insulin Lispro 100 Unit/Ml 3 Ml Vial) 0 unit SUBCUT QIDACHS [facility]; Protocol Last Admin: 09/09/23 07:47 Dose: Not Given Documented By: JASPAL Non-Admin Reason: No Insulin Coverage Lurasidone HCl (Lurasidone Hcl 40 Mg Tablet) 120 mg PO DAILY [facility] Last Admin: 09/09/23 07:28 Dose: 120 mg Documented By: JASPAL Magnesium Hydroxide (Milk Of Magnesia 30 Ml Oral.Susp) 30 ml PO DAILY PRN PRN Reason: Constipation Last Admin: 09/06/23 19:10 Dose: 30 ml Documented By: KATHIE Magnesium Oxide (Magnesium Oxide 400 Mg Tablet) 400 mg PO BIDPC [facility] Last Admin: 09/09/23 07:30 Dose: 400 mg Documented By: JASPAL Melatonin (Melatonin 3 Mg Tablet) 6 mg PO BEDTIME PRN PRN Reason: Insomnia Melatonin (Melatonin 3 Mg Tablet) 18 mg PO BEDTIME [facility] Last Admin: 09/08/23 21:48 Dose: 18 mg Documented By: LEDY Non-Formulary Medication (Bupropion Hcl) 100 mg PO DAILY [facility] Omeprazole (Omeprazole 20 Mg Capsule.Dr) 20 mg PO DAILY [facility] Last Admin: 09/09/23 07:29 Dose: 20 mg Documented By: JASPAL Ondansetron HCl (Ondansetron Hcl 4 Mg/2 Ml Vial) 4 mg IVPUSH QID PRN PRN Reason: Nausea Last Admin: 09/05/23 13:46 Dose: 4 mg Documented By: CAROL Oxycodone HCl (Oxycodone Hcl Immed Release 5 Mg Tablet) 10 mg PO Q6H PRN PRN Reason: Pain, Moderate(Pain Scale 4-6) Last Admin: 09/09/23 07:28 Dose: 10 mg Documented By: JASPAL Polyethylene Glycol (Polyethylene Glycol 3350 17 Gm Powd.Pack) 17 gm PO BID [facility] Last Admin: 09/09/23 07:27 Dose: 17 gm Documented By: JASPAL Pramipexole Dihydrochloride (Pramipexole Di-Hcl 0.25 Mg Tablet) 0.25 mg PO DAILY [facility] Last Admin: 09/08/23 07:48 Dose: 0.25 mg Documented By: JASPAL Sodium Biphosphate/Sodium Phosphate (Sodium Phosphate,[place]-Dibasic 133 Ml Enema) 133 ml [place] ONCE PRN PRN Reason: Constipation Last Admin: 09/07/23 09:01 Dose: 133 ml Documented By: RUPERTO Sodium Chloride (0.9 % Sodium Chloride Flush 3 Ml Syringe) 3 ml IVFLUSH QSHIFT [facility] Last Admin: 09/09/23 07:31 Dose: 3 ml Documented By: JASPAL Trazodone HCl (Trazodone Hcl 100 Mg Tablet) 300 mg PO BEDTIME [facility] Last Admin: 09/08/23 21:47 Dose: 300 mg Documented By: LEDY Vitamin D (Cholecalciferol (Vitamin D3) 25 Mcg Tablet) 50 mcg PO DAILY [facility] Last Admin: 09/09/23 07:28 Dose: 50 mcg Documented By: JASPAL Vortioxetine (Vortioxetine Hydrobromide 20 Mg Tablet) 20 mg PO DAILY [facility] Last Admin: 09/09/23 07:29 Dose: 20 mg Documented By: JASPAL Labs 09/08/23 05:43 09/08/23 05:43 Labs: Laboratory Results - last 24 hr 09/08/23 09/08/23 09/08/23 05:43 11:20 15:58 Hold Purple Top PT INR POC Glucose 110 89 Magnesium 2.1 09/08/23 09/09/23 09/09/23 20:25 05:40 07:43 Hold Purple Top SEE NOTE PT 14.3 H INR 1.2 H POC Glucose 78 81 Magnesium Assessment and Plan (1) Abdominal wall fluid collections: Status: Acute Assessment and Plan: 62/F with moderate persistent asthma, HTN, PE on Eliquis, ND-T2DM, rubs/leg syndrome, bipolar disorder, peripheral neuropathy, lumbar spondylolisthesis, GERD, history of polysubstance abuse in remission admitted to surgery service for abdominal 5 days post wound exploration with abdominal wall debridement of granulation tissue, iI&D of the abdominal wall abscess in the left upper quadrant for foreign body reaction of the abdominal wall following history of perforated marginal ulcer s/p Ruben patch. Med consult for a syncopal episode Syncope: work up negative, including tele monitoring, negative orthostatic hypoension, unremarkable echo with nl LV EF of 59%, CT head negative and no focal neuro findings. Syncopal episode likely relaetd to polypharmacy with oxycodone 5mg QID, 300 mg of trazodone, latuda, lyrica, gabapentin, lorazepam and clonazepam. Lyrica on hold, gabapentin reduced to 300 tid, stopped Ativan, clonapem at 1 mg bid and oxycodone changed to PRN rather than scheduled and no further issues. hypomagnesemia : repleted continue po magnesium abd wall collections : management per surgery. Has been treated with Vanco, levaquin, Flagyl and Diflucan--all stopped, no signs of active infection, wound mangement per surgery Abd pain, and history of ulcer--EGD today HTN BP ok, continue amlodipine, Lasix Type 2 DM--controlled, continue SSI, diabetic diet Restless legs/rubing leg syndrome--[employer] bipolar disorder continue Latuda, trazodone, Trintellix (vortioxetine), klonopin hx of pulm embolism : continue apixiban. GERD-PPI dispo:as per primary team Quality Stroke Does the patient have a stroke diagnosis?: No VTE Prior VTE?: No VTE Risk Level:: Surgical - moderate VTE Device Contraindication: N/A - Device Ordered VTE Drug Contraindication: N/A - Med Ordered
[2023-09-09] MEDS: Pramipexole Di-HCL 0.25 MG TABLET PO (09:42)
--- NOTE | 2023-09-09 10:55 | PM.PNGS ---
Subjective Subjective Date of Service: 09/09/23 Interval history: Patient with no new complaints this morning. Denies nausea. Did have a bowel movement yesterday. She is awaiting for endoscopy with Dr. Titus today. Physical Exam Vital Signs: Vital Signs: Last Vital Signs Temp 98.1 F 09/09/23 07:55 Pulse 63 09/09/23 08:28 Resp 18 09/09/23 08:28 BP 135/75 09/09/23 07:55 Pulse Ox 96 09/09/23 07:55 O2 Del Method Room Air 09/09/23 07:55 BMI result Body Mass Index 31.3 Const: General: no acute distress Nutritional Appearance: well nourished Orientation/consciousness: patient oriented x3 Resp: Effort & Inspection: normal respiratory effort GI: Other: Dressings changed abdominal wound. Depth of wound remains at 2.0 cm but the diameter seems to be decreasing significantly. Wounds repacked with quarter-inch Nu Gauze. Left upper quadrant trocar incision (from prior gastric bypass surgery) also opened with a Q-tip swab and packed with quarter-inch Nu Gauze. A small amount of purulence discharge was noted from this incision. Clean sterile dressings applied. Neuro: General: patient oriented x3 Objective Data Active Medications Acetaminophen/Butalbital/Caffeine (Butalb/Acetamin/Caff 50/325/40 Tablet) 1 tab PO Q6H PRN PRN Reason: Migraine Headache Albuterol Sulfate (Albuterol Sulfate 90 Mcg 8 Gm Inhaler) 2 puff INHALE Q6H PRN PRN Reason: Shortness Of Breath Amlodipine Besylate (Amlodipine Besylate 2.5 Mg Tablet) 2.5 mg PO DAILY [facility]; Protocol Last Admin: 09/09/23 07:29 Dose: 2.5 mg Documented By: JASPAL Apixaban (Apixaban 5 Mg Tablet) 5 mg PO BID [facility] Last Admin: 09/08/23 07:50 Dose: 5 mg Documented By: JASPAL Calcium Carbonate (Calcium Carbonate 750 Mg Tab.Chew) 750 mg PO Q4H PRN PRN Reason: Heartburn Clonazepam (Clonazepam 1 Mg Tablet) 1 mg PO DAILY [facility] Last Admin: 09/09/23 07:30 Dose: 1 mg Documented By: JASPAL Clonazepam (Clonazepam 1 Mg Tablet) 1 mg PO DAILY@2200 [facility] Last Admin: 09/08/23 21:48 Dose: 1 mg Documented By: LEDY Docusate Sodium (Docusate Sodium 100 Mg Capsule) 100 mg PO BID [facility] Last Admin: 09/09/23 07:29 Dose: 100 mg Documented By: JASPAL Fluticasone/Vilanterol (Fluticasone/Vilanterol 200/25 Blst.W.Dev) 1 puff INHALE RDAILY [facility] Last Admin: 09/09/23 08:26 Dose: 1 puff Documented By: BROOKS Furosemide (Furosemide 20 Mg Tablet) 20 mg PO DAILY [facility]; Protocol Last Admin: 09/09/23 07:30 Dose: 20 mg Documented By: JASPAL Gabapentin (Gabapentin 300 Mg Capsule) 300 mg PO TID [facility] Last Admin: 09/09/23 07:29 Dose: 300 mg Documented By: JASPAL Glucose (Glucose Gel 15 Gm Gel..Gram.) 15 gm PO Q15M PRN; Protocol PRN Reason: per Hypoglycemia Standing Ord. Hydromorphone HCl (Hydromorphone Hcl 0.5 Mg/0.5 Ml Syringe) 0.5 mg IVPUSH Q4H PRN; Protocol PRN Reason: Pain, Severe (Pain Scale 7-10) Last Admin: 09/08/23 18:03 Dose: 0.5 mg Documented By: JASPAL Dextrose (D10) 250 mls @ 750 mls/hr IV Q15M PRN; Protocol PRN Reason: per Hypoglycemia Standing Ord. Insulin Human Lispro (Insulin Lispro 100 Unit/Ml 3 Ml Vial) 0 unit SUBCUT QIDACHS [facility]; Protocol Last Admin: 09/09/23 07:47 Dose: Not Given Documented By: JASPAL Non-Admin Reason: No Insulin Coverage Lurasidone HCl (Lurasidone Hcl 40 Mg Tablet) 120 mg PO DAILY [facility] Last Admin: 09/09/23 07:28 Dose: 120 mg Documented By: JASPAL Magnesium Hydroxide (Milk Of Magnesia 30 Ml Oral.Susp) 30 ml PO DAILY PRN PRN Reason: Constipation Last Admin: 09/06/23 19:10 Dose: 30 ml Documented By: KATHIE Magnesium Oxide (Magnesium Oxide 400 Mg Tablet) 400 mg PO BIDPC [facility] Last Admin: 09/09/23 07:30 Dose: 400 mg Documented By: JASPAL Melatonin (Melatonin 3 Mg Tablet) 6 mg PO BEDTIME PRN PRN Reason: Insomnia Melatonin (Melatonin 3 Mg Tablet) 18 mg PO BEDTIME [facility] Last Admin: 09/08/23 21:48 Dose: 18 mg Documented By: LEDY Non-Formulary Medication (Bupropion Hcl) 100 mg PO DAILY [facility] Omeprazole (Omeprazole 20 Mg Capsule.Dr) 20 mg PO DAILY [facility] Last Admin: 09/09/23 07:29 Dose: 20 mg Documented By: JASPAL Ondansetron HCl (Ondansetron Hcl 4 Mg/2 Ml Vial) 4 mg IVPUSH QID PRN PRN Reason: Nausea Last Admin: 09/05/23 13:46 Dose: 4 mg Documented By: CAROL Oxycodone HCl (Oxycodone Hcl Immed Release 5 Mg Tablet) 10 mg PO Q6H PRN PRN Reason: Pain, Moderate(Pain Scale 4-6) Last Admin: 09/09/23 07:28 Dose: 10 mg Documented By: JASPAL Polyethylene Glycol (Polyethylene Glycol 3350 17 Gm Powd.Pack) 17 gm PO BID [facility] Last Admin: 09/09/23 07:27 Dose: 17 gm Documented By: JASPAL Pramipexole Dihydrochloride (Pramipexole Di-Hcl 0.25 Mg Tablet) 0.25 mg PO DAILY [facility] Last Admin: 09/09/23 09:42 Dose: 0.25 mg Documented By: JASPAL Sodium Biphosphate/Sodium Phosphate (Sodium Phosphate,[place]-Dibasic 133 Ml Enema) 133 ml [place] ONCE PRN PRN Reason: Constipation Last Admin: 09/07/23 09:01 Dose: 133 ml Documented By: RUPERTO Sodium Chloride (0.9 % Sodium Chloride Flush 3 Ml Syringe) 3 ml IVFLUSH QSHIFT [facility] Last Admin: 09/09/23 07:31 Dose: 3 ml Documented By: JASPAL Trazodone HCl (Trazodone Hcl 100 Mg Tablet) 300 mg PO BEDTIME [facility] Last Admin: 09/08/23 21:47 Dose: 300 mg Documented By: LEDY Vitamin D (Cholecalciferol (Vitamin D3) 25 Mcg Tablet) 50 mcg PO DAILY [facility] Last Admin: 09/09/23 07:28 Dose: 50 mcg Documented By: JASPAL Vortioxetine (Vortioxetine Hydrobromide 20 Mg Tablet) 20 mg PO DAILY [facility] Last Admin: 09/09/23 07:29 Dose: 20 mg Documented By: JASPAL Labs 09/08/23 05:43 09/08/23 05:43 Labs: Laboratory Results - last 24 hr 09/08/23 09/08/23 09/08/23 05:43 11:20 15:58 Hold Purple Top PT INR POC Glucose 110 89 Magnesium 2.1 09/08/23 09/09/23 09/09/23 20:25 05:40 07:43 Hold Purple Top SEE NOTE PT 14.3 H INR 1.2 H POC Glucose 78 81 Magnesium Procedures Date of Service Date of Service: 09/09/23 Progress Note: A&P Assessment and plan (1) Abdominal wall fluid collections: Status: Acute Plan Abdominal wounds are much improved with markedly decreased discharge, continues to be mainly serous output. Pocket is closing nicely now proximally 2 cm in length. The left upper quadrant trocar site was packed with Nu Gauze as well. No evidence of enterocutaneous fistula at this time. Continue local wound care Awaiting EGD today. Possible discharge in a.m.. Time Spent With Patient Time: Total time managing care of this patient today ____ minutes. Quality Stroke Does the patient have a stroke diagnosis?: No VTE Prior VTE?: No VTE Risk Level:: Surgical - moderate VTE Device Contraindication: N/A - Device Ordered VTE Drug Contraindication: N/A - Med Ordered
[2023-09-09 11:35] LABS: Glucose, Whole Blood 89 mg/dL (60-115)
--- NOTE | 2023-09-09 14:50 | HO.ANESPROP2 ---
HPI - Anesthesia Eval Consult details Narrative: egd PMFSH Active Problems Active Problems: All Active Problems Polypharmacy (Acute) Abdominal wall fluid collections (Acute) Acute hypokalemia (Acute) Hypomagnesemia (Acute) Abdominal pain (Acute) S/P lumbar fusion (Acute) Thoracic radiculopathy (Acute) Past Medical History Medical History Physical deconditioning Arthritis GERD (gastroesophageal reflux disease) Depression Polysubstance abuse Osteoarthritis Sleep apnea Elevated cholesterol Bipolar 1 disorder RLS (restless legs syndrome) Asthma HTN (hypertension) Pulmonary embolism Peripheral neuropathy Diabetes Spondylolisthesis, lumbar region Family History Family history of problems with anesthesia: No Surgical History Surgical History History of spinal surgery (05/31/23) History of Pamela-en-Y gastric bypass (~03/2023) Hx of exploratory laparotomy (06/03/23) H/O colonoscopy History of total right knee replacement Hx of tonsillectomy Hx of tubal ligation Hx of hysterectomy History of sleeve gastrectomy History of Problems with Anesthesia: No Social History Social History Household Members: Spouse Housing: Apartment Are you a primary weekend caregiver to a significant other at home: No Do you presently have visiting nurse or other home services: Yes Comment: aware of trip hazard Patient Tobacco Use Status: Never used Tobacco Smoked in Last 30 Days: No Patient Interested in Nicotine Replacement: No Patient Given Instructions on How to Stop Smoking: No Second Hand Smoke Exposure: No Use of substances other than those prescribed or required for medical reasons: No Currently Displaying Signs/Symptoms of Drug Intoxication Withdrawal: No Any prior treatment program specific to substance use: No Have you been hit, kicked, punched, or otherwise hurt by someone within the past year? If so, by whom?: No Do you feel safe in your current relationship?: Yes Is there a partner from a previous relationship who is making you feel unsafe now?: No Are you made to feel afraid or neglected: No Advance Directives: No Advance Directives Information Provided: Yes Advance Directives on File: No Do you have a plan to hurt others: No Plan Recently lost weight without trying: No Eating poorly because of decreased appetite: No Patient : No : No Poor oral hygiene: No service: No Meds Allergies Allergy/AdvReac Type Severity Reaction Status Date / Time cephalexin [From Keflex] Allergy Intermediate Swelling Verified 08/29/23 23:35 doxycycline Allergy Intermediate Hives Verified 08/29/23 23:35 glipizide Allergy Intermediate Rash Verified 08/29/23 23:35 metformin Allergy Intermediate Itching Verified 08/29/23 23:35 morphine Allergy Intermediate Nausea and Verified 08/29/23 23:35 Vomiting/ineffective ropinirole [From Requip] Allergy Intermediate Nausea and Verified 08/29/23 23:35 Vomiting CLARITZA Inhibitors AdvReac Intermediate Cough Verified 08/29/23 23:35 Active Medications: Current Medications Acetaminophen/Butalbital/Caffeine (Butalb/Acetamin/Caff 50/325/40 Tablet) 1 tab PO Q6H PRN PRN Reason: Migraine Headache Albuterol Sulfate (Albuterol Sulfate 90 Mcg 8 Gm Inhaler) 2 puff INHALE Q6H PRN PRN Reason: Shortness Of Breath Amlodipine Besylate (Amlodipine Besylate 2.5 Mg Tablet) 2.5 mg PO DAILY [facility]; Protocol Last Admin: 09/09/23 07:29 Dose: 2.5 mg Apixaban (Apixaban 5 Mg Tablet) 5 mg PO BID [facility] Last Admin: 09/08/23 07:50 Dose: 5 mg Calcium Carbonate (Calcium Carbonate 750 Mg Tab.Chew) 750 mg PO Q4H PRN PRN Reason: Heartburn Clonazepam (Clonazepam 1 Mg Tablet) 1 mg PO DAILY [facility] Last Admin: 09/09/23 07:30 Dose: 1 mg Clonazepam (Clonazepam 1 Mg Tablet) 1 mg PO DAILY@2200 [facility] Last Admin: 09/08/23 21:48 Dose: 1 mg Docusate Sodium (Docusate Sodium 100 Mg Capsule) 100 mg PO BID [facility] Last Admin: 09/09/23 07:29 Dose: 100 mg Fluticasone/Vilanterol (Fluticasone/Vilanterol 200/25 Blst.W.Dev) 1 puff INHALE RDAILY [facility] Last Admin: 09/09/23 08:26 Dose: 1 puff Furosemide (Furosemide 20 Mg Tablet) 20 mg PO DAILY [facility]; Protocol Last Admin: 09/09/23 07:30 Dose: 20 mg Gabapentin (Gabapentin 300 Mg Capsule) 300 mg PO TID [facility] Last Admin: 09/09/23 14:10 Dose: 300 mg Glucose (Glucose Gel 15 Gm Gel..Gram.) 15 gm PO Q15M PRN; Protocol PRN Reason: per Hypoglycemia Standing Ord. Hydromorphone HCl (Hydromorphone Hcl 0.5 Mg/0.5 Ml Syringe) 0.5 mg IVPUSH Q4H PRN; Protocol PRN Reason: Pain, Severe (Pain Scale 7-10) Last Admin: 09/08/23 18:03 Dose: 0.5 mg Dextrose (D10) 250 mls @ 750 mls/hr IV Q15M PRN; Protocol PRN Reason: per Hypoglycemia Standing Ord. Insulin Human Lispro (Insulin Lispro 100 Unit/Ml 3 Ml Vial) 0 unit SUBCUT QIDACHS [facility]; Protocol Last Admin: 09/09/23 11:44 Dose: Not Given Lurasidone HCl (Lurasidone Hcl 40 Mg Tablet) 120 mg PO DAILY [facility] Last Admin: 09/09/23 07:28 Dose: 120 mg Magnesium Hydroxide (Milk Of Magnesia 30 Ml Oral.Susp) 30 ml PO DAILY PRN PRN Reason: Constipation Last Admin: 09/06/23 19:10 Dose: 30 ml Magnesium Oxide (Magnesium Oxide 400 Mg Tablet) 400 mg PO BIDPC [facility] Last Admin: 09/09/23 07:30 Dose: 400 mg Melatonin (Melatonin 3 Mg Tablet) 6 mg PO BEDTIME PRN PRN Reason: Insomnia Melatonin (Melatonin 3 Mg Tablet) 18 mg PO BEDTIME [facility] Last Admin: 09/08/23 21:48 Dose: 18 mg Non-Formulary Medication (Bupropion Hcl) 100 mg PO DAILY [facility] Omeprazole (Omeprazole 20 Mg Capsule.Dr) 20 mg PO DAILY [facility] Last Admin: 09/09/23 07:29 Dose: 20 mg Ondansetron HCl (Ondansetron Hcl 4 Mg/2 Ml Vial) 4 mg IVPUSH QID PRN PRN Reason: Nausea Last Admin: 09/05/23 13:46 Dose: 4 mg Oxycodone HCl (Oxycodone Hcl Immed Release 5 Mg Tablet) 10 mg PO Q6H PRN PRN Reason: Pain, Moderate(Pain Scale 4-6) Last Admin: 09/09/23 14:10 Dose: 10 mg Polyethylene Glycol (Polyethylene Glycol 3350 17 Gm Powd.Pack) 17 gm PO BID [facility] Last Admin: 09/09/23 07:27 Dose: 17 gm Pramipexole Dihydrochloride (Pramipexole Di-Hcl 0.25 Mg Tablet) 0.25 mg PO DAILY [facility] Last Admin: 09/09/23 09:42 Dose: 0.25 mg Sodium Biphosphate/Sodium Phosphate (Sodium Phosphate,[place]-Dibasic 133 Ml Enema) 133 ml AL ONCE PRN PRN Reason: Constipation Last Admin: 09/07/23 09:01 Dose: 133 ml Sodium Chloride (0.9 % Sodium Chloride Flush 3 Ml Syringe) 3 ml IVFLUSH QSHIFT [facility] Last Admin: 09/09/23 07:31 Dose: 3 ml Trazodone HCl (Trazodone Hcl 100 Mg Tablet) 300 mg PO BEDTIME [facility] Last Admin: 09/08/23 21:47 Dose: 300 mg Vitamin D (Cholecalciferol (Vitamin D3) 25 Mcg Tablet) 50 mcg PO DAILY [facility] Last Admin: 09/09/23 07:28 Dose: 50 mcg Vortioxetine (Vortioxetine Hydrobromide 20 Mg Tablet) 20 mg PO DAILY [facility] Last Admin: 09/09/23 07:29 Dose: 20 mg Home Medications ?Medication ?Instructions ?Recorded ?Confirmed ?Last Taken ?Type albuterol sulfate 90 mcg/actuation 2 puff inhalation Q6H PRN 04/28/23 08/30/23 Unknown History aerosol inhaler (Ventolin HFA) Shortness Of Breath budesonide-formoterol HFA 160 2 puff inhalation BID 04/28/23 08/30/23 08/29/23 History mcg-4.5 mcg/actuation aerosol inhaler (Symbicort) bupropion HCl 100 mg tablet,12 hr 100 mg PO QAM 04/28/23 08/30/23 08/29/23 History sustained-release [id number] 1 tab PO Q6H PRN pain 04/28/23 08/30/23 Unknown History 50 mg-325 mg-40 mg tablet clonazepam 1 mg tablet 1 mg PO DAILY 04/28/23 08/30/23 08/29/23 History furosemide 40 mg tablet 20 mg PO DAILY 0308/30/23 08/29/23 History gabapentin 800 mg tablet 800 mg PO BID 04/28/23 08/30/23 08/29/23 History hydroxyzine HCl 10 mg tablet 10 mg PO DAILY PRN Anxiety 04/28/23 08/30/23 08/23/23 History lorazepam 1 mg tablet 1 mg PO BID 04/28/23 08/30/23 08/29/23 History metoprolol tartrate 25 mg tablet 25 mg PO DAILY 04/28/23 08/30/23 08/29/23 History pramipexole 0.25 mg tablet 0.25 mg PO DAILY 04/28/23 08/30/23 08/29/23 History trazodone 100 mg tablet 300 mg PO BEDTIME 04/28/23 08/30/23 08/29/23 History vortioxetine 20 mg tablet 20 mg PO DAILY 04/28/23 08/30/23 08/29/23 History (Trintellix) apixaban 5 mg tablet (Eliquis) 5 mg PO BID 07/22/23 08/30/23 08/29/23 History atorvastatin 40 mg tablet 40 mg PO DAILY 07/22/23 08/30/23 08/29/23 History amlodipine 5 mg tablet 5 mg PO DAILY 08/30/23 08/30/23 08/29/23 History cholecalciferol (vitamin D3) 50 50 mcg PO DAILY 08/30/23 08/30/23 08/29/23 History mcg (2,000 unit) capsule clonazepam 1 mg tablet 2 mg PO DAILY@1800 08/30/23 08/30/23 08/29/23 History lurasidone 120 mg tablet 120 mg PO DAILY 08/30/23 08/30/23 08/29/23 History melatonin 10 mg tablet 20 mg PO BEDTIME 08/30/23 08/30/23 08/29/23 History oxycodone-acetaminophen 5 mg-325 1 tab PO QID 08/30/23 08/30/23 08/29/23 History mg tablet pregabalin 200 mg capsule 200 mg PO BID 08/30/23 08/30/23 08/29/23 History Exam Height,Weight and Vital Signs: Height 5 ft 5 in Weight 85.2 kg Last Vital Signs Temp 98.2 F 09/09/23 11:34 Pulse 65 09/09/23 11:34 Resp 18 09/09/23 11:34 BP 117/64 09/09/23 11:34 Pulse Ox 92 09/09/23 11:34 O2 Del Method Room Air 09/09/23 11:34 Pertinent Lab Results Pertinent Lab Results: Laboratory Tests 08/30/23 08/30/23 08/30/23 00:00 00:02 00:20 WBC 6.2 RBC 3.28 L Hgb 9.5 L Hct 29.7 L MCV 90.5 MCH 29.0 MCHC 32.0 RDW 17.0 H Plt Count 210 MPV 12.0 Immature Gran % (Auto) 0.3 Neut % (Auto) 57.2 Lymph % (Auto) 31.4 [place] % (Auto) 6.6 Eos % (Auto) 4.2 H Baso % (Auto) 0.3 Lymph # (Auto) 2.0 [place] # (Auto) 0.4 Eos # (Auto) 0.3 Baso # (Auto) 0.0 Abs Immat Gran (auto) 0.02 Absolute Neuts (auto) 3.6 Absolute Nucleated RBC 0.000 Nucleated RBC % (auto) 0.0 Hold Purple Top PT INR Hold Blue Top SEE NOTE Sodium 149 H Potassium 3.1 L Chloride 115 H Carbon Dioxide 22 Anion Gap 15 BUN 7 L Creatinine 0.84 Estim Creat Clear Calc 74.2 Estimated GFR > 60 POC Glucose Random Glucose 138 H Lactic Acid 1.2 Calcium 8.0 L D Magnesium 1.4 L* Total Bilirubin 0.3 Direct Bilirubin 0.1 AST 9 ALT 7 Alkaline Phosphatase 52 Troponin I High Sens < 2.7 D C-Reactive Protein 0.91 H B-Natriuretic Peptide 79 Total Protein 5.2 L Albumin 2.8 L Lipase 15 Urine Color Urine Appearance Urine pH Ur Specific [place] Urine Protein Urine Glucose (UA) Urine Ketones Urine Blood Urine Nitrite Ur Leukocyte Esterase Urine RBC Urine WBC Ur Squamous Epith Cells Urine Bacteria Hyaline Casts Random Vancomycin Influenza Type A (PCR) NEGATIVE Influenza Type B (PCR) NEGATIVE RSV RNA Qual (PCR) NEGATIVE SARS-CoV-2 RNA (RT-PCR) NEGATIVE 08/30/23 08/30/23 08/30/23 01:40 04:34 16:07 WBC RBC Hgb Hct MCV MCH MCHC RDW Plt Count MPV Immature Gran % (Auto) Neut % (Auto) Lymph % (Auto) [place] % (Auto) Eos % (Auto) Baso % (Auto) Lymph # (Auto) [place] # (Auto) Eos # (Auto) Baso # (Auto) Abs Immat Gran (auto) Absolute Neuts (auto) Absolute Nucleated RBC Nucleated RBC % (auto) Hold Purple Top PT INR Hold Blue Top Sodium 147 H Potassium 3.3 Chloride 116 H Carbon Dioxide 23 Anion Gap 11 L BUN 6 L Creatinine 0.73 Estim Creat Clear Calc 85.4 Estimated GFR > 60 POC Glucose 84 Random Glucose 107 Lactic Acid Calcium 7.9 L Magnesium Total Bilirubin 0.3 Direct Bilirubin AST 10 ALT 7 Alkaline Phosphatase 48 Troponin I High Sens C-Reactive Protein B-Natriuretic Peptide Total Protein 4.8 L Albumin 2.5 L Lipase Urine Color Yellow Urine Appearance Clear Urine pH 5.5 Ur Specific [place] 1.025 Urine Protein Negative Urine Glucose (UA) Negative Urine Ketones Negative Urine Blood Negative Urine Nitrite Negative Ur Leukocyte Esterase Moderate (2+) H Urine RBC 0-2 Urine WBC 21-50 H Ur Squamous Epith Cells 0-2 Urine Bacteria None Seen Hyaline Casts 0-2 Random Vancomycin Influenza Type A (PCR) Influenza Type B (PCR) RSV RNA Qual (PCR) SARS-CoV-2 RNA (RT-PCR) 08/30/23 08/31/23 08/31/23 19:43 07:49 08:50 WBC RBC Hgb Hct MCV MCH MCHC RDW Plt Count MPV Immature Gran % (Auto) Neut % (Auto) Lymph % (Auto) [place] % (Auto) Eos % (Auto) Baso % (Auto) Lymph # (Auto) [place] # (Auto) Eos # (Auto) Baso # (Auto) Abs Immat Gran (auto) Absolute Neuts (auto) Absolute Nucleated RBC Nucleated RBC % (auto) Hold Purple Top PT INR Hold Blue Top Sodium Potassium Chloride Carbon Dioxide Anion Gap BUN Creatinine 0.68 Estim Creat Clear Calc 92.4 Estimated GFR > 60 POC Glucose 93 86 Random Glucose Lactic Acid Calcium Magnesium Total Bilirubin Direct Bilirubin AST ALT Alkaline Phosphatase Troponin I High Sens C-Reactive Protein B-Natriuretic Peptide Total Protein Albumin Lipase Urine Color Urine Appearance Urine pH Ur Specific [place] Urine Protein Urine Glucose (UA) Urine Ketones Urine Blood Urine Nitrite Ur Leukocyte Esterase Urine RBC Urine WBC Ur Squamous Epith Cells Urine Bacteria Hyaline Casts Random Vancomycin Influenza Type A (PCR) Influenza Type B (PCR) RSV RNA Qual (PCR) SARS-CoV-2 RNA (RT-PCR) 08/31/23 08/31/23 08/31/23 11:10 16:10 20:03 WBC RBC Hgb Hct MCV MCH MCHC RDW Plt Count MPV Immature Gran % (Auto) Neut % (Auto) Lymph % (Auto) [place] % (Auto) Eos % (Auto) Baso % (Auto) Lymph # (Auto) [place] # (Auto) Eos # (Auto) Baso # (Auto) Abs Immat Gran (auto) Absolute Neuts (auto) Absolute Nucleated RBC Nucleated RBC % (auto) Hold Purple Top PT INR Hold Blue Top Sodium Potassium Chloride Carbon Dioxide Anion Gap BUN Creatinine Estim Creat Clear Calc Estimated GFR POC Glucose 97 77 148 H Random Glucose Lactic Acid Calcium Magnesium Total Bilirubin Direct Bilirubin AST ALT Alkaline Phosphatase Troponin I High Sens C-Reactive Protein B-Natriuretic Peptide Total Protein Albumin Lipase Urine Color Urine Appearance Urine pH Ur Specific [place] Urine Protein Urine Glucose (UA) Urine Ketones Urine Blood Urine Nitrite Ur Leukocyte Esterase Urine RBC Urine WBC Ur Squamous Epith Cells Urine Bacteria Hyaline Casts Random Vancomycin Influenza Type A (PCR) Influenza Type B (PCR) RSV RNA Qual (PCR) SARS-CoV-2 RNA (RT-PCR) 09/01/23 09/01/23 09/01/23 05:24 07:13 11:22 WBC RBC Hgb Hct MCV MCH MCHC RDW Plt Count MPV Immature Gran % (Auto) Neut % (Auto) Lymph % (Auto) [place] % (Auto) Eos % (Auto) Baso % (Auto) Lymph # (Auto) [place] # (Auto) Eos # (Auto) Baso # (Auto) Abs Immat Gran (auto) Absolute Neuts (auto) Absolute Nucleated RBC Nucleated RBC % (auto) Hold Purple Top PT INR Hold Blue Top Sodium Potassium Chloride Carbon Dioxide Anion Gap BUN Creatinine 0.68 Estim Creat Clear Calc 92.4 Estimated GFR > 60 POC Glucose 81 89 Random Glucose Lactic Acid Calcium Magnesium Total Bilirubin Direct Bilirubin AST ALT Alkaline Phosphatase Troponin I High Sens C-Reactive Protein B-Natriuretic Peptide Total Protein Albumin Lipase Urine Color Urine Appearance Urine pH Ur Specific [place] Urine Protein Urine Glucose (UA) Urine Ketones Urine Blood Urine Nitrite Ur Leukocyte Esterase Urine RBC Urine WBC Ur Squamous Epith Cells Urine Bacteria Hyaline Casts Random Vancomycin Influenza Type A (PCR) Influenza Type B (PCR) RSV RNA Qual (PCR) SARS-CoV-2 RNA (RT-PCR) 09/01/23 09/01/23 09/01/23 15:23 15:55 19:49 WBC RBC Hgb Hct MCV MCH MCHC RDW Plt Count MPV Immature Gran % (Auto) Neut % (Auto) Lymph % (Auto) [place] % (Auto) Eos % (Auto) Baso % (Auto) Lymph # (Auto) [place] # (Auto) Eos # (Auto) Baso # (Auto) Abs Immat Gran (auto) Absolute Neuts (auto) Absolute Nucleated RBC Nucleated RBC % (auto) Hold Purple Top PT INR Hold Blue Top Sodium Potassium Chloride Carbon Dioxide Anion Gap BUN Creatinine Estim Creat Clear Calc Estimated GFR POC Glucose 75 97 Random Glucose Lactic Acid Calcium Magnesium Total Bilirubin Direct Bilirubin AST ALT Alkaline Phosphatase Troponin I High Sens C-Reactive Protein B-Natriuretic Peptide Total Protein Albumin Lipase Urine Color Urine Appearance Urine pH Ur Specific [place] Urine Protein Urine Glucose (UA) Urine Ketones Urine Blood Urine Nitrite Ur Leukocyte Esterase Urine RBC Urine WBC Ur Squamous Epith Cells Urine Bacteria Hyaline Casts Random Vancomycin 15.4 Influenza Type A (PCR) Influenza Type B (PCR) RSV RNA Qual (PCR) SARS-CoV-2 RNA (RT-PCR) 09/02/23 09/02/23 09/02/23 05:25 07:12 11:14 WBC RBC Hgb Hct MCV MCH MCHC RDW Plt Count MPV Immature Gran % (Auto) Neut % (Auto) Lymph % (Auto) [place] % (Auto) Eos % (Auto) Baso % (Auto) Lymph # (Auto) [place] # (Auto) Eos # (Auto) Baso # (Auto) Abs Immat Gran (auto) Absolute Neuts (auto) Absolute Nucleated RBC Nucleated RBC % (auto) Hold Purple Top PT INR Hold Blue Top Sodium Potassium Chloride Carbon Dioxide Anion Gap BUN Creatinine 0.70 Estim Creat Clear Calc 89.8 Estimated GFR > 60 POC Glucose 75 70 Random Glucose Lactic Acid Calcium Magnesium Total Bilirubin Direct Bilirubin AST ALT Alkaline Phosphatase Troponin I High Sens C-Reactive Protein B-Natriuretic Peptide Total Protein Albumin Lipase Urine Color Urine Appearance Urine pH Ur Specific [place] Urine Protein Urine Glucose (UA) Urine Ketones Urine Blood Urine Nitrite Ur Leukocyte Esterase Urine RBC Urine WBC Ur Squamous Epith Cells Urine Bacteria Hyaline Casts Random Vancomycin Influenza Type A (PCR) Influenza Type B (PCR) RSV RNA Qual (PCR) SARS-CoV-2 RNA (RT-PCR) 09/02/23 09/02/23 09/02/23 15:10 16:04 20:03 WBC RBC Hgb Hct MCV MCH MCHC RDW Plt Count MPV Immature Gran % (Auto) Neut % (Auto) Lymph % (Auto) [place] % (Auto) Eos % (Auto) Baso % (Auto) Lymph # (Auto) [place] # (Auto) Eos # (Auto) Baso # (Auto) Abs Immat Gran (auto) Absolute Neuts (auto) Absolute Nucleated RBC Nucleated RBC % (auto) Hold Purple Top PT INR Hold Blue Top Sodium Potassium Chloride Carbon Dioxide Anion Gap BUN Creatinine Estim Creat Clear Calc Estimated GFR POC Glucose 86 125 H Random Glucose Lactic Acid Calcium Magnesium Total Bilirubin Direct Bilirubin AST ALT Alkaline Phosphatase Troponin I High Sens C-Reactive Protein B-Natriuretic Peptide Total Protein Albumin Lipase Urine Color Urine Appearance Urine pH Ur Specific [place] Urine Protein Urine Glucose (UA) Urine Ketones Urine Blood Urine Nitrite Ur Leukocyte Esterase Urine RBC Urine WBC Ur Squamous Epith Cells Urine Bacteria Hyaline Casts Random Vancomycin 16.2 Influenza Type A (PCR) Influenza Type B (PCR) RSV RNA Qual (PCR) SARS-CoV-2 RNA (RT-PCR) 09/03/23 09/03/23 09/03/23 05:50 07:17 11:25 WBC RBC Hgb Hct MCV MCH MCHC RDW Plt Count MPV Immature Gran % (Auto) Neut % (Auto) Lymph % (Auto) [place] % (Auto) Eos % (Auto) Baso % (Auto) Lymph # (Auto) [place] # (Auto) Eos # (Auto) Baso # (Auto) Abs Immat Gran (auto) Absolute Neuts (auto) Absolute Nucleated RBC Nucleated RBC % (auto) Hold Purple Top SEE NOTE PT INR Hold Blue Top Sodium Potassium Chloride Carbon Dioxide Anion Gap BUN Creatinine 0.71 Estim Creat Clear Calc 87.4 Estimated GFR > 60 POC Glucose 81 82 Random Glucose Lactic Acid Calcium Magnesium Total Bilirubin Direct Bilirubin AST ALT Alkaline Phosphatase Troponin I High Sens C-Reactive Protein B-Natriuretic Peptide Total Protein Albumin Lipase Urine Color Urine Appearance Urine pH Ur Specific [place] Urine Protein Urine Glucose (UA) Urine Ketones Urine Blood Urine Nitrite Ur Leukocyte Esterase Urine RBC Urine WBC Ur Squamous Epith Cells Urine Bacteria Hyaline Casts Random Vancomycin Influenza Type A (PCR) Influenza Type B (PCR) RSV RNA Qual (PCR) SARS-CoV-2 RNA (RT-PCR) 09/03/23 09/03/23 09/04/23 16:01 19:59 06:58 WBC RBC Hgb Hct MCV MCH MCHC RDW Plt Count MPV Immature Gran % (Auto) Neut % (Auto) Lymph % (Auto) [place] % (Auto) Eos % (Auto) Baso % (Auto) Lymph # (Auto) [place] # (Auto) Eos # (Auto) Baso # (Auto) Abs Immat Gran (auto) Absolute Neuts (auto) Absolute Nucleated RBC Nucleated RBC % (auto) Hold Purple Top PT INR Hold Blue Top Sodium Potassium Chloride Carbon Dioxide Anion Gap BUN Creatinine Estim Creat Clear Calc Estimated GFR POC Glucose 101 123 H 87 Random Glucose Lactic Acid Calcium Magnesium Total Bilirubin Direct Bilirubin AST ALT Alkaline Phosphatase Troponin I High Sens C-Reactive Protein B-Natriuretic Peptide Total Protein Albumin Lipase Urine Color Urine Appearance Urine pH Ur Specific [place] Urine Protein Urine Glucose (UA) Urine Ketones Urine Blood Urine Nitrite Ur Leukocyte Esterase Urine RBC Urine WBC Ur Squamous Epith Cells Urine Bacteria Hyaline Casts Random Vancomycin Influenza Type A (PCR) Influenza Type B (PCR) RSV RNA Qual (PCR) SARS-CoV-2 RNA (RT-PCR) 09/04/23 09/04/23 09/04/23 11:37 16:04 20:26 WBC RBC Hgb Hct MCV MCH MCHC RDW Plt Count MPV Immature Gran % (Auto) Neut % (Auto) Lymph % (Auto) [place] % (Auto) Eos % (Auto) Baso % (Auto) Lymph # (Auto) [place] # (Auto) Eos # (Auto) Baso # (Auto) Abs Immat Gran (auto) Absolute Neuts (auto) Absolute Nucleated RBC Nucleated RBC % (auto) Hold Purple Top PT INR Hold Blue Top Sodium Potassium Chloride Carbon Dioxide Anion Gap BUN Creatinine Estim Creat Clear Calc Estimated GFR POC Glucose 101 82 103 Random Glucose Lactic Acid Calcium Magnesium Total Bilirubin Direct Bilirubin AST ALT Alkaline Phosphatase Troponin I High Sens C-Reactive Protein B-Natriuretic Peptide Total Protein Albumin Lipase Urine Color Urine Appearance Urine pH Ur Specific [place] Urine Protein Urine Glucose (UA) Urine Ketones Urine Blood Urine Nitrite Ur Leukocyte Esterase Urine RBC Urine WBC Ur Squamous Epith Cells Urine Bacteria Hyaline Casts Random Vancomycin Influenza Type A (PCR) Influenza Type B (PCR) RSV RNA Qual (PCR) SARS-CoV-2 RNA (RT-PCR) 09/05/23 09/05/23 09/05/23 07:11 11:33 16:10 WBC RBC Hgb Hct MCV MCH MCHC RDW Plt Count MPV Immature Gran % (Auto) Neut % (Auto) Lymph % (Auto) [place] % (Auto) Eos % (Auto) Baso % (Auto) Lymph # (Auto) [place] # (Auto) Eos # (Auto) Baso # (Auto) Abs Immat Gran (auto) Absolute Neuts (auto) Absolute Nucleated RBC Nucleated RBC % (auto) Hold Purple Top PT INR Hold Blue Top Sodium Potassium Chloride Carbon Dioxide Anion Gap BUN Creatinine Estim Creat Clear Calc Estimated GFR POC Glucose 77 93 101 Random Glucose Lactic Acid Calcium Magnesium Total Bilirubin Direct Bilirubin AST ALT Alkaline Phosphatase Troponin I High Sens C-Reactive Protein B-Natriuretic Peptide Total Protein Albumin Lipase Urine Color Urine Appearance Urine pH Ur Specific [place] Urine Protein Urine Glucose (UA) Urine Ketones Urine Blood Urine Nitrite Ur Leukocyte Esterase Urine RBC Urine WBC Ur Squamous Epith Cells Urine Bacteria Hyaline Casts Random Vancomycin Influenza Type A (PCR) Influenza Type B (PCR) RSV RNA Qual (PCR) SARS-CoV-2 RNA (RT-PCR) 09/05/23 09/06/23 09/06/23 20:31 07:17 11:22 WBC RBC Hgb Hct MCV MCH MCHC RDW Plt Count MPV Immature Gran % (Auto) Neut % (Auto) Lymph % (Auto) [place] % (Auto) Eos % (Auto) Baso % (Auto) Lymph # (Auto) [place] # (Auto) Eos # (Auto) Baso # (Auto) Abs Immat Gran (auto) Absolute Neuts (auto) Absolute Nucleated RBC Nucleated RBC % (auto) Hold Purple Top PT INR Hold Blue Top Sodium Potassium Chloride Carbon Dioxide Anion Gap BUN Creatinine Estim Creat Clear Calc Estimated GFR POC Glucose 96 80 78 Random Glucose Lactic Acid Calcium Magnesium Total Bilirubin Direct Bilirubin AST ALT Alkaline Phosphatase Troponin I High Sens C-Reactive Protein B-Natriuretic Peptide Total Protein Albumin Lipase Urine Color Urine Appearance Urine pH Ur Specific [place] Urine Protein Urine Glucose (UA) Urine Ketones Urine Blood Urine Nitrite Ur Leukocyte Esterase Urine RBC Urine WBC Ur Squamous Epith Cells Urine Bacteria Hyaline Casts Random Vancomycin Influenza Type A (PCR) Influenza Type B (PCR) RSV RNA Qual (PCR) SARS-CoV-2 RNA (RT-PCR) 09/06/23 09/06/23 09/07/23 16:17 20:25 07:23 WBC RBC Hgb Hct MCV MCH MCHC RDW Plt Count MPV Immature Gran % (Auto) Neut % (Auto) Lymph % (Auto) [place] % (Auto) Eos % (Auto) Baso % (Auto) Lymph # (Auto) [place] # (Auto) Eos # (Auto) Baso # (Auto) Abs Immat Gran (auto) Absolute Neuts (auto) Absolute Nucleated RBC Nucleated RBC % (auto) Hold Purple Top PT INR Hold Blue Top Sodium Potassium Chloride Carbon Dioxide Anion Gap BUN Creatinine Estim Creat Clear Calc Estimated GFR POC Glucose 83 109 90 Random Glucose Lactic Acid Calcium Magnesium Total Bilirubin Direct Bilirubin AST ALT Alkaline Phosphatase Troponin I High Sens C-Reactive Protein B-Natriuretic Peptide Total Protein Albumin Lipase Urine Color Urine Appearance Urine pH Ur Specific [place] Urine Protein Urine Glucose (UA) Urine Ketones Urine Blood Urine Nitrite Ur Leukocyte Esterase Urine RBC Urine WBC Ur Squamous Epith Cells Urine Bacteria Hyaline Casts Random Vancomycin Influenza Type A (PCR) Influenza Type B (PCR) RSV RNA Qual (PCR) SARS-CoV-2 RNA (RT-PCR) 09/07/23 09/07/23 09/07/23 11:33 16:15 20:06 WBC RBC Hgb Hct MCV MCH MCHC RDW Plt Count MPV Immature Gran % (Auto) Neut % (Auto) Lymph % (Auto) [place] % (Auto) Eos % (Auto) Baso % (Auto) Lymph # (Auto) [place] # (Auto) Eos # (Auto) Baso # (Auto) Abs Immat Gran (auto) Absolute Neuts (auto) Absolute Nucleated RBC Nucleated RBC % (auto) Hold Purple Top PT INR Hold Blue Top Sodium Potassium Chloride Carbon Dioxide Anion Gap BUN Creatinine Estim Creat Clear Calc Estimated GFR POC Glucose 82 100 99 Random Glucose Lactic Acid Calcium Magnesium Total Bilirubin Direct Bilirubin AST ALT Alkaline Phosphatase Troponin I High Sens C-Reactive Protein B-Natriuretic Peptide Total Protein Albumin Lipase Urine Color Urine Appearance Urine pH Ur Specific [place] Urine Protein Urine Glucose (UA) Urine Ketones Urine Blood Urine Nitrite Ur Leukocyte Esterase Urine RBC Urine WBC Ur Squamous Epith Cells Urine Bacteria Hyaline Casts Random Vancomycin Influenza Type A (PCR) Influenza Type B (PCR) RSV RNA Qual (PCR) SARS-CoV-2 RNA (RT-PCR) 09/08/23 09/08/23 09/08/23 05:43 07:34 11:20 WBC 6.5 RBC 3.41 L Hgb 10.2 L Hct 32.0 L MCV 93.8 MCH 29.9 MCHC 31.9 RDW 16.5 H Plt Count 156 L D MPV 11.7 Immature Gran % (Auto) 0.3 Neut % (Auto) 55.9 Lymph % (Auto) 27.2 [place] % (Auto) 9.3 Eos % (Auto) 6.5 H Baso % (Auto) 0.8 Lymph # (Auto) 1.8 [place] # (Auto) 0.6 Eos # (Auto) 0.4 Baso # (Auto) 0.1 Abs Immat Gran (auto) 0.02 Absolute Neuts (auto) 3.6 Absolute Nucleated RBC 0.000 Nucleated RBC % (auto) 0.0 Hold Purple Top PT INR Hold Blue Top Sodium 142 Potassium 4.0 D Chloride 103 Carbon Dioxide 33 H Anion Gap 10 L BUN 4 L Creatinine 0.83 Estim Creat Clear Calc 74.7 Estimated GFR > 60 POC Glucose 84 110 Random Glucose 92 Lactic Acid Calcium 9.3 D Magnesium 2.1 Total Bilirubin Direct Bilirubin AST ALT Alkaline Phosphatase Troponin I High Sens C-Reactive Protein B-Natriuretic Peptide Total Protein Albumin Lipase Urine Color Urine Appearance Urine pH Ur Specific [place] Urine Protein Urine Glucose (UA) Urine Ketones Urine Blood Urine Nitrite Ur Leukocyte Esterase Urine RBC Urine WBC Ur Squamous Epith Cells Urine Bacteria Hyaline Casts Random Vancomycin Influenza Type A (PCR) Influenza Type B (PCR) RSV RNA Qual (PCR) SARS-CoV-2 RNA (RT-PCR) 09/08/23 09/08/23 09/09/23 15:58 20:25 05:40 WBC RBC Hgb Hct MCV MCH MCHC RDW Plt Count MPV Immature Gran % (Auto) Neut % (Auto) Lymph % (Auto) [place] % (Auto) Eos % (Auto) Baso % (Auto) Lymph # (Auto) [place] # (Auto) Eos # (Auto) Baso # (Auto) Abs Immat Gran (auto) Absolute Neuts (auto) Absolute Nucleated RBC Nucleated RBC % (auto) Hold Purple Top SEE NOTE PT 14.3 H INR 1.2 H Hold Blue Top Sodium Potassium Chloride Carbon Dioxide Anion Gap BUN Creatinine Estim Creat Clear Calc Estimated GFR POC Glucose 89 78 Random Glucose Lactic Acid Calcium Magnesium Total Bilirubin Direct Bilirubin AST ALT Alkaline Phosphatase Troponin I High Sens C-Reactive Protein B-Natriuretic Peptide Total Protein Albumin Lipase Urine Color Urine Appearance Urine pH Ur Specific [place] Urine Protein Urine Glucose (UA) Urine Ketones Urine Blood Urine Nitrite Ur Leukocyte Esterase Urine RBC Urine WBC Ur Squamous Epith Cells Urine Bacteria Hyaline Casts Random Vancomycin Influenza Type A (PCR) Influenza Type B (PCR) RSV RNA Qual (PCR) SARS-CoV-2 RNA (RT-PCR) 09/09/23 09/09/23 07:43 11:29 WBC RBC Hgb Hct MCV MCH MCHC RDW Plt Count MPV Immature Gran % (Auto) Neut % (Auto) Lymph % (Auto) [place] % (Auto) Eos % (Auto) Baso % (Auto) Lymph # (Auto) [place] # (Auto) Eos # (Auto) Baso # (Auto) Abs Immat Gran (auto) Absolute Neuts (auto) Absolute Nucleated RBC Nucleated RBC % (auto) Hold Purple Top PT INR Hold Blue Top Sodium Potassium Chloride Carbon Dioxide Anion Gap BUN Creatinine Estim Creat Clear Calc Estimated GFR POC Glucose 81 89 Random Glucose Lactic Acid Calcium Magnesium Total Bilirubin Direct Bilirubin AST ALT Alkaline Phosphatase Troponin I High Sens C-Reactive Protein B-Natriuretic Peptide Total Protein Albumin Lipase Urine Color Urine Appearance Urine pH Ur Specific [place] Urine Protein Urine Glucose (UA) Urine Ketones Urine Blood Urine Nitrite Ur Leukocyte Esterase Urine RBC Urine WBC Ur Squamous Epith Cells Urine Bacteria Hyaline Casts Random Vancomycin Influenza Type A (PCR) Influenza Type B (PCR) RSV RNA Qual (PCR) SARS-CoV-2 RNA (RT-PCR) Airway Mallampati Class: II TM Dist: >3cm Neck ROM: Limited Heart: rrr Assessment and Plan Assessment Anesthesia Assessment: Anesthesia Plan Discussed Final Anesthetic Review Family History of Problems with Anesthesia: No History of Problems with Anesthesia: No NPO: Yes ASA Class: III Final Preanesthetic Review: No Changes in Pt Med Stat, Meds/Allgs Chart Reviewed, Consent Obtained/Reviewed and Anes Risks/Benef Reviewed Patient Risk: Intermediate Procedure Risk: Low Anesthetic Plan Anesthetic Plan: MAC: Disposition: Standard PACU
--- NOTE | 2023-09-09 15:58 | PM.OP ---
Brief Operative Note Date of Service: 09/09/23 Pre-op diagnosis: anastomotic ulcer Post-op diagnosis: same Procedure: EGD Surgeon: Lobo Titus MD Anesthesia: MAC Was an Low Pressure Firer used for this Procedure?: No Estimated blood loss (mL): 2 Pathology: other Condition: stable Disposition: PACU
--- NOTE | 2023-09-09 16:07 | PM.EVENT ---
Event Note Date of Service: 09/09/23 Event Note: Endoscopy note dictated Endoscopy shows no anastomotic ulcer gastrojejunal anastomosis is widely patent 4-5 cm gastric remnant, biopsied. Advance diet f/u bx results. Time Spent With Patient Time: Total time managing care of this patient today ____ minutes.
[2023-09-09 16:45] LABS: Glucose, Whole Blood 106 mg/dL (60-115)
[2023-09-09 20:05] LABS: Glucose, Whole Blood 207 mg/dL (60-115)
[2023-09-09] MEDS: traZODone HCL 100 MG TABLET 300 MG PO (21:37)
[2023-09-09] MEDS: Insulin Lispro 100 UNIT/ML 3 ML VIAL SUBCUT (21:38)
[2023-09-09] MEDS: Melatonin 3 MG TABLET 18 MG PO (21:38)
[2023-09-10 03:39] VITALS: BP 155/75; PULSE 67; RESP 18; TEMP 36.5; O2SAT 94
[2023-09-10] MEDS: oxyCODONE HCl Immed Release 5 MG TABLET 10 MG PO ×2 (04:00→09:51)
[2023-09-10 07:19] VITALS: BP 108/65; PULSE 60; RESP 12; TEMP 36.6; O2SAT 94
[2023-09-10 07:25] LABS: Glucose, Whole Blood 137 mg/dL (60-115)
--- NOTE | 2023-09-10 08:13 | P.F2F_ITS ---
Service Date Service Date: 09/10/23 Encounter Date of encounter: 09/10/23 Encounter: Dressings changed to abdominal wall. Wounds repacked with quarter-inch Nu Gauze and covered with dry sterile dressings wound depth is 1.5 cm. Clean dressings of 4 x 4 gauze applied with paper tape. Reasons for Services Signs and symptoms assessed: Abdominal wounds, vital signs Reason for custodial: wound care and medication management Homebound: Leaving the home is medically contraindicated at this time without the asist of a device and/or another person due th the listed conditions above and below. Reason homebound: unsteady gait / fall risk and weakness related to hospital stay Homebound supporting statement: patient weakened due to a prolonged hospital stay with unsteady gait Certification: Based on the above findings, I certify that this patient is confined to the home and needs intermittent custodial care, physical therapy and/or speech therapy, or continues to need occupational therapy. The patient is under my care, and I have initiated the establishment of the plan of care. The patient will be followed by a physician who will periodically review the plan of care. Time Spent With Patient Time: Total time managing care of this patient today ____ minutes.
--- NOTE | 2023-09-10 08:16 | P.PNGS_ITS ---
Subjective Subjective Date of Service: 09/10/23 Interval history: patient feels improved this morning with mild abdominal pain. She feels ready for discharge to home. Results of endoscopy discussed with patient. Physical Exam 2 Vital Signs: Vital Signs: Last Vital Signs Temp 97.8 F 09/10/23 07:19 Pulse 60 09/10/23 07:19 Resp 12 09/10/23 07:19 BP 108/65 09/10/23 07:19 Pulse Ox 94 09/10/23 07:19 O2 Del Method Room Air 09/10/23 07:19 O2 Flow Rate 3 09/09/23 16:15 BMI result Body Mass Index 31.3 Const: General: no acute distress Nutritional Appearance: well nourished Orientation/consciousness: patient oriented x3 Resp: Effort & Inspection: normal respiratory effort GI: Other: Dressings changed and minimal discharge noted on dressing. Wounds repacked. Packing depth now 1.5 cm. Wounds lightly packed with quarter-inch Gauze. Dry sterile dressings applied. Dry sterile dressing placed on left upper quadrant trocar site. Minimal discharge noted from this. Neuro: General: patient oriented x3 Objective Data Active Medications Acetaminophen/Butalbital/Caffeine (Butalb/Acetamin/Caff 50/325/40 Tablet) 1 tab PO Q6H PRN PRN Reason: Migraine Headache Albuterol Sulfate (Albuterol Sulfate 90 Mcg 8 Gm Inhaler) 2 puff INHALE Q6H PRN PRN Reason: Shortness Of Breath Amlodipine Besylate (Amlodipine Besylate 2.5 Mg Tablet) 2.5 mg PO DAILY [facility]; Protocol Last Admin: 09/09/23 07:29 Dose: 2.5 mg Documented By: JASPAL Apixaban (Apixaban 5 Mg Tablet) 5 mg PO BID [facility] Last Admin: 09/08/23 07:50 Dose: 5 mg Documented By: JASPAL Calcium Carbonate (Calcium Carbonate 750 Mg Tab.Chew) 750 mg PO Q4H PRN PRN Reason: Heartburn Clonazepam (Clonazepam 1 Mg Tablet) 1 mg PO DAILY [facility] Last Admin: 09/09/23 07:30 Dose: 1 mg Documented By: JASPAL Clonazepam (Clonazepam 1 Mg Tablet) 1 mg PO DAILY@2200 [facility] Last Admin: 08/01/24 21:37 Dose: 1 mg Documented By: LEDY Docusate Sodium (Docusate Sodium 100 Mg Capsule) 100 mg PO BID [facility] Last Admin: 09/09/23 21:37 Dose: 100 mg Documented By: LEDY Fluticasone/Vilanterol (Fluticasone/Vilanterol 200/25 Blst.W.Dev) 1 puff INHALE RDAILY [facility] Last Admin: 09/10/23 08:11 Dose: Not Given Documented By: BROOKS Non-Admin Reason: Patient Refused Furosemide (Furosemide 20 Mg Tablet) 20 mg PO DAILY [facility]; Protocol Last Admin: 09/09/23 07:30 Dose: 20 mg Documented By: JASPAL Gabapentin (Gabapentin 300 Mg Capsule) 300 mg PO TID [facility] Last Admin: 09/09/23 21:37 Dose: 300 mg Documented By: LEDY Glucose (Glucose Gel 15 Gm Gel..Gram.) 15 gm PO Q15M PRN; Protocol PRN Reason: per Hypoglycemia Standing Ord. Hydromorphone HCl (Hydromorphone Hcl 0.5 Mg/0.5 Ml Syringe) 0.5 mg IVPUSH Q4H PRN; Protocol PRN Reason: Pain, Severe (Pain Scale 7-10) Last Admin: 09/08/23 18:03 Dose: 0.5 mg Documented By: JASPAL Dextrose (D10) 250 mls @ 750 mls/hr IV Q15M PRN; Protocol PRN Reason: per Hypoglycemia Standing Ord. Insulin Human Lispro (Insulin Lispro 100 Unit/Ml 3 Ml Vial) 0 unit SUBCUT QIDACHS [facility]; Protocol Last Admin: 09/10/23 07:25 Dose: Not Given Documented By: JOAN Non-Admin Reason: No Insulin Coverage Lurasidone HCl (Lurasidone Hcl 40 Mg Tablet) 120 mg PO DAILY [facility] Last Admin: 09/09/23 07:28 Dose: 120 mg Documented By: JASPAL Magnesium Hydroxide (Milk Of Magnesia 30 Ml Oral.Susp) 30 ml PO DAILY PRN PRN Reason: Constipation Last Admin: 09/06/23 19:10 Dose: 30 ml Documented By: KATHIE Magnesium Oxide (Magnesium Oxide 400 Mg Tablet) 400 mg PO BIDPC [facility] Last Admin: 09/09/23 17:12 Dose: 400 mg Documented By: JASPAL Melatonin (Melatonin 3 Mg Tablet) 6 mg PO BEDTIME PRN PRN Reason: Insomnia Melatonin (Melatonin 3 Mg Tablet) 18 mg PO BEDTIME [facility] Last Admin: 09/09/23 21:38 Dose: 18 mg Documented By: LEDY Non-Formulary Medication (Bupropion Hcl) 100 mg PO DAILY [facility] Omeprazole (Omeprazole 20 Mg Capsule.Dr) 20 mg PO DAILY [facility] Last Admin: 09/09/23 07:29 Dose: 20 mg Documented By: JASPAL Ondansetron HCl (Ondansetron Hcl 4 Mg/2 Ml Vial) 4 mg IVPUSH QID PRN PRN Reason: Nausea Last Admin: 09/05/23 13:46 Dose: 4 mg Documented By: CAROL Oxycodone HCl (Oxycodone Hcl Immed Release 5 Mg Tablet) 10 mg PO Q6H PRN PRN Reason: Pain, Moderate(Pain Scale 4-6) Last Admin: 09/10/23 04:00 Dose: 10 mg Documented By: LEDY Polyethylene Glycol (Polyethylene Glycol 3350 17 Gm Powd.Pack) 17 gm PO BID [facility] Last Admin: 09/09/23 21:39 Dose: Not Given Documented By: LEDY Non-Admin Reason: Patient Refused Pramipexole Dihydrochloride (Pramipexole Di-Hcl 0.25 Mg Tablet) 0.25 mg PO DAILY [facility] Last Admin: 09/09/23 09:42 Dose: 0.25 mg Documented By: JASPAL Sodium Biphosphate/Sodium Phosphate (Sodium Phosphate,[place]-Dibasic 133 Ml Enema) 133 ml [place] ONCE PRN PRN Reason: Constipation Last Admin: 09/07/23 09:01 Dose: 133 ml Documented By: RUPERTO Sodium Chloride (0.9 % Sodium Chloride Flush 3 Ml Syringe) [facility] Last Admin: 09/09/23 22:05 Dose: 3 ml Documented By: LEDY Trazodone HCl (Trazodone Hcl 100 Mg Tablet) 300 mg PO BEDTIME [facility] Last Admin: 09/09/23 21:37 Dose: 300 mg Documented By: LEDY Vitamin D (Cholecalciferol (Vitamin D3) 25 Mcg Tablet) 50 mcg PO DAILY [facility] Last Admin: 09/09/23 07:28 Dose: 50 mcg Documented By: JASPAL Vortioxetine (Vortioxetine Hydrobromide 20 Mg Tablet) 20 mg PO DAILY [facility] Last Admin: 09/09/23 07:29 Dose: 20 mg Documented By: JASPAL Labs 09/08/23 05:43 09/08/23 05:43 Labs: Laboratory Results - last 24 hr 09/09/23 09/09/23 09/09/23 11:29 16:39 20:01 POC Glucose 89 106 207 H 09/10/23 07:17 POC Glucose 137 H Procedures Date of Service Date of Service: 09/10/23 Progress Note: A&P Assessment and plan (1) Abdominal wall fluid collections: Status: Acute Plan All patient now much improved with wound is closing nicely. She will need continued wound care with dry sterile dressings applied. She will need VNA for wound packing QOD with Daily dry sterile 4x4 gauze and paper tape over wound She will return to the office in one week Time Spent With Patient Time: Total time managing care of this patient today ____ minutes. Quality Stroke Does the patient have a stroke diagnosis?: No VTE Prior VTE?: No VTE Risk Level:: Surgical - moderate VTE Device Contraindication: N/A - Device Ordered VTE Drug Contraindication: N/A - Med Ordered
--- NOTE | 2023-09-10 09:01 | MHC.CM.PN ---
Pt is medically cleared for discharge home with resumption of [facility] services, pts spouse will transport her home.
--- NOTE | 2023-09-10 09:15 | OP_ITS ---
DATE OF SERVICE: 09/09/2023 SURGEON: Lobo Titus MD INDICATIONS: Abdominal pain and history of anastomotic ulcer with perforation. PREOPERATIVE DIAGNOSIS: POSTOPERATIVE DIAGNOSIS: PROCEDURE PERFORMED: Upper endoscopy with biopsy. ESTIMATED BLOOD LOSS: COMPLICATIONS: ANESTHESIA: Monitored anesthesia care. ASSISTANTS: SPECIMENS: DESCRIPTION OF PROCEDURE: A history and physical was performed. The risks and benefits of the procedure were explained to the patient and informed consent was obtained. The patient was placed in the left lateral decubitus position. The Olympus video gastroscope was introduced into the esophagus, stomach, and jejunum. Examination was performed and the scope was removed. She tolerated the procedure well and was returned to recovery area in stable condition. FINDINGS: Esophagus: The esophagus was normal. There was no esophagitis. 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 This measured approximately 5 cm and was patent with no ulceration. Biopsies were obtained from the gastric remnant. There was a gastrojejunal Pamela anastomosis. This was widely patent without any evidence of anastomotic ulceration. The limb was explored for approximately 20 cm with no abnormal findings. IMPRESSION: Normal upper endoscopy, status post laparoscopic Pamela-en-Y anastomosis. RECOMMENDATION: Follow up the biopsy results. MD YU Ovalle/SISL / [id number]
[2023-09-10] MEDS: Cholecalciferol (Vitamin D3) 25 MCG TABLET 50 MCG PO (09:46)
[2023-09-10] MEDS: Furosemide 20 MG TABLET PO (09:46)
[2023-09-10] MEDS: clonazePAM 1 MG TABLET PO (09:46)
[2023-09-10] MEDS: Vortioxetine Hydrobromide 20 MG TABLET PO (09:46)
[2023-09-10] MEDS: Apixaban 5 MG TABLET PO (09:46)
[2023-09-10] MEDS: Gabapentin 300 MG CAPSULE PO (09:46)
[2023-09-10] MEDS: amLODIPine Besylate 2.5 MG TABLET PO (09:46)
[2023-09-10] MEDS: Omeprazole 20 MG CAPSULE.DR PO (09:46)
[2023-09-10] MEDS: Docusate Sodium 100 MG CAPSULE PO (09:46)
[2023-09-10] MEDS: Magnesium Oxide 400 MG TABLET PO (09:47)
[2023-09-10] MEDS: Pramipexole Di-HCL 0.25 MG TABLET PO (09:47)
[2023-09-10] MEDS: Lurasidone HCl 40 MG TABLET 120 MG PO (09:47)
--- NOTE | 2023-09-10 09:53 | P.PNIM_ITS ---
Subjective Subjective Date of Service: 09/10/23 Interval History: seen in f/u for med consult, no new issues pain is better no new issues Physical Exam 2 Vital Signs: Vital Signs: Last Vital Signs Temp 97.8 F 09/10/23 07:19 Pulse 60 09/10/23 07:19 Resp 12 09/10/23 07:19 BP 108/65 09/10/23 07:19 Pulse Ox 94 09/10/23 07:19 O2 Del Method Room Air 09/10/23 07:19 O2 Flow Rate 3 09/09/23 16:15 BMI result Body Mass Index 31.3 . General: AO X 3, no acute distress Resp: CTA bilateral CVS: S1,S2,RRR GI: +BS, NT, no distention, wound dressing in place Skin: No rash Neuro: motor grossly intact Psych: appropriate affect Objective Data Active Medications Acetaminophen/Butalbital/Caffeine (Butalb/Acetamin/Caff 50/325/40 Tablet) 1 tab PO Q6H PRN PRN Reason: Migraine Headache Albuterol Sulfate (Albuterol Sulfate 90 Mcg 8 Gm Inhaler) 2 puff INHALE Q6H PRN PRN Reason: Shortness Of Breath Amlodipine Besylate (Amlodipine Besylate 2.5 Mg Tablet) 2.5 mg PO DAILY [facility]; Protocol Last Admin: 09/09/23 07:29 Dose: 2.5 mg Documented By: JASPAL Apixaban (Apixaban 5 Mg Tablet) 5 mg PO BID [facility] Last Admin: 09/08/23 07:50 Dose: 5 mg Documented By: JASPAL Calcium Carbonate (Calcium Carbonate 750 Mg Tab.Chew) 750 mg PO Q4H PRN PRN Reason: Heartburn Clonazepam (Clonazepam 1 Mg Tablet) 1 mg PO DAILY [facility] Last Admin: 09/09/23 07:30 Dose: 1 mg Documented By: JASPAL Clonazepam (Clonazepam 1 Mg Tablet) 1 mg PO DAILY@2200 [facility] Last Admin: 09/09/23 21:37 Dose: 1 mg Documented By: LEDY Docusate Sodium (Docusate Sodium 100 Mg Capsule) 100 mg PO BID [facility] Last Admin: 09/09/23 21:37 Dose: 100 mg Documented By: LEDY Fluticasone/Vilanterol (Fluticasone/Vilanterol 200/25 Blst.W.Dev) 1 puff INHALE RDAILY [facility] Last Admin: 09/10/23 08:11 Dose: Not Given Documented By: BROOKS Non-Admin Reason: Patient Refused Furosemide (Furosemide 20 Mg Tablet) 20 mg PO DAILY [facility]; Protocol Last Admin: 09/09/23 07:30 Dose: 20 mg Documented By: JASPAL Gabapentin (Gabapentin 300 Mg Capsule) 300 mg PO TID [facility] Last Admin: 09/09/23 21:37 Dose: 300 mg Documented By: LEDY Glucose (Glucose Gel 15 Gm Gel..Gram.) 15 gm PO Q15M PRN; Protocol PRN Reason: per Hypoglycemia Standing Ord. Hydromorphone HCl (Hydromorphone Hcl 0.5 Mg/0.5 Ml Syringe) 0.5 mg IVPUSH Q4H PRN; Protocol PRN Reason: Pain, Severe (Pain Scale 7-10) Last Admin: 09/08/23 18:03 Dose: 0.5 mg Documented By: JASPAL Dextrose (D10) 250 mls @ 750 mls/hr IV Q15M PRN; Protocol PRN Reason: per Hypoglycemia Standing Ord. Insulin Human Lispro (Insulin Lispro 100 Unit/Ml 3 Ml Vial) 0 unit SUBCUT QIDAS [facility]; Protocol Last Admin: 09/10/23 07:25 Dose: Not Given Documented By: JOAN Non-Admin Reason: No Insulin Coverage Lurasidone HCl (Lurasidone Hcl 40 Mg Tablet) 120 mg PO DAILY [facility] Last Admin: 09/09/23 07:28 Dose: 120 mg Documented By: JASPAL Magnesium Hydroxide (Milk Of Magnesia 30 Ml Oral.Susp) 30 ml PO DAILY PRN PRN Reason: Constipation Last Admin: 09/06/23 19:10 Dose: 30 ml Documented By: KATHIE Magnesium Oxide (Magnesium Oxide 400 Mg Tablet) 400 mg PO BIDPC [facility] Last Admin: 09/09/23 17:12 Dose: 400 mg Documented By: JASPAL Melatonin (Melatonin 3 Mg Tablet) 6 mg PO BEDTIME PRN PRN Reason: Insomnia Melatonin (Melatonin 3 Mg Tablet) 18 mg PO BEDTIME [facility] Last Admin: 09/09/23 21:38 Dose: 18 mg Documented By: LEDY Non-Formulary Medication (Bupropion Hcl) 100 mg PO DAILY [facility] Omeprazole (Omeprazole 20 Mg Capsule.Dr) 20 mg PO DAILY [facility] Last Admin: 09/09/23 07:29 Dose: 20 mg Documented By: JASPAL Ondansetron HCl (Ondansetron Hcl 4 Mg/2 Ml Vial) 4 mg IVPUSH QID PRN PRN Reason: Nausea Last Admin: 09/05/23 13:46 Dose: 4 mg Documented By: CAROL Oxycodone HCl (Oxycodone Hcl Immed Release 5 Mg Tablet) 10 mg PO Q6H PRN PRN Reason: Pain, Moderate(Pain Scale 4-6) Last Admin: 09/10/23 04:00 Dose: 10 mg Documented By: LEDY Polyethylene Glycol (Polyethylene Glycol 3350 17 Gm Powd.Pack) 17 gm PO BID [facility] Last Admin: 09/09/23 21:39 Dose: Not Given Documented By: LEDY Non-Admin Reason: Patient Refused Pramipexole Dihydrochloride (Pramipexole Di-Hcl 0.25 Mg Tablet) 0.25 mg PO DAILY [facility] Last Admin: 09/09/23 09:42 Dose: 0.25 mg Documented By: JASPAL Sodium Biphosphate/Sodium Phosphate (Sodium Phosphate,[place]-Dibasic 133 Ml Enema) 133 ml [place] ONCE PRN PRN Reason: Constipation Last Admin: 09/07/23 09:01 Dose: 133 ml Documented By: RUPERTO Sodium Chloride (0.9 % Sodium Chloride Flush 3 Ml Syringe) 3 [facility] Last Admin: 09/09/23 22:05 Dose: 3 ml Documented By: LEDY Trazodone HCl (Trazodone Hcl 100 Mg Tablet) 300 mg PO BEDTIME [facility] Last Admin: 09/09/23 21:37 Dose: 300 mg Documented By: LEDY Vitamin D (Cholecalciferol (Vitamin D3) 25 Mcg Tablet) 50 mcg PO DAILY [facility] Last Admin: 09/09/23 07:28 Dose: 50 mcg Documented By: JASPAL Vortioxetine (Vortioxetine Hydrobromide 20 Mg Tablet) 20 mg PO DAILY [facility] Last Admin: 09/09/23 07:29 Dose: 20 mg Documented By: JASPAL Labs 09/08/23 05:43 09/08/23 05:43 Labs: Laboratory Results - last 24 hr 09/09/23 09/09/23 09/09/23 11:29 16:39 20:01 POC Glucose 89 106 207 H 09/10/23 07:17 POC Glucose 137 H Assessment and Plan (1) Abdominal wall fluid collections: Status: Acute Assessment and Plan: 62/F with moderate persistent asthma, HTN, PE on Eliquis, ND-T2DM, rubs/leg syndrome, bipolar disorder, peripheral neuropathy, lumbar spondylolisthesis, GERD, history of polysubstance abuse in remission admitted to surgery service for abdominal 5 days post wound exploration with abdominal wall debridement of granulation tissue, iI&D of the abdominal wall abscess in the left upper quadrant for foreign body reaction of the abdominal wall following history of perforated marginal ulcer s/p Ruben patch. Med consult for a syncopal episode Syncope: work up negative, including tele monitoring, negative orthostatic hypoension, unremarkable echo with nl LV EF of 59%, CT head negative and no focal neuro findings. Syncopal episode likely relaetd to polypharmacy with oxycodone 5mg QID, 300 mg of trazodone, latuda, lyrica, gabapentin, lorazepam and clonazepam. Lyrica on hold, gabapentin reduced to 300 tid, stopped Ativan, clonapem at 1 mg bid and oxycodone changed to PRN rather than scheduled and no further issues. hypomagnesemia : repleted continue po magnesium abd wall collections : management per surgery. Has been treated with Vanco, levaquin, Flagyl and Diflucan--all stopped, no signs of active infection, wound mangement per surgery Abd pain, and history of ulcer--EGD today HTN BP ok, continue amlodipine, Lasix Type 2 DM--controlled, continue SSI, diabetic diet Restless legs/rubing leg syndrome--[employer] bipolar disorder continue Latuda, trazodone, Trintellix (vortioxetine), klonopin hx of pulm embolism : continue apixiban. GERD-PPI dispo:as per primary team Quality Stroke Does the patient have a stroke diagnosis?: No VTE Prior VTE?: No VTE Risk Level:: Surgical - moderate VTE Device Contraindication: N/A - Device Ordered VTE Drug Contraindication: N/A - Med Ordered
--- NOTE | 2023-09-10 10:33 | HO.POSTANES ---
Post Anesthesia Evaluation Post Anesthesia Evaluation Date of Service: 09/10/23 Vital Signs: Vital Signs Temp Pulse Resp BP Pulse Ox O2 Del Method 09/10/23 07:19 97.8 F 60 12 108/65 94 Room Air 09/10/23 03:39 97.7 F 67 18 155/75 H 94 Room Air 09/09/23 23:39 97.9 F 70 18 120/62 95 Room Air Anesthesia: Monitored Mental Status: Awake Pain Control: Satisfactory Nausea/Vomiting: None Hydration: Adequate Anesthesia-Related Issues: No Anes. Related Issues
--- NOTE | 2023-09-10 14:44 | PM.DS ---
DS: Providers Provider Date of Service: 09/10/23 Date of admission: 08/30/23 03:14 Date of discharge: 09/10/23 Primary care physician: Kat Nevarez MD Admitting clinician: Danny Hernandez Consults: 08/30/23 07:09 Consult to Hospitalist Routine Comment: Consulting Provider: Hospitalist Reason For Exam: syncopal episode 08/30/23 07:46 Consult to Gastroenterology Routine Consulting Provider: Lobo Titus Reason for consultation: hx of perforated gastric ulcer, has had no f/u Has provider been notified: No 09/02/23 14:58 Consult to Psychiatry Routine Consulting Provider: Psych Covering Reason for consultation: bipolar dis ,?polypharmacy ,need med adjustment Has provider been notified: No 09/06/23 07:23 Consult to Infectious Diseases Routine Consulting Provider: [facility] Reason for consultation: abd wall collections Has provider been notified: No Discharging clinician: Danny Hernandez DS: Diagnosis Discharge Diagnosis (1) Abdominal wall fluid collections: Status: Acute DS: Summary Hospital Course Hospital Course: Claudette Stapleton is a 62 year old female with PMH significant for pulmonary emboli on apixaban, hx of lumbar fusion, hx of perforated marginal ulcer s/p ansley patch who presented to the ED for evaluation of severe abdominal pain. Following the exploratory laparotomy, ansley patch she has had a nonhealing wound of the abdominal wall secondary to foreign body reaction and underwent wound exploration, abdominal wall, debridement of granulation tissue and incision and drainage of abdominal wall abscess in the LUQ. She was prescribed post operative antibiotics which she has been taking. She reports on Wednesday, she felt unwell, dizzy and developed nausea with one episode of vomiting. She then had a syncopal episode in her kitchen and fell to the ground and hit her hip. Unclear if she hit her head. Later in the day 08/28/2023, she developed severe abdominal pain at the incision site and her abdomen felt tight and felt like something was wrong. She denied further nausea or vomiting. She therefore presented to the ED for evaluation. Work up included CBC, BMP, LFTs and was significant for no leukocytosis and hypokalemia/hypomagnesemia of 3.1 and 1.4. Normal lactic acid. CT abd/pelvis was obtained which showed an abdominal wall collection at the umbilicus with some air lucencies and bowel-like structure along the left mid abdominal wall extending towards the abdominal cavity, concerning for developing fistula. The wound was explored at the bedside and a fluid collection identified corresponding to that seen on the CT. This was then packed with quarter-inch Nu Gauze and covered with dry sterile dressings. Also a collection in the left upper quadrant was also drained with Nu Gauze. Patient was started on IV antibiotics, Levaquin and received several doses of vancomycin. Patient was also treated with antifungal, Diflucan for approximately 8 days. The Levaquin was converted to p.o. after she was tolerating a regular diet. The dressings were changed on a daily basis and repacked with quarter-inch Nu Gauze. Cavity was noted to have decreased in size daily and on the day of discharge measured approximately 1.5 cm. All antibiotics were stopped on 09/09/2023. She remained afebrile and generally felt well. Patient also complained of constipation during her admission. She was provided with a bowel regime and subsequently was able to have a large bowel movement. Her abdomen feels nondistended and soft. She has normal bowel sounds. She should continue with the bowel regime as needed. Patient is to be discharged home on 09/10/2023 with VNA for local wound care. VNA instructions include packing of the wound with quarter-inch Nu Gauze lightly every other day. She will need daily dressing changes with 4 x 4 gauze and paper tape. She will follow up in the office in approximately 1 week. Time spent discussing smoking cessation with patient: 3 to 10 minutes Status at Discharge Functional status at discharge: independent ambulation Overall status at discharge: patient is not back to baseline Time Attestation Total time managing care of this patient today: 29 mintues. Discharge Coordination Time (in mins): 29 Quality: Safe Use of Opioids Does Pt have an Active Cancer Diagnosis on the Problem List?: No Quality: Stroke Does the patient have a stroke diagnosis?: No Physical Exam Vital Signs: Vital Signs: Last Vital Signs Temp 97.8 F 09/10/23 07:19 Pulse 60 09/10/23 07:19 Resp 12 09/10/23 07:19 BP 108/65 09/10/23 07:19 Pulse Ox 94 09/10/23 07:19 O2 Del Method Room Air 09/10/23 07:19 O2 Flow Rate 3 09/09/23 16:15 BMI result Body Mass Index 31.3 Const: General: no acute distress Nutritional Appearance: well nourished Orientation/consciousness: patient oriented x3 Resp: Effort & Inspection: normal respiratory effort GI: Other: Dressings changed and minimal discharge noted on dressing. Wounds repacked. Packing depth now 1.5 cm. Wounds lightly packed with quarter-inch Gauze. Dry sterile dressings applied. Dry sterile dressing placed on left upper quadrant trocar site. Minimal discharge noted from this. Neuro: General: patient oriented x3 DS: Data Data Completed and Pending Completed studies during hospitalization [Text1]: Procedures Excision of Lumbar Vertebral Disc, Open Approach (05/31/23) Fusion of Lumbar Vertebral Joint with Interbody Fusion Device, Anterior Approach, Anterior Column, Open Approach (05/31/23) Insertion of Endotracheal Airway into Trachea, Via Natural or Artificial Opening (05/31/23) Insertion of Infusion Device into Superior Vena Cava, Percutaneous Approach (05/31/23) Insertion of Interspinous Process Spinal Stabilization Device into Lumbar Vertebral Joint, Open Approach (05/31/23) Introduction of Vasopressor into Central Vein, Percutaneous Approach (05/31/23) Repair Jejunum, Open Approach (05/31/23) Respiratory Ventilation, 24-96 Consecutive Hours (05/31/23) Ultrasonography of Superior Vena Cava, Guidance (05/31/23) Pending studies at discharge: Pending at discharge 09/09/23 15:55 Surgical [PTH] Routine Labs on day of discharge: Laboratory Results - last 24 hr 09/09/23 09/09/23 09/10/23 16:39 20:01 07:17 POC Glucose 106 207 H 137 H Discharge Plan Discharge Anticipated Discharge Date/Time: 09/10/23 08:02 Patient Disposition: Home Health Service Discharge Diagnosis: Abdominal wall fluid collection, perforated gastric ulcer Referrals: Kat Nevarez MD [Primary Care Provider] - 1 Week Danny Hernandez MD [Physician] - 1 Week Discharge Medications: New gabapentin 300 mg Capsule 300 mg PO TID Qty: 270 0RF oxycodone 5 mg tablet 5 mg PO Q6H PRN (Reason: pain (scale score 7-10)) Qty: 15 0RF Rx Instructions: Partial Fill upon patient request. Continued ([facility]) 1/4 inch plain packing 1 bottle See Rx Instructions .Route .MEDSUPPLY Qty: 1 0RF Rx Instructions: As directed ([facility]) 4x4 sterile gauze 1 sleeve See Rx Instructions .Route .MEDSUPPLY Qty: 1 0RF Rx Instructions: As directed ([facility]) Curity Abdominal Pad 5 X 9 bandage See Rx Instructions .ROUTE .MEDSUPPLY Qty: 30 0RF Rx Instructions: As directed ([facility]) 2 inch cloth tape 1 roll See Rx Instructions .Route .MEDSUPPLY Qty: 1 0RF Rx Instructions: As directed furosemide 40 mg tablet 20 mg PO DAILY clonazepam 1 mg tablet 1 mg PO DAILY bupropion HCl 100 mg tablet sustained-release 12 hr 100 mg PO QAM [id number]-zkwyinsixufyn-evvg 50-325-40 mg tablet 1 tab PO Q6H PRN (Reason: pain) trazodone 100 mg tablet 300 mg PO BEDTIME pramipexole 0.25 mg tablet 0.25 mg PO DAILY albuterol sulfate [Ventolin HFA] 90 mcg/actuation Hfa Aerosol Inhaler 2 puff INHALATION Q6H PRN (Reason: Shortness Of Breath) budesonide-formoterol [Symbicort] 160-4.5 mcg/actuation HFA aerosol inhaler 2 puff inhalation BID Trintellix 20 mg tablet 20 mg PO DAILY omeprazole 20 mg capsule,delayed release(DR/EC) 20 mg PO DAILY Qty: 30 0RF (DME) Ultra-Light Rollator Misc See Rx Instructions .Route Qty: 1 0RF Rx Instructions: As directed amlodipine 5 mg tablet 5 mg PO DAILY pregabalin 200 mg capsule 200 mg PO BID cholecalciferol (vitamin D3) 50 mcg (2,000 unit) capsule 50 mcg PO DAILY lurasidone 120 mg tablet 120 mg PO DAILY melatonin 10 mg Tablet 20 mg PO BEDTIME atorvastatin 40 mg tablet 40 mg PO DAILY Eliquis 5 mg tablet 5 mg PO BID (DME) cane to fit See Rx Instructions .Route .MEDSUPPLY Qty: 1 0RF Rx Instructions: As directed Changed clonazepam 1 mg Tablet 1 mg PO DAILY@1800 Qty: 7 0RF Discontinued gabapentin 800 mg tablet 800 mg PO BID lorazepam 1 mg tablet 1 mg PO BID hydroxyzine HCl 10 mg tablet 10 mg PO DAILY PRN (Reason: Anxiety) metoprolol tartrate 25 mg Tablet 25 mg PO DAILY oxycodone-acetaminophen 5-325 mg tablet 1 tab PO QID levofloxacin 500 mg tablet 500 mg PO DAILY 10 Days Qty: 10 0RF Discharge Orders: Discharge Order (Routine); Ordered 09/10/23 Ordered By: Danny Hernandez Diet: Advance to usual diet Activity on Discharge: No heavy lifting Stand Alone Forms: Patient Portal Discharge page Print Language: Martiniquais Activity Restrictions/Additional Instructions: Dressing changes: Over weekend, change dressing with 4x4 gauze daily. VNA directions: Wednesday: remove packing and replace packing with 1/4 inch Nugauze, pack lightly and cover with 4x4 gauze. Can be changed every other day, with change of the overlying dressing daily. Patient may shower prior to changing the dressing. Care Plan Goals: Return to normal diet and activity Health Concerns: Abdominal wall fluid collection Plan of Treatment: Drainage of fluid collection, IV antibiotics Upper endoscopy Assessment: Intact gastric bypass Resolving abdominal wall fluid collection Discharge Date/Time: 09/10/23 10:45
== END 2023-09-10 10:45 | disposition home health service (06) | DRG 921 ==
LOC: HO.ED 08-30 03:13 → HO.EDOVER 08-30 03:21 → HO.S3 08-30 08:31
PROVIDERS: Internal Medicine; Internal Medicine Gastroenterology; Admitting Provider Surgery; Emergency Provider Emergency Medicine; PCP Internal Medicine; Visit Provider Surgery
PROC: 0DJ08ZZ Inspection of Upper Intestinal Tract, Via Natural or Artificial Opening Endoscopic (ICD-10-PCS; CPT 43235; principal; 2023-09-09 15:30)
DX: L76.34 Postprocedural seroma of skin and subcutaneous tissue following other procedure (principal); Y83.8 Other surgical procedures as the cause of abnormal reaction of the patient, or of later complication, without mention of misadventure at the time of the procedure; F31.9 Bipolar disorder, unspecified; E11.42 Type 2 diabetes mellitus with diabetic polyneuropathy; K21.9 Gastro-esophageal reflux disease without esophagitis; J45.40 Moderate persistent asthma, uncomplicated; I10 Essential (primary) hypertension; E83.42 Hypomagnesemia; R55 Syncope and collapse; G89.18 Other acute postprocedural pain; T50.915A Adverse effect of multiple unspecified drugs, medicaments and biological substances, initial encounter; G25.81 Restless legs syndrome; Z20.822 Contact with and (suspected) exposure to COVID-19; Z86.711 Personal history of pulmonary embolism; Z98.1 Arthrodesis status; Z98.84 Bariatric surgery status; Z79.01 Long term (current) use of anticoagulants; Z79.899 Other long term (current) drug therapy
CPT/HCPCS: 0241U; 36415; 70450; 71045; 73130; 74177; 80048; 80053; 80076; 80202; 81001; 82565; 82947; 83605; 83690; 83735; 83880; 84484; 85025; 85610; 86140; 87040; 87070; 87077; 87086; 87186; 87205; 88305; 93005; 93306; 94640; 99285; J0131; J1100; J1170; J1596; J1836; J1956; J2250; J2270; J2405; J2704; J3370; J3475; J3480; J7120; Q9957; Q9967

== ENCOUNTER → 2023-08-29 23:45 | Outpatient (BNV) | payer OTHER, SELFPAY | PROVIDERS: Admitting Provider Surgery; Emergency Provider Emergency Medicine; PCP Internal Medicine; Visit Provider Internal Medicine | DX: R94.31 Abnormal electrocardiogram [ECG] [EKG] (principal) | CPT/HCPCS: 93010 ==

== ENCOUNTER 2023-08-30 03:14 | Outpatient (BNV) | payer OTHER, SELFPAY | END 2023-08-31 07:00 | PROVIDERS: Admitting Provider Surgery; Emergency Provider Emergency Medicine; PCP Internal Medicine; Visit Provider Internal Medicine | DX: I36.1 Nonrheumatic tricuspid (valve) insufficiency (principal) | CPT/HCPCS: 93306 ==

== ENCOUNTER → 2023-08-30 03:14 | Outpatient (BNV) | payer OTHER, SELFPAY | PROVIDERS: Admitting Provider Surgery; Emergency Provider Emergency Medicine; PCP Internal Medicine; Visit Provider Physician Assistant | DX: R18.8 Other ascites (principal) | CPT/HCPCS: 99222; 99231; 99232 ==

== ENCOUNTER → 2023-08-30 03:14 | Outpatient (BNV) | payer OTHER, SELFPAY | PROVIDERS: Admitting Provider Surgery; Emergency Provider Emergency Medicine; PCP Internal Medicine; Visit Provider Physician Assistant Surgical | DX: R18.8 Other ascites (principal) | CPT/HCPCS: 99024; 99212; 99232; 99238; G0180 ==

== ENCOUNTER → 2023-08-30 03:14 | Outpatient (BNV) | payer OTHER, SELFPAY | PROVIDERS: Admitting Provider Surgery; Emergency Provider Emergency Medicine; PCP Internal Medicine; Visit Provider Internal Medicine | DX: Z79.899 Other long term (current) drug therapy (principal); R18.8 Other ascites | CPT/HCPCS: 99222 ==

== ENCOUNTER 2023-09-14 09:44 | Outpatient (AMB) | payer OTHER, SELFPAY ==
--- NOTE | 2023-09-14 09:51 | MHC.OFFVIS ---
Vital Signs 09/14/23 10:09 Height 5 ft 5 in Weight 187 lb 6.287 oz BMI 31.2 Intake Visit Reasons: S/P Wound exploration, abdominal wall Intake Note: Patient is seen in office for post op assessment post abdominal wall wound exploration. Pt c/o: has VNA coming in 3 times a week, has some minimal discharge and pain Community Outreach Director Required: No Accompanied by: Family/Other Allergies cephalexin [From Keflex] Allergy (Intermediate, Verified 09/14/23 10:09) Swelling doxycycline Allergy (Intermediate, Verified 09/14/23 10:09) Hives glipizide Allergy (Intermediate, Verified 09/14/23 10:09) Rash metformin Allergy (Intermediate, Verified 09/14/23 10:09) Itching morphine Allergy (Intermediate, Verified 09/14/23 10:09) Nausea and Vomiting/ineffective ropinirole [From Requip] Allergy (Intermediate, Verified 09/14/23 10:09) Nausea and Vomiting CLARITZA Inhibitors Adverse Reaction (Intermediate, Verified 09/14/23 10:09) Cough HPI Comments Details: Patient reports being sleepy today after taking pain medication. Denies any abdominal pain at this time. Discharge seems to be decreasing. She continues with VNA every other day. [facility] Medical History Physical deconditioning Arthritis GERD (gastroesophageal reflux disease) Depression Polysubstance abuse Osteoarthritis Sleep apnea Elevated cholesterol Bipolar 1 disorder RLS (restless legs syndrome) Asthma HTN (hypertension) Pulmonary embolism Peripheral neuropathy Diabetes Spondylolisthesis, lumbar region Surgical History History of spinal surgery (05/31/23) History of Pamela-en-Y gastric bypass (~03/2023) Hx of exploratory laparotomy (06/03/23) H/O colonoscopy History of total right knee replacement Hx of tonsillectomy Hx of tubal ligation Hx of hysterectomy History of sleeve gastrectomy Social History Household Members: Spouse Housing: Apartment Are you a primary auto care center manager to a significant other at home: No Do you presently have visiting nurse or other home services: Yes Comment: aware of trip hazard Patient Tobacco Use Status: Never used Tobacco Second Hand Smoke Exposure: No service: No Review of Systems Const All systems reviewed & are unremarkable except as noted in HPI and below Physical Exam Vital Signs: BMI result Body Mass Index 31.2 Const General: comfortable Nutritional Appearance: obese Orientation/consciousness: patient oriented x3 Limitations: wheelchair Resp Effort & Inspection: normal respiratory effort GI Other: Umbilical opening is now 0.5 cm deep, unable to pack. Excellent granulation tissue at the margins. Wounds covered with dry sterile dressings without packing. Neuro General: patient oriented x3 Assessment & Plan Assessment & Plan (1) Abdominal wall fluid collections: Code(s): R18.8 - Other ascites Category: Medical Plan Collection is now markedly improved with an opening of only 0.5 cm remaining. Wound could not be packed at this time therefore only applied dry sterile dressings daily. Follow-up in 2 weeks. Coding Level of Care Code Est Pt Level 3 (85939) Diagnoses Abdominal wall fluid collections R18.8
[2023-09-14 10:09] VITALS: BMI 31.2
== END 2023-09-14 10:23 | disposition home or self-care (01) ==
PROVIDERS: PCP Internal Medicine; Visit Provider Surgery
DX: R18.8 Other ascites (principal)
CPT/HCPCS: 99213

== ENCOUNTER → 2023-09-14 09:44 | Outpatient (BNVA) | payer OTHER, SELFPAY | PROVIDERS: PCP Internal Medicine; Visit Provider Surgery | DX: R18.8 Other ascites (principal) | CPT/HCPCS: 99212 ==

== ENCOUNTER 2023-09-30 09:36 | Outpatient (AMB) | payer OTHER, SELFPAY ==
--- NOTE | 2023-09-30 09:41 | A.OFFVIS_ITS ---
Vital Signs 09/30/23 09:45 Height 5 ft 5 in Weight 187 lb 6.287 oz BMI 31.2 Pulse 62 Intake Visit Reasons: S/P Wound exploration, abdominal wall Intake Note: Patient is seen in office for 2 wks follow up visit, post abdominal wall wound exploration. 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 Required: No Accompanied by: Family/Other Allergies cephalexin [From Keflex] Allergy (Intermediate, Verified 09/30/23 09:45) Swelling doxycycline Allergy (Intermediate, Verified 09/30/23 09:45) Hives glipizide Allergy (Intermediate, Verified 09/30/23 09:45) Rash metformin Allergy (Intermediate, Verified 09/30/23 09:45) Itching morphine Allergy (Intermediate, Verified 09/30/23 09:45) Nausea and Vomiting/ineffective ropinirole [From Requip] Allergy (Intermediate, Verified 09/30/23 09:45) Nausea and Vomiting CLARITZA Inhibitors Adverse Reaction (Intermediate, Verified 09/30/23 09:45) Cough Medication List - Last Reconciled 09/30/23 by Danny Hernandez MD [1/4 inch plain packing As directed] [2 inch cloth tape As directed] [4x4 sterile gauze As directed] albuterol sulfate 90 mcg/actuation (Ventolin HFA) 2 puffs inhalation Q6H PRN amlodipine 5 mg PO DAILY apixaban (Eliquis) 5 mg PO BID atorvastatin 40 mg PO DAILY budesonide-formoterol 160-4.5 mcg/actuation (Symbicort) 2 puffs inhalation BID bupropion HCl SR 100 mg PO QAM jobfptjrbu-xowrskczgtglp-afex 50-325-40 mg 1 tab PO Q6H PRN [cane As directed] cholecalciferol (vitamin D3) 50 mcg PO DAILY clonazepam 1 mg PO DAILY clonazepam 1 mg PO DAILY@1800 furosemide 20 mg PO DAILY gabapentin 300 mg PO TID lidocaine 5% (Lidoderm) 1 patch topical DAILY lurasidone 120 mg PO DAILY melatonin 20 mg PO BEDTIME non-adherent bandage (Curity Abdominal Pad) As directed omeprazole 20 mg PO DAILY oxycodone 5 mg PO TID PRN pramipexole 0.25 mg PO DAILY pregabalin 200 mg PO BID trazodone 300 mg PO BEDTIME vortioxetine (Trintellix) 20 mg PO DAILY walker (Ultra-Light Rollator misc) As directed HPI Comments Details: Patient returns for wound check of her lower abdominal incision. She reports continued discharge with daily dressing changes. Discharge appears bloody. She denies fever or chills. Visiting nurses are changing the dressing 3 times weekly. [facility] Medical History Polypharmacy Acute hypokalemia Hypomagnesemia Abdominal pain Physical deconditioning Arthritis GERD (gastroesophageal reflux disease) Depression Polysubstance abuse Osteoarthritis Sleep apnea Elevated cholesterol Bipolar 1 disorder RLS (restless legs syndrome) Asthma HTN (hypertension) Pulmonary embolism Peripheral neuropathy Diabetes Spondylolisthesis, lumbar region Surgical History History of spinal surgery (05/31/23) History of Pamela-en-Y gastric bypass (~03/2023) Hx of exploratory laparotomy (06/03/23) H/O colonoscopy History of total right knee replacement Hx of tonsillectomy Hx of tubal ligation Hx of hysterectomy History of sleeve gastrectomy Social History Household Members: Spouse Housing: Apartment Are you a primary healthcare science specialist to a significant other at home: No Do you presently have visiting nurse or other home services: Yes Comment: aware of trip hazard Patient Tobacco Use Status: Never used Tobacco Second Hand Smoke Exposure: No service: No Review of Systems Const All systems reviewed & are unremarkable except as noted in HPI and below Physical Exam Vital Signs: Last Vital Signs Pulse 62 09/30/23 09:45 BMI result Body Mass Index 31.2 Const General: comfortable Nutritional Appearance: obese Orientation/consciousness: patient oriented x3 Limitations: wheelchair Resp Effort & Inspection: normal respiratory effort GI Other: Abdominal incision now reveals granulation tissue proud of the incision (proud flesh). Silver nitrate was applied cauterized the granulation tissue. Dry sterile dressing was then applied. Neuro General: patient oriented x3 Assessment & Plan Assessment & Plan (1) Abdominal wall fluid collections: Code(s): R18.8 - Other ascites Category: Medical Plan 63-year-old female patient with a previous history of perforated Pamela Y anastomosis following gastric bypass now with persistent drainage from her abdominal wall incision. The previous collection is now healed but she has persistent granulation tissue from the incision. This was cauterized today and dry sterile dressings applied. She should continue with daily dressing changes and follow-up in 2 weeks for possible repeat cauterization. Medications: New lidocaine 5% (Lidoderm) leave on most painful area for up to 12 hrs 1 patch topical DAILY 30 ea 0RF R18.8 - Other ascites Coding Level of Care Code Est Pt Level 3 (42984) Diagnoses Abdominal wall fluid collections R18.8
[2023-09-30 09:45] VITALS: PULSE 62; BMI 31.2
== END 2023-09-30 09:54 | disposition home or self-care (01) ==
PROVIDERS: PCP Internal Medicine; Visit Provider Surgery
DX: R18.8 Other ascites (principal)
CPT/HCPCS: 17250; 99213

== ENCOUNTER → 2023-09-30 09:36 | Outpatient (BNVA) | payer OTHER, SELFPAY | PROVIDERS: PCP Internal Medicine; Visit Provider Surgery | DX: R18.8 Other ascites (principal); Z98.84 Bariatric surgery status | CPT/HCPCS: 17250; 99212 ==

== ENCOUNTER 2023-10-15 09:18 | Outpatient (AMB) | payer OTHER, SELFPAY ==
--- NOTE | 2023-10-15 09:41 | A.OFFVIS_ITS ---
Vital Signs 10/15/23 09:42 Height 5 ft 5 in Weight 159 lb 2.78 oz BMI 26.5 Pulse 62 Intake Visit Reasons: 2 wk fU S/P Wound exploration, abdominal wall Intake Note: Patient is seen in office for 2 weeks follow up visit, post abdominal wall wound exploration. Pt c/o: admits to feeling tired, some discharge in the area, has nurse coming in 3 times per week Ore Grader Required: No Accompanied by: Family/Other Allergies cephalexin [From Keflex] Allergy (Intermediate, Verified 10/15/23 09:41) Swelling doxycycline Allergy (Intermediate, Verified 10/15/23 09:41) Hives glipizide Allergy (Intermediate, Verified 10/15/23 09:41) Rash metformin Allergy (Intermediate, Verified 10/15/23 09:41) Itching morphine Allergy (Intermediate, Verified 10/15/23 09:41) Nausea and Vomiting/ineffective ropinirole [From Requip] Allergy (Intermediate, Verified 10/15/23 09:41) Nausea and Vomiting CLARITZA Inhibitors Adverse Reaction (Intermediate, Verified 10/15/23 09:41) Cough Medication List - Last Reconciled 10/15/23 by Danny Hernandez MD [1/4 inch plain packing As directed] [2 inch cloth tape As directed] [4x4 sterile gauze As directed] albuterol sulfate 90 mcg/actuation (Ventolin HFA) 2 puffs inhalation Q6H PRN amlodipine 5 mg PO DAILY apixaban (Eliquis) 5 mg PO BID atorvastatin 40 mg PO DAILY budesonide-formoterol 160-4.5 mcg/actuation (Symbicort) 2 puffs inhalation BID bupropion HCl SR 100 mg PO QAM [id number]-[id number]-ucwh 50-325-40 mg 1 tab PO Q6H PRN [cane As directed] cholecalciferol (vitamin D3) 50 mcg PO DAILY clonazepam 1 mg PO DAILY clonazepam 1 mg PO DAILY@1800 furosemide 20 mg PO DAILY gabapentin 300 mg PO TID lidocaine 5% (Lidoderm) 1 patch topical DAILY lurasidone 120 mg PO DAILY melatonin 20 mg PO BEDTIME non-adherent bandage (Curity Abdominal Pad) As directed omeprazole 20 mg PO DAILY oxycodone 5 mg PO TID PRN pramipexole 0.25 mg PO DAILY pregabalin 200 mg PO BID trazodone 300 mg PO BEDTIME vortioxetine (Trintellix) 20 mg PO DAILY walker (Ultra-Light Rollator misc) As directed HPI Comments Details: Patient reports feeling tired and achy, not much energy. She eats but does have some pain after she eats mainly in the lower abdomen. She was constipated but is now moving her bowels daily. She denies any fever or chills. She denies back pain. She has not seen her primary care physician or her bariatric surgeon. [facility] Medical History Polypharmacy Acute hypokalemia Hypomagnesemia Abdominal pain Physical deconditioning Arthritis GERD (gastroesophageal reflux disease) Depression Polysubstance abuse Osteoarthritis Sleep apnea Elevated cholesterol Bipolar 1 disorder RLS (restless legs syndrome) Asthma HTN (hypertension) Pulmonary embolism Peripheral neuropathy Diabetes Spondylolisthesis, lumbar region Surgical History History of spinal surgery (05/31/23) History of Pamela-en-Y gastric bypass (~03/2023) Hx of exploratory laparotomy (06/03/23) H/O colonoscopy History of total right knee replacement Hx of tonsillectomy Hx of tubal ligation Hx of hysterectomy History of sleeve gastrectomy Social History Household Members: Spouse Housing: Apartment Are you a primary health care administrator to a significant other at home: No Do you presently have visiting nurse or other home services: Yes Comment: aware of trip hazard Patient Tobacco Use Status: Never used Tobacco Second Hand Smoke Exposure: No service: No Review of Systems Const All systems reviewed & are unremarkable except as noted in HPI and below Physical Exam Vital Signs: Last Vital Signs Pulse 62 10/15/23 09:42 BMI result Body Mass Index 26.5 Const General: comfortable Nutritional Appearance: obese Orientation/consciousness: patient oriented x3 Limitations: wheelchair Resp Effort & Inspection: normal respiratory effort GI Other: Abdominal incision now reveals a smaller area of granulation tissue proud of the incision (proud flesh). Silver nitrate was again applied to cauterized the granulation tissue. Dry sterile dressing was then applied. Neuro General: patient oriented x3 Extrem General: No edema Assessment & Plan Assessment & Plan (1) Abdominal wall fluid collections: Code(s): R18.8 - Other ascites Category: Medical Plan 63-year-old female patient with a previous history of perforated Pamela Y anastomosis following gastric bypass now with persistent drainage from her abdominal wall incision. The previous collection is now healed but she has persistent granulation tissue from the incision which is smaller on today's visit and was again cauterized with silver nitrate. I have asked her to return in a proximally 3 weeks for follow-up examination. She should also follow-up with her primary care physician due to her persistent tiredness. I also recommended follow-up with her bariatric surgeon. Coding Level of Care Code Est Pt Level 3 (11289) Diagnoses Abdominal wall fluid collections R18.8
[2023-10-15 09:42] VITALS: PULSE 62; BMI 26.5
== END 2023-10-15 09:49 | disposition home or self-care (01) ==
PROVIDERS: PCP Internal Medicine; Visit Provider Surgery
DX: R18.8 Other ascites (principal)
CPT/HCPCS: 99213

== ENCOUNTER → 2023-10-15 09:18 | Outpatient (BNVA) | payer OTHER, SELFPAY | PROVIDERS: PCP Internal Medicine; Visit Provider Surgery | DX: R18.8 Other ascites (principal); R10.30 Lower abdominal pain, unspecified | CPT/HCPCS: 99212 ==

== ENCOUNTER 2023-11-05 10:12 | Outpatient (AMB) | payer OTHER, SELFPAY ==
--- NOTE | 2023-11-05 10:18 | MHC.OFFVIS ---
Vital Signs 11/05/23 10:36 Height 5 ft 5 in Weight 166 lb 6 oz BMI 27.7 BP 114/56 L Blood Pressure Location Lt brachial Position Sitting Pulse 58 Intake Visit Reasons: abd wound looks infected and has bump Intake Note: Patient is seen in office for wound check, post exploration abdominal wall mass. Pt c/o: has notice some discharge coming out of the belly button, denies redness, pain 6/10 scale, taking Percocet with relief Patient Svcs Mgr Required: No Accompanied by: Family/Other Allergies cephalexin [From Keflex] Allergy (Intermediate, Verified 11/05/23 10:28) Swelling doxycycline Allergy (Intermediate, Verified 11/05/23 10:28) Hives glipizide Allergy (Intermediate, Verified 11/05/23 10:28) Rash metformin Allergy (Intermediate, Verified 11/05/23 10:28) Itching morphine Allergy (Intermediate, Verified 11/05/23 10:28) Nausea and Vomiting/ineffective ropinirole [From Requip] Allergy (Intermediate, Verified 11/05/23 10:28) Nausea and Vomiting CLARITZA Inhibitors Adverse Reaction (Intermediate, Verified 11/05/23 10:28) Cough HPI Comments Details: Claudette returns for wound check. She reports that the wound has been dry with no further discharge until several days ago when she began to have some bloody discharge from the umbilicus. She feels some pain in this location 6 to 7/10. She is receiving pain medication from her primary care physician. She denies any fever or chills. [facility] Medical History Polypharmacy Acute hypokalemia Hypomagnesemia Abdominal pain Physical deconditioning Arthritis GERD (gastroesophageal reflux disease) Depression Polysubstance abuse Osteoarthritis Sleep apnea Elevated cholesterol Bipolar 1 disorder RLS (restless legs syndrome) Asthma HTN (hypertension) Pulmonary embolism Peripheral neuropathy Diabetes Spondylolisthesis, lumbar region Surgical History History of spinal surgery (05/31/23) History of Pamela-en-Y gastric bypass (~03/2023) Hx of exploratory laparotomy (06/03/23) H/O colonoscopy History of total right knee replacement Hx of tonsillectomy Hx of tubal ligation Hx of hysterectomy History of sleeve gastrectomy Social History Household Members: Spouse Housing: Apartment Are you a primary urgent care nurse practitioner to a significant other at home: No Do you presently have visiting nurse or other home services: Yes Comment: aware of trip hazard Patient Tobacco Use Status: Never used Tobacco Second Hand Smoke Exposure: No service: No Physical Exam Vital Signs: Last Vital Signs Pulse 58 11/05/23 10:36 BP 114/56 L 11/05/23 10:36 BMI result Body Mass Index 27.7 Const General: lethargic Nutritional Appearance: well nourished Orientation/consciousness: lethargic Resp Effort & Inspection: normal respiratory effort GI Other: Well-healed midline incision. An area of redness is noted within the umbilicus with no open wound. This appears to be a cutaneous fungal infection due to moisture within the umbilicus. Assessment & Plan Assessment & Plan (1) Fungal skin infection: Code(s): B36.9 - Superficial mycosis, unspecified Category: Medical Plan Recommended applying nystatin cream to the umbilicus twice daily with a cotton swab. She will return in 1 month for follow-up examination. Medications: New nystatin 1 appl topical BID 15 grams 0RF B36.9 - Superficial mycosis, unspecified Coding Level of Care Code Global (18745) Diagnoses Fungal skin infection B36.9
[2023-11-05 10:36] VITALS: BP 114/56; PULSE 58; BMI 27.7
== END 2023-11-05 10:46 | disposition home or self-care (01) ==
PROVIDERS: PCP Internal Medicine; Visit Provider Surgery
DX: B36.9 Superficial mycosis, unspecified (principal)
CPT/HCPCS: 99024

== ENCOUNTER → 2023-11-05 10:12 | Outpatient (BNVA) | payer OTHER, SELFPAY | PROVIDERS: PCP Internal Medicine; Visit Provider Surgery | DX: B36.9 Superficial mycosis, unspecified (principal) | CPT/HCPCS: 99212 ==

== ENCOUNTER 2023-12-07 10:17 | Outpatient (AMB) | payer OTHER, SELFPAY ==
--- NOTE | 2023-12-07 10:23 | MHC.OFFVIS ---
Vital Signs 12/07/23 10:27 Height 5 ft 5 in Weight 165 lb 5.547 oz BMI 27.5 Pulse 60 Intake Visit Reasons: 1 mth fu abd wound looks infected and has bump Intake Note: Patient is seen in office for one month follow up visit, wound check. Pt c/o: per pt area is healed, denies any discharge, redness or swelling surgery:08/23/23 Facilitator Required: No Accompanied by: Family/Other Allergies cephalexin [From Keflex] Allergy (Intermediate, Verified 12/07/23 10:28) Swelling doxycycline Allergy (Intermediate, Verified 12/07/23 10:28) Hives glipizide Allergy (Intermediate, Verified 12/07/23 10:28) Rash metformin Allergy (Intermediate, Verified 12/07/23 10:28) Itching morphine Allergy (Intermediate, Verified 12/07/23 10:28) Nausea and Vomiting/ineffective ropinirole [From Requip] Allergy (Intermediate, Verified 12/07/23 10:28) Nausea and Vomiting CLARITZA Inhibitors Adverse Reaction (Intermediate, Verified 12/07/23 10:28) Cough Medication List - Last Reconciled 12/07/23 by Danny Hernandez MD [1/4 inch plain packing As directed] [2 inch cloth tape As directed] [4x4 sterile gauze As directed] albuterol sulfate 90 mcg/actuation (Ventolin HFA) 2 puffs inhalation Q6H PRN amlodipine 5 mg PO DAILY apixaban (Eliquis) 5 mg PO BID atorvastatin 40 mg PO DAILY budesonide-formoterol 160-4.5 mcg/actuation (Symbicort) 2 puffs inhalation BID bupropion HCl SR 100 mg PO QAM ilulxojlln-ojbodtjxdsxoy-zgtz 50-325-40 mg 1 tab PO Q6H PRN [cane As directed] cholecalciferol (vitamin D3) 50 mcg PO DAILY clonazepam 1 mg PO DAILY clonazepam 1 mg PO DAILY@1800 furosemide 20 mg PO DAILY gabapentin 300 mg PO TID lidocaine 5% (Lidoderm) 1 patch topical DAILY lurasidone 120 mg PO DAILY melatonin 20 mg PO BEDTIME non-adherent bandage (Curity Abdominal Pad) As directed nystatin 1 appl topical BID omeprazole 20 mg PO DAILY oxycodone 5 mg PO TID PRN pramipexole 0.25 mg PO DAILY pregabalin 200 mg PO BID trazodone 300 mg PO BEDTIME vortioxetine (Trintellix) 20 mg PO DAILY walker (Ultra-Light Rollator mis) As directed HPI Comments Details: Claudette returns for wound check. She feels much improved with no further abdominal pain, redness or discharge. She used the nystatin and that helped with the discharge. She does report loss of balance and is using a cane for ambulation. [facility] Medical History Polypharmacy Acute hypokalemia Hypomagnesemia Abdominal pain Physical deconditioning Arthritis GERD (gastroesophageal reflux disease) Depression Polysubstance abuse Osteoarthritis Sleep apnea Elevated cholesterol Bipolar 1 disorder RLS (restless legs syndrome) Asthma HTN (hypertension) Pulmonary embolism Peripheral neuropathy Diabetes Spondylolisthesis, lumbar region Surgical History Status post debridement (08/23/23) History of spinal surgery (05/31/23) History of Pamela-en-Y gastric bypass (~03/2023) Hx of exploratory laparotomy (06/03/23) H/O colonoscopy History of total right knee replacement Hx of tonsillectomy Hx of tubal ligation Hx of hysterectomy History of sleeve gastrectomy Social History Household Members: Spouse Housing: Apartment Are you a primary healthcare administrator to a significant other at home: No Do you presently have visiting nurse or other home services: Yes Comment: aware of trip hazard Patient Tobacco Use Status: Never used Tobacco Second Hand Smoke Exposure: No service: No Review of Systems Const All systems reviewed & are unremarkable except as noted in HPI and below GI Denies abdominal pain, Denies constipation, Denies nausea and Denies vomiting Musc Reports abnormal gait and Reports back pain Neuro Reports abnormal gait Physical Exam Const General: no acute distress Nutritional Appearance: well nourished Orientation/consciousness: patient oriented x3 Resp Effort & Inspection: normal respiratory effort GI Other: Midline incision is clean, dry, and intact without redness or discharge Palpation (GI): Soft to palpation, nontender, no guarding and not rigid Neuro General: patient oriented x3 Extrem General: No edema Assessment & Plan Assessment & Plan (1) Fungal skin infection: Code(s): B36.9 - Superficial mycosis, unspecified Category: Medical Plan Patient returns for follow-up examination after developing a fungal skin infection. Her incision is now clean, dry and intact without evidence of ongoing infection. She should follow up as needed. Coding Level of Care Code Est Pt Level 3 (61302) Diagnoses Fungal skin infection B36.9
[2023-12-07 10:27] VITALS: PULSE 60; BMI 27.5
== END 2023-12-07 10:30 | disposition home or self-care (01) ==
LOC: HO.HGS 10:17
PROVIDERS: PCP Internal Medicine; Visit Provider Surgery
DX: B36.9 Superficial mycosis, unspecified (principal)
CPT/HCPCS: 99213

== ENCOUNTER → 2023-12-07 10:17 | Outpatient (BNVA) | payer OTHER, SELFPAY | PROVIDERS: PCP Internal Medicine; Visit Provider Surgery | DX: Z87.2 Personal history of diseases of the skin and subcutaneous tissue (principal) | CPT/HCPCS: 99212 ==

== ENCOUNTER 2024-04-07 11:17 | Outpatient (AMB) | payer OTHER, SELFPAY ==
--- NOTE | 2024-04-07 11:18 | A.OFFVIS_ITS ---
Vital Signs 04/07/24 11:30 Height 5 ft 5 in Weight 150 lb BMI 25.0 BP 114/68 Blood Pressure Location Rt brachial Position Sitting Pulse 62 Intake Visit Reasons: ? abscess umbilical region Intake Note: Patient is seen in office for an abscess of the umbilical area. Present for months. Hx of abscess left upper quadrant abdomen excised 08-23-2023. Pt c/o: painful, bright yellow discharge. Denies opened wound. [place] Required: No Accompanied by: Geovanny Allergies cephalexin [From Keflex] Allergy (Intermediate, Verified 04/07/24 11:25) Swelling doxycycline Allergy (Intermediate, Verified 04/07/24 11:25) Hives glipizide Allergy (Intermediate, Verified 04/07/24 11:25) Rash metformin Allergy (Intermediate, Verified 04/07/24 11:25) Itching morphine Allergy (Intermediate, Verified 04/07/24 11:25) Nausea and Vomiting/ineffective ropinirole [From Requip] Allergy (Intermediate, Verified 04/07/24 11:25) Nausea and Vomiting CLARITZA Inhibitors Adverse Reaction (Intermediate, Verified 04/07/24 11:25) Cough HPI Comments Details: 63-year-old female patient with a prior history of gastric bypass surgery, lumbar fusion, repair of perforated Pamela Y anastomosis now presenting for complaints of upper abdominal pain and dark tarry stools. Her bowels are moving every 2-3 days but are generally black and liquidy. She reports feeling dizzy for recently was evaluated in [facility] and found to have a normal hemoglobin level. The abdominal pain is mainly in the upper abdomen and epigastrium. She is only able to eat small quantities of food before she begins to feel full. She has not been seen by her bariatric surgeon. [facility] Medical History Polypharmacy Acute hypokalemia Hypomagnesemia Abdominal pain Physical deconditioning Arthritis GERD (gastroesophageal reflux disease) Depression Polysubstance abuse Osteoarthritis Sleep apnea Elevated cholesterol Bipolar 1 disorder RLS (restless legs syndrome) Asthma HTN (hypertension) Pulmonary embolism Peripheral neuropathy Diabetes Spondylolisthesis, lumbar region Surgical History Status post debridement (08/23/23) History of spinal surgery (05/31/23) History of Pamela-en-Y gastric bypass (~03/2023) Hx of exploratory laparotomy (06/03/23) H/O colonoscopy History of total right knee replacement Hx of tonsillectomy Hx of tubal ligation Hx of hysterectomy History of sleeve gastrectomy Social History Household Members: Spouse Housing: Apartment Are you a primary care center manager to a significant other at home: No Do you presently have visiting nurse or other home services: Yes Comment: aware of trip hazard Patient Tobacco Use Status: Never used Tobacco Second Hand Smoke Exposure: No service: No Review of Systems Const All systems reviewed & are unremarkable except as noted in HPI and below Denies chills, Reports malaise and Reports poor appetite GI Reports abdominal pain, Reports melena, Denies hematochezia, Denies constipation, Reports diarrhea, Denies nausea and Denies vomiting Musc Reports abnormal gait and Reports back pain Neuro Reports abnormal gait Physical Exam Vital Signs: Last Vital Signs Pulse 62 04/07/24 11:30 BP 114/68 04/07/24 11:30 BMI result Body Mass Index 25.0 Const General: no acute distress Nutritional Appearance: average body habitus Orientation/consciousness: patient oriented x3 Limitations: no limitations HEENT Head: Yes normocephalic and Yes atraumatic Resp Effort & Inspection: normal respiratory effort, no audible wheezes, no cough and no respiratory distress GI Other: Well-healed midline incision without redness or discharge. No palpable mass, no hernia. Inspection: Yes normal to inspection Palpation (GI): Soft to palpation, Tenderness to palpation present (GI) in the epigastrum; Baum's sign negative and with no rebound tenderness, no guarding and not rigid Percussion: Yes normal to percussion Auscultation: normal bowel sounds Rectal Exam - Female: deferred Skin General skin exam: no rashes or lesions noted Neuro General: patient oriented x3 Assessment & Plan Assessment & Plan (1) Bowel perforation: Code(s): K63.1 - Perforation of intestine (nontraumatic) Category: Medical (2) Abdominal pain, right upper quadrant: Code(s): R10.11 - Right upper quadrant pain Category: Medical Plan 63-year-old female patient returning for evaluation of upper abdominal pain and dark tarry stools. Patient's most recent H&H was not anemic. She was recently evaluated at [facility] and discharged. She reports a previous CT scan in the hospital however no report could be identified. Patient has had a history of a perforated Pamela-en-Y with peritonitis and certainly would be at risk for further ulceration due to her gastric bypass surgery. I recommended further evaluation with CT abdomen and pelvis. She will return following the study to review the results and discuss treatment options. Orders: Orders CT abdomen pelvis w IV con Today K63.1 - Perforation of intestine (nontraumatic), K92.1 - Melena, R10.11 - Right upper quadrant pain Coding Level of Care Code Est Pt Level 4 (04052) Diagnoses Bowel perforation K63.1 Abdominal pain, right upper quadrant R10.11
[2024-04-07 11:30] VITALS: BP 114/68; PULSE 62; BMI 25.0
--- OUTSIDE RECORDS SUMMARY | 2024-04-07 13:21 | XMS_ITS | Data Portability ---
Author Organization [employer] [employer] Address [address] [place] [phone] Care Team Providers Care Emergency Registrar Name Role Phone VANDANA DIETRICH Primary Care Provide r HIM CCA OTHER Assessment Encounter Date Assessment Date Assessment LastModified by Organization Details LastModified Time 03/18/2022 03/18/2022 I have reviewed and agree with the assessment and plan as documented by the process designer. I provided real-time medical direction for this encounter and was immediately available to provide additional phone-based assistance as needed. HPI per process designer note. Patient went to the ED and received a diagnosis question bronchitis. Was sent home on steroids and completed course yesterday. Went back to the emergency department and left without being seen. Calls today with continued cough. Lung sounds per process designer are completely clear. Given a nebulizer treatment and stated she felt better. She has underlying reactive airway disease and is on inhalers. She is adherent to use of inhalers. Her pulse ox is 99% on room air. Given her clear lung sounds as well as reassuring exam and vital signs will prescribe cough suppressant. Of sent a prescription for Mucinex and Robitussin to [facility] in [facility]. she has been ordered a nebulizer machine which should arrive in the next 48 hours. Encouraged her to continue use of MDI as scheduled. Not available 03/18/2022 16:27:30 10/12/2023 10/12/2023 As noted, we were called to see this patient regarding concerns of abdominal pain. Evaluation in the field was performed by my process designer colleague, as noted above, I provided real-time direction and supervision for this visit. 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 Pt has had chronic mark-umbilical drainage since surgery in may. today developed some sharp pain in the lower abdomen, just above the pubic symphysis. no fever/chills, eating and drinking well, no urinary symptoms and normal bowel movements Impression: abd pain, uncertain cause, no records of abdominal surgery early september. Plan: Pt is pretty adamant that she does not want to go to the ED for imaging today. vss, no lab abnormalities and nl urinalysis. I think she is ok to follow up with her surgeon on wednesday. can take her scheduled percocet tonight Disposition: We discussed the diagnostic uncertainty of home visits and the risk associated with this. In this case, the patient and I felt this to be an acceptable and reasonable amount of risk given the benefit of avoiding an ED visit. We discussed the need to seek care urgently/emergen tly in the setting of any new or worsening serious symptoms, particularly worsening abd pain or fever [id number] Not available 10/12/2023 21:13:20 11/15/2023 11/15/2023 63 yo F with chronic low back pain is s/p recent mechanical fall with headstrike (on soft couch cushion, no LOC) with acute on chronic low back and right leg pain. Pt takes aspirin but no anticoagulants. Her PATIENT REGISTRATION CLERK requested this eval. Pt states that she takes percocet chronically for pain and has been using a heating pad on the new area of soreness. She has an intolerance to ibuprofen. VS wnl. When asked how we can help, pt states, I don't know why my PATIENT REGISTRATION CLERK called, I am fine . Instructed to continue self management of pain as she is doing. Advised to call PCP and would consider PT referral if no improvement in 2-4 weeks. Not available 11/15/2023 23:06:38 03/08/2024 03/08/2024 I provided real -time medical direction via phone for this encounter and was available for additional phone-based assistance as needed. I have reviewed and agree with the Assessment and Plan as documented by the Packing Floor Worker. Patient given the opportunity to ask questions. Our service contacted for an assessment of: Hypoglycemia As per above, patient with recurrent hypoglycemia specifically over the past 24 to 48 hours. Needs to have adjustments to medication regimen however current medication resulting in recurrent hypoglycemia. Patient aware of symptoms. Good p.o. intake. Unable to avoid hypoglycemic episodes related to p.o. intake of sugar. Per process designer on the scene, vital signs are stable however blood glucoses low on check. Patient is symptomatic. Impression: Hypoglycemia and polypharmacy with medications to control diabetes mellitus Plan: Expect call made to ED Allergies: Reviewed Not available 03/08/2024 22:10:11 Plan of Treatment Reminders Order Date Submit Date Provider Last Modified By Organization Details Last Modified Time Details Appointments None recorded. Lab BMP, serum or plasma 2024 025 KYRIE [facility], [address] [place] [address], [phone], 5 08:05:32 urinalysis, dipstick 2023 024 [email or web address] [facility], [address] [place] [address], [phone], 4 21:15:41 BMP, serum or plasma 2023 024 [email or web address] [facility], [address] [place] [address], [phone], 4 21:15:45 hemoglobin + hematocrit, blood 2023 024 [id number] [facility], [address] [place] [address], [phone], 4 21:15:49 Referral None recorded. Procedures None recorded. Surgeries None recorded. Imaging None recorded. Medication Orders Mucinex 600 mg tablet, extended release 2022 023 [facility] #[id number], [address], [place], [phone], 3 16:31:17 Robitussin Cough-Chest Congestion DM 5 mg-100 mg/5 mL oral liquid 2022 023 [facility] #[id number], [address], [place], [place], [id number], 3 16:31:15 ondansetron 4 mg disintegrat ing tablet 2021 KYRIE [facility] #10604, [address] [place], [place], [id number], 17:47:39 ondansetron 4 mg disintegrat ing tablet [address] [facility]63861, [address] [place], [place], [id number], 17:47:32 Maalox Advanced 200 mg-200 mg-20 mg/5 mL oral suspension [address] [facility]02281, [address] [place], [place], [id number], 20:06:27 Patient TargetsNo targets recorded. Patient InstructionsNo instructions recorded. Reason for Referral None Reported. Results Created Date Observation Date Name Description Value Unit Range Abnormal Flag Note LastModifiedBy Organization Detail LastModifiedTime Result Notes None recorded. Medical Equipment None Reported. Allergies Allergen ID Allergen Name Allergen Category Reaction Reaction Severity Criticality Documentation Date Start Date Code Code System Note Provider Name and Address Organization Details Recorded Time 8490 glucagon (rDNA) medicatio n Not available Not available Not available 12/07/2023 91871 6 RxNorm Not Available [facility] - [facility] 4 03:44:39 8491 ibuprofen medicatio n Not available Not available Not available 12/07/2023 5640 RxNorm Not Available [facility] - production 4 03:44:39 Medications Name Sig Start Date Stop Date Status Note LastModified by Organization Details LastModified Time senna tab 8.6mg active Not Available Not Available Not Available arthrts pain tab 650mg active Not Available Not Available No t Available arthritis pain reliever 650mg tabs TAKE 1 TABLET BY MOUTH EVERY 8 HOURS NEEDED FOR PAIN active Not Available Not Available No t Available senna tablets TAKE 1 TABLET BY MOUTH AT BEDTIME active Not Available Not Available No t Available quetiapine 25 mg tablet TAKE 1 TABLET BY MOUTH TWICE DAILY AND 1 EXTRA TABLET NEEDED FOR ANXIETY active Not Available Not Available No t Available cyclobenzapr ine 10 mg tablet TAKE 1 TABLET BY MOUTH TWICE DAILY TO THREE TIMES DAILY FOR PAIN OR SPASM active Not Available Not Available No t Available furosemide 40 mg tablet TAKE 1/2 TABLET BY MOUTH EVERY DAY active Not Available Not Available No t Available atorvastatin 40 mg tablet TAKE 1 TABLET BY MOUTH DAILY active Not Available Not Available Not Available oxcarbazepin e 150 mg tablet TAKE 1 TABLET BY MOUTH TWICE DAILY active Not Available Not Available No t Available cyanocobalam in (vit B-12) 100 mcg tablet TAKE 1 TABLET BY MOUTH EVERY DAY active Not Available Not Available No t Available albuterol sulfate 2.5 mg/3 mL (0.083 %) solution for nebulization INHALE 3ML BY MOUTH VIA NEBULIZER EVERY 6 HOURS NEEDED FOR WHEEZING active Not Available Not Available No t Available azithromycin 250 mg tablet TAKE 2 TABLETS BY MOUTH FOR 1 DAY THEN TAKE 1 TABLET BY MOUTH DAILY DIRECTED active Not Available Not Available Not Available senna 8.6 mg tablet TAKE 1 TABLET BY MOUTH AT BEDTIME active Not Available Not Available No t Available FreeStyle Lancets 28 gauge USE TO TEST BLOOD SUGAR TWICE DAILY active Not Available Not Available Not Available ondansetron HCl 4 mg tablet TAKE 1 TO 2 TABLETS BY MOUTH EVERY 8 HOURS NEEDED FOR NAUSEA active Not Available Not Available No t Available prednisone 20 mg tablet TAKE 2 TABLETS BY MOUTH EVERY DAY FOR 3 DAYS active Not Available Not Available No t Available clonazepam 0.5 mg tablet TAKE 1 TABLET BY MOUTH EVERY MORNING AND 3 TABLETS BY MOUTH EVERY NIGHT AT BEDTIME active Not Available Not Available N ot Available clonazepam 1 mg tablet TAKE 1/2 TABLET BY MOUTH EVERY MORNING AND 1 AND 1/2 TABLET BY MOUTH AT BEDTIME active Not Available Not Available No t Available hydroxyzine HCl 50 mg tablet TAKE 1 TO 2 TABLETS BY MOUTH AT BEDTIME NEEDED active Not Available Not Available No t Available aspirin 81 mg tablet,delay ed release TAKE 1 TABLET BY MOUTH EVERY DAY active Not Available Not Available No t Available acetaminophe n 500 mg tablet TAKE 1 TABLET BY MOUTH EVERY 6 HOURS FOR 10 DAYS NEEDED FOR PAIN active Not Available Not Available No t Available bupropion HCl SR 100 mg tablet,12 hr sustained-re lease TAKE 1 TABLET BY MOUTH EVERY MORNING active Not Available Not Available No t Available butalbital-a cetaminophen -caffeine 50 mg-325 mg-40 mg tablet TAKE 1 TABLET BY MOUTH EVERY 4 HOURS NEEDED FOR PAIN active Not Available Not Available No t Available lithium carbonate ER 450 mg tablet,exten ded release TAKE 1 TABLET BY MOUTH AT BEDTIME active Not Available Not Available No t Available oxycodone-ac etaminophen 5 mg-325 mg tablet TAKE 1 TABLET BY MOUTH FOUR TIMES DAILY active Not Available Not Available Not Available lorazepam 0.5 mg tablet TAKE 1 TABLET BY MOUTH FOUR TIMES DAILY active Not Available Not Available Not Available gabapentin 800 mg tablet TAKE 1 TABLET BY MOUTH TWICE DAILY active Not Available Not Available No t Available trazodone 100 mg tablet TAKE 3 TABLET BY MOUTH AT BEDTIME active Not Available Not Available No t Available dexamethason e 4 mg tablet TAKE 1 TABLET BY MOUTH TWICE DAILY active Not Available Not Available No t Available docusate sodium 100 mg capsule TAKE 1 CAPSULE BY MOUTH TWICE DAILY active Not Available Not Available No t Available pramipexole 0.25 mg tablet TAKE 1 TABLET BY MOUTH DAILY active Not Available Not Available Not Available gabapentin 300 mg capsule TAKE 2 CAPSULES BY MOUTH THREE TIMES A DAY active Not Available Not Available Not Available codeine 10 mg-guaifenes in 100 mg/5 mL oral liquid TAKE 5 ML BY MOUTH THREE TIMES DAILY FOR UP TO 10 DAYS NEEDED FOR COUGH active Not Available Not Available No t Available metoprolol succinate ER 25 mg tablet,exten ded release 24 hr TAKE 1 TABLET BY MOUTH DAILY active Not Available Not Available Not Available lorazepam 1 mg tablet TAKE 1 TABLET BY MOUTH TWICE DAILY active Not Available Not Available No t Available albuterol sulfate HFA 90 mcg/actuatio n aerosol inhaler INHALE 2 PUFFS BY MOUTH AND INTO THE LUNGS EVERY 6 HOURS NEEDED FOR WHEEZING AND SHORTNESS OF BREATH active Not Available Not Available No t Available Vitamin B-1 100 mg tablet TAKE 1 TABLET BY MOUTH EVERY DAY active Not Available Not Available No t Available ondansetron 4 mg disintegrati ng tablet DISSOLVE 1 TABLET ON THE TONGUE THREE TIMES DAILY active Not Available Not Available No t Available topiramate 100 mg tablet TAKE 1 TABLET BY MOUTH TWICE DAILY active Not Available Not Available No t Available fluticasone propionate 50 mcg/actuatio n nasal spray,suspen alfredo SHAKE LIQUID AND USE 2 SPRAYS IN EACH NOSTRIL DAILY active Not Available Not Available No t Available dicyclomine 10 mg capsule TAKE 1 CAPSULE BY MOUTH FOUR TIMES DAILY BEFORE MEALS AND AT NIGHT FOR 14 DAYS active Not Available Not Available Not Available oxycodone 5 mg tablet TAKE 1 TABLET BY MOUTH EVERY 6 HOURS NEEDED FOR SEVERE PAIN; DO NOT TAKE WITH PERCOCET active Not Available Not Available No t Available Stomach Relief 262 mg/15 mL oral suspension TAKE 30 ML BY MOUTH EVERY HOUR NEEDED FOR DIARRHEA FOR 7 DAYS active Not Available Not Available N ot Available Mapap Arthritis Pain 650 mg tablet,exten ded release TAKE 1 TABLET BY MOUTH EVERY 8 HOURS NEEDED FOR PAIN active Not Available Not Available No t Available Mucinex 600 mg tablet, extended release Take 1 tablet every 12 hours by oral route for 5 days. 2022 active Not Available Not Available Not Avai lable Novolog FlexPen U-100 Insulin aspart 100 unit/mL (3 mL) subcutaneous USE PER SLIDING SCALE PRIOR TO BREAKFAST AND DINNER UP TO 24 UNITS MAX DOSE PER MEAL active Not Available Not Available No t Available cyclobenzapr ine 5 mg tablet TAKE 1 TABLET BY MOUTH THREE TIMES DAILY NEEDED FOR MUSCLE SPASMS active Not Available Not Available No t Available escitalopram 5 mg tablet TAKE 1 TABLET BY MOUTH DAILY active Not Available Not Available Not Available pregabalin 150 mg capsule TAKE 1 CAPSULE BY MOUTH TWICE DAILY active Not Available Not Available No t Available pregabalin 200 mg capsule TAKE 1 CAPSULE BY MOUTH TWICE DAILY active Not Available Not Available No t Available Symbicort 160 mcg-4.5 mcg/actuatio n HFA aerosol inhaler INHALE 2 PUFFS INTO THE LUNGS TWICE DAILY active Not Available Not Available Not Available FreeStyle Lite Meter kit DIRECTED TEST SUGAR TWICE DAILY active Not Available Not Available Not Available FreeStyle Lite Strips USE TO TEST BLOOD SUGARS TWICE DAILY active Not Available Not Available Not Available Lantus Solostar U-100 Insulin 100 unit/mL (3 mL) subcutaneous pen ADMINISTER 30 UNITS UNDER THE SKIN AT BEDTIME active Not Available Not Available No t Available diclofenac 1 % topical gel APPLY TWICE DAILY TOPICALLY active Not Available Not Available No t Available cholecalcife rol (vitamin D3) 50 mcg (2,000 unit) capsule TAKE 1 CAPSULE BY MOUTH EVERY DAY active Not Available Not Available No t Available Maalox Advanced 200 mg-200 mg-20 mg/5 mL oral suspension Take 5 mL by oral route for 1 day. 2021 active Not Available Not Available Not Avai lable cholecalcife rol (vitamin D3) 50 mcg (2,000 unit) tablet TAKE 1 TABLET BY MOUTH DAILY active Not Available Not Available Not Available dexlansopraz ole 30 mg capsule,biph ase delayed release TAKE 1 CAPSULE BY MOUTH DAILY active Not Available Not Available Not Available Latuda 80 mg tablet active Not Available Not Available Not Available Latuda 120 mg tablet TAKE 1 TABLET BY MOUTH 1 TIME EVERY DAY active Not Available Not Available No t Available Latuda 60 mg tablet active Not Available Not Available Not Available Trulicity 0.75 mg/0.5 mL subcutaneous pen injector ADMINISTER 0.75 MG UNDER THE SKIN EVERY 7 DAYS active Not Available Not Available No t Available melatonin 10 mg-lemon balm leaf extract 1 mg tablet TAKE 1 TABLET BY MOUTH EVERY NIGHT AT BEDTIME active Not Available Not Available No t Available Trintellix 10 mg tablet TAKE 1 TABLET BY MOUTH DAILY active Not Available Not Available Not Available Robitussin Cough-Chest Congestion DM 5 mg-100 mg/5 mL oral liquid Take 5 mL 4 times a day by oral route as needed for 5 days. 2022 active Not Available Not Available Not Avai [email or web address] [email or web address] COVID-19 Ag Self Test kit USE DIRECTED ON PACKAGE active Not Available Not Available No t Available Vitals Date Recorded Oxygen saturation Oxygen saturation in Arterial blood by Pulse oximetry Heart rate Body temperature Respiratory rate Systolic blood pressure Diastolic blood pressure Provider Name and Address Organization Details Last Updated DateTime 2 98 % 98 % 62 /min 98.7 [degF] 18 /min 143 mm[Hg] 93 mm[Hg] Not Available [facility] 2 17:43:25 Date Recorded Body weight Body height Body temperature Oxygen saturation Oxygen saturation in Arterial blood by Pulse oximetry Respiratory rate Heart rate Systolic blood pressure Diastolic blood pressure Provider Name and Address Organization Details Last Updated DateTime 4 79004.7 2 g 165.1 cm 97.4 [degF] 97 % 97 % 16 /min 66 /min 134 mm[Hg] 85 mm[Hg] Not Available [facility] 4 19:38:53 Date Recorded Heart rate Respiratory rate Body temperature Oxygen saturation Oxygen saturation in Arterial blood by Pulse oximetry Systolic blood pressure Diastolic blood pressure Provider Name and Address Organization Details Last Updated DateTime 4 59 /min 16 /min 98.1 [degF] 99 % 99 % 118 mm[Hg] 62 mm[Hg] Not Available [facility] 4 20:14:13 Date Recorded Respiratory rate Body temperature Oxygen saturation Oxygen saturation in Arterial blood by Pulse oximetry Heart rate Systolic blood pressure Diastolic blood pressure Provider Name and Address Organization Details Last Updated DateTime 5 98 /min 98.2 [degF] 16 % 16 % 73 /min 132 mm[Hg] 80 mm[Hg] Not Available [facility] 5 22:03:27 Date Recorded Body temperature Heart rate Oxygen saturation Oxygen saturation in Arterial blood by Pulse oximetry Respiratory rate Body weight Systolic blood pressure Diastolic blood pressure Provider Name and Address Organization Details Last Updated DateTime 3 97.7 [degF] 72 /min 97 % 97 % 20 /min 53610.2 4 g 141 mm[Hg] 92 mm[Hg] Not Available [facility] 3 16:23:52 Social History None recorded. Functional Status None recorded. Mental Status None recorded. Family History Nothing Reported. Medical History No medical history recorded. Gynecological HistoryNo gynecological history recorded. Obstetrics History GPAL:G 0 P 0 0 0 0 Past Encounters Encounter ID Performer Location Encounter Start Date Encounter Closed Date Diagnosis/Indication Diagnosis SNOMED-CT Code Diagnosis ICD10 Code Diagnosis Note [id number] Moraima Man MD [facility] [address] [place] [phone] 07/30/2021 17:43:23 10/07/2021 15:24:09 Gastroenteritis 73250204 K52.9 60 year old female being evaluated for nausea and abdominal pain for the last few days. Per data gathered by process designer, patient with normal vital signs, tolerating some PO fluids, had diarrhea that is now resolved, but ongoing nausea. Seen in ED 3 days ago, advised that has gastroente ritis. No evidence of dehydratio n on today's assessment , ongoing epigastric pain likely related to dyspepsia and gastritis due to prior nausea/vom iting that is incomplete ly resolved but overall is improving. Continue pepto-bism ol prn, trial maalox and zofran given today with rx sent to pharmacy for ongoing symptom control. [id number] Nneka Piedra MD [facility] [address] [place] [phone] 03/18/2022 16:23:47 03/20/2022 09:58:36 Cough 41500247 R05.9 [id number] Reza Gonzalez MD [facility] [address] [place] [phone] 10/12/2023 19:38:47 10/12/2023 22:56:56 Abdominal pain 12989527 R10.9 predominan tly suprapubic , unclear cause, urine dip and labs unremarkab le. should follow up with general surgery on wednesday to discuss the need for imaging. [id number] DAMARIS CULVER MD [facility] [address] [place] [phone] 11/15/2023 20:14:08 11/15/2023 23:41:56 Low back pain 753646044 M54.50 [id number] Nneka Piedra MD [facility] [address] [place] [phone] 03/08/2024 22:03:26 03/08/2024 23:59:53 Hypoglycemia 050451641 E16.2 Health Concerns Section Related Observation LastModified by Organization Detai ls LastModified Time None Recorded Concern Status LastModified by Organization Details LastModified Time None Recorded Advance Directives Directive None Recorded Payers Encounter Date Sequence Insurance Name Policy Number Policy Tenorio Covered Member ID Tenorio Member ID Guarantor Name 07/30/2021 1 [facility] - DOS PRIOR TO 2022 - DUAL ELIGIBLE (MEDICARE REPLACEMENT/AD VANTAGE - HMO) Claudette Stapleton [id number] Claudette Stapleton 03/18/2022 1 [employer] - DOS PRIOR TO 2022 - DUAL ELIGIBLE (MEDICARE REPLACEMENT/AD VANTAGE - HMO) Claudette Stapleton [id number] Claudette Stapleton 10/12/2023 1 [employer] - DOS ON OR AFTER 2022 - DUAL ELIGIBLE - [employer] OPT[employer] AND ONE CARE (MEDICARE REPLACEMENT/AD VANTAGE - HMO) Claudette Stapleton [id number] Claudette Stapleton 11/15/2023 1 [facility] - DOS ON OR AFTER 2022 - DUAL ELIGIBLE - [employer] OPTIONS AND ONE CARE (MEDICARE REPLACEMENT/AD VANTAGE - HMO) Claudette Stapleton [id number] Claudette Stapleton 03/08/2024 1 [facility] - DOS ON OR AFTER 2022 - DUAL ELIGIBLE - [employer] OPTIONS AND ONE CARE (MEDICARE REPLACEMENT/AD VANTAGE - HMO) Claudette Stapleton [id number] Claudette Stapleton Notes Date Note Type Note Provider Name and Address Organization Details Recorded Time 07/30/2021 text/html CRC Nursing Assessment: Reason For Request: Abdominal Pain Patient Reports: Vague abdominal pain greater than 24 hours; Nausea with or without vomiting Denies: Constipation Diarrhea ? no blood in stool Inability to tolerate foods, fluids or daily medications Chief Complaints: Abdominal Pain, Gastroenteritis PMH: Diabetes, Hypertension Allergies: Unknown Comments: Referral placed by [facility]. Member is complaining of abdominal pain radiating up in to chest. Reports vomiting twice today, and pain going to her back and to her left arm. Member was just in the ED and diagnosed with Gastroenteritis, cardiac issues ruled out, no meds were ordered. Member states she cannot get ahold of her PCP. This casualty underwriter called to further triage member, there was no answer. ..................... ..................... ..................... ..................... ..................... ..................... ............... Packing Floor Worker Note: Pt diagnosed with viral gastroenteritis 3 days ago in ED. Pt states she still has pain and nausea. Pt states her pain is sub eternal and into her lower left abd. Abd soft non tender. [facility] contacted. Pt advised to take Maalox for pain and discomfort. Pt given 4mg ODT zofran and script for more called in by [facility]. Pt education on viral vs bacterial infections. Red flags discussed. ..................... ..................... ..................... ..................... ..................... ..................... ............... Disposition: Fulfilled Moraima Man MD [address] [facility],[address], [place], [phone], [facility] 07/30/2021 20:06:59 03/18/2022 text/html HPI: Member recently admitted to [facility] for Chest Pain and SOB, workup in the hospital was negative for any cardiac issues. she was discharged home on prednisone 20mg, 2 tabs for 3 days. completed prednisone yesterday and still have SOB with minimal exertion. She was also given nebulizer but does not have the machine. She went to the ED yesterday and left AMA. She doesnt want to go the ED; she reports doing better today than yesterday. She does have some heavy breathing, chest congestion, cough and back pain. tested negative for covid yesterday. no fever or chills. ..................... ..................... ..................... ..................... ..................... ..................... ............... CRC Nursing Assessment: Comments: CRC RN DID NOT NEED FURTHER INFO< SDONNER ..................... ..................... ..................... ..................... ..................... ..................... ............... Packing Floor Worker Note From [employer] [facility]: nts A@4. Pt C/o SOB with productive cough. Yellow sputum Lungs clear SPO2 98% Pt denies CP n/v/d/f Pt went to ED 3 days prior and was giving course of prednisone 20mg which she finished .Pt waitng on home nebulizer to arrive. Pt requested duo neb treatment. [facility] [place] contacted and over the counter musinex and robitussin called into pharmacy. Pt eduacated on warning signs that would indicate ED and to follow up with her PCP Packing Floor Worker Allergies: Glucagon, Ibuprofen ..................... ..................... ..................... ..................... ..................... ..................... ............... Disposition: Fulfilled Nneka Piedra MD [address] [place] [address],[address], [place], [phone], [employer] 03/18/2022 16:32:53 10/12/2023 text/html HPI: Patient reporting intermittent stabbing lower abd pain today. Rates 07/18. Recent abdominal surgery for cyst removal. Discharged on 09/09. Hospitalized after surgery for sepsis. LBM yesterday. Denies fever/chills or N/V. No urinary symptoms reported. ..................... ..................... ..................... ..................... ..................... ..................... ............... 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 [employer] Legal Name: [facility] Address: [address] [place] [address] Painter Bottom: Brett Amaya MD CLIA No.: [id number] Packing Floor Worker POC Test Results from [facility] (19:45:57) pH: 7.44 pH units pCO2: 43.9 mmHg pO2: 33.9 mmHg Na: 142 mmol/L K: 3.6 mmol/L iCa: 1.22 mmol/L Cl: 103 mmol/L TCO2: 30.1 mEq/L Hct: 41 % Hb: 14 g/dL Glu: 101 mg/dL Lac: 1.1 mmol/L Cr: 0.9 mg/dL BUN: 11 mg/dL A Urine Dipstick (19:46:00) Urine leukocytes: - CYNDI Urine nitrites: - NIT Urine urobilinogen: - URO Urine protein: - PRO Urine pH: 5.0 pH Urine blood: - BLO Urine specific gravity: 1.010 SG Urine ketones: - KET Urine bilirubin: - MARSHA Urine glucose: - GLU ..................... ..................... ..................... ..................... ..................... ..................... ............... Packing Floor Worker Note From [employer]: Pt reporting intermittent suprapubic ABD pain since early this afternoon. Pt had multiple surgeries in May 2023 and has had drainage from her naval since. Pt denies increased drainage, CP, SOB, LOFTON, f/n/v/d. Pt has surgeon appt on Wednesday. Pt is alert, NAD. VSS. Afebrile. Non focal neuro exam. Normal gait. Lungs CTA. ABD is non distended, mild suprapubic discomfort on palpation. No CVA tenderness. No LE edema. Unremarkable POC labs. Unremarkable UA. Pt advised to monitor sx, take oxycodone and tylenol as prescribed and to discuss sx with surgeon on Wednesday. Red flags reviewed. Packing Floor Worker Allergies: Glucagon, Ibuprofen ..................... ..................... ..................... ..................... ..................... ..................... ............... Disposition: Fulfilled Reza Gonzalez MD [address] [place] [address],[address], [place], [phone], [employer] 10/12/2023 21:16:07 11/15/2023 text/html CRC Nurse Triage Notes (Amanda Ramsey): Reason For Request: Pt's VNA reporting a fall from yesterday afternoon, backwards, and thinks she might have hit her head on a couch cushion, potential spraning of sciatica area Chief Complaints: Falls PMH: Diabetes, Hypertension, COPD/Asthma Allergies: Glucagon, Ibuprofen Comments: Patients VNA calling in to place a referral, patient identified via name and . PMHx- falls, DM, HTN and asthma. ALLERGIES- IBU and glucagon. Patient has been unsteady per VNA. Patient had a fall yesterday, falling back into her couch cushion, +head strike on the cushion, no swelling or bruising, she denies headache or dizziness, no LOC, does take a baby ASA. Patients main concern is her lower back, feels like she may have sprained her back. She is having no relief of pain with heat or APAP. She would like to be evaluated. ..................... ..................... ..................... ..................... ..................... ..................... ............... Packing Floor Worker Note From Cristian Wang: Dispatched to the call address for the female that fell. Pt advises that she fell yesterday after she tripped. She landed on her back side with her right side taking most of the fall and her head hit the cushion of the couch. Pt denies LOC, dizziness, vision changes, light sensitivity, chest pain or difficulty breathing. Pt states she is not sure why her PATIENT REGISTRATION CLERK called as she only has lower back/right leg pain but has back pain chronically. She advises she is allergic to Ibuprofen but takes Percocet for her chronic back pain and it helps with the pain from this fall. She also has been using a heating pad with good effect. Pt was found sitting on living room chair, CAOx4, airway open and patent, breathing non labored, able to speak in full sentences, -JVD, -HEENT, skin PWD with good turgor, abd soft non tender/distended, pupils PERRL, mucous membranes pink and moist, -EDEMA, -bruising/swelling or obvious deformities in affected area. [facility] consulted. Red flags discussed. ALL times are approx. ..................... ..................... ..................... ..................... ..................... ..................... ............... Disposition: Fulfilled DAMARIS CULVER MD [address] [facility],[address], [place], [address], [employer] 11/15/2023 23:06:50 03/08/2024 text/html CRC Nurse Triage Notes (Kanchan Dotson - RN): Patient Reports: Difficult to control blood sugars Denies: Elevated blood sugar over 500 Acute Cardiac pain Nausea/Vomiting greater than 8 hours Decreased LOC and lethargy Fever unable to tolerate oral fluids or foods Cold/Flu-like symptoms Increased fatigue, headache Decreased oral intake Difficulty moving bowels Increased/painful urination s/s of infection after a wound Chief Complaints: Diabetes-related PMH: Hypertension, COPD/Asthma, Diabetes Mellitus Type 2 PMH Reviewed at 03/08/2024 - :37 Allergies Reviewed at 03/08/2024 - :37 Comments: Christian Education Director verified the name//address and phone number. Pt had Blood sugar today at 53, she had some candy and went to sleep. She woke up and her blood sugar was 130's. She took her insulin and he sugar is now in the 70's and she has some food. She has had some shakiness and increased urination. she has had water soup and chicken. She does not have any glucose tabs in the home. She took Novolog 3 units . She is scared that her sugar will drop again and it is not her baseline . 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 Address: [address] [place] [address], [place] [address], Painter Bottom: Madan ALBERT No.: [id number] Packing Floor Worker POC Test Results from Cristian Wang - [facility] Blood Glucose Measurement (20:22:04) Blood Glucose: 53 mg/dL Blood Glucose Measurement (20:26:33) Blood Glucose: 66 mg/dL ..................... ..................... ..................... ..................... ..................... ..................... ............... Packing Floor Worker Note From Cristian Wang: Dispatched to the call address for the female with a blood sugar issue. Per the notes, Pts blood sugar has been dropping today which is not typical for her. Note indicated that Pt is symptomatic and she does not have glucose tabs in the home . Pt stated her blood sugar was 53 and she was feeling shaky, she ate some candy and took a nap. When she woke up it was in the 130s, she took 3 units (she says she is positive it was only 3) of insulin and ate dinner and it was then in the 70s. She advised that she has eaten normally today. Pts let me into the home. Pt was found sleeping on the couch in the supine position, very difficult to arouse. Pt had to be sternal rubbed. Pt initially confused as to what was going on and was shaky and advised she was really dizzy. [facility] [place] advised of the situation quickly while I gave the Pt a tube of oral glucose as her POC blood glucose was 53. Pts pushed their life alert button and asked for help while I took vitals and started an IV (18g L AC). Pt finished oral glucose and rechecked her blood sugar (66)-still shaky but less dizzy. [facility] ([facility]) arrived. Pt transfer of care and report given without issue. ALL times are approx. ..................... ..................... ..................... ..................... ..................... ..................... ............... [facility] [place] Consulted: Nneka Piedra ..................... ..................... ..................... ..................... ..................... ..................... ............... Disposition: Fulfilled Nneka Piedra MD [address] [facility],[address], [place], [address], [employer] [facility] [employer] 03/08/2024 22:10:40 OBGyn Episode No OBEpisode recorded.
--- OUTSIDE RECORDS SUMMARY | 2024-04-07 13:21 | XMS_ITS | Encounter Summary ---
Author Organization [facility] Address [address] [place] [address] Care Team Providers Care [employer] Tech Name Role Phone Kat Nevarez MD Primary Care Prov ider Reason for Visit * Reason Comments Hypoglycemia Encounter Details Date Type Department Care Team (Late st Contact Info) Description 03/11/2024 6:45 PM EST - 03/12/2024 4:56 AM EST [facility] Emergency [address] [place] [id number] Yvon Dupont MD [address] [place] [address] Hypoglycemia (Primary Dx); Acute abdominal pain; Type 2 diabetes mellitus without complication, with long-term current use of insulin ([facility]) Discharge Disposition: Home or Self Care Social History Tobacco Use Types Packs/Day Years Used Date Smoking Tobacco: Never Smokeless Tobacco: Never Alcohol Use Standard Drinks/Week Comments No 0 (1 standard drink = 0.6 oz pure alcohol) Quit drinking 1 year ago, history of ETOH abuse Housing Instability Answer Date Recorde d Are you worried that in the next 2 months you may not have stable housing? No 12/29/2023 Food Access & Nutrition Answer Date Rec orded Do you have access to a vari ety of food including fruits and vegetables? Yes 12/29/2023 Health Literacy Answer Date Recorded How often do you need to hav e someone help you when you read instructions, pamphlets, or other written material from your doctor or pharmacy? Rarely 12/29/2023 Caregiver: How often do you need to have someone help you when you read instructions, pamphlets, or other written material from your doctor or pharmacy? Not on file 12/29/2023 Financial Risk Answer Date Recorded How hard is it for you to pa y for the very basics like food, housing, medical care, and air conditioning / heating? Not very hard 12/29/2023 Transportation Answer Date Recorded Has the lack of transportati on kept you from meetings, work, or from getting things needed for daily living? No Has the lack of transportati on kept you from medical appointments or from getting medications? No 12/29/2023 Social Isolation Answer Date Recorded How often do you feel lonely or isolated from th ose around you? Rarely 12/29/2023 Food Risk Answer Date Recorded Within the past 12 months we worried whether our food would run out before we got money to buy more. Never true 12/29/2023 Within the past 12 months th e food we bought just didn't last and we didn't have money to get more. Never true 12/29/2023 Dependent Care Answer Date Recorded Do you need help finding or paying for care for your loved ones. For example, child and family services worker or elderly care for an older adult? No 12/29/2023 Education Answer Date Recorded Do you think completing more education or training, like finishing a GED, going to college, or learning a trade, would be helpful for you? No 12/29/2023 Employment and Income Answer Date Recor ded During the last four weeks, have you been actively looking for work? No 12/29/2023 Living Situation Answer Date Recorded What is your living situation? 1 02/27/2023 Interpersonal Safety Answer Date Record ed Physical Abuse 12/28/2023 Verbal Abuse 12/28/2023 Comments No Sex and Gender Information Value Date Recorded Sex Assigned at Female 12/27/2023 3:22 PM EST Legal Sex Female 2:20 AM EST Gender Identity Female 12/27/2023 3:22 PM EST Sexual Orientation Straight 12/28/2023 6: 06 PM EST documented as of this encounter Last Filed Vital Signs Vital Sign Reading Time Taken Comments Blood Pressure 149/79 03/12/2024 1:23 AM EST Pulse 63 03/12/2024 1:23 AM EST Temperature 36.8 ??C (98.2 ??F) 03/12/2024 1:23 AM ES T Respiratory Rate 16 03/12/2024 1:23 AM EST Oxygen Saturation 98% 03/12/2024 1:23 AM EST Inhaled Oxygen Concentration - - Weight 70.3 kg (155 lb) 03/12/2024 1:23 AM EST Height 165.1 cm (5' 5 ) 03/12/2024 1:23 AM EST Body Mass Index 25.79 03/12/2024 1:23 AM EST documented in this encounter Functional Status * Are you deaf or do you have serious difficulty hearing? Answer Date of Assessment Author No 01/23/2024 1:04 AM EST Desiree Craven RN * Are you blind or do you have serious difficulty seeing, even when wearing glasses? Answer Date of Assessment Author No 01/23/2024 1:04 AM Desiree Gomez RN * Do you have serious difficulty walking or climbing stairs? Answer Date of Assessment Author No 01/23/2024 1:04 AM Desiree Gomez RN * Do you have serious difficulty dressing or bathing? Answer Date of Assessment Author No 01/23/2024 1:04 AM EST Desiree Craven RN * Because of a physical, mental, or emotional condition, do you have serious difficulty doing errandsalone such as visiting the doctor? Answer Date of Assessment Author No 01/23/2024 1:04 AM Desiree Gomez RN documented as of this encounter Mental Status * Because of a physical, mental, or emotional condition, do you have serious difficulty concentrating, remembering, or making decisions? (5 years old or older) Answer Entry Date Author No 01/23/2024 1:04 AM Desiree Gomez RN documented in this encounter Discharge Instructions * Discharge Instructions* DEBI Medel - 03/12/2024 4:23 AM EST You were seen here for complaint of low blood sugar or hypoglycemia. This is likely due to the factthat you gave yourself a large dose of insulin for a normal blood sugar reading. For blood sugars under 150, do not give yourself any insulin. It is likely that your needs have changed and he might require much less insulin than before. Follow-up with your primary care provider and they can developa new sliding scale for you. The next few days, follow the sliding scale for insulin Glucose 150-180 2 Units Glucose 180-220 4 units Glucose 221-260 6 units Glucose 261-300 8 units Glucose 301-350 10 units Glucose 351 - 400 12 units Glucose >400, call your provider Follow up with your primary care provider. Call during the next business day to schedule an appointment. Thank you for coming to the [facility] Emergency Department today. Our entire team works together to provide you with the best care possible. Examination and treatment you received in the emergency department has been rendered on an EMERGENCY basis only. It is not intended to be a substitute for or an effort to provide complete medical care. You should follow-up with your primary care provider. Please report to your physician any new or remaining problems, because it is impossible to recognize and treat all elements of injury or illness in a single emergency department visit. If you do not have a primary care provider or require a referral, a follow-up doctor religion professor for the emergency department will be provided in your discharge packet. In the event that you're unable to obtain a followup appointment in a timely fashion, OR you are not getting any better, OR you are getting worse, OR you develop any symptoms of concern, please return here immediately for further evaluation. The emergency department is open 24 hours a day, 7 days aweek. Your discharge report is based on information that was available when you were in the emergency department. The x-ray readings are preliminary and will be reviewed by a radiologist in the next 24 hours. If there is a discrepancy you will be notified by phone. * Attachments The following attachments cannot be sent through Care Everywhere. * Abdominal Pain (Chadian) * Hypoglycemia in Diabetes: General Info (Chadian) documented in this encounter Medications at Time of Discharge acetaminophen (TYLENOL 8 HOUR) 650 mg 8 hr tablet Take 1 tablet (650 mg total) by mouth every 8 (eight) hours if needed for headaches. for pain 30 tablet 2 01/03/2024 albuterol HFA (PROAIR HFA ; PROVENTIL HFA ; VENTOLIN HFA) 90 mcg/actuation inhaler Inhale 2 Puffs into the lungs every 6 hours as needed for Cough, Wheezing or Shortness of Breath. 03/29/2023 apixaban (Eliquis) 5 mg tablet Take 1 tablet (5 mg total) by mouth 2 (two) times a day. 180 each 1 01/03/2024 5 budesonide-formo teroL (Symbicort) 160-4.5 mcg/actuation inhaler Inhale 2 puffs by mouth 2 (two) times a day. 03/29/2023 cholecalciferol (VITAMIN D-3) 50 mcg (2,000 unit) capsule TAKE 1 CAPSULE BY MOUTH DAILY 90 capsule 02/17/2024 clonazePAM (KlonoPIN) 1 mg tablet TAKE 1 TABLET BY MOUTH THREE TIMES DAILY NEEDED FOR ANXIETY 84 tablet 2 03/10/2024 cyanocobalamin (VITAMIN B-12) 100 mcg tablet Take 0.5 tablets (50 mcg total) by mouth 1 (one) time each day. docusate sodium (COLACE) 100 mg capsule Take 1 capsule (100 mg total) by mouth 2 (two) times a day. FREESTYLE LANCETS MISC To test sugars bid 10/01/2021 FreeStyle Kalyan 3 Sensor deviceIndication s:Type 2 diabetes mellitus with diabetic neuropathy, with long-term current use of insulin ([facility]) Box = Kit = EACHANGE 1 DEVICE EVERY 14 DAYS 6 each 1 03/09/2024 furosemide (LASIX) 40 mg tablet Take 0.5 tablets (20 mg total) by mouth 1 (one) time each day. 45 each 1 01/11/2024 5 gabapentin (NEURONTIN) 800 mg tablet Take 1 tablet (800 mg total) by mouth 2 (two) times a day. 180 each 01/11/2024 5 glucose 4 gram chewable tablet Chew 4 tablets (16 g total) if needed for low blood sugar. 50 tablet 03/12/2024 6 melatonin 10 mg tablet Take 1 tablet (10 mg total) by mouth at bedtime. melatonin 10 mg-lemon balm leaf extract 1 mg tablet 90 tablet 1 01/03/2024 5 omeprazole (PriLOSEC) [address] capsule Take 1 capsule (20 mg total) by mouth 1 (one) time each day. 10/20/2023 5 pramipexole (MIRAPEX) 0.25 mg tablet TAKE 1 TABLET BY MOUTH DAILY 90 tablet 1 01/03/2024 senna (SENOKOT) 8.6 mg tablet Take 1 tablet (8.6 mg total) by mouth 1 (one) time each day. 90 each 1 01/03/2024 5 topiramate (TOPAMAX) 100 mg tablet Take 1 tablet (100 mg total) by mouth 2 (two) times a day. 05/14/2023 oxyCODONE-acetam inophen (PERCOCET) 5-325 mg per tablet Take 1 tablet by mouth 4 (four) times a day for 28 days. Max Daily Amount: 4 tablets 112 tablet 03/08/2024 5 amLODIPine (NORVASC) 5 mg tablet Take 1 tablet (5 mg total) by mouth 1 (one) time each day. 5 atorvastatin (LIPITOR) 40 mg tablet Take 1 tablet (40 mg total) by mouth 1 (one) time each day. 05/04/2023 5 buPROPion SR (WELLBUTRIN SR) 100 mg 12 hr tablet TAKE 1 TABLET BY MOUTH EVERY MORNING 90 tablet 03/03/2024 5 cyclobenzaprine (FLEXERIL) 10 mg tablet Take 1 tablet (10 mg total) by mouth 3 (three) times a day if needed for muscle spasms for up to 10 days. 15 tablet 01/23/2024 5 Sherpaa G7 Sensor device USE DIRECTED CHANGE SENSOR EVERY 10 DAYS 3 each 03/09/2024 5 furosemide (LASIX) 20 mg tablet Take 1 tablet (20 mg total) by mouth 1 (one) time each day. 30 each 11 01/19/2024 5 insulin aspart (NovoLOG FlexPen) 100 unit/mL (3 mL) injection penIndications:T ype 2 diabetes mellitus without complication, with long-term current use of insulin ([facility]) INJECT UNDER THE SKIN PER SLIDING SCALE BEFORE BREAKFAST AND DINNER UP TO 30 UNITS MAX DOSE PER MEAL 30 mL 5 02/10/2024 5 lurasidone (LATUDA) 120 mg tablet TAKE 1 TABLET BY MOUTH DAILY 30 tablet 2 01/19/2024 5 traZODone (DESYREL) 100 mg tablet Take 2 tablets (200 mg total) by mouth at bedtime. 01/11/2024 5 vortioxetine (TRINTELLIX) 20 mg tablet Take 1 tablet (20 mg total) by mouth 1 (one) time each day. 30 tablet 02/04/2024 5 documented as of this encounter Ordered Prescriptions Prescription Sig Dispense Quantity Refills Last Filled Start Date End Date glucose 4 gram chewable tablet Chew 4 tablets (16 g total) if needed for low blood sugar. 50 tablet 03/12/2024 6 documented in this encounter Discharge Disposition Disposition Code Departure Means Destination Comment s Home or Self Care documented in this encounter Progress Notes * DEBI Medel - 03/12/2024 4:20 AM EST ED Course as of 03/12/24 0441 Sat Mar 11, 2024 194 Endorsing left-sided abdominal pain. On exam she is quite tender with involuntary guarding. Possible diverticulitis evaluate CT abdomen. Low suspicion for obstruction, last BM was this morning and was normal. [MG] 1953 I, Dr. Kye Dupont, signed this patient out pending further workup and evaluation. History and physical reviewed with oncoming team. At this point the pending portions of the work-up are: Follow-up CT abdomen reevaluation, continue glucose monitoring and disposition [MG] Fern Mar 12, 2024 0437 Care of this patient signed out to me at change of shift. Patient here for hypoglycemia after using 10 units of regular acting insulin after checking her glucose and noted to be 130. She was hypoglycemic here to 30. She also complained of abdominal pain and is awaiting CT abdomen and pelvis after she had focal left lower quadrant tenderness on exam. Patient is repeat glucose here is 54 afterglucagon and IV dextrose. An amp of D50 was given. Patient is not on oral hypoglycemics. She deniesalcohol use. Patient was here 2 days ago for same complaint of hypoglycemia after giving herself time units of insulin with a blood glucose of 135 she also complained of abdominal pain at that time. Had a discussion with the patient, she reports she is following her sliding scale as directed. Advised that she should not be giving herself any insulin if her blood sugar is under 150 and I will provide her with a new sliding scale to go home with until she can follow-up with her PCP. Imaging reviewed. Patient complaining of upper abdominal pain now her LFTs are normal there is question of fluid b etween the liver and the gallbladder. Ultrasound gallbladder was added on and reviewed with no acute findings. Patient eating and drinking in the room. She had no recurrence of hypoglycemia. Will discharge home with temporary revised insulin sliding scale as well as glucose tablets for episodes of hypoglycemia. Patient advised to call PCP tomorrow to schedule follow-up. Given return precautions. [LM] ED Course User Index [LM] DEBI Medel [MG] Yvon Dupont MD Clinical Impressions as of 03/12/24 0441 Hypoglycemia Acute abdominal pain Discharge 1. Hypoglycemia 2. Acute abdominal pain 3. Type 2 diabetes mellitus without complication, with long-term current use of insulin ([facility]) Procedures Claudette Stapleton Cosigned by Yvon Dupont MD at 03/12/2024 6:14 PM EST Associated attestation - Yvon Dupont MD - 03/12/2024 6:14 PM EST This is a split/shared visit with DEBI Medel. I personally performed the medical decision making (MDM) for the care of this patient on 03/11/2024 as documented below 63-year-old female presented for hyperglycemia and abdominal pain. Patient required repeat glucose after taking her normal sliding scale insulin. Also noted abdominal pain, CT and RUQUS negative. Patient tolerating p.o. and discharged home on revised sliding scale until follow-up with your PCP. Yvon Dupont MD 03/12/24 6:14 PM EST * Cristian Sellers RN - 03/11/2024 11:11 PM EST Blood sugar 87. * Cristian Sellers RN - 03/11/2024 8:17 PM EST Assumed care of pt, pt lying on her stretcher A&Ox4, no signs of respiratory distress, equal chest rise & fall, VSS. Pt arrives for hypoglycemia, states she took 10 units of insulin at home for a blood sugar of 135 per sliding scale. Pt also express 9/10 abdominal pain, tender to palpation. Pt states she had an gastric bypass last May, has frequent episodes of N/V/D. Past Medical History: Diagnosis Date Anemia Bipolar 1 disorder, mixed ([facility]) 05/23/2014 DX:Bipolar 1 disorder, mixed ([facility]) Chronic pain COPD (chronic obstructive pulmonary disease) ([facility]) Diabetes mellitus ([facility]) GERD (gastroesophageal reflux disease) Headache History of adverse effect of venous thromboembolism (VTE) prophylaxis History of alcohol abuse 03/16/2006 DX:History of alcohol abuse Hypercholesteremia 03/27/2013 DX:Hypercholesteremia Hypertension Intertrigo 04/04/2018 DX:Intertrigo Moderate persistent asthma without complication 10/09/2016 DX:Moderate persistent asthma without complication Osteoarthritis DX:Osteoarthritis; COMMENT: spine, shoulder, knee Restless leg syndrome 01/09/2015 DX:Restless leg syndrome S/P laparoscopic sleeve gastrectomy 08/22/2015 DX:S/P laparoscopic sleeve gastrectomy Sleep apnea 09/22/2010 DX:Sleep apnea * Norma Suh RN - 03/11/2024 6:48 PM EST Coming fro home , Poc at home 45. Endorses abdominal pain. 1 dose of glucose en route, with improvement to 78. * Yvon Dupont MD - 03/11/2024 6:37 PM EST Emergency Medicine Note Patient Name: Claudette Stapleton Initial Evaluation: 03/11/2024 : 1960 Patient's PCP: Kat Nevarez MD Emergency Physician: Yvon Dupont MD History of Present Illness Chief Complaint: Chief Complaint Patient presents with Hypoglycemia HPI: 62-year-old female presents for hyperglycemia. Patient ate Mauritian food 2 hours ago, noted herblood sugar to be 135, took 10 units of insulin. At the time of arrival, she feels shaky and generally unwell. POC noted to be 38. ROS: I have performed a ROS with the pertinent positives and negatives documented in the history ofpresent illness. Previous History Past Medical History: Diagnosis Date Anemia Bipolar 1 disorder, mixed ([facility]) 05/23/2014 DX:Bipolar 1 disorder, mixed ([facility]) Chronic pain COPD (chronic obstructive pulmonary disease) ([facility]) Diabetes mellitus ([facility]) GERD (gastroesophageal reflux disease) Headache History of adverse effect of venous thromboembolism (VTE) prophylaxis History of alcohol abuse 03/16/2006 DX:History of alcohol abuse Hypercholesteremia 03/27/2013 DX:Hypercholesteremia Hypertension Intertrigo 04/04/2018 DX:Intertrigo Moderate persistent asthma without complication 10/09/2016 DX:Moderate persistent asthma without complication Osteoarthritis DX:Osteoarthritis; COMMENT: spine, shoulder, knee Restless leg syndrome 01/09/2015 DX:Restless leg syndrome S/P laparoscopic sleeve gastrectomy 08/22/2015 DX:S/P laparoscopic sleeve gastrectomy Sleep apnea 09/22/2010 DX:Sleep apnea Past Surgical History: Procedure Laterality Date OTHER SURGICAL HISTORY 07/15 PROCEDURE: HISTORICAL SUPRACERVICAL HYSTERECTOMY W/O BSO; COMMENT: ovarian concervation, supracervical abdominal hysterectomy, for 20 weeks size fibroid uterus TONSILLECTOMY PROCEDURE: HISTORICAL TONSILLECTOMY TOTAL KNEE ARTHROPLASTY Right 07/2019 PROCEDURE: MA ARTHRP KNE CONDYLE&PLATU MEDIAL&LAT COMPARTMENTS TUBAL LIGATION PROCEDURE: HISTORICAL TUBAL LIGATION Social History Tobacco Use Smoking status: Never Smokeless tobacco: Never Substance Use Topics Alcohol use: No Comment: Quit drinking 1 year ago, history of ETOH abuse Drug use: Not Currently Types: Cocaine Comment: History of cocaine abuse with last use occurring 20 years ago Family History Problem Relation Name Age of Onset Diabetes Mother CHF Heart failure Mother Throat cancer Father Cataract, Glaucoma Heart failure Sister Asthma Daughter is allergic to adarsh inhibitors, cephalexin, cephalexin monohydrate, glipizide, glucagon, metformin, and ropinirole. No current facility-administered medications on file prior to encounter. Current Outpatient Medications on File Prior to Encounter Medication Sig Dispense Refill Dexcom G7 Sensor device USE DIRECTED CHANGE SENSOR EVERY 10 DAYS 3 each 0 acetaminophen (TYLENOL 8 HOUR) 650 mg 8 hr tablet Take 1 tablet (650 mg total) by mouth every 8 (eight) hours if needed for headaches. for pain 30 tablet 2 albuterol HFA (PROAIR HFA ; PROVENTIL HFA ; VENTOLIN HFA) 90 mcg/actuation inhaler Inhale 2 Puffs into the lungs every 6 hours as needed for Cough, Wheezing or Shortness of Breath. amLODIPine (NORVASC) 5 mg tablet Take 1 tablet (5 mg total) by mouth 1 (one) time each day. apixaban (Eliquis) 5 mg tablet Take 1 tablet (5 mg total) by mouth 2 (two) times a day. 180 each 1 atorvastatin (LIPITOR) 40 mg tablet Take 1 tablet (40 mg total) by mouth 1 (one) time each day. budesonide-formoteroL (Symbicort) 160-4.5 mcg/actuation inhaler Inhale 2 puffs by mouth 2 (two) times a day. buPROPion SR (WELLBUTRIN SR) 100 mg 12 hr tablet TAKE 1 TABLET BY MOUTH EVERY MORNING 90 tablet 0 cholecalciferol (VITAMIN D-3) 50 mcg (2,000 unit) capsule TAKE 1 CAPSULE BY MOUTH DAILY 90 capsule 0 clonazePAM (KlonoPIN) 1 mg tablet TAKE 1 TABLET BY MOUTH THREE TIMES DAILY NEEDED FOR ANXIETY 84tablet 2 cyanocobalamin (VITAMIN B-12) 100 mcg tablet Take 0.5 tablets (50 mcg total) by mouth 1 (one) time each day. cyclobenzaprine (FLEXERIL) 10 mg tablet Take 1 tablet (10 mg total) by mouth 3 (three) times a day if needed for muscle spasms for up to 10 days. 15 tablet 0 docusate sodium (COLACE) 100 mg capsule Take 1 capsule (100 mg total) by mouth 2 (two) times a day. FREESTYLE LANCETS MISC To test sugars bid (Patient not taking: Reported on 01/11/2024) FreeStyle Kalyan 3 Sensor device Box = Kit = EACHANGE 1 DEVICE EVERY 14 DAYS 6 each 1 furosemide (LASIX) 20 mg tablet Take 1 tablet (20 mg total) by mouth 1 (one) time each day. 30 each11 furosemide (LASIX) 40 mg tablet Take 0.5 tablets (20 mg total) by mouth 1 (one) time each day. 45 each 1 gabapentin (NEURONTIN) 800 mg tablet Take 1 tablet (800 mg total) by mouth 2 (two) times a day. 180each 0 insulin aspart (NovoLOG FlexPen) 100 unit/mL (3 mL) injection pen INJECT UNDER THE SKIN PER SLIDINGSCALE BEFORE BREAKFAST AND DINNER UP TO 30 UNITS MAX DOSE PER MEAL 30 mL 5 lurasidone (LATUDA) 120 mg tablet TAKE 1 TABLET BY MOUTH DAILY 30 tablet 2 melatonin 10 mg tablet Take 1 tablet (10 mg total) by mouth at bedtime. melatonin 10 mg-lemon balm leaf extract 1 mg tablet 90 tablet 1 omeprazole (PriLOSEC) [address] capsule Take 1 capsule (20 mg total) by mouth 1 (one) time each day. oxyCODONE-acetaminophen (PERCOCET) 5-325 mg per tablet Take 1 tablet by mouth 4 (four) times a day for 28 days. Max Daily Amount: 4 tablets 112 tablet 0 pramipexole (MIRAPEX) 0.25 mg tablet TAKE 1 TABLET BY MOUTH DAILY 90 tablet 1 senna (SENOKOT) 8.6 mg tablet Take 1 tablet (8.6 mg total) by mouth 1 (one) time each day. 90 each 1 topiramate (TOPAMAX) 100 mg tablet Take 1 tablet (100 mg total) by mouth 2 (two) times a day. traZODone (DESYREL) 100 mg tablet Take 2 tablets (200 mg total) by mouth at bedtime. vortioxetine (TRINTELLIX) 20 mg tablet Take 1 tablet (20 mg total) by mouth 1 (one) time each day. 30 tablet 0 [DISCONTINUED] clonazePAM (KlonoPIN) 1 mg tablet Take 1 tablet (1 mg total) by mouth 3 (three) times a day if needed for anxiety. [DISCONTINUED] FreeStyle Kalyan 3 Sensor device CHANGE 1 DEVICE EVERY 14 DAYS [DISCONTINUED] oxyCODONE-acetaminophen (PERCOCET) 5-325 mg per tablet Take 1 tablet by mouth 4 (four) times a day for 28 days. Max Daily Amount: 4 tablets 112 tablet 0 Physical Exam ED Triage Vitals [03/11/24 1852] Temp Heart Rate Resp BP 36.5 ??C (97.7 ??F) 63 15 121/70 SpO2 Temp src Heart Rate Source Patient Position 99 % -- -- -- BP Location FiO2 (%) -- -- GENERAL: Well-Appearing SKIN: Warm, dry, normal for ethnicity. No rashes. HEENT: Normal sclera, noninjected nonicteric CHEST: Normal peripheral perfusion, no edema PULMONARY: Normal respiratory effort ABDOMINAL: Nondistended NEURO: Alert and oriented, moving all extremities equally. Tremulous. Results Labs Reviewed CBC WITH AUTO DIFFERENTIAL - Abnormal Result Value WBC 8.2 RBC 3.70 (*) Hemoglobin 11.6 Hematocrit 34.3 (*) MCV 93.2 MCH 31.5 MCHC 33.8 RDW 14.1 Platelets 152 MPV 11.9 (*) NRBC 0.0 NRBC Absolute 0.00 Neutrophils Relative 51.5 Lymphocytes Relative 37.2 Monocytes Relative 7.8 Eosinophils Relative 2.9 Basophils Relative 0.4 Immature Granulocytes Relative 0.2 Neutrophils Absolute 4.20 Lymphocytes Absolute 3.04 Monocytes Absolute 0.64 Eosinophils Absolute 0.24 Basophils Absolute 0.03 Immature Granulocytes Absolute 0.02 POCT GLUCOSE, BLOOD - Abnormal Glucose POCT 38 (*) POCT Comment MD Notified CBC AND DIFFERENTIAL Narrative: The following orders were created for panel order CBC and differential. Procedure Abnormality Status --------- ------ CBC auto differential[[id number]] Abnormal Final result Please view results for these tests on the individual orders. BASIC METABOLIC PANEL POC GLUCOSE Abnormal Labs Reviewed CBC WITH AUTO DIFFERENTIAL - Abnormal; Notable for the following components: Result Value RBC 3.70 (*) Hematocrit 34.3 (*) MPV 11.9 (*) All other components within normal limits POCT GLUCOSE, BLOOD - Abnormal; Notable for the following components: Glucose POCT 38 (*) All other components within normal limits CT Abdomen Pelvis w Contrast (Results Pending) I have discussed the incidental/abnormal imaging and/or lab abnormalities with the patient and haveinstructed them the need for further evaluation and workup with their primary care doctor. I have provided the patient with a paper copy of the abnormality. The laboratory results, imaging results and other diagnostic exam results were reviewed in the EMR. EKG Interpretation Critical Care Time None ? Medical Decision Making Differential Diagnosis: Hypoglycemia, hypokalemia, insulin overdose MDM: 63-year-old female presents for hyperglycemia. Unclear cause for the patient's hyperglycemia given she was following her normal sliding scale. Possible accidental insulin overdose. Possible hypokalemia, evaluate chemistry. Will administer D10 and reevaluate. Clinical Impression: Hypoglycemia SEPSIS Exemption: [ x ] It is unlikely this patient has sepsis at the time of my evaluation. Medications dextrose (D10W) 10 % bolus 250 mL (250 mL intravenous Given 03/11/241911) dextrose 10 % infusion - ADS Override Pull ( Override Pull 03/11/241913) ED Course as of 03/11/241953 Sat Mar 11, [id number] Endorsing left-sided abdominal pain. On exam she is quite tender with involuntary guarding. Possible diverticulitis evaluate CT abdomen. Low suspicion for obstruction, last BM was this morning and was normal. [MG] 1953 I, Dr. Kye Dupont, signed this patient out pending further workup and evaluation. History and physical reviewed with oncoming team. At this point the pending portions of the work-up are: Follow-up CT abdomen reevaluation, continue glucose monitoring and disposition [MG] ED Course User Index [MG] Yvon Dupont MD Clinical Impressions as of 03/11/241953 Hypoglycemia Procedures Procedures Diagnosis 1. Hypoglycemia Disposition Data Unavailable ED Prescriptions None Physician Attestation Yvon Dupont MD 03/11/241903 Yvon Dupont MD 03/11/241953 * DEBI Medel - 03/11/2024 6:37 PM EST HPI Chief Complaint Patient presents with Hypoglycemia HPI Knickerbocker Coma Scale Score: 15 Patient History Past Medical History: Diagnosis Date Anemia Bipolar 1 disorder, mixed (CMS/HCC) 05/23/2014 DX:Bipolar 1 disorder, mixed (HCC) Chronic pain COPD (chronic obstructive pulmonary disease) (CMS/HCC) Diabetes mellitus (CMS/HCC) GERD (gastroesophageal reflux disease) Headache History of adverse effect of venous thromboembolism (VTE) prophylaxis History of alcohol abuse 03/16/2006 DX:History of alcohol abuse Hypercholesteremia 03/27/2013 DX:Hypercholesteremia Hypertension Intertrigo 04/04/2018 DX:Intertrigo Moderate persistent asthma without complication 10/09/2016 DX:Moderate persistent asthma without complication Osteoarthritis DX:Osteoarthritis; COMMENT: spine, shoulder, knee Restless leg syndrome 01/09/2015 DX:Restless leg syndrome S/P laparoscopic sleeve gastrectomy 08/22/2015 DX:S/P laparoscopic sleeve gastrectomy Sleep apnea 09/22/2010 DX:Sleep apnea Past Surgical History: Procedure Laterality Date OTHER SURGICAL HISTORY 07/15 PROCEDURE: HISTORICAL SUPRACERVICAL HYSTERECTOMY W/O BSO; COMMENT: ovarian concervation, supracervical abdominal hysterectomy, for 20 weeks size fibroid uterus TONSILLECTOMY PROCEDURE: HISTORICAL TONSILLECTOMY TOTAL KNEE ARTHROPLASTY Right 07/2019 PROCEDURE: MA ARTHRP KNE CONDYLE&PLATU MEDIAL&LAT COMPARTMENTS TUBAL LIGATION PROCEDURE: HISTORICAL TUBAL LIGATION Family History Problem Relation Name Age of Onset Diabetes Mother CHF Heart failure Mother Throat cancer Father Cataract, Glaucoma Heart failure Sister Asthma Daughter Social History Tobacco Use Smoking status: Never Smokeless tobacco: Never Substance Use Topics Alcohol use: No Comment: Quit drinking 1 year ago, history of ETOH abuse Drug use: Not Currently Types: Cocaine Comment: History of cocaine abuse with last use occurring 20 years ago Review of Systems Review of Systems Physical Exam ED Triage Vitals Temp Heart Rate Resp BP 03/11/24 1852 03/11/24 1852 03/11/24 1852 03/11/24 185 36.5 ??C (97.7 ??F) 63 15 121/70 SpO2 Temp Source Heart Rate Source Patient Position 03/11/24 1852 03/12/24 0123 03/12/24 0123 03/11/242012 99 % Oral Monitor Lying BP Location FiO2 (%) 03/11/242012 -- Left arm Physical Exam ED Course & MDM ED Course as of 03/28/242018 Sat Mar 11, [id number] Endorsing left-sided abdominal pain. On exam she is quite tender with involuntary guarding. Possible diverticulitis evaluate CT abdomen. Low suspicion for obstruction, last BM was this morning and was normal. [MG] 1953 I, Dr. Kye Dupont, signed this patient out pending further workup and evaluation. History and physical reviewed with oncoming team. At this point the pending portions of the work-up are: Follow-up CT abdomen reevaluation, continue glucose monitoring and disposition [MG] Fern Mar 12, 2024 3751 Care of this patient signed out to me at change of shift. Patient here for hypoglycemia after using 10 units of regular acting insulin after checking her glucose and noted to be 130. She was hypoglycemic here to 30. She also complained of abdominal pain and is awaiting CT abdomen and pelvis after she had focal left lower quadrant tenderness on exam. Patient is repeat glucose here is 54 afterglucagon and IV dextrose. An amp of D50 was given. Patient is not on oral hypoglycemics. She deniesalcohol use. Patient was here 2 days ago for same complaint of hypoglycemia after giving herself time units of insulin with a blood glucose of 135 she also complained of abdominal pain at that time. Had a discussion with the patient, she reports she is following her sliding scale as directed. Advised that she should not be giving herself any insulin if her blood sugar is under 150 and I will provide her with a new sliding scale to go home with until she can follow-up with her PCP. Imaging reviewed. Patient complaining of upper abdominal pain now her LFTs are normal there is question of fluid b etween the liver and the gallbladder. Ultrasound gallbladder was added on and reviewed with no acute findings. Patient eating and drinking in the room. She had no recurrence of hypoglycemia. Will discharge home with temporary revised insulin sliding scale as well as glucose tablets for episodes of hypoglycemia. Patient advised to call PCP tomorrow to schedule follow-up. Given return precautions. [LM] ED Course User Index [LM] DEBI Medel [MG] Yvon Dupont MD Clinical Impressions as of 03/28/242018 Hypoglycemia Acute abdominal pain Medical Decision Making Procedures DEBI Medel 03/12/24 0225 DEBI Medel 03/28/242018 Cosigned by Yvon Dupont MD at 03/29/2024 8:27 AM EST Associated attestation - Yvon Dupont MD - 03/29/2024 8:27 AM EST This is a split/shared visit with DEBI Medel. I personally performed the medical decision making (MDM) for the care of this patient on 03/11/2024 as documented below Presents for left sided AP. Signed out pending CT AP. Also hypoglycemic, improved after dextrose. Imaging negative and pt tolerating PO, dc on revised ISS. Yvon Dupont MD 03/29/24 8:25 AM EST documented in this encounter Plan of Treatment Upcoming Encounters Date Type Department Care Team (Late st Contact Info) Description 05/04/2024 11:00 AM EDT Procedure visit Orthopedic Surgery - [place] [address] [facility] [address] [place] [id number] Haley Lara MD [address] [facility] [address] [place] [address] 06/13/2024 10:15 AM EDT Office Visit Adult [facility] [address] [place] [phone] Meenakshi Garcia PA [address] [place] [address] documented as of this encounter Procedures Procedure Name Priority Date/Time Associated Diagnosis Comments POC GLUCOSE STAT 03/12/2024 2:32 AM EST POCT GLUCOSE BLOOD Routine 03/12/2024 2: 30 AM EST US ABDOMEN LIMITED STAT 03/12/2024 12 :35 AM EST POCT GLUCOSE BLOOD Routine 03/11/2024 11 :[address] ABDOMEN PELVIS W CONTRAST STAT 03/11/2024 10:10 PM EST POC GLUCOSE STAT 03/11/2024 10:00 PM EST POCT GLUCOSE BLOOD Routine 03/11/2024 9: 59 PM EST POCT GLUCOSE BLOOD Routine 03/11/2024 8: 29 PM EST VITAMIN B12 AND FOLATE Add-On 03/11/2024 7:14 PM EST CBC WITH AUTO DIFFERENTIAL STAT 03/11/2024 7:14 PM EST CBC AND DIFFERENTIAL STAT 03/11/2024 7:14 PM EST MAGNESIUM Add-On 03/11/2024 7:14 PM EST ETHANOL Add-On 03/11/2024 7:14 PM EST HEPATIC FUNCTION PANEL STAT Add-on 03/11/2024 7:14 PM EST BASIC METABOLIC PANEL STAT 03/11/2024 7:14 PM EST POCT GLUCOSE BLOOD Routine 03/11/2024 6: 58 PM EST documented in this encounter Results * POCT glucose manually resulted (03/12/2024 2:32 AM EST) Glucose POC 82 70 - 110 mg/dL Blood Capillary blood specimen / Unknown 03/12/2024 2:32 AM EST us Lizzie CARRERA POINT OF CARE TEST ENTER/EDIT ORDERABLES Final Result * POCT Glucose, blood (03/12/2024 2:30 AM EST) Glucose POCT 82 70 - 100 mg/dL 03/12/2024 2:31 AM EST [facility] Blood Capillary blood specimen / Unknown 03/12/2024 2:30 AM EST 03/12/2024 2:32 AM EST us Yvon Dupont MD LAB POINT OF CARE TE ST DOCKED DEVICE UNSOLICITED RESULTS Final Result [facility] [address] [place] [address], [place] [phone] * US Abdomen Limited (03/12/2024 12:35 AM EST) Anatomical Region Laterality Modality Body Ultrasound 03/12/2024 1:55 AM EST Impressions 03/12/2024 1:55 AM EST 1. Distended gallbladder containing sludge. No gallstone. No sonographic evidence of acute cholecystitis. 2. Borderline caliber common bile duct for the patient's age, measuring 6-7 mm in caliber. Correlation with liver function tests is advised. This document has been electronically signed by: Kvng Rodriguez M.D. on 03/12/2024 01:55:03 Narrative 03/12/2024 1:55 AM EST ULTRASOUND ABDOMEN LIMITED COMPARISON: CT abdomen/pelvis 03/11/2024. FINDINGS: Pancreas is not well visualized due to overlying bowel gas. Liver is coarsened in echogenicity. Liver is not enlarged when correlated with the CT abdomen/pelvis study. Common bile duct is borderline for the patient's age, measuring 6-7 mm in caliber on image 54. Gallbladder is distended and contains sludge. No gallstone. No definite gallbladder wall thickening by my measurements. No pericholecystic fluid. Right kidney is grossly unremarkable without hydronephrosis. Procedure Note Kvng Rodriguez MD - 03/12/2024 ULTRASOUND ABDOMEN LIMITED COMPARISON: CT abdomen/pelvis 03/11/2024. FINDINGS: Pancreas is not well visualized due to overlying bowel gas. Liver is coarsened in echogenicity. Liver is not enlarged whencorrelated with the CT abdomen/pelvis study. Common bile duct is borderline for the patient's age, measuring 6-7 mm in caliber on image 54. Gallbladder is distended and contains sludge. No gallstone. No definite gallbladderwall thickening by my measurements. No pericholecystic fluid. Right kidney is grossly unremarkable without hydronephrosis. IMPRESSION: 1. Distended gallbladder containing sludge. No gallstone. No sonographic evidence of acute cholecystitis. 2. Borderline caliber common bile duct for the patient's age, measuring 6-7 mm in caliber. Correlation with liver function tests is advised. This document has been electronically signed by: Kvng Rodriguez M.D. on 03/12/2024 01:55:03 us Lizzie CARRERA IMG US PROCEDURES Final Resul t * POCT Glucose, blood (03/11/2024 11:10 PM EST) Glucose POCT 87 70 - 100 mg/dL 03/11/2024 11:10 PM EST [facility] Blood Capillary blood specimen / Unknown 03/11/2024 11:10 PM EST 03/11/2024 11:11 PM EST Yvon Dupont MD LAB POINT OF CARE TE ST DOCKED DEVICE UNSOLICITED RESULTS Final Result [facility] [address] [place] [address], [place] [phone] * CT Abdomen Pelvis w Contrast (03/11/2024 10:10 PM EST) Anatomical Region Laterality Modality Body Computed Tomogra phy 03/11/2024 11:1 8 PM EST Impressions 03/11/2024 11:18 PM EST 1. Distended gallbladder. No visible gallstone. Please note that CT has limited sensitivity for the detection of gallstones. A tiny amount of fluid is questioned in between the liver and gallbladder. Right upper quadrant ultrasound in the ER is advised for further assessment. 2. What is thought to represent a subcentimeter nonenlarged lymph node is noted abutting the gallbladder, this can be followed up on an outpatient basis to confirm stability. 3. No evidence of a bowel obstruction or free air. No pericolonic inflammation. No evidence of appendicitis. 4. Punctate 1-2 mm right renal stone without hydronephrosis. No calculi in the ureters and urinary bladder. 5. Additional findings are detailed above. This document has been electronically signed by: Kvng Rodriguez M.D. on 03/11/2024 23:18:19 Narrative 03/11/2024 11:[address] ABDOMEN AND PELVIS WITH CONTRAST COMPARISON: None. FINDINGS: Images of the lung bases demonstrate no acute infiltrate or consolidation. Postsurgical changes are noted involving stomach and small bowel. Distal esophagus is mildly thick-walled which might be due at least in part to underdistention. Esophagitis is difficult to exclude. No focal liver lesion. Focal fatty infiltration is noted adjacent to the falciform ligament of the liver. Distended gallbladder is noted. No visible gallstone, although please note that CT has limited sensitivity for the detection of gallstones. Tiny amount of fluid is questioned in between the liver and gallbladder on coronal image 26. A right upper quadrant ultrasound in the ER is advised for further assessment. Ovoid subcentimeter density is noted abutting the gallbladder on axial image 54 and coronal image 35, and is suspected to represent an adjacent nonenlarged lymph node. No CT evidence of acute pancreatitis. Spleen and adrenal glands are unremarkable. Punctate 1-2 mm right renal stone is noted on axial image 63. Both kidneys are otherwise unremarkable. No hydronephrosis or obstructing stone. Multiple calcified phleboliths are noted in the pelvis. Urinary bladder is unremarkable. The patient is status post hysterectomy. Abdominal aorta is normal in caliber without evidence of an aneurysm or dissection. No evidence of a small-bowel obstruction or free air. No pericolonic inflammation. No evidence of diverticulitis. Appendix is visualized and there is no definite evidence of acute appendicitis. No lymphadenopathy or loculated fluid collection. No evidence of a bowel containing hernia. Pedicle screws, interbody fixation rods, and disc spacer material are noted transfixing the L3-L4 vertebral body levels. Degenerative changes are noted within the lumbar spine and thoracic spine. Bvzd-ki-[id number] degenerative changes are noted in the hip joints. Procedure Note Kvng Rodriguez MD - 03/11/2024 CT ABDOMEN AND PELVIS WITH CONTRAST COMPARISON: None. FINDINGS: Images of the lung bases demonstrate no acute infiltrate or consolidation. Postsurgical changes are noted involving stomach andsmall bowel. Distal esophagus is mildly thick-walled which might be due atleast in part to underdistention. Esophagitis is difficult to exclude. No focal liver lesion. Focal fatty infiltration is noted adjacent to the falciform ligament of the liver. Distended gallbladder is noted. No visible gallstone, although please note that CT has limited sensitivity for the detection of gallstones. Tiny amount of fluid is questioned in between the liver and gallbladder on coronal image 26. A right upper quadrant ultrasound in the ER is advised for further assessment. Ovoid subcentimeter density is noted abutting the gallbladder on axial image54 and coronal image 35, and is suspected to represent an adjacent nonenlarged lymph node. No CT evidence of acute pancreatitis. Spleen and adrenal glands are unremarkable. Punctate 1-2 mm right renal stone is noted on axial image 63. Both kidneys are otherwise unremarkable. No hydronephrosis or obstructing stone. Multiple calcified phleboliths are noted in the pelvis. Urinary bladder is unremarkable. The patient is status post hysterectomy. Abdominal aorta is normal in caliber without evidence of an aneurysm or dissection. No evidence of a small-bowel obstruction or free air. No pericolonic inflammation. No evidence of diverticulitis. Appendix is visualized and there is no definite evidence of acute appendicitis. No lymphadenopathy or loculated fluid collection. No evidence of a bowel containing hernia. Pedicle screws, interbody fixation rods, and disc spacer material are noted transfixing the L3-L4 vertebral body levels. Degenerative changes are noted within the lumbar spine and thoracicspine. Bpjr-hm-[id number] degenerative changes are noted in the hip joints. IMPRESSION: 1. Distended gallbladder. No visible gallstone. Please note that CT has limited sensitivity for the detection of gallstones. A tiny amount of fluid is questioned in between the liver and gallbladder. Right upper quadrant ultrasound in the ER is advised for further assessment. 2. What is thought to represent a subcentimeter nonenlarged lymph nodeis noted abutting the gallbladder, this can be followed up on an outpatient basis to confirm stability. 3. No evidence of a bowel obstruction or free air. No pericolonic inflammation. No evidence of appendicitis. 4. Punctate 1-2 mm right renal stone without hydronephrosis. No calculiin the ureters and urinary bladder. 5. Additional findings are detailed above. This document has been electronically signed by: Kvng Rodriguez M.D. on 03/11/2024 23:18:19 us Yvon Dupont MD IMG CT PROCEDURES Final Result * POC glucose manually resulted (03/11/2024 10:00 PM EST) Glucose POC 99 70 - 110 mg/dL Blood Capillary blood specimen / Unknown 03/11/2024 10:00 PM EST us Yvon Dupont MD POINT OF CARE TEST ENTER/EDIT O RDERABLES Final Result * POCT Glucose, blood (03/11/2024 9:59 PM EST) Glucose POCT 99 70 - 100 mg/dL 03/11/2024 10:00 PM EST [facility] Blood Capillary blood specimen / Unknown 03/11/2024 9:59 PM EST 03/11/2024 10:01 PM EST us Yvon Dupont MD LAB POINT OF CARE TE ST DOCKED DEVICE UNSOLICITED RESULTS Final Result Performing Organization Address [facility]/ZIP Co de Phone Number [facility] [address] [place] [address], [place] [phone] * (ABNORMAL) POCT Glucose, blood (03/11/2024 8:29 PM EST) Glucose POCT 57(L) 70 - 100 mg/dL 03/11/2024 8:30 PM EST [facility] Blood Capillary blood specimen / Unknown 03/11/2024 8:29 PM EST 03/11/2024 8:31 PM EST us Yvon Dupont MD LAB POINT OF CARE TE ST DOCKED DEVICE UNSOLICITED RESULTS Final Result [facility] [address] [place] [address], [place] [phone] * (ABNORMAL) Hepatic function panel (03/11/2024 7:14 PM EST) Total Protein 5.2(L) 6.0 - 8.0 g/dL LAB CHEMISTRY METHOD 03/11/2024 10:18 PM EST [facility] Albumin 3.0(L) 3.2 - 5.0 g/dL LAB CHEMISTRY METHOD 03/11/2024 10:18 PM EST [facility] Total Bilirubin 0.2 0.0 - 1.4 mg/dL LAB CHEMISTRY METHOD 03/11/2024 10:18 PM [facility] Bilirubin, Direct <0.1 0.0 - 0.3 mg/dL LAB CHEMISTRY METHOD 03/11/2024 10:18 PM [facility] Bilirubin, Indirect LAB CHEMISTRY METHOD 03/11/2024 10:18 PM [facility] Comment:Unable to calculate Indirect Bilirubin. ALT (SGPT) 18 10 - 60 unit/L LAB CHEMISTRY METHOD 03/11/2024 10:18 PM [facility] AST (SGOT) 11 10 - 42 unit/L LAB CHEMISTRY METHOD 03/11/2024 10:18 PM [facility] Alkaline Phosphatase 50 42 - 121 unit/L LAB CHEMISTRY METHOD 03/11/2024 10:18 PM [facility] Blood Venous blood specimen / Unknown Venipuncture / Unknown 03/11/2024 7:14 PM EST 03/11/2024 7:19 PM EST us Lizzie CARRERA LAB BLOOD ORDERABLES Final Re sult [facility] [address] [place] [address], * (ABNORMAL) Magnesium (03/11/2024 7:14 PM EST) Magnesium 1.5(L) 1.9 - 2.6 mg/dL LAB CHEMISTRY METHOD 03/11/2024 9:48 PM [facility] Blood Venous blood specimen / Unknown Venipuncture / Unknown 03/11/2024 7:14 PM EST 03/11/2024 7:19 PM EST Lizzie CARRERA LAB BLOOD ORDERABLES Final Re sult [facility] [address] [place] [address], [place] [phone] * (ABNORMAL) Vitamin B12 and folate (03/11/2024 7:14 PM EST) [facility] Vitamin B-12 391 250 - 900 pcg/mL LAB CHEMISTRY METHOD 03/11/2024 10:18 PM EST [facility] Folate >20.0(H) 2.8 - 17.0 ng/ml LAB CHEMISTRY METHOD 03/11/2024 10:18 PM EST [facility] Blood Venous blood specimen / Unknown Venipuncture / Unknown 03/11/2024 7:14 PM EST 03/11/2024 7:19 PM EST Lizzie CARRERA LAB BLOOD ORDERABLES Final Re sult [facility] [address] [place] [address], [place] [phone] * Ethanol (03/11/2024 7:14 PM EST) [facility] Ethanol Level <3 0 - 10 mg/dL LAB CHEMISTRY METHOD 03/11/2024 9:58 PM EST [facility] Blood Venous blood specimen / Unknown Venipuncture / Unknown 03/11/2024 7:14 PM EST 03/11/2024 7:19 PM EST Lizzie CARRERA LAB BLOOD ORDERABLES Final Re sult [facility] [address] [place] [address], [place] [phone] * (ABNORMAL) CBC auto differential (03/11/2024 7:14 PM EST) [facility] WBC 8.2 4.8 - 10.8 K/[facility] HEMETOLOGY METHOD 03/11/2024 7:30 PM [facility] RBC 3.70(L) 3.80 - 4.80 M/mcL LAB HEMETOLOGY METHOD 03/11/2024 7:30 PM [facility] Hemoglobin 11.6 11.5 - 16.0 g/dL LAB HEMETOLOGY METHOD 03/11/2024 7:30 PM [facility] Hematocrit 34.3(L) 35.0 - 47.0 % LAB HEMETOLOGY METHOD 03/11/2024 7:30 PM [facility] MCV 93.2 79.0 - 98.0 FL LAB HEMETOLOGY METHOD 03/11/2024 7:30 PM [facility] MCH 31.5 27.0 - 32.0 pcg LAB HEMETOLOGY METHOD 03/11/2024 7:30 PM [facility] MCHC 33.8 32.0 - 37.0 g/dL LAB HEMETOLOGY METHOD 03/11/2024 7:30 PM [facility] RDW 14.1 11.0 - 15.0 % LAB HEMETOLOGY METHOD 03/11/2024 7:30 PM [facility] Platelets 152 130 - 400 K/[facility] LAB HEMETOLOGY METHOD 03/11/2024 7:30 PM [facility] MPV 11.9(H) 7.0 - 11.0 FL LAB HEMETOLOGY METHOD 03/11/2024 7:30 PM [facility] NRBC 0.0 <1.0 % LAB HEMETOLOGY METHOD 03/11/2024 7:30 PM [facility] NRBC Absolute 0.00 <0.10 K/[facility] LAB HEMETOLOGY METHOD 03/11/2024 7:30 PM [facility] Neutrophils Relative 51.5 % LAB HEMETOLOGY METHOD 03/11/2024 7:30 PM [facility] Lymphocytes Relative 37.2 % LAB HEMETOLOGY METHOD 03/11/2024 7:30 PM [facility] Monocytes Relative 7.8 % LAB HEMETOLOGY METHOD 03/11/2024 7:30 PM [facility] Eosinophils Relative 2.9 % LAB HEMETOLOGY METHOD 03/11/2024 7:30 PM [facility] Basophils Relative 0.4 % LAB HEMETOLOGY METHOD 03/11/2024 7:30 PM [facility] Immature Granulocytes Relative 0.2 % LAB HEMETOLOGY METHOD 03/11/2024 7:30 PM [facility] Neutrophils Absolute 4.20 1.50 - 7.00 K/mcL LAB HEMETOLOGY METHOD 03/11/2024 7:30 PM [facility] Lymphocytes Absolute 3.04 1.00 - 5.00 K/mcL LAB HEMETOLOGY METHOD 03/11/2024 7:30 PM [facility] Monocytes Absolute 0.64 0.20 - 1.00 K/mcL LAB HEMETOLOGY METHOD 03/11/2024 7:30 PM [facility] Eosinophils Absolute 0.24 0.00 - 0.50 K/mcL LAB HEMETOLOGY METHOD 03/11/2024 7:30 PM [facility] Basophils Absolute 0.03 0.00 - 0.20 K/mcL LAB HEMETOLOGY METHOD 03/11/2024 7:30 PM [facility] Immature Granulocytes Absolute 0.02 0.00 - 0.03 K/mcL LAB HEMETOLOGY METHOD 03/11/2024 7:30 PM [facility] Blood Venous blood specimen / Unknown Venipuncture / Unknown 03/11/2024 7:14 PM EST 03/11/2024 7:19 PM EST us Yvon Dupont MD LAB BLOOD ORDERABLES Final Resu lt [facility] [address] [place] [address], * (ABNORMAL) Basic metabolic panel (03/11/2024 7:14 PM EST) Sodium 143 133 - 145 mmol/L LAB CHEMISTRY METHOD 03/11/2024 7:58 PM [facility] Potassium 3.5 3.5 - 5.5 mmol/L LAB CHEMISTRY METHOD 03/11/2024 7:58 PM [facility] Chloride 115(H) 96 - 110 mmol/L LAB CHEMISTRY METHOD 03/11/2024 7:58 PM [facility] CO2 24 21 - 32 mmol/L LAB CHEMISTRY METHOD 03/11/2024 7:58 PM [facility] Anion Gap 4 3 - 11 LAB CHEMISTRY METHOD 03/11/2024 7:58 PM [facility] Glucose 49(L) 70 - 100 mg/dL LAB CHEMISTRY METHOD 03/11/2024 7:58 PM [facility] BUN 7 5 - 25 mg/dL LAB CHEMISTRY METHOD 03/11/2024 7:58 PM [facility] Creatinine 0.78 0.50 - 1.10 mg/dL LAB CHEMISTRY METHOD 03/11/2024 7:58 PM [facility] eGFR 85 >=60 mL/min/1. 73m2 LAB CHEMISTRY METHOD 03/11/2024 7:58 PM [facility] Comment:Calculation based on the??Chronic Kidney Disease Epidemiology Collaboration (CKD-EPI) equation refit??without adjustment for race. BUN/Creatinine Ratio 9.0 LAB CHEMISTRY METHOD 03/11/2024 7:58 PM [facility] Calcium 8.3(L) 8.5 - 10.5 mg/dL LAB CHEMISTRY METHOD 03/11/2024 7:58 PM EST [facility] Blood Venous blood specimen / Unknown Venipuncture / Unknown 03/11/2024 7:14 PM EST 03/11/2024 7:19 PM EST us Yvon Dupont MD LAB BLOOD ORDERABLES Final Resu lt Performing Organization Address [facility]/ZIP Co de Phone Number [facility] [address] [place] [address], [place] [phone] * (ABNORMAL) POCT Glucose, blood (03/11/2024 6:58 PM EST) [facility] Glucose POCT 38(LL) 70 - 100 mg/dL 03/11/2024 6:59 PM EST [facility] POCT Comment MD Notified 03/11/2024 6:59 PM EST [facility] Blood Capillary blood specimen / Unknown 03/11/2024 6:58 PM EST 03/11/2024 7:00 PM EST us Yvon Dupont MD LAB POINT OF CARE TE ST DOCKED DEVICE UNSOLICITED RESULTS Final Result Performing Organization Address [facility] de Phone Number [facility] [address] [place] [address], [place] [phone] documented in this encounter Visit Diagnoses Diagnosis Hypoglycemia- Primary Hypoglycemia, unspecified Acute abdominal pain Abdominal pain, unspecified site Type 2 diabetes mellitus without complication, with long-term current use of insulin ([facility]) documented in this encounter Administered Medications Inactive Administered Medications - up to 3 most recent administrations Medication Order MAR Action Action Date Dose Rate Site acetaminophen (TYLENOL) tablet 1,000 mg 1,000 mg, oral, Once, On 03/11/24 at 2305, For 1 dose Given 03/12/2024 12:07 AM EST 1,000 mg dextrose (D10W) 10 % bolus 250 mL 250 mL, intravenous, Once, On 2/1/25 at 1902, For 1 dose Given 03/11/2024 7:12 PM EST 250 mL dextrose (D50W) 50% injection 25 g 25 g, intravenous, Once, On 03/11/24 at 2039, For 1 dose Given 03/11/2024 8:47 PM EST 25 g iopamidoL (ISOVUE-370) 370 mg iodine /mL (76 %) injection 90 mL 90 mL, intravenous, Once in imaging, Starting on 03/11/24 at 2206, For 1 dose Given 03/11/2024 10:07 PM EST 90 mL ketorolac (TORADOL) injection 15 mg 15 mg, intravenous, Once, On 03/11/24 at 2121, For 1 dose Given 03/11/2024 9:37 PM EST 15 mg magnesium sulfate 2 gram/50 mL (4 %) IVPB 2 g 2 g, intravenous, at 25 mL/hr, Administer over 2 Hours, Once, On 03/11/24 at 2202, For 1 dose New Bag 03/11/2024 10:30 PM EST 2 g 25 mL/hr oxyCODONE (ROXICODONE) immediate release tablet 10 mg 10 mg, oral, Once, On 03/11/24 at 2354, For 1 dose Given 03/12/2024 12:06 AM EST 10 mg sodium chloride 0.9 % flush 10 mL 10 mL, intravenous, Once, On 03/11/24 at 2207, For 1 dose Given 03/11/2024 10:07 PM EST 10 mL documented in this encounter Active and Recently Administered Medications Times are shown in EST. Scheduled Medication Order 03/10/2024 03/11/2024 03/12/2024 acetaminophen (TYLENOL) tablet 1,000 mg (COMPLETED) 1,000 mg, oral, Once, On 03/11/24 at 2305, For 1 dose 0007 (Given - Provid er: Cristian Sellers RN - Comment: Waited to give together with other pain medication) dextrose (D10W) 10 % bolus 250 mL (COMPLETED) 250 mL, intravenous, Once, On 03/11/24 at 1902, For 1 dose 191 (Given - Provider: Norma Suh RN) dextrose (D50W) 50% injection 25 g (COMPLETED) 25 g, intravenous, Once, On 03/11/24 at 2038, For 1 dose 2046 (Given - Provider: Tasha Baum RN) iopamidoL (ISOVUE-370) 370 mg iodine /mL (76 %) injection 90 mL (COMPLETED) 90 mL, intravenous, Once in imaging, Starting on 03/11/24 at 2205, For 1 dose 2206 (Given - Provider: Desiree Rae) ketorolac (TORADOL) injection 15 mg (COMPLETED) 15 mg, intravenous, Once, On 03/11/24 at 2120, For 1 dose 2136 (Given - Provider: Cristian Sellers RN) magnesium sulfate 2 gram/50 mL (4 %) IVPB 2 g (COMPLETED) 2 g, intravenous, at 25 mL/hr, Administer over 2 Hours, Once, On 03/11/24 at 2201, For 1 dose 2229 (New Bag - Provider: Cristian Sellers RN) 0023 (Stopped - Provider: Cristian Sellers RN) oxyCODONE (ROXICODONE) immediate release tablet 10 mg (COMPLETED) 10 mg, oral, Once, On 03/11/24 at 2354, For 1 dose 0006 (Given - Provid er: Cristian Sellers RN) sodium chloride 0.9 % flush 10 mL (COMPLETED) 10 mL, intravenous, Once, On 03/11/24 at 2206, For 1 dose 2206 (Given - Provider: Desiree Rae) documented in this encounter Orders Medications Ordered That Sang ht Not Have Been Administered Count Last Ordered Date First Ordered Date dextrose 10 % infusion - ADS Override Pull 1 03/11/2024 documented in this encounter Care Teams Eyewear Manufacturing Tech Relationship Specialty Start Date End Date Kat Nevarez MD [address] [place] [id number] PCP - General Internal Medicine 01/18/10 documented as of this encounter
--- OUTSIDE RECORDS SUMMARY | 2024-04-07 13:21 | XMS_ITS | Encounter Summary ---
Author Organization [facility] Address [address] [place] [address] Care Team Providers Care Coating Supervisor Name Role Phone Kat Nevarez MD Primary Care Prov ider Encounter Details Date Type Department Care Team (Latest Contact Info) Description 03/08/2024 Billing Patient Not Present Adult Medicine - [place] [address] [place] [phone] Kat Wang MD [address] [place] [address] Perforation of intestine (nontraumatic) (CMS/[facility]) (Primary Dx); Type 2 diabetes mellitus with diabetic polyneuropathy, unspecified whether long wall shear operator insulin use (CMS/[facility]); Essential (primary) hypertension; Uncomplicated asthma, unspecified asthma severity, unspecified whether persistent; Bipolar affective disorder, remission status unspecified (CMS/[facility]); Pure hypercholesterolemia Social History Tobacco Use Types Packs/Day Years [...] care for your loved ones. For example, director of early childhood or elderly care for an older adult? [...] PM EST documented as of this encounter Functional Status * Are you deaf or do you have serious difficulty hearing? Answer Date of Assessment Author No 01/23/2024 1:04 AM Desiree Gomez RN * Are you blind or do [...] 01/23/2024 1:04 AM Desiree Gomez RN * Because of a physical, mental, [...] Desiree Gomez RN documented in this encounter Progress Notes * Angela Felix MA - 03/08/2024 2:33 PM EST Start of Care Date: 07/26/2023 Date of certification period: 01/22/2024-03/21/2024 Date of service = signature date 03/07/2024 Hospice patient: no Home Care Agency: [facility] Recertification Code [id number] Initial Code G0180 documented in this encounter Plan of Treatment Upcoming Encounters Date Type Department Care Team (Late st Contact Info) Description 05/04/2024 11:00 AM EDT Procedure visit Orthopedic Surgery - [place] [address] [phone] Haley Lara MD [address] [address] 06/13/2024 10:15 AM EDT Office Visit Adult Medicine [address] [phone] Meenakshi Garcia PA [address] [place], [place] documented as of this encounter Visit Diagnoses Diagnosis Perforation of intestine (nontraumatic) ([facility])- Primary Type 2 diabetes mellitus with diabetic polyneuropathy, unspecified whether long wall shear operator insulin use ([facility]) Essential (primary) hypertension Unspecified essential hypertension Uncomplicated asthma, unspecified asthma severity, unspecified whether persistent Bipolar affective disorder, remission status unspecified ([facility]) Pure hypercholesterolemia documented in this encounter Care Teams Coating Supervisor Relationship Specialty Start Date End Date Kat Nevarez MD [address] [place], [place] PCP - General Internal Medicine 01/18/10 documented as of this encounter
--- OUTSIDE RECORDS SUMMARY | 2024-04-07 13:21 | XMS_ITS | Encounter Summary ---
Author Organization [facility] Address [address] [place] [address] Care Team Providers Care Branch Banker Name Role Phone Kat Nevarez MD Primary Care Prov ider Reason for Visit * Reason Comments Diabetes Post Hospital/ER Discharge Encounter Details Date Type Department Care Team (Latest Contact Info) Description 03/14/2024 11:15 AM EST Office Visit Adult Medicine - [address] [phone] Kat Nevarez MD [address] [place] [id number] Type 2 diabetes mellitus with other specified complication, with long-term current use of insulin (CMS/HCC) (Primary Dx); Chronic bilateral low back pain with bilateral sciatica; Osteoarthritis, unspecified osteoarthritis type, unspecified site; Bipolar 1 disorder, mixed (CMS/HCC) Social History Tobacco Use Types Packs/Day Years Used Date Smoking Tobacco: Never Smokeless Tobacco: Never Tobacco Cessation:Counseling Given: Not Answered Alcohol Use Standard Drinks/Week Comments No 0 [...] for your loved ones. For example, director child development center or elderly care for an older adult? [...] Sign Reading Time Taken Comments Blood Pressure 93/64 03/14/2024 11:35 AM EST Pulse 71 03/14/2024 11:35 AM EST Temperature 36.5 ??C (97.7 ??F) 03/14/2024 11:[address] Respiratory Rate - - Oxygen Saturation - - Inhaled Oxygen Concentration - - Weight 70 kg (154 lb 6.4 oz) 03/14/2024 11:35 AM EST Height - - Body Mass Index 25.69 03/12/2024 1:23 AM EST documented in this [...] Desiree Gomez RN documented in this encounter Ordered Prescriptions Prescription Sig Dispense Quantity Refills Last Filled Start Date End Date lurasidone (LATUDA) 120 mg tablet Take 1 tablet (120 mg total) by mouth 1 (one) time each day. 90 each 1 03/14/2024 09/10/2024 cyclobenzaprine (FLEXERIL) 10 mg tablet Take 1 tablet (10 mg total) by mouth 3 (three) times a day if needed for muscle spasms. 15 tablet 1 03/14/2024 06/12/2024 atorvastatin (LIPITOR) 40 mg tablet Take 1 tablet (40 mg total) by mouth 1 (one) time each day. 90 each 1 03/14/2024 09/10/2024 amLODIPine (NORVASC) 5 mg tablet Take 1 tablet (5 mg total) by mouth 1 (one) time each day. 90 each 1 03/14/2024 09/10/2024 documented in this encounter Progress Notes * Kat Nevarez MD - 03/14/2024 11:15 AM EST CHIEF COMPLAINT: Diabetes and Post Hospital/ER Discharge IDENTIFIER: Claudette Stapleton is a 63 y.o. old female. HPI: 61-year-old lady presents for her routine follow-up. She presents with her .. Patient with multiple medical problems and psychiatric problems. Since last seen she was seen in the emergency room for hypoglycemia We reconciled her medications Today she does not have any acute issues. She says that when her sugars were low she was asymptomatic ROS: See HPI PAST MEDICAL HISTORY: Patient Active Problem List Diagnosis Date Noted Alcohol abuse 01/11/2024 Diabetes mellitus, type 2 ([facility]) 01/11/2024 Mood disorder ([facility]) 01/11/2024 RYAN (obstructive sleep apnea) 01/11/2024 Bradycardia 12/27/2023 Class 2 obesity due to excess calories without serious comorbidity with body mass index (BMI) of 35.0 to 35.9 in adult 11/18/2023 Peripheral autonomic neuropathy due to DM ([facility]) 10/06/2022 Single subsegmental pulmonary embolism without acute cor pulmonale ([facility]) 08/10/2022 Chronic bilateral low back pain with bilateral sciatica 07/21/2022 Pain of left hip 07/21/2022 Constipation 04/14/2021 Medial meniscus tear 02/02/2019 HTN (hypertension) 01/13/2019 Pannus, abdominal 04/04/2018 Moderate persistent asthma without complication 10/09/2016 Restless leg syndrome 01/09/2015 Bipolar 1 disorder, mixed ([facility]) 05/23/2014 Hypercholesteremia 03/27/2013 Sleep apnea 09/22/2010 Chest pain 06/11/2008 Osteoarthritis 03/01/2008 History of alcohol abuse 03/16/2006 SOCIAL HISTORY: Social History Tobacco Use Smoking status: Never Smokeless tobacco: Never Substance Use Topics Alcohol use: No Comment: Quit drinking 1 year ago, history of ETOH abuse FAMILY HISTORY: Family Status Relation Name Status Mother Alive Father Sister (Not Specified) Daughter (Not Specified) No partnership data on file Family History Problem Relation Name Age of Onset Diabetes Mother CHF Heart failure Mother Throat cancer Father Cataract, Glaucoma Heart failure Sister Asthma Daughter ACTIVE MEDICATIONS: Outpatient Medications Marked as Taking for the 03/14/24 encounter (Office Visit) with Kat Nevarez MD Medication Sig Dispense Refill acetaminophen (TYLENOL 8 HOUR) 650 mg 8 [...] mouth 1 (one) time each day. 90 each1 apixaban (Eliquis) 5 mg tablet Take 1 tablet (5 mg total) by mouth 2 (two) times a day. 180 each 1 atorvastatin (LIPITOR) 40 mg tablet Take 1 tablet (40 mg total) by mouth 1 (one) time each day. 90 each 1 budesonide-formoteroL (Symbicort) 160-4.5 mcg/actuation inhaler Inhale 2 [...] times a day if needed for muscle spasms. 15 tablet 1 docusate sodium (COLACE) 100 mg capsule Take 1 capsule (100 mg total) by mouth 2 (two) times a day. FREESTYLE LANCETS MISC To test sugars bid FreeStyle Kalyan 3 Sensor device Box = Kit = EACHANGE 1 DEVICE EVERY 14 DAYS 6 each 1 furosemide (LASIX) 40 mg tablet Take 0.5 tablets (20 mg total) by mouth 1 (one) time each day. 45 each 1 gabapentin (NEURONTIN) 800 mg tablet Take 1 tablet (800 mg total) by mouth 2 (two) times a day. 180each 0 glucose 4 gram chewable tablet Chew 4 tablets (16 g total) if needed for low blood sugar. 50 tablet0 insulin aspart (NovoLOG FlexPen) 100 unit/mL (3 mL) injection pen INJECT UNDER THE SKIN PER SLIDINGSCALE BEFORE BREAKFAST AND DINNER UP TO 30 UNITS MAX DOSE PER MEAL 30 mL 5 lurasidone (LATUDA) 120 mg tablet Take 1 tablet (120 mg total) by mouth 1 (one) time each day. 90 each 1 melatonin 10 mg tablet Take 1 tablet (10 mg total) by mouth at bedtime. melatonin 10 mg-lemon balm leaf extract 1 mg tablet 90 tablet 1 oxyCODONE-acetaminophen (PERCOCET) 5-325 mg per tablet Take [...] time each day. 30 tablet 0 [DISCONTINUED] amLODIPine (NORVASC) 5 mg tablet Take 1 tablet (5 mg total) by mouth 1 (one) time each day. [DISCONTINUED] atorvastatin (LIPITOR) 40 mg tablet Take 1 tablet (40 mg total) by mouth 1 (one) time each day. [DISCONTINUED] cyclobenzaprine (FLEXERIL) 10 mg tablet Take 1 tablet (10 mg total) by mouth 3 (three) times a day if needed for muscle spasms for up to 10 days. 15 tablet 0 [DISCONTINUED] Dexcom G7 Sensor device USE DIRECTED CHANGE SENSOR EVERY 10 DAYS 3 each 0 [DISCONTINUED] lurasidone (LATUDA) 120 mg tablet TAKE 1 TABLET BY MOUTH DAILY 30 tablet 2 ALLERGIES: Leander inhibitors, Cephalexin, Cephalexin monohydrate, Glipizide, Glucagon, Ibuprofen, Metformin, and Ropinirole PHYSICAL EXAM: Blood pressure 93/64, pulse 71, temperature 36.5 ??C (97.7 ??F), temperature source Temporal, weight 70 kg (154 lb 6.4 oz). Body mass index is 25.69 kg/m??. Plan is deferred until next visit APPEARANCE: Alert and in no acute distress, thin EYES: PERRLA, conjunctiva and sclera normal EARS: External ears normal. Canals clear. TMs normal. NOSE/SINUS: Nares normal. Septum midline. Mucosa normal. No drainage or sinus tenderness MOUTH/THROAT: no erythema, lesions, or exudates HEART: RRR with normal S1 and S2, no murmurs, no gallops, no JVD appreciated LUNG: clear to auscultation bilaterally LYMPH NODES: grossly normal LABS: Reviewed notes from discharge summary Wt Readings from Last 3 Encounters: 03/14/24 1135 70 kg (154 lb 6.4 oz) 03/12/24 0123 70.3 kg (155 lb) 03/08/24 2116 70.3 kg (155 lb) IMPRESSION: 1. Type 2 diabetes mellitus with other specified complication, with long-term current use of insulin ([facility]) 2. Chronic bilateral low back pain with bilateral sciatica 3. Osteoarthritis, unspecified osteoarthritis type, unspecified site 4. Bipolar 1 disorder, mixed ([facility]) PLAN: Type 2 diabetes mellitus with insulin Has been having periods of hypoglycemia I have asked patient to hold off on her insulin until seen by endocrinology Patient has lost a significant amount of weight and her requirements might be different She has a continuous glucose monitor and will keep an eye on her blood sugars She has glucose tablets Chronic low back pain Continue present medication regiment Osteoarthritis Continue present medication regimen Bipolar affective disorder She says she will be getting a counselor soon . continues to complain of fatigue Her medications were reviewed and renewed Return to the office in 3 months or as needed Orders Placed This Encounter Procedures GLUCOSE MONITORING CONTINUOUS ADDITIONAL ORDERS: None Kat Nevarez MD on 03/14/2024 at 5:57 PM EST documented in this encounter Plan of Treatment Upcoming Encounters Date Type Department Care Team (Late st Contact Info) Description 05/04/2024 11:00 AM EDT Procedure visit Orthopedic Surgery - [place] [address] [phone] Haley Lara MD [address] [address] 06/13/2024 10:15 AM EDT Office Visit Adult Medicine [facility] [address] [place] [address] Meenakshi Garcia PA [address] [place] [address] Scheduled Orders Name Type Priority Associated Diagnoses Orde r Schedule GLUCOSE MONITORING CONTINUOUS Procedures Routine Type 2 diabetes mellitus with other specified complication, with long-term current use of insulin (CMS/HCC) Ordered: 03/14/2024 documented as of this encounter Visit Diagnoses Diagnosis Type 2 diabetes mellitus with other specified complication, with long-term current use of insulin (CMS/HCC)- Primary Chronic bilateral low back pain with bilateral sciatica Osteoarthritis, unspecified osteoarthritis type, unspecified site Bipolar 1 disorder, mixed (CMS/HCC) documented in this encounter Discontinued Medications Medication Sig Discontinue Reason Start Date End Da te furosemide (LASIX) 20 mg tablet Take 1 tablet (20 mg total) by mouth 1 (one) time each day. Therapy completed 01/19/2024 03/14/2024 atorvastatin (LIPITOR) 40 mg tablet Take 1 tablet (40 mg total) by mouth 1 (one) time each day. Reorder 05/04/2023 03/14/2024 amLODIPine (NORVASC) 5 mg tablet Take 1 tablet (5 mg total) by mouth 1 (one) time each day. Reorder 03/14/2024 lurasidone (LATUDA) 120 mg tablet TAKE 1 TABLET BY MOUTH DAILY Reorder 01/19/2024 03/14/2024 cyclobenzaprine (FLEXERIL) 10 mg tablet Take 1 tablet (10 mg total) by mouth 3 (three) times a day if needed for muscle spasms for up to 10 days. Reorder 01/23/2024 03/14/2024 Dexcom G7 Sensor device USE DIRECTED CHANGE SENSOR EVERY 10 DAYS Formulary change 03/09/2024 03/14/2024 documented as of this encounter Care Teams Branch Banker Relationship Specialty Start Date End Date Kat Nevarez MD [address] [place] [id number] PCP - General Internal Medicine 01/18/10 documented as of this encounter
--- OUTSIDE RECORDS SUMMARY | 2024-04-07 13:21 | XMS_ITS | Continuity of Care Document ---
Author Organization [place] [facility] Address [address] [place] [phone] Care Team Providers Care Gaming Investigator Name Role Phone VANDANA DIETRICH Primary Care Provide r HIM CCA OTHER Assessment Encounter Date Assessment Date Assessment LastModified by Organization Details LastModified Time 03/08/2024 03/08/2024 I provided real -time medical direction via phone for this encounter and was available for additional phone-based assistance as needed. I have reviewed and agree with the Assessment and Plan as documented by the Energy Efficiency Finance Manager. Patient given the opportunity to ask questions. Our service contacted for an assessment of: Hypoglycemia As per above, patient with recurrent hypoglycemia specifically over the past 24 to 48 hours. Needs to have adjustments to medication regimen however current medication resulting in recurrent hypoglycemia. Patient aware of symptoms. Good p.o. intake. Unable to avoid hypoglycemic episodes related to p.o. intake of sugar. Per sketch artist on the scene, vital signs are stable however blood glucoses low on check. Patient is symptomatic. Impression: Hypoglycemia and polypharmacy with medications to control diabetes mellitus Plan: Expect call made to ED Allergies: [facility] Not available 03/08/2024 22:10:11 Plan of Treatment Reminders Order Date Submit Date Provider Last Modified By Organization Details Last Modified Time Details Appointments None recorded . Lab BMP, serum or plasma 025 03/08/19 [facility] [address] [place] [address], [phone], 08:05:32 Referral None recorded . Procedures None recorded . Surgeries None recorded . Imaging None recorded . Medication Orders None recorded . Patient TargetsNo targets recorded. Patient InstructionsNo instructions [...] Not available Not available Not available 12/07/2023 16471 6 RxNorm Not Available [facility] - production [...] Not Available Not Available Not Avai lable BinaxNOW COVID-19 Ag Self Test kit USE DIRECTED ON PACKAGE active Not Available Not Available No t Available Vitals Date Recorded Respiratory rate Body temperature Oxygen saturation Oxygen saturation in Arterial blood by Pulse oximetry Heart rate Systolic blood pressure Diastolic blood pressure Provider Name and Address Organization Details Last Updated DateTime 98 /min 98.2 [degF] 16 % 16 % 73 /min 132 mm[Hg] 80 mm[Hg] Not Available [facility] - production 22:03:27 Social History None recorded. Functional Status None recorded. Mental Status None recorded. Family History Nothing Reported. Medical History No medical history recorded. Gynecological HistoryNo gynecological history recorded. Obstetrics History GPAL:G 0 P 0 0 0 0 Past Encounters Encounter ID Performer Location Encounter Start Date Encounter Closed Date Diagnosis/Indication Diagnosis SNOMED-CT Code Diagnosis ICD10 Code Diagnosis Note [id number] Nneka Piedra MD Main - [facility] [address] [place] [phone] 03/08/2024 22:03:26 03/08/2024 23:59:53 Hypoglycemia 471659271 E16.2 Health Concerns Section Related Observation LastModified by Organization Detai ls LastModified Time None Recorded Concern Status LastModified by Organization Details LastModified Time None Recorded Payers Encounter Date Sequence Insurance Name Policy Number Policy Tenorio Covered Member ID Tenorio Member ID Guarantor Name 03/08/2024 1 [facility] - DOS ON OR AFTER 2022 - DUAL ELIGIBLE - [facility] OPTIONS AND ONE CARE (MEDICARE REPLACEMENT/AD VANTAGE - HMO) Claudette Stapleton [id number] Claudette Stapleton Notes Date Note Type Note Provider Name and Address Organization Details Recorded Time 03/08/2024 text/html CRC Nurse Triage Notes (Kanchan [...] Type 2 PMH Reviewed at 03/08/2024 - 19:37 Allergies Reviewed at 03/08/2024 - 19:37 Comments: Faculty Dean verified the name//address and phone number. Pt [...] s/s and seek emergency treatment if needed Energy Efficiency Finance Manager Organization Information for Cristian Wang Jamel BRYAN Business Legal Name: [employer]? Address: [address] [place] [address], [place] [address], Mule Operator: Madan ALBERT No.: [id number] Energy Efficiency Finance Manager POC Test Results from Cristian Wang Blood Glucose Measurement (20:22:04) Blood Glucose: 53 mg/dL Blood Glucose Measurement (20:26:33) Blood Glucose: 66 mg/dL .................. .................. .................. .................. .................. .................. .................. ............... Energy Efficiency Finance Manager Note From Cristian Wang: Dispatched to the [...] shaky and advised she was really dizzy. [facility] advised of the situation quickly while I gave the Pt a tube of oral glucose as her POC blood glucose was 53. Pts pushed their life alert button and asked for help while I took vitals and started an IV (18g L AC). Pt finished oral glucose and rechecked her blood sugar (66)-still shaky but less dizzy. [facility] ([facility] arrived. Pt transfer of care and report given without issue. ALL times are approx. .................. .................. .................. .................. .................. .................. .................. ............... [facility] Consulted: Nneka Piedra .................. .................. .................. .................. .................. .................. .................. ............... Disposition: Gabby Piedra MD [address] [facility],[address], [place], [address], [employer] 03/08/2024 22:10:40 OBGyn Episode No OBEpisode recorded.
--- OUTSIDE RECORDS SUMMARY | 2024-04-07 13:21 | XMS_ITS | Encounter Summary ---
Author Organization [facility] Address [address] [place] [address] Care Team Providers Care Quality Manager Name Role Phone Kat Nevarez MD Primary Care Prov ider Reason for Visit * Reason Onset Date Comments Faxed Order [id number] 03/07/2024 Encounter Details Date Type Department Care Team ([facility] st Contact Info) Description 03/07/2024 Telephone Adult Medicine - [place] [address] [place] [phone] Kat Nevarez MD [address] [place] [address] Faxed Order [id number] Social History Tobacco Use Types Packs/Day Years [...] for your loved ones. For example, child care centre manager or elderly care for an older adult? [...] 1:04 AM EST Desiree Craven RN * Do you have serious difficulty [...] documented in this encounter Progress Notes * Karen Ac MA - 03/08/2024 11:[address] Govea to sign, fax and file. * Marika Landa - 03/07/2024 12:39 PM EST PLEASE CLOSE MESSAGE WHEN ORDER HAS BEEN FAXED Faxed order [id number] received from [facility], requesting signature from provider. Please sign and fax back to [phone]. Order in [place] folder documented in this encounter Plan of Treatment Upcoming Encounters Date Type Department Care Team (Late st Contact Info) Description 05/04/2024 11:00 AM EDT Procedure visit Orthopedic Surgery - [place] [address] [phone] Haley Lara MD [address] [address] 06/13/2024 10:15 AM EDT Office Visit Adult Medicine [facility] [address] [place] [address] Meenakshi Garcia PA [address] [place] [address] documented as of this encounter Visit Diagnoses Not on filedocumented in this encounter Care Teams Quality Manager Relationship Specialty Start Date End Date Kat Nevarez MD 230 [place] [address] PCP - General Internal Medicine 01/18/10 documented as of this encounter
--- OUTSIDE RECORDS SUMMARY | 2024-04-07 13:21 | XMS_ITS | Encounter Summary ---
Author Organization [facility] Address [address] [place] [address] Care Team Providers Care Forepart Reducer Name Role Phone Kat Nevarez MD Primary Care Prov ider Reason for Visit * Reason Onset Date Comments Forms/questionnaires 03/07/2024 [facility] -03/21/2024 Encounter Details Date Type Department Care Team (Late st Contact Info) Description 03/07/2024 Telephone Adult Medicine [facility] [address] [place] [address] Kat Nevarez MD 230 [place] [address] Forms/questionnaires ([facility] 01/22/2024-03/21/2024) Social History Tobacco Use Types Packs/Day Years [...] care for your loved ones. For example, early childhood education worker or elderly care for an older [...] Notes * Angela Felix MA - 03/08/2024 2:32 PM EST Order encounter created. * Angela Felix MA - 03/07/2024 2:52 PM EST Placed in pcp's in basket. * Marika Landa - 03/07/2024 12:52 PM EST HOME HEALTH CERTIFICATION AND PLAN OF CARE DATE RECEIVED:03/06/2024 AGENCY:[facility] CERT DATES:01/22/2024-03/21/2024 FAX NUMBER:[phone] LOCATION OF [facility]:front end specialist forms bin documented in this encounter Plan of Treatment Upcoming Encounters Date Type Department Care Team (Late st Contact Info) Description 05/04/2024 11:00 AM EDT Procedure visit Orthopedic Surgery - [place] [address] [address] Haley Lara MD [address] [address] 06/13/2024 10:15 AM EDT Office Visit Adult Medicine - [place] [address] [place] [address] Meenakshi Garcia PA [address] [place] [address] documented as of this encounter Visit Diagnoses Not on filedocumented in this encounter Care Teams Forepart Reducer Relationship Specialty Start Date End Date Kat Nevarez MD [address] [place] [address] PCP - General Internal Medicine 01/18/10 documented as of this encounter
--- OUTSIDE RECORDS SUMMARY | 2024-04-07 13:21 | XMS_ITS | Encounter Summary ---
Author Organization [facility] Address [address] [place] [address] Care Team Providers Care Integrity Consultant Name Role Phone Kat Nevarez MD Primary Care Prov ider Reason for Visit * Reason Onset Date Comments Forms/questionnaires 03/23/2024 [facility] 03/22/19-05/20/2024 Encounter Details Date Type Department Care Team ([facility] st Contact Info) Description 03/23/2024 Telephone Adult Medicine [facility] [address] [place] [address] Kat Nevarez MD [address] [place] [address] Forms/questionnaires ([facility] 03/22/2024-05/20/2024) Social History Tobacco Use Types Packs/Day Years [...] for your loved ones. For example, child advocate or elderly care for an older adult? [...] Assessment Author No 01/23/2024 1:04 AM Desiree Boland RN * Do you have serious difficulty [...] Progress Notes * Angela Felix MA - 03/24/2024 3:00 PM EST Order encounter created. * Angela Felix MA - 03/24/2024 8:52 AM EST Placed in pcp's in basket. * Marika Ladna - 03/23/2024 2:11 PM EST HOME HEALTH CERTIFICATION AND PLAN OF CARE DATE RECEIVED:03/21/2024 AGENCY:[facility] CERT DATES:03/22/2024-05/20/2024 FAX NUMBER:[phone] LOCATION OF [facility]:front desk administrator forms bin documented in this encounter Plan of Treatment Upcoming Encounters Date Type Department Care Team (Late st Contact Info) Description 05/04/2024 11:00 AM EDT Procedure visit Orthopedic Surgery - [place] [address] [address] Haley Lara MD [address] [address] 06/13/2024 10:15 AM EDT Office Visit Adult Medicine - [place] [address] [place] [address] Meenakshi Garcia PA [address] [place] [address] documented as of this encounter Visit Diagnoses Not on filedocumented in this encounter Care Teams Integrity Consultant Relationship Specialty Start Date End Date Kat Nevarez MD 230 [place] [address] PCP - General Internal Medicine 01/18/10 documented as of this encounter
--- OUTSIDE RECORDS SUMMARY | 2024-04-07 13:21 | XMS_ITS ---
Author Organization [facility] Address [address] [place] [address] Care Team Providers Care Final Assembly Worker Name Role Phone VANDANA DIETRICH Primary Care Provide r Bishnu Titus Jr, Lobo Unavailable REASON FOR VISIT pathology Encounters Encounter Location Date Provider Diagnosis [facility] [address] [place] [phone] 09/16/2023 Lobo Titus Jr PLAN OF TREATMENT No Information
--- OUTSIDE RECORDS SUMMARY | 2024-04-07 13:21 | XMS_ITS | Encounter Summary ---
Author Organization [facility] Address [address] [place] [address] Care Team Providers Care Clerk To Justice Name Role Phone Kat Nevarez MD Primary Care Prov ider Reason for Visit * Reason Onset Date Comments Office Notes 03/14/2024 [facility] Call 03/14/2024 Encounter Details Date Type Department Care Team ([facility] st Contact Info) Description 03/14/2024 Telephone Adult [facility] [address] [place] [phone] Kat Nevarez MD 230 [place] [address] Office Notes; [facility] Call Social History Tobacco Use Types Packs/Day Years [...] care for your loved ones. For example, children's court magistrate or elderly care for an older adult? [...] documented in this encounter Progress Notes * Norm Fitzpatrick RN - 03/15/2024 8:54 AM EST faxed * Richard Lira - 03/14/2024 4:20 PM EST Lauren from [facility] is calling for us to fax over the office notes from today's visit with to [facility] F: [phone], Attn Lauren documented in this encounter Plan of Treatment Upcoming Encounters Date Type Department Care Team (Late st Contact Info) Description 05/04/2024 11:00 AM EDT Procedure visit Orthopedic Surgery - [facility] [address] [phone] Haley Lara MD [address] [address] 06/13/2024 10:15 AM EDT Office Visit Adult Medicine [address] [address] Meenakshi Garcia PA [address] [place] [address] documented as of this encounter Visit Diagnoses Not on filedocumented in this encounter Care Teams Clerk To Justice Relationship Specialty Start Date End Date Kat Nevarez MD [address] [place] [address] PCP - General Internal Medicine 01/18/10 documented as of this encounter
--- OUTSIDE RECORDS SUMMARY | 2024-04-07 13:21 | XMS_ITS | Encounter Summary ---
Author Organization [facility] Address [address] [place] [address] Care Team Providers Care Orthopedic Shoe Fitter Name Role Phone Kat Nevarez MD Primary Care Prov ider Reason for Referral * Neurology (Routine) - Closed Specialty Diagnoses / Procedures Referred By Contac t Referred To Contact Neurology Diagnoses Paresthesia of skin Procedures EMG two limbs Amarilis Shelton PA [address] [address] Phone: tel: fax: [facility] [address] [place] [phone] Phone: tel: Referral ID Status Reason Start Date Expiration Date Visits Re quested Visits Authorized [id number] Closed 12/01/2023 11/30/2024 1 1 Reason for Visit * Neurology (Routine) - Closed Specialty Diagnoses / Procedures Referred By Contac t Referred To Contact Neurology Diagnoses Paresthesia of skin Procedures EMG two limbs Amarilis Shelton PA [address] [address] Phone: tel: fax: [facility] [address] [place] [address] Phone: tel: Referral ID Status Reason Start Date Expiration Date Visits Re quested Visits Authorized [id number] Closed 12/01/2023 11/30/2024 1 1 Encounter Details Date Type Department Care Team (Latest Contact Info) Description 03/07/2024 2:42 PM EST - 03/07/2024 11:59 PM EST Hospital Encounter [facility] [address] [place] [address] Paresthesia of skin Discharge Disposition: Home or Self Care Social [...] for your loved ones. For example, child welfare manager or elderly care for an older [...] Desiree Gomez RN documented in this encounter Medications at Time [...] CAPSULE BY MOUTH DAILY 90 capsule 02/17/2024 cyanocobalamin (VITAMIN B-12) 100 mcg tablet Take 0.5 tablets (50 mcg total) by mouth 1 (one) time each day. docusate sodium (COLACE) 100 mg capsule Take 1 capsule (100 mg total) by mouth 2 (two) times a day. FREESTYLE LANCETS MISC To test sugars bid 10/01/2021 furosemide (LASIX) 40 mg tablet Take 0.5 tablets (20 mg total) by mouth 1 (one) time each day. 45 each 1 01/11/2024 5 gabapentin (NEURONTIN) 800 mg tablet Take 1 tablet (800 mg total) by mouth 2 (two) times a day. 180 each 01/11/2024 5 melatonin 10 mg tablet Take 1 tablet [...] mouth 2 (two) times a day. 05/14/2023 amLODIPine (NORVASC) 5 mg tablet Take 1 tablet (5 mg total) by mouth 1 (one) time each day. 5 atorvastatin (LIPITOR) 40 mg tablet Take 1 tablet (40 mg total) by mouth 1 (one) time each day. 05/04/2023 5 buPROPion SR (WELLBUTRIN SR) 100 mg 12 hr tablet TAKE 1 TABLET BY MOUTH EVERY MORNING 90 tablet 03/03/2024 5 clonazePAM (KlonoPIN) 1 mg tablet Take 1 tablet (1 mg total) by mouth 3 (three) times a day if needed for anxiety. 07/21/2023 5 cyclobenzaprine (FLEXERIL) 10 mg tablet Take 1 tablet (10 mg total) by mouth 3 (three) times a day if needed for muscle spasms for up to 10 days. 15 tablet 01/23/2024 5 FreeStyle Kalyan 3 Sensor device CHANGE 1 DEVICE EVERY 14 DAYS 01/04/2024 5 furosemide (LASIX) 20 mg tablet Take 1 tablet (20 mg total) by mouth 1 (one) time each day. 30 each 11 01/19/2024 5 insulin aspart (NovoLOG FlexPen) 100 unit/mL (3 mL) injection penIndications:T ype 2 diabetes mellitus without complication, with long-term current use of insulin ([facility]) INJECT UNDER THE SKIN PER SLIDING SCALE BEFORE BREAKFAST AND DINNER UP TO 30 UNITS MAX DOSE PER MEAL 30 mL 5 02/10/2024 5 lurasidone (LATUDA) 120 mg tablet TAKE 1 TABLET BY MOUTH DAILY 30 tablet 2 01/19/2024 5 oxyCODONE-acetam inophen (PERCOCET) 5-325 mg per tablet Take 1 tablet by mouth 4 (four) times a day for 28 days. Max Daily Amount: 4 tablets 112 tablet 02/04/2024 5 traZODone (DESYREL) 100 mg tablet Take 2 tablets (200 mg total) by mouth at bedtime. 01/11/2024 5 vortioxetine (TRINTELLIX) 20 mg tablet Take 1 tablet (20 mg total) by mouth 1 (one) time each day. 30 tablet 02/04/2024 5 documented as of this encounter Discharge Disposition Disposition Code Departure Means Destination Home or Self Care documented in this encounter Plan of Treatment Upcoming Encounters Date Type Department Care Team (Late st Contact Info) Description 05/04/2024 11:00 AM EDT Procedure visit Orthopedic Surgery - [place] [address] [phone] Haley Lara MD [address] [address] 06/13/2024 10:15 AM EDT Office Visit Adult Medicine [facility] [address] [place] [address] Meenakshi Garcia PA [address] [place] [address] documented as of this encounter Procedures Procedure Name Priority Date/Time Associated Diagnosis Comments EMG 2 LIMBS Routine 03/07/2024 3:21 PM EST Paresthesia of skin documented in this encounter Results * EMG two limbs (03/07/2024 3:21 PM EST) Narrative Cristy Saha MD - 03/07/2024 3:38 PM EST Please see the attached report. us Amarilis [facility] ORDERABLES Final Re sult documented in this encounter Visit Diagnoses Diagnosis Paresthesia of skin documented in this encounter Care Teams Orthopedic Shoe Fitter Relationship Specialty Start Date End Date Kat Nevarez MD [address] [place] [address] PCP - General Internal Medicine 01/18/10 documented as of this encounter
--- OUTSIDE RECORDS SUMMARY | 2024-04-07 13:21 | XMS_ITS | Encounter Summary ---
Author Organization [facility] Address [address] [place] [address] Care Team Providers Care Floor Steward/Stewardess Name Role Phone Kat Nevarez MD Primary Care Prov ider Encounter Details Date Type Department Care Team (Latest Contact Info) Description 03/24/2024 Billing Patient Not Present Adult Medicine - [place] [address] [place] [address] Kat Wang MD 230 [place] [address] Perforation of intestine (nontraumatic) (CMS/[facility]) (Primary Dx); Type 2 diabetes mellitus with diabetic polyneuropathy, unspecified whether exterminator helper termite insulin use (CMS/[facility]); Essential (primary) hypertension; Uncomplicated asthma, unspecified asthma severity, unspecified whether persistent; Bipolar affective disorder, remission status unspecified (CMS/[facility]); Pure hypercholesterolemia Social History Tobacco Use [...] your loved ones. For example, early childhood coordinator or elderly care for an older adult? [...] Felix MA - 03/24/2024 3:00 PM EST Start of Care Date: 07/26/23 Date of certification period: 03/22/2024-05/20/2024 Date of service = signature date 03/24/2024 Hospice patient: no Home Care Agency: [facility] Recertification Code [id number] Initial Code G0180 documented in this encounter Plan of Treatment Upcoming Encounters Date Type Department Care Team (Late st Contact Info) Description 05/04/2024 11:00 AM EDT Procedure visit Orthopedic Surgery - [place] [address] [phone] Haley Lara MD [address] [address] 06/13/2024 10:15 AM EDT Office Visit Adult Medicine [address] [address] Meenakshi Garcia PA [address] [place], [place] documented as of this encounter Visit Diagnoses Diagnosis Perforation of intestine (nontraumatic) ([facility])- Primary Type 2 diabetes mellitus with diabetic polyneuropathy, unspecified whether care home insulin use ([facility]) Essential (primary) hypertension Unspecified essential hypertension Uncomplicated asthma, unspecified asthma severity, unspecified whether persistent Bipolar affective disorder, remission status unspecified ([facility]) Pure hypercholesterolemia documented in this encounter Care Teams Floor Steward/Stewardess Relationship Specialty Start Date End Date Kat Nevarez MD [address] [place], [place] PCP - General Internal Medicine 01/18/10 documented as of this encounter
--- OUTSIDE RECORDS SUMMARY | 2024-04-07 13:21 | XMS_ITS | Encounter Summary ---
Author Organization [facility] Address [address] [place] [address] Care Team Providers Care Operations Expert Name Role Phone Kat Nevarez MD Primary Care Prov ider Reason for Visit * Reason Onset Date Comments Faxed Order [id number] 03/20/2024 Encounter Details Date Type Department Care Team ([facility] st Contact Info) Description 03/20/2024 Telephone Adult Medicine - [place] [address] [place] [phone] Kat Nevarez MD [address] [place] [address] Faxed Order [id number] Social History Tobacco Use Types Packs/Day Years [...] for your loved ones. For example, child health associate or elderly care for an older adult? [...] documented in this encounter Progress Notes * Marika Landa - 03/20/2024 3:10 PM EST PLEASE CLOSE MESSAGE WHEN ORDER HAS BEEN FAXED Faxed order [id number] received from [facility], requesting signature from provider. Please sign and fax back to [phone]. Order in orange folder documented in this encounter Plan of Treatment Upcoming Encounters Date Type Department Care Team (Late st Contact Info) Description 05/04/2024 11:00 AM EDT Procedure visit Orthopedic Surgery - [place] [address] [address] Haley Lara MD [address] [address] 06/13/2024 10:15 AM EDT Office Visit Adult Medicine - [place] [address] [place] [address] Meenakshi Garcia PA [address] [place] [address] documented as of this encounter Visit Diagnoses Not on filedocumented in this encounter Care Teams Operations Expert Relationship Specialty Start Date End Date Kat Nevarez MD [address] [place] [address] PCP - General Internal Medicine 01/18/10 documented as of this encounter
--- OUTSIDE RECORDS SUMMARY | 2024-04-07 13:21 | XMS_ITS | Encounter Summary ---
Author Organization [facility] Address [address] [place] [address] Care Team Providers Care Slot Ambassador Name Role Phone Kat Nevarez MD Primary Care Prov ider Reason for Referral * Consultation (Routine) - Pending Review Specialty Diagnoses / Procedures Referred By Jeana samuels Referred To Contact Endocrinology Diagnoses Hypoglycemia Keli Brown PA [address] [place] [address] Phone: tel: fax: Referral ID Status Reason Start Date Expiration Date Visits Requested Visits Authorized [id number] Pending Review Specialty Services Required 03/16/2024 03/16/2025 1 1 Reason for Visit * Reason Comments Diabetes Encounter Details Date Type Department Care Team (Late st Contact Info) Description 03/16/2024 10:00 AM EST Office Visit Endocrinology - [address] [phone] Keli Brown PA [address] [place] [address] Hypoglycemia (Primary Dx) Social History Tobacco Use Types Packs/Day Years [...] ones. For example, director of early childhood education or elderly care for an older adult? [...] Sign Reading Time Taken Comments Blood Pressure 118/64 03/16/2024 10:22 AM EST C Pulse 64 03/16/2024 10:22 AM EST Temperature 36.2 ??C (97.2 ??F) 03/16/2024 1 0:22 AM EST Respiratory Rate - - Oxygen Saturation 96% 03/16/2024 10: 22 AM EST Inhaled Oxygen Concentration - - Weight 69.8 kg (153 lb 12.8 oz) 025 10:22 AM EST Height 162.6 cm (5' 4 ) 03/16/2024 10:2 2 AM EST Body Mass Index 26.4 03/16/2024 10:22 AM EST documented in this encounter Functional [...] Desiree Gomez RN documented in this encounter Patient Instructions * Attachments The following attachments cannot be sent through Care Everywhere. * Dumping Syndrome (Croatian) documented in this encounter Progress Notes * Deandra Franklin MA - 03/16/2024 10:00 AM EST BS - 96 - Per CGM - Fasting * DEBI Encinas - 03/16/2024 10:00 AM EST CHIEF COMPLAINT: Diabetes IDENTIFIER: Claudette Stapleton is a 63 y.o. old female. HPI: Patient with past medical history of COPD, hypertension, hyperlipidemia, bipolar disorder, diabetes, and DVT. Last seen about a year ago. Type 2 diabetes: Hemoglobin A1c: Lab Results Component Value Date HGBA1C 4.8 10/20/2023 At the time of my last visit she was doing NovoLog sliding scale and Ozempic. CGM data demonstrated1% hypoglycemia at that time. I told her to only use her short acting insulin if her sugars before meals were 150 or higher Seen since our last visit Patient presented to the ER recently for hypoglycemia. Went to the ER with concerns of hypoglycemiain the 50s. Was treated with dextrose. Patient had been taking short acting insulin. Since hospital discharge this has been discontinued She has not been taking her Ozempic. She is using CGM Average glucose 99 GMI is 5.7 Time in range 84% Time above 1% Time below 70 is 14% Time below 54 1% Patient does me that she had gastric bypass surgery in May. I have not seen her since her surgery. At the time of our last visit her weight was 211. Current weight right now 153 Has lost significant amount of weight. States that she does not eat at all since surgery. States she can go days without eating She tells me that she does not feel any hypoglycemia episodes. Occasionally she will consist for sensor data with fingerstick data. Sensor data does not show numbers below 50. She has been without any diabetic medication over the last 2 weeks and during those times she is still demonstrating frequent hypoglycemia episodes per sensor data Mentions she has not been following up with her gastric bypass provider Wt Readings from Last 3 Encounters: 03/16/24 69.8 kg (153 lb 12.8 oz) 03/14/24 70 kg (154 lb 6.4 oz) 03/12/24 70.3 kg (155 lb) ROS: GENERAL: No malaise, significant weight loss or fever HEENT: No changes in hearing or vision, nose bleeds or other nasal problems RESPIRATORY: No cough, wheezing or shortness of breath CARDIOVASCULAR: No chest pain, leg swelling or palpitations GI: No abdominal discomfort, blood in stools or black stools ENDOCRINE: See HPI MUSCULOSKELETAL: No joint pain or swelling, back pain, or muscle pain. NEURO: No persistent headache, syncope, seizures, weakness or numbness PAST MEDICAL HISTORY: Patient Active Problem List Diagnosis Date Noted Alcohol abuse 01/11/2024 [place] [place] 01/11/2024 [place] [place] 01/11/2024 RYAN (obstructive sleep apnea) 01/11/2024 Bradycardia 12/27/2023 Class 2 obesity due to excess calories without serious comorbidity with body mass index (BMI) of 35.0 to 35.9 in adult 11/18/2023 Peripheral autonomic neuropathy due to DM [place] [place] 10/06/2022 Single subsegmental pulmonary embolism without acute cor pulmonale [place] [place] 08/10/2022 Chronic bilateral low back pain with bilateral sciatica 07/21/2022 Pain of left hip 07/21/2022 Constipation 04/14/2021 Medial meniscus tear 02/02/2019 HTN (hypertension) 01/13/2019 Pannus, abdominal 04/04/2018 Moderate persistent asthma without complication 10/09/2016 Restless leg syndrome 01/09/2015 Bipolar 1 disorder, mixed ([facility]) 05/23/2014 Hypercholesteremia 03/27/2013 Sleep apnea 09/22/2010 [...] Outpatient Medications Marked as Taking for the 03/16/24 encounter (Office Visit) with DEBI Encinas Medication Sig Dispense Refill acetaminophen (TYLENOL 8 [...] needed for low blood sugar. 50 tablet0 lurasidone (LATUDA) 120 mg tablet Take 1 [...] (one) time each day. 30 tablet 0 ALLERGIES: Leander inhibitors, Cephalexin, Cephalexin monohydrate, Glipizide, Glucagon, Ibuprofen, Metformin, and Ropinirole PHYSICAL EXAM: Blood pressure 118/64, pulse 64, temperature 36.2 ??C (97.2 ??F), temperature source Temporal, height 1.626 m (64 ), weight 69.8 kg (153 lb 12.8 oz), SpO2 96%. Body mass index is 26.4 kg/m??. Plan isdeferred until next visit APPEARANCE: Alert and in no acute distress HEART: RRR with normal S1 and S2, no murmurs, no gallops, NECK: no thyroid enlargement, nodules or masses felt. LUNG: clear to auscultation NEURO: Awake, alert and oriented x 3 LABS: Lab Results Component Value Date HGBA1C 4.8 10/20/2023 CHOL 130 10/20/2023 LDL 49 10/20/2023 HDL 46 10/20/2023 TRIG 176 (A) 10/20/2023 Lab Results Component Value Date GLUCOSE 82 03/12/2024 Lab Results Component Value Date TSH 0.89 12/28/2023 IMAGING: IMPRESSION: 1. Hypoglycemia PLAN: Patient presents to the office for follow-up on hypoglycemia Review hospital records Previous labs and CGM. CGM demonstrates frequent episodes of hypoglycemia. She had gastric bypass surgery and has lost significant amount of weight. Discussed with patient that she needs to continue being off all diabetic medication. Seems although she stopped her NovoLog she is still having hypoglycemia Unguinal refer patient to [facility] endocrinology for hypoglycemia workup She did recently had a CAT scan of the abdomen did not describe any pancreatic mass. Will recheck labs including insulin levels, C-peptide We spent most of the visit discussing hypoglycemia treatment plan. Importance of patient not going prolonged periods of time without eating. Seems she states that she goes even 2 days without eating anything. Discussed this is extremely dangerous and will prone her to more severe episodes of hypoglycemia I did not order glucagon because it has listed in her chart as an allergic reaction. Patient cannotgive me more information regarding this. I tried searching her chart to see if this is a true allergic reaction, but was not able to find any information about this. Importance of caring with her fast acting glucose always discussed. Encouraged them to buy glucose gel at the pharmacy. She is here with her and we discussed treatment of hypoglycemia Encourage patient to eat small amounts of meals throughout the day. Discussed dietary changes for possible dumping syndrome. Patient to give us a call if hypoglycemia continues, but referred to [facility] endocrinology for further evaluation Also discussed importance of confirming hypoglycemia on CGM with fingerstick readings All questions and concerns were addressed. Patient understands and agrees with this treatment plan.Patient was reminded to call or return to the office if any new or existing problems arise This document was made using voice recognition software. It may contain some errors in grammar or syntax Medication and lab orders: Hypoglycemia (Primary) - Ambulatory referral to Endocrinology; Future - Insulin, fasting; Future - C-peptide; Future - Basic metabolic panel; Future - Beta hydroxybutyrate; Future DEBI Encinas on 03/16/2024 at 12:16 PM EST documented in this encounter Plan of Treatment Upcoming Encounters Date Type Department Care Team (Late st Contact Info) Description 05/04/2024 11:00 AM EDT Procedure visit Orthopedic Surgery - [place] [address] [facility] [address] [place] [address] Haley Lara MD 175 [facility] [address] [place] [address] 06/13/2024 10:15 AM EDT Office Visit Adult Medicine [facility] [address] [place] [address] Meenakshi Garcia PA [address] [place] [address] Scheduled Referrals Name Type Priority Associated Diagnoses Order Schedule Ambulatory referral to Endocrinology Outpatient Referral Routine Hypoglycemia 1 Occurrences starting 03/16/2024 until 03/16/2025 documented as of this encounter Results * Beta hydroxybutyrate (03/16/2024 11:22 AM EST) Pathologist [facility] Beta-Hydroxybu tyrate 1.3 0.2 - 2.8 mg/dL LAB CHEMISTRY METHOD 03/16/2024 2:57 PM EST [facility] Blood Venous blood specimen / Unknown Venipuncture / Unknown 03/16/2024 11:22 AM EST 03/16/2024 11:22 AM EST Keli CARRERA LAB BLOOD ORDERABLES Final Result [facility] [address] [place] [address], * Basic metabolic panel (03/16/2024 11:22 AM EST) [facility] Sodium 142 133 - 145 mmol/L LAB CHEMISTRY METHOD 03/16/2024 2:57 PM EST [facility] Potassium 3.5 3.5 - 5.5 mmol/L LAB CHEMISTRY METHOD 03/16/2024 2:57 PM [facility] Chloride 109 96 - 110 mmol/L LAB CHEMISTRY METHOD 03/16/2024 2:57 PM [facility] CO2 26 21 - 32 mmol/L LAB CHEMISTRY METHOD 03/16/2024 2:57 PM [facility] Anion Gap 7 3 - 11 LAB CHEMISTRY METHOD 03/16/2024 2:57 PM [facility] Glucose 82 70 - 100 mg/dL LAB CHEMISTRY METHOD 03/16/2024 2:57 PM [facility] BUN 9 5 - 25 mg/dL LAB CHEMISTRY METHOD 03/16/2024 2:57 PM [facility] Creatinine 0.92 0.50 - 1.10 mg/dL LAB CHEMISTRY METHOD 03/16/2024 2:57 PM [facility] eGFR 70 >=60 mL/min/1. 73m2 LAB CHEMISTRY METHOD 03/16/2024 2:57 PM [facility] Comment:Calculation based on the??Chronic Kidney Disease Epidemiology Collaboration (CKD-EPI) equation refit??without adjustment for race. BUN/Creatinine Ratio 9.8 LAB CHEMISTRY METHOD 03/16/2024 2:57 PM [facility] Calcium 8.8 8.5 - 10.5 mg/dL LAB CHEMISTRY METHOD 03/16/2024 2:57 PM [facility] Blood Venous blood specimen / Unknown Venipuncture / Unknown 03/16/2024 11:22 AM EST 03/16/2024 11:22 AM EST us Keli CARRERA LAB BLOOD ORDERABLES Final Result [facility] [address] [place] [address], * C-peptide (03/16/2024 11:22 AM EST) C-Peptide 1.26 0.80 - 3.90 ng/mL LAB CHEMISTRY METHOD 03/16/2024 3:46 PM EST [facility] Blood Venous blood specimen / Unknown Venipuncture / Unknown 03/16/2024 11:22 AM EST 03/16/2024 11:22 AM EST Keli CARRERA LAB BLOOD ORDERABLES Final Result Performing Organization Address [facility]/ZIP Co de Phone Number [facility] [address] [place] [address], [place] [phone] * (ABNORMAL) Insulin, fasting (03/16/2024 11:22 AM EST) Insulin 2.6(L) 3.0 - 25.0 mcIU/mL LAB CHEMISTRY METHOD 03/16/2024 3:50 PM EST [facility] Blood Venous blood specimen / Unknown Venipuncture / Unknown 03/16/2024 11:22 AM EST 03/16/2024 11:22 AM EST Narrative [facility] - 03/16/2024 3:50 PM EST Insulin reference range based on fasting status. ??Insulin values vary in non- fasting individuals. us Keli CARRERA LAB BLOOD ORDERABLES Final Result Performing Organization Address [facility] de Phone Number [facility] [address] [place] [address], [place] [phone] documented in this encounter Visit Diagnoses Diagnosis Hypoglycemia- Primary Hypoglycemia, unspecified documented in this encounter Discontinued Medications Medication Sig Discontinue Reason Start Date End Da te insulin aspart (NovoLOG FlexPen) 100 unit/mL (3 mL) injection penIndications:Type 2 diabetes mellitus without complication, with long-term current use of insulin ([facility]) INJECT UNDER THE SKIN PER SLIDING SCALE BEFORE BREAKFAST AND DINNER UP TO 30 UNITS MAX DOSE PER MEAL Discontinued by another clinician 02/10/2024 03/16/2024 documented as of this encounter Care Teams Slot Ambassador Relationship Specialty Start Date End Date Kat Nevarez MD [address] [place] [id number] PCP - General Internal Medicine 01/18/10 documented as of this encounter
--- OUTSIDE RECORDS SUMMARY | 2024-04-07 13:21 | XMS_ITS | Encounter Summary ---
Author Organization [facility] Address [address] [place] [address] Care Team Providers Care Extrusion Process Operator Name Role Phone Kat Nevarez MD Primary Care Prov ider Reason for Visit * Reason Onset Date Comments Faxed Order 03/29/2024 Faxed Order [id number] 03/29/2024 Encounter Details Date Type Department Care Team (Late st Contact Info) Description 03/29/2024 Telephone Adult Medicine [facility] [address] [place] [address] Kat Nevarez MD [address] [place] [address] Faxed Order; Faxed Order [id number] Social History Tobacco Use Types Packs/Day Years [...] your loved ones. For example, early childhood special educator or elderly care for an older adult? [...] in this encounter Progress Notes * Marika Lanad - 03/29/2024 1:57 PM EST PLEASE CLOSE MESSAGE WHEN ORDER HAS BEEN FAXED Faxed order [id number] received from [facility] Caregivers, requesting signature from provider. Please sign and fax back to [phone]. Order in orange folder documented in this encounter Plan of Treatment Upcoming Encounters Date Type Department Care Team (Late st Contact Info) Description 05/04/2024 11:00 AM EDT Procedure visit Orthopedic Surgery - [place] [address] [address] Haley Lara MD [address] [address] 06/13/2024 10:15 AM EDT Office Visit Adult Medicine [facility] [address] [place] [address] Meenakshi Garcia PA [address] [place] [address] documented as of this encounter Visit Diagnoses Not on filedocumented in this encounter Care Teams Extrusion Process Operator Relationship Specialty Start Date End Date Kat Nevarez MD [address] [place] [id number] PCP - General Internal Medicine 01/18/10 documented as of this encounter
--- OUTSIDE RECORDS SUMMARY | 2024-04-07 13:21 | XMS_ITS | Encounter Summary ---
Author Organization [facility] Address [address] [place] [address] Care Team Providers Care Skidway Worker Name Role Phone Kat Nevarez MD Primary Care Prov ider Reason for Visit * Reason Onset Date Comments Medication Problem 03/10/2024 Encounter Details Date Type Department Care Team ([facility] st Contact Info) Description 03/10/2024 Telephone [facility] [address] [place], [place] [phone] Keli Brown PA [address] [place] [address] Medication Problem Social History Tobacco Use Types Packs/Day Years [...] care for your loved ones. For example, school child care attendant or elderly care for an older adult? [...] documented in this encounter Progress Notes * Yoana Hook - 03/10/2024 11:12 AM EST Patient was prescribed the Dexcom G7 sensor. Patient states she does not have the Dexcom G7 meter. Patient likes using the Freestyle Kalyan 3 sensor and she does have a meter for this. Also patient was hospitalized at [facility] for low sugar. She was discharged yesterday 03/09/24. If you could look at the clinical notes from her stay. Patient has no more sensors left. Please call [phone] Patient uses [facility] on [facility] documented in this encounter Plan of Treatment Upcoming Encounters Date Type Department Care Team (Late st Contact Info) Description 05/04/2024 11:00 AM EDT Procedure visit Orthopedic Surgery - [place] [address] [phone] Haley Lara MD [address] [address] 06/13/2024 10:15 AM EDT Office Visit Adult Medicine [address] [phone] Meenakshi Garcia PA [address] [place] [address] documented as of this encounter Visit Diagnoses Not on filedocumented in this encounter Care Teams Skidway Worker Relationship Specialty Start Date End Date Kat Nevarez MD [address] [place] [address] PCP - General Internal Medicine 01/18/10 documented as of this encounter
--- OUTSIDE RECORDS SUMMARY | 2024-04-07 13:21 | XMS_ITS | Encounter Summary ---
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 For example, teacher early childhood development or elderly care for an older adult? [...] Sign Reading Time Taken Comments Blood Pressure 145/82 03/09/2024 12:24 AM EST Pulse 72 03/09/2024 12:24 AM EST Temperature 36.7 ??C (98.1 ??F) 03/09/2024 12:[address] Respiratory Rate 16 03/09/2024 12:24 AM EST Oxygen Saturation 100% 03/09/2024 12:24 AM EST Inhaled Oxygen Concentration - - Weight 70.3 kg (155 lb) 03/08/2024 9:16 PM EST Height 165.1 cm (5' 5 ) 03/08/2024 9:16 PM EST Body Mass Index 25.79 03/08/2024 9:16 PM EST documented in this encounter Functional Status [...] encounter Discharge Instructions * Discharge Instructions* DEBI Zuniga - 03/09/2024 1:22 AM EST You are seen in the ER today for low blood sugar. Please be cautious when dosing insulin and your blood sugar is low. You did tell me that you do give yourself insulin anytime your blood sugars over 100. Until you follow-up with your diabetes doctor, be very cautious when giving herself insulin if yourblood sugars below 150, and as your blood sugar dropped dangerously low. It was a pleasure caring for you today in the emergency department. Please return to the emergency department if you begin to experience any new onset chest pain, shortness of breath, uncontrolled fevers, severe abdominal pain, loss of consciousness, uncontrolled vomiting, uncontrolled diarrhea, or for any other reason you feel is necessary. Please follow-up with your PCP about this visit. Examination and treatment you received in the [...] or require a referral, a follow-up doctor customer contact sales associate for the emergency department will be provided [...] available when you were in the emergency department If you do not have a primary care provider, please contact one of the following to make arrangements to follow up. [facility] [place] [facility] * Attachments The following attachments cannot be sent through Care Everywhere. * Hypoglycemia in Diabetes: General Info (Sinhala) documented in this encounter Medications at Time [...] mouth 1 (one) time each day. 10/20/2023 pramipexole (MIRAPEX) 0.25 mg tablet TAKE 1 [...] to 10 days. 15 tablet 01/23/2024 5 furosemide (LASIX) 20 mg tablet Take 1 tablet (20 mg total) by mouth 1 (one) time each day. 30 each 11 01/19/2024 5 insulin aspart (NovoLOG FlexPen) 100 unit/mL (3 mL) injection penIndications:T ype 2 diabetes mellitus without complication, with long-term current use of insulin ([facility]) INJECT UNDER THE SKIN PER [...] Means Destination Comment s Home or Self Nursing Home documented in this encounter Progress Notes * DEBI Zuniga - 03/09/2024 1:26 AM EST ED Course as of 03/09/24 0126 Wed Mar 08, 2024 2212 Following administration of dextrose, the patient states that she is feeling significantly better. Laboratories are pending. [RB] 225 Patient's laboratories are reviewed. Patient's blood glucose will continue to be monitored. [RB] 2306 Patient signed out to me at previous providers end of shift. In short this is a 63-year-old female history of type 2 diabetes presented to the ER today with concerns for hypoglycemia. Magnesium is low at 1.6, will replenish orally. Otherwise we will continue to monitor blood sugars with hopeful disposition home. [ES] Ysabel Mar 09, 2024 0106 Reevaluated patient. She is eating a sandwich and drinking water without difficulty. Does still reports some minor abdominal pain so we will give a gram of Tylenol, but overall nontender abdomen. Will recheck sugar and plan for d/c. Patient ambulated wo difficulty too. [ES] 0125 Repeat blood sugars 128. Will discharge home. Patient given strict return precautions, instructed to be very cautious/do not give her self insulin if her blood sugar is less than 150 and she is not planning on eating immediately. She does tell me that she gives herself her insulin if her blood sugars over 100. She checks it. Previous is likely patient had a hypoglycemic events recently. [ES] ED Course User Index [ES] DEBI Zuniga [RB] DEBI Alejandro Clinical Impressions as of 03/09/24 012 Hypoglycemia Hypokalemia Discharge 1. Hypoglycemia 2. Hypokalemia Procedures Cosigned by Cristian Pedro MD at 03/09/2024 8:24 AM EST * Samreen Reich RN - 03/08/2024 8:59 PM EST PT REPORTS HOME GLUCOMETER READING 50s-60s THROUGHOUT THE DAY. REPORTS PT WAS ALTERED AND DIFFICULT TO AROUSE. PER EMS BS ON ARRIVAL 119 AFTER PREVIOUS CREW ADMINISTERED ORAL GLUCOSE. * DEBI Alejandro - 03/08/2024 8:48 PM EST Emergency Medicine Note Patient Name: Claudette Stapleton Initial Evaluation: 03/08/2024 : 1960 Patient's PCP: Kat Nevarez MD Emergency Physician: DEBI Reilly History of Present Illness Chief Complaint: Chief Complaint Patient presents with Hypoglycemia LOW BLOOD SUGARS AT HOME This is a 63-year-old female with a past medical history of COPD not currently oxygen dependent, hypertension, hyperlipidemia, insulin-dependent diabetes, DVT currently maintained on Eliquis and bipolar disorder presenting for evaluation of hypoglycemia. Patient states that her blood glucose has been as low as 53 today at 1 PM. States that she felt well upon waking this morning and throughout themorning until 1pm when she felt weak and shaky. At approximately 5:30 PM her blood sugar was 135 and she gave herself her usual dose of insulin before eating dinner. At this time the patient states that she feels shaky and nauseous with epigastric discomfort. Patient denies having any fevers, chills, cough, shortness of breath, chest pain, dysuria or urinary frequency. Patient reports having a dark stool today which she describes as diarrhea. ROS: I have performed a ROS with the pertinent positives and negatives documented in the history ofpresent illness. Previous History Past Medical History: Diagnosis Date Anemia Bipolar 1 disorder, mixed (CMS/HCC) 05/23/2014 DX:Bipolar 1 disorder, mixed ([facility]) Chronic pain COPD (chronic obstructive pulmonary disease) (CMS/HCC) Diabetes mellitus (CMS/[facility]) GERD (gastroesophageal reflux disease) Headache [...] TONSILLECTOMY TOTAL KNEE ARTHROPLASTY Right 07/2019 PROCEDURE: NV ARTHRP KNE CONDYLE&PLATU MEDIAL&LAT COMPARTMENTS TUBAL LIGATION [...] Prior to Encounter Medication Sig Dispense Refill acetaminophen (TYLENOL 8 [...] capsule 0 clonazePAM (KlonoPIN) 1 mg tablet Take 1 tablet (1 mg total) by mouth 3 (three) times a day if needed for anxiety. cyanocobalamin (VITAMIN B-12) 100 mcg tablet Take [...] on 01/11/2024) FreeStyle Kalyan 3 Sensor device CHANGE 1 DEVICE EVERY 14 DAYS furosemide (LASIX) 20 mg tablet Take 1 [...] time each day. 30 tablet 0 [DISCONTINUED] buPROPion SR (WELLBUTRIN SR) 100 mg 12 hr tablet Take 1 tablet (100 mg total) by mouth 1 (one) time each day in the morning. [DISCONTINUED] oxyCODONE-acetaminophen (PERCOCET) 5-325 mg per tablet Take 1 tablet by mouth 4 (four) times a day for 28 days. Max Daily Amount: 4 tablets 112 tablet 0 Physical Exam ED Triage Vitals Temp Pulse Resp BP -- -- -- -- SpO2 Temp src Heart Rate Source Patient Position -- -- -- -- BP Location FiO2 (%) -- -- Physical Exam General: awake, calm, cooperative, no apparent distress, vital signs reviewed Skin: warm, dry, no diaphoresis Eyes: EOMI, no photophobia, no nystagmus ENT: mucosa is dry, throat is clear Respiratory: clear to auscultation bilaterally throughout, mild tachypnea Cardiovascular: regular rate and rhythm, no murmur Gastrointestinal: soft, epigastric and suprapubic tenderness with guarding, abdomen is nondistended, normal active bowel sounds Rectal examination: brown heme negative stool; no external lesions noted on examination Musculoskeletal: extremities are warm and well-perfused Neurological: alert and oriented X3, no focal deficits Psychiatric: stable mood and affect, fluid speech, good eye contact and appropriate demeanor Results Labs Reviewed COMPREHENSIVE METABOLIC PANEL - Abnormal Result Value Sodium 141 Potassium 3.1 (*) Chloride 113 (*) CO2 23 Anion Gap 5 Glucose 218 (*) BUN 9 Creatinine 0.85 eGFR 77 BUN/Creatinine Ratio 10.6 Calcium 8.0 (*) AST (SGOT) 9 (*) ALT (SGPT) 14 Alkaline Phosphatase 46 Total Protein 4.9 (*) Albumin 2.9 (*) Total Bilirubin 0.6 CBC WITH AUTO DIFFERENTIAL - Abnormal WBC 6.8 RBC 3.50 (*) Hemoglobin 11.1 (*) Hematocrit 32.0 (*) MCV 90.7 MCH 31.4 MCHC 34.7 RDW 13.5 Platelets 135 MPV 12.1 (*) NRBC 0.0 NRBC Absolute 0.00 Neutrophils Relative 52.9 Lymphocytes Relative 37.7 Monocytes Relative 8.0 Eosinophils Relative 0.9 Basophils Relative 0.4 Immature Granulocytes Relative 0.1 Neutrophils Absolute 3.61 Lymphocytes Absolute 2.58 Monocytes Absolute 0.55 Eosinophils Absolute 0.06 Basophils Absolute 0.03 Immature Granulocytes Absolute 0.01 URINALYSIS WITH REFLEX MICROSCOPIC AND CULTURE - Abnormal Specific [place] Urine 1.007 pH, Urine 7.0 Leukocytes, Urine Small (*) Nitrite, Urine Negative Protein, Urine Negative Glucose, Urine Negative Ketones, Urine Negative Urobilinogen, Urine 0.2 Bilirubin, Urine Negative Blood, Urine Negative RBC, Urine 4 WBC, Urine 3 Squamous Epithelial, Urine 8 Non-Squamous Epithelial, Urine Rare Transitional epithelial cells. Bacteria, Urine Few (*) Hyaline Casts, Urine 0.00 POCT GLUCOSE, BLOOD - Abnormal Glucose POCT 50 (*) POCT GLUCOSE, BLOOD - Abnormal Glucose POCT 174 (*) POCT GLUCOSE, BLOOD - Abnormal Glucose POCT 113 (*) CULTURE URINE CBC AND DIFFERENTIAL Narrative: The following orders were created for panel order CBC and differential. Procedure Abnormality Status --------- ------ CBC auto differential[[id number]] Abnormal Final result Please view results for these tests on the individual orders. URINALYSIS WITH REFLEX MICROSCOPIC AND CULTURE Narrative: The following orders were created for panel order Urinalysis with reflex microscopic and culture. Procedure Abnormality Status --------- ------ Urinalysis with reflex ...[[id number]] Abnormal Final result Gerard urine culture tube[[id number]] In process Please view results for these tests on the individual orders. MAGNESIUM POCT GLUCOSE, BLOOD Abnormal Labs Reviewed COMPREHENSIVE METABOLIC PANEL - Abnormal; Notable for the following components: Result Value Potassium 3.1 (*) Chloride 113 (*) Glucose 218 (*) Calcium 8.0 (*) AST (SGOT) 9 (*) Total Protein 4.9 (*) Albumin 2.9 (*) All other components within normal limits CBC WITH AUTO DIFFERENTIAL - Abnormal; Notable for the following components: RBC 3.50 (*) Hemoglobin 11.1 (*) Hematocrit 32.0 (*) MPV 12.1 (*) All other components within normal limits URINALYSIS WITH REFLEX MICROSCOPIC AND CULTURE - Abnormal; Notable for the following components: Leukocytes, Urine Small (*) Bacteria, Urine Few (*) All other components within normal limits POCT GLUCOSE, BLOOD - Abnormal; Notable for the following components: Glucose POCT 50 (*) All other components within normal limits POCT GLUCOSE, BLOOD - Abnormal; Notable for the following components: Glucose POCT 174 (*) All other components within normal limits POCT GLUCOSE, BLOOD - Abnormal; Notable for the following components: Glucose POCT 113 (*) All other components within normal limits No orders to display I have discussed the incidental/abnormal imaging and/or lab abnormalities with the patient and haveinstructed them the need for further evaluation and workup with their primary care doctor. The laboratory results, imaging results and other diagnostic exam results were reviewed in the EMR. EKG Interpretation Critical Care Time None ? Differential Diagnosis Hypoglycemia Acute urinary tract infection Dehydration Peptic ulcer disease Medical Decision Making Medical Decision Making Patient is evaluated. Her initial blood glucose is 50 and dextrose will be administered. Laboratories and urinalysis are pending. Medications morphine injection 4 mg (has no administration in time range) sodium chloride 0.9 % bolus 500 mL (has no administration in time range) dextrose (D50W) 50% injection 25 g (25 g intravenous Given 03/08/242122) ondansetron (PF) (ZOFRAN) injection 4 mg (4 mg intravenous Given 03/08/242122) morphine 2 mg/mL injection 2 mg (2 mg intravenous Given 03/08/242153) potassium chloride (KLOR-CON M20) CR tablet 40 mEq (40 mEq oral Given 03/08/242254) ED Course as of 03/08/242256Mar 08, 20242211 Following administration of dextrose, the patient states that she is feeling significantly better. Laboratories are pending. [RB] 2252 Patient's laboratories are reviewed. Patient's blood glucose will continue to be monitored. [RB] ED Course User Index [RB] DEBI Alejandro Clinical Impressions as of 03/08/242256 Hypoglycemia Hypokalemia Procedures Procedures Diagnosis 1. Hypoglycemia 2. Hypokalemia Disposition Data Unavailable ED Prescriptions None Physician Attestation DEBI Alejandro 03/08/244 DEBI Alejandro 03/08/247 Cosigned by Arben Penn MD at 03/12/2024 8:05 AM EST documented in this encounter Plan of Treatment Upcoming Encounters Date Type Department Care Team (Late st Contact Info) Description 05/04/2024 11:00 AM EDT Procedure visit Orthopedic Surgery - [place] [address] [facility] [address] [place] [address] Haley Lara MD [address] [facility] [address] [place] [address] 06/13/2024 10:15 AM EDT Office Visit Adult Medicine [facility] [address] [place] [address] Meenakshi Garcia PA [address] [place] [address] documented as of this encounter Procedures Procedure Name Priority Date/Time Associated Diagnosis Comments POCT GLUCOSE BLOOD Routine 03/09/2024 1: 12 AM EST POCT GLUCOSE BLOOD Routine 03/09/2024 12 :08 AM EST ECG 12-LEAD STAT 03/08/2024 10:57 PM EST POCT GLUCOSE BLOOD Routine 03/08/2024 10 :54 PM EST URINALYSIS WITH REFLEX MICROSCOPIC AND CULTURE STAT 03/08/2024 10:23 PM EST GERARD URINE CULTURE TUBE STAT 03/08/2024 10:23 PM EST URINALYSIS WITH REFLEX MICROSCOPIC AND CULTURE STAT 03/08/2024 10:23 PM EST CULTURE URINE STAT 03/08/2024 10:23 PM EST POCT GLUCOSE BLOOD Routine 03/08/2024 9: 52 PM EST CBC WITH AUTO DIFFERENTIAL STAT 03/08/2024 9:38 PM EST CBC AND DIFFERENTIAL STAT 03/08/2024 9:38 PM EST MAGNESIUM Add-On 03/08/2024 9:38 PM EST COMPREHENSIVE METABOLIC PANEL STAT 03/08/2024 9:38 PM EST POCT GLUCOSE BLOOD Routine 03/08/2024 9: 13 PM EST ECG ANNOTATED 03/08/2024 documented in this encounter Results * (ABNORMAL) POCT Glucose, blood (03/09/2024 1:12 AM EST) Glucose POCT 128(H) 70 - 100 mg/dL 03/09/2024 1:12 AM EST [facility] Blood Capillary blood specimen / Unknown 03/09/2024 1:12 AM EST 03/09/2024 1:13 AM EST us Generic Provider Poct LAB POINT OF CARE TEST DOCKED DEVICE UNSOLICITED RESULTS Final Result [facility] [address] [place] [address], * POCT Glucose, blood (03/09/2024 12:08 AM EST) Glucose POCT 98 70 - 100 mg/dL 03/09/2024 12:08 AM EST [facility] Blood Capillary blood specimen / Unknown 03/09/2024 12:08 AM EST 03/09/2024 12:10 AM EST us Generic Provider Poct LAB POINT OF CARE TEST DOCKED DEVICE UNSOLICITED RESULTS Final Result Performing Organization Address [facility]/ZIP Co de Phone Number [facility] [address] [place] [address], [place] [phone] * ECG 12 lead (03/08/2024 10:57 PM EST) Ventricular Rate ECG 59 BPM GEMUSE Atrial Rate 59 BPM GEMUSE P-R Interval 136 ms GEMUSE QRS Duration 86 ms GEMUSE Q-T Interval 480 ms GEMUSE QTc 475 ms GEMUSE P Wave [place] 32 degrees GEMUSE R [place] -15 degrees GEMUSE T [place] 15 degrees GEMUSE ECG Interpretation Sinus bradycardia Otherwise normal ECG When compared with ECG of 28-JAN-2024 22:49, No significant change was found Confirmed by LIYAH PEREZ ([id number]) on 03/09/2024 4:47:51 PM GEMUSE 03/08/2024 10:5 7 PM EST 03/09/2024 4:47 PM EST Meenakshi CARRERA ECG ORDERABLES Final Resu lt Performing Organization Address [facility] Co de Phone Number FAMILIA * (ABNORMAL) POCT Glucose, blood (03/08/2024 10:54 PM EST) [facility] Glucose POCT 113(H) 70 - 100 mg/dL 03/08/2024 10:55 PM EST [facility] Blood Capillary blood specimen / Unknown 03/08/2024 10:54 PM EST 03/08/2024 10:57 PM EST Generic Provider Poct LAB POINT OF CARE TEST DOCKED DEVICE UNSOLICITED RESULTS Final Result Performing Organization Address [facility] Co de Phone Number [facility] [address] [place] [address], [place] [phone] * Culture urine (03/08/2024 10:23 PM EST) [facility] Culture, Urine No growth 03/10/2024 10:34 AM [facility] Urine Urine specimen obtained by clean catch procedure / Unknown Non-blood Collection / Unknown 03/08/2024 10:23 PM EST 03/08/2024 10:52 PM EST Meenakshi CARRERA LAB MICROBIOLOGY - GENERAL ORDERABLES Final Result Performing Organization Address [facility]/ZIP Co de Phone Number [facility] [address] [place] [address], [place] [phone] * Gerard urine culture tube (03/08/2024 10:23 PM EST) [facility] Extra Tube Hold for add-ons. 03/09/2024 12:01 AM [facility] Comment:Auto resulted. Urine Urine specimen obtained by clean catch procedure / Unknown Non-blood Collection / Unknown 03/08/2024 10:23 PM EST 03/08/2024 10:28 PM EST Meenakshi CARRERA LAB URINE ORDERABLES Final Result Performing Organization Address [facility]/ZIP Co de Phone Number [facility] [address] [place] [address], [place] [phone] * (ABNORMAL) Urinalysis with reflex microscopic and culture (03/08/2024 10:23 PM EST) [facility] Specific [place] Urine 1.007 1.003 - 1.030 LAB URINALYSIS - AUTOMATED METHOD 03/08/2024 10:52 PM [facility] pH, Urine 7.0 5.0 - 8.0 pH LAB URINALYSIS - AUTOMATED METHOD 03/08/2024 10:52 PM [facility] Leukocytes, Urine Small(A) Negative LAB URINALYSIS - AUTOMATED METHOD 03/08/2024 10:52 PM [facility] Nitrite, Urine Negative Negative LAB URINALYSIS - AUTOMATED METHOD 03/08/2024 10:52 PM [facility] Protein, Urine Negative <=Trace mg/dL LAB URINALYSIS - AUTOMATED METHOD 03/08/2024 10:52 PM [facility] Glucose, Urine Negative Negative mg/dL LAB URINALYSIS - AUTOMATED METHOD 03/08/2024 10:52 PM [facility] Ketones, Urine Negative Negative mg/dL LAB URINALYSIS - AUTOMATED METHOD 03/08/2024 10:52 PM [facility] Urobilinogen , Urine 0.2 0.2 - 1.0 mg/dL LAB URINALYSIS - AUTOMATED METHOD 03/08/2024 10:52 PM [facility] Bilirubin, Urine Negative Negative LAB URINALYSIS - AUTOMATED METHOD 03/08/2024 10:52 PM [facility] Blood, Urine Negative Negative LAB URINALYSIS - AUTOMATED METHOD 03/08/2024 10:52 PM [facility] RBC, Urine 4 0 - 4 /HPF 03/08/2024 10:52 PM [facility] WBC, Urine 3 0 - 4 /HPF 03/08/2024 10:52 PM [facility] Squamous Epithelial, Urine 8 0 - 60 /LPF 03/08/2024 10:52 PM [facility] Non-Squamous Epithelial, Urine Rare Transitional epithelial cells. /LPF 03/08/2024 10:52 PM [facility] Bacteria, Urine Few(A) Negative /HPF 03/08/2024 10:52 PM [facility] Hyaline Casts, Urine 0.00 0 - 3 /LPF 03/08/2024 10:52 PM [facility] Urine Urine specimen obtained by clean catch procedure / Unknown Non-blood Collection / Unknown 03/08/2024 10:23 PM EST 03/08/2024 10:28 PM EST us Meenakshi CARRERA LAB URINE ORDERABLES Final Result Performing Organization Address [facility]/ZIP Co de Phone Number [facility] [address] [place] [address], [place] [phone] * (ABNORMAL) POCT Glucose, blood (03/08/2024 9:52 PM EST) [facility] Glucose POCT 174(H) 70 - 100 mg/dL 03/08/2024 9:53 PM EST [facility] Blood Capillary blood specimen / Unknown 03/08/2024 9:52 PM EST 03/08/2024 9:54 PM EST Generic Provider Poct LAB POINT OF CARE TEST DOCKED DEVICE UNSOLICITED RESULTS Final Result Performing Organization Address [facility] Co de Phone Number [facility] [address] [place] [address], [place] [phone] * (ABNORMAL) Magnesium (03/08/2024 9:38 PM EST) [facility] Magnesium 1.6(L) 1.9 - 2.6 mg/dL LAB CHEMISTRY METHOD 03/08/2024 10:58 PM EST [facility] Blood Venous blood specimen / Unknown Venipuncture / Unknown 03/08/2024 9:38 PM EST 03/08/2024 9:57 PM EST us Meenakshi CARRERA LAB BLOOD ORDERABLES Final Result Performing Organization Address City/[facility]/ZIP Co de Phone Number [facility] [address] [place] [address], [place] [phone] * (ABNORMAL) CBC auto differential (03/08/2024 9:38 PM EST) [facility] WBC 6.8 4.8 - 10.8 K/mcL LAB HEMETOLOGY METHOD 03/08/2024 10:02 PM [facility] RBC 3.50(L) 3.80 - 4.80 M/mcL LAB HEMETOLOGY METHOD 03/08/2024 10:02 PM [facility] Hemoglobin 11.1(L) 11.5 - 16.0 g/dL LAB HEMETOLOGY METHOD 03/08/2024 10:02 PM [facility] Hematocrit 32.0(L) 35.0 - 47.0 % LAB HEMETOLOGY METHOD 03/08/2024 10:02 PM [facility] MCV 90.7 79.0 - 98.0 FL LAB HEMETOLOGY METHOD 03/08/2024 10:02 PM [facility] MCH 31.4 27.0 - 32.0 pcg LAB HEMETOLOGY METHOD 03/08/2024 10:02 PM [facility] MCHC 34.7 32.0 - 37.0 g/dL LAB HEMETOLOGY METHOD 03/08/2024 10:02 PM [facility] RDW 13.5 11.0 - 15.0 % LAB HEMETOLOGY METHOD 03/08/2024 10:02 PM [facility] Platelets 135 130 - 400 K/mcL LAB HEMETOLOGY METHOD 03/08/2024 10:02 PM [facility] MPV 12.1(H) 7.0 - 11.0 FL LAB HEMETOLOGY METHOD 03/08/2024 10:02 PM [facility] NRBC 0.0 <1.0 % LAB HEMETOLOGY METHOD 03/08/2024 10:02 PM [facility] NRBC Absolute 0.00 <0.10 K/mcL LAB HEMETOLOGY METHOD 03/08/2024 10:02 PM [facility] Neutrophils Relative 52.9 % LAB HEMETOLOGY METHOD 03/08/2024 10:02 PM [facility] Lymphocytes Relative 37.7 % LAB HEMETOLOGY METHOD 03/08/2024 10:02 PM [facility] Monocytes Relative 8.0 % LAB HEMETOLOGY METHOD 03/08/2024 10:02 PM [facility] Eosinophils Relative 0.9 % LAB HEMETOLOGY METHOD 03/08/2024 10:02 PM [facility] Basophils Relative 0.4 % LAB HEMETOLOGY METHOD 03/08/2024 10:02 PM [facility] Immature Granulocytes Relative 0.1 % LAB HEMETOLOGY METHOD 03/08/2024 10:02 PM [facility] Neutrophils Absolute 3.61 1.50 - 7.00 K/mcL LAB HEMETOLOGY METHOD 03/08/2024 10:02 PM [facility] Lymphocytes Absolute 2.58 1.00 - 5.00 K/mcL LAB HEMETOLOGY METHOD 03/08/2024 10:02 PM [facility] Monocytes Absolute 0.55 0.20 - 1.00 K/mcL LAB HEMETOLOGY METHOD 03/08/2024 10:02 PM [facility] Eosinophils Absolute 0.06 0.00 - 0.50 K/mcL LAB HEMETOLOGY METHOD 03/08/2024 10:02 PM [facility] Basophils Absolute 0.03 0.00 - 0.20 K/mcL LAB HEMETOLOGY METHOD 03/08/2024 10:02 PM [facility] Immature Granulocytes Absolute 0.01 0.00 - 0.03 K/mcL LAB HEMETOLOGY METHOD 03/08/2024 10:02 PM [facility] Blood Venous blood specimen / Unknown Venipuncture / Unknown 03/08/2024 9:38 PM EST 03/08/2024 9:57 PM EST Arben Penn MD LAB BLOOD ORDERABLES Final Res ult [facility] [address] [place] [address], * (ABNORMAL) Comprehensive metabolic panel (03/08/2024 9:38 PM EST) Sodium 141 133 - 145 mmol/L LAB CHEMISTRY METHOD 03/08/2024 10:27 PM [facility] Potassium 3.1(L) 3.5 - 5.5 mmol/L LAB CHEMISTRY METHOD 03/08/2024 10:27 PM [facility] Chloride 113(H) 96 - 110 mmol/L LAB CHEMISTRY METHOD 03/08/2024 10:27 PM [facility] CO2 23 21 - 32 mmol/L LAB CHEMISTRY METHOD 03/08/2024 10:27 PM [facility] Anion Gap 5 3 - 11 LAB CHEMISTRY METHOD 03/08/2024 10:27 PM [facility] Glucose 218(H) 70 - 100 mg/dL LAB CHEMISTRY METHOD 03/08/2024 10:27 PM [facility] BUN 9 5 - 25 mg/dL LAB CHEMISTRY METHOD 03/08/2024 10:27 PM [facility] Creatinine 0.85 0.50 - 1.10 mg/dL LAB CHEMISTRY METHOD 03/08/2024 10:27 PM [facility] eGFR 77 >=60 mL/min/1. 73m2 LAB CHEMISTRY METHOD 03/08/2024 10:27 PM [facility] Comment:Calculation based on the??Chronic Kidney Disease Epidemiology Collaboration (CKD-EPI) equation refit??without adjustment for race. BUN/Creatinine Ratio 10.6 LAB CHEMISTRY METHOD 03/08/2024 10:27 PM [facility] Calcium 8.0(L) 8.5 - 10.5 mg/dL LAB CHEMISTRY METHOD 03/08/2024 10:27 PM [facility] AST (SGOT) 9(L) 10 - 42 unit/L LAB CHEMISTRY METHOD 03/08/2024 10:27 PM [facility] ALT (SGPT) 14 10 - 60 unit/L LAB CHEMISTRY METHOD 03/08/2024 10:27 PM [facility] Alkaline Phosphatase 46 42 - 121 unit/L LAB CHEMISTRY METHOD 03/08/2024 10:27 PM [facility] Total Protein 4.9(L) 6.0 - 8.0 g/dL LAB CHEMISTRY METHOD 03/08/2024 10:27 PM [facility] Albumin 2.9(L) 3.2 - 5.0 g/dL LAB CHEMISTRY METHOD 03/08/2024 10:27 PM [facility] Total Bilirubin 0.6 0.0 - 1.4 mg/dL LAB CHEMISTRY METHOD 03/08/2024 10:27 PM [facility] Blood Venous blood specimen / Unknown Venipuncture / Unknown 03/08/2024 9:38 PM EST 03/08/2024 9:57 PM EST Arben Penn MD LAB BLOOD ORDERABLES Final Res ult Performing Organization Address [facility] Co de Phone Number [facility] [address] [place] [address], * (ABNORMAL) POCT Glucose, blood (03/08/2024 9:13 PM EST) Glucose POCT 50(L) 70 - 100 mg/dL 03/08/2024 9:15 PM EST [facility] Blood Capillary blood specimen / Unknown 03/08/2024 9:13 PM EST 03/08/2024 9:16 PM EST us Generic Provider Poct LAB POINT OF CARE TEST DOCKED DEVICE UNSOLICITED RESULTS Final Result Performing Organization Address [facility]/State/ZIP Co de Phone Number [facility] ([facility] [[email or web address] [address] [place] [address], * ECG-Annotated (03/08/2024) us Provider Onbase MD ECG ORDERABLES Final Result documented in this encounter Visit Diagnoses Diagnosis Hypoglycemia- Primary Hypoglycemia, unspecified Hypokalemia Hypopotassemia documented in this encounter Administered Medications Inactive Administered Medications - up to 3 most recent administrations Medication Order MAR Action Action Date Dose Rate Site acetaminophen (TYLENOL) tablet 1,000 mg 1,000 mg, oral, Once, On Wed03/09/24 at 0030, For 1 dose Given 03/09/2024 12:31 AM EST 1,000 mg dextrose (D50W) 50% injection 25 g 25 g, intravenous, Once, On Wed03/08/24 at 2115, For 1 dose Given 03/08/2024 9:23 PM EST 25 g magnesium oxide (MAG-OX) tablet 400 mg 400 mg, oral, Daily, First dose on Wed03/09/24 at 0900 morphine 2 mg/mL injection 2 mg 2 mg, intravenous, Once, On Wed03/08/24 at 2133, For 1 dose Given 03/08/2024 9:54 PM EST 2 mg morphine injection 4 mg 4 mg, intravenous, Once, On Wed03/08/24 at 2254, For 1 dose Given 03/08/2024 10:59 PM EST 4 mg ondansetron (PF) (ZOFRAN) injection 4 mg 4 mg, intravenous, Once, On Wed03/08/24 at 2119, For 1 dose Given 03/08/2024 9:23 PM EST 4 mg potassium chloride (KLOR-CON M20) CR tablet 40 mEq 40 mEq, oral, Once, On Wed03/08/24 at 2245, For 1 dose, Tablet may be swallowed whole (do not crush/chew/suck on) OR broken in half and each half swallowed separately OR dissolved (whole tablet) in ~4 ounces of water (allow ~2 minutes to dissolve, stir well and administer immediately). Given 03/08/2024 10:55 PM EST 40 mEq sodium chloride 0.9 % bolus 500 mL 500 mL, intravenous, at 500 mL/hr, Administer over 1 Hours, Once, On Wed03/08/24 at 2254, For 1 dose New Bag 03/08/2024 10:58 PM EST 500 mL 500 mL/hr documented in this encounter Active and Recently Administered Medications Times are shown in EST. Scheduled Medication Order 03/07/2024 03/08/2024 03/09/2024 acetaminophen (TYLENOL) tablet 1,000 mg (COMPLETED) 1,000 mg, oral, Once, On Ysabel 03/09/24 at 0030, For 1 dose 30 (Given - Provid er: Deandra Mantilla RN) dextrose (D50W) 50% injection 25 g (COMPLETED) 25 g, intravenous, Once, On Wed03/08/24 at 2114, For 1 dose 2122 (Given - Provider: Samreen Reich RN) magnesium oxide (MAG-OX) tablet 400 mg 400 mg, oral, Daily, First dose on Ysabel 03/09/24 at 0900 morphine 2 mg/mL injection 2 mg (COMPLETED) 2 mg, intravenous, Once, On Wed03/08/24 at 2133, For 1 dose 2153 (Given - Provider: Samreen Reich RN) morphine injection 4 mg (COMPLETED) 4 mg, intravenous, Once, On Wed03/08/24 at 225, For 1 dose 2258 (Given - Provider: Samreen Reich RN) ondansetron (PF) (ZOFRAN) injection 4 mg (COMPLETED) 4 mg, intravenous, Once, On Wed03/08/24 at 2118, For 1 dose 2122 (Given - Provider: Samreen Reich RN) potassium chloride (KLOR-CON M20) CR tablet 40 mEq (COMPLETED) 40 mEq, oral, Once, On Wed03/08/24 at 2245, For 1 dose, Tablet may be swallowed whole (do not crush/chew/suck on) OR broken in half and each half swallowed separately OR dissolved (whole tablet) in ~4 ounces of water (allow ~2 minutes to dissolve, stir well and administer immediately). 2254 (Given - Provider: Samreen Reich RN) sodium chloride 0.9 % bolus 500 mL (COMPLETED) 500 mL, intravenous, at 500 mL/hr, Administer over 1 Hours, Once, On Wed03/08/24 at 2254, For 1 dose 2258 (New Bag - Provider: Samreen Reich, RN) 0129 (Stopped - Provider: Deandra Mantilla RN) documented in this encounter Orders Medications Ordered That Sang ht Not Have Been Administered Count Last Ordered Date First Ordered Date magnesium oxide (MAG-OX) tablet 400 mg 1 documented in this encounter Care Teams Railroad Carman Relationship Specialty Start Date End Date Kat Nevarez MD [address] [place] [id number] PCP - General Internal Medicine 01/18/10 documented as of this encounter
--- OUTSIDE RECORDS SUMMARY | 2024-04-07 13:21 | XMS_ITS | Encounter Summary ---
Author Organization [facility] Address [address] [place] [address] Care Team Providers Care Cable Strander Name Role Phone Kat Nevarez MD Primary Care Prov ider Reason for Visit * Reason Onset Date Comments Faxed Order [id number] 03/20/2024 Encounter Details Date Type Department Care Team ([facility] st Contact Info) Description 03/20/2024 Telephone Adult Medicine - [place] [address] [place] [phone] Kat Nevarez MD [address] [place] [address] Faxed Order [id number] Social History Tobacco Use Types Packs/Day Years [...] loved ones. For example, early childhood education specialist or elderly care for an older adult? [...] Progress Notes * Karen Ac MA - 03/21/2024 12:[address] Govea to sign fax and file. * Marika Landa - 03/20/2024 3:11 PM EST PLEASE CLOSE MESSAGE WHEN ORDER HAS BEEN FAXED Faxed order [id number] received from [facility], requesting signature from provider. Please sign and fax back to [phone]. Order in orange folder documented in this encounter Plan of Treatment Upcoming Encounters Date Type Department Care Team (Late st Contact Info) Description 05/04/2024 11:00 AM EDT Procedure visit Orthopedic Surgery - [place] [address] [phone] Haley Lara MD [address] [address] 06/13/2024 10:15 AM EDT Office Visit Adult Medicine [facility] [address] [place] [phone] Meenakshi Garcia PA [address] [place] [address] documented as of this encounter Visit Diagnoses Not on filedocumented in this encounter Care Teams Cable Strander Relationship Specialty Start Date End Date Kat Nevaerz MD [address] [place] [address] PCP - General Internal Medicine 01/18/10 documented as of this encounter
--- OUTSIDE RECORDS SUMMARY | 2024-04-07 13:21 | XMS_ITS | Patient Health Record ---
Author Organization [facility] Address [address] [place] [address] Care Team Providers Care Upper Shaper Name Role Phone VANDANA DIETRICH Primary Care Provide r Lobo Alatorre Jr Unavailable RESULTS Component Value Reference Range Notes Hold Lav - Possible Hematolo gy Reviewed date:09/09/2023 08:02:06 AM Interpretation: Performing Lab:[facility], [address] [place] [phone] Notes/Report: Hold Lav - Possible Hematology SEE NOTE Specimen will be held untested for 8 hours. Call Hematology if testing is desired. Prothrombin Time INR Reviewed date:09/09/2023 08:01:42 AM Interpretation: Performing Lab:[facility], [address] [place] [phone] Notes/Report: Prothrombin Time 14.3 11.1-13.3 SEC INTERNATIONAL NORM RATIO 1.2 0.9-1.1 INTERNATIONAL NORMALIZED RATIO (INR) REFERENCE RANGES Reference Range For patients not on anticoagulant therapy: 0.9 - 1.1 INR ranges for oral anticoagulant therapy: For prevention and treatment of venous thrombosis and pulmonary embolism: 2.0 - 3.0 For acute myocardial infarction with aspirin therapy: 2.0 - 3.0 For acute myocardial infarction without aspirin therapy: 3.0 - 4.0 For patients with mechanical prosthetic heart valves: 2.5 - 3.5 Pathology Reviewed date:09/16/2023 07:57:29 AM Interpretation: Performing Lab:[facility], [address] [place] [phone] Notes/Report: Hold Green Gel Reviewed date:09/09/2023 08:01:59 AM Interpretation: Performing Lab:[facility], [address] [place] [phone] Notes/Report: Hold Green Gel See Note Specimen held untested for 24 hours; Call to request Chemistry testing. 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 Jejunal ulcer (24426911) Encounters Encounter Location Date Provider Diagnosis [facility] [place] [address], [place] [phone] 09/09/2023 Lobo Titus Jr [facility] [address] [place] [address] 09/16/2023 Lobo Titus Jr PLAN OF TREATMENT No Information Insurance Providers Payer Name Payer Address Payer Phone Subscriber Number Group Number Insured Name Patient Relationship to Insured Coverage Start Date Coverage End Date [facility] [address] Attn Claims [place] [id number] MARGOT ENGL[place] Self - patient is the insured
--- OUTSIDE RECORDS SUMMARY | 2024-04-07 13:22 | XMS_ITS | Clinical Summary ---
Author Organization [facility] Address [address] [place] [address] Phone Care Team Providers Care Senior Windows Engineer Name Role Phone Kat Nevarez MD Primary Care Prov ider Allergies Active Allergy Reactions Criticality Noted Date Comments Leander Inhibitors 02/26/2012 Cough Cephalexin 01/28/2024 Cephalexin Monohydrate Swelling 06/03/2010 Glipizide 02/21/2010 Other Reaction(s): OTHER, Rash/Dermatitis Rash with burning sensation Glucagon Unknown 07/21/2022 Ibuprofen Rash 03/11/2024 Metformin Itching 03/27/2013 Ropinirole Nausea And Vomiting 08/26/2010 Generic medication only not the brand name (Requip) Medications docusate sodium (COLACE) 100 mg capsule Take 1 capsule (100 mg total) by mouth 2 (two) times a day. Active cyanocobalamin (VITAMIN B-12) 100 mcg tablet Take 0.5 tablets (50 mcg total) by mouth 1 (one) time each day. Active topiramate (TOPAMAX) 100 mg tablet Take 1 tablet (100 mg total) by mouth 2 (two) times a day. 05/14/19 24 Active budesonide-for moteroL (Symbicort) 160-4.5 mcg/actuation inhaler Inhale 2 puffs by mouth 2 (two) times a day. 03/29/19 24 Active albuterol HFA (PROAIR HFA ; PROVENTIL HFA ; VENTOLIN HFA) 90 mcg/actuation inhaler Inhale 2 Puffs into the lungs every 6 hours as needed for Cough, Wheezing or Shortness of Breath. 03/29/19 24 Active FREESTYLE LANCETS MISC To test sugars bid 10/02/19 22 Active omeprazole (PriLOSEC) [address] capsule Take 1 capsule (20 mg total) by mouth 1 (one) time each day. 10/20/19 24 025 Active pramipexole (MIRAPEX) 0.25 mg tablet TAKE 1 TABLET BY MOUTH DAILY 90 tablet 1 01/03/20 24 Active acetaminophen (TYLENOL 8 HOUR) 650 mg 8 hr tablet Take 1 tablet (650 mg total) by mouth every 8 (eight) hours if needed for headaches. for pain 30 tablet 2 01/03/20 24 Active melatonin 10 mg tablet Take 1 tablet (10 mg total) by mouth at bedtime. melatonin 10 mg-lemon balm leaf extract 1 mg tablet 90 tablet 1 01/03/20 24 025 Active apixaban (Eliquis) 5 mg tablet Take 1 tablet (5 mg total) by mouth 2 (two) times a day. 180 each 1 01/03/20 24 025 Active senna (SENOKOT) 8.6 mg tablet Take 1 tablet (8.6 mg total) by mouth 1 (one) time each day. 90 each 1 01/03/20 24 025 Active furosemide (LASIX) 40 mg tablet Take 0.5 tablets (20 mg total) by mouth 1 (one) time each day. 45 each 1 01/11/20 24 025 Active gabapentin (NEURONTIN) 800 mg tablet Take 1 tablet (800 mg total) by mouth 2 (two) times a day. 180 each 01/11/20 24 025 Active cholecalcifero l (VITAMIN D-3) 50 mcg (2,000 unit) capsule TAKE 1 CAPSULE BY MOUTH DAILY 90 capsule 02/16/19 25 Active FreeStyle Kalyan 3 Sensor deviceIndicati ons:Type 2 diabetes mellitus with diabetic neuropathy, with long-term current use of insulin ([facility]) Box = Kit = EACHANGE 1 DEVICE EVERY 14 DAYS 6 each 1 03/09/19 25 Active clonazePAM (KlonoPIN) 1 mg tablet TAKE 1 TABLET BY MOUTH THREE TIMES DAILY NEEDED FOR ANXIETY 84 tablet 2 03/10/19 25 Active glucose 4 gram chewable tablet Chew 4 tablets (16 g total) if needed for low blood sugar. 50 tablet 03/12/19 25 026 Active amLODIPine (NORVASC) 5 mg tablet Take 1 tablet (5 mg total) by mouth 1 (one) time each day. 90 each 1 03/14/19 25 025 Active atorvastatin (LIPITOR) 40 mg tablet Take 1 tablet (40 mg total) by mouth 1 (one) time each day. 90 each 1 03/14/19 25 025 Active cyclobenzaprin e (FLEXERIL) 10 mg tablet Take 1 tablet (10 mg total) by mouth 3 (three) times a day if needed for muscle spasms. 15 tablet 1 03/14/19 25 025 Active lurasidone (LATUDA) 120 mg tablet Take 1 tablet (120 mg total) by mouth 1 (one) time each day. 90 each 1 03/14/19 25 025 Active Trintellix 20 mg tablet TAKE 1 TABLET(20 MG) BY MOUTH 1 TIME EACH DAY 30 tablet 03/17/19 25 Active dextrose (Dex4 Glucose) 15 gram/33 gram gel in packet Use as directed for Hypoglycemia. 33 g 5 03/21/19 25 Active buPROPion SR (WELLBUTRIN SR) 100 mg 12 hr tablet TAKE 1 TABLET BY MOUTH EVERY MORNING 90 tablet 03/29/19 25 Active traZODone (DESYREL) 100 mg tablet TAKE 3 TABLET BY MOUTH AT BEDTIME 90 tablet 03/29/19 25 Active atorvastatin (LIPITOR) 40 mg tablet Take 1 tablet (40 mg total) by mouth 1 (one) time each day. 05/04/19 24 025 Discontinued(Re order) clonazePAM (KlonoPIN) 1 mg tablet Take 1 tablet (1 mg total) by mouth 3 (three) times a day if needed for anxiety. 07/21/19 24 025 Discontinued amLODIPine (NORVASC) 5 mg tablet Take 1 tablet (5 mg total) by mouth 1 (one) time each day. 025 Discontinued(Re order) FreeStyle Kalyan 3 Sensor device CHANGE 1 DEVICE EVERY 14 DAYS 01/04/20 24 025 Discontinued traZODone (DESYREL) 100 mg tablet Take 2 tablets (200 mg total) by mouth at bedtime. 01/11/20 24 025 Discontinued lurasidone (LATUDA) 120 mg tablet TAKE 1 TABLET BY MOUTH DAILY 30 tablet 2 01/19/20 24 025 Discontinued(Re order) furosemide (LASIX) 20 mg tablet Take 1 tablet (20 mg total) by mouth 1 (one) time each day. 30 each 11 01/19/20 24 025 Discontinued(Th erapy completed) cyclobenzaprin e (FLEXERIL) 10 mg tablet Take 1 tablet (10 mg total) by mouth 3 (three) times a day if needed for muscle spasms for up to 10 days. 15 tablet 01/23/20 24 025 Discontinued(Re order) vortioxetine (TRINTELLIX) 20 mg tablet Take 1 tablet (20 mg total) by mouth 1 (one) time each day. 30 tablet 02/04/20 24 025 Discontinued insulin aspart (NovoLOG FlexPen) 100 unit/mL (3 mL) injection penIndications :Type 2 diabetes mellitus without complication, with long-term current use of insulin ([facility]) INJECT UNDER THE SKIN PER SLIDING SCALE BEFORE BREAKFAST AND DINNER UP TO 30 UNITS MAX DOSE PER MEAL 30 mL 5 02/09/19 25 025 Discontinued(Di scontinued by another clinician) buPROPion SR (WELLBUTRIN SR) 100 mg 12 hr tablet TAKE 1 TABLET BY MOUTH EVERY MORNING 90 tablet 03/03/19 25 025 Discontinued oxyCODONE-acet aminophen (PERCOCET) 5-325 mg per tablet Take 1 tablet by mouth 4 (four) times a day for 28 days. Max Daily Amount: 4 tablets 112 tablet 03/08/19 25 025 Dexcom G7 Sensor device USE DIRECTED CHANGE SENSOR EVERY 10 DAYS 3 each 03/09/19 25 025 Discontinued(Fo rmulary change) Active Problems Problem Noted Date Diagnosed Date Alcohol abuse 01/11/2024 Diabetes mellitus, type 2 01/11/2024 Mood disorder 01/11/2024 RYAN (obstructive sleep apnea) 01/11/2024 Bradycardia 12/27/2023 Class 2 obesity due to exces s calories without serious comorbidity with body mass index (BMI) of 35.0 to 35.9 in adult 11/18/2023 Peripheral autonomic neuropathy due to DM 2022 Single subsegmental pulmonar y embolism without acute cor pulmonale 08/10/2022 Overview (11/18/2023): Hospitalized 07/22/2022 Chronic bilateral low back pain with bilateral s ciatica 07/21/2022 Overview (11/18/2023): Last Assessment & Plan: I reviewed this in detail with Ms. Quintero using a spine model to describe the findings on MRI. There is disc desiccation particular the lower 3 levels which can cause chronic pain and a feeling of poor support in the back especially with standing, walking and activity. I disagree with the report regarding the degree of central stenosis. There is an element of epidural lipomatosis but this results in mild central stenosis at L3-4 which is the worst level. There is no significant central or foraminal stenosis and no role for surgery. The patient states she is unable to go out to physical therapy consistently but recalls that she had great response to use of a TENS unit when she was in PT years ago. She has asked us to help her acquire a home TENS unit and we will submit an application for her. We are not prescribing any narcotics as we do this strictly in the early postoperative period. Pain of left hip 07/21/2022 Overview (11/18/2023): Last Assessment & Plan: Ms. Quintero demonstrated some giveaway weakness of testing in the proximal left leg which she states has been worse since her fall 3 weeks ago. There are positive findings on left hip mechanical testing in all directions and I will send her for x-rays today to look for an acute injury. Constipation 04/14/2021 Medial meniscus tear 02/02/2019 Overview (11/18/2023): Right. Pending ortho eval, was seeing [facility]. HTN (hypertension) 01/13/2019 Pannus, abdominal 04/04/2018 Moderate persistent asthma without complication 10/09/2016 Restless leg syndrome 01/09/2015 Bipolar 1 disorder, mixed 05/23/2014 Hypercholesteremia 03/27/2013 Sleep apnea 09/22/2010 Chest pain 06/11/2008 Osteoarthritis 03/01/2008 Overview (11/18/2023): Spine, shoulder, knee History of alcohol abuse 03/16/2006 Overview (11/18/2023): H/o cocaine use Resolved Problems Problem Noted Date Diagnosed Date Resolved Date Dizziness 12/29/2023 12/29/2023 Encounters Date Type Department Care Team Description 04/06/2024 Telephone Adult Medicine [facility] [address] [place] [phone] Kat Maki MD Fitting for DME 04/05/2024 11:30 AM EST Office Visit Orthopedic Surgery - [address] [place] [address] Amarilis Shelton, PA Pain in joint of right shoulder (Primary Dx); Hand arthritis; Adhesive capsulitis of both shoulders; Neuropathy 03/29/2024 Telephone Adult [facility] [address] [place] [phone] Kat Maki MD Faxed Order; Faxed Order [id number] 03/24/2024 Billing Patient Not Present Adult [facility] [address] [place] [phone] Kat Maki MD Perforation of intestine (nontraumatic) ([facility]) (Primary Dx); Type 2 diabetes mellitus with diabetic polyneuropathy, unspecified whether exterminator helper insulin use ([facility]); Essential (primary) hypertension; Uncomplicated asthma, unspecified asthma severity, unspecified whether persistent; Bipolar affective disorder, remission status unspecified ([facility]); Pure hypercholesterolemia 03/23/2024 Telephone Adult [facility] [address] [place] [phone] Kat Maki MD Forms/questionnaires ([facility] 03/22/2024-05/20/2024) 03/20/2024 Telephone Adult [address] [phone] Kat Maki MD Faxed Order [id number] 03/20/2024 Telephone Adult [address] [phone] Kat Maki MD Faxed Order [id number] 03/16/2024 10:00 AM EST Office Visit Endocrinology [address] [phone] Keli Brown PA Hypoglycemia (Primary Dx) 03/14/2024 11:15 AM EST Office Visit Adult [address] [phone] Kat Maki MD Type 2 diabetes mellitus with other specified complication, with long-term current use of insulin (CMS/HCC) (Primary Dx); Chronic bilateral low back pain with bilateral sciatica; Osteoarthritis, unspecified osteoarthritis type, unspecified site; Bipolar 1 disorder, mixed (CMS/HCC) 03/14/2024 Telephone Adult [address] [phone] Kat Maki MD Office Notes; [facility] Call 03/11/2024 6:45 PM EST - 03/12/2024 4:56 AM [facility] [address] [place] [phone] Yvon Dupont MD Hypoglycemia (Primary Dx); Acute abdominal pain; Type 2 diabetes mellitus without complication, with long-term current use of insulin (CMS/HCC) Discharge Disposition: Home or Self Care 03/10/[address] [phone] Keli Brown PA Medication Problem 03/08/2024 8:54 PM EST - 03/09/2024 1:29 AM [facility] [address] [place] [phone] Hypoglycemia (Primary Dx); Hypokalemia Discharge Disposition: Home or Self Care 03/08/2024 Billing Patient Not Present Adult Medicine - [place] [address] [place] [phone] Kat Maki MD Perforation of intestine (nontraumatic) ([facility]) (Primary Dx); Type 2 diabetes mellitus with diabetic polyneuropathy, unspecified whether halfway insulin use ([facility]); Essential (primary) hypertension; Uncomplicated asthma, unspecified asthma severity, unspecified whether persistent; Bipolar affective disorder, remission status unspecified ([facility]); Pure hypercholesterolemia 03/07/2024 2:42 PM EST - 03/07/2024 11:59 PM EST Hospital Encounter Neurodiagnostic [address] [place] [phone] Paresthesia of skin Discharge Disposition: Home or Self Care 03/07/2024 Telephone Adult Medicine [address] [phone] Kat Maki MD Forms/questionnaires ([facility] 01/22/2024-03/21/2024) 03/07/2024 Telephone Adult Medicine [address] [phone] Kat Maki MD Faxed Order [id number] 02/22/2024 10:30 AM EST - 02/22/2024 11:59 PM EST Hospital Encounter Radiology Department - [address] [phone] Thyroid nodule Discharge Disposition: Home or Self Care 02/22/2024 Telephone Adult Medicine [facility] [address] [place] [address] Kat Maki MD Faxed Order [id number] 02/17/2024 Telephone Adult Medicine [facility] [address] [place] [address] Kat Maki MD Faxed Order [id number] 02/14/2024 Telephone Endocrinology - [place] [address] [place] [address] Keli Brown PA 02/10/2024 Telephone Adult Medicine - [address] [phone] Kat Maki MD Faxed Order [id number] 01/28/2024 8:30 PM EST - 01/29/2024 4:02 AM EST Emergency Emergency [address] [place] [phone] Kathie Kong MD Chest pain, unspecified type (Primary Dx) Discharge Disposition: Home or Self Care 01/28/2024 Telephone Adult Medicine - [address] [phone] Kat Maki MD Faxed Order [id number] 01/25/2024 Telephone Adult Medicine - [address] [phone] Kat Maki MD Faxed Order [id number] 01/25/2024 Telephone Adult Medicine - [address] [phone] Kat Maki MD Faxed Order [id number] 01/23/2024 12:49 AM EST - 01/23/2024 6:25 AM EST [facility] [address] [place] [phone] Kathie Kong MD Chest wall pain (Primary Dx); Hypomagnesemia Discharge Disposition: Home or Self Care 01/12/2024 Telephone Adult Medicine [address] [phone] Kat Maki MD Faxed Order [id number] 01/11/2024 10:30 AM EST Office Visit Adult Medicine [address] [phone] Kat Maki MD Bipolar 1 disorder, mixed ([facility]) (Primary Dx); Arthritis; Weakness 01/11/2024 Billing Patient Not Present Adult Medicine [address] [phone] Angela Felix [place] Type 2 diabetes mellitus with diabetic polyneuropathy, unspecified whether halfway insulin use ([facility]) (Primary Dx); Essential (primary) hypertension; Perforation of intestine (nontraumatic) ([facility]); Chronic obstructive pulmonary disease, unspecified COPD type ([facility]); Bipolar affective disorder, remission status unspecified ([facility]); Pure hypercholesterolemia, unspecified 01/11/2024 Telephone Adult Medicine [address] [phone] Kat Maki MD med list faxed 01/10/2024 Telephone Adult Medicine [address] [phone] Kat Maki MD [facility] 11/23/2023-01/21/2024 Resumption of Care Following Hosp 01/07/2024 Telephone Adult [address] [phone] Kat Maki MD Faxed Order [id number] from Last 3 Months Immunizations Name Administration Dates Next Due H1N1 Inj Preservative Free 02/11/2009 Influenza Quadravalent, MDCK , 0.5ml, preservative free (Flucelvax) 6mo and older 12/01/2022,01/06/2022,12/05/2018 Influenza trivalent, with pr eservative (Fluzone; Afluria) 6mo and older 10/27/2019,11/03/2016,12/13/2013,10/20,10/23/2011,10/31/2010,11/25/2009 ,01/29/2009,11/28/2007 Pneumococcal conjugate 13 va lent (Prevnar 13, PCV13) 2mo and older 03/22/2019 Pneumococcal polysaccharide 23 valent (Pneumovax 23) 2yo and older 12/19/2013,11/28/2007 Td Tetanus diptheria (Tdvax) 7yo and older 12/09/2007 Surgical History Surgery Date Site/Laterality Comments TONSILLECTOMY PROCEDURE: HISTORICAL TONSILLECTOMY OTHER SURGICAL HISTORY 07/15 PROCEDURE: HISTORICAL SUPRACERVICAL HYSTERECTOMY W/O BSO; COMMENT: ovarian concervation, supracervical abdominal hysterectomy, for 20 weeks size fibroid uterus TUBAL LIGATION PROCEDURE: HISTORICAL TUBAL LIGATION TOTAL KNEE ARTHROPLASTY 07/2019 Right PROCEDURE: WI ARTHRP KNE CONDYLE&PLATU MEDIAL&LAT COMPARTMENTS Medical History Medical History Date Comments Bipolar 1 disorder, mixed ([facility]) 05/23/2014 DX:Bipolar 1 disorder, mixed ([facility]) Osteoarthritis DX:Osteoarthriti s; COMMENT: spine, shoulder, knee History of alcohol abuse 03/16/2006 DX:Hist ory of alcohol abuse Hypercholesteremia 03/27/2013 DX:Hyperchole steremia Moderate persistent asthma w ithout complication 10/09/2016 DX:Moderate persistent asthm a without complication Sleep apnea 09/22/2010 DX:Sleep apnea Restless leg syndrome 01/09/2015 DX:Restles s leg syndrome S/P laparoscopic sleeve gastrectomy 08/22/2015 DX:S/P laparoscopic sleeve gastrectomy Intertrigo 04/04/2018 DX:Intertrigo Diabetes mellitus ([facility]) Chronic pain Hypertension Anemia History of adverse effect of venous thromboembolism (VTE) prophylaxis Headache COPD (chronic obstructive pu lmonary disease) ([facility]) GERD (gastroesophageal reflux disease) Family History Medical History Relation Name Comments Asthma Daughter Throat cancer Father Cataract, Glau coma Diabetes Mother CHF Heart failure Mother Heart failure Sister Relation Name Status Comments Daughter Father Mother Alive Sister Social History Tobacco Use Types Packs/Day Years [...] for your loved ones. For example, child support investigator or elderly care for an older adult? [...] Orientation Straight 12/28/2023 6: 06 PM EST Obstetrics History Last Filed Vital Signs Vital Sign Reading Time Taken Comments Blood Pressure 118/64 03/16/2024 10:22 AM EST C Pulse 64 03/16/2024 10:22 AM EST Temperature 36.2 ??C (97.2 ??F) 03/16/2024 1 0:22 AM EST Respiratory Rate 16 03/12/2024 1:23 AM EST Oxygen Saturation 96% 03/16/2024 10: 22 AM EST Inhaled Oxygen Concentration - - Weight 69.8 kg (153 lb 12.8 oz) 025 10:22 AM EST Height 162.6 cm (5' 4 ) 03/16/2024 10:2 2 AM EST Body Mass Index 26.4 03/16/2024 10:22 AM EST Plan of Treatment Upcoming Encounters Date Type Department Care Team (Late st Contact Info) Description 05/04/2024 11:00 AM EDT Procedure visit Orthopedic Surgery - [place] [address] [facility] [address] [place] [phone] Haley Lara MD [address] [phone] 06/13/2024 10:15 AM EDT Office Visit Adult Medicine [facility] [address] [place] [address] Meenakshi Garcia PA [address] [place] [address] Health Maintenance Due Date Last Done Comments Diabetes: Annual Foot Exam 1970 Diabetes: Annual Retina Eye Exam 1970 Hepatitis A Vaccines (1 of 2 - Risk 2-dose series) 09/03/1979 Zoster Vaccines (1 of 2) 2010 DTaP,Tdap,and Td Vaccines (2 - Td or Tdap) 12/08/2017 12/09/2007, 12/09/2007 RSV Immunization Patients 60+ Years Old (1 - Risk 60-74 years 1-dose series) 2020 Colorectal Cancer Screening: Colonoscopy 01/17/2022 Depression Screening 01/17/2022 HIV Screening 01/17/2022 Medicare Annual Wellness Visit 01/17/2022 COVID-19 Vaccine ( season) 2023 03/26/2021, 07/15/2020, 06/15/2020 Influenza Vaccine (#1) 2023 , 10/23/2022, 01/06/2022, Additional history exists Breast Cancer Screening 01/15/2024 01/15/20, 01/09/2021, 03/10/2018 Diabetes: Blood Sugar Control Test (HGBA1C) 04/18/2024 10/20/2023, 10/20/2023 Diabetes: Annual Urine Albumin-Creatinine Ratio (uACR) 10/19/2024 10/20/2023 Pneumococcal Vaccine: 50+ Years (3 of 3 - PCV20 or PCV21) 10/26/2024 10/27/2019, 03/22/2019, 12/19/2013, Additional history exists Pneumococcal Vaccine: Pediatrics (0 to 5 Years) and At-Risk Patients (6 to 64 Years) (3 of 3 - PCV20 or PCV21) 10/26/2024 10/27/2019, 03/22/2019, 12/19/2013, Additional history exists Social Influencers of Health Screening 12/28/2024 12/29/2023 Diabetes: Annual GFR (Glomerular Filtration Rate) 03/16/2025 03/16/2024, 03/11/2024, 03/08/2024, Additional history exists Hypertension/CHF/CAD Annual BMP Blood Test 03/16/2025 03/16/2024, 03/11/2024, 03/08/2024, Additional history exists Cervical Cancer Screening: HPV 11/12/2027 11/11/2022 Cholesterol Screening (Lipid Panel) 10/19/2028 10/20/2023, 10/20/2023 Hepatitis C Screening Completed 03/15/2006 HIB Vaccines Aged Out No longer eligi ble based on patient's age to complete this topic HPV Vaccines Aged Out No longer eligi ble based on patient's age to complete this topic Hepatitis B Vaccines Aged Out No long er eligible based on patient's age to complete this topic IPV Vaccines Aged Out No longer eligi ble based on patient's age to complete this topic MMR Vaccines Aged Out No longer eligi ble based on patient's age to complete this topic Meningococcal ACWY Vaccine Aged Out N o longer eligible based on patient's age to complete this topic Meningococcal B Vacine Aged Out No lo nger eligible based on patient's age to complete this topic RSV Immunization Patients Under 20 months Aged Out No longer eligible based on patient's age to complete this topic Varicella Vaccines Aged Out No longer eligible based on patient's age to complete this topic Procedures Procedure Name Priority Date/Time Associated Diagnosis Comments XR SHOULDER 2+ VIEWS RIGHT Routine 04/05/2024 12:00 PM EST Pain in joint of right shoulder C-PEPTIDE Routine 03/16/2024 11:22 AM EST Hypoglycemia BASIC METABOLIC PANEL Routine 03/16/2024 11:22 AM EST Hypoglycemia BETA HYDROXYBUTYRATE Routine 03/16/2024 11:22 AM EST Hypoglycemia INSULIN, TOTAL Routine 03/16/2024 11:22 AM EST Hypoglycemia POC GLUCOSE STAT 03/12/2024 2:32 AM EST [...] BLOOD Routine 03/11/2024 8: 29 PM EST HEPATIC FUNCTION PANEL STAT Add-on 7:14 PM EST MAGNESIUM Add-On 03/11/2024 7:14 PM EST VITAMIN B12 AND FOLATE Add-On 7:14 PM EST ETHANOL Add-On 03/11/2024 7:14 PM EST CBC WITH AUTO DIFFERENTIAL STAT 03/11/2024 7:14 PM EST BASIC METABOLIC PANEL STAT 03/11/2024 7:14 PM EST CBC AND DIFFERENTIAL STAT 03/11/2024 7:14 PM EST POCT GLUCOSE BLOOD Routine 03/11/2024 6: 58 PM EST POCT GLUCOSE BLOOD Routine 03/09/2024 1: 12 AM EST POCT GLUCOSE BLOOD Routine 03/09/2024 12 :08 AM EST ECG 12-LEAD STAT 03/08/2024 10:57 PM EST POCT GLUCOSE BLOOD Routine 03/08/2024 10 :54 PM EST GERARD URINE CULTURE TUBE STAT 03/08/2024 10:23 PM EST URINALYSIS WITH REFLEX MICROSCOPIC AND CULTURE STAT 03/08/2024 10:23 PM EST URINALYSIS WITH REFLEX MICROSCOPIC AND CULTURE STAT 03/08/2024 10:23 PM EST CULTURE URINE STAT 03/08/2024 10:23 PM EST POCT GLUCOSE BLOOD Routine 03/08/2024 9: 52 PM EST MAGNESIUM Add-On 03/08/2024 9:38 PM EST CBC WITH AUTO DIFFERENTIAL STAT 03/08/2024 9:38 PM EST COMPREHENSIVE METABOLIC PANEL STAT 03/08/2024 9:38 PM EST CBC AND DIFFERENTIAL STAT 03/08/2024 9:38 PM EST POCT GLUCOSE BLOOD Routine 03/08/2024 9: 13 PM EST ECG ANNOTATED 03/08/2024 EMG 2 LIMBS Routine 03/07/2024 3:21 PM EST Paresthesia of skin US HEAD NECK SOFT TISSUE Routine 02/22/2024 10:54 AM EST Thyroid nodule CT ANGIO CHEST WO AND/OR W CONTRAST STAT 01/29/2024 1:17 AM EST Chest pain, unspecified type ECG 12-LEAD STAT 01/28/2024 10:49 PM EST TROPONIN I HIGH SENSITIVITY STAT 01/28/2024 9:04 PM EST ECG 12-LEAD STAT 01/28/2024 8:48 PM EST [id number], RSV, FLU A AND B QUALITATIVE RT-PCR, INTERNAL LAB STAT 01/28/2024 8:41 PM EST XR CHEST 2 VIEWS STAT 01/28/2024 7:33 PM EST CBC WITH AUTO DIFFERENTIAL STAT 01/28/2024 7:12 PM EST MAGNESIUM STAT 01/28/2024 7:12 PM EST LIPASE STAT 01/28/2024 7:12 PM EST COMPREHENSIVE METABOLIC PANEL STAT 01/28/2024 7:12 PM EST CBC AND DIFFERENTIAL STAT 01/28/2024 7:12 PM EST TROPONIN I HIGH SENSITIVITY STAT 01/28/2024 7:12 PM EST ECG 12-LEAD STAT 01/28/2024 6:09 PM EST ECG ANNOTATED 01/28/2024 ECG ANNOTATED 01/28/2024 ECG OUTSIDE 01/28/2024 TROPONIN I HIGH SENSITIVITY STAT 01/23/2024 2:12 AM EST XR CHEST 2 VIEWS STAT 01/23/2024 1:32 AM EST CBC WITH AUTO DIFFERENTIAL STAT 01/23/2024 1:18 AM EST B-TYPE NATRIURETIC PEPTIDE STAT 01/23/2024 1:18 AM EST MAGNESIUM STAT 01/23/2024 1:18 AM EST LIPASE STAT 01/23/2024 1:18 AM EST COMPREHENSIVE METABOLIC PANEL STAT 01/23/2024 1:18 AM EST CBC AND DIFFERENTIAL STAT 01/23/2024 1:18 AM EST TROPONIN I HIGH SENSITIVITY STAT 01/23/2024 1:18 AM EST ECG 12-LEAD STAT 01/23/2024 1:14 AM EST ECG ANNOTATED 01/23/2024 HM URINE ALBUMIN CREATININE RATIO Routine 10/20/2023 HEMOGLOBIN A1C Routine 10/20/2023 LIPID PANEL Routine 10/20/2023 HM HPV Routine 11/11/2022 GISELLE SCREENING DIGITAL Routine 01/14/2022 7:00 PM EST Encounter for screening mammogram for malignant neoplasm of breast HM HEPATITIS C SCREENING Routine 03/15/2006 from Last 3 Months or Most Recently Relevant to Health Maintenance Results * XR Shoulder 2+ Views Right (04/05/2024 12:00 PM EST) Anatomical Region Laterality Modality Upper Extremities, Shoulder Right Comp uted Radiography Narrative 04/05/2024 12:28 PM EST Date of Visit: 04/05/2024 Reason for visit: Right shoulder pain. Views: AP, Grashey, Y, axillary right shoulder Comparison: None Findings: Diffuse osteopenia. ??No fracture, dislocation or lytic lesions. ?? No proximal migration numeral head or narrowing the subacromial space. ?? Mild glenohumeral arthritis noted and AC joint arthritis. Impression: us Amarilis CARRERA IMG XR PROCEDURES Final Resul t * Beta hydroxybutyrate (03/16/2024 11:22 AM EST) Pathologist [facility] Beta-Hydroxybu tyrate 1.3 0.2 - 2.8 mg/dL LAB CHEMISTRY METHOD 03/16/2024 2:57 PM EST [facility] Blood Venous blood specimen / Unknown Venipuncture / Unknown 03/16/2024 11:22 AM EST 03/16/2024 11:22 AM EST Keli CARRERA LAB BLOOD ORDERABLES Final Result [facility] [address] [place] [address], [place] [phone] * (ABNORMAL) Insulin, fasting (03/16/2024 11:22 AM EST) Insulin 2.6(L) 3.0 - 25.0 mcIU/mL LAB CHEMISTRY METHOD 03/16/2024 3:50 PM EST [facility] Blood Venous blood specimen / Unknown Venipuncture / Unknown 03/16/2024 11:22 AM EST 03/16/2024 11:22 AM EST Narrative [facility] - 03/16/2024 3:50 PM EST Insulin reference range based on fasting status. ??Insulin values vary in non- fasting individuals. Keli CARRERA LAB BLOOD ORDERABLES Final Result [facility] [address] [place] [address], [place] [phone] * C-peptide (03/16/2024 11:22 AM EST) [facility] C-Peptide 1.26 0.80 - 3.90 ng/mL LAB CHEMISTRY METHOD 03/16/2024 3:46 PM [facility] Blood Venous blood specimen / Unknown Venipuncture / Unknown 03/16/2024 11:22 AM EST 03/16/2024 11:22 AM EST Keli CARRERA LAB BLOOD ORDERABLES Final Result Performing Organization Address City/[facility]/ZIP Co de Phone Number [facility] [address] [place] [address], [place] [phone] * Basic metabolic panel (03/16/2024 11:22 AM EST) Only the most recent of2 resultswithin the time period is included. [facility] Sodium 142 133 - 145 mmol/L LAB CHEMISTRY METHOD 03/16/2024 2:57 PM [facility] Potassium 3.5 3.5 - 5.5 mmol/L LAB CHEMISTRY METHOD 03/16/2024 2:57 PM [facility] Chloride 109 96 - 110 mmol/L LAB CHEMISTRY METHOD 03/16/2024 2:57 PM [facility] CO2 26 21 - 32 mmol/L LAB CHEMISTRY METHOD 03/16/2024 2:57 PM [facility] Anion Gap 7 3 - 11 LAB CHEMISTRY METHOD 03/16/2024 2:57 PM [facility] Glucose 82 70 - 100 mg/dL LAB CHEMISTRY METHOD 03/16/2024 2:57 PM [facility] BUN 9 5 - 25 mg/dL LAB CHEMISTRY METHOD 03/16/2024 2:57 PM EST [facility] Creatinine 0.92 0.50 - 1.10 mg/dL LAB CHEMISTRY METHOD 03/16/2024 2:57 PM [facility] eGFR 70 >=60 mL/min/1. 73m2 LAB CHEMISTRY METHOD 03/16/2024 2:57 PM EST [facility] Comment:Calculation based on the??Chronic Kidney Disease Epidemiology Collaboration (CKD-EPI) equation refit??without adjustment for race. BUN/Creatinine Ratio 9.8 LAB CHEMISTRY METHOD 03/16/2024 2:57 PM [facility] Calcium 8.8 8.5 - 10.5 mg/dL LAB CHEMISTRY METHOD 03/16/2024 2:57 PM [facility] Blood Venous blood specimen / Unknown Venipuncture / Unknown 03/16/2024 11:22 AM EST 03/16/2024 11:22 AM EST us Keli CARRERA LAB BLOOD ORDERABLES Final Result [facility] [address] [place] [address], * POCT glucose manually resulted (03/12/2024 2:32 AM EST) Only the most recent of2 resultswithin the time period is included. Glucose POC 82 70 - 110 mg/dL Blood Capillary blood specimen / Unknown 03/12/2024 2:32 AM EST Lizzie CARRERA POINT OF CARE TEST ENTER/EDIT ORDERABLES Final Result * POCT Glucose, blood (03/12/2024 2:30 AM EST) Only the most recent of10 resultswithin the time period is included. Glucose POCT 82 70 - 100 mg/dL 03/12/2024 2:31 AM EST [facility] Blood Capillary blood specimen / Unknown 03/12/2024 2:30 AM EST 03/12/2024 2:32 AM EST Yvon Dupont MD LAB POINT OF CARE TE ST DOCKED DEVICE UNSOLICITED RESULTS Final Result [facility] [address] [place] [address], [place] [phone] * US Abdomen Limited (03/12/2024 12:35 AM [...] IMG US PROCEDURES Final Resul t * CT Abdomen Pelvis w Contrast (03/11/2024 [...] within the lumbar spine and thoracic spine. [id number] degenerative changes are noted in the hip [...] noted within the lumbar spine and thoracicspine. [id number] degenerative changes are noted in the hip [...] by: Kvng Rodriguez M.D. on 03/11/2024 23:18:19 Yvon Dupont MD [facility] CT PROCEDURES Final Result * (ABNORMAL) Vitamin B12 and folate (03/11/2024 7:14 PM EST) Vitamin B-12 391 250 - 900 pcg/mL LAB CHEMISTRY METHOD 03/11/2024 10:18 PM EST [facility] Folate >20.0(H) 2.8 - 17.0 ng/ml LAB CHEMISTRY METHOD 03/11/2024 10:18 PM EST [facility] Blood Venous blood specimen / Unknown Venipuncture / Unknown 03/11/2024 7:14 PM EST 03/11/2024 7:19 PM EST us Lizzie CARRERA LAB BLOOD ORDERABLES Final Re sult [facility] [address] [place] [address], [place] [phone] * (ABNORMAL) CBC auto differential (03/11/2024 7:14 PM EST) Only the most recent of4 resultswithin the time period is included. Pathologist [facility] WBC 8.2 4.8 - 10.8 K/mcL LAB HEMETOLOGY METHOD 03/11/2024 7:30 PM [facility] RBC 3.70(L) 3.80 - 4.80 M/mcL LAB HEMETOLOGY METHOD 03/11/2024 7:30 PM [facility] Hemoglobin 11.6 11.5 - 16.0 g/dL LAB HEMETOLOGY METHOD 03/11/2024 7:30 PM [facility] Hematocrit 34.3(L) 35.0 - 47.0 % LAB HEMETOLOGY METHOD 03/11/2024 7:30 PM [facility] MCV 93.2 79.0 - 98.0 FL LAB HEMETOLOGY METHOD 03/11/2024 7:30 PM [facility] MCH 31.5 27.0 - 32.0 pcg LAB HEMETOLOGY METHOD 03/11/2024 7:30 PM [facility] MCHC 33.8 32.0 - 37.0 g/dL LAB HEMETOLOGY METHOD 03/11/2024 7:30 PM [facility] RDW 14.1 11.0 - 15.0 % LAB HEMETOLOGY METHOD 03/11/2024 7:30 PM [facility] Platelets 152 130 - 400 K/mcL LAB HEMETOLOGY METHOD 03/11/2024 7:30 PM [facility] MPV 11.9(H) 7.0 - 11.0 FL LAB HEMETOLOGY METHOD 03/11/2024 7:30 PM [facility] NRBC 0.0 <1.0 % LAB HEMETOLOGY METHOD 03/11/2024 7:30 PM [facility] NRBC Absolute 0.00 <0.10 K/mcL LAB HEMETOLOGY METHOD 03/11/2024 7:30 PM [facility] Neutrophils Relative 51.5 % LAB HEMETOLOGY METHOD 03/11/2024 7:30 PM [facility] Lymphocytes Relative 37.2 % LAB HEMETOLOGY METHOD 03/11/2024 7:30 PM [facility] Monocytes Relative 7.8 % LAB HEMETOLOGY METHOD 03/11/2024 7:30 PM [facility] Eosinophils Relative 2.9 % LAB HEMETOLOGY METHOD 03/11/2024 7:30 PM [facility] Basophils Relative 0.4 % LAB HEMETOLOGY METHOD 03/11/2024 7:30 PM [facility] Immature Granulocytes Relative 0.2 % LAB HEMETOLOGY METHOD 03/11/2024 7:30 PM [facility] Neutrophils Absolute 4.20 1.50 - 7.00 K/mcL LAB HEMETOLOGY METHOD 03/11/2024 7:30 PM [facility] Lymphocytes Absolute 3.04 1.00 - 5.00 K/mcL LAB HEMETOLOGY METHOD 03/11/2024 7:30 PM [facility] Monocytes Absolute 0.64 0.20 - 1.00 K/mcL LAB HEMETOLOGY METHOD 03/11/2024 7:30 PM [facility] Eosinophils Absolute 0.24 0.00 - 0.50 K/mcL LAB HEMETOLOGY METHOD 03/11/2024 7:30 PM EST [facility] Basophils Absolute 0.03 0.00 - 0.20 K/mcL LAB HEMETOLOGY METHOD 03/11/2024 7:30 PM EST [facility] Immature Granulocytes Absolute 0.02 0.00 - 0.03 K/mcL LAB HEMETOLOGY METHOD 03/11/2024 7:30 PM EST [facility] Blood Venous blood specimen / Unknown Venipuncture / Unknown 03/11/2024 7:14 PM EST 03/11/2024 7:19 PM EST us Yvon Dupont MD LAB BLOOD ORDERABLES Final Resu lt Performing Organization Address [facility]/ZIP Co de Phone Number [facility] [address] [place] [address], [place] [phone] * (ABNORMAL) Magnesium (03/11/2024 7:14 PM EST) Only the most recent of4 resultswithin the time period is included. Magnesium 1.5(L) 1.9 - 2.6 mg/dL LAB CHEMISTRY METHOD 03/11/2024 9:48 PM EST [facility] Blood Venous blood specimen / Unknown Venipuncture / Unknown 03/11/2024 7:14 PM EST 03/11/2024 7:19 PM EST us Lizzie CARRERA LAB BLOOD ORDERABLES Final Re sult [facility] [address] [place] [address], [place] [phone] * Ethanol (03/11/2024 7:14 PM EST) Ethanol Level <3 0 - 10 mg/dL LAB CHEMISTRY METHOD 03/11/2024 9:58 PM EST [facility] Blood Venous blood specimen / Unknown Venipuncture / Unknown 03/11/2024 7:14 PM EST 03/11/2024 7:19 PM EST us Lizzie CARRERA LAB BLOOD ORDERABLES Final Re sult [facility] [address] [place] [address], [place] [phone] * (ABNORMAL) Hepatic function panel (03/11/2024 7:14 PM EST) Total Protein 5.2(L) 6.0 - 8.0 g/dL LAB CHEMISTRY METHOD 03/11/2024 10:18 PM EST [facility] Albumin 3.0(L) 3.2 - 5.0 g/dL LAB CHEMISTRY METHOD 03/11/2024 10:18 PM EST [facility] Total Bilirubin 0.2 0.0 - 1.4 mg/dL LAB CHEMISTRY METHOD 03/11/2024 10:18 PM [facility] Bilirubin, Direct <0.1 0.0 - 0.3 mg/dL LAB CHEMISTRY METHOD 03/11/2024 10:18 PM EST [facility] Bilirubin, Indirect LAB CHEMISTRY METHOD 03/11/2024 10:18 PM EST [facility] Comment:Unable to calculate Indirect Bilirubin. ALT (SGPT) 18 10 - 60 unit/L LAB CHEMISTRY METHOD 03/11/2024 10:18 PM [facility] AST (SGOT) 11 10 - 42 unit/L LAB CHEMISTRY METHOD 03/11/2024 10:18 PM [facility] Alkaline Phosphatase 50 42 - 121 unit/L LAB CHEMISTRY METHOD 03/11/2024 10:18 PM [facility] Blood Venous blood specimen / Unknown Venipuncture / Unknown 03/11/2024 7:14 PM EST 03/11/2024 7:19 PM EST us Lizzie CARRERA LAB BLOOD ORDERABLES Final Re sult Performing Organization Address City/[facility]/ZIP Co de Phone Number [facility] [address] [place] [address], * ECG 12 lead (03/08/2024 10:57 PM EST) Only the most recent of5 resultswithin the time period is included. Ventricular Rate ECG 59 BPM GEMUSE Atrial Rate 59 BPM GEMUSE P-R Interval 136 ms GEMUSE QRS Duration 86 ms GEMUSE Q-T Interval 480 ms GEMUSE QTc 475 ms GEMUSE P Wave [place] 32 degrees GEMUSE R [place] -15 degrees GEMUSE T [place] 15 degrees GEMUSE ECG Interpretation Sinus bradycardia Otherwise normal ECG When compared with ECG of 28-JAN-2024 22:49, No significant change was found Confirmed by LIYAH PEREZ ([id number]) on 03/09/2024 4:47:51 PM GEMUSE 03/08/2024 10:5 7 PM EST 03/09/2024 4:47 PM EST us Meenakshi CARRERA ECG ORDERABLES Final Resu lt Performing Organization Address City/[facility]/ZIP Co de Phone Number GEMUSE * (ABNORMAL) Urinalysis with reflex microscopic and culture (03/08/2024 10:23 PM EST) Pathologist [facility] Specific [place] Urine 1.007 1.003 - 1.030 LAB URINALYSIS - AUTOMATED METHOD 03/08/2024 10:52 PM [facility] pH, Urine 7.0 5.0 - 8.0 pH LAB URINALYSIS - AUTOMATED METHOD 03/08/2024 10:52 PM [facility] Leukocytes, Urine Small(A) Negative LAB URINALYSIS - AUTOMATED METHOD 03/08/2024 10:52 PM [facility] Nitrite, Urine Negative Negative LAB URINALYSIS - AUTOMATED METHOD 03/08/2024 10:52 PM [facility] Protein, Urine Negative <=Trace mg/dL LAB URINALYSIS - AUTOMATED METHOD 03/08/2024 10:52 PM [facility] Glucose, Urine Negative Negative mg/dL LAB URINALYSIS - AUTOMATED METHOD 03/08/2024 10:52 PM [facility] Ketones, Urine Negative Negative mg/dL LAB URINALYSIS - AUTOMATED METHOD 03/08/2024 10:52 PM [facility] Urobilinogen , Urine 0.2 0.2 - 1.0 mg/dL LAB URINALYSIS - AUTOMATED METHOD 03/08/2024 10:52 PM [facility] Bilirubin, Urine Negative Negative LAB URINALYSIS - AUTOMATED METHOD 03/08/2024 10:52 PM [facility] Blood, Urine Negative Negative LAB URINALYSIS - AUTOMATED METHOD 03/08/2024 10:52 PM [facility] RBC, Urine 4 0 - 4 /HPF 03/08/2024 10:52 PM [facility] WBC, Urine 3 0 - 4 /HPF 03/08/2024 10:52 PM [facility] Squamous Epithelial, Urine 8 0 - 60 /LPF 03/08/2024 10:52 PM [facility] Non-Squamous Epithelial, Urine Rare Transitional epithelial cells. /LPF 03/08/2024 10:52 PM [facility] Bacteria, Urine Few(A) Negative /HPF 03/08/2024 10:52 PM [facility] Hyaline Casts, Urine 0.00 0 - 3 /LPF 03/08/2024 10:52 PM [facility] Urine Urine specimen obtained by clean catch procedure / Unknown Non-blood Collection / Unknown 03/08/2024 10:23 PM EST 03/08/2024 10:28 PM EST us Meenakshi CARRERA LAB URINE ORDERABLES Final Result Performing Organization Address City/State/[facility] Co de Phone Number [facility] [address] [place] [address], [place] [phone] * Gerard urine culture tube (03/08/2024 10:23 PM EST) [facility] Extra Tube Hold for add-ons. 03/09/2024 12:01 AM EST [facility] Comment:Auto resulted. Urine Urine specimen obtained by clean catch procedure / Unknown Non-blood Collection / Unknown 03/08/2024 10:23 PM EST 03/08/2024 10:28 PM EST Meenakshi CARRERA LAB URINE ORDERABLES Final Result Performing Organization Address [facility] Co de Phone Number [facility] [address] [place] [address], [place] [phone] * Culture urine (03/08/2024 10:23 PM EST) [facility] Culture, Urine No growth 03/10/2024 10:34 AM EST [facility] Urine Urine specimen obtained by clean catch procedure / Unknown Non-blood Collection / Unknown 03/08/2024 10:23 PM EST 03/08/2024 10:52 PM EST Meenakshi CARRERA LAB MICROBIOLOGY - GENERAL ORDERABLES Final Result Performing Organization Address [facility]/ZIP Co de Phone Number [facility] [address] [place] [address], [place] [phone] * (ABNORMAL) Comprehensive metabolic panel (03/08/2024 9:38 PM EST) Only the most recent of3 resultswithin the time period is included. [facility] Sodium 141 133 - 145 mmol/L LAB CHEMISTRY METHOD 03/08/2024 10:27 PM EST [facility] Potassium 3.1(L) 3.5 - 5.5 mmol/L LAB CHEMISTRY METHOD 03/08/2024 10:27 PM [facility] Chloride 113(H) 96 - 110 mmol/L LAB CHEMISTRY METHOD 03/08/2024 10:27 PM [facility] CO2 23 21 - 32 mmol/L LAB CHEMISTRY METHOD 03/08/2024 10:27 PM [facility] Anion Gap 5 3 - 11 LAB CHEMISTRY METHOD 03/08/2024 10:27 PM [facility] Glucose 218(H) 70 - 100 mg/dL LAB CHEMISTRY METHOD 03/08/2024 10:27 PM [facility] BUN 9 5 - 25 mg/dL LAB CHEMISTRY METHOD 03/08/2024 10:27 PM [facility] Creatinine 0.85 0.50 - 1.10 mg/dL LAB CHEMISTRY METHOD 03/08/2024 10:27 PM [facility] eGFR 77 >=60 mL/min/1. 73m2 LAB CHEMISTRY METHOD 03/08/2024 10:27 PM [facility] Comment:Calculation based on the??Chronic Kidney Disease Epidemiology Collaboration (CKD-EPI) equation refit??without adjustment for race. BUN/Creatinine Ratio 10.6 LAB CHEMISTRY METHOD 03/08/2024 10:27 PM [facility] Calcium 8.0(L) 8.5 - 10.5 mg/dL LAB CHEMISTRY METHOD 03/08/2024 10:27 PM [facility] AST (SGOT) 9(L) 10 - 42 unit/L LAB CHEMISTRY METHOD 03/08/2024 10:27 PM [facility] ALT (SGPT) 14 10 - 60 unit/L LAB CHEMISTRY METHOD 03/08/2024 10:27 PM [facility] Alkaline Phosphatase 46 42 - 121 unit/L LAB CHEMISTRY METHOD 03/08/2024 10:27 PM [facility] Total Protein 4.9(L) 6.0 - 8.0 g/dL LAB CHEMISTRY METHOD 03/08/2024 10:27 PM EST [facility] Albumin 2.9(L) 3.2 - 5.0 g/dL LAB CHEMISTRY METHOD 03/08/2024 10:27 PM EST [facility] Total Bilirubin 0.6 0.0 - 1.4 mg/dL LAB CHEMISTRY METHOD 03/08/2024 10:27 PM EST [facility] Blood Venous blood specimen / Unknown Venipuncture / Unknown 03/08/2024 9:38 PM EST 03/08/2024 9:57 PM EST Arben Penn MD LAB BLOOD ORDERABLES Final Res ult [facility] [address] [place] [address], * ECG-Annotated (03/08/2024) Only the most recent of4 resultswithin the time period is included. Provider Onbase ECG ORDERABLES Final Result * EMG two limbs (03/07/2024 3:21 PM EST) Narrative Cristy Saha MD - 03/07/2024 3:38 PM EST Please see the attached report. Amarilis CARRERA NEUROLOGY ORDERABLES Final Re sult * US Head Neck Soft Tissue (02/22/2024 10:54 AM EST) Anatomical Region Laterality Modality Head and Neck Ultrasound 02/22/2024 1:31 PM EST Impressions 02/22/2024 1:39 PM EST Heterogeneous thyroid gland with a few very small right thyroid nodules. POS - [id number] -------- FINAL REPORT -------- Dictated By: Marguerite Castaneda Dictated Date: 02/22/2024 13:31 ET Assigned Physician: Marguerite Castaneda Reviewed and Electronically Signed By: Marguerite Castaneda Signed Date: 02/22/2024 13:39 ET Workstation ID: [id number] Transcribed By: Self Edit Transcribed Date: 02/22/2024 13:31 ET Narrative 02/22/2024 1:39 PM EST EXAM: Thyroid ultrasound HISTORY: Heterogeneous thyroid gland with suggestion of multiple nodules on recent CT cervical spine. COMPARISON: None, correlation with CT cervical spine report from 12/27/2023 FINDINGS: Thyroid gland is within normal limits for size: right lobe measures 4.9 x 1.8 x 1.8 cm, left lobe measures 4.5 x 1.4 x 1.8 cm, and the isthmus measures 0.2 cm in thickness. ??Thyroid parenchyma is heterogeneous without hypervascularity on color Doppler. Right lobe: -0.5 x 0.5 x 0.3 cm hypoechoic solid nodule in the anterior mid lobe. ??Margins are smooth, wider than tall, no echogenic foci. -0.5 x 0.4 x 0.3 cm hypoechoic solid nodule in the upper lobe. ??Margins are smooth, wider than tall, no echogenic foci. Left lobe: -No nodule detected. Procedure Note Marguerite Castaneda MD - 02/22/2024 EXAM: Thyroid ultrasound HISTORY: Heterogeneous thyroid gland with suggestion of multiple noduleson recent CT cervical spine. COMPARISON: None, correlation with CT cervical spine report from12/27/2023 FINDINGS: Thyroid gland is within normal limits for size: right lobe measures 4.9 x1.8 x 1.8 cm, left lobe measures 4.5 x 1.4 x 1.8 cm, and the isthmusmeasures 0.2 cm in thickness. Thyroid parenchyma is heterogeneous withouthypervascularity on color Doppler. Right lobe: -0.5 x 0.5 x 0.3 cm hypoechoic solid nodule in the anterior mid lobe.Margins are smooth, wider than tall, no echogenic foci. -0.5 x 0.4 x 0.3 cm hypoechoic solid nodule in the upper lobe. Marginsare smooth, wider than tall, no echogenic foci. Left lobe: -No nodule detected. IMPRESSION: Heterogeneous thyroid gland with a few very small right thyroid nodules. POS - [id number] -------- FINAL REPORT -------- Dictated By: Marguerite Castaneda Dictated Date: 02/22/2024 13:31 ET Assigned Physician: Marguerite Castaneda Reviewed and Electronically Signed By: Marguerite Castaneda Signed Date: 02/22/2024 13:39 ET Workstation ID: [id number] Transcribed By: Self Edit Transcribed Date: 02/22/2024 13:31 ET us Keli CARRERA IMG US PROCEDURES Final Res ult * CT Angio Chest wo and/or w Contrast (01/29/2024 1:17 AM EST) Anatomical Region Laterality Modality Body Computed Tomogra phy 01/29/2024 1:31 AM EST Impressions 01/29/2024 1:31 AM EST Impression: 1. No pulmonary emboli. 2. No thoracic aortic aneurysm or dissection 3. No pneumonia This document has been electronically signed by: Rosalie Estrada MD on 01/29/2024 01:31:13 Narrative 01/29/2024 1:31 AM EST Exam: CTA Chest with IV contrast. Procedure: Contrast was administered. Coronal and sagittal MIP reformats were performed Comparison: None Clinical history: Pain shortness of breath chest pain Findings: No pulmonary emboli. No thoracic aortic aneurysm or dissection. Atherosclerotic calcifications are seen at the aorta and coronary arteries. No hilar or mediastinal adenopathy. No pericardial fluid collection. No pneumothorax. No pleural fluid collection. No pneumonia Visualized liver and spleen do not demonstrate any acute process Fatty infiltration of the pancreas. No gallstones. Single right renal stone. No hydronephrosis. No thoracic spine compression fractures Procedure Note Rosalie Estrada MD - 01/29/2024 Exam: CTA Chest with IV contrast. Procedure: Contrast was administered. Coronal and sagittal MIP reformats were performed Comparison: None Clinical history: Pain shortness of breath chest pain Findings: No pulmonary emboli. No thoracic aortic aneurysm or dissection. Atherosclerotic calcifications are seen at the aorta and coronaryarteries. No hilar or mediastinal adenopathy. No pericardial fluid collection. No pneumothorax. No pleural fluid collection. No pneumonia Visualized liver and spleen do not demonstrate any acute process Fatty infiltration of the pancreas. No gallstones. Single right renal stone. No hydronephrosis. No thoracic spine compression fractures IMPRESSION: Impression: 1. No pulmonary emboli. 2. No thoracic aortic aneurysm or dissection 3. No pneumonia This document has been electronically signed by: Rosalie Estrada MD on 01/29/2024 01:31:[address] PROCEDURES Final Result * Troponin I high sensitivity (01/28/2024 9:04 PM EST) Only the most recent of4 resultswithin the time period is included. [facility] High Sensitivity Troponin I 5 <=54 ng/L LAB CHEMISTRY METHOD 01/28/2024 10:14 PM EST [facility] Blood Venous blood specimen / Unknown Venipuncture / Unknown 01/28/2024 9:04 PM EST 01/28/2024 9:31 PM EST Narrative [facility] - 01/28/2024 10:14 PM EST High levels of biotin in samples may falsely decrease hsTroponin values. ??Use caution when interpreting hsTroponin results in patients taking biotin who exhibit renal impairment (eGFR <60) or in patients taking more than 20 mg/day of biotin. Kathie Kong MD LAB BLOOD ORDERABLES Fin al Result [facility] [address] [place] [address], * [id number], RSV, Influenza A and B qualitative RT-PCR (01/28/2024 8:41 PM EST) [facility] Influenza A PCR Not Detected Not Detected LAB MICROBIOLOGY METHOD 01/28/2024 9:35 PM EST [facility] Influenza B PCR Not Detected Not Detected LAB MICROBIOLOGY METHOD 01/28/2024 9:35 PM EST [facility] RSV PCR Not Detected Not Detected LAB MICROBIOLOGY METHOD 01/28/2024 9:35 PM EST [facility] SARS COV-2 Not Detected Not Detected LAB MICROBIOLOGY METHOD 01/28/2024 9:35 PM EST [facility] Swab Both anterior nares / Unknown Non-blood Collection / Unknown 01/28/2024 8:41 PM EST 01/28/2024 8:51 PM EST Narrative [facility] - 01/28/2024 9:35 PM EST Disclaimer: ??Testing was performed using the [employer] GeneXpert Xpress SARS-CoV-2 _Flu_RSV PLUS PCR assay. ??The manner in which this information is used to guide patient care is the responsibility of the healthcare provider. ??Results should be correlated with the clinical history, epidemiological data, and other data available to the clinician evaluating the patient. ??Negative results do not preclude infection. ??This test has been authorized by the FDA under an Emergency Use Authorization (EUA). ??This test is only authorized for the duration of time the declaration that circumstances exist justifying the authorization of the emergency use of in vitro diagnostic tests for detection of SARS-CoV-2 virus and/or diagnosis of COVID-19 infection under section 564 (b) (1) of the Act, 21 U.S.C 360bbb-3 (b) (1), unless the authorization is terminated or revoked sooner. ?? Reference Range: Not Detected Fact sheet for Healthcare providers can be found at https://www.fda.gov/media/031838/download. ?? Fact sheet for Healthcare patients can be found at https://www.fda.gov/media/329225/download. us Arben Penn MD LAB MICROBIOLOGY - GENERAL ORD ERABLES Final Result [facility] [address] [place] [address], * XR Chest 2 Views (01/28/2024 7:33 PM EST) Only the most recent of2 resultswithin the time period is included. Anatomical Region Laterality Modality Body Radiographic Radha ging 01/29/2024 7:39 AM EST Impressions 01/29/2024 7:41 AM EST No acute chest disease -------- FINAL REPORT -------- Dictated By: Harpreet Weinberg Dictated Date: 01/29/2024 07:39 ET Assigned Physician: Harpreet Weinberg Reviewed and Electronically Signed By: Harpreet Weinberg Signed Date: 01/29/2024 07:41 ET Workstation ID: [id number] Transcribed By: Self Edit Transcribed Date: 01/29/2024 07:39 ET Narrative 01/29/2024 7:41 AM EST EXAMINATION: CHEST CLINICAL INFORMATION: Chest pain COMPARISON: Frontal view 10/24/2023 TECHNIQUE: 2 views of the chest FINDINGS: There is mild tortuosity aorta. The cardiac size, sanjana, vasculature, lungs and visualized pleural margins are within normal limits. There are some osteophytes in the spine. There are surgical changes in the left upper quadrant possibly related to previous bariatric surgery. Procedure Note Harpreet Weinberg MD - 01/29/2024 EXAMINATION: CHEST CLINICAL INFORMATION: Chest pain COMPARISON: Frontal view 10/24/2023 TECHNIQUE: 2 views of the chest FINDINGS: There is mild tortuosity aorta. The cardiac size, sanjana, vasculature, lungsand visualized pleural margins are within normal limits. There are some osteophytes in the spine. There are surgical changes in theleft upper quadrant possibly related to previous bariatric surgery. IMPRESSION: No acute chest disease -------- FINAL REPORT -------- Dictated By: Harpreet Weinberg Dictated Date: 01/29/2024 07:39 ET Assigned Physician: aHrpreet Weinberg Reviewed and Electronically Signed By: Harpreet Weinberg Signed Date: 01/29/2024 07:41 ET Workstation ID: [id number] Transcribed By: Self Edit Transcribed Date: 01/29/2024 07:39 ET us Kathie Kong MD IMG XR PROCEDURES Final Result * Lipase (01/28/2024 7:12 PM EST) Only the most recent of2 resultswithin the time period is included. Pathologist [facility] Lipase 17 13 - 75 unit/L LAB CHEMISTRY METHOD 01/28/2024 8:19 PM EST [facility] Blood Venous blood specimen / Unknown Venipuncture / Unknown 01/28/2024 7:12 PM EST 01/28/2024 7:47 PM EST Ktahie Kong MD LAB BLOOD ORDERABLES Fin al Result Performing Organization Address City/[facility]/ZIP Co de Phone Number [facility] [address] [place] [address], [place] [phone] * ECG-Outside (01/28/2024) Provider Onbase ECG ORDERABLES Final Result * B-type natriuretic peptide (01/23/2024 1:18 AM EST) [facility] BNP 34 <=100 pcg/mL LAB CHEMISTRY METHOD 01/23/2024 2:04 AM EST [facility] Blood Venous blood specimen / Unknown Venipuncture / Unknown 01/23/2024 1:18 AM EST 01/23/2024 1:28 AM EST Kathie Kong MD LAB BLOOD ORDERABLES Fin al Result Performing Organization Address City/[facility]/ZIP Co de Phone Number [facility] [address] [place] [address], [place] [phone] * HM Urine Albumin Creatinine Ratio (10/20/2023) [facility] HM Urine Albumin Creatinine Ratio abstracted Historical Provider HEALTH MAINTENANCE Final Result * Hemoglobin A1c (10/20/2023) [facility] Hemoglobin A1C 4.8 <=6.5 % Blood Venous blood specimen / Unknown us Historical Provider LAB BLOOD ORDERABLES Mita l Result * (ABNORMAL) Lipid panel (10/20/2023) LDL/HDL Ratio 3 0 - 4 Triglycerides 176(A) 0 - 150 mg/dL Cholesterol 130 0 - 200 mg/dL HDL 46 >=40 mg/dL LDL Cholesterol 49 0 - 100 mg/dL Blood Venous blood specimen / Unknown Historical Provider LAB BLOOD ORDERABLES Mita l Result * Cervical Cancer Screening: HPV (11/11/2022) Cervical Cancer Screening: HPV abstracted; negative Historical Provider HEALTH MAINTENANCE Final Result * GISELLE SCREENING DIGITAL (01/14/2022 7:00 PM EST) Anatomical Region Laterality Modality Mammography 01/14/2022 10:2 7 AM EST Narrative 01/14/2022 7:00 PM EST [facility] Diagnostic Imaging Department [address] [place] [address] Patient: ??MARGOT QUINTERO ?/Age/Sex: 1960 - 61 - F Unit#: ??[id number] ? Location/Status: ??SPDIMAM/REG CLI ? Mnemonic/Ordering Site: ??DIGSC/SPMAM Ordering Physician: ??KAT BECERRIL Giselle Screening Digital - 01/14/22 - 1103 History: Bilateral breast cancer screening. ??Family history breast cancer affecting maternal grandmother. Technique: Bilateral digital mammography. Conventional CC and MLO projections with tomosynthesis MLO views and computer aided detection. Comparison: 01/09/2021, dating back to 09/05/2002. Breast density: Breast tissue consists of mostly fatty tissue, category a density (as calculated by [employer] software). Findings: There is no suspicious group of microcalcification, suspicious mass, architectural distortion or suspicious change in breast density. Impression: No mammographic evidence of malignancy. BIRADS category 1; negative study, 3341F 32041, 11376 A negative mammogram in the face of a suspicious abnormality does not exclude the possibility of malignancy nor alter the indications for biopsy. Note: Patient information entered ??into a reminder system with a target due date for the next mammogram; PQRI II 7038F Dictating Physician: ??JACEK VELEZ MD Electronically Signed by: ??JACEK VELEZ MD Dic Date/Time: ??01/14/22 185 Sign date/Time: ??01/14/22 1900 Procedure Note Jacek Velez MD - 03/12/2023 [facility] Diagnostic Imaging Department [address] [place], [place] [id number] Patient: MARGOT QUINTERO D.O.B./Age/Sex: 1960 - 61 - F Unit#: [id number] [facility]Ordering [facility]: [facility] Ordering Physician: KAT BECERRIL Giselle Screening Digital - 01/14/22 - 1103 History: Bilateral breast cancer screening. Family history breastcancer affecting maternal grandmother. Technique: Bilateral digital mammography. Conventional CC and MLOprojections with tomosynthesis MLO views and computer aided detection. Comparison: 01/09/2021, dating back to 09/05/2002. Breast density: Breast tissue consists of mostly fatty tissue, categorya density (as calculated by [employer] software). Findings: There is no suspicious group of microcalcification, suspicious mass, architectural distortion or suspicious change in breast density. Impression: No mammographic evidence of malignancy. BIRADS category 1; negative study, 3341F 12133, 93905 A negative mammogram in the face of a suspicious abnormality does notexclude the possibility of malignancy nor alter the indications for biopsy. Note: Patient information entered into a reminder system with a targetdue date for the next mammogram; PQRI II 7025F Dictating Physician: JACEK VELEZ MD Electronically Signed by: JACEK VELEZ MD Dic Date/Time: 01/14/221857 Sign date/Time: 01/14/22 190 Kat Nevarez MD IMG BI PROCEDURES Final Result * Hepatitis C Screening (03/15/2006) Hepatitis C Screening abstracted Historical Provider HEALTH MAINTENANCE Final Result from Last 3 Months or Most Recently Relevant to Health Maintenance Insurance [facility] MEDICARE Member Subscriber Plan / Payer (Ef fective 2019-Present) Name:Margot Quintero Relation to Subscriber:Self Name:Margot Quintero Payer ID:[id number] Group ID:[id number] Type:Not on file Address: [address] [place] [id number] Advance Directives Documents on File Type Date Recorded Patient Operations And Maintenance Technican Expl anation Advance Directives and Living Will 12/28/2023 2:14 PM Geovanny Quintero Health Care Proxy * Full Code - Default (Latest Code Status on File) Date Activated Date Inactivated Comments 12/27/2023 8:46 PM 12/29/2023 8:48 PM This is or emily is used when code status has not been discussed with the patient, or code status is otherwise unknown/unconfirmed To update the patient's code status, place a code status order. Do not modify or discontinue any currently active code status orders. Care Teams Senior Windows Engineer Relationship Specialty Start Date End Date Kat Nevarez MD [address] [place] [address] PCP - General Internal Medicine 01/18/10
--- OUTSIDE RECORDS SUMMARY | 2024-04-07 13:22 | XMS_ITS | Encounter Summary ---
Author Organization [facility] Address [address] [place] [address] Care Team Providers Care Steel Grinder Name Role Phone Kat Nevarez MD Primary Care Prov ider Reason for Visit * Reason Onset Date Comments Fitting for DME 04/06/2024 Encounter Details Date Type Department Care Team ([facility] st Contact Info) Description 04/06/2024 Telephone Adult Medicine [facility] Medicine [address] [place] [phone] Kat Nevarez MD [address] [place] [address] Fitting for DME Social History Tobacco Use Types Packs/Day Years [...] your loved ones. For example, director child abuse therapy or elderly care for an older adult? [...] Progress Notes * Karen Ac MA - 04/07/2024 11:55 AM EST Faxed to [facility] @ [phone] * Karen Ac MA - 04/06/2024 1:52 PM EST In your in basket. Thank you in advance * Richard Lira - 04/06/2024 10:21 AM EST Pt is looking to order large reusable bed pads, she asked her home care nurse about them. Will thisrequire a office visit first for a face to face for DME? documented in this encounter Plan of Treatment Upcoming Encounters Date Type Department Care Team (Late st Contact Info) Description 05/04/2024 11:00 AM EDT Procedure visit Orthopedic Surgery - [place] [address] [phone] Haley Lara MD [address] [address] 06/13/2024 10:15 AM EDT Office Visit Adult Medicine - [place] [address] [place] [phone] Meenakshi Garcia PA [address] [place] [address] documented as of this encounter Visit Diagnoses Diagnosis Type 2 diabetes mellitus with other specified complication, with long-term current use of insulin ([facility])- Primary Congestive heart failure, unspecified HF chronicity, unspecified heart failure type ([facility]) Urinary incontinence, unspecified type documented in this encounter Orders General Supply Count Last Ordered Date First Or dered Date GENERAL SUPPLY 1 04/06/2024 documented in this encounter Care Teams Steel Grinder Relationship Specialty Start Date End Date Kat Nevarez MD [address] [place], [place] PCP - General Internal Medicine 01/18/10 documented as of this encounter
--- OUTSIDE RECORDS SUMMARY | 2024-04-07 13:22 | XMS_ITS | Encounter Summary ---
Author Organization [facility] Address [address] [place] [address] Care Team Providers Care Finished Metal Repairer Name Role Phone Kat Nevarez MD Primary Care Prov ider Reason for Visit * Reason Onset Date Comments Faxed Order [id number] 02/10/2024 Encounter Details Date Type Department Care Team ([facility] st Contact Info) Description 02/10/2024 Telephone Adult Medicine - [place] [address] [place] [phone] Kat Nevarez MD [address] [place] [address] Faxed Order [id number] Social History Tobacco Use Types Packs/Day Years [...] Notes * Karen Ac MA - 03/21/2024 12:[address] Govea to sign fax and file. * Marika Landa - 03/20/2024 3:08 PM EST Has this been signed and faxed? Duplicate in folder if needed * Marika Landa - 02/10/2024 9:39 AM EST PLEASE CLOSE MESSAGE WHEN ORDER HAS BEEN FAXED Faxed order [id number] received from [facility], requesting signature from provider. Please sign and fax back to [phone]. Order in orange folder documented in this encounter Plan of Treatment Upcoming Encounters Date Type Department Care Team (Late st Contact Info) Description 05/04/2024 11:00 AM EDT Procedure visit Orthopedic Surgery - [place] [address] [phone] Haley Lara MD [address] [address] 06/13/2024 10:15 AM EDT Office Visit Adult Medicine - [place] [address] [place] [phone] Meenakshi Garcia PA [address] [place] [address] documented as of this encounter Visit Diagnoses Not on filedocumented in this encounter Care Teams Finished Metal Repairer Relationship Specialty Start Date End Date Kat Nevarez MD [address] [place] [address] PCP - General Internal Medicine 01/18/10 documented as of this encounter
--- OUTSIDE RECORDS SUMMARY | 2024-04-07 13:22 | XMS_ITS ---
Author Organization [facility] Address [address] [place] [address] Care Team Providers Care Deck Officer Name Role Phone VANDANA DIETRICH Primary Care Provide r Bishnu Titus Jr, Lobo Unavailable REASON FOR VISIT abd pain Encounters Encounter Location Date Provider Diagnosis [facility] Inpatient [address] [place] [phone] 09/09/2023 Lobo Titus Jr PLAN OF TREATMENT No Information
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
== END 2024-04-07 11:49 | disposition home or self-care (01) ==
PROVIDERS: PCP Internal Medicine; Visit Provider Surgery
DX: K63.1 Perforation of intestine (nontraumatic) (principal); R10.11 Right upper quadrant pain
CPT/HCPCS: 99214

== ENCOUNTER → 2024-04-07 11:17 | Outpatient (BNVA) | payer OTHER, SELFPAY | PROVIDERS: PCP Internal Medicine; Visit Provider Surgery | DX: R10.11 Right upper quadrant pain (principal); K63.1 Perforation of intestine (nontraumatic) | CPT/HCPCS: 99212 ==

== ENCOUNTER 2024-08-22 08:52 | Outpatient (REF) | payer OTHER, SELFPAY ==
--- NOTE | ~2024-08-22 | CT_ITS ---
EXAMINATION: CT ABDOMEN PELVIS WITH IV CONTRAST HISTORY: R10.11 - Right upper quadrant pain COMPARISON: Comparison is made with the prior examination dated 09/02/2023. TECHNIQUE: CT scan of the abdomen and pelvis was performed following administration of 85 mL Omnipaque 350 using standard departmental protocol. Coronal and sagittal reformatted images were generated and reviewed. The patient received oral contrast material. This CT exam was performed with one or more of the following dose reduction techniques: automated exposure control, adjustment of the mA and/or kV according to patient size, use of iterative reconstruction technique. DLP: 363 mGy-cm FINDINGS: LOWER CHEST: The visualized lung bases are clear. There is no pleural effusion. CARDIOVASCULATURE: The heart is normal in size. There is no pericardial effusion. LIVER: The liver is normal in size and contour. No liver mass is identified. The hepatic and portal veins are patent. GALLBLADDER / BILE DUCTS: The gallbladder is unremarkable. There is no intra or extrahepatic biliary ductal dilatation. SPLEEN: The spleen is normal in size. No focal splenic lesion is identified. PANCREAS: The pancreas is unremarkable in appearance. ADRENAL GLANDS: Within normal limits. KIDNEYS/RETROPERITONEUM: There is right renal scarring. No renal calculi are identified. There is no hydronephrosis. No renal masses are identified. LYMPH NODES: No abdominal or pelvic lymphadenopathy. VASCULATURE: The abdominal aorta is normal in caliber. MESENTERY/PERITONEUM: No free fluid. No masses. There is no free intraperitoneal gas. STOMACH: Postsurgical changes are noted involving the stomach. SMALL BOWEL: The small bowel is normal in caliber. COLON: The colon is unremarkable. APPENDIX: Normal. URINARY BLADDER/PELVIC ORGANS: The urinary bladder is collapsed, limiting evaluation. The patient is status post hysterectomy. BONES / SOFT TISSUES: There is posterior fusion of L3 and L4. CT/CT abdomen pelvis w IV con IMPRESSION: Postsurgical changes involving the stomach. No acute abnormality is identified. Electronically signed by: Rush Proctor MD 08/22/2024 09:57 AM EDT
--- OUTSIDE RECORDS SUMMARY | 2024-08-22 09:04 | XMS_ITS | Encounter Summary ---
Author Organization [facility] Address [address] [place] [address] Care Team Providers Care Academic Support Specialist Name Role Phone Kat Nevarez MD Primary Care Prov ider Encounter Details Date Type Department Care Team (Late st Contact Info) Description 05/07/2024 Lab Requisition [facility] - Main Lab [address] [facility] [place] [address] Cesar Albert MD [address] [place] [address] [address] [place], [address] Anemia, unspecified; Type 2 diabetes mellitus without complications (CMS/HCC V24, CMS/HCC V28); Chronic obstructive pulmonary disease, unspecified (CMS/HCC V24, CMS/HCC V28) Social History Tobacco Use Types Packs/Day Years [...] your loved ones. 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 Answer Date of Assessment Author No 04/21/2024 3:18 PM EDT Chanel Khan RN * Are you blind or do you have serious difficulty seeing, even when wearing glasses? Answer Date of Assessment Author No 04/21/2024 3:18 PM EDT Chanel Khan RN * Do you have serious difficulty walking or climbing stairs? Answer Date of Assessment Author Yes 04/21/2024 3:18 PM EDT Chanel Khan RN * Do you have serious difficulty dressing or bathing? Answer Date of Assessment Author Yes 04/21/2024 3:18 PM EDT Chanel Khan RN * Because of a physical, mental, or emotional condition, do you have serious difficulty doing errandsalone such as visiting the doctor? Answer Date of Assessment Author No 04/21/2024 3:18 PM EDT Chanel Khan RN documented as of this encounter Mental Status * Because of a physical, mental, or emotional condition, do you have serious difficulty concentrating, remembering, or making decisions? (5 years old or older) Answer Entry Date Author No 04/21/2024 3:18 PM EDT Chanel Khan RN documented in this encounter Plan of Treatment Upcoming Encounters Date Type Department Care Team (Late st Contact Info) Description 09/08/2024 10:00 AM EDT Evaluation [facility] [place] [address] [address] Christy Ng PT 09/28/2024 11:00 AM EDT Office Visit Adult Medicine [facility] [address] [place] [address] Kat Nevarez MD [address] [place] [address] 06/22/2025 10:30 AM EDT Office Visit Bariatric Surgery - [place] [address] [address] Gladys Jones MD [address] [address] documented as of this encounter Procedures Procedure Name Priority Date/Time Associated Diagnosis Comments COMPLETE BLOOD COUNT Routine 05/08/2024 6:02 AM EDT Anemia, unspecified Type 2 diabetes mellitus without complications Chronic obstructive pulmonary disease, unspecified BASIC METABOLIC PANEL Routine 05/08/2024 6:02 AM EDT Anemia, unspecified Type 2 diabetes mellitus without complications Chronic obstructive pulmonary disease, unspecified documented in this encounter Results * (ABNORMAL) Basic metabolic panel (05/08/2024 6:02 AM EDT) Sodium 146(H) 133 - 145 mmol/L LAB CHEMISTRY METHOD 05/08/2024 12:15 PM [facility] Potassium 3.7 3.5 - 5.5 mmol/L LAB CHEMISTRY METHOD 05/08/2024 12:15 PM [facility] Chloride 111(H) 96 - 110 mmol/L LAB CHEMISTRY METHOD 05/08/2024 12:15 PM [facility] CO2 28 21 - 32 mmol/L LAB CHEMISTRY METHOD 05/08/2024 12:15 PM [facility] Anion Gap 7 3 - 11 LAB CHEMISTRY METHOD 05/08/2024 12:15 PM [facility] Glucose 76 70 - 100 mg/dL LAB CHEMISTRY METHOD 05/08/2024 12:15 PM [facility] BUN 9 5 - 25 mg/dL LAB CHEMISTRY METHOD 05/08/2024 12:15 PM [facility] Creatinine 0.65 0.50 - 1.10 mg/dL LAB CHEMISTRY METHOD 05/08/2024 12:15 PM [facility] eGFR 99 >=60 mL/min/1. 73m2 LAB CHEMISTRY METHOD 05/08/2024 12:15 PM [facility] Comment:Calculation based on the Chronic Kidney Disease Epidemiology Collaboration (CKD-EPI) equation refit without adjustment for race. BUN/Creatinine Ratio 13.8 LAB CHEMISTRY METHOD 05/08/2024 12:15 PM [facility] Calcium 8.4(L) 8.5 - 10.5 mg/dL LAB CHEMISTRY METHOD 05/08/2024 12:15 PM EDT [facility] Blood Venous blood specimen / Unknown Venipuncture / Unknown 05/08/2024 6:02 AM EDT 05/08/2024 10:44 AM EDT us Cesar Albert MD LAB BLOOD ORDERABLES Final Resul t [facility] [address] [place] [address], [place] [phone] * (ABNORMAL) Complete blood count (05/08/2024 6:02 AM EDT) WBC 5.3 4.8 - 10.8 K/mcL LAB HEMETOLOGY METHOD 05/08/2024 11:40 AM [facility] RBC 3.40(L) 3.80 - 4.80 M/[facility] LAB HEMETOLOGY METHOD 05/08/2024 11:40 AM [facility] Hemoglobin 10.9(L) 11.5 - 16.0 g/dL LAB HEMETOLOGY METHOD 05/08/2024 11:40 AM [facility] Hematocrit 32.6(L) 35.0 - 47.0 % LAB HEMETOLOGY METHOD 05/08/2024 11:40 AM [facility] MCV 96.2 79.0 - 98.0 FL LAB HEMETOLOGY METHOD 05/08/2024 11:40 AM [facility] MCH 32.2(H) 27.0 - 32.0 pcg LAB HEMETOLOGY METHOD 05/08/2024 11:40 AM [facility] MCHC 33.4 32.0 - 37.0 g/dL LAB HEMETOLOGY METHOD 05/08/2024 11:40 AM [facility] RDW 12.8 11.0 - 15.0 % LAB HEMETOLOGY METHOD 05/08/2024 11:40 AM EDT [facility] Platelets 86(L) 130 - 400 K/mcL LAB HEMETOLOGY METHOD 05/08/2024 11:40 AM EDT [facility] Comment:previously verified by slide MPV 13.8(H) 7.0 - 11.0 FL LAB HEMETOLOGY METHOD 05/08/2024 11:40 AM EDT [facility] NRBC 0.0 <1.0 % LAB HEMETOLOGY METHOD 05/08/2024 11:40 AM EDT [facility] NRBC Absolute 0.00 <0.10 K/mcL LAB HEMETOLOGY METHOD 05/08/2024 11:40 AM EDT [facility] Blood Venous blood specimen / Unknown Venipuncture / Unknown 05/08/2024 6:02 AM EDT 05/08/2024 10:44 AM EDT us Cesar Albert MD LAB BLOOD ORDERABLES Final Resul t [facility] [address] [place] [address], documented in this encounter Visit Diagnoses Diagnosis Anemia, unspecified Type 2 diabetes mellitus without complications (CMS/HCC V24, CMS/HCC V28) Chronic obstructive pulmonary disease, unspecified (CMS/HCC V24, CMS/HCC V28) documented in this encounter Additional Health Concerns Infection Onset Date Last Indicated Resolved Time Respiratory Rule-Out 07/22/2024 07/22/2024 025 2:14 AM EDT COVID-19 Rule-Out 07/22/2024 07/22/2024 07/22/2024 2:14 AM EDT documented as of this encounter Care Teams Academic Support Specialist Relationship Specialty Start Date End Date Kat Nevarez MD [address] [place] [id number] PCP - General Internal Medicine 01/18/10 documented as of this encounter
--- OUTSIDE RECORDS SUMMARY | 2024-08-22 09:04 | XMS_ITS | Data Portability ---
Author Organization [facility], Main Office Address [address] [place] [address] [address] [place] [address] Assessment Encounter Date Assessment Date Assessment LastModified by Organization Details LastModified Time 04/25/2024 04/25/2024 Labs 04/25: Na 145-K 3.4-Bun 10- cr 0.7-wbc 4.8-hgb 12.3-hct 36.7 -plt 127 Not available 05/01/2024 13:11:44 05/01/2024 05/01/2024 Labs 04/25: Na 145-K 3.4-Bun 10- cr 0.7-wbc 4.8-hgb 12.3-hct 36.7 -plt 127 Labs 04/26: Na 143-K 3.9-Bun 10-Cr 0.7-wbc 4.4-hgb 11.9-hct 35.9- plt 116 Not available 05/01/2024 13:56:05 05/04/2024 05/04/2024 Labs 04/25: Na 145-K 3.4-Bun 10- cr 0.7-wbc 4.8-hgb 12.3-hct 36.7 -plt 127 Labs 04/26: Na 143-K 3.9-Bun 10-Cr 0.7-wbc 4.4-hgb 11.9-hct 35.9- plt 116 Labs 05/02: Na 142-K 4.3-Bun 9- Cr 0.74-wbc 4.5-hgb 11.6 - hct 34.2 -plt Not available 05/04/2024 16:43:25 05/06/2024 05/06/2024 Labs 04/25: Na 145-K 3.4-Bun 10- cr 0.7-wbc 4.8-hgb 12.3-hct 36.7 -plt 127 Labs 04/26: Na 143-K 3.9-Bun 10-Cr 0.7-wbc 4.4-hgb 11.9-hct 35.9- plt 116 Labs 05/02: Na 142-K 4.3-Bun 9- Cr 0.74-wbc 4.5-hgb 11.6 - hct 34.2 -plt Labs 04/25: Na 145-K 3.4-Bun 10- cr 0.7-wbc 4.8-hgb 12.3-hct 36.7 -plt 127 Labs 04/26: Na 143-K 3.9-Bun 10-Cr 0.7-wbc 4.4-hgb 11.9-hct 35.9- plt 116 Labs 04/25: Na 145-K 3.4-Bun 10- cr 0.7-wbc 4.8-hgb 12.3-hct 36.7 -plt 127 [email or web address] Not available 05/06/2024 09:14:43 Plan of Treatment Reminders Order Date Submit Date Provider Last Modified By Organization Details Last Modified Time Details Appointments None record ed. Lab None record ed. Referral None record ed. Procedures None record ed. Surgeries None record ed. Imaging None record ed. Medication Orders None record ed. Patient TargetsNo targets recorded. Patient InstructionsNo instructions recorded. Reason for Referral None Reported. Problems Name Problem SNOMED Code Status Onset Date Resolution Date Notes Provider Name and Address Organization Details Recorded Time Constipati on 51617105 Active 2024 Not Available [facility] 18:38:14 Disorder in remission 381167293 Active 2024 Not Available [facility] 18:38:15 Essential hypertensi on 30196478 Active 2024 Not Available [facility] 18:39:26 Pure hyperchole sterolemia 688292082 Active 2024 Not Available [facility] 18:39:30 Tear of medial meniscus of knee 000116702 Completed 202404/30/2024 Not Available [facility] 07:54:15 Uncomplica justin moderate persistent asthma 552914070 Active 2024 Not Available [facility] 18:41:16 Central sleep apnea syndrome 29284667 Active 2024 Not Available [facility] 5 18:41:17 Osteoarthr itis 025853553 Active 2024 Not Available [facility] 18:42:22 Pain of hip region 81360438 Active 2024 Not Available [facility] 18:43:03 Localized adiposity 339541759 Active 2024 Not Available [facility] 18:43:17 Mood disorder 79377434 Active 2024 Not Available [facility] 5 16:00:43 Neurologic al symptom 947831587 Active 2024 Not Available [facility] 5 18:44:52 Bipolar affective disorder, current episode mixed 545241571 Active 2024 Not Available [facility] 5 16:00:41 Anemia 559953700 Active 2024 Not Available [facility] 18:46:20 Chronic obstructiv e pulmonary disease 15745051 Active 2024 Not Available [facility] 16:00:47 Disease 06721964 Active 2024 Not Available [facility] 5 18:47:24 Headache 31542622 Active 2024 Not Available [facility] 5 18:48:34 Chronic pain 65741237 Active 2024 Not Available [facility] 5 18:49:10 Gastroesop hageal reflux disease without esophagiti s 885171259 Active 2024 Not Available [facility] 5 10:40:32 Dizziness and giddiness 630345129 Active 2024 Not Available [facility] 5 10:41:09 Fall Active 2024 Not Available [facility] 5 15:42:00 Anxiety disorder 518909554 Active 2024 Not Available [facility] 5 10:42:22 Restless legs 91883296 Active 2024 Not Available [facility] 5 10:42:58 Pulmonary embolism 03947543 Active 2024 Not Available [facility] 5 10:43:36 Falls 241132557 Active 2024 Not Available [facility] 5 10:44:12 Bipolar disorder 53942784 Active 2024 DEA GUTIÉRREZ [address], [address], [place], [address] , [facility] 5 19:11:55 Muscle weakness 39793418 Active 2024 Not Available [facility] 5 16:01:26 Unsteady when standing 841874036 Active 2024 Not Available [facility] 5 16:01:05 Hyperlipid emia 63445116 Active 2024 DEA GUTIÉRREZ [address], [address], [place], [address] , [facility] 5 14:00:38 Asthenia 43104323 Active 2024 DEA GUTIÉRREZ [address], [address], [place], [address] , [facility] 5 14:00:39 Asthma 959853877 Active 2024 DEA GUTIÉRREZ [address], [address], [place], [address] , [facility] 5 14:00:42 Harmful pattern of use of multiple substances 000632045 Active 2024 DEA GUTIÉRREZ [address], [address], [place], [address] , [facility] 5 14:00:46 Chronic back pain 319389634 Active 2024 DEA GUTIÉRREZ [address], [address], [place], [address] , [facility] 5 14:00:48 Type 2 diabetes mellitus 21192947 Active 2024 DEA GUTIÉRREZ [address], [address], [place], [address] , [facility] 5 14:00:54 Disorder of nervous system due to type 2 diabetes mellitus 710992893 Active 2024 Not Available [facility] 5 05:43:30 Depressive disorder 39429269 Active 2024 Not Available [facility] 5 05:42:19 Problem Notes None recorded. Medical Equipment None Reported. Allergies Allergen ID Allergen Name Allergen Category Reaction Reaction Severity Criticality Documentation Date Start Date Code Code System Note Provider Name and Address Organization Details Recorded Time 94788 Product containin g angiotens in-conver ting enzyme inhibitor (product) medicatio n cough Not available Not available 04/24/20242024 08586 009 SNOMED Not Available [facility] 18:32:56 39586 cephalexi n medicatio n swelling Not available Not available 04/24/20242024 2231 RxNorm Not Available [facility] 18:33:56 75285 glipizide medicatio n Not available Not available Not available 04/24/20242024 4821 RxNorm Not Available [facility] 18:34:33 09764 glucagon (rDNA) medicatio n Not available Not available Not available 04/24/20242024 97211 6 RxNorm Not Available [facility] 18:35:11 77484 ibuprofen medicatio n rash Not available Not available 04/24/20242024 5640 RxNorm Not Available [facility] 18:35:48 39818 metformin medicatio n itching Not available Not available 04/24/20242024 6809 RxNorm Not Available [facility] 18:36:25 08280 ropinirol e medicatio n vomiting Not available Not available 04/24/20242024 15230 RxNorm gener ic only Amarilis Sandoval MD [address], [address], [place], [address], [facility] 19:06:11 Medications Name Sig Start Date Stop Date Status Note LastModified by Organization Details LastModified Time cyanocobala min (vit B-12) 100 mcg tablet Give 0.5 tablet by mouth one time a day for Supplemen t 2024 active Not Available Not Available Not Avai lable Neurontin 800 mg tablet Give 1 tablet by mouth two times a day for Neuropath y 2024 active Not Available Not Available Not Avai lable amlodipine 5 mg tablet Give 1 tablet by mouth one time a day for HTN 2024 active Not Available Not Available Not Avai lable Lipitor 40 mg tablet Give 1 tablet by mouth in the evening for HLD Avoid grapefrui t juice 2024 active Not Available Not Available Not Avai lable trazodone 100 mg tablet Give 2 tablet by mouth at bedtime for Depressio n CW=312cy 2024 active Not Available Not Available Not Avai lable DSS 100 mg capsule Give 1 capsule by mouth two times a day for constipat ion 2024 active Not Available Not Available Not Avai lable pramipexole 0.25 mg tablet Give 1 tablet by mouth one time a day for Parkinson s 2024 active Not Available Not Available Not Avai lable Tylenol 325 mg tablet Give 2 tablet by mouth every 8 hours as needed for pain/ Headaches 2024 active Not Available Not Available Not Avai lable Ceberclon 1 mg tablet Give 1 tablet by mouth every 8 hours as needed for Anxiety until 5 23:59 05/09 completed Not Available Not Available Not Available furosemide 20 mg tablet Give 1 tablet by mouth one time a day for Edema 2024 active Not Available Not Available Not Avai lable Wellbutrin 100 mg tablet Give 1 tablet by mouth one time a day for Depressan t 2024 active Not Available Not Available Not Avai lable Laxative (sennosides ) 8.6 mg tablet Give 1 tablet by mouth one time a day for constipat ion 2024 active Not Available Not Available Not Avai lable Percocet 5 mg-325 mg tablet Give 1 tablet by mouth every 8 hours as needed for PAIN 05/08 completed Not Available Not Available Not Available Vitamin D3 25 mcg (1,000 unit) tablet Give 2 tablet by mouth one time a day for supplemen t NM=6090 units 2024 active Not Available Not Available Not Avai lable Lyrica 200 mg capsule Give 1 capsule by mouth two times a day for Pain 2024 active Not Available Not Available Not Avai lable melatonin 5 mg tablet Give 2 tablet by mouth at bedtime for Insomnia 2024 active Not Available Not Available Not Avai lable sodium phosphates 19 gram-7 gram/197 mL enema Insert 1 unit rectally every 24 hours as needed for Constipat ion Use only if Bisacodyl Supposito ry is ineffecti ve 2024 active Not Available Not Available Not Avai lable lurasidone 120 mg tablet Give 1 tablet by mouth one time a day for Bipolar 2024 active Not Available Not Available Not Avai lable Eliquis 5 mg tablet Give 1 tablet by mouth two times a day for A-fib Monitor for bleeding, bruising, and black tarry stools 2024 active Not Available Not Available Not Avai lable Trintellix 10 mg tablet Give 1 tablet by mouth one time a day for BIPOLAR DISORDER 04/26 completed Not Available Not Available Not Available Trintellix 20 mg tablet Give 1 tablet by mouth one time a day 2024 active Not Available Not Available Not Avai lable CycloTENS Refill Twan 10 mg tablet and Electrode pads Give 1 tablet by mouth every 8 hours as needed for Muscle Spams 2024 active Not Available Not Available Not Avai lable Acid Casework Specialist (omeprazole ) 20 mg capsule,del ayed release Give 1 capsule by mouth one time a day for GERD Take on empty stomach. Do not crush. May be opened and sprinkled on applesauc e. 2024 active Not Available Not Available Not Avai lable OneLAX Bisacodyl 10 mg rectal suppository Insert 1 supposito ry rectally every 24 hours as needed for constipat ion Use if Senna is Ineffecti ve 2024 active Not Available Not Available Not Avai lable Vitals Date Recorded Body height Heart rate Respiratory rate Body temperature Oxygen saturation Oxygen saturation in Arterial blood by Pulse oximetry Systolic And Diastolic Provider Name and Address Organization Details Last Updated DateTime 5 157.48 cm 71 /min 18 /min 98.1 [degF] 98 % 98 % 132/77 mm[Hg] DEA GUTIÉRREZ [address], [facility] [address], [place], [address] , [facility] 5 13:15:27 Date Recorded Body weight Body mass index (BMI) Body height Heart rate Respiratory rate Body temperature Oxygen saturation Oxygen saturation in Arterial blood by Pulse oximetry Systolic And Diastolic Provider Name and Address Organization Details Last Updated DateTime 5 00067.0 8 g 26.9 kg/m2 157.48 cm 60 /min 17 /min 96.9 [degF] 97 % 97 % 125/85 mm[Hg] Amarilis Sandoval MD [address], [address], [place], [address] , [facility] 5 18:44:52 Date Recorded Body height Heart rate Respiratory rate Body temperature Oxygen saturation Oxygen saturation in Arterial blood by Pulse oximetry Systolic And Diastolic Provider Name and Address Organization Details Last Updated DateTime 5 157.48 cm 60 /min 20 /min 97.7 [degF] 98 % 98 % 112/67 mm[Hg] DEA GUTIÉRREZ [address], [address], [place], [address], [facility] 5 12:30:04 Date Recorded Body height Body temperature Respiratory rate Heart rate Oxygen saturation Oxygen saturation in Arterial blood by Pulse oximetry Systolic And Diastolic Provider Name and Address Organization Details Last Updated DateTime 157.48 cm 97.8 [degF] 20 /min 60 /min 97 % 97 % 99/65 mm[Hg] DEA GUTIÉRREZ [address], [address], [place], [address], [facility] 16:38:14 Social History Question Answer Notes LastModified by [employer] Details LastModified Time Tobacco Smoking Status Never Smoker Amarilis Sandoval MD [address], [address], [place], [address], [facility] 04/28/2024 19:31:55 Do You Have An Advance Directive? Yes Information not available 04/28/2024 What Is Your Code Status? Full Code Information not available 04/28/2024 Where Do You Live? Apartment She Tells Me Alone, But Chart Says With Ex-husban d Information not available 04/28/2024 Legal Guardian? No Informati on not available 04/28/2024 Do You Have A Medical Power Of Functional Manager? Yes Information not available 04/28/2024 What Was The Date Of Your Most Recent Tobacco Screening? 04/28/2024 Information not available 04/28/2024 Do You Have An Out Of Hospital DNR? No Information not available 04/28/2024 What Is Your Relationship Status? Information not available 04/28/2024 Has Tobacco Cessation Counseling Been Provided? No N/a As Pt Is A Non-smoke r Information not available 04/28/2024 Sex: Unknown Functional Status Question Answer Note LastModified by [employer] Details LastModified Time Do you use any illicit or recreational drugs? No Hx of cocaine and crack, last in 2022 (per tox screen in [employer] system), but pt says many yrs ago Information not available 04/28/2024 Do you or have you ever used any other forms of tobacco or nicotine? No Information not available 04/28/2024 What is your level of alcohol consumption? None quit 2022 Information not available 04/28/2024 Mental Status None recorded. Family History Nothing Reported Notes:Mo with DM and CHF, si ster with CHF Medical History No medical history recorded. Gynecological HistoryNo gynecological history recorded. Obstetrics History GPAL:G 0 P 0 0 0 0 Immunizations Vaccine Type Date Status Note Provider Nam e and Address Organization Details Recorded Time Td(adult) unspecified formulation 8 completed [facility] 04/25/2024 15:35:35 Pneumococcal conjugate PCV 13 0 completed [facility] 04/25/2024 15:35:47 pneumococcal polysaccharide PPV23 0 completed [facility] 04/25/2024 15:35:58 influenza, unspecified formulation 0 completed [facility] [employer] [facility] 04/25/2024 15:36:13 influenza, unspecified formulation 1 completed [facility] 04/25/2024 15:36:17 influenza, unspecified formulation 2 completed [facility] 04/25/2024 15:36:22 influenza, unspecified formulation 3 completed [facility] 04/25/2024 15:36:26 SARS-COV-2 (COVID-19) vaccine, UNSPECIFIED 1 completed [facility] 04/25/2024 15:36:43 SARS-COV-2 (COVID-19) vaccine, UNSPECIFIED 1 completed [facility] 04/25/2024 15:36:48 SARS-COV-2 (COVID-19) vaccine, UNSPECIFIED 2 completed [facility] 04/25/2024 15:36:55 Novel odosltdxh-[id number], preservative-free 0 completed [facility] 04/25/2024 15:37:15 Past Encounters Encounter ID Performer Location Encounter Start Date Encounter Closed Date Diagnosis/Indication Diagnosis SNOMED-CT Code Diagnosis ICD10 Code Diagnosis Note [id number] DEA GUTIÉRREZ [address] [place] [address] 04/25/2024 15:07:06 05/02/2024 09:07:04 Falls 892311039 R29.6 see hpi /likely from [employer] cyPT/OT eval and TXMorse 50 Bipolar disorder 3710622 4 F31.9 cont trintellix until 05/02/24con tinue latuda 120 mg qdcont trazodone 200 mg at hscont clonazepam 1 mg q 8 prn Restless legs 91987301 G 25.81 continue pramipexol e 0.25 mg Pulmonary embolism 44770 003 I26.99 cont eliquis BID Essential hypertension 28096911 I10 cont amlodipine 5 mg qdon lasix 20 mg qd Hyperlipidemia 08581870 E78.5 cont lipitor 40 mg qd Obstructiv e sleep apnea syndrome 70861225 G47.33 carrying dx Chronic back pain 056570 002 M54.9 DC summary states that she was taking percocet Q6 prnshe was discharge on scheduled QID not sure why this is- (further noted to titrate down )will change to Q6 prncont cyclobenza michelle 10 mg q8 prncont gabapentin BIDon colace and senna qd Harmful pa ttern of use of multiple substances 202055647 F19.10 Hx of alcohol and cocaine abuse Gastroesop hageal reflux disease without esophagitis 209048629 K21.9 cont omeprazole 20 mg qd Type 2 lupe betes mellitus 27789184 E11.40 not currently on po or insulinon lyrica 200 mg BIDon gabapentin 800 mg BID Asthma 892720981 J45.90 9 cont symbicort and albuterol inhaler as ordered. Asthenia 82766849 R53.1 from home with frequent fallsMorse 50maintain safety/fal l risk precaution sPT/OT eval. [id number] [place] [address] 04/28/2024 18:37:39 05/04/2024 15:33:01 Falls 018669887 R29.6 Possibly due to [employer] cy.Meds being adjusted as below.Need s PT/OT for strengthen ing, balance, gait training, safety and function.C ontinue fall precaution s.Monitor for safety. Bipolar disorder 2146529 4 F31.89 Continue trintellix 10 mg qd until 05/03, then d/cContinu e lurasidone 120 mg qd, melatonin 10 mg qhs, bupropion 100 mg qd, gabapentin 800 mg BID (primarily for pain), trazadone 200 mg qhs, and clonazepam 1 mg q 8 hrs prn.Mood good today.Madie tor mood and behaviors. Consult psych due to complex med regimen. Type 2 lupe betes mellitus without complication 953935377 E11.9 In good control on no meds.Monit or fingerstic ks prn and HgA1C q 3 months. Restless legs 87680248 G 25.81 Continue pramipexol e 0.25 mg qd.Monitor sxs. Pulmonary embolism 88313 003 I26.99 In hx.Continu e Eliquis 5 mg BID.Monito r resp status and bleeding risk. Essential hypertension 40579387 I10 Good control on amlodipine 5 mg qd and furosemide 20 mg qd.Monitor BP and labs. History of alcohol abuse 552765549 F10.10 No longer drinking.E ncourage continued abstinence . Low back pain 368955876 M54.50 Continue gabapentin 800 mg BID, Lyrica 200 mg BID, cyclobenza michelle 10 mg q 8 hrs prn, oxycodone/ APAP 5/325 mg qidPT/OT as above.Madie tor sxs. Acquired thrombocytopenia 98808378 D69.6 Has been low or borderline low for awhile.Usu ally >100, no evidence of bleeding.M onitor Uncomplica justin mild persistent asthma 483631185 J45.30 No current sxs.Contin ue Symbicort 160/4.5 mcg 2 puffs BID and albuterol MDI 2 puffs q 6 hrs prn.Monito r resp status. [id number] DEA GUTIÉRREZ [address] [place] [address] 05/01/2024 10:34:59 05/03/2024 12:29:13 Bipolar disorder 89352115 F31.9 stablecont trintellix until 05/02/24con tinue latuda 120 mg qdcont trazodone 200 mg at hscont clonazepam 1 mg q 8 prn Type 2 lupe betes mellitus 53382065 E11.40 mainly under 150 will stop qd accuchecks and change to weekly.not currently on po or insulinon lyrica 200 mg BIDon gabapentin 800 mg BID Pulmonary embolism 65899 003 I26.99 cont eliquis BIDbreathi ng easy and unlabored. Essential hypertension 65104519 I10 stablecont amlodipine 5 mg qdon lasix 20 mg qd Chronic back pain 028915 002 M54.9 05/01:ord place today for percocet titrate from scheduled to q6 prn. DC summary states that she was taking percocet Q6 prnshe was discharge on scheduled QID not sure why this is- (further noted to titrate down )will change to Q6 prncont cyclobenza michelle 10 mg q8 prncont gabapentin BIDon colace and senna qd Asthma 290892243 J45.90 9 of note symbicort has not arrived from pharmacywi ll ord Prn neb tx for sob/wheezi ng cont symbicort and albuterol inhaler as ordered. Asthenia 69401987 R53.1 from home with frequent fallsMorse 50maintain safety/fal l risk precaution scont. PT/OT Hyperlipidemia 93479544 E78.5 cont lipitor 40 mg qdmonitor for muscle pain or fatigue with statin use [id number] LUCY ORTIZ, DEA [address] [place] [address] 05/04/2024 10:35:57 05/08/2024 08:27:16 Bipolar disorder 59659922 F31.9 stablecont trintellix until 05/02/24con tinue latuda 120 mg qdcont trazodone 200 mg at hscont clonazepam 1 mg q 8 prn Type 2 lupe betes mellitus 87661712 E11.40 stableaccu check weekly on wednesdaynot currently on po or insulinon lyrica 200 mg BIDon gabapentin 800 mg BID Pulmonary embolism 63828 003 I26.99 cont eliquis BIDbreathi ng easy and unlabored. Essential hypertension 97469296 I10 BP soft today , asymptomat ic- no asscoiated sx notedcont amlodipine 5 mg qdon lasix 20 mg qd Chronic back pain 369612 002 M54.9 cont prn percocet.D C summary states that she was taking percocet Q6 prnshe was discharge on scheduled QID not sure why this is- (further noted to titrate down )will change to Q6 prncont cyclobenza michelle 10 mg q8 prncont gabapentin BIDon colace and senna qd Asthma 474239607 J45.90 9 of note symbicort has not arrived from pharmacywi ll ord Prn neb tx for sob/wheezi ng cont symbicort and albuterol inhaler as ordered. Asthenia 20464147 R53.1 from home with frequent fallsMorse 50maintain safety/fal l risk precaution scont. PT/OT Hyperlipidemia 45195823 E78.5 cont lipitor 40 mg qdmonitor for muscle pain or fatigue with statin use 700079 EPI BLUM, [employer] [place] [address] [place] [address] 05/06/2024 09:04:50 05/08/2024 08:29:49 Bipolar disorder 45655155 F31.9 stablecont trintellix until 05/02/24con tinue latuda 120 mg qdcont trazodone 200 mg at hscont clonazepam 1 mg q 8 prnf/up with pcp Type 2 lupe betes mellitus 73828914 E11.40 stablenot currently on po or insulinon lyrica 200 mg BIDon gabapentin 800 mg BIDmonitor sugars at homef/up with pcp Pulmonary embolism 74344 003 I26.99 cont eliquis BIDbreathi ng easy and unlaboredm onitor for bleeding at home on ACf/up with pcp Essential hypertension 88971358 I10 controlled cont amlodipine 5 mg qdon lasix 20 mg qdmonitor bp and labs outptf/up with pcp Chronic back pain 316533 002 M54.9 chronic issue on percocet prn at homecont percocet Q6 prn (home dose)cont cyclobenza michelle 10 mg q8 prncont gabapentin BIDon colace and senna qd Asthma 641817007 J45.90 9 well controlled , not acute exaccont symbicort and albuterol inhalerf/u p with pcp Asthenia 02246145 R53.1 from home with frequent fallsMorse 50complete d PT OTdc home with servicesf/ up with pcp Hyperlipidemia 15111585 E78.5 cont lipitor 40 mg qdlipids outptf/up with pcp Falls 536272735 R29.6 see above Restless legs 22924899 G 25.81 continue pramipexol e 0.25 mgf/up with pcp Obstructiv e sleep apnea syndrome 93989225 G47.33 carrying dxf/up with pcp Harmful pa ttern of use of multiple substances 144568802 F19.10 Hx of alcohol and cocaine abuseseek support outptf/u with pcp Gastroesop hageal reflux disease without esophagitis 082513758 K21.9 cont omeprazole 20 mg qdmonitor sx outptf/up with pcp Health Concerns Section Related Observation LastModified by Organization Detai ls LastModified Time None Recorded Concern Status LastModified by Organization Details LastModified Time None Recorded Advance Directives Directive Y: Payers Insurance Date Sequence Insurance Name Policy Number Policy Tenorio Covered Member ID Tenorio Member ID Guarantor Name 05/18/2024 1 [facility] - DOS ON OR AFTER 2022 - MEDICARE ADVANTAGE [place] (MEDICARE REPLACEMENT/AD VANTAGE - PPO) Claudette Stapleton [id number] Claudette Stapleton Notes Date Note Type Note Provider Name and Address Organization Details Recorded Time 5 text/html 63-year-old female with PMH restless leg syndrome, diabetes mellitus type 2, hypertension, hyperlipidemia, RYAN,, history of alcohol abuse and cocaine abuse, history of chronic back pain with sciatica, bradycardia, bipolar disorder Presented to ED with dizziness, falls and blurred vision and left sided chest discomfort into her shoulder from falls. Imaging negative for any acute process or abnormality. CT scan brain and CT C-spine negativeMRI brain normal and no stroke.MRI C-spine done on 04/19 that showed multilevel degenerative changes. Psychiatry was consulted due to concern for polypharmacywellbutrin discontinueTrintellix tapering to offrecommend to Continue Latuda,trazodonePatient seen for initial intake for continued care and rehab. DEA GUTIÉRREZ [address], [address], [place], [address], [facility] 05/01/2024 13:16:00 5 text/html This is a 63 yo woman who is here for rehab after an acute hospitalization for dizziness and falls. She presented to the [facility] ED on 04/21 with the above sxs as well as blurry vision and being unsteady on her feet.W/U in ED was relatively benign, but she was found to have dysmetria and she was admitted for w/u for possible cerebellar CVA.Other concern was polypharmacy.She was monitored on telemetry and had occ bradycardia, but otherwise no arrythmias.MRI brain normal and no stroke. Patient had MRI C-spine done on 04/19 that showed multilevel degenerative changes.Psych saw her for ? polypharmacy and Wellbutrin was d/c'd and trintellix was begun to be tapered. She was transferred here on 04/24.Since here she has been working with rehab and doing well. She is supervision for most activities, except lower body dressing, footwear and stairs.Tonight she is asleep, but wakes easily.She tells me she is still dizzy, doesn't think it's any better. Her PMH includes HTN, AODM-diet controlled, RYAN, RLS, hx of AUD in remission, HLD, hx of cocaine use, chronic back pain with sciatica, bipolar disorder, GERD, mild asthma, and hx of PE on Eliquis. Amarilis Sandoval MD [address] [place] [address], [address], [place], [address], [facility] 05/17/2024 12:29:55 5 text/html Claudette is a 63-year-old female seen today for acute rounding visit. Here for rehab after frequent falls secondary to dizziness in the setting of polypharmacy use.She is alert and pleasant, she has been doing well, mood is good. She has been working with therapy towards goals. BP has been stable, reports occasionally SOB, states that she has not had symbicort, denies any chest pain or other CV related sx. She is eating and drinking ok, denies any concerns with voiding. BGL has been have been stable, she is requesting accuchecks to be stop, chronic back pain currently controlled on scheduled oxycodone, she does reports no BM in 3 days, she usually have daily BM. Plan discussed. DEA GUTIÉRREZ [address], [address], [place], [address], [facility] 05/01/2024 14:21:55 5 text/html Claudette is a 63-year-old female seen today for acute rounding visit. Here for rehab after frequent falls secondary to dizziness in the setting of polypharmacy use.A+0x3 in NAD, there is no acute nursing concerns. patient is progressing towards goals for discharge Nursing and therapy noted reviewed. DEA GUTIÉRREZ [address], [address], [place], [address], [facility] 05/04/2024 16:46:03 5 text/html Claudette is a 63-year-old female seen today for a discharge summary visit. Here for rehab after frequent falls secondary to dizziness in the setting of polypharmacy use.Patient seen and evaluated today. She is planned for discharge on . She is going home where she lives with her . At this time she is medically clear for discharge home with meds, services, and narcotics. She tells me she has a nurse who comes weekly to help her with her meds and plans to continue this at [facility]. Nursing and therapy noted reviewed. XAVIER KUHN [address], [address], [place], [address], [facility] 05/06/2024 13:08:19 OBGyn Episode No OBEpisode recorded.
--- OUTSIDE RECORDS SUMMARY | 2024-08-22 09:04 | XMS_ITS | Patient Health Record ---
Author Organization [facility] Address [address] [place] [address] Care Team Providers Care Wagon Person Name Role Phone VANDANA DIETRICH Primary Care Provide r Lobo Alatorre Jr Unavailable Results Component Value Reference Range Notes Hold Lav - Possible Hematolo gy Reviewed date:09/09/2023 08:02:06 AM Interpretation: Performing Lab:[facility], [address] [place] [phone] Notes/Report: Hold Lav - Possible Hematology SEE NOTE Specimen will be held untested for 8 hours. Call Hematology if testing is desired. Prothrombin Time INR Reviewed date:09/09/2023 08:01:42 AM Interpretation: Performing Lab:[facility], [address] [place] [phone] Notes/Report: Prothrombin Time 14.3 11.1-13.3 SEC INTERNATIONAL [...] Pathology Reviewed date:09/16/2023 07:57:29 AM Interpretation: Performing Lab:[facility], [address] [place] [phone] Notes/Report: Hold Green Gel Reviewed date:09/09/2023 08:01:59 AM Interpretation: Performing Lab:[facility], [address] [place] [phone] Notes/Report: Hold Green Gel See Note Specimen held untested for 24 hours; Call to request Chemistry testing. 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, 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 (99633087) Anastomotic ulcer (K28.9) Active confirmed Problem Jejunal ulcer (82222116) 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 Encounters Encounter Location Date Provider Diagnosis [facility] [place] [address] [place], [place] [id number] 09/09/2023 Lobo Titus Jr [facility] [address] [facility] [address] [place] [address] 09/16/2023 Lobo Titus Jr Plan Of Treatment No Information Insurance Providers Payer Name Payer Address Payer Phone Subscriber Number Group Number Insured Name Patient Relationship to Insured Coverage Start Date Coverage End Date [facility] [address] Attn Claims [place] [id number] MARGOT ENGLISH Self - patient is the insured
[2024-08-22] MEDS: iohexoL 350 MG/ML 100 ML INFUS..BTL IV (09:45)
[2024-08-22 12:19] LABS: Creatinine POC 0.8 mg/dL (0.5-1.4); GFR POC > 60
== END 2024-08-22 08:53 | disposition home or self-care (01) ==
LOC: HO.CT 08:52
PROVIDERS: PCP Internal Medicine; Visit Provider Surgery
DX: R10.11 Right upper quadrant pain (principal); K92.1 Melena; K63.1 Perforation of intestine (nontraumatic)
CPT/HCPCS: 74177; 82565; Q9967

== ENCOUNTER → 2024-08-22 08:54 | Outpatient (BNV) | payer OTHER, SELFPAY | PROVIDERS: PCP Internal Medicine; Visit Provider Radiology Diagnostic Radiology | DX: R10.11 Right upper quadrant pain (principal); Z98.890 Other specified postprocedural states | CPT/HCPCS: 74177 ==

== ENCOUNTER 2024-09-01 09:07 | Outpatient (AMB) | payer OTHER, SELFPAY ==
--- NOTE | 2024-09-01 09:11 | A.OFFVIS_ITS ---
Vital Signs 09/01/24 09:21 Height 5 ft 5 in Weight 145 lb BMI 24.1 BP 125/75 Blood Pressure Location Lt brachial Position Sitting Pulse 60 Intake Visit Reasons: CT scan results, Abdominal pain, RUQ Intake Note: Patient is seen in office for CT scan results, following for abdominal pain, RUQ. Pt c/o: admits to constant pain, unable to sleep last night due to increase pain, here for results CT:08/22/24 Collar Packer Required: No Accompanied by: Family/Other Allergies cephalexin (From Keflex) Allergy (Intermediate, Verified 09/01/24 09:21) Swelling doxycycline Allergy (Intermediate, Verified 09/01/24 09:21) Hives glipizide Allergy (Intermediate, Verified 09/01/24 09:21) Rash metformin Allergy (Intermediate, Verified 09/01/24 09:21) Itching morphine Allergy (Intermediate, Verified 09/01/24 09:21) Nausea and Vomiting/ineffective ropinirole (From Requip) Allergy (Intermediate, Verified 09/01/24 09:21) Nausea and Vomiting CLARITZA Inhibitors Adverse Reaction (Intermediate, Verified 09/01/24 09:21) Cough HPI Comments Details: 64-year-old female patient with a prior history of perforated Pamela-en-Y limb following gastric bypass surgery with continued abdominal pain. She underwent further evaluation with CT abdomen and pelvis which revealed postsurgical changes from her prior stomach surgery however no acute abnormality was identified. There was no evidence of free air, abscess or fluid collections. Scans were reviewed with the patient and her . [facility] Medical History Polypharmacy Acute hypokalemia Hypomagnesemia Abdominal pain Physical deconditioning Arthritis GERD (gastroesophageal reflux disease) Depression Polysubstance abuse Osteoarthritis Sleep apnea Elevated cholesterol Bipolar 1 disorder RLS (restless legs syndrome) Asthma HTN (hypertension) Pulmonary embolism Peripheral neuropathy Diabetes Spondylolisthesis, lumbar region Surgical History Status post debridement (08/23/23) History of spinal surgery (05/31/23) History of Pamela-en-Y gastric bypass (~03/2023) Hx of exploratory laparotomy (06/03/23) H/O colonoscopy History of total right knee replacement Hx of tonsillectomy Hx of tubal ligation Hx of hysterectomy History of sleeve gastrectomy Social History Household Members: Spouse Housing: Apartment Are you a primary behavioral health care manager to a significant other at home: No Do you presently have visiting nurse or other home services: Yes Comment: aware of trip hazard Patient Tobacco Use Status: Never used Tobacco Second Hand Smoke Exposure: No service: No Review of Systems Const All systems reviewed & are unremarkable except as noted in HPI and below Denies chills, Reports malaise and Reports poor appetite GI Reports abdominal pain, Reports melena, Denies hematochezia, Denies constipation, Reports diarrhea, Denies nausea and Denies vomiting Musc Reports abnormal gait and Reports back pain Neuro Reports abnormal gait Physical Exam Vital Signs: Last Vital Signs Pulse 60 09/01/24 09:21 BP 125/75 09/01/24 09:21 BMI result Body Mass Index 24.1 Const General: no acute distress Nutritional Appearance: average body habitus Orientation/consciousness: patient oriented x3 Limitations: no limitations HEENT Head: Yes normocephalic and Yes atraumatic Resp Effort & Inspection: normal respiratory effort, no audible wheezes, no cough and no respiratory distress GI Other: Well-healed midline incision without redness or discharge. No palpable mass, no hernia. Inspection: Yes normal to inspection Palpation (GI): Soft to palpation, Tenderness to palpation present (GI) in the epigastrum; Baum's sign negative and with no rebound tenderness, no guarding and not rigid Percussion: Yes normal to percussion Auscultation: normal bowel sounds Rectal Exam - Female: deferred Skin General skin exam: no rashes or lesions noted Neuro General: patient oriented x3 Assessment & Plan Assessment & Plan (1) Abdominal pain, right upper quadrant: Code(s): R10.11 - Right upper quadrant pain Category: Medical Plan 64-year-old female patient returning for review of the recent CT abdomen and pelvis. No definite acute changes are noted on the scan although she continues to have complaints of abdominal pain. I recommended follow-up evaluation by gastroenterology (Dr. Titus). She expressed understanding and agrees with the plan. She should follow up in our office as needed. Orders: Referrals Gastroenterology Referral R10.11 - Right upper quadrant pain, R10.31 - Right lower quadrant pain Coding Level of Care Code Est Pt Level 3 (14312) Diagnoses Abdominal pain, right upper quadrant R10.11
[2024-09-01 09:21] VITALS: BP 125/75; PULSE 60; BMI 24.1
--- OUTSIDE RECORDS SUMMARY | 2024-09-01 09:24 | XMS_ITS | Patient Health Record ---
Author Organization [facility] Address [address] [place] [address] Care Team Providers Care Commercial Cleaner Name Role Phone VANDANA DIETRICH Primary Care Provide r Lobo Alatorre Jr Unavailable Results Component Value Reference Range Notes Hold Lav - Possible Hematolo gy Reviewed date:09/09/2023 08:02:06 AM Interpretation: Performing Lab:[facility], [address] [place] [phone] Notes/Report: Hold Lav - Possible Hematology SEE NOTE Specimen will be held untested for 8 hours. Call Hematology if testing is desired. Prothrombin Time INR Reviewed date:09/09/2023 08:01:42 AM Interpretation: Performing Lab:[facility], [address] [place] [phone] Notes/Report: Prothrombin Time 14.3 11.1-13.3 SEC INTERNATIONAL [...] Pathology Reviewed date:09/16/2023 07:57:29 AM Interpretation: Performing Lab:[facility], [address] [place] [phone] Notes/Report: Hold Green Gel Reviewed date:09/09/2023 08:01:59 AM Interpretation: Performing Lab:[facility], [address] [place] [phone] Notes/Report: Hold Green Gel See Note Specimen held untested for 24 hours; Call to request Chemistry testing. Reason For Referral No Information Problems Problem Type SNOMED Code ICD Code Onset Dates Problem Status W/U Status Risk Notes Problem History of gastrointestinal tract bypass (625071171) Intestinal bypass and anastomosis status (Z98.0) Active confirmed Problem Gastrojejunal ulcer without hemorrhage, 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 (49949333) Anastomotic ulcer (K28.9) Active confirmed Problem Jejunal ulcer (38215133) 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 Encounters Encounter Location Date Provider Diagnosis [facility] [place] In[place] [address] [place], [place] [phone] 09/09/2023 Lobo Titus Jr [facility] [address] [facility] [address] [place] [address] 09/16/2023 Lobo Titus Jr Plan Of Treatment No Information Insurance Providers Payer Name Payer Address Payer Phone Subscriber Number Group Number Insured Name Patient Relationship to Insured Coverage Start Date Coverage End Date [facility] [address] Attn Claims [place] [id number] MARGOT ENGLISH Self - patient is the insured
--- OUTSIDE RECORDS SUMMARY | 2024-09-01 09:24 | XMS_ITS | Encounter Summary ---
Author Organization [facility] Address [address] [place] [address] Care Team Providers Care Residential Program Worker Name Role Phone Kat Nevarez MD Primary Care Prov ider Encounter Details Date Type Department Care Team (Late st Contact Info) Description 05/07/2024 Lab Requisition [facility] - Main Lab [address] [facility] [place] [address] Cesar Albert MD [address] [place] [address] [address], [phone] Anemia, unspecified; Type 2 diabetes mellitus [...] your loved ones. For example, child care counselor or elderly care for an older adult? [...] Info) Description 09/08/2024 10:00 AM EDT Evaluation [facility] [place] [address] [facility] [address] [place] [address] Christy Ng PT 09/28/2024 11:00 AM EDT Office Visit Adult Medicine - [place] [address] [place] [address] Kat Nevarez MD [address] [place] [address] 10/10/2024 10:45 AM EDT Office Visit Endocrinology - [address] [address] Keli Brown PA [address] [place] [address] 06/22/2025 10:30 AM EDT Office Visit Bariatric Surgery - [place] [address] [facility] [address] [place] [address] Gladys Jones MD [address] [place] [phone] documented as of this encounter Procedures Procedure [...] mmol/L LAB CHEMISTRY METHOD 05/08/2024 12:15 PM [facility] Potassium 3.7 3.5 - 5.5 mmol/L LAB CHEMISTRY METHOD 05/08/2024 12:15 PM [facility] Chloride 111(H) 96 - 110 mmol/L LAB CHEMISTRY METHOD 05/08/2024 12:15 PM [facility] CO2 28 21 - 32 mmol/L LAB CHEMISTRY METHOD 05/08/2024 12:15 PM [facility] Anion Gap 7 3 - 11 LAB CHEMISTRY METHOD 05/08/2024 12:15 PM [facility] Glucose 76 70 - 100 mg/dL LAB CHEMISTRY METHOD 05/08/2024 12:15 PM [facility] BUN 9 5 - 25 mg/dL LAB CHEMISTRY METHOD 05/08/2024 12:15 PM [facility] Creatinine 0.65 0.50 - 1.10 mg/dL LAB CHEMISTRY METHOD 05/08/2024 12:15 PM [facility] eGFR 99 >=60 mL/min/1. 73m2 LAB CHEMISTRY METHOD 05/08/2024 12:15 PM EDT [facility] Comment:Calculation based on the Chronic Kidney Disease Epidemiology Collaboration (CKD-EPI) equation refit without adjustment for race. BUN/Creatinine Ratio 13.8 LAB CHEMISTRY METHOD 05/08/2024 12:15 PM EDT [facility] Calcium 8.4(L) 8.5 - 10.5 mg/dL LAB CHEMISTRY METHOD 05/08/2024 12:15 PM EDT [facility] Blood Venous blood specimen / Unknown Venipuncture / Unknown 05/08/2024 6:02 AM EDT 05/08/2024 10:44 AM EDT us Cesar Albert MD LAB BLOOD ORDERABLES Final Resul t [facility] [address] [place] [address], * (ABNORMAL) Complete blood count (05/08/2024 6:02 AM EDT) WBC 5.3 4.8 - 10.8 K/mcL LAB HEMETOLOGY METHOD 05/08/2024 11:40 AM [facility] RBC 3.40(L) 3.80 - 4.80 M/mcL LAB HEMETOLOGY METHOD 05/08/2024 11:40 AM [facility] Hemoglobin 10.9(L) 11.5 - 16.0 g/dL LAB HEMETOLOGY METHOD 05/08/2024 11:40 AM [facility] Hematocrit 32.6(L) 35.0 - 47.0 % LAB HEMETOLOGY METHOD 05/08/2024 11:40 AM [facility] MCV 96.2 79.0 - 98.0 FL LAB HEMETOLOGY METHOD 05/08/2024 11:40 AM [facility] MCH 32.2(H) 27.0 - 32.0 pcg LAB HEMETOLOGY METHOD 05/08/2024 11:40 AM EDT [facility] MCHC 33.4 32.0 - 37.0 g/dL LAB HEMETOLOGY METHOD 05/08/2024 11:40 AM EDT [facility] RDW 12.8 11.0 - 15.0 % LAB HEMETOLOGY METHOD 05/08/2024 11:40 AM EDT [facility] Platelets 86(L) 130 - 400 K/mcL LAB HEMETOLOGY METHOD 05/08/2024 11:40 AM EDT [facility] Comment:previously verified by slide MPV 13.8(H) 7.0 - 11.0 FL LAB HEMETOLOGY METHOD 05/08/2024 11:40 AM EDT [facility] NRBC 0.0 <1.0 % LAB HEMETOLOGY METHOD 05/08/2024 11:40 AM EDT [facility] NRBC Absolute 0.00 <0.10 K/mcL LAB HEMETOLOGY METHOD 05/08/2024 11:40 AM EDT [facility] Blood Venous blood specimen / Unknown Venipuncture / Unknown 05/08/2024 6:02 AM EDT 05/08/2024 10:44 AM EDT us Cesar Albert MD LAB BLOOD ORDERABLES Final Resul t [facility] [address] [place] [address], documented in this encounter Visit Diagnoses Diagnosis [...] documented as of this encounter Care Teams Residential Program Worker Relationship Specialty Start Date End Date Kat Nevarez MD [address] [place] [phone] PCP - General Internal Medicine 01/18/10 documented as of this encounter
--- OUTSIDE RECORDS SUMMARY | 2024-09-01 09:24 | XMS_ITS | Data Portability ---
Author Organization [facility], Main Office Address [address] [place] [address] [address] [place] [address] Assessment Encounter Date Assessment Date Assessment LastModified [...] cr 0.7-wbc 4.8-hgb 12.3-hct 36.7 -plt 127 [id number] Not available 05/06/2024 09:14:43 Plan of Treatment [...] Address Organization Details Recorded Time Constipati on 20136889 Active 2024 Not Available [facility] 18:38:14 Disorder in remission 178120723 Active 2024 Not Available [facility] 18:38:15 Essential hypertensi on 07698210 Active 2024 Not Available [facility] 18:39:26 Pure hyperchole sterolemia 605456912 Active 2024 Not Available [facility] 18:39:30 Tear of medial meniscus of knee 266800557 Completed 202404/30/2024 Not Available [facility] 07:54:15 Uncomplica justin moderate persistent asthma 226750106 Active 2024 Not Available [facility] 18:41:16 Central sleep apnea syndrome 46564446 Active 2024 Not Available [facility] 5 18:41:17 Osteoarthr itis 379613760 Active 2024 Not Available [facility] 18:42:22 Pain of hip region 82680469 Active 2024 Not Available [facility] 18:43:03 Localized adiposity 013319132 Active 2024 Not Available [facility] 18:43:17 Mood disorder 18664546 Active 2024 Not Available [facility] 5 16:00:43 Neurologic al symptom 062986902 Active 2024 Not Available [facility] 5 18:44:52 Bipolar affective disorder, current episode mixed 273523548 Active 2024 Not Available [facility] 5 16:00:41 Anemia 709797762 Active 2024 Not Available [facility] 18:46:20 Chronic obstructiv e pulmonary disease 91321999 Active 2024 Not Available [facility] 16:00:47 Disease 03880475 Active 2024 Not Available [facility] 5 18:47:24 Headache 15634962 Active 2024 Not Available [facility] 5 18:48:34 Chronic pain 46360098 Active 2024 Not Available [facility] 5 18:49:10 Gastroesop hageal reflux disease without esophagiti s 620385108 Active 2024 Not Available [facility] 5 10:40:32 Dizziness and giddiness 695380206 Active 2024 Not Available [facility] 5 10:41:09 Fall Active 2024 Not Available [facility] 5 15:42:00 Anxiety disorder 316940885 Active 2024 Not Available [facility] 5 10:42:22 Restless legs 36830683 Active 2024 Not Available [facility] 5 10:42:58 Pulmonary embolism 38304217 Active 2024 Not Available [facility] 5 10:43:36 Falls 747597464 Active 2024 Not Available [facility] 5 10:44:12 Muscle weakness 20707838 Active 2024 Not Available [facility] 5 16:01:26 Unsteady when standing 699853258 Active 2024 Not Available [facility] 5 16:01:05 Disorder of nervous system due to type 2 diabetes mellitus 581924937 Active 2024 Not Available [facility] 5 05:43:30 Depressive disorder 82497597 Active 2024 Not Available [facility] 5 05:42:19 Bipolar disorder 42328264 Active 2024 DEA GUTIÉRREZ [address] , [address], [place], [address] , [facility] 5 19:11:55 Hyperlipid emia 62017850 Active 2024 DEA GUTIÉRREZ [address] , [address], [place], [address] , [facility] 5 14:00:38 Asthenia 72276971 Active 2024 DEA GUTIÉRREZ [address] , [address], [place], [address] , [facility] 5 14:00:39 Asthma 480954507 Active 2024 DEA GUTIÉRREZ [address], [address], [place], [address] , [facility] 5 14:00:42 Harmful pattern of use of multiple substances 026481030 Active 2024 COLLEEN GUTIÉRREZP [address], [address], [place], [address] , [facility] 5 14:00:46 Chronic back pain 325781314 Active [address], [address], [place], [address] , [facility] 5 14:00:48 Type 2 diabetes mellitus 26959618 Active [address], [address], [place], [address] , [facility] 5 14:00:54 Problem Notes None recorded. Medical Equipment None Reported. Allergies Allergen ID Allergen Name Allergen Category Reaction Reaction Severity Criticality Documentation Date Start Date Code Code System Note Provider Name and Address Organization Details Recorded Time 52233 Product containin g angiotens in-conver ting enzyme inhibitor (product) medicatio n cough Not available Not available 04/24/20242024 44685 009 SNOMED Not Available [facility] 18:32:56 34291 cephalexi n medicatio n swelling Not available Not available 04/24/20242024 2231 RxNorm Not Available [facility] 18:33:56 37371 glipizide medicatio n Not available Not available Not available 04/24/20242024 4821 RxNorm Not Available [facility] 18:34:33 66750 glucagon (rDNA) medicatio n Not available Not available Not available 04/24/20242024 27330 6 RxNorm Not Available [facility] 18:35:11 75357 ibuprofen medicatio n rash Not available Not available 04/24/20242024 5640 RxNorm Not Available [facility] 18:35:48 36149 metformin medicatio n itching Not available Not available 04/24/20242024 6809 RxNorm Not Available [facility] 18:36:25 02942 ropinirol e medicatio n vomiting Not available Not available 04/24/20242024 51373 RxNorm gener ic only Amarilis Sandoval MD [address], [address], [place], [address], [facility] 19:06:11 Medications Name Sig Start Date [...] by mouth at bedtime for Depressio n BA=950rj 2024 active Not Available Not Available Not [...] one time a day for supplemen t EW=7437 units 2024 active Not Available Not Available [...] Available Not Available Not Avai lable Acid Bad Cloth Checker (omeprazole ) 20 mg capsule,del ayed release [...] 98 % 132/77 mm[Hg] DEA GUTIÉRREZ [address], [facility] [address], [place], [address] , [facility] 13:15:27 Date Recorded Body weight Body mass index (BMI) Body height Heart rate Respiratory rate Body temperature Oxygen saturation Oxygen saturation in Arterial blood by Pulse oximetry Systolic And Diastolic Provider Name and Address Organization Details Last Updated DateTime 5 39029.0 8 g 26.9 kg/m2 157.48 cm 60 /min 17 /min 96.9 [degF] 97 % 97 % 125/85 mm[Hg] Amarilis Sandoval MD [address], [address], [place], [address] , [facility] 18:44:52 Date Recorded Body height Heart rate Respiratory rate Body temperature Oxygen saturation Oxygen saturation in Arterial blood by Pulse oximetry Systolic And Diastolic Provider Name and Address Organization Details Last Updated DateTime 5 157.48 cm 60 /min 20 /min 97.7 [degF] 98 % 98 % 112/67 mm[Hg] DEA GUTIÉRREZ [address], [address], [place], [address], [facility] 12:30:04 Date Recorded Body height Body temperature Respiratory rate Heart rate Oxygen saturation Oxygen saturation in Arterial blood by Pulse oximetry Systolic And Diastolic Provider Name and Address Organization Details Last Updated DateTime 157.48 cm 97.8 [degF] 20 /min 60 /min 97 % 97 % 99/65 mm[Hg] DEA GUTIÉRREZ [address], [address], [place], [address], [facility] 16:38:14 Social History Question Answer Notes LastModified by [employer] Details LastModified Time Tobacco Smoking Status Never Smoker Amarilis Sandoval MD [address], [address], [place], [address], [facility] 04/28/2024 19:31:55 Do You Have An Advance Directive? Yes Information not available 04/28/2024 What Is Your Code Status? Full Code Information not available 04/28/2024 Where Do You Live? Apartment She Tells Me Alone, But Chart Says With Ex-husban d Information not available 04/28/2024 Legal Guardian? No Informati on not available 04/28/2024 Do You Have A Medical Power Of Storeperson? Yes Information not available 04/28/2024 What Was [...] Functional Status Question Answer Note LastModified by [employer] Details LastModified Time Do you use any illicit or recreational drugs? No Hx of cocaine and crack, last in 2022 (per tox screen in [facility] system), but pt says many yrs ago [...] Recorded Time Td(adult) unspecified formulation 8 completed [facility] 04/25/2024 15:35:35 Pneumococcal conjugate PCV 13 0 completed [facility] 04/25/2024 15:35:47 pneumococcal polysaccharide PPV23 0 completed [facility] 04/25/2024 15:35:58 influenza, unspecified formulation 0 completed [facility] [employer] [facility] 04/25/2024 15:36:13 influenza, unspecified formulation 1 completed [facility] 04/25/2024 15:36:17 influenza, unspecified formulation 2 completed [facility] 04/25/2024 15:36:22 influenza, unspecified formulation 3 completed [facility] 04/25/2024 15:36:26 SARS-COV-2 (COVID-19) vaccine, UNSPECIFIED 1 completed [facility] 04/25/2024 15:36:43 SARS-COV-2 (COVID-19) vaccine, UNSPECIFIED 1 completed [facility] 04/25/2024 15:36:48 SARS-COV-2 (COVID-19) vaccine, UNSPECIFIED 2 completed [facility] 04/25/2024 15:36:55 Novel [id number], preservative-free 0 completed [facility] [facility] 04/25/2024 15:37:15 Past Encounters Encounter ID Performer Location Encounter Start Date Encounter Closed Date Diagnosis/Indication Diagnosis SNOMED-CT Code Diagnosis ICD10 Code Diagnosis Note [id number] DEA GUTI[address]RREZ [address] [place] [address] 04/25/2024 15:07:06 05/02/2024 09:07:04 Falls 479938185 R29.6 see hpi /likely from [employer] cyPT/OT eval and TXMorse 50 Bipolar disorder 9557687 4 F31.9 cont trintellix until 05/02/24con tinue latuda 120 mg qdcont trazodone 200 mg at hscont clonazepam 1 mg q 8 prn Restless legs 49405380 G 25.81 continue pramipexol e 0.25 mg Pulmonary embolism 38040 003 I26.99 cont eliquis BID Essential hypertension 90497340 I10 cont amlodipine 5 mg qdon lasix 20 mg qd Hyperlipidemia 81088212 E78.5 cont lipitor 40 mg qd Obstructiv e sleep apnea syndrome 77392962 G47.33 carrying dx Chronic back pain 428097 002 M54.9 DC summary states that she was taking percocet Q6 prnshe was discharge on scheduled QID not sure why this is- (further noted to titrate down )will change to Q6 prncont cyclobenza michelle 10 mg q8 prncont gabapentin BIDon colace and senna qd Harmful pa ttern of use of multiple substances 157651433 F19.10 Hx of alcohol and cocaine abuse Gastroesop hageal reflux disease without esophagitis 964508936 K21.9 cont omeprazole 20 mg qd Type 2 lupe betes mellitus 08888178 E11.40 not currently on po or insulinon lyrica 200 mg BIDon gabapentin 800 mg BID Asthma 035300773 J45.90 9 cont symbicort and albuterol inhaler as ordered. Asthenia 17163070 R53.1 from home with frequent fallsMorse 50maintain safety/fal l risk precaution sPT/OT eval. [id number] [place] [address] 04/28/2024 18:37:39 05/04/2024 15:33:01 Falls 728268221 R29.6 Possibly due to [employer] cy.Meds being adjusted as below.Need s PT/OT for strengthen ing, balance, gait training, safety and function.C ontinue fall precaution s.Monitor for safety. Bipolar disorder 3912146 4 F31.89 Continue trintellix 10 mg qd until 05/03, then d/cContinu e lurasidone 120 mg qd, melatonin 10 mg qhs, bupropion 100 mg qd, gabapentin 800 mg BID (primarily for pain), trazadone 200 mg qhs, and clonazepam 1 mg q 8 hrs prn.Mood good today.Madie tor mood and behaviors. Consult psych due to complex med regimen. Type 2 lupe betes mellitus without complication 535660455 E11.9 In good control on no meds.Monit or fingerstic ks prn and HgA1C q 3 months. Restless legs 72407367 G 25.81 Continue pramipexol e 0.25 mg qd.Monitor sxs. Pulmonary embolism 65085 003 I26.99 In hx.Continu e Eliquis 5 mg BID.Monito r resp status and bleeding risk. Essential hypertension 63169933 I10 Good control on amlodipine 5 mg qd and furosemide 20 mg qd.Monitor BP and labs. History of alcohol abuse 654246878 F10.10 No longer drinking.E ncourage continued abstinence . Low back pain 518291232 M54.50 Continue gabapentin 800 mg BID, Lyrica 200 mg BID, cyclobenza michelle 10 mg q 8 hrs prn, oxycodone/ APAP 5/325 mg qidPT/OT as above.Madie tor sxs. Acquired thrombocytopenia 02061824 D69.6 Has been low or borderline low for awhile.Usu ally >100, no evidence of bleeding.M onitor Uncomplica justin mild persistent asthma 359634612 J45.30 No current sxs.Contin ue Symbicort 160/4.5 mcg 2 puffs BID and albuterol MDI 2 puffs q 6 hrs prn.Monito r resp status. [id number] DEA GUTIÉRREZ [address] [place] [address] 05/01/2024 10:34:59 05/03/2024 12:29:13 Bipolar disorder 06680707 F31.9 stablecont trintellix until 05/02/24con tinue latuda 120 mg qdcont trazodone 200 mg at hscont clonazepam 1 mg q 8 prn Type 2 lupe betes mellitus 75595597 E11.40 mainly under 150 will stop qd accuchecks and change to weekly.not currently on po or insulinon lyrica 200 mg BIDon gabapentin 800 mg BID Pulmonary embolism 27698 003 I26.99 cont eliquis BIDbreathi ng easy and unlabored. Essential hypertension 13525452 I10 stablecont amlodipine 5 mg qdon lasix 20 mg qd Chronic back pain 906851 002 M54.9 05/01:ord place today for percocet titrate from scheduled to q6 prn. DC summary states that she was taking percocet Q6 prnshe was discharge on scheduled QID not sure why this is- (further noted to titrate down )will change to Q6 prncont cyclobenza michelle 10 mg q8 prncont gabapentin BIDon colace and senna qd Asthma 169994371 J45.90 9 of note symbicort has not arrived from pharmacywi ll ord Prn neb tx for sob/wheezi ng cont symbicort and albuterol inhaler as ordered. Asthenia 46567144 R53.1 from home with frequent fallsMorse 50maintain safety/fal l risk precaution scont. PT/OT Hyperlipidemia 75675820 E78.5 cont lipitor 40 mg qdmonitor for muscle pain or fatigue with statin use [id number] LUCY ORTIZ, DEA [address] [place] [address] 05/04/2024 10:35:57 05/08/2024 08:27:16 Bipolar disorder 92972840 F31.9 stablecont trintellix until 05/02/24con tinue latuda 120 mg qdcont trazodone 200 mg at hscont clonazepam 1 mg q 8 prn Type 2 lupe betes mellitus 88707075 E11.40 stableaccu check weekly on wednesdaynot currently on po or insulinon lyrica 200 mg BIDon gabapentin 800 mg BID Pulmonary embolism 79097 003 I26.99 cont eliquis BIDbreathi ng easy and unlabored. Essential hypertension 86072288 I10 BP soft today , asymptomat ic- no asscoiated sx notedcont amlodipine 5 mg qdon lasix 20 mg qd Chronic back pain 191544 002 M54.9 cont prn percocet.D C summary states that she was taking percocet Q6 prnshe was discharge on scheduled QID not sure why this is- (further noted to titrate down )will change to Q6 prncont cyclobenza michelle 10 mg q8 prncont gabapentin BIDon colace and senna qd Asthma 541384673 J45.90 9 of note symbicort has not arrived from pharmacywi ll ord Prn neb tx for sob/wheezi ng cont symbicort and albuterol inhaler as ordered. Asthenia 54010150 R53.1 from home with frequent fallsMorse 50maintain safety/fal l risk precaution scont. PT/OT Hyperlipidemia 99025681 E78.5 cont lipitor 40 mg qdmonitor for muscle pain or fatigue with statin use [id number] EPI BL[facility], [facility] [place] [address] [place] [address] 05/06/2024 09:04:50 05/08/2024 08:29:49 Bipolar disorder 02533502 F31.9 stablecont trintellix until 05/02/24con tinue latuda 120 mg qdcont trazodone 200 mg at hscont clonazepam 1 mg q 8 prnf/up with pcp Type 2 lupe betes mellitus 09848963 E11.40 stablenot currently on po or insulinon lyrica 200 mg BIDon gabapentin 800 mg BIDmonitor sugars at homef/up with pcp Pulmonary embolism 19276 003 I26.99 cont eliquis BIDbreathi ng easy and unlaboredm onitor for bleeding at home on ACf/up with pcp Essential hypertension 33097878 I10 controlled cont amlodipine 5 mg qdon lasix 20 mg qdmonitor bp and labs outptf/up with pcp Chronic back pain 482113 002 M54.9 chronic issue on percocet prn at homecont percocet Q6 prn (home dose)cont cyclobenza michelle 10 mg q8 prncont gabapentin BIDon colace and senna qd Asthma 694002945 J45.90 9 well controlled , not acute exaccont symbicort and albuterol inhalerf/u p with pcp Asthenia 11163438 R53.1 from home with frequent fallsMorse 50complete d PT OTdc home with servicesf/ up with pcp Hyperlipidemia 55043312 E78.5 cont lipitor 40 mg qdlipids outptf/up with pcp Falls 084761394 R29.6 see above Restless legs 06232399 G 25.81 continue pramipexol e 0.25 mgf/up with pcp Obstructiv e sleep apnea syndrome 22625013 G47.33 carrying dxf/up with pcp Harmful pa ttern of use of multiple substances 460274315 F19.10 Hx of alcohol and cocaine abuseseek support outptf/u with pcp Gastroesop hageal reflux disease without esophagitis 299172829 K21.9 cont omeprazole 20 mg qdmonitor sx outptf/up with pcp Health Concerns Section Related Observation LastModified by Organization Detai ls LastModified Time None Recorded Concern Status LastModified by Organization Details LastModified Time None Recorded Advance Directives Directive Y: Payers Insurance Date Sequence Insurance Name Policy Number Policy Tenorio Covered Member ID Tenorio Member ID Guarantor Name 05/18/2024 1 [facility] - DOS ON OR AFTER 2022 - MEDICARE ADVANTAGE [place] (MEDICARE REPLACEMENT/AD VANTAGE - PPO) Claudette Stapleton [id number] Claudette Stapleton Notes Date Note Type Note Provider Name and Address Organization Details Recorded Time 5 text/html ROS as noted in the HPI 63-year-old female with PMH restless leg syndrome, [...] continued care and rehab. DEA GUTIÉRREZ [address], [address], [place], [address], [facility] 05/01/2024 13:16:00 5 text/html This is a 63 yo woman who is here for rehab after an acute hospitalization for dizziness and falls. She presented to the [facility] ED on 04/21 with the above sxs [...] of PE on Eliquis. Amarilis Sandoval MD [address], [address], [place], [address], [facility] 05/17/2024 12:29:55 5 text/html ROS as noted in the HPI Claudette is a 63-year-old female seen today [...] daily BM. Plan discussed. DEA GUTIÉRREZ [address], [address], [place], [address], [facility] 05/01/2024 14:21:55 5 text/html ROS as noted in the HPI Claudette is a 63-year-old female seen today for acute rounding visit. Here for rehab after frequent falls secondary to dizziness in the setting of polypharmacy use.A+0x3 in NAD, there is no acute nursing concerns. patient is progressing towards goals for discharge Nursing and therapy noted reviewed. DEA GUTIÉRREZ [address], [address], [place], [address], [facility] 05/04/2024 16:46:03 5 text/html ROS as noted in the HPI Claudette is a 63-year-old female seen today for a discharge summary visit. Here for rehab after frequent falls secondary to dizziness in the setting of polypharmacy use.Patient seen and evaluated today. She is planned for discharge on Wednday. She is going home where she lives with her . At this time she is medically clear for discharge home with meds, services, and narcotics. She tells me she has a nurse who comes weekly to help her with her meds and plans to continue this at ma. Nursing and therapy noted reviewed. XAVIER KUHN [address], [address], [place], [address], [facility] 05/06/2024 13:08:19 OBGyn Episode No OBEpisode recorded.
--- OUTSIDE RECORDS SUMMARY | 2024-09-01 09:24 | XMS_ITS ---
Author Name [facility] Organization Unknown Encounters Encounter Type Encounter Reason Primary Diagnosis Location Date Ambulatory [facility] 07/11/2024 Ambulatory [facility] 07/11/2024
== END 2024-09-01 09:40 | disposition home or self-care (01) ==
LOC: HO.HGS 09:08
PROVIDERS: PCP Internal Medicine; Visit Provider Surgery
DX: R10.11 Right upper quadrant pain (principal)
CPT/HCPCS: 99213

== ENCOUNTER → 2024-09-01 09:07 | Outpatient (BNVA) | payer OTHER, SELFPAY | PROVIDERS: PCP Internal Medicine; Visit Provider Surgery | DX: R10.11 Right upper quadrant pain (principal) | CPT/HCPCS: 99212 ==

== ENCOUNTER 2024-11-03 11:38 | Outpatient (AMB) | payer OTHER, SELFPAY ==
--- OUTSIDE RECORDS SUMMARY | 2023-09-09 12:00 | XMS_ITS ---
Author Organization [facility] Address [address] [address] Care Team Providers Care Assistant Program Director Name Role Phone VANDANA DIETRICH Primary Care Provide r Unavailable Lobo Titus Jr Unavailable Danny Hernandez Unavailable Unavailable REASON FOR VISIT abd pain Encounters Encounter Location Date Provider Diagnosis [facility] Inpatient [address] [place] [id number] 09/09/2023 Lobo Titus Jr Plan Of Treatment Next Appt Details Provider Name:Lobo talbert Jr, 02/12/2025 10:20:00 AM, [facility], [address] [facility], [place], [address], Progress Notes * ALEXIS QUINTEROADOB: (64 yo F)Acc No.[id number]:09/09/2023 EGD/MAC Patient: Lc MARGOT FORTE Provider: Debra Titus MD :1960 A ge:63 Y S ex:Female Date:09/09/2023 Address:[address] [place] [address] [address], [id number] Pcp:VANDANA [place] Subjective: * Chief Complaints: * 1 . Abd pain. * Medical History: Objective: * Vitals: Assessment: Plan: * Treatment: * * The named appointment provid er may or may not be the originator of this progress note, and it is not deemed complete until electronically signed by the appointment provider. Sign off status: Pending * Provider: Debra Titus MD Date: 09/09/2023 Generated for Mimai alyssa/Son/eTransmitting on: 0 11/03/2024 01:36 PM EDT
--- OUTSIDE RECORDS SUMMARY | 2024-10-04 05:20 | XMS_ITS ---
Author Organization [facility] Address [address] [place] [address] Care Team Providers Care [place] Justice Name Role Phone VANDANA DIETRICH Primary Care Provide r Unavailable Tacho Martel, Lobo Unavailable [phone] Danny Hernandez Unavailable Unavailable REASON FOR VISIT rt lower quadrant pain Encounters Encounter Location Date Provider Diagnosis [facility] [address] [place] [address] 10/04/2024 Lobo Titus Jr Plan Of Treatment Next Appt Details Provider Name:Lobo talbert Jr, 02/12/2025 10:20:00 AM, [address], [address], [place], [address], Progress Notes * ESTEFANIA QUINTEROB: (64 yo F)Acc No.[id number]:10/04/2024 Progress Notes Patient: Lc DESHPANDEDENISEALEXISA Provider: Debra Titus MD :1960 A ge:64 Y S ex:Female Date:10/04/2024 Address:[address] [place] [address] [address], [place], [place] Pcp:VANDANA [place] Subjective: * Chief Complaints: * 1 . Rt lower quadrant pain. * Medical History: Objective: * Vitals: Assessment: Plan: * Treatment: * * The named appointment provid er may or may not be the originator of this progress note, and it is not deemed complete until electronically signed by the appointment provider. Sign off status: Pending * Provider: Debra Titus MD Date: 0 10/04/2024 Generated for Macario shah/Son/Goldie on: 0 11/03/2024 01:35 PM EDT
--- OUTSIDE RECORDS SUMMARY | 2024-11-01 18:22 | XMS_ITS | Encounter Summary ---
Author Organization [facility] Address [address] [place] [phone] Care Team Providers Care Cardiac Cath Lab Manager Name Role Phone Kat Nevarez MD Primary Care Prov ider Reason for Referral * Consultation (Routine) - Authorized Specialty Diagnoses / Procedures Referred By Jeana samuels Referred To Contact Gastroenterology Diagnoses Chronic abdominal pain Kush Vickers MD [address] [place] [phone] Phone: tel: fax: Gastroenterology [facility] [address] [address] Phone: tel: fax: Referral ID Status Reason Start Date Expiration Date Visits Requested Visits Authorized [id number] Authorized Specialty Services Required 11/02/2024 11/02/2025 1 1 Reason for Visit * Reason Comments Abdominal Pain Back Pain Encounter Details Date Type Department Care Team ([facility] st Contact Info) Description 11/01/2024 6:22 PM EDT - 11/02/2024 1:51 AM EDT Emergency [facility] Emergency [address] [place] [phone] Kush Vickers MD [address] [place] [phone] Lower abdominal pain (Primary Dx) Discharge Disposition: Home or Self Care Social [...] care for your loved ones. For example, exceptional children's teacher or elderly care for an older adult? [...] Sign Reading Time Taken Comments Blood Pressure 102/70 11/01/2024 3:51 PM EDT Pulse 100 11/01/2024 3:51 PM EDT Temperature 36.7 C (98.1 F) 11/01/2024 3:51 PM EDT Respiratory Rate 16 11/01/2024 3:51 PM EDT Oxygen Saturation 98% 11/01/2024 3:51 PM EDT Inhaled Oxygen Concentration - - Weight 68 kg (150 lb) 11/01/2024 3:51 PM EDT Height 165.1 cm (5' 5 ) 11/01/2024 3:51 PM EDT Body Mass Index 24.96 11/01/2024 3:51 PM EDT documented in this encounter Functional Status * Are you deaf or do you have serious difficulty hearing? Answer Date of Assessment Author No 07/05/2024 7:37 PM EDT Evelyn Weinberg RN * Are you blind or do you have serious difficulty seeing, even when wearing glasses? Answer Date of Assessment Author No 07/05/2024 7:37 PM EDT Evelyn Weinberg RN * Do you have serious difficulty walking or climbing stairs? Answer Date of Assessment Author No 07/05/2024 7:37 PM EDT Evelyn Weinberg RN * Do you have serious difficulty dressing or bathing? Answer Date of Assessment Author Yes 05/22/2024 10:48 PM EDT Rebecca Borrego RN * Because of a physical, mental, or emotional condition, do you have serious difficulty doing errandsalone such as visiting the doctor? Answer Date of Assessment Author No 07/05/2024 7:37 PM EDT Evelyn Weinberg RN documented as of this encounter Mental Status * Because of a physical, mental, or emotional condition, do you have serious difficulty concentrating, remembering, or making decisions? (5 years old or older) Answer Entry Date Author No 07/05/2024 7:37 PM EDT Evelyn Weinberg RN documented in this encounter Discharge Instructions * Discharge Instructions* Kush Vickers MD - 11/02/2024 12:[address] scan did not show any acute findings to explain your pain. Your urine sample did not show evidence of infection. You can take Tylenol 1000 mg every 6 hours as needed for pain. You can take Zofran as needed for nausea/vomiting. Stay well-hydrated drink plenty of fluids. If you continue to have abdominal pain, you can make an appointment to follow-up with gastroenterology. Return with any new or worsening symptoms. * Attachments The following attachments cannot be sent through Care Everywhere. * Abdominal Pain (Finnish) documented in this encounter Medications at Time of Discharge acetaminophen (TYLENOL 8 HOUR) 650 mg 8 hr tablet Take 1 tablet (650 mg total) by mouth every 8 (eight) hours if needed for headaches. for pain 30 tablet 2 09/15/2024 acetaminophen (TYLENOL) 500 mg tablet Take 2 tablets (1,000 mg total) by mouth every 6 (six) hours if needed for mild pain for up to 10 days. 30 tablet 11/02/2024 5 albuterol HFA (PROAIR HFA ; PROVENTIL HFA ; VENTOLIN HFA) 90 mcg/actuation inhaler Inhale 2 Puffs into the lungs every 6 hours as needed for Cough, Wheezing or Shortness of Breath. 03/29/2023 atorvastatin (LIPITOR) 40 mg tablet Take 1 tablet (40 mg total) by mouth 1 (one) time each day. 90 each 1 07/21/2024 5 blood-glucose,recei shreya,cont (FreeStyle Kalyan 3 S[place]uma) miscIndications:Typ e 2 diabetes mellitus with diabetic peripheral angiopathy without gangrene, with long-term current use of insulin [place] [place], [facility] V28) Use as directed 1 each 06/13/2024 budesonide-formoter oL (SYMBICORT) 160-4.5 mcg/actuation inhaler Inhale 2 puffs by mouth 2 (two) times a day. Rinse mouth with water after use to reduce aftertaste and incidence of candidiasis. Do not swallow. 10.2 g 5 06/13/2024 buPROPion SR (WELLBUTRIN SR) 100 mg 12 hr tablet TAKE 1 TABLET BY MOUTH EVERY MORNING 90 tablet 1 07/26/2024 cholecalciferol (VITAMIN D-3) 50 mcg (2,000 unit) capsule Take 1 capsule (2,000 Units total) by mouth 1 (one) time each day. 90 capsule 10/18/2024 clonazePAM (KlonoPIN) 1 mg tablet Take 1 tablet (1 mg total) by mouth 3 (three) times a day if needed for anxiety. for anxiety 84 tablet 2 07/21/2024 cyanocobalamin (VITAMIN B-12) 100 mcg tablet Take 0.5 tablets (50 mcg total) by mouth 1 (one) time each day. 45 tablet 1 10/18/2024 cyclobenzaprine (FLEXERIL) 10 mg tabletIndications:B ipolar 1 disorder, mixed ([facility] V24, [facility] V28) Take 1 tablet (10 mg total) by mouth at bedtime as needed for muscle spasms. 30 each 2 10/26/2024 dextrose (Dex4 Glucose) 15 gram/33 gram gel in packet Use as directed for Hypoglycemia. 33 g 5 03/21/2024 docusate sodium (COLACE) 100 mg capsule TAKE 1 CAPSULE BY MOUTH TWICE DAILY 180 capsule 07/06/2024 FREESTYLE LANCETS MISC To test sugars bid 10/01/2021 FreeStyle Kalyan 3 Sensor deviceIndications:T ype 2 diabetes mellitus with diabetic neuropathy, with long-term current use of insulin ([facility] [place], [facility] V28) Box = Kit = EACHANGE 1 DEVICE EVERY 14 DAYS 6 each 1 03/09/2024 furosemide (LASIX) 40 mg tablet Take 0.5 tablets (20 mg total) by mouth 1 (one) time each day. 45 tablet 1 06/21/2024 glucose 4 gram chewable tablet Chew 4 tablets (16 g total) if needed for low blood sugar. 50 tablet 03/12/2024 6 lurasidone (LATUDA) 120 mg tablet TAKE 1 TABLET(120 MG) BY MOUTH 1 TIME EACH DAY 90 tablet 1 09/15/2024 melatonin-lemon balm leaf extr 10-1 mg tablet TAKE 1 TABLET BY MOUTH DAILY AT BEDTIME 90 tablet 1 06/27/2024 melatonin-lemon balm leaf extr 10-1 mg tablet Take 1 tablet by mouth at bedtime. at bedtime 03/16/2024 omeprazole (PriLOSEC) [address] capsule TAKE 1 CAPSULE BY MOUTH DAILY 90 capsule 1 06/15/2024 ondansetron ODT (ZOFRAN-ODT) 4 mg disintegrating tablet Let 1 tablet dissolve under the tongue three times daily as needed for nausea or vomiting. 10 tablet 07/06/2024 ondansetron ODT (ZOFRAN-ODT) 4 mg disintegrating tabletIndications:Antony gomeser abdominal pain Let 1 tablet dissolve under the tongue three times daily as needed for nausea or vomiting. 10 tablet 11/02/2024 5 oxyCODONE-acetamino phen (PERCOCET) 5-325 mg per tablet Take 1 tablet by mouth 4 (four) times a day for 28 days. Max Daily Amount: 4 tablets 112 tablet 10/06/2024 5 pramipexole (MIRAPEX) 0.25 mg tablet TAKE 1 TABLET BY MOUTH DAILY 90 tablet 1 10/11/2024 pregabalin (LYRICA) 200 mg capsuleIndications: Bipolar 1 disorder, mixed (CMS/HCC V24, CMS/HCC V28) Take 1 capsule (200 mg total) by mouth 2 (two) times a day. 180 capsule 07/21/2024 senna 8.6 mg tablet TAKE 1 TABLET BY MOUTH EVERY DAY 90 tablet 1 08/08/2024 topiramate (TOPAMAX) 100 mg tablet Take 1 tablet (100 mg total) by mouth 2 (two) times a day. 180 tablet 07/21/2024 traZODone (DESYREL) 100 mg tablet Take 3 tablets (300 mg total) by mouth at bedtime. 90 tablet 2 10/18/2024 documented as of this encounter Ordered Prescriptions Prescription Sig Dispense Quantity Refills Last Filled Start Date End Date acetaminophen (TYLENOL) 500 mg tablet Take 2 tablets (1,000 mg total) by mouth every 6 (six) hours if needed for mild pain for up to 10 days. 30 tablet 11/02/2024 5 ondansetron ODT (ZOFRAN-ODT) 4 mg disintegrating tabletIndications:Lo wer abdominal pain Let 1 tablet dissolve under the tongue three times daily as needed for nausea or vomiting. 10 tablet 11/02/2024 5 documented in this encounter Discharge Disposition Disposition Code Departure Means Destination Comment s Home or Self Care documented in this encounter Progress Notes * Karen Westbrook RN - 11/01/2024 3:47 PM EDT Pt brought in by ems from home with c/o abd pain and low back pain x 10 days, + n/v . Has appt on Wednesday to see pcp * Kush Vickers MD - 11/01/2024 3:34 PM EDT HPI Chief Complaint Patient presents with Abdominal Pain Back Pain Patient is a 64-year-old female with a history of COPD, bipolar disorder, chronic pain, GERD, hypertension, hyperlipidemia and surgical history of sleeve gastrectomy and hysterectomy who is presenting to the ER with lower abdominal pain. Patient states she has had significant lower abdominal pain and associated nausea and vomiting for the last 10 days. No fevers. Endorses diarrhea that is chalky like in appearance. No blood in the stool. No dysuria, hematuria. [place] Coma Scale Score: 15 Patient History Past Medical History: Diagnosis Date Anemia Bipolar 1 disorder, mixed (CMS/HCC V24, CMS/HCC V28) 05/23/2014 DX:Bipolar 1 disorder, mixed (HCC) Chronic pain COPD (chronic obstructive pulmonary disease) (CMS/HCC V24, CMS/HCC V28) Diabetes mellitus (CMS/HCC V24, CMS/HCC V28) GERD (gastroesophageal reflux disease) Headache History of [...] TONSILLECTOMY TOTAL KNEE ARTHROPLASTY Right 07/2019 PROCEDURE: NE ARTHRP KNE CONDYLE&PLATU MEDIAL&LAT COMPARTMENTS TUBAL LIGATION [...] ago Review of Systems Review of Systems Constitutional: Negative for chills and fever. Respiratory: Negative for cough and shortness of breath. Cardiovascular: Negative for chest pain. Gastrointestinal: Positive for abdominal pain, diarrhea, nausea and vomiting. Negative for anal bleeding, blood in stool and constipation. Genitourinary: Negative for dysuria, flank pain and hematuria. Musculoskeletal: Negative for back pain and neck pain. Physical Exam ED Triage Vitals [11/01/24 1551] Temp Heart Rate Resp BP 36.7 ??C (98.1 ??F) 100 16 102/70 SpO2 Temp Source Heart Rate Source Patient Position 98 % Oral -- -- BP Location FiO2 (%) -- -- Physical Exam Vitals and nursing note reviewed. Constitutional: General: She is in acute distress. Appearance: She is obese. She is not ill-appearing or toxic-appearing. HENT: Head: Normocephalic and atraumatic. Mouth/Throat: Mouth: Mucous membranes are moist. Cardiovascular: Rate and Rhythm: Normal rate and regular rhythm. Heart sounds: Normal heart sounds. Pulmonary: Effort: Pulmonary effort is normal. Breath sounds: Normal breath sounds. No wheezing, rhonchi or rales. Abdominal: General: Abdomen is flat. Bowel sounds are normal. There is no distension. Palpations: There is no hepatomegaly or splenomegaly. Tenderness: There is abdominal tenderness in the right lower quadrant, suprapubic area and left lower quadrant. There is no right CVA tenderness, left CVA tenderness, guarding or rebound. Skin: General: Skin is warm and dry. Capillary Refill: Capillary refill takes less than 2 seconds. Coloration: Skin is not jaundiced or pale. Findings: No rash. Neurological: General: No focal deficit present. Mental Status: She is alert and oriented to person, place, and time. ED Course & MDM ED Course as of 11/02/24315 Wed Nov 01, [id number] Lipase: 21 [CL] 1832 Auto WBC: 5.2 [CL] 183 Hemoglobin: 12.7 [CL] 1832 Creatinine: 0.82 [CL] 2019 CT Abdomen Pelvis w Contrast IMPRESSION: 1. No acute intraabdominal or pelvic findings. [CL] 2019 Chloride: 105 [CL] 2136 Patient still given reporting significant pain, will give a small dose of Dilaudid. [CL] 2152 Urinalysis with reflex microscopic and culture Ua unremarkable. [CL] 2152 Platelets(!): 123 [CL] 2248 ECG 12 lead EKG showing sinus bradycardia at 53 bpm, T wave flattening, left axis deviation, no STEMI [CL] 2256 Patient is still reporting significant abdominal pain. She has responded well to Haldol in thepast with previous presentations to the ER with abdominal pain. Will trial droperidol and Benadryl.[CL] Ysabel Nov 02, 2024 0034 Patient is improved at this time and is comfortable with discharge home at this time. Discussed all results at this time with CT with no acute findings. Supportive care instructions given. PCP follow-up advised. GI referral given for her intermittent chronic abdominal pain. Strict return precautions given [CL] ED Course User Index [CL] Kush Vickers MD Clinical Impressions as of 11/02/24315 Lower abdominal pain Medical Decision Making Presenting to the ER with 10 days of lower abdominal pain with nausea/vomiting. Vitals unremarkablehere including no fever. She does have diffuse lower abdominal tenderness without rebound or guarding or distention at this time. Diagnosis includes diverticulitis versus UTI versus obstruction versus gastroenteritis. Will obtain workup including abdominal labs with lipase, UA and a CT abdomen and pelvis. Will treat symptomatically with morphine, Zofran. Kush Vickers MD 11/02/24 0036 Kush Vickers MD 11/02/24 0316 documented in this encounter Plan of Treatment Upcoming Encounters Date Type Department Care Team (Late st Contact Info) Description 11/08/2024 10:00 AM EDT Office Visit Internal Medicine - [address] [phone] Hari Hernandez, ELIZABETH [address] [place], [place] 11/27/2024 10:30 AM EDT Office Visit Obstetrics and Gynecology - [place] [address] [place], [place] [phone] Elisabet Morton, TORSTEN [address] [place], [place] 02/19/2025 10:30 AM EST Office Visit Adult Medicine - [place] [address] [place] [address] Meenakshi Garcia PA [address] [place] [address] 04/19/2025 10:50 AM EDT Consult Gastroenterology - [place] 175 [facility] 175 [facility] [address] [place] [phone] Hollie Edwards PA 175 [facility] [address] [place] [address] 06/22/2025 10:30 AM EDT Office Visit Bariatric Surgery - [place] [address] [place] [address] Gladys Jones MD [facility] [address] Scheduled Referrals Name Type Priority Associated Diagnoses Order Schedule Ambulatory referral to Gastroenterology Outpatient Referral Routine Expected: 12/02/2024, Expires: 11/02/2025 documented as of this encounter Procedures Procedure Name Priority Date/Time Associated Diagnosis Comments ECG ANNOTATED 11/02/2024 ECG 12-LEAD STAT 11/01/2024 10:49 PM EDT URINALYSIS WITH REFLEX MICROSCOPIC AND CULTURE STAT 11/01/2024 9:10 PM EDT GERARD URINE CULTURE TUBE STAT 11/01/2024 9:10 PM EDT URINALYSIS WITH REFLEX MICROSCOPIC AND CULTURE STAT 11/01/2024 9:[address] ABDOMEN PELVIS W CONTRAST STAT 11/01/2024 7:49 PM EDT CBC WITH AUTO DIFFERENTIAL STAT 11/01/2024 5:21 PM EDT CBC AND DIFFERENTIAL STAT 11/01/2024 5:21 PM EDT LIPASE STAT 11/01/2024 5:21 PM EDT COMPREHENSIVE METABOLIC PANEL STAT 11/01/2024 5:21 PM EDT documented in this encounter Results * ECG-Annotated (11/02/2024) us Provider Onbase MD ECG ORDERABLES Final Result * ECG 12 lead (11/01/2024 10:49 PM EDT) Ventricular Rate ECG 53 BPM GEMUSE Atrial Rate 53 BPM GEMUSE P-R Interval 156 ms GEMUSE QRS Duration 88 ms GEMUSE Q-T Interval 462 ms GEMUSE QTc 433 ms GEMUSE P Wave [place] 8 degrees GEMUSE R [place] -16 degrees GEMUSE T [place] 16 degrees GEMUSE ECG Interpretation Sinus bradycardia Cannot rule out Anterior infarct , age undetermined Abnormal ECG When compared with ECG of 21-JUL-2024 21:42, No significant change was found Confirmed by LIYAH PEREZ ([id number]) on 11/02/2024 11:44:36 AM GEMUSE 11/01/2024 10:4 9 PM EDT 11/02/2024 11:44 AM EDT us Kush Vickers MD ECG ORDERABLES Final Result Performing Organization Address City/[facility]/ZIP Co de Phone Number GEMUSE * Gerard urine culture tube (11/01/2024 9:10 PM EDT) Extra Tube Hold for add-ons. 11/01/2024 11:[address] [facility] Comment:Auto resulted. Urine Urine specimen obtained by clean catch procedure / Unknown Non-blood Collection / Unknown 11/01/2024 9:10 PM EDT 11/01/2024 9:40 PM EDT [facility] URINE ORDERABLES F inal Result Performing Organization Address City/[facility]/ZIP Co de Phone Number [facility] [address] [place] [address], [place] [phone] * Urinalysis with reflex microscopic and culture (11/01/2024 9:10 PM EDT) Specific [place] Urine 1.015 1.003 - 1.030 LAB URINALYSIS - AUTOMATED METHOD 11/01/2024 9:[address] [facility] pH, Urine 7.0 5.0 - 8.0 pH LAB URINALYSIS - AUTOMATED METHOD 11/01/2024 9:[address] [facility] Leukocytes, Urine Negative Negative LAB URINALYSIS - AUTOMATED METHOD 11/01/2024 9:[address] [facility] Nitrite, Urine Negative Negative LAB URINALYSIS - AUTOMATED METHOD 11/01/2024 9:[address] [facility] Protein, Urine Negative <=Trace mg/dL LAB URINALYSIS - AUTOMATED METHOD 11/01/2024 9:[address] [facility] Glucose, Urine Negative Negative mg/dL LAB URINALYSIS - AUTOMATED METHOD 11/01/2024 9:[address] [facility] Ketones, Urine Negative Negative mg/dL LAB URINALYSIS - AUTOMATED METHOD 11/01/2024 9:[address] [facility] Urobilinogen, Urine 0.2 0.2 - 1.0 mg/dL LAB URINALYSIS - AUTOMATED METHOD 11/01/2024 9:[address] [facility] Bilirubin, Urine Negative Negative LAB URINALYSIS - AUTOMATED METHOD 11/01/2024 9:[address] [facility] Blood, Urine Negative Negative LAB URINALYSIS - AUTOMATED METHOD 11/01/2024 9:[address] [facility] Urine Urine specimen obtained by clean catch procedure / Unknown Non-blood Collection / Unknown 11/01/2024 9:10 PM EDT 11/01/2024 9:40 PM EDT [facility] LAB URINE ORDERABLES F inal Result [facility] [address] [place] [address], [place] [phone] * CT Abdomen Pelvis w Contrast (11/01/2024 7:49 PM EDT) Anatomical Region Laterality Modality Body Computed Tomogra phy 11/01/2024 8:16 PM EDT Impressions 11/01/2024 8:16 PM EDT 1. No acute intraabdominal or pelvic findings. This document has been electronically signed by: Annie Salas MD on 11/01/2024 20:16:27 Narrative 11/01/2024 8:16 PM EDT INDICATION: abd pain x 10 days, n/v CT abdomen and pelvis with contrast Comparison: CT - CT ABD PEL W CONTRAST - 07/06/24 01:21 EDT Findings: No consolidation or effusion. Atrophic pancreas. Liver, spleen, gallbladder, and adrenal glands are within normal limits. No hydronephrosis. Symmetric contrast enhancement of the kidneys. Postsurgical changes in the stomach. Few colonic diverticula without acute inflammation. Minimal dilatation of the appendix without inflammatory findings, likely congenital. No bowel obstruction, pneumatosis or pneumoperitoneum. Aortic atherosclerosis. No aneurysm. Portal venous system is patent. Pelvic contents unremarkable. Posterior fusion and intervertebral disc spacer at L3-L4. No acute fracture. Procedure Note Annie Salas MD - 11/01/2024 INDICATION: abd pain x 10 days, n/v CT abdomen and pelvis with contrast Comparison: CT - CT ABD PEL W CONTRAST - 07/06/24 01:21 EDT Findings: No consolidation or effusion. Atrophic pancreas. Liver, spleen, gallbladder, and adrenal glands are within normal limits. No hydronephrosis. Symmetric contrast enhancement of the kidneys. Postsurgical changes in the stomach. Few colonic diverticula without acute inflammation. Minimal dilatation of the appendix without inflammatory findings, likely congenital. No bowel obstruction, pneumatosis or pneumoperitoneum. Aortic atherosclerosis. No aneurysm. Portal venous system is patent. Pelvic contents unremarkable. Posterior fusion and intervertebral disc spacer at L3-L4. No acute fracture. IMPRESSION: 1. No acute intraabdominal or pelvic findings. This document has been electronically signed by: Annie Salas MD on 11/01/2024 20:16:27 Kush Vickers MD IM CT PROCEDURES Final Resu lt * (ABNORMAL) CBC auto differential (11/01/2024 5:21 PM EDT) WBC 5.2 4.8 - 10.8 K/[facility] HEMETOLOGY METHOD 11/01/2024 5:[address] [facility] RBC 4.10 3.80 - 4.80 M/mcL LAB HEMETOLOGY METHOD 11/01/2024 5:[address] [facility] Hemoglobin 12.7 11.5 - 16.0 g/dL LAB HEMETOLOGY METHOD 11/01/2024 5:[address] [facility] Hematocrit 36.6 35.0 - 47.0 % LAB HEMETOLOGY METHOD 11/01/2024 5:[address] [facility] MCV 88.4 79.0 - 98.0 FL LAB HEMETOLOGY METHOD 11/01/2024 5:[address] [facility] MCH 30.7 27.0 - 32.0 pcg LAB HEMETOLOGY METHOD 11/01/2024 5:[address] [facility] MCHC 34.7 32.0 - 37.0 g/dL LAB HEMETOLOGY METHOD 11/01/2024 5:[address] [facility] RDW 13.2 11.0 - 15.0 % LAB HEMETOLOGY METHOD 11/01/2024 5:[address] [facility] Platelets 123(L) 130 - 400 K/mcL LAB HEMETOLOGY METHOD 11/01/2024 5:48 [facility] MPV 12.2(H) 7.0 - 11.0 FL LAB HEMETOLOGY METHOD 11/01/2024 5:[address] [facility] NRBC 0.0 <1.0 % LAB HEMETOLOGY METHOD 11/01/2024 5:[address] [facility] NRBC Absolute 0.00 <0.10 K/mcL LAB HEMETOLOGY METHOD 11/01/2024 5:[address] [facility] Neutrophils Relative 52.0 % LAB HEMETOLOGY METHOD 11/01/2024 5:[address] [facility] Lymphocytes Relative 34.2 % LAB HEMETOLOGY METHOD 11/01/2024 5:[address] [facility] Monocytes Relative 8.7 % LAB HEMETOLOGY METHOD 11/01/2024 5:[address] [facility] Eosinophils Relative 4.1 % LAB HEMETOLOGY METHOD 11/01/2024 5:[address] [facility] Basophils Relative 0.6 % LAB HEMETOLOGY METHOD 11/01/2024 5:[address] [facility] Immature Granulocytes Relative 0.4 % LAB HEMETOLOGY METHOD 11/01/2024 5:[address] [facility] Neutrophils Absolute 2.69 1.50 - 7.00 K/mcL LAB HEMETOLOGY METHOD 11/01/2024 5:48 PM [facility] Lymphocytes Absolute 1.77 1.00 - 5.00 K/mcL LAB HEMETOLOGY METHOD 11/01/2024 5:[address] [facility] Monocytes Absolute 0.45 0.20 - 1.00 K/mcL LAB HEMETOLOGY METHOD 11/01/2024 5:[address] [facility] Eosinophils Absolute 0.21 0.00 - 0.50 K/mcL LAB HEMETOLOGY METHOD 11/01/2024 5:48 PM [facility] Basophils Absolute 0.03 0.00 - 0.20 K/mcL LAB HEMETOLOGY METHOD 11/01/2024 5:[address] [facility] Immature Granulocytes Absolute 0.02 0.00 - 0.03 K/mcL LAB HEMETOLOGY METHOD 11/01/2024 5:48 PM [facility] Blood Venous blood specimen / Unknown Venipuncture / Unknown 11/01/2024 5:21 PM EDT 11/01/2024 5:35 PM EDT [facility] LAB BLOOD ORDERABLES F inal Result Performing Organization Address City/[facility]/ZIP Co de Phone Number [facility] [address] [place] [address], [place] [phone] * Lipase (11/01/2024 5:21 PM EDT) Lipase 21 13 - 75 unit/L LAB CHEMISTRY METHOD 11/01/2024 6:[address] [facility] Blood Venous blood specimen / Unknown Venipuncture / Unknown 11/01/2024 5:21 PM EDT 11/01/2024 5:35 PM EDT [facility] LAB BLOOD ORDERABLES F inal Result Performing Organization Address [facility]/ZIP Co de Phone Number [facility] [address] [place] [address], [place] [phone] * (ABNORMAL) Comprehensive metabolic panel (11/01/2024 5:21 PM EDT) Sodium 135 133 - 145 mmol/L LAB CHEMISTRY METHOD 11/01/2024 6:06 PM [facility] Potassium 3.9 3.5 - 5.5 mmol/L LAB CHEMISTRY METHOD 11/01/2024 6:06 PM [facility] Chloride 105 96 - 110 mmol/L LAB CHEMISTRY METHOD 11/01/2024 6:06 PM [facility] CO2 25 21 - 32 mmol/L LAB CHEMISTRY METHOD 11/01/2024 6:06 PM [facility] Anion Gap 5 3 - 11 LAB CHEMISTRY METHOD 11/01/2024 6:06 PM [facility] Glucose 81 70 - 100 mg/dL LAB CHEMISTRY METHOD 11/01/2024 6:06 PM [facility] BUN 8 5 - 25 mg/dL LAB CHEMISTRY METHOD 11/01/2024 6:06 PM [facility] Creatinine 0.82 0.50 - 1.10 mg/dL LAB CHEMISTRY METHOD 11/01/2024 6:06 PM [facility] eGFR 80 >=60 mL/min/1. 73m2 LAB CHEMISTRY METHOD 11/01/2024 6:06 PM [facility] Comment:Calculation based on the Chronic Kidney Disease Epidemiology Collaboration (CKD-EPI) equation refit without adjustment for race. BUN/Creatinine Ratio 9.8 LAB CHEMISTRY METHOD 11/01/2024 6:06 PM [facility] Calcium 8.5 8.5 - 10.5 mg/dL LAB CHEMISTRY METHOD 11/01/2024 6:06 PM [facility] AST (SGOT) 14 10 - 42 unit/L LAB CHEMISTRY METHOD 11/01/2024 6:06 PM [facility] ALT (SGPT) 25 10 - 60 unit/L LAB CHEMISTRY METHOD 11/01/2024 6:06 PM [facility] Alkaline Phosphatase 59 42 - 121 unit/L LAB CHEMISTRY METHOD 11/01/2024 6:06 PM [facility] Total Protein 5.9(L) 6.0 - 8.0 g/dL LAB CHEMISTRY METHOD 11/01/2024 6:06 PM [facility] Albumin 3.8 3.2 - 5.0 g/dL LAB CHEMISTRY METHOD 11/01/2024 6:06 PM [facility] Total Bilirubin 0.4 0.0 - 1.4 mg/dL LAB CHEMISTRY METHOD 11/01/2024 6:06 PM [facility] Blood Venous blood specimen / Unknown Venipuncture / Unknown 11/01/2024 5:21 PM EDT 11/01/2024 5:35 PM EDT Kari CARRERA LAB BLOOD ORDERABLES F inal Result [facility] [address] [place] [address], documented in this encounter Visit Diagnoses Diagnosis Lower abdominal pain- Primary Abdominal pain, other specified site documented in this encounter Administered Medications Inactive Administered Medications - up to 3 most recent administrations Medication Order MAR Action Action Date Dose Rate Site diphenhydrAMINE (BENADRYL) injection 25 mg 25 mg, intravenous, Once, On Wed11/01/24 at 2249, For 1 dose Given 11/01/2024 10:56 PM EDT 25 mg droPERidol (INAPSINE) injection 0.625 mg 0.625 mg, intravenous, Once, On Wed11/01/24 at 2249, For 1 dose, Emergency Departments, Operating areas, and Post-operative areas (one time doses) for patients who FAIL TO SHOW ADEQUATE RESPONSE to other treatments: -For doses GREATER than OR equal to 2.5 mg, ECG monitoring should be performed prior to treatment and continued for 2 to 3 hours after completing treatment -For doses LESS than 2.5 mg, ECG monitoring is NOT required Head Pain units if other agents are unsuccessful (MAX of 2.5 mg three times daily): -Monitor ECG at baseline and daily while on regimen, Has the patient failed to show an adequate response to other treatments? (See order restrictions above): Yes, Is a droperidol dose GREATER than OR equal to 2.5 mg being ordered? No Given 11/01/2024 10:56 PM EDT 0.625 mg droPERidol (INAPSINE) injection 0.625 mg 0.625 mg, intravenous, Once, On Ysabel 11/02/24 at 0045, For 1 dose, Emergency Departments, Operating areas, and Post-operative areas (one time doses) for patients who FAIL TO SHOW ADEQUATE RESPONSE to other treatments: -For doses GREATER than OR equal to 2.5 mg, ECG monitoring should be performed prior to treatment and continued for 2 to 3 hours after completing treatment -For doses LESS than 2.5 mg, ECG monitoring is NOT required Head Pain units if other agents are unsuccessful (MAX of 2.5 mg three times daily): -Monitor ECG at baseline and daily while on regimen, Has the patient failed to show an adequate response to other treatments? (See order restrictions above): Yes, Is a droperidol dose GREATER than OR equal to 2.5 mg being ordered? No Given 11/02/2024 12:59 AM EDT 0.625 mg HYDROmorphone (DILAUDID) injection 0.5 mg 0.5 mg, intravenous, Once, On Wed11/01/24 at 2116, For 1 dose Given 11/01/2024 9:37 PM EDT 0.5 mg iopamidoL (ISOVUE-370) 370 mg iodine /mL (76 %) injection 90 mL 90 mL, intravenous, Once in imaging, Starting on Wed11/01/24 at 1942, For 1 dose Given 11/01/2024 7:47 PM EDT 90 mL morphine injection 4 mg 4 mg, intravenous, Once, On Wed11/01/24 at 1907, For 1 dose Given 11/01/2024 7:34 PM EDT 4 mg ondansetron (PF) (ZOFRAN) injection 4 mg 4 mg, intravenous, Once, On Wed11/01/24 at 1907, For 1 dose Given 11/01/2024 7:34 PM EDT 4 mg sodium chloride 0.9 % flush 10 mL 10 mL, intravenous, Once, On Wed11/01/24 at 1943, For 1 dose Given 11/01/2024 7:47 PM EDT 10 mL documented in this encounter Active and Recently Administered Medications Times are shown in EDT. Scheduled Medication Order 10/31/2024 11/01/2024 11/02/2024 diphenhydrAMINE (BENADRYL) injection 25 mg (COMPLETED) 25 mg, intravenous, Once, On Wed11/01/24 at 2249, For 1 dose 2255 (Given - Provider: Desiree Craven RN) droPERidol (INAPSINE) injection 0.625 mg (COMPLETED) 0.625 mg, intravenous, Once, On Wed11/01/24 at 2249, For 1 dose, Emergency Departments, Operating areas, and Post-operative areas (one time doses) for patients who FAIL TO SHOW ADEQUATE RESPONSE to other treatments: -For doses GREATER than OR equal to 2.5 mg, ECG monitoring should be performed prior to treatment and continued for 2 to 3 hours after completing treatment -For doses LESS than 2.5 mg, ECG monitoring is NOT required Head Pain units if other agents are unsuccessful (MAX of 2.5 mg three times daily): -Monitor ECG at baseline and daily while on regimen, Has the patient failed to show an adequate response to other treatments? (See order restrictions above): Yes, Is a droperidol dose GREATER than OR equal to 2.5 mg being ordered? No 6 (Given - Provider: Desiree Craven RN) droPERidol (INAPSINE) injection 0.625 mg (COMPLETED) 0.625 mg, intravenous, Once, On Ysabel 11/02/24 at 0045, For 1 dose, Emergency Departments, Operating areas, and Post-operative areas (one time doses) for patients who FAIL TO SHOW ADEQUATE RESPONSE to other treatments: -For doses GREATER than OR equal to 2.5 mg, ECG monitoring should be performed prior to treatment and continued for 2 to 3 hours after completing treatment -For doses LESS than 2.5 mg, ECG monitoring is NOT required Head Pain units if other agents are unsuccessful (MAX of 2.5 mg three times daily): -Monitor ECG at baseline and daily while on regimen, Has the patient failed to show an adequate response to other treatments? (See order restrictions above): Yes, Is a droperidol dose GREATER than OR equal to 2.5 mg being ordered? No 9 (Given - Provid er: Desiree Craven RN) HYDROmorphone (DILAUDID) injection 0.5 mg (COMPLETED) 0.5 mg, intravenous, Once, On Wed11/01/24 at 2116, For 1 dose 2136 (Given - Provider: Desiree Craven RN) iopamidoL (ISOVUE-370) 370 mg iodine /mL (76 %) injection 90 mL (COMPLETED) 90 mL, intravenous, Once in imaging, Starting on Wed11/01/24 at 194, For 1 dose 1946 (Given - Provider: Romain Cantu) morphine injection 4 mg (COMPLETED) 4 mg, intravenous, Once, On Wed11/01/24 at 190, For 1 dose 1933 (Given - Provider: Desiree Craven RN) ondansetron (PF) (ZOFRAN) injection 4 mg (COMPLETED) 4 mg, intravenous, Once, On Wed11/01/24 at 1907, For 1 dose 1933 (Given - Provider: Desiree Craven, RN) sodium chloride 0.9 % flush 10 mL (COMPLETED) 10 mL, intravenous, Once, On Wed11/01/24 at 1943, For 1 dose 1946 (Given - Provider: Romain Cantu) documented in this encounter Orders IV Count Last Ordered Date First Orde red Date INSERT PERIPHERAL IV 1 11/01/2024 documented in this encounter Care Teams Cardiac Cath Lab Manager Relationship Specialty Start Date End Date Kat Nevarez MD [address] [place] [id number] PCP - General Internal Medicine 01/18/10 documented as of this encounter
--- NOTE | 2024-11-03 11:40 | A.SPINEOV_ITS ---
Intake Visit Reasons: Severe Recurrent back pain Intake Note: Ms. Stapleton is here today c/o Severe recurrent back pain. It Security Project Manager Required: No Allergies cephalexin (From Keflex) Allergy (Intermediate, Verified 09/01/24 09:21) Swelling doxycycline Allergy (Intermediate, Verified 09/01/24 09:21) Hives glipizide Allergy (Intermediate, Verified 09/01/24 09:21) Rash metformin Allergy (Intermediate, Verified 09/01/24 09:21) Itching morphine Allergy (Intermediate, Verified 09/01/24 09:21) Nausea and Vomiting/ineffective ropinirole (From Requip) Allergy (Intermediate, Verified 09/01/24 09:21) Nausea and Vomiting CLARITZA Inhibitors Adverse Reaction (Intermediate, Verified 09/01/24 09:21) Cough Assessment & Plan Assessment & Plan (1) S/P lumbar fusion: Code(s): Z98.1 - Arthrodesis status Category: Surgical Plan: Dear colleague, On 11/03/2024, I saw Claudette Stapleton. She underwent an oblique lumbar interbody fusion L3-4 to reduce a spondylolisthesis in 2023. She returns today complaining of back pain that radiates to her right leg with walking and standing. Sitting down improves the symptoms. She denies weakness or numbness. On exam, she ambulates with a cane. She stands in a flexed position. No deficits for motor or sensory. A dynamic lumbar x-ray today shows no instability and intact hardware at L3-4. This patient is clinically suffering from neurogenic claudication symptoms. Therefore I will order an MRI of the lumbar spine to assess the spinal canal. She will return to my clinic after the MRIs done. I spent 20 minutes in his consult to discuss her history and plan of care. Chris Cat MD, PhD Spine Fellowship Trained Neurosurgeon Director, [facility] [place] [facility] (2) Neurogenic claudication: Code(s): R29.818 - Other symptoms and signs involving the nervous system Category: Medical Plan d Orders: Orders XR lumbar spine 4V min Today R29.818 - Other symptoms and signs involving the nervous system, Z98.1 - Arthrodesis status MR lumbar spine wo con Today R29.818 - Other symptoms and signs involving the nervous system, Z98.1 - Arthrodesis status Coding Level of Care Code Est Pt Level 3 (13507) Diagnoses S/P lumbar fusion Z98.1 Neurogenic claudication R29.818
--- OUTSIDE RECORDS SUMMARY | 2024-11-03 13:35 | XMS_ITS | Encounter Summary ---
Author Organization [facility] Address [address] [place] [phone] Care Team Providers Care Supervisor Waterworks Name Role Phone Kat Nevarez MD Primary Care Prov ider Reason for Visit * Reason Onset Date Comments Faxed Order [id number] 10/17/2024 Encounter Details Date Type Department Care Team ([facility] Contact Info) Description 10/17/2024 Telephone Adult Medicine - [place] [address] [place] [phone] Kat Nevarez MD [address] [place] [phone] Social History Tobacco Use Types Packs/Day Years [...] Author No 07/05/2024 7:37 PM EDT Evelyn Weinberg, CLEOPATRA * Are you blind or do you [...] Evelyn Weinberg RN documented in this encounter Progress Notes * Marika Landa - 10/17/2024 8:06 AM EDT PLEASE DOCUMENT/ CLOSE MESSAGE WHEN ORDER HAS BEEN FAXED Faxed order [id number] received from Shai Carlson, requesting signature from provider. Please sign andfax back to [phone]. Order in orange folder documented in this encounter Plan of Treatment Upcoming Encounters Date Type Department Care Team (Late st Contact Info) Description 11/08/2024 10:00 AM EDT Office Visit Internal Medicine - [facility] [place], [place] [phone] Hari Hernandez, ELIZABETH [address] [place], [place] 11/27/2024 10:30 AM EDT Office Visit Obstetrics and Gynecology - [address] [phone] Elisabet Morton, DWAIN [address] [place], [place] 02/19/2025 10:30 AM EST Office Visit Adult Medicine - [place] [address] [place] [phone] Meenakshi Garcia PA [address] [place] [address] 04/19/2025 10:50 AM EDT Consult Gastroenterology - [place] [address] [facility] [address] [place] [phone] Hollie Edwards PA 175 [facility] [address] [place] [address] 06/22/2025 10:30 AM EDT Office Visit Bariatric Surgery - [place] 175 [facility] [address] [place] [phone] Gladys Jones MD [address] [place] [phone] documented as of this encounter Visit Diagnoses Not on filedocumented in this encounter Care Teams Supervisor Waterworks Relationship Specialty Start Date End Date Kat Nevarez MD [address] [place] [address] PCP - General Internal Medicine 01/18/10 documented as of this encounter
--- OUTSIDE RECORDS SUMMARY | 2024-11-03 13:36 | XMS_ITS | Encounter Summary ---
Author Organization [facility] Address [address] [place] [address] Care Team Providers Care Production Ski Repairer Name Role Phone Kat Nevarez MD Primary Care Prov ider Encounter Details Date Type Department Care Team (Late st Contact Info) Description 05/07/2024 Lab Requisition [facility] - Main Lab [address] [facility] [place] [phone] Cesar Albert MD [address] [facility] [address] [place], [phone] Anemia, unspecified; Type 2 diabetes mellitus [...] care for your loved ones. For example, childcare administrator or elderly care for an older adult? [...] AM EDT Office Visit Internal Medicine - [address] [phone] Hari Hernandez, ELIZABETH [address] [place], [place] 11/27/2024 10:30 AM EDT Office Visit Obstetrics and Gynecology - [place] [address] [place] [address] Elisabet Morton, TORSTEN [address] [place], [place] 02/19/2025 10:30 AM EST Office Visit Adult Medicine - [place] [address] [place] [phone] Meenakshi Garcia PA [address] [place], [place] 04/19/2025 10:50 AM EDT Consult Gastroenterology - [place] [address] [facility] [address] [place] [phone] Hollie Edwards PA [address] [facility] [address] [place] [address] 06/22/2025 10:30 AM EDT Office Visit Bariatric Surgery - [place] [address] [facility] [address] [place] [phone] Gladys Jones MD [address] [place] [phone] documented as of this encounter Procedures Procedure [...] mmol/L LAB CHEMISTRY METHOD 05/08/2024 12:15 PM [facility] Potassium 3.7 3.5 - 5.5 mmol/L LAB CHEMISTRY METHOD 05/08/2024 12:15 PM [facility] Chloride 111(H) 96 - 110 mmol/L LAB CHEMISTRY METHOD 05/08/2024 12:15 PM [facility] CO2 28 21 - 32 mmol/L LAB CHEMISTRY METHOD 05/08/2024 12:15 PM [facility] Anion Gap 7 3 - 11 LAB CHEMISTRY METHOD 05/08/2024 12:[address] [facility] Glucose 76 70 - 100 mg/dL LAB CHEMISTRY METHOD 05/08/2024 12:[address] [facility] BUN 9 5 - 25 mg/dL LAB CHEMISTRY METHOD 05/08/2024 12:[address] [facility] Creatinine 0.65 0.50 - 1.10 mg/dL LAB CHEMISTRY METHOD 05/08/2024 12:[address] [facility] eGFR 99 >=60 mL/min/1. 73m2 LAB CHEMISTRY METHOD 05/08/2024 12:[address] [facility] Comment:Calculation based on the Chronic Kidney Disease Epidemiology Collaboration (CKD-EPI) equation refit without adjustment for race. BUN/Creatinine Ratio 13.8 LAB CHEMISTRY METHOD 05/08/2024 12:[address] [facility] Calcium 8.4(L) 8.5 - 10.5 mg/dL LAB CHEMISTRY METHOD 05/08/2024 12:[address] [facility] Blood Venous blood specimen / Unknown Venipuncture / Unknown 05/08/2024 6:02 AM EDT 05/08/2024 10:44 AM EDT us Cesar Albert MD LAB BLOOD ORDERABLES Final Resul t [facility] [address] [place] [address], * (ABNORMAL) Complete blood count (05/08/2024 6:02 AM EDT) WBC 5.3 4.8 - 10.8 K/mcL LAB HEMETOLOGY METHOD 05/08/2024 11:[address] [facility] RBC 3.40(L) 3.80 - 4.80 M/mcL LAB HEMETOLOGY METHOD 05/08/2024 11:[address] [facility] Hemoglobin 10.9(L) 11.5 - 16.0 g/dL LAB HEMETOLOGY METHOD 05/08/2024 11:40 AM [facility] Hematocrit 32.6(L) 35.0 - 47.0 % LAB HEMETOLOGY METHOD 05/08/2024 11:40 AM [facility] MCV 96.2 79.0 - 98.0 FL LAB HEMETOLOGY METHOD 05/08/2024 11:40 AM [facility] MCH 32.2(H) 27.0 - 32.0 pcg LAB HEMETOLOGY METHOD 05/08/2024 11:40 AM [facility] MCHC 33.4 32.0 - 37.0 g/dL LAB HEMETOLOGY METHOD 05/08/2024 11:40 AM [facility] RDW 12.8 11.0 - 15.0 % LAB HEMETOLOGY METHOD 05/08/2024 11:40 AM [facility] Platelets 86(L) 130 - 400 K/mcL LAB HEMETOLOGY METHOD 05/08/2024 11:40 AM [facility] Comment:previously verified by slide MPV 13.8(H) 7.0 - 11.0 FL LAB HEMETOLOGY METHOD 05/08/2024 11:40 AM [facility] NRBC 0.0 <1.0 % LAB HEMETOLOGY METHOD 05/08/2024 11:40 AM [facility] NRBC Absolute 0.00 <0.10 K/mcL LAB HEMETOLOGY METHOD 05/08/2024 11:40 AM [facility] Blood Venous blood specimen / Unknown Venipuncture / Unknown 05/08/2024 6:02 AM EDT 05/08/2024 10:44 AM EDT us Cesar Albert MD LAB BLOOD ORDERABLES Final Resul t [facility] [address] [place] [address], documented in this encounter Visit Diagnoses Diagnosis Anemia, unspecified Type 2 diabetes mellitus without complications ([facility] V24, [facility] V28) Chronic obstructive pulmonary disease, unspecified ([facility] V24, [facility] V28) documented in this encounter Additional Health Concerns Infection Onset Date Last Indicated Resolved Time Respiratory Rule-Out 07/22/2024 07/22/2024 025 2:14 AM EDT COVID-19 Rule-Out 07/22/2024 07/22/2024 07/22/2024 2:14 AM EDT documented as of this encounter Care Teams Production Ski Repairer Relationship Specialty Start Date End Date Kat Nevarez MD [address] [place] [phone] PCP - General Internal Medicine 01/18/10 documented as of this encounter
--- OUTSIDE RECORDS SUMMARY | 2024-11-03 13:36 | XMS_ITS | Encounter Summary ---
Author Organization [facility] Address [address] [place] [address] Care Team Providers Care Cotton Factor Name Role Phone Kat Nevarez MD Primary Care Prov ider Encounter Details Date Type Department Care Team (Late st Contact Info) Description 04/26/2024 Lab Requisition [facility] - Main Lab 299 [facility] [place] [address] Cesar Albert MD [address] [place] [address] 204 [place], [phone] Anemia, unspecified Social History Tobacco Use Types Packs/Day Years [...] care for your loved ones. For example, childbirth and infant care teacher or elderly care for an older [...] of Assessment Author No 04/21/2024 3:18 PM Chanel Maldonado, RN * Are you blind or do you have serious difficulty seeing, even when wearing glasses? Answer Date of Assessment Author No 04/21/2024 3:18 PM Chanel Maldonado, RN * Do you have serious difficulty [...] AM EDT Office Visit Internal Medicine - [address] [phone] Hari Hernandez, ELIZABETH [address] [place], [place] 11/27/2024 10:30 AM EDT Office Visit Obstetrics and Gynecology - [place] [address] [place] [address] Elisabet Morton, TORSTEN [address] [place], [place] 02/19/2025 10:30 AM EST Office Visit Adult Medicine - [place] [address] [place] [address] Meenakshi Garcia PA [address] [place], [place] 04/19/2025 10:50 AM EDT Consult Gastroenterology - [place] [address] [facility] [address] [place] [phone] Hollie Edwards PA [address] [place] [address] 06/22/2025 10:30 AM EDT Office Visit Bariatric Surgery - [place] 175 [facility] [address] [place] [phone] Gladys Jones MD [address] [place] [phone] documented as of this encounter Procedures Procedure Name Priority Date/Time Associated Diagnosis Comments COMPLETE BLOOD COUNT Routine 04/26/2024 5:16 AM EDT Anemia, unspecified COMPREHENSIVE METABOLIC PANEL Routine 04/26/2024 5:16 AM EDT Anemia, unspecified documented in this encounter Results * (ABNORMAL) Comprehensive metabolic panel (04/26/2024 5:16 AM EDT) Sodium 143 133 - 145 mmol/L LAB CHEMISTRY METHOD 04/26/2024 12:45 PM [facility] Potassium 3.9 3.5 - 5.5 mmol/L LAB CHEMISTRY METHOD 04/26/2024 12:45 PM [facility] Chloride 110 96 - 110 mmol/L LAB CHEMISTRY METHOD 04/26/2024 12:45 PM [facility] CO2 29 21 - 32 mmol/L LAB CHEMISTRY METHOD 04/26/2024 12:45 PM [facility] Anion Gap 4 3 - 11 LAB CHEMISTRY METHOD 04/26/2024 12:45 PM [facility] Glucose 77 70 - 100 mg/dL LAB CHEMISTRY METHOD 04/26/2024 12:45 PM [facility] BUN 10 5 - 25 mg/dL LAB CHEMISTRY METHOD 04/26/2024 12:[facility] Creatinine 0.76 0.50 - 1.10 mg/dL LAB CHEMISTRY METHOD 04/26/2024 12:45 PM [facility] eGFR 88 >=60 mL/min/1. 73m2 LAB CHEMISTRY METHOD 04/26/2024 12:45 PM [facility] Comment:Calculation based on the Chronic Kidney Disease Epidemiology Collaboration (CKD-EPI) equation refit without adjustment for race. BUN/Creatinine Ratio 13.2 LAB CHEMISTRY METHOD 04/26/2024 12:45 PM [facility] Calcium 8.5 8.5 - 10.5 mg/dL LAB CHEMISTRY METHOD 04/26/2024 12:45 PM [facility] AST (SGOT) 11 10 - 42 unit/L LAB CHEMISTRY METHOD 04/26/2024 12:45 PM [facility] ALT (SGPT) 15 10 - 60 unit/L LAB CHEMISTRY METHOD 04/26/2024 12:45 PM [facility] Alkaline Phosphatase 45 42 - 121 unit/L LAB CHEMISTRY METHOD 04/26/2024 12:45 PM [facility] Total Protein 5.0(L) 6.0 - 8.0 g/dL LAB CHEMISTRY METHOD 04/26/2024 12:45 PM [facility] Albumin 2.9(L) 3.2 - 5.0 g/dL LAB CHEMISTRY METHOD 04/26/2024 12:45 PM [facility] Total Bilirubin 0.5 0.0 - 1.4 mg/dL LAB CHEMISTRY METHOD 04/26/2024 12:45 PM [facility] Blood Venous blood specimen / Unknown Venipuncture / Unknown 04/26/2024 5:16 AM EDT 04/26/2024 9:41 AM EDT us Cesar Albert MD LAB BLOOD ORDERABLES Final Resul t [facility] [address] [place] [address], * (ABNORMAL) Complete blood count (04/26/2024 5:16 AM EDT) [facility] Signature WBC 4.4(L) 4.8 - 10.8 K/mcL LAB HEMETOLOGY METHOD 04/26/2024 11:[address] [facility] RBC 3.70(L) 3.80 - 4.80 M/mcL LAB HEMETOLOGY METHOD 04/26/2024 11:[address] [facility] Hemoglobin 11.9 11.5 - 16.0 g/dL LAB HEMETOLOGY METHOD 04/26/2024 11[facility] Hematocrit 35.9 35.0 - 47.0 % LAB HEMETOLOGY METHOD 04/26/2024 11:[address] [facility] MCV 96.5 79.0 - 98.0 FL LAB HEMETOLOGY METHOD 04/26/2024 11:[address] [facility] MCH 32.0 27.0 - 32.0 pcg LAB HEMETOLOGY METHOD 04/26/2024 11[facility] MCHC 33.1 32.0 - 37.0 g/dL LAB HEMETOLOGY METHOD 04/26/2024 11:[address] [facility] RDW 13.3 11.0 - 15.0 % LAB HEMETOLOGY METHOD 04/26/2024 11:[address] [facility] Platelets 116(L) 130 - 400 K/mcL LAB HEMETOLOGY METHOD 04/26/2024 11:[address] [facility] MPV 13.3(H) 7.0 - 11.0 FL LAB HEMETOLOGY METHOD 04/26/2024 11:[address] [facility] NRBC 0.0 <1.0 % LAB HEMETOLOGY METHOD 04/26/2024 11:[address] [facility] NRBC Absolute 0.00 <0.10 K/mcL LAB HEMETOLOGY METHOD 04/26/2024 11:[address] [facility] Blood Venous blood specimen / Unknown Venipuncture / Unknown 04/26/2024 5:16 AM EDT 04/26/2024 9:41 AM EDT us Cesar Albert MD LAB BLOOD ORDERABLES Final Resul t [facility] [address] [place] [address], documented in this encounter Visit Diagnoses Diagnosis Anemia, unspecified documented in this encounter Additional Health Concerns Infection Onset Date Last Indicated Resolved Time Respiratory Rule-Out 07/22/2024 07/22/202407/22/2 025 2:14 AM EDT COVID-19 Rule-Out 07/22/2024 07/22/2024 07/22/2024 2:14 AM EDT documented as of this encounter Care Teams Cotton Factor Relationship Specialty Start Date End Date Kat Nevarez MD [address] [place] [phone] PCP - General Internal Medicine 01/18/10 documented as of this encounter
--- OUTSIDE RECORDS SUMMARY | 2024-11-03 13:36 | XMS_ITS | Patient Health Record ---
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, 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 (03412997) Anastomotic ulcer (K28.9) Active confirmed Problem Jejunal ulcer (24059450) 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 Encounters Encounter Location Date Provider Diagnosis [facility] [address] [place] [phone] 10/04/2024 Lobo Titus Jr Plan Of Treatment Next Appt Details Provider Name:Lobo talbert Jr, 02/12/2025 10:20:00 AM, [address] [place] [address], [address], [place], [address], Insurance Providers Payer Name Payer Address Payer Phone Subscriber Number Group Number Insured Name Patient Relationship to Insured Coverage Start Date Coverage End Date [facility] [address] Attn Claims [place] [facility] [id number] MARGOT ENGLISH Self - patient is the insured
--- OUTSIDE RECORDS SUMMARY | 2024-11-03 13:36 | XMS_ITS | Encounter Summary ---
Author Organization [facility] Address [address] [place] [address] Care Team Providers Care Chemical Process Analyst Name Role Phone Kat Nevarez MD Primary Care Prov ider Encounter Details Date Type Department Care Team (Late st Contact Info) Description 04/25/[address] [facility] - Main Lab 299 [facility] [place] [address] Cesar Albert MD [address] [facility] [address] [place], [phone] Anemia, unspecified; Type 2 diabetes mellitus without complications (CMS/HCC V24, CMS/HCC V28); Essential (primary) hypertension; Chronic obstructive pulmonary disease, unspecified (CMS/HCC V24, [...] for your loved ones. For example, childbirth educator or elderly care for an older [...] Entry Date Author No 04/21/2024 3:18 PM [facility] Chanel Khan RN documented in this encounter Plan of Treatment Upcoming Encounters Date Type Department Care Team (Late st Contact Info) Description 11/08/2024 10:00 AM EDT Office Visit Internal Medicine - [address] [phone] Hari Hernandez NP [address] [place], [place] 11/27/2024 10:30 AM EDT Office Visit Obstetrics and Gynecology - [place] [address] [place] [address] Elisabet Morton, DWAIN [address] [place], [place] 02/19/2025 10:30 AM EST Office Visit Adult Medicine - [place] [address] [place] [address] Meenakshi Garcia PA [address] [place] [address] 04/19/2025 10:50 AM EDT Consult Gastroenterology - [place] 175 [facility] 175 [facility] [address] [place] [phone] Hollie Edwards PA 175 [facility] [address] [place] [address] 06/22/2025 10:30 AM EDT Office Visit Bariatric Surgery - [place] 175 [facility] [address] [place] [phone] Gladys Jones MD [address] [place] [phone] documented as of this encounter Procedures Procedure Name Priority Date/Time Associated Diagnosis Comments COMPLETE BLOOD COUNT Routine 04/25/2024 5:10 AM EDT Anemia, unspecified Type 2 diabetes mellitus without complications (CMS/HCC) Essential (primary) hypertension Chronic obstructive pulmonary disease, unspecified (CMS/HCC) COMPREHENSIVE METABOLIC PANEL Routine 04/25/2024 5:10 AM EDT Anemia, unspecified Type 2 diabetes mellitus without complications (CMS/HCC) Essential (primary) hypertension Chronic obstructive pulmonary disease, unspecified (CMS/HCC) documented in this encounter Results * (ABNORMAL) Comprehensive metabolic panel (04/25/2024 5:10 AM EDT) Sodium 145 133 - 145 mmol/L LAB CHEMISTRY METHOD 04/25/2024 10:[address] [facility] Potassium 3.4(L) 3.5 - 5.5 mmol/L LAB CHEMISTRY METHOD 04/25/2024 10:[address] [facility] Chloride 110 96 - 110 mmol/L LAB CHEMISTRY METHOD 04/25/2024 10:[address] [facility] CO2 29 21 - 32 mmol/L LAB CHEMISTRY METHOD 04/25/2024 10:17 AM [facility] Anion Gap 6 3 - 11 LAB CHEMISTRY METHOD 04/25/2024 10:17 AM [facility] Glucose 55(L) 70 - 100 mg/dL LAB CHEMISTRY METHOD 04/25/2024 10:17 AM [facility] BUN 10 5 - 25 mg/dL LAB CHEMISTRY METHOD 04/25/2024 10:17 AM [facility] Creatinine 0.77 0.50 - 1.10 mg/dL LAB CHEMISTRY METHOD 04/25/2024 10:17 AM [facility] eGFR 87 >=60 mL/min/1. 73m2 LAB CHEMISTRY METHOD 04/25/2024 10:17 AM [facility] Comment:Calculation based on the Chronic Kidney Disease Epidemiology Collaboration (CKD-EPI) equation refit without adjustment for race. BUN/Creatinine Ratio 13.0 LAB CHEMISTRY METHOD 04/25/2024 10:17 AM [facility] Calcium 8.5 8.5 - 10.5 mg/dL LAB CHEMISTRY METHOD 04/25/2024 10:17 AM [facility] AST (SGOT) 11 10 - 42 unit/L LAB CHEMISTRY METHOD 04/25/2024 10:17 AM [facility] ALT (SGPT) 18 10 - 60 unit/L LAB CHEMISTRY METHOD 04/25/2024 10:17 AM [facility] Alkaline Phosphatase 50 42 - 121 unit/L LAB CHEMISTRY METHOD 04/25/2024 10:17 AM [facility] Total Protein 5.2(L) 6.0 - 8.0 g/dL LAB CHEMISTRY METHOD 04/25/2024 10:17 AM [facility] Albumin 3.1(L) 3.2 - 5.0 g/dL LAB CHEMISTRY METHOD 04/25/2024 10:17 AM [facility] Total Bilirubin 0.2 0.0 - 1.4 mg/dL LAB CHEMISTRY METHOD 04/25/2024 10:[address] [facility] Blood Venous blood specimen / Unknown Venipuncture / Unknown 04/25/2024 5:10 AM EDT 04/25/2024 9:04 AM EDT us Cesar Albert MD LAB BLOOD ORDERABLES Final Resul t [facility] [address] [place] [address], [place] [phone] * (ABNORMAL) Complete blood count (04/25/2024 5:10 AM EDT) WBC 4.8 4.8 - 10.8 K/mcL LAB HEMETOLOGY METHOD 04/25/2024 9:[address] [facility] RBC 3.90 3.80 - 4.80 M/mcL LAB HEMETOLOGY METHOD 04/25/2024 9:[address] [facility] Hemoglobin 12.3 11.5 - 16.0 g/dL LAB HEMETOLOGY METHOD 04/25/2024 9:[address] [facility] Hematocrit 36.7 35.0 - 47.0 % LAB HEMETOLOGY METHOD 04/25/2024 9:[address] [facility] MCV 95.1 79.0 - 98.0 FL LAB HEMETOLOGY METHOD 04/25/2024 9:[address] [facility] MCH 31.9 27.0 - 32.0 pcg LAB HEMETOLOGY METHOD 04/25/2024 9:[address] [facility] MCHC 33.5 32.0 - 37.0 g/dL LAB HEMETOLOGY METHOD 04/25/2024 9:[address] [facility] RDW 13.1 11.0 - 15.0 % LAB HEMETOLOGY METHOD 04/25/2024 9:[address] [facility] Platelets 127(L) 130 - 400 K/mcL LAB HEMETOLOGY METHOD 04/25/2024 9:[address] [facility] MPV 12.9(H) 7.0 - 11.0 FL LAB HEMETOLOGY METHOD 04/25/2024 9:[address] [facility] NRBC 0.0 <1.0 % LAB HEMETOLOGY METHOD 04/25/2024 9:[address] [facility] NRBC Absolute 0.00 <0.10 K/mcL LAB HEMETOLOGY METHOD 04/25/2024 9:[address] [facility] Blood Venous blood specimen / Unknown Venipuncture / Unknown 04/25/2024 5:10 AM EDT 04/25/2024 9:04 AM EDT us Cesar Albert MD LAB BLOOD ORDERABLES Final Resul t [facility] [address] [place] [address], documented in this encounter Visit Diagnoses Diagnosis Anemia, unspecified Type 2 diabetes mellitus without complications (CMS/HCC V24, CMS/HCC V28) Essential (primary) hypertension Unspecified essential hypertension Chronic obstructive pulmonary disease, unspecified (CMS/HCC V24, CMS/HCC V28) documented in this encounter Additional Health Concerns Infection Onset Date Last Indicated Resolved Time Respiratory Rule-Out 07/22/2024 07/22/202407/22/2 025 2:14 AM EDT COVID-19 Rule-Out 07/22/2024 07/22/2024 07/22/2024 2:14 AM EDT documented as of this encounter Care Teams Chemical Process Analyst Relationship Specialty Start Date End Date Kat Nevarez MD [address] [place] [phone] PCP - General Internal Medicine 01/18/10 documented as of this encounter
--- OUTSIDE RECORDS SUMMARY | 2024-11-03 13:36 | XMS_ITS | Clinical Summary ---
Author Organization [facility] Address [address] [place] [phone] Phone Care Team Providers Care Echo Technologist Name Role Phone Kat Nevarez MD Primary Care Prov ider Allergies Active Allergy Reactions Criticality Noted Date Comments Leander Inhibitors 02/26/2012 Cough Cephalexin 01/28/2024 Cephalexin Monohydrate Swelling 06/03/2010 Glipizide 02/21/2010 Other Reaction(s): OTHER, Rash/Dermatitis Rash with burning sensation Glucagon Unknown 07/21/2022 Haloperidol Cough,Headache,Sore Throat 07/22/2024 Ibuprofen Rash 03/11/2024 Metformin Itching 03/27/2013 Ropinirole Nausea And Vomiting 08/26/2010 Generic medication only not the brand name (Requip) Medications albuterol HFA (PROAIR HFA ; PROVENTIL HFA ; VENTOLIN HFA) 90 mcg/actuation inhaler Inhale 2 Puffs into the lungs every 6 hours as needed for Cough, Wheezing or Shortness of Breath. 024 Active FREESTYLE LANCETS MISC To test sugars bid 022 Active FreeStyle Kalyan 3 Sensor deviceIndications :Type 2 diabetes mellitus with diabetic neuropathy, with long-term current use of insulin ([facility] V24, [facility] V28) Box = Kit = EACHANGE 1 DEVICE EVERY 14 DAYS 6 each 1 025 Active glucose 4 gram chewable tablet Chew 4 tablets (16 g total) if needed for low blood sugar. 50 tablet 025 2025 Active dextrose (Dex4 Glucose) 15 gram/33 gram gel in packet Use as directed for Hypoglycemia. 33 g 5 025 Active gabapentin (NEURONTIN) 800 mg tablet Take 1 tablet (800 mg total) by mouth 2 (two) times a day. 180 each 025 Active blood-glucose,rec eiver,cont (FreeStyle Kalyan 3 [place]) miscIndications:T ype 2 diabetes mellitus with diabetic peripheral angiopathy without gangrene, with long-term current use of insulin ([facility] V24, [facility] V28) Use as directed 1 each 025 Active budesonide-formot Amilcar (SYMBICORT) 160-4.5 mcg/actuation inhaler Inhale 2 puffs by mouth 2 (two) times a day. Rinse mouth with water after use to reduce aftertaste and incidence of candidiasis. Do not swallow. 10.2 g 5 025 Active omeprazole (PriLOSEC) [address] capsule TAKE 1 CAPSULE BY MOUTH DAILY 90 capsule 1 025 Active furosemide (LASIX) 40 mg tablet Take 0.5 tablets (20 mg total) by mouth 1 (one) time each day. 45 tablet 1 025 Active melatonin-lemon balm leaf extr 10-1 mg tablet TAKE 1 TABLET BY MOUTH DAILY AT BEDTIME 90 tablet 1 025 Active melatonin-lemon balm leaf extr 10-1 mg tablet Take 1 tablet by mouth at bedtime. at bedtime 025 Active docusate sodium (COLACE) 100 mg capsule TAKE 1 CAPSULE BY MOUTH TWICE DAILY 180 capsule 025 Active ondansetron ODT (ZOFRAN-ODT) 4 mg disintegrating tablet Let 1 tablet dissolve under the tongue three times daily as needed for nausea or vomiting. 10 tablet 025 Active vortioxetine (TRINTELLIX) 10 mg tabletIndications :Bipolar 1 disorder, mixed ([facility] V24, [facility] V28) Take 1 tablet (10 mg total) by mouth 1 (one) time each day for 90 doses. 90 tablet 06/13/2 025 Active topiramate (TOPAMAX) 100 mg tablet Take 1 tablet (100 mg total) by mouth 2 (two) times a day. 180 tablet Active pregabalin (LYRICA) 200 mg capsuleIndication s:Bipolar 1 disorder, mixed (CMS/HCC V24, CMS/HCC V28) Take 1 capsule (200 mg total) by mouth 2 (two) times a day. 180 capsule Active clonazePAM (KlonoPIN) 1 mg tablet Take 1 tablet (1 mg total) by mouth 3 (three) times a day if needed for anxiety. for anxiety 84 tablet 2 Active atorvastatin (LIPITOR) 40 mg tablet Take 1 tablet (40 mg total) by mouth 1 (one) time each day. 90 each 1 025 2024 Active buPROPion SR (WELLBUTRIN SR) 100 mg 12 hr tablet TAKE 1 TABLET BY MOUTH EVERY MORNING 90 tablet 1 Active senna 8.6 mg tablet TAKE 1 TABLET BY MOUTH EVERY DAY 90 tablet 1 Active lurasidone (LATUDA) 120 mg tablet TAKE 1 TABLET(120 MG) BY MOUTH 1 TIME EACH DAY 90 tablet 1 Active acetaminophen (TYLENOL 8 HOUR) 650 mg 8 hr tablet Take 1 tablet (650 mg total) by mouth every 8 (eight) hours if needed for headaches. for pain 30 tablet 2 Active oxyCODONE-acetami nophen (PERCOCET) 5-325 mg per tablet Take 1 tablet by mouth 4 (four) times a day for 28 days. Max Daily Amount: 4 tablets 112 tablet 025 2024 Active pramipexole (MIRAPEX) 0.25 mg tablet TAKE 1 TABLET BY MOUTH DAILY 90 tablet 1 Active traZODone (DESYREL) 100 mg tablet Take 3 tablets (300 mg total) by mouth at bedtime. 90 tablet 2 Active cholecalciferol (VITAMIN D-3) 50 mcg (2,000 unit) capsule Take 1 capsule (2,000 Units total) by mouth 1 (one) time each day. 90 capsule Active cyanocobalamin (VITAMIN B-12) 100 mcg tablet Take 0.5 tablets (50 mcg total) by mouth 1 (one) time each day. 45 tablet 1 025 2025 Active cyclobenzaprine (FLEXERIL) 10 mg tabletIndications :Bipolar 1 disorder, mixed (CMS/HCC V24, CMS/HCC V28) Take 1 tablet (10 mg total) by mouth at bedtime as needed for muscle spasms. 30 each 2 Active ondansetron ODT (ZOFRAN-ODT) 4 mg disintegrating tabletIndications :Lower abdominal pain Let 1 tablet dissolve under the tongue three times daily as needed for nausea or vomiting. 10 tablet 2024 Active acetaminophen (TYLENOL) 500 mg tablet Take 2 tablets (1,000 mg total) by mouth every 6 (six) hours if needed for mild pain for up to 10 days. 30 tablet 025 2024 Active traZODone (DESYREL) 100 mg tablet Take 1 tablet (100 mg total) by mouth at bedtime. 025 2024 Discontinued(D uplicate order) traZODone (DESYREL) 100 mg tablet Take 3 tablets (300 mg total) by mouth at bedtime. 90 tablet 5 2024 Discontinued(R eorder) cyanocobalamin (VITAMIN B-12) 100 mcg tablet Take 0.5 tablets (50 mcg total) by mouth 1 (one) time each day. 45 tablet 1 025 2024 Discontinued(R eorder) pramipexole (MIRAPEX) 0.25 mg tablet TAKE 1 TABLET BY MOUTH DAILY 90 tablet 1 025 2024 Discontinued cyclobenzaprine (FLEXERIL) 10 mg tabletIndications :Bipolar 1 disorder, mixed (CMS/HCC V24, CMS/HCC V28) Take 1 tablet (10 mg total) by mouth at bedtime as needed for muscle spasms. 30 each 2 025 2024 Discontinued(R eorder) oxyCODONE-acetami nophen (PERCOCET) 5-325 mg per tablet Take 1 tablet by mouth 4 (four) times a day for 28 days. Max Daily Amount: 4 tablets 112 tablet 025 2024 Discontinued(R eorder) cholecalciferol (VITAMIN D-3) 50 mcg (2,000 unit) capsule Take 1 capsule (2,000 Units total) by mouth 1 (one) time each day. 90 capsule 025 2024 Discontinued(R eorder) Active Problems Problem Noted Date Diagnosed Date Gastroesophageal reflux disease 10/18/2024 Insomnia 06/13/2024 Vitamin D deficiency 06/13/2024 Chronic nonintractable headache 06/13/2024 Fall, initial encounter 04/24/2024 Transient neurological symptoms 04/21/2024 Alcohol abuse 01/11/2024 Diabetes mellitus, type 2 ([facility] V24, [facility] V28) 01/11/2024 Mood disorder ([facility] V24) 01/11/2024 RYAN (obstructive sleep apnea) 01/11/2024 Bradycardia 12/27/2023 Class 2 obesity due to exces s calories without serious comorbidity with body mass index (BMI) of 35.0 to 35.9 in adult 11/18/2023 Peripheral autonomic neuropa thy due to DM ([facility] V24, [facility] V28) 10/06/2022 Single subsegmental pulmonar y embolism without acute cor pulmonale ([facility] V24, [facility] V28) 08/10/2022 Overview (11/18/2023): Hospitalized 07/22/2022 Chronic bilateral low back pain with bilateral s ciatica 07/21/2022 Overview (11/18/2023): Last Assessment & Plan: I reviewed this in detail with Ms. LouisPieter using a spine model to describe the [...] leg syndrome 01/09/2015 Bipolar 1 disorder, mixed ([facility] V24, [facility] V28) 05/23/2014 Hypercholesteremia 03/27/2013 Sleep apnea 09/22/2010 Chest pain 06/11/2008 Osteoarthritis 03/01/2008 Overview (11/18/2023): Spine, shoulder, knee History of alcohol abuse 03/16/2006 Overview (11/18/2023): H/o cocaine use Resolved Problems Problem Noted Date Diagnosed Date Resolved Date Dizziness 12/29/2023 12/29/2023 Encounters Date Type Department Care Team Description 11/01/2024 6:22 PM EDT - 11/02/2024 1:51 AM EDT Emergency [facility] Emergency [address] [place] [phone] Kush Vickers MD Lower abdominal pain (Primary Dx) Discharge Disposition: Home or Self Care 10/23/2024 Telephone Adult Medicine [address] [phone] Meenakshi Garcia PA 10/18/2024 10:15 AM EDT Office Visit [address] [phone] Meenakshi Garcia PA Anemia, unspecified type (Primary Dx); Type 2 diabetes mellitus with diabetic peripheral angiopathy without gangrene, with long-term current use of insulin ([facility] V24, [facility] V28); Congestive heart failure, unspecified HF chronicity, unspecified heart failure type ([facility] V24, [facility] V28); Bipolar 1 disorder, mixed ([facility] V24, [facility] V28); Hypertension, unspecified type; Chronic bilateral low back pain with bilateral sciatica; Osteoarthritis, unspecified osteoarthritis type, unspecified site; Mood disorder ([facility] V24); Hypercholesteremia; Sleep apnea, unspecified type; Moderate persistent asthma without complication; Transient neurological symptoms; RYAN (obstructive sleep apnea); Restless leg syndrome; Peripheral autonomic neuropathy due to DM ([facility] V24, [facility] V28); Single subsegmental pulmonary embolism without acute cor pulmonale ([facility] V24, [facility] V28); Chronic nonintractable headache, unspecified headache type; Vitamin D deficiency; Insomnia, unspecified type; Gastroesophageal reflux disease, unspecified whether esophagitis present 10/17/[address] [phone] Kat Fuller MD 10/05/2024 Billing Patient Not Present [address] [phone] Kat Fuller MD Bipolar affective disorder, remission status unspecified ([facility] V24, [facility] V28) (Primary Dx); Chronic pain syndrome; Chronic obstructive pulmonary disease, unspecified COPD type ([facility] V24, [facility] V28); Type 2 diabetes mellitus without complication, unspecified whether intermediate accountant insulin use ([facility] V24, [facility] V28); Alcohol abuse, in remission; Essential (primary) hypertension 10/02/2024 Telephone Adult [facility] [address] [place] [phone] Kat Fuller MD 09/08/2024 10:00 AM EDT Evaluation [facility] [address] [phone] Christy Ng, PT Closed fracture of proximal end of left humerus, unspecified fracture morphology, sequela 08/18/[address] [phone] Kat Fuller MD 08/17/2024 Billing Patient Not Present [address] [phone] Kat Fuller MD Bipolar affective disorder, remission status unspecified (CMS/HCC V24, CMS/HCC V28) (Primary Dx); Chronic pain syndrome; Chronic obstructive pulmonary disease, unspecified COPD type (CMS/HCC V24, CMS/HCC V28); Type 2 diabetes mellitus without complication, unspecified whether care home insulin use (CMS/HCC V24, CMS/HCC V28); Alcohol abuse, in remission; Essential (primary) hypertension 08/10/[address] [phone] Kat Fuller MD 08/04/2024 Billing Patient Not Present [address] [phone] Kat Fuller MD Bipolar affective disorder, remission status unspecified (CMS/HCC V24, CMS/HCC V28) (Primary Dx); Chronic pain syndrome; Chronic obstructive pulmonary disease, unspecified COPD type (CMS/HCC V24, CMS/HCC V28); Type 2 diabetes mellitus without complication, unspecified whether care home insulin use (CMS/HCC V24, CMS/HCC V28); Alcohol abuse, in remission; Essential (primary) hypertension 08/03/2024 10:30 AM EDT Office Visit Orthopedic Surgery - [place] [address] [facility] [address] [place] [address] Haley Lara MD Closed fracture of proximal end of left humerus, unspecified fracture morphology, sequela (Primary Dx) 08/03/2024 Telephone Adult Medicine - [place] [address] [place] [phone] Kat Fuller MD 08/03/2024 Telephone Adult Medicine - [place] [address] [place] [phone] Kat Fuller MD from Last 3 Months Immunizations Name Administration Dates Next Due H1N1 Inj Preservative Free 02/11/2009 Influenza Quadravalent, MDCK , 0.5ml, preservative free (Flucelvax) 6mo and older 12/01/2022,01/06/2022,12/05/2018 Influenza Quadrivalent, 0.5m l, preservative free (Fluarix; FluLaval; Fluzone) ages 6mo and older (Afluria) 3yo and older 10/23/2022,01/30/2021,10/27/2019 Influenza trivalent, with pr eservative (Fluzone; Afluria) 6mo and older 10/27/2019,12/05/2018,11/03/2016,12/13,10/20/2012,10/23/2011,10/31/2010 ,11/25/2009,01/29/2009,11/28/2007 Influenza, Unspecified 02/11/2009 Moderna SARS-CoV-2 COVID-19, mRNA, LNP-S, preservative free 06/13/2020 Pneumococcal conjugate 13 va lent (Prevnar 13, PCV13) 2mo and older 03/22/2019 Pneumococcal polysaccharide 23 valent (Pneumovax 23) 2yo and older 10/27/2019,12/19/2013,11/28/2007 Td Tetanus diptheria (Tdvax) 7yo and older 12/09/2007,12/08/2007 Td, Unspecified 12/09/2007 Tdap Tetanus diptheria acell ular pertussis (Boostrix; Adacel) 7yo and older 06/13/2024 Surgical History Surgery Date Site/Laterality Comments TONSILLECTOMY PROCEDURE: HISTORICAL TONSILLECTOMY OTHER SURGICAL HISTORY 07/15 PROCEDURE: HISTORICAL SUPRACERVICAL HYSTERECTOMY W/O BSO; COMMENT: ovarian concervation, supracervical abdominal hysterectomy, for 20 weeks size fibroid uterus TUBAL LIGATION PROCEDURE: HISTORICAL TUBAL LIGATION TOTAL KNEE ARTHROPLASTY 07/2019 Right PROCEDURE: FL ARTHRP KNE CONDYLE&PLATU MEDIAL&LAT COMPARTMENTS Medical History Medical History Date Comments Bipolar 1 disorder, mixed ([facility] V24, [facility] V28) 05/23/2014 DX:Bipolar 1 disorder, mixed ([facility]) Osteoarthritis DX:Osteoarthriti s; COMMENT: spine, shoulder, knee History of alcohol abuse 03/16/2006 DX:Hist ory of alcohol abuse Hypercholesteremia 03/27/2013 DX:Hyperchole steremia Moderate persistent asthma w ithout complication 10/09/2016 DX:Moderate persistent asthm a without complication Sleep apnea 09/22/2010 DX:Sleep apnea Restless leg syndrome 01/09/2015 DX:Restles s leg syndrome S/P laparoscopic sleeve gastrectomy 08/22/2015 DX:S/P laparoscopic sleeve gastrectomy Intertrigo 04/04/2018 DX:Intertrigo Diabetes mellitus ([facility] V 24, [facility] V28) Chronic pain Hypertension Anemia History of adverse effect of venous thromboembolism (VTE) prophylaxis Headache COPD (chronic obstructive pu lmonary disease) ([facility] V24, [facility] V28) GERD (gastroesophageal reflux disease) Family History Medical History Relation Name Comments Asthma Daughter Throat cancer Father Cataract, Glau coma Diabetes Mother CHF Heart failure Mother Heart failure Sister Relation Name Status Comments Daughter Father Mother Alive Sister Social History Tobacco Use Types Packs/Day Years Used Date Smoking Tobacco: Never Smokeless Tobacco: Never Tobacco Cessation:Counseling Given: No Alcohol Use Standard Drinks/Week Comments No 0 [...] loved ones. For example, early childhood education instructor or elderly care for an older adult? [...] Mass Index 24.96 11/01/2024 3:51 PM EDT Plan of Treatment Upcoming Encounters Date Type Department Care Team (Late st Contact Info) Description 11/08/2024 10:00 AM EDT Office Visit Internal Medicine - [facility] [address] [place] [phone] Hari Hernandez NP [address] [place], [place] 11/27/2024 10:30 AM EDT Office Visit Obstetrics and Gynecology - [address] [phone] Elisabet Morton, [facility] [address] [place], [place] 02/19/2025 10:30 AM EST Office Visit Adult Medicine - [place] [address] [place] [phone] Meenakshi Garcia PA [address] [place] [address] 04/19/2025 10:50 AM EDT Consult Gastroenterology - [place] [address] [facility] [address] [place] [phone] Holile Edwards PA [address] [place] [address] 06/22/2025 10:30 AM EDT Office Visit Bariatric Surgery - [address] [place] [phone] Gladys Jones MD [address] [place] [phone] Health Maintenance Due Date Last Done Comments Diabetes: Annual Foot Exam 1970 Diabetes: Annual Retina Eye Exam 1970 Hepatitis A Vaccines (1 of 2 - Risk 2-dose series) 09/03/1979 Zoster Vaccines (1 of 2) 2010 RSV Immunization Adult Patients (1 - Risk 60-74 years 1-dose series) 2020 Colorectal Cancer Screening: Colonoscopy 01/17/2022 HIV Screening 01/17/2022 Medicare Annual Wellness Visit 01/17/2022 Breast Cancer Screening 01/15/2024 01/15/20 22, 01/09/2021, 03/10/2018 Depression Screening 02/09/2024 COVID-19 Vaccine ( season) 2024 03/26/2021, 07/15/2020, 06/13/2020 Influenza Vaccine (#1) 2024 , 10/23/2022, 01/06/2022, Additional history exists Diabetes: Annual Urine Albumin-Creatinine Ratio (uACR) 10/19/2024 10/20/2023 Pneumococcal Vaccine: 50+ Years (3 of 3 - PCV20 or PCV21) 10/26/2024 10/27/2019, 03/22/2019, 12/19/2013, Additional history exists Social Influencers of Health Screening 12/28/2024 12/29/2023 Diabetes: Blood Sugar Control Test (HGBA1C) 04/17/2025 10/18/2024, 04/21/2024, 10/20/2023, Additional history exists Diabetes: Annual GFR (Glomerular Filtration Rate) 11/01/2025 11/01/2024, 10/18/2024, 07/21/2024, Additional history exists Hypertension/CHF/CAD Annual BMP Blood Test 11/01/2025 11/01/2024, 10/18/2024, 07/21/2024, Additional history exists Cervical Cancer Screening: HPV 11/12/2027 11/11/2022 Cholesterol Screening (Lipid Panel) 04/21/2029 04/21/2024, 10/20/2023, 10/20/2023 DTaP,Tdap,and Td Vaccines (5 - Td or Tdap) 06/13/2034 06/13/2024, 12/09/2007, 12/09/2007, Additional history exists Hepatitis C Screening Completed 03/15/2006 HIB Vaccines [...] age to complete this topic Meningococcal B Vaccine Aged Out No l onger eligible based on patient's age to complete this topic RSV Immunization Patients Under 20 months Aged Out No longer eligible based on patient's age to complete this topic Varicella Vaccines Aged Out No longer eligible based on patient's age to complete this topic Procedures Procedure Name Priority Date/Time Associated Diagnosis Comments ECG ANNOTATED 11/02/2024 ECG 12-LEAD STAT 11/01/2024 10:49 PM EDT GERARD URINE CULTURE TUBE STAT 11/01/2024 9:10 PM EDT URINALYSIS WITH REFLEX MICROSCOPIC AND CULTURE STAT 11/01/2024 9:10 PM EDT URINALYSIS WITH REFLEX MICROSCOPIC AND CULTURE STAT 11/01/2024 9:[address] ABDOMEN PELVIS W CONTRAST STAT 11/01/2024 7:49 PM EDT CBC WITH AUTO DIFFERENTIAL STAT 11/01/2024 5:21 PM EDT LIPASE STAT 11/01/2024 5:21 PM EDT COMPREHENSIVE METABOLIC PANEL STAT 11/01/2024 5:21 PM EDT CBC AND DIFFERENTIAL STAT 11/01/2024 5:21 PM EDT CBC WITH AUTO DIFFERENTIAL Routine 10/18/2024 10:48 AM EDT Anemia, unspecified type COMPREHENSIVE METABOLIC PANEL Routine 10/18/2024 10:48 AM EDT Congestive heart failure, unspecified HF chronicity, unspecified heart failure type (CMS/HCC V24, CMS/HCC V28) IRON AND TIBC Routine 10/18/2024 10:48 AM EDT Anemia, unspecified type CBC AND DIFFERENTIAL Routine 10/18/2024 10:48 AM EDT Anemia, unspecified type HEMOGLOBIN A1C Routine 10/18/2024 10:48 AM EDT Type 2 diabetes mellitus with diabetic peripheral angiopathy without gangrene, with long-term current use of insulin (CMS/HCC V24, CMS/HCC V28) EXTERNAL CT REPORT 08/22/2024 XR SHOULDER 2+ VIEWS LEFT Routine 08/03/2024 11:10 AM EDT Closed fracture of proximal end of left humerus, unspecified fracture morphology, sequela LIPID PANEL WITH REFLEX TO DIRECT LDL Add-On 04/21/2024 2:05 PM EDT URINE ALBUMIN CREATININE RATIO Routine 10/20/2023 HPV Routine 11/11/2022 GISELLE SCREENING DIGITAL Routine 01/14/2022 7:00 PM EST Encounter for screening mammogram for malignant neoplasm of breast HEPATITIS C SCREENING Routine 03/15/2006 from Last 3 Months or Most Recently Relevant to Health Maintenance Results * ECG-Annotated (11/02/2024) Provider Onbase ECG ORDERABLES Final Result * ECG 12 lead (11/01/2024 10:49 PM EDT) Pathologist [facility] Ventricular Rate ECG 53 BPM GEMUSE Atrial Rate 53 BPM GEMUSE P-R Interval 156 ms GEMUSE QRS Duration 88 ms GEMUSE Q-T Interval 462 ms GEMUSE QTc 433 ms GEMUSE P Wave [place] 8 degrees GEMUSE R [place] -16 degrees GEMUSE T [place] 16 degrees GEMUSE ECG Interpretation Sinus bradycardia Cannot rule out Anterior infarct , age undetermined Abnormal ECG When compared with ECG of 21-JUL-2024 21:42, No significant change was found Confirmed by LIYAH PEREZ ([id number]) on 11/02/2024 11:44:36 AM GEMUSE 11/01/2024 10:4 9 PM EDT 11/02/2024 11:44 AM EDT Kush Vickers MD ECG ORDERABLES Final Result GEMUSE * Urinalysis with reflex microscopic and culture (11/01/2024 9:10 PM EDT) [facility] Specific [place] Urine 1.015 1.003 - 1.030 LAB URINALYSIS - AUTOMATED METHOD 11/01/2024 9:46 PM EDT [facility] pH, Urine 7.0 5.0 - 8.0 pH LAB URINALYSIS - AUTOMATED METHOD 11/01/2024 9:46 PM EDT [facility] Leukocytes, Urine Negative Negative LAB URINALYSIS - AUTOMATED METHOD 11/01/2024 9:46 PM EDT [facility] Nitrite, Urine Negative Negative LAB URINALYSIS - AUTOMATED METHOD 11/01/2024 9:46 PM EDT [facility] Protein, Urine Negative <=Trace mg/dL LAB URINALYSIS - AUTOMATED METHOD 11/01/2024 9:46 PM EDT [facility] Glucose, Urine Negative Negative mg/dL LAB URINALYSIS - AUTOMATED METHOD 11/01/2024 9:46 PM EDT [facility] Ketones, Urine Negative Negative mg/dL LAB URINALYSIS - AUTOMATED METHOD 11/01/2024 9:46 PM EDT [facility] Urobilinogen, Urine 0.2 0.2 - 1.0 mg/dL LAB URINALYSIS - AUTOMATED METHOD 11/01/2024 9:46 PM EDT [facility] Bilirubin, Urine Negative Negative LAB URINALYSIS - AUTOMATED METHOD 11/01/2024 9:46 PM EDT [facility] Blood, Urine Negative Negative LAB URINALYSIS - AUTOMATED METHOD 11/01/2024 9:46 PM EDT [facility] Urine Urine specimen obtained by clean catch procedure / Unknown Non-blood Collection / Unknown 11/01/2024 9:10 PM EDT 11/01/2024 9:40 PM EDT us Kari Parudinds-Brenda PA LAB URINE ORDERABLES F inal Result Performing Organization Address [facility]/ZIP Co de Phone Number [facility] [address] [place] [address], [place] [phone] * Gerard urine culture tube (11/01/2024 9:10 PM EDT) Extra Tube Hold for add-ons. 11/01/2024 11:01 PM EDT [facility] Comment:Auto resulted. Urine Urine specimen obtained by clean catch procedure / Unknown Non-blood Collection / Unknown 11/01/2024 9:10 PM EDT 11/01/2024 9:40 PM EDT Kari Parudinds-Brenda PA LAB URINE ORDERABLES F inal Result Performing Organization Address City/[facility]/ZIP Co de Phone Number [facility] [address] [place] [address], * CT Abdomen Pelvis w Contrast (11/01/2024 [...] This document has been electronically signed by: Anine Salas MD on 11/01/2024 20:16:27 us Kush Vickers MD IM CT PROCEDURES Final Resu lt * (ABNORMAL) CBC auto differential (11/01/2024 5:21 PM EDT) Only the most recent of2 resultswithin the time period is included. WBC 5.2 4.8 - 10.8 K/mcL LAB HEMETOLOGY METHOD 11/01/2024 5:48 PM EDT [facility] RBC 4.10 3.80 - 4.80 M/mcL LAB HEMETOLOGY METHOD 11/01/2024 5:48 PM EDT [facility] Hemoglobin 12.7 11.5 - 16.0 g/dL LAB HEMETOLOGY METHOD 11/01/2024 5:48 PM EDT [facility] Hematocrit 36.6 35.0 - 47.0 % LAB HEMETOLOGY METHOD 11/01/2024 5:48 PM EDT [facility] MCV 88.4 79.0 - 98.0 FL LAB HEMETOLOGY METHOD 11/01/2024 5:48 PM EDT [facility] MCH 30.7 27.0 - 32.0 pcg LAB HEMETOLOGY METHOD 11/01[facility]24 5[facility] MCHC 34.7 32.0 - 37.0 g/dL LAB HEMETOLOGY METHOD 11/01/2024 5:48 PM EDT [facility] RDW 13.2 11.0 - 15.0 % LAB HEMETOLOGY METHOD 11/01/2024 5:48 PM EDT [facility] Platelets 123(L) 130 - 400 K/mcL LAB HEMETOLOGY METHOD 11/01/2024 5:48 PM EDT [facility] MPV 12.2(H) 7.0 - 11.0 FL LAB HEMETOLOGY METHOD 11/01/2024 5:48 PM EDT [facility] NRBC 0.0 <1.0 % LAB HEMETOLOGY METHOD 11/01/2024 5:48 PM EDT [facility] NRBC Absolute 0.00 <0.10 K/mcL LAB HEMETOLOGY METHOD 11/01/2024 5:48 PM EDT [facility] Neutrophils Relative 52.0 % LAB HEMETOLOGY METHOD 11/01/2024 5:48 PM EDT [facility] Lymphocytes Relative 34.2 % LAB HEMETOLOGY METHOD 11/01/2024 5:48 PM EDT [facility] Monocytes Relative 8.7 % LAB HEMETOLOGY METHOD 11/01/2024 5:48 PM [facility] Eosinophils Relative 4.1 % LAB HEMETOLOGY METHOD 11/01/2024 5:48 PM [facility] Basophils Relative 0.6 % LAB HEMETOLOGY METHOD 11/01/2024 5:48 [facility] Immature Granulocytes Relative 0.4 % LAB HEMETOLOGY METHOD 11/01/2024 5:48 PM [facility] Neutrophils Absolute 2.69 1.50 - 7.00 K/mcL LAB HEMETOLOGY METHOD 11/01/2024 5:48 PM [facility] Lymphocytes Absolute 1.77 1.00 - 5.00 K/mcL LAB HEMETOLOGY METHOD 11/01/2024 5:48 PM EDT [facility] Monocytes Absolute 0.45 0.20 - 1.00 K/mcL LAB HEMETOLOGY METHOD 11/01/2024 5:48 PM EDT [facility] Eosinophils Absolute 0.21 0.00 - 0.50 K/mcL LAB HEMETOLOGY METHOD 11/01/2024 5:48 [facility] Basophils Absolute 0.03 0.00 - 0.20 K/mcL LAB HEMETOLOGY METHOD 11/01/2024 5:48 PM EDT [facility] Immature Granulocytes Absolute 0.02 0.00 - 0.03 K/mcL LAB HEMETOLOGY METHOD 11/01/2024 5:48 PM EDT [facility] Blood Venous blood specimen / Unknown Venipuncture / Unknown 11/01/2024 5:21 PM EDT 11/01/2024 5:35 PM EDT Kari ParudikrissyCloud PharmaceuticalsBrenda [place] LAB BLOOD ORDERABLES F inal Result Performing Organization Address City/[facility]/ZIP Co de Phone Number [facility] [address] [place] [address], [place] [phone] * Lipase (11/01/2024 5:21 PM EDT) Lipase 21 13 - 75 unit/L LAB CHEMISTRY METHOD 11/01/2024 6:06 PM EDT [facility] Blood Venous blood specimen / Unknown Venipuncture / Unknown 11/01/2024 5:21 PM EDT 11/01/2024 5:35 PM EDT Kari ParudikalyanRace YourselfBrenda [place] LAB BLOOD ORDERABLES F inal Result Performing Organization Address City/[facility]/ZIP Co de Phone Number [facility] [address] [place] [address], [place] [phone] * (ABNORMAL) Comprehensive metabolic panel (11/01/2024 5:21 PM EDT) Only the most recent of2 resultswithin the time period is included. Sodium 135 133 - 145 mmol/L LAB CHEMISTRY METHOD 11/01/2024 6:06 PM EDT [facility] Potassium 3.9 3.5 - 5.5 mmol/L LAB CHEMISTRY METHOD 11/01/2024 6:06 PM EDT [facility] Chloride 105 96 - 110 mmol/L LAB CHEMISTRY METHOD 11/01/2024 6:06 PM [facility] CO2 25 21 - 32 mmol/L LAB CHEMISTRY METHOD 11/01/2024 6:06 PM [facility] Anion Gap 5 3 - 11 LAB CHEMISTRY METHOD 11/01/2024 6:06 PM [facility] Glucose 81 70 - 100 mg/dL LAB CHEMISTRY METHOD 11/01/2024 6:06 PM [facility] BUN 8 5 - 25 mg/dL LAB CHEMISTRY METHOD 11/01/2024 6:06 PM [facility] Creatinine 0.82 0.50 - 1.10 mg/dL LAB CHEMISTRY METHOD 11/01/2024 6:06 PM [facility] eGFR 80 >=60 mL/min/1. 73m2 LAB CHEMISTRY METHOD 11/01/2024 6:06 PM [facility] Comment:Calculation based on the Chronic Kidney Disease Epidemiology Collaboration (CKD-EPI) equation refit without adjustment for race. BUN/Creatinine Ratio 9.8 LAB CHEMISTRY METHOD 11/01/2024 6:06 PM [facility] Calcium 8.5 8.5 - 10.5 mg/dL LAB CHEMISTRY METHOD 11/01/2024 6:06 PM [facility] AST (SGOT) 14 10 - 42 unit/L LAB CHEMISTRY METHOD 11/01/2024 6:06 PM [facility] ALT (SGPT) 25 10 - 60 unit/L LAB CHEMISTRY METHOD 11/01/2024 6:06 PM [facility] Alkaline Phosphatase 59 42 - 121 unit/L LAB CHEMISTRY METHOD 11/01/2024 6:06 PM [facility] Total Protein 5.9(L) 6.0 - 8.0 g/dL LAB CHEMISTRY METHOD 11/01/2024 6:06 PM [facility] Albumin 3.8 3.2 - 5.0 g/dL LAB CHEMISTRY METHOD 11/01/2024 6:06 PM EDT [facility] Total Bilirubin 0.4 0.0 - 1.4 mg/dL LAB CHEMISTRY METHOD 11/01/2024 6:06 PM EDT [facility] Blood Venous blood specimen / Unknown Venipuncture / Unknown 11/01/2024 5:21 PM EDT 11/01/2024 5:35 PM EDT Kari CARRERA LAB BLOOD ORDERABLES F inal Result [facility] [address] [place] [address], [place] [phone] * Iron and TIBC (10/18/2024 10:48 AM EDT) Iron 64 40 - 150 mcg/dL LAB CHEMISTRY METHOD 10/18/2024 1:52 PM EDT [facility] TIBC 283 250 - 450 mcg/dL LAB CHEMISTRY METHOD 10/18/2024 1:52 PM EDT [facility] Iron Saturation 23 15 - 50 % LAB CHEMISTRY METHOD 10/18/2024 1:52 PM EDT [facility] Blood Venous blood specimen / Unknown Venipuncture / Unknown 10/18/2024 10:48 AM EDT 10/18/2024 10:48 AM EDT Meenakhsi CARRERA LAB BLOOD ORDERABLES Final Result [facility] [address] [place] [address], [place] [phone] * Hemoglobin A1c (10/18/2024 10:48 AM EDT) Hemoglobin A1C 4.8 <6.5 % LAB CHEMISTRY METHOD 10/18/2024 9:38 PM EDT [facility] Mean Bld Glu Estim. 91 mg/dL LAB CHEMISTRY METHOD 10/18/2024 9:38 PM EDT [facility] Blood Venous blood specimen / Unknown Venipuncture / Unknown 10/18/2024 10:48 AM EDT 10/18/2024 10:48 AM EDT Kat Nevarez MD LAB BLOOD ORDERABL ES Final Result [facility] [address] [place] [address], [place] [phone] * External CT Report (08/22/2024) Anatomical Region Laterality Modality Computed Tomogra phy Provider [facility] IMG CT PROCEDURES Final Result * XR Shoulder 2+ Views Left (08/03/2024 11:10 AM EDT) Anatomical Region Laterality Modality Upper Extremities, Shoulder Left Comp uted Radiography 08/04/2024 12:5 7 PM EDT Impressions 08/04/2024 1:05 PM EDT Impacted humeral neck fracture again noted with evidence of healing. No significant change in alignment. POS - [id number] -------- FINAL REPORT -------- Dictated By: Marguerite Castaneda Dictated Date: 08/04/2024 12:57 ET Assigned Physician: Marguerite Castaneda Reviewed and Electronically Signed By: Marguerite Castaneda Signed Date: 08/04/2024 13:05 ET Workstation ID: [id number] Transcribed By: Self Edit Transcribed Date: 08/04/2024 12:57 ET Narrative 08/04/2024 1:05 PM EDT EXAM: Left shoulder x-ray HISTORY: Left shoulder pain. History of a proximal humerus fracture in May. COMPARISON: 05/22/2024 and 05/16/2024 FINDINGS: 3 views performed. Unable to perform an axillary view due to loss of range of motion. Comminuted impacted humeral neck fracture again noted with sclerotic changes at the fracture site from interval healing. No significant change in alignment. No dislocation at the glenohumeral joint. Mild degenerative changes at the acromioclavicular joint. Minimal spurring at the glenohumeral joint. No soft tissue calcifications apparent. Procedure Note Marguerite Castaneda MD - 08/04/2024 EXAM: Left shoulder x-ray HISTORY: Left shoulder pain. History of a proximal humerus fracture inApril. COMPARISON: 05/22/2024 and 05/16/2024 FINDINGS: 3 views performed. Unable to perform an axillary view due to loss of rangeof motion. Comminuted impacted humeral neck fracture again noted with scleroticchanges at the fracture site from interval healing. No significant changein alignment. No dislocation at the glenohumeral joint. Mild degenerativechanges at the acromioclavicular joint. Minimal spurring at theglenohumeral joint. No soft tissue calcifications apparent. IMPRESSION: Impacted humeral neck fracture again noted with evidence of healing. Nosignificant change in alignment. POS - [id number] -------- FINAL REPORT -------- Dictated By: Marguerite Castaneda Dictated Date: 08/04/2024 12:57 ET Assigned Physician: Marguerite Castaneda Reviewed and Electronically Signed By: Marguerite Castaneda Signed Date: 08/04/2024 13:05 ET Workstation ID: [id number] Transcribed By: Self Edit Transcribed Date: 08/04/2024 12:57 ET Haley Lara MD IMG XR PROCEDURES Final Result * Lipid panel with reflex to direct LDL (04/21/2024 2:05 PM EDT) Cholesterol 115 0 - 200 mg/dL LAB CHEMISTRY METHOD 04/21/2024 7:22 PM EDT [facility] Triglycerides 143 0 - 150 mg/dL LAB CHEMISTRY METHOD 04/21/2024 7:22 PM EDT [facility] HDL 44 >=40 mg/dL LAB CHEMISTRY METHOD 04/21/2024 7:22 PM EDT [facility] LDL Calculated 42 0 - 100 mg/dL LAB CHEMISTRY METHOD 04/21/2024 7:22 PM EDT [facility] VLDL Cholesterol Mansoor 28.6 mg/dL LAB CHEMISTRY METHOD 04/21/2024 7:22 PM EDT [facility] Non HDL Chol. (LDL+VLDL) 71 <145 mg/dL LAB CHEMISTRY METHOD 04/21/2024 7:22 PM EDT [facility] Chol/HDL Ratio 2.6 0.0 - 4.4 LAB CHEMISTRY METHOD 04/21/2024 7:22 PM EDT [facility] Blood Venous blood specimen / Unknown Venipuncture / Unknown 04/21/2024 2:05 PM EDT 04/21/2024 2:15 PM EDT Maggie CARRERA LAB BLOOD ORDERABLES Final Re sult [facility] [address] [place] [address], * Urine Albumin Creatinine Ratio (10/20/2023) Urine Albumin Creatinine Ratio abstracted Historical Provider HEALTH MAINTENANCE Final Result * Cervical Cancer Screening: HPV (11/11/2022) Pathologist [facility] Cervical Cancer Screening: HPV abstracted; negative Historical Provider HEALTH MAINTENANCE Final Result * GISELLE SCREENING DIGITAL (01/14/2022 7:00 PM EST) Anatomical Region Laterality Modality Mammography 01/14/2022 10:2 7 AM EST Narrative 01/14/2022 7:00 PM EST [facility] Diagnostic Imaging Department [address] [place] [address] Patient: MARGOT QUINTERO Beena /Age/Sex: 1960 - 61 - F Unit#: [id number] Location/Status: SPDIMAM/REG CLI Mnemonic/Ordering Site: [facility] Ordering Physician: KAT BECERRIL Giselle Screening Digital - 01/14/221102 History: Bilateral breast cancer screening. Family history breast cancer affecting maternal grandmother. Technique: Bilateral digital mammography. Conventional CC and MLO projections with tomosynthesis MLO views and computer aided detection. Comparison: 01/09/2021, dating back to 09/05/2002. Breast density: Breast tissue consists of mostly fatty tissue, category a density (as calculated by [employer] software). Findings: There is no suspicious group of microcalcification, suspicious mass, architectural distortion or suspicious change in breast density. Impression: No mammographic evidence of malignancy. BIRADS category 1; negative study, 3341F 24787, [id number] A negative mammogram in the face of a suspicious abnormality does not exclude the possibility of malignancy nor alter the indications for biopsy. Note: Patient information entered into a reminder system with a target due date for the next mammogram; PQRI II 7084F Dictating Physician: JACEK VELEZ MD Electronically Signed by: JACEK VELEZ MD Dic Date/Time: 01/14/22 1858 Sign date/Time: 01/14/22 190 Procedure Note Jacek Velez MD - 03/12/2023 [facility] Diagnostic Imaging Department [address] [place] [id number] Patient: MARGOT QUINTERO Beena /Age/Sex: 1960 - 61 - F Unit#: [id number] Location/Status: SPDIMAM/REG CLI Mnemonic/Ordering Site: [facility] Ordering Physician: KAT BECERRIL Giselle Screening Digital - 01/14/22 - 1103 History: Bilateral breast cancer screening. Family history breastcancer affecting maternal grandmother. Technique: Bilateral digital mammography. Conventional CC and MLOprojections with tomosynthesis MLO views and computer aided detection. Comparison: 01/09/2021, dating back to 09/05/2002. Breast density: Breast tissue consists of mostly fatty tissue, categorya density (as calculated by [employer] software). Findings: There is no suspicious group of microcalcification, suspicious mass, architectural distortion or suspicious change in breast density. Impression: No mammographic evidence of malignancy. BIRADS category 1; negative study, 3341F 64223, 31201 A negative mammogram in the face of a suspicious abnormality does notexclude the possibility of malignancy nor alter the indications for biopsy. Note: Patient information entered into a reminder system with a targetdue date for the next mammogram; PQRI II 7040F Dictating Physician: JACEK VELEZ MD Electronically Signed by: JACEK VELEZ MD Dic Date/Time: 01/14/221857 Sign date/Time: 01/14/22 1900 us Kat Nevarez MD IMG BI PROCEDURES Final Result * Hepatitis C Screening (03/15/2006) Hepatitis C Screening abstracted us Historical Provider HEALTH MAINTENANCE Final Result from Last 3 Months or Most Recently Relevant to Health Maintenance Insurance [facility] MEDICARE Member Subscriber Plan / Payer (Ef fective 2019-Present) Name:MARGOT QUINTERO Relation to Subscriber:Self Name:Pieter Margot Beena Payer ID:[id number] Group ID:[id number] Type:Not on file Address: [place] [address] [id number] Advance Directives Documents on File Type Date Recorded 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 Do not modify or discontinue any currently active code status orders. * Full Code - Default Date Activated Date Inactivated Comments 04/21/2024 6:09 PM 04/24/2024 7:44 PM This is orde r is used when code status has not been discussed with the patient, or code status is otherwise unknown/unconfirmed To update the patient's code status, place a code status order. Do not modify or discontinue any currently active code status orders. * Full Code - Default Date Activated Date Inactivated Comments 12/27/2023 8:46 PM 12/29/2023 8:48 PM This is or emily is used when code status has not been discussed with the patient, or code status is otherwise unknown/unconfirmed To update the patient's code status, place a code status order. Do not modify or discontinue any currently active code status orders. Healthcare Agents on File Name Relationship Healthcare Agent Relationship Communication Geovanny Quintero Spouse Health Care Agent Care Teams Echo Technologist Relationship Specialty Start Date End Date Kat Nevarez MD [address] [place] [address] PCP - General Internal Medicine 01/18/10
--- OUTSIDE RECORDS SUMMARY | 2024-11-03 13:36 | XMS_ITS | Encounter Summary ---
Author Organization [facility] Address [address] [place] [address] Care Team Providers Care Eyeglass Frames Polisher Name Role Phone Kat Nevarez MD Primary Care Prov ider Encounter Details Date Type Department Care Team (Late st Contact Info) Description 04/29/[address] [facility] [address] [facility] [place] [address] Cesar Albert MD [address] [facility] [address] [place], [address] Anemia, unspecified; Type 2 diabetes mellitus without complications (CMS/HCC V24, CMS/HCC V28); Chronic obstructive pulmonary disease with (acute) lower respiratory infection (CMS/HCC V24, CMS/HCC V28) Social History Tobacco [...] care for your loved ones. For example, salesperson children's shoes or elderly care for an older adult? [...] Entry Date Author No 04/21/2024 3:18 PM Chanel Maldondao RN documented in this encounter Plan of Treatment Upcoming Encounters Date Type Department Care Team (Late st Contact Info) Description 11/08/2024 10:00 AM EDT Office Visit Internal Medicine - [address] [phone] Hari Hernandez NP [address] [place], [place] 11/27/2024 10:30 AM EDT Office Visit Obstetrics and Gynecology - [place] [address] [place] [address] Elisabet Morton CNM [address] [place], [place] 02/19/2025 10:30 AM EST Office Visit Adult Medicine - [place] [address] [place] [phone] Meenakshi Garcia PA [address] [place] [address] 04/19/2025 10:50 AM EDT Consult Gastroenterology - [employer] [address] [facility] [address] [facility] [address] [place] [phone] Hollie Edwards PA [address] [facility] [address] [place] [address] 06/22/2025 10:30 AM EDT Office Visit Bariatric Surgery - [employer] [address] [facility] [address] [place] [phone] Gladys Jones MD [address] [place] [address] documented as of this encounter Visit Diagnoses Diagnosis Anemia, unspecified Type 2 diabetes mellitus without complications ([facility] V24, [facility] V28) Chronic obstructive pulmonary disease with (acute) lower respiratory infection ([facility] V24, [facility] V28) documented in this encounter Additional Health Concerns Infection Onset Date Last Indicated Resolved Time Respiratory Rule-Out 07/22/2024 07/22/2024 025 2:14 AM EDT COVID-19 Rule-Out 07/22/2024 07/22/2024 07/22/2024 2:14 AM EDT documented as of this encounter Care Teams Eyeglass Frames Polisher Relationship Specialty Start Date End Date Kat Nevarez MD [address] [place] [address] PCP - General Internal Medicine 01/18/10 documented as of this encounter
--- OUTSIDE RECORDS SUMMARY | 2024-11-03 13:36 | XMS_ITS | Encounter Summary ---
Author Organization [facility] Address [address] [place] [address] Care Team Providers Care Television Cabinet Finisher Name Role Phone Kat Nevarez MD Primary Care Prov ider Encounter Details Date Type Department Care Team (Late st Contact Info) Description 05/01/2024 Lab Requisition [facility] - Main Lab [address] [facility] [place] [address] Cesar Albert MD 38 [facility] [address] [place], [phone] Anemia, unspecified; Type 2 diabetes mellitus [...] for your loved ones. For example, childcare teacher or elderly care for an older [...] AM EDT Office Visit Internal Medicine - [address] [phone] Hari Hernandez, ELIZABETH [address] [place], [place] 11/27/2024 10:30 AM EDT Office Visit Obstetrics and Gynecology - [place] [address] [place] [address] Elisabet Morton, TORSTEN [address] [place], [place] 02/19/2025 10:30 AM EST Office Visit Adult Medicine - [place] [address] [place] [address] Meenakshi Garcia PA [address] [place], [place] 04/19/2025 10:50 AM EDT Consult Gastroenterology - [place] [address] [facility] [address] [place] [phone] Hollie Edwards PA 175 [facility] [address] [place] [address] 06/22/2025 10:30 AM EDT Office Visit Bariatric Surgery - [place] [address] [facility] [address] [place] [phone] Gladys Jones MD [address] [place] [address] documented as of this encounter Procedures Procedure Name Priority Date/Time Associated Diagnosis Comments COMPLETE BLOOD COUNT Routine 05/02/2024 6:29 AM EDT Anemia, unspecified Type 2 diabetes mellitus without complications Chronic obstructive pulmonary disease, unspecified BASIC METABOLIC PANEL Routine 05/02/2024 6:29 AM EDT Anemia, unspecified Type 2 diabetes mellitus without complications Chronic obstructive pulmonary disease, unspecified documented in this encounter Results * (ABNORMAL) Basic metabolic panel (05/02/2024 6:29 AM EDT) Sodium 142 133 - 145 mmol/L LAB CHEMISTRY METHOD 05/02/2024 10:17 AM [facility] Potassium 4.3 3.5 - 5.5 mmol/L LAB CHEMISTRY METHOD 05/02/2024 10:17 AM [facility] Chloride 107 96 - 110 mmol/L LAB CHEMISTRY METHOD 05/02/2024 10:17 AM [facility] CO2 33(H) 21 - 32 mmol/L LAB CHEMISTRY METHOD 05/02/2024 10:17 AM [facility] Anion Gap 2(L) 3 - 11 LAB CHEMISTRY METHOD 05/02/2024 10:17 AM EDT [facility] Glucose 64(L) 70 - 100 mg/dL LAB CHEMISTRY METHOD 05/02/2024 10:17 AM T [facility] BUN 9 5 - 25 mg/dL LAB CHEMISTRY METHOD 05/02/2024 10:17 AM [facility] Creatinine 0.74 0.50 - 1.10 mg/dL LAB CHEMISTRY METHOD 05/02/2024 10:17 AM EDT [facility] eGFR 91 >=60 mL/min/1. 73m2 LAB CHEMISTRY METHOD 05/02/2024 10:17 AM [facility] Comment:Calculation based on the Chronic Kidney Disease Epidemiology Collaboration (CKD-EPI) equation refit without adjustment for race. BUN/Creatinine Ratio 12.2 LAB CHEMISTRY METHOD 05/02/2024 10:17 AM [facility] Calcium 8.6 8.5 - 10.5 mg/dL LAB CHEMISTRY METHOD 05/02/2024 10:17 AM [facility] Blood Venous blood specimen / Unknown Venipuncture / Unknown 05/02/2024 6:29 AM EDT 05/02/2024 9:38 AM EDT us Cesar Albert MD LAB BLOOD ORDERABLES Final Resul t [facility] [address] [place] [address], * (ABNORMAL) Complete blood count (05/02/2024 6:29 AM EDT) WBC 4.5(L) 4.8 - 10.8 K/mcL LAB HEMETOLOGY METHOD 05/02/2024 10:21 AM T [facility] RBC 3.60(L) 3.80 - 4.80 M/mcL LAB HEMETOLOGY METHOD 05/02/2024 10:21 AM EDT [facility] Hemoglobin 11.6 11.5 - 16.0 g/dL LAB HEMETOLOGY METHOD 05/02/2024 10:21 AM [facility] Hematocrit 34.3(L) 35.0 - 47.0 % LAB HEMETOLOGY METHOD 05/02/2024 10:21 AM [facility] MCV 94.2 79.0 - 98.0 FL LAB HEMETOLOGY METHOD 05/02/2024 10:21 AM [facility] MCH 31.9 27.0 - 32.0 pcg LAB HEMETOLOGY METHOD 05/02/2024 10:21 AM [facility] MCHC 33.8 32.0 - 37.0 g/dL LAB HEMETOLOGY METHOD 05/02/2024 10:21 AM [facility] RDW 12.9 11.0 - 15.0 % LAB HEMETOLOGY METHOD 05/02/2024 10:21 AM [facility] Platelets 96(L) 130 - 400 K/mcL LAB HEMETOLOGY METHOD 05/02/2024 10:21 AM [facility] Comment:Large platelets seen . Reviewed by slide MPV 14.0(H) 7.0 - 11.0 FL LAB HEMETOLOGY METHOD 05/02/2024 10:21 AM [facility] NRBC 0.0 <1.0 % LAB HEMETOLOGY METHOD 05/02/2024 10:21 AM [facility] NRBC Absolute 0.00 <0.10 K/mcL LAB HEMETOLOGY METHOD 05/02/2024 10:21 AM [facility] Blood Venous blood specimen / Unknown Venipuncture / Unknown 05/02/2024 6:29 AM EDT 05/02/2024 9:38 AM EDT us Cesar Albert MD LAB BLOOD ORDERABLES Final Resul t [facility] [address] [place] [address], documented in this encounter Visit Diagnoses Diagnosis Anemia, unspecified Type 2 diabetes mellitus without complications ([facility] V24, [facility] V28) Chronic obstructive pulmonary disease, unspecified ([facility] V24, [facility] V28) documented in this encounter Additional Health Concerns Infection Onset Date Last Indicated Resolved Time Respiratory Rule-Out 07/22/2024 07/22/2024 025 2:14 AM EDT COVID-19 Rule-Out 07/22/2024 07/22/2024 07/22/2024 2:14 AM EDT documented as of this encounter Care Teams Television Cabinet Finisher Relationship Specialty Start Date End Date Kat Nevarez MD [address] [place] [id number] PCP - General Internal Medicine 01/18/10 documented as of this encounter
--- OUTSIDE RECORDS SUMMARY | 2024-11-03 13:36 | XMS_ITS | Encounter Summary ---
Author Organization [facility] Address [address] [place] [address] Care Team Providers Care Studio Operations Manager Name Role Phone Kat Nevarez MD Primary Care Prov ider Encounter Details Date Type Department Care Team (Late st Contact Info) Description 05/12/[address] [facility] - Main Lab [address] [facility] [place] [address] Cesar Albert MD 38 [facility] [address] [place], [phone] Anemia, unspecified; Type 2 diabetes mellitus [...] care for your loved ones. For example, infant childcare provider or elderly care for an older adult? [...] AM EDT Office Visit Internal Medicine - [address] [phone] Hari Hernandez, ELIZABETH [address] [place], [place] 11/27/2024 10:30 AM EDT Office Visit Obstetrics and Gynecology - [place] [address] [place] [address] Elisabet Morton, TORSTEN [address] [place], [place] 02/19/2025 10:30 AM EST Office Visit Adult Medicine - [place] [address] [place] [address] Meenakshi Garcia PA [address] [place], [place] 04/19/2025 10:50 AM EDT Consult Gastroenterology - [place] [address] [facility] [address] [place] [phone] Hollie Edwards PA [address] [place] [address] 06/22/2025 10:30 AM EDT Office Visit Bariatric Surgery - [place] [address] [facility] [address] [place] [phone] Gladys Jones MD [address] [place] [phone] documented as of this encounter Visit Diagnoses [...] documented as of this encounter Care Teams Studio Operations Manager Relationship Specialty Start Date End Date Kat Nevarez MD [address] [place] [address] PCP - General Internal Medicine 01/18/10 documented as of this encounter
== END 2024-11-03 12:27 | disposition home or self-care (01) ==
LOC: HO.HNS 11:39
PROVIDERS: PCP Internal Medicine; Visit Provider Neurological Surgery
DX: Z98.1 Arthrodesis status (principal); R29.818 Other symptoms and signs involving the nervous system
CPT/HCPCS: 99213

== ENCOUNTER 2024-11-03 11:38 | Outpatient (REF) | payer OTHER, SELFPAY ==
--- NOTE | ~2024-11-03 | XR_ITS ---
EXAMINATION: XR LUMBOSACRAL SPINE CLINICAL INFORMATION: Z98.1 - Arthrodesis status COMPARISON: December 09, 2022 TECHNIQUE: Lateral views in neutral, flexion and extension position. AP view lumbar spine. FINDINGS: Trans pedicle screws at L3-4, bilaterally. Status post intervertebral disc spacer placement L3-4. 1 mm anterolisthesis in neutral position which persists during flexion and extension position at L3-4. Multilevel endplate sclerosis and small marginal osteophyte formation throughout the axial skeleton. Decreased intervertebral disc height at L5-S1. S-shaped curvature of the thoracolumbar spine. No lytic or blastic lesions. XR/XR lumbar spine 4V min IMPRESSION: Status post posterior lumbar fusion and intervertebral body disc spacer placement at L3-4 without gross instability. Electronically signed by: Sandoval Garcia MD 11/03/2024 12:20 PM EDT
== END 2024-11-03 11:39 | disposition home or self-care (01) ==
LOC: HO.HOSX 11:38
PROVIDERS: PCP Internal Medicine; Visit Provider Neurological Surgery
DX: Z98.1 Arthrodesis status (principal); R29.818 Other symptoms and signs involving the nervous system; M54.50 Low back pain, unspecified
CPT/HCPCS: 72110; 99212

== ENCOUNTER → 2024-11-03 12:03 | Outpatient (BNV) | payer OTHER, SELFPAY | PROVIDERS: PCP Internal Medicine; Visit Provider Radiology Diagnostic Radiology | DX: Z98.1 Arthrodesis status (principal) | CPT/HCPCS: 72110 ==